=== PATIENT | male | born 1940 | race Caucasian/White ===

== ENCOUNTER 2017-11-14 09:29 | Inpatient (IN) | payer OTHER ==
[~2017-11-14] VITALS: Ht 182.9 cm; Wt 158.7 kg
[~2017-11-14 09:29] MED LIST: ALBU1AER9 INH; ALPR-411 PO; ATOR-24 PO; GABA-112 PO; LPD600 PO; LPR25 PO; MELO7.5T5 PO; OXYC-57 PO
[2017-11-14] MEDS ORDERED: FENTANYL CITRATE INJ 50 MCG/1 ML 2 ML VIAL IV STA (09:40)
[2017-11-14] MEDS ORDERED: ASCO1CAP3 PO (09:47)
[2017-11-14] MEDS ORDERED: ASPI81TA28 PO (09:47)
[2017-11-14] MEDS ORDERED: OMEG10007 PO (09:47)
[2017-11-14] MEDS ORDERED: MULT-506 PO (09:47)
--- NOTE | 2017-11-14 09:52 | EMERGENCY ROOM VISIT NOTE ---
History Report prepared by Ralph: Rinku Figueroa Under the Supervision of: Dr. Chino Brown M.D. First contact with patient: 09:10 Chief Complaint: FALL Stated Complaint: FALL - R HIP PAIN History of Present Illness The patient is a 77 year old male who presents to the Emergency Room with complaints of right hip pain s/p mechanical fall. Notes severe right hip pain initially which is improved. Also with pain in right wrist. no head/neck injury. No blood thinner use. Notes unable to walk due to pain. Given 100mcg fentanyl by EMS with improvement in pain. No history of hip/wrist injuries. Previous bilateral knee surgeries many years ago. Ate 4 hours prior to arrival. Source of History: patient Onset: [employer] Position: other (R hip) Timing: constant Modifying Factors (Worsening): movement Associated Symptoms: No LOC, No headache, No neck pain, No chest pain Note: Patient reports right wrist pain. He denies head strike, syncope, and shoulder pain. Review of Systems See HPI for pertinent positives & negatives. A total of 10 systems reviewed and were otherwise negative. Past Medical & Surgical Medical Problems: (1) Hyperlipidemia Surgical Problems: (1) History of knee surgery (2) S/P cholecystectomy Family History Diabetes mellitus Social History Smoking Status: Former Smoker Alcohol Use: none Drug Use: none Marital Status: Housing Status: lives with family Occupation Status: retired Current/Historical Medications Scheduled Ascorbic Acid (Vitamin C), 500 MG PO DAILY Aspirin (Aspirin Ec), 81 MG PO DAILY Atorvastatin (Lipitor), 20 MG PO HS Fish Oil ([place]-3), 1 CAP PO DAILY Gabapentin (Neurontin), 400 MG PO TID Gemfibrozil (Gemfibrozil), 600 MG PO BID Metoprolol Tartrate (Lopressor), 12.5 MG PO BID Multivitamin (Multivitamin), 1 TAB PO DAILY Scheduled PRN Albuterol (Proair Hfa), 2 PUFFS INH Q4H PRN for SOB/Wheezing Allergies Coded Allergies: No Known Allergies (Unverified , 10/26/14) Physical Exam Vital Signs Date Time Temp Pulse Resp B/P (MAP) Pulse Ox O2 Delivery O2 Flow Rate FiO2 11/14/17 12:00 77 17 146/79 94 Nasal Cannula 3.0 11/14/17 10:37 73 17 140/68 93 Nasal Cannula 3.0 11/14/17 09:56 67 18 122/58 93 Nasal Cannula 3.0 11/14/17 09:44 91 Nasal Cannula 3.0 11/14/17 09:39 36.9 68 18 124/70 86 Room Air Physical Exam GENERAL: Patient is uncomfortable appearing and in moderate distress. HEENT: No acute trauma, normocephalic atraumatic, mucous membranes moist, no nasal congestion, no scleral icterus. NECK: No stridor, no adenopathy, no meningismus, trachea is midline. LUNGS: No dyspnea. Clear to auscultation and equal bilaterally. No wheeze, no rhonchi. HEART: Regular rate and rhythm. No murmurs, rubs, gallops appreciated. ABDOMEN: Soft, nontender, bowel sounds positive, no masses appreciated, no peritonitis. BACK: No midline tenderness, no CVA tenderness EXTREMITIES: No cyanosis, no edema. Shortened externally rotated right leg. Tenderness to palpation of proximal femur. Severe pain of range of motion of right leg. Distal pulses in tact. Deformity of right wrist. Tenderness to palpation over right distal radius pain on range of motion. NEUROLOGIC: Alert and oriented, no acute motor or sensory deficits, no focal weakness, cranial nerves grossly intact. SKIN: No rash, no jaundice, no diaphoresis. Mild peripheral vascular disease under skin Medical Decision & Procedures ER Provider Diagnostic Interpretation: Radiology results and stated below per my review and radiologist interpretation: SINGLE VIEW CHEST CLINICAL HISTORY: Fall. Preoperative examination FINDINGS: An AP, portable, semierect chest radiograph is compared to study dated 11/04/2014 and correlated with chest CT dated 10/27/2014. The examination is degraded by portable technique and apical lordotic positioning. The heart is top normal for projection and there is atherosclerotic calcification of the thoracic aorta. Chronic interstitial thickening is similar to previous. There is chronic elevation of the left hemidiaphragm. Linear atelectasis/scarring is again seen in the left lower lung. There is no airspace consolidation typical for pneumonia or large pleural effusion. No pneumothorax is seen. The skeletal structures are osteopenic. The bony thorax is grossly intact. Arthritic change is noted in the shoulders. IMPRESSION: Chronic parenchymal changes as above with no acute cardiopulmonary abnormality. Electronically signed by: Eddie Crum M.D. 11/14/2017 10:52 AM Dictated Date/Time: 11/14/2017 10:50 AM SINGLE VIEW PELVIS; 2 VIEWS RIGHT FEMUR CLINICAL HISTORY: Fall with right hip pain. FINDINGS: AP view of the pelvis with AP and crosstable lateral views of the right femur are obtained. No prior studies are available for comparison at the time of dictation. Skeletal structures are osteopenic. The bony pelvis and the left proximal femur are intact. There is a mildly distracted intertrochanteric fracture of the right proximal femur with mild angulation and medial avulsion of the lesser trochanter. Overlying soft tissue edema is observed. The distal right femur is intact. Arthritic changes present in the hips and right knee. Large enthesophytes arise from the anterior superior iliac spine. Postoperative changes partially imaged in the right tibial plateau. Chronic appearing deformity is questioned in the left pubic ring. Lumbosacral spondylosis is partially imaged. Calcified phleboliths are observed in the pelvis. No bowel obstruction is seen. IMPRESSION: 1. Intertrochanteric fracture of the right femur as above with overlying soft tissue edema. 2. The remainder of the right femur appears intact. 3. No acute fracture is clearly seen involving the bony pelvis or the left hip. 4. Question chronic posttraumatic deformity in the left pubic ring. Correlation with the patient's medical history will be required. Consider dedicated left hip views if there is clinical concern for left pubic ring fracture. 5. Osteopenia and degenerative change as above. Electronically signed by: Eddie Crum M.D. 11/14/2017 10:59 AM Dictated Date/Time: 11/14/2017 10:55 AM RIGHT FOREARM 2 VIEWS; RIGHT WRIST 5 VIEWS CLINICAL HISTORY: Fall with right wrist injury. FINDINGS: AP and lateral views of the right forearm with 5 additional views of the right wrist are obtained. No prior studies are available for comparison at the time of dictation. The wrist films are degraded by suboptimal positioning. The skeletal structures are osteopenic. There is a tiny avulsion fracture of the ulnar styloid. There is an impacted and comminuted fracture of the distal radial metaphysis with intra-articular extension. There are posteriorly distracted fragments and mild apex dorsal angulation. Significant overlying soft tissue edema is observed. There is a nondistracted fracture involving the distal aspect of the scaphoid. Advanced arthritic change is present at the first carpometacarpal joint with bony sclerosis, overgrowth, and subluxation. Milder arthritic change is seen throughout the remainder of the wrist. Arthritic change is also seen at the distal radioulnar joint. No erosive disease is identified. The proximal radius and ulna are intact. The elbow joint is grossly preserved. IMPRESSION: 1. There is an impacted and comminuted fracture of the distal radial metaphysis with intra-articular extension as detailed above with overlying soft tissue edema. 2. There is a small avulsion fracture of the ulnar styloid. 3. There is a nondistracted fracture of the distal scaphoid. 4. Osteopenia and arthritic change as above. Electronically signed by: Eddie Crum M.D. 11/14/2017 11:05 AM Dictated Date/Time: 11/14/2017 11:00 AM SINGLE VIEW PELVIS; 2 VIEWS RIGHT FEMUR CLINICAL HISTORY: Fall with right hip pain. FINDINGS: AP view of the pelvis with AP and crosstable lateral views of the right femur are obtained. No prior studies are available for comparison at the time of dictation. Skeletal structures are osteopenic. The bony pelvis and the left proximal femur are intact. There is a mildly distracted intertrochanteric fracture of the right proximal femur with mild angulation and medial avulsion of the lesser trochanter. Overlying soft tissue edema is observed. The distal right femur is intact. Arthritic changes present in the hips and right knee. Large enthesophytes arise from the anterior superior iliac spine. Postoperative changes partially imaged in the right tibial plateau. Chronic appearing deformity is questioned in the left pubic ring. Lumbosacral spondylosis is partially imaged. Calcified phleboliths are observed in the pelvis. No bowel obstruction is seen. IMPRESSION: 1. Intertrochanteric fracture of the right femur as above with overlying soft tissue edema. 2. The remainder of the right femur appears intact. 3. No acute fracture is clearly seen involving the bony pelvis or the left hip. 4. Question chronic posttraumatic deformity in the left pubic ring. Correlation with the patient's medical history will be required. Consider dedicated left hip views if there is clinical concern for left pubic ring fracture. 5. Osteopenia and degenerative change as above. Electronically signed by: Eddie Crum M.D. 11/14/2017 10:59 AM Dictated Date/Time: 11/14/2017 10:55 AM RIGHT FOREARM 2 VIEWS; RIGHT WRIST 5 VIEWS CLINICAL HISTORY: Fall with right wrist injury. FINDINGS: AP and lateral views of the right forearm with 5 additional views of the right wrist are obtained. No prior studies are available for comparison at the time of dictation. The wrist films are degraded by suboptimal positioning. The skeletal structures are osteopenic. There is a tiny avulsion fracture of the ulnar styloid. There is an impacted and comminuted fracture of the distal radial metaphysis with intra-articular extension. There are posteriorly distracted fragments and mild apex dorsal angulation. Significant overlying soft tissue edema is observed. There is a nondistracted fracture involving the distal aspect of the scaphoid. Advanced arthritic change is present at the first carpometacarpal joint with bony sclerosis, overgrowth, and subluxation. Milder arthritic change is seen throughout the remainder of the wrist. Arthritic change is also seen at the distal radioulnar joint. No erosive disease is identified. The proximal radius and ulna are intact. The elbow joint is grossly preserved. IMPRESSION: 1. There is an impacted and comminuted fracture of the distal radial metaphysis with intra-articular extension as detailed above with overlying soft tissue edema. 2. There is a small avulsion fracture of the ulnar styloid. 3. There is a nondistracted fracture of the distal scaphoid. 4. Osteopenia and arthritic change as above. Electronically signed by: Eddie Crum M.D. 11/14/2017 11:05 AM Dictated Date/Time: 11/14/2017 11:00 AM Laboratory Results 11/14/17 09:52 Red Blood Count 4.65, Mean Corpuscular Volume 100.0, Mean Corpuscular Hemoglobin 33.8, Mean Corpuscular Hemoglobin Concent 33.8, Mean Platelet Volume 12.6, Neutrophils (%) (Auto) 78.6, Lymphocytes (%) (Auto) 13.2, Monocytes (%) ( Auto) 6.1, Eosinophils (%) (Auto) 1.3, Basophils (%) (Auto) 0.5, Neutrophils # ( Auto) 5.87, Lymphocytes # (Auto) 0.99, Monocytes # (Auto) 0.46, Eosinophils # ( Auto) 0.10, Basophils # (Auto) 0.04 11/14/17 09:52 Test 11/14/17 09:52 White Blood Count 7.48 K/uL (4.8-10.8) Red Blood Count 4.65 M/uL (4.7-6.1) Hemoglobin 15.7 g/dL (14.0-18.0) Hematocrit 46.5 % (42-52) Mean Corpuscular Volume 100.0 fL (80-100) Mean Corpuscular Hemoglobin 33.8 pg (25-34) Mean Corpuscular Hemoglobin Concent 33.8 g/dl (32-36) Platelet Count 91 K/uL (130-400) Mean Platelet Volume 12.6 fL (7.4-10.4) Neutrophils (%) (Auto) 78.6 % Lymphocytes (%) (Auto) 13.2 % Monocytes (%) (Auto) 6.1 % Eosinophils (%) (Auto) 1.3 % Basophils (%) (Auto) 0.5 % Neutrophils # (Auto) 5.87 K/uL (1.4-6.5) Lymphocytes # (Auto) 0.99 K/uL (1.2-3.4) Monocytes # (Auto) 0.46 K/uL (0.11-0.59) Eosinophils # (Auto) 0.10 K/uL (0-0.5) Basophils # (Auto) 0.04 K/uL (0-0.2) RDW Standard Deviation 46.7 fL (36.4-46.3) RDW Coefficient of Variation 12.9 % (11.5-14.5) Immature Granulocyte % (Auto) 0.3 % Immature Granulocyte # (Auto) 0.02 K/uL (0.00-0.02) Platelet Estimate DECREASED Prothrombin Time 11.4 SECONDS (9.0-12.0) Prothromb Time International Ratio 1.1 (0.9-1.1) Activated Partial Thromboplast Time 23.8 SECONDS (21.0-31.0) Partial Thromboplastin Ratio 0.9 Anion Gap 3.0 mmol/L (3-11) Est Creatinine Clear Calc Drug Dose 103.0 ml/min Estimated GFR () 92.0 Estimated GFR (Non- 79.4 BUN/Creatinine Ratio 23.6 (10-20) Calcium Level 9.3 mg/dl (8.5-10.1) Troponin I < 0.015 ng/ml (0-0.045) Laboratory results as reviewed by me. Medications Administered Medications (Trade) Dose Ordered Sig/Lacey Route Start Time Stop Time Status Last Admin Dose Admin Fentanyl Citrate (Fentanyl Inj) 100 mcg NOW STAT IV 11/14/17 09:40 11/14/17 09:41 DC 11/14/17 09:59 100 MCG Ondansetron HCl (Zofran Inj) 4 mg STK-MED ONCE .ROUTE 11/14/17 10:00 11/14/17 10:01 DC 11/14/17 10:02 4 MG ECG Indication: other (Fall) Rate (beats per minute): 64 Rhythm: normal sinus Findings: PAC, other (bifascicular block; QTC of 474) Change: EKG interpreted by me. ED Course 909: The patient was evaluated in room B4. A complete history and physical exam was performed. 1000: The patient was nauseous after pain meds and is being given Zofran. 1103: I checked on the patient and his pain is under control. Orthopedics is paged. 1115: I spoke with Dr. Lino of orthopedics. 1129: I spoke with Dr. Magana and discussed the patient's case. The patient will be evaluated for further treatment and disposition. Medical Decision Pleasant 77 yr old male with mechanical fall at home resulting in right hip pain and right wrist pain. Pain controlled with IV narcotics. Imaging reveals right hip and wrist fractures. Ortho on board, splint wrist until OR later today. Pre-op labs/cxr/ekg done. No CT Head/Neck as no injury nor pain in these areas. Head Trauma GCS Score: 15 Medication Reconcilliation Current Medication List: was personally reviewed by me Blood Pressure Screening Patient's blood pressure: Normal blood pressure Blood pressure disposition: Did not require urgent referral Consults Time Called: 1113 Consulting Physician: Dr. Maico Lino Returned Call: [address] Lino of orthopedics and discussed the patient plan. Additional Consults: Time Called: 1120 Consulted Physician: Dr. Magana Returned Call: 1125 Additional Comments: Discussed the patient's case. The patient will be evaluated for further treatment and disposition. Impression Primary Impression: Intertrochanteric fracture of right hip Additional Impression: Right wrist fracture Scribe Attestation The scribe's documentation has been prepared under my direction and personally reviewed by me in its entirety. I confirm that the note above accurately reflects all work, treatment, procedures, and medical decision making performed by me. Departure Information Dispostion Being Evaluated By Hospitalist Referrals Maico Mcdonald D.O. (PCP) Patient Instructions My [facility] Problem Qualifiers
[2017-11-14] MEDS ORDERED: ONDANSETRON INJ 2 MG/ML 2 ML VIAL ONE (10:00)
[2017-11-14 10:17] LABS: INR 1.1 (0.9-1.1); PTT PATIENT 23.8 SECONDS (21.0-31.0)
[2017-11-14 10:22] LABS: BLOOD UREA NITROGEN 22 mg/dl (7-18); CALCIUM 9.3 mg/dl (8.5-10.1); CARBON DIOXIDE 30 mmol/L (21-32); CREATININE 0.92 mg/dl (0.60-1.40); GLUCOSE 173 mg/dl (70-99); POTASSIUM 4.3 mmol/L (3.5-5.1); SODIUM 139 mmol/L (136-145)
[2017-11-14 10:33] LABS: BASO % 0.5 %; BASO ABS # 0.04 K/uL (0-0.2); EOS % 1.3 %; HEMATOCRIT 46.5 % (42-52); HEMOGLOBIN 15.7 g/dL (14.0-18.0); IG# 0.02 K/uL (0.00-0.02); LYMPH % 13.2 %; LYMPH ABS # 0.99 K/uL (1.2-3.4); MEAN CORPUSCULAR HEMOGLOBIN 33.8 pg (25-34); MEAN CORPUSCULAR HGB CONC 33.8 g/dl (32-36); MEAN PLATELET VOLUME 12.6 fL (7.4-10.4); MONO % 6.1 %; MONO ABS # 0.46 K/uL (0.11-0.59); NEUT % 78.6 %; NEUT ABS # 5.87 K/uL (1.4-6.5); PLATELET COUNT 91 K/uL (130-400); RED CELL DISTRIBUTION WIDTH CV 12.9 % (11.5-14.5); RED CELL DISTRIBUTION WIDTH SD 46.7 fL (36.4-46.3); WHITE BLOOD COUNT 7.48 K/uL (4.8-10.8)
--- NOTE | 2017-11-14 10:54 | DIAGNOSTIC IMAGING REPORT ---
SINGLE VIEW CHEST CLINICAL HISTORY: Fall. Preoperative examination FINDINGS: An AP, portable, semierect chest radiograph is compared to study dated 11/04/2014 and correlated with chest CT dated 10/27/2014. The examination is degraded by portable technique and apical lordotic positioning. The heart is top normal for projection and there is atherosclerotic calcification of the thoracic aorta. Chronic interstitial thickening is similar to previous. There is chronic elevation of the left hemidiaphragm. Linear atelectasis/scarring is again seen in the left lower lung. There is no airspace consolidation typical for pneumonia or large pleural effusion. No pneumothorax is seen. The skeletal structures are osteopenic. The bony thorax is grossly intact. Arthritic change is noted in the shoulders. IMPRESSION: Chronic parenchymal changes as above with no acute cardiopulmonary abnormality. Electronically signed by: Eddie Crum M.D. 11/14/2017 10:52 AM Dictated Date/Time: 11/14/2017 10:50 AM
--- NOTE | 2017-11-14 11:00 | DIAGNOSTIC IMAGING REPORT ---
SINGLE VIEW PELVIS; 2 VIEWS RIGHT FEMUR CLINICAL HISTORY: Fall with right hip pain. FINDINGS: AP view of the pelvis with AP and crosstable lateral views of the right femur are obtained. No prior studies are available for comparison at the time of dictation. Skeletal structures are osteopenic. The bony pelvis and the left proximal femur are intact. There is a mildly distracted intertrochanteric fracture of the right proximal femur with mild angulation and medial avulsion of the lesser trochanter. Overlying soft tissue edema is observed. The distal right femur is intact. Arthritic changes present in the hips and right knee. Large enthesophytes arise from the anterior superior iliac spine. Postoperative changes partially imaged in the right tibial plateau. Chronic appearing deformity is questioned in the left pubic ring. Lumbosacral spondylosis is partially imaged. Calcified phleboliths are observed in the pelvis. No bowel obstruction is seen. IMPRESSION: 1. Intertrochanteric fracture of the right femur as above with overlying soft tissue edema. 2. The remainder of the right femur appears intact. 3. No acute fracture is clearly seen involving the bony pelvis or the left hip. 4. Question chronic posttraumatic deformity in the left pubic ring. Correlation with the patient's medical history will be required. Consider dedicated left hip views if there is clinical concern for left pubic ring fracture. 5. Osteopenia and degenerative change as above. Electronically signed by: Eddie Crum M.D. 11/14/2017 10:59 AM Dictated Date/Time: 11/14/2017 10:55 AM
--- NOTE | 2017-11-14 11:06 | DIAGNOSTIC IMAGING REPORT ---
RIGHT FOREARM 2 VIEWS; RIGHT WRIST 5 VIEWS CLINICAL HISTORY: Fall with right wrist injury. FINDINGS: AP and lateral views of the right forearm with 5 additional views of the right wrist are obtained. No prior studies are available for comparison at the time of dictation. The wrist films are degraded by suboptimal positioning. The skeletal structures are osteopenic. There is a tiny avulsion fracture of the ulnar styloid. There is an impacted and comminuted fracture of the distal radial metaphysis with intra-articular extension. There are posteriorly distracted fragments and mild apex dorsal angulation. Significant overlying soft tissue edema is observed. There is a nondistracted fracture involving the distal aspect of the scaphoid. Advanced arthritic change is present at the first carpometacarpal joint with bony sclerosis, overgrowth, and subluxation. Milder arthritic change is seen throughout the remainder of the wrist. Arthritic change is also seen at the distal radioulnar joint. No erosive disease is identified. The proximal radius and ulna are intact. The elbow joint is grossly preserved. IMPRESSION: 1. There is an impacted and comminuted fracture of the distal radial metaphysis with intra-articular extension as detailed above with overlying soft tissue edema. 2. There is a small avulsion fracture of the ulnar styloid. 3. There is a nondistracted fracture of the distal scaphoid. 4. Osteopenia and arthritic change as above. Electronically signed by: Eddie Crum M.D. 11/14/2017 11:05 AM Dictated Date/Time: 11/14/2017 11:00 AM
[2017-11-14] MEDS ORDERED: ALBUTEROL HFA 8 GM INHALER INH PRN (12:30)
[2017-11-14] MEDS ORDERED: ACETAMINOPHEN 325 MG TAB PO PRN (12:30)
[2017-11-14] MEDS ORDERED: ALUMINUM/MAGNESIUM/SIMETH (MAALOX MAX) 30 ML UDC PO PRN (12:30)
[2017-11-14] MEDS ORDERED: ONDANSETRON INJ 2 MG/ML 2 ML VIAL IV PRN ×2 (12:30→15:00)
[2017-11-14] MEDS ORDERED: POLYETHYLENE (MIRALAX) 17 GM PACK PO PRN (12:30)
[2017-11-14 13:30] VITALS: BP 108/76; PULSE 79; TEMP 36.9; O2SAT 94
--- NOTE | 2017-11-14 13:36 | HISTORY & PHYSICAL EXAMINATION ---
DATE OF ADMISSION: 11/14/2017 CHIEF COMPLAINT: Status post mechanical fall and right wrist fracture. HISTORY OF PRESENT ILLNESS: This 77-year-old male with past medical history significant for hyperlipidemia, hypertension, presents with mechanical fall and right hip and right wrist fracture. The patient lives alone. He has 2 dogs and today morning when he was checking on his dogs he tripped over and fell down on his right side. His son lives close by and helps him. He was brought into the ER and was found to have impacted and comminuted fracture distal radius with intraarticular extension, avulsion fracture ulnar styloid, nondisplaced fracture of the distal scaphoid and intertrochanteric fracture of the right femur. The patient says pain is under control. The patient said he did not pass out. Denies any chest pain or shortness of breath. No cough, no fever, no chills, no runny nose, no sore throat, no difficulty swallowing. No headaches. No blurred visions, no dizziness, no nausea, no vomiting, no abdominal pain. Appetite is good. Normal bowel and bladder movements. No swelling in the legs. The patient says he is active walks daily, son takes him out. He has no trouble climbing steps. Denies any cardiac problems. Denies any pulmonary issues. Currently resting comfortably, hemodynamically stable. ALLERGIES: No known drug allergies. PAST MEDICAL HISTORY: As mentioned above. PAST SURGICAL HISTORY: Cholecystectomy, umbilical hernia repair, right knee surgery. MEDICATIONS AT HOME: The patient is on Lopressor 12.5 mg p.o. b.i.d. Lipitor 20 mg p.o. at bedtime, gabapentin 400 mg p.o. t.i.d., aspirin 81 mg p.o. daily, albuterol 2 puffs inhalation q. 4 hours p.r.n., but as per patient, he only takes Lopressor and statin. FAMILY HISTORY: Significant for son has hemochromatosis. Mother has cancer. SOCIAL HISTORY: , lives alone. Son checks on him. No tobacco abuse. Quit alcohol a long time back. Used to drink heavily in the past. No drug use. Retired. REVIEW OF SYMPTOMS: As per HPI. Rest of review of symptoms negative. PHYSICAL EXAMINATION: GENERAL: The patient is obese, not in distress. VITAL SIGNS: Temperature 36.9, pulse 77, respirations 17, blood pressure 146/79, oxygen 94% on 3 liters. HEAD, EYES, EARS, NOSE, AND THROAT: No pallor, no icterus. Pupils equal, round and reactive to light. NECK: No JVD, no neck masses, no carotid bruits. CARDIOVASCULAR: S1, S2 heard, regular rate and rhythm, no murmur, no gallop. RESPIRATORY SYSTEM: Clear to auscultation bilaterally. No wheezing, no crackles. ABDOMEN: Soft, bowel sounds present. Nontender. No distention. CENTRAL NERVOUS SYSTEM: Cranial nerves 2-12 grossly intact. Nonfocal. EXTREMITIES: Right wrist slightly swollen. Right lower extremity is shortened and externally rotated. LABORATORY DATA: WBC 7.4, hemoglobin 15.7, hematocrit 46.5, platelets 91. Sodium 139, potassium 4.3, chloride 106, bicarbonate 30, BUN 22, creatinine 0.9, serum glucose 170. Calcium 9.3. Troponin 1 less than 0.015. PT 11.4, INR 1.1. PTT 23.8. Right forearm x-ray shows impacted and comminuted fracture distal radial metaphysis with intraarticular extension, small avulsion fracture of the ulnar styloid, nondisplaced fracture of the distal scaphoid, osteopenia. Pelvis x ray intertrochanteric fracture of the right femur. Chest x-ray, no acute cardiopulmonary abnormalities seen. EKG: Shows normal sinus rhythm with PACs at a rate of 64, right bundle branch block, left anterior fascicular block, right bundle branch block and Left anterior fascicular clocks are are old. ASSESSMENT AND PLAN: This 77-year-old male presents with mechanical fall and right hip and right wrist fracture. 1. Status post mechanical fall right hip and right wrist fracture. Pain control, gentle fluids, ortho consult. Prior to falling, the patient is active and walks daily. No cardiac issues. Chest x-ray unremarkable. EKG unremarkable except for PACs. We will repeat EKG. The patient should be at acceptable risk to proceed with surgery. 2. Hypertension. Continue his Lopressor. Monitor the blood pressure in the hospital. 3. Hyperlipidemia. Continue statin. 4. Obstructive sleep apnea. Continue BiPAP with oxygen 2 liters while sleeping Will also check his lipid profile and hemoglobin HBA1c levels. 5. Deep venous thrombosis prophylaxis, SCDs for now and a postop DVT prophylaxis as per orthopedics. DISPOSITION: Admit to medical floor. PT, OT prior to discharge. Social Service to help with discharge planning. LEVEL 1 FULL CODE. MTDD
[2017-11-14 14:04] VITALS: BP 108/76; PULSE 79; TEMP 36.9; O2SAT 91; O2SAT 94; Ht 182.9 cm; Wt 158.7 kg
[2017-11-14] MEDS: HYDROmorphone INJ 0.5 MG/0.5 ML SYR IV PRN ×3 (14:24→21:22)
[2017-11-14] MEDS: SODIUM CHLORIDE 0.9% 1000ML 1,000 ML IV SCH (14:24)
[2017-11-14] MEDS: GABAPENTIN 400 MG CAP PO SCH ×2 (14:35→21:24)
[2017-11-14] MEDS ORDERED: LABETALOL HCL IV 5 MG/ML 20ML IV PRN (15:00)
[2017-11-14] MEDS ORDERED: ATROPINE SULFATE 0.1 MG/ML 5ML SYR IV PRN (15:00)
[2017-11-14] MEDS ORDERED: FENTANYL CITRATE INJ 50 MCG/1 ML 2 ML VIAL IV PRN (15:00)
[2017-11-14] MEDS ORDERED: HYDROmorphone INJ 1 MG/ML SYR IV PRN (15:00)
[2017-11-14] MEDS ORDERED: MEPERIDINE HCL 25 MG/ML CARP IV PRN (15:00)
[2017-11-14] MEDS ORDERED: EpHEDrine SULFATE INJ 50 MG/ML AMP IV PRN (15:00)
--- NOTE | 2017-11-14 15:27 | Orthopedic Consultation ---
Orthopedic Consultation Date of Consultation: Nov 14, 2017. Attending Physician: Joo Fraser M.D. Reason for Consultation: Right hip, right wrist injury History of Present Illness 77 y.o. male sustained a mechanical ground level fall this morning when he tripped over a dog bed. He denies any syncopal episode or LOC. Fell onto right hip and outstretched right arm. Had immediate pain and inability to bear weight right hip. Right wrist much less painful than right hip. Past Medical/Surgical History Medical Problems: (1) Intertrochanteric fracture of right hip Status: Acute (2) Right wrist fracture Status: Acute Family History Diabetes mellitus Social History Smoking Status: Unknown if Ever Smoked Alcohol Use: none Drug Use: none Marital Status: single Housing Status: lives alone Occupation Status: retired Allergies Coded Allergies: No Known Allergies (Unverified , 10/26/14) Home Medications Scheduled Ascorbic Acid (Vitamin C), 500 MG PO DAILY Aspirin (Aspirin Ec), 81 MG PO DAILY Atorvastatin (Lipitor), 20 MG PO HS Fish Oil ([place]-3), 1 CAP PO DAILY Gabapentin (Neurontin), 400 MG PO TID Gemfibrozil (Gemfibrozil), 600 MG PO BID Metoprolol Tartrate (Lopressor), 12.5 MG PO BID Multivitamin (Multivitamin), 1 TAB PO DAILY Scheduled PRN Albuterol (Proair Hfa), 2 PUFFS INH Q4H PRN for SOB/Wheezing Current Inpatient Medications Current Inpatient Medications Medications (Trade) Dose Ordered Sig/Lacey Route Start Time Stop Time Status Last Admin Dose Admin Acetaminophen (Tylenol Tab) 650 mg Q4H PRN PO 11/14/17 12:30 12/14/17 12:29 Al Hydrox/Mg Hydrox/Simethicone (Maalox Max Susp) 15 ml Q4H PRN PO 11/14/17 12:30 12/14/17 12:29 Polyethylene (Miralax Powder Packet) 17 gm DAILY PRN PO 11/14/17 12:30 12/14/17 12:29 Ondansetron HCl (Zofran Inj) 4 mg Q6H PRN IV 11/14/17 12:30 12/14/17 12:29 Albuterol (Ventolin Hfa Inhaler) 2 puffs Q4H PRN INH 11/14/17 12:30 12/14/17 12:29 Atorvastatin Calcium (Lipitor Tab) 20 mg HS PO 11/14/17 21:00 12/14/17 20:59 Gabapentin (Neurontin Cap) 400 mg TID PO 11/14/17 14:00 12/14/17 13:59 Gemfibrozil (Lopid Tab) 600 mg BID PO 11/14/17 21:00 12/14/17 20:59 Metoprolol Tartrate (Lopressor Tab) 12.5 mg BID PO 11/14/17 21:00 12/14/17 20:59 Multivitamins (Multivitamin Tab) 1 tab DAILY PO 11/15/17 09:00 12/15/17 08:59 Ascorbic Acid (Vitamin C Tab) 500 mg DAILY PO 11/15/17 09:00 12/15/17 08:59 Sodium Chloride 1,000 ml @ 100 mls/hr Q10H IV 11/14/17 14:30 12/14/17 14:29 11/14/17 14:24 100 MLS/HR Hydromorphone HCl (Dilaudid Inj) 0.5 mg Q3HWA PRN IV 11/14/17 12:30 11/28/17 12:29 11/14/17 14:24 0.5 MG Fentanyl Citrate (Fentanyl Inj) 50 mcg Q5M PRN IV 11/14/17 15:00 11/15/17 14:59 UNV Hydromorphone HCl (Dilaudid Inj) 0.5 mg Q5M PRN IV 11/14/17 15:00 11/15/17 14:59 UNV Meperidine HCl (Demerol Inj) 25 mg Q5M PRN IV 11/14/17 15:00 11/15/17 14:59 UNV Ondansetron HCl (Zofran Inj) 4 mg ONE PRN IV 11/14/17 15:00 11/15/17 14:59 UNV Labetalol HCl (Normodyne IV) 5 mg Q5M PRN IV 11/14/17 15:00 11/15/17 14:59 UNV Ephedrine Sulfate (EpHEDrine SULFATE INJ) 5 mg Q5M PRN IV 11/14/17 15:00 11/15/17 14:59 UNV Atropine Sulfate (Atropine Sulfate 0.1mg/ml Inj) 0.5 mg Q1M PRN IV 11/14/17 15:00 11/15/17 14:59 UNV Physical Exam Date Time Temp Pulse Resp B/P (MAP) Pulse Ox O2 Delivery O2 Flow Rate FiO2 11/14/17 14:04 36.9 79 20 108/76 94 Nasal Cannula 3.0 11/14/17 13:30 36.9 79 20 108/76 (87) 94 Nasal Cannula 3.0 11/14/17 13:06 77 17 146/79 94 11/14/17 12:00 77 17 146/79 94 Nasal Cannula 3.0 11/14/17 10:37 73 17 140/68 93 Nasal Cannula 3.0 11/14/17 09:56 67 18 122/58 93 Nasal Cannula 3.0 11/14/17 09:44 91 Nasal Cannula 3.0 11/14/17 09:39 36.9 68 18 124/70 86 Room Air Right leg: Appears shortened and externally rotated. Pain with attempts at motion. Skin over hip intact. No lacerations. No significant swelling. Motor and sensory intact distally in tibial/peroneal distributions. Foot warm and well perfused. Right wrist: Mild swelling. Minimal pain, except with ROM. Skin intact. No lacerations. Motor and sensory intact median, radial, ulnar distributions. Compartments soft and compressible, no pain with passive stretch. Hand is warm and well perfused, 2+ radial pulse. General Appearance: no apparent distress Head: normocephalic Eyes: normal inspection Laboratory Results Last 24 Hours Test 11/14/17 09:52 White Blood Count 7.48 K/uL Red Blood Count 4.65 M/uL Hemoglobin 15.7 g/dL Hematocrit 46.5 % Mean Corpuscular Volume 100.0 fL Mean Corpuscular Hemoglobin 33.8 pg Mean Corpuscular Hemoglobin Concent 33.8 g/dl Platelet Count 91 K/uL Mean Platelet Volume 12.6 fL Neutrophils (%) (Auto) 78.6 % Lymphocytes (%) (Auto) 13.2 % Monocytes (%) (Auto) 6.1 % Eosinophils (%) (Auto) 1.3 % Basophils (%) (Auto) 0.5 % Neutrophils # (Auto) 5.87 K/uL Lymphocytes # (Auto) 0.99 K/uL Monocytes # (Auto) 0.46 K/uL Eosinophils # (Auto) 0.10 K/uL Basophils # (Auto) 0.04 K/uL RDW Standard Deviation 46.7 fL RDW Coefficient of Variation 12.9 % Immature Granulocyte % (Auto) 0.3 % Immature Granulocyte # (Auto) 0.02 K/uL Platelet Estimate DECREASED Prothrombin Time 11.4 SECONDS Prothromb Time International Ratio 1.1 Activated Partial Thromboplast Time 23.8 SECONDS Partial Thromboplastin Ratio 0.9 Sodium Level 139 mmol/L Potassium Level 4.3 mmol/L Chloride Level 106 mmol/L Carbon Dioxide Level 30 mmol/L Anion Gap 3.0 mmol/L Blood Urea Nitrogen 22 mg/dl Creatinine 0.92 mg/dl Est Creatinine Clear Calc Drug Dose 103.0 ml/min Estimated GFR () 92.0 Estimated GFR (Non- 79.4 BUN/Creatinine Ratio 23.6 Random Glucose 173 mg/dl Calcium Level 9.3 mg/dl Troponin I < 0.015 ng/ml Radiology: Right hip intertroch fracture, lesser troch off, no significant subtroch extension. Right wrist distal radius fracture, mostly radial styloid pattern with dorsal subluxation of carpus. Assessment & Plan (1) Right wrist fracture Assessment & Plan: Comminuted right distal radius intraarticular fracture, mostly radial styloid, with dorsal displacement of carpus. -Will require ORIF. Plan for concurrent fixation with hip fracture. (2) Intertrochanteric fracture of right hip Assessment & Plan: Right intertrochanteric hip fracture. Will require ORIF on urgent basis. NPO for surgery. Problem Qualifiers (1) Right wrist fracture: Encounter type: initial encounter Fracture type: closed Qualified Codes: S62.101A - Fracture of unspecified carpal bone, right wrist, initial encounter for closed fracture (2) Intertrochanteric fracture of right hip: Encounter type: initial encounter Fracture type: closed Fracture alignment: displaced Qualified Codes: S72.141A - Displaced intertrochanteric fracture of right femur, initial encounter for closed fracture
[2017-11-14 16:24] VITALS: BP 121/82; PULSE 76; TEMP 36.9; O2SAT 94
[2017-11-14] MEDS: ATORVASTATIN 20 MG TAB PO SCH (21:24)
[2017-11-14] MEDS: METOPROLOL TARTRATE 25 MG TAB PO SCH (21:24)
[2017-11-14] MEDS: GEMFIBROZIL 600 MG TAB PO SCH (21:24)
[2017-11-14 22:29] VITALS: PULSE 94; O2SAT 93
[2017-11-14 23:35] VITALS: BP 119/80; PULSE 91; TEMP 36.7; O2SAT 81
[2017-11-14 23:38] VITALS: O2SAT 92
[2017-11-15] VITALS (8 sets, daily range): BP systolic 99–144; BP diastolic 57–86; PULSE 85–104; TEMP 36.3–36.9; O2SAT 91–98
[2017-11-15] MEDS ORDERED: HYDROmorphone INJ 1 MG/ML SYR IV ONE (00:01)
[2017-11-15] MEDS ORDERED: HYDROmorphone INJ 1 MG/ML SYR IV PRN ×2 (00:15→09:30)
[2017-11-15] MEDS: SODIUM CHLORIDE 0.9% 1000ML 1,000 ML IV SCH ×2 (02:08→16:11)
[2017-11-15 06:46] LABS: HEMOGLOBIN 14.5 g/dL (14.0-18.0); MEAN CELL VOLUME 102.1 fL (80-100); MEAN CORPUSCULAR HEMOGLOBIN 33.6 pg (25-34); MEAN PLATELET VOLUME 12.4 fL (7.4-10.4); PLATELET COUNT 113 K/uL (130-400); RED CELL DISTRIBUTION WIDTH CV 13.1 % (11.5-14.5); RED CELL DISTRIBUTION WIDTH SD 49.2 fL (36.4-46.3); WHITE BLOOD COUNT 10.44 K/uL (4.8-10.8)
[2017-11-15 07:11] LABS: CALCIUM 8.7 mg/dl (8.5-10.1); CREATININE 1.09 mg/dl (0.60-1.40); POTASSIUM 4.9 mmol/L (3.5-5.1)
[2017-11-15 07:26] LABS: BASO % 0.4 %; BASO ABS # 0.04 K/uL (0-0.2); EOS % 0.3 %; EOS ABS # 0.03 K/uL (0-0.5); IG# 0.02 K/uL (0.00-0.02); LYMPH % 11.9 %; LYMPH ABS # 1.24 K/uL (1.2-3.4); MONO % 12.3 %; MONO ABS # 1.28 K/uL (0.11-0.59); NEUT % 74.9 %; NEUT ABS # 7.83 K/uL (1.4-6.5)
[2017-11-15] MEDS ORDERED: MIDAZOLAM HCL 1 MG/ML 2ML VIAL ONE (07:44)
[2017-11-15] MEDS ORDERED: BUPIVACAINE 0.5 % 5 MG/1 ML MPF 30ML VIAL ONE ×2 (07:45→09:46)
[2017-11-15] MEDS ORDERED: LIDOCAINE HCL 1% 20 ML VIAL ONE ×2 (07:45→09:46)
[2017-11-15] MEDS ORDERED: FENTANYL CITRATE INJ 50 MCG/1 ML 2 ML VIAL ONE (07:45)
--- NOTE | 2017-11-15 07:51 | History & Physical Bridge Note ---
H&P Re-Evaluation Bridge Note: I have examined the patient, reviewed the History & Physical and in the interval since the performance of the History & Physical I have noted the following changes of clinical significance: No changes noted
[2017-11-15] MEDS: GABAPENTIN 400 MG CAP PO SCH ×3 (09:00→21:10)
[2017-11-15] MEDS: METOPROLOL TARTRATE 25 MG TAB PO SCH ×2 (09:00→21:10)
[2017-11-15] MEDS ORDERED: NEOSTIGMINE METHYLSULFATE 5 MG/5 ML SYR ONE (09:14)
[2017-11-15] MEDS ORDERED: LIDOCAINE HCL 2% 2 ML VIAL (20MG/ML) ONE (09:14)
[2017-11-15] MEDS ORDERED: PHENYLEPHRINE 100MCG/ML 5ML SYR ONE (09:14)
[2017-11-15] MEDS ORDERED: GLYCOPYRROLATE INJ 0.2 MG/ML VIAL ONE (09:14)
[2017-11-15] MEDS ORDERED: EpHEDrine SULFATE 50MG/5ML SYR ONE (09:14)
[2017-11-15] MEDS ORDERED: ONDANSETRON INJ 2 MG/ML 2 ML VIAL ONE (09:14)
[2017-11-15] MEDS ORDERED: ROCURONIUM BROMIDE 10 MG/ML 5 ML VIAL IV ONE (09:14)
[2017-11-15] MEDS ORDERED: PROPOFOL IV EMULSION 10 MG/ML 20 ML VIAL IV ONE (09:14)
[2017-11-15] MEDS ORDERED: DEXAMETHASONE SOD INJ 4 MG/ML VIAL ONE (09:14)
[2017-11-15] MEDS ORDERED: ATROPINE SULFATE 0.1 MG/ML 5ML SYR IV PRN (09:30)
[2017-11-15] MEDS ORDERED: LABETALOL HCL IV 5 MG/ML 20ML IV PRN (09:30)
[2017-11-15] MEDS ORDERED: EpHEDrine SULFATE INJ 50 MG/ML AMP IV PRN (09:30)
[2017-11-15] MEDS ORDERED: FENTANYL CITRATE INJ 50 MCG/1 ML 2 ML VIAL IV PRN (09:30)
[2017-11-15] MEDS ORDERED: ONDANSETRON INJ 2 MG/ML 2 ML VIAL IV PRN (09:30)
[2017-11-15] MEDS ORDERED: MEPERIDINE HCL 25 MG/ML CARP IV PRN (09:30)
[2017-11-15] MEDS ORDERED: PHENYLEPHRINE HCL INJ 10 MG/ML VIAL ONE (09:49)
--- NOTE | 2017-11-15 11:47 | DIAGNOSTIC IMAGING REPORT ---
R WRIST 2 VIEWS HISTORY: 77 years-old Male RIGHT DISTAL RADIUS AND RIGHT TROCH NAIL status post ORIF of the right wrist COMPARISON: Right wrist radiographs 11/14/2017 TECHNIQUE: 4 spot fluoroscopic images of the right wrist were obtained utilizing 100.4 seconds fluoroscopy time. FINDINGS: Status post ORIF of the comminuted, intra-articular and impacted distal radial fracture with placement of a dorsal plate with multiple fixation screws. There is improved alignment. Previously noted subtle fracture of the scaphoid not clearly seen. Multifocal degenerative changes again noted. Expected postsurgical soft tissue swelling and deep tissue air about the distal radius. Ulnar styloid fracture noted. IMPRESSION: Status post ORIF of the comminuted intra-articular distal radial fracture with improved alignment. The above report was generated using voice recognition software. It may contain grammatical, syntax or spelling errors. Electronically signed by: Sundeep Haji M.D. 11/15/2017 11:45 AM Dictated Date/Time: 11/15/2017 11:43 AM
--- NOTE | 2017-11-15 11:49 | DIAGNOSTIC IMAGING REPORT ---
R HIP OR FILMS HISTORY: 77 years-old Male RIGHT DISTAL RADIUS AND RIGHT TROCH NAIL status post placement of a trochanteric nail within the right femur. COMPARISON: Right femur radiographs 11/14/2017 TECHNIQUE: 5 spot fluoroscopic images of the right femur were obtained utilizing 108.5 seconds fluoroscopy time. FINDINGS: Status post placement of an intratrochanteric nail within the femoral neck with medullary katey fixating the previously noted displaced acute intertrochanteric fracture. There is improved alignment. The bones appear mildly demineralized. Surgical janet are noted overlying the left thigh. Single cannulated screw traverses the medullary katey within the proximal diaphyseal right femur. IMPRESSION: Status post placement of an trochanteric nail fixating the previously described acute intertrochanteric fracture of the right femur demonstrating improved alignment. The above report was generated using voice recognition software. It may contain grammatical, syntax or spelling errors. Electronically signed by: Sundeep Haji M.D. 11/15/2017 11:48 AM Dictated Date/Time: 11/15/2017 11:45 AM
--- NOTE | 2017-11-15 11:55 | [facility] Post Operative Brief Note ---
Immediate Operative Summary Operative Date Nov 15, 2017. Pre-Operative Diagnosis Right comminuted intertrochanteric hip fracture, Right wrist comminuted 3-part intraarticular distal radius fracture Post-Operative Diagnosis Right comminuted intertrochanteric hip fracture, Right wrist comminuted 3-part intraarticular distal radius fracture Procedure(s) Performed Right Hip Trochanteric Nail; Open Reduction Internal Fixation Right Wrist Fracture Surgeon Dr. Lino Adjunct Professor Of Voice Surgeon(s) Maico Garcia PA-C Estimated Blood Loss 100 mL Findings Consistent with Post-Op Diagnosis Fluids (cc crystalloids) 1500 Specimens None per surgeon Drains None Anesthesia Type General Complication(s) none Disposition Accompanied Pt To Recover: no Disposition: Recovery Room / PACU
[2017-11-15] MEDS ORDERED: CEFAZOLIN IV 2,000 MG in DEXTROSE 5% 50ML 50 ML IV SCH (12:30)
--- NOTE | 2017-11-15 12:37 | [facility] Operative Report ---
Operative Report Operative Date Nov 15, 2017. Pre-Operative Diagnosis 1. Right comminuted intertrochanteric hip fracture 2. Right wrist comminuted 4-part intraarticular distal radius fracture Post-Operative Diagnosis Same Procedure(s) Performed 1. Intramedullary nailing of right comminuted intertrochanteric hip fracture ( 51870) 2. ORIF of right wrist comminuted 4-part intraarticular distal radius fracture (06072) Surgeon Dr. Lino Orange Picker Machine Operator Surgeon(s) Maico Garcia PA-C Estimated Blood Loss 100 mL Findings Comminuted fractures of hip and distal radius Fluids 1500 Specimens None per surgeon Drains None Anesthesia General Complication(s) None Disposition Recovery Room / PACU Indications 77-year-old male who injured his right wrist and right hip after ground-level fall. X-rays showed comminuted and displaced fractures of his right intertrochanteric hip, and right distal radius. Surgical intervention was recommended for optimal future outcome. Description of Procedure Implants used: Hip: Synthes [id number] intermediate length Trochanteric Fixation Nail with an [id number] helical blade and a 5x46mm distal locking screw Wrist: Synthes 7-hole distal, 4-hole shaft 2.4/2.7mm dual column variable angle distal radius volar locking plate Mr. Medrano was identified in the preoperative holding area. Operative extremities were marked. He was then brought back to the operating room and placed supine on the operating room table. General anesthesia was induced without complication. 2 g of Ancef were infused intravenously for antibiotic prophylaxis. He was then positioned on the fracture table with the right leg in longitudinal traction and the left leg up in the well leg diehl. All bony prominences were well-padded. Traction was then applied to the right hip, and reduction maneuvers were performed under fluoroscopic imaging. Once acceptable reduction was achieved, we then prepped and draped the right hip and sterile sterile fashion using chlorhexidine prep. I localized the tip of the greater trochanter under fluoroscopic imaging. Incision was made proximal to this. I carried the incision through the thick subcutaneous adipose tissue layer down to the deep fascia, which was incised in line with its fibers. Greater trochanter was palpated. Entry guidewire was placed at the tip of the greater trochanter in proper position as visualized under fluoroscopic imaging. The guidewire was then advanced into the greater trochanter, and the entry reamer was passed over this wire. There was significant lateral displacement of the femoral shaft from the comminuted intratrochanteric segment, and therefore a ball-tipped guidewire was passed through the entry hole in the greater trochanter down into the femoral shaft while holding the femoral shaft medially reduced. I then selected a Synthes [id number] intermediate length Trochanteric Fixation Nail for fixation. This was passed over the ball-tipped guidewire and impacted down into proper position. At this point I then focused on the comminuted proximal portion of the fracture. Jay elevator was passed through the proximal incision over the anterior femoral neck. This was forced posteriorly to correct the apex-anterior angulation across the fracture site. I then held this reduction while advancing a guidewire up into the femoral neck and head into proper center-center position under fluoroscopic imaging. We then measured for the helical blade, and selected a 115 mm length helical blade. The helical blade drill was then set to appropriate depth and drilled over the guidewire. Helical blade was then impacted into place. Finally I attached the targeting guide for the distal locking screw. This was drilled and measured at 46 mm. Final fluoroscopic imaging was taken to ensure proper hardware position, screw length, and fracture reduction. I was satisfied with all these things. Wounds were copiously irrigated with sterile saline. Deep fascia was closed with #1 Vicryl suture, and deep subcutaneous tissue was also closed with #1 Vicryl suture. Subcutaneous tissues closed with 2-0 Vicryl, and skin was closed with janet. Wound bed was then anesthetized with a 50-50 mixture of 1% lidocaine and 0.5% Marcaine without epinephrine. Sterile dressings were then applied with Xeroform, sterile gauze, and foam tape. Drapes were then removed. We then turned attention to the right wrist injury. Tourniquet was placed on the right upper arm. Right arm was then prepped and draped in standard sterile fashion using chlorhexidine prep. The right arm was exsanguinated with an Esmarch, and then tourniquet was inflated. I then made a longitudinal incision to the radial side of the flexor carpi radialis tendon. I cheated the incision more radial than normal, due to the comminuted portion of the fracture mostly involving the radial styloid. Dissection was carried bluntly through the subcutaneous tissue. Radial artery and superficial sensory branch of the radial nerve were identified and protected throughout the procedure. I dissected down to the fracture site. Pronator quadratus muscle was elevated off the volar aspect radius from radial to ulnar. This exposed the significantly comminuted radial styloid fracture site. There was some articular impaction visible within the fracture line. This was elevated with a freer elevator. I then performed a reduction maneuver to reduce the radial styloid fragments. 2 separate K-wires were inserted through the separate fragments to hold them in a reduced position while applying the fixation plate. Once I had achieved acceptable reduction, I then selected an appropriate plate from the Synthes variable angle 2 column volar distal radius locking plate set. I selected a plate with 7 hole width distally. Unfortunately, the plate with 3 shaft holes was not available, so the plate with 4 shaft holes was selected. This was pinned into appropriate position. I verified proper plate position under fluoroscopic imaging. Fracture reduction required some additional manipulation and provisional pinning at this point. The fragment positions were adjusted as necessary to achieve proper acceptable reduction. I first inserted to screws into the radial shaft first all the plate proper position. I used a 2.7 mm cortical screws for this. I then placed the 2.4 mm variable-angle distal locking screws. I first focused on the radial styloid. Again fracture fragments were manipulated to achieve proper reduction, and then screws were advanced into the radial styloid. This was repeated throughout the 5 screw holes in the distal row. I finally placed 1 more screw from the proximal row into the radial styloid for additional fixation. I was able achieve satisfactory reduction and fixation of the fracture fragments. Finally I inserted the last 2 radial shaft cortical screws to complete the fixation. Final fluoroscopic imaging was used to ensure proper screw length, fracture reduction, and hardware position. I was satisfied with all these things. I then copiously irrigated the wound with sterile saline. I then repaired the pronator quadratus over the plate to protect the flexor tendons with 3-0 Vicryl suture. Subcutaneous tissues also closed with 3-0 Vicryl suture. Skin was closed with 3-0 Prolene. Wound bed was then anesthetized with a 50-50 mixture of 1% lidocaine and 0.5% Marcaine without epinephrine. Sterile dressings were then applied with Xeroform, sterile gauze, and sterile web roll, followed by a volar plaster splint, which was overwrapped with an Marty wrap. Drapes were then removed, the patient was awakened from general anesthesia, transferred to a stretcher, and taken to the postanesthesia care unit in stable condition. There are no major complications from procedure. I was present and scrubbed for the entire procedure. I attest to the content of the Intraoperative Record and any orders documented therein. Any exceptions are noted below.
--- NOTE | 2017-11-15 13:02 | Anesthesiology Progress Note ---
Anesthesia Post Op Note Date & Time Nov 15, 2017 at 13:02 Vital Signs Pain Intensity: 0 Vital Signs Past 12 Hours Date Time Temp Pulse Resp B/P (MAP) Pulse Ox O2 Delivery O2 Flow Rate FiO2 11/15/17 12:45 36.8 88 16 118/58 95 Nasal Cannula 4 11/15/17 12:35 91 16 142/71 96 Nasal Cannula 4 11/15/17 12:25 89 16 133/65 97 Nasal Cannula 4 11/15/17 12:15 94 16 129/80 99 Oxymask 15 11/15/17 12:05 96 16 128/81 96 Oxymask 15 11/15/17 11:58 36.2 100 20 134/100 93 Oxymask 11/15/17 07:10 Nasal Cannula 3.0 11/15/17 06:41 36.7 96 17 144/86 (105) 91 Nasal Cannula 3.0 Notes Mental Status: alert / awake / arousable, participated in evaluation Pt Amnestic to Procedure: Yes Nausea / Vomiting: adequately controlled Pain: adequately controlled Airway Patency, RR, SpO2: stable & adequate BP & HR: stable & adequate Hydration State: stable & adequate Anesthetic Complications: no major complications apparent
--- NOTE | 2017-11-15 13:12 | DIAGNOSTIC IMAGING REPORT ---
R WRIST 2 VIEW HISTORY: 77 years-old Male Postop postoperative exam. COMPARISON: Fluoroscopic images of the right wrist of same day TECHNIQUE: 2 views of the right breast FINDINGS: Status post placement of a volar plate and screw fusion hardware fixating the previously noted comminuted intra-articular distal radial fracture demonstrating improved alignment. On the lateral view, the distal most cannulated screws appear to project into the region of the radiocarpal joint. There may also be some mild dorsal subluxation of the lunate in relation to the distal radius. Nondisplaced ulnar styloid fracture noted. Persistent cortical buckling of the distal radius is noted of a few millimeters. Fine bony detail obscured by overlying casting material. Previously noted scaphoid fracture is not well seen. Degenerative changes are noted about the radiocarpal joint and carpal metacarpal joints. The bones appear osteopenic. Expected soft tissue swelling and deep tissue air is noted about the distal forearm and wrist. IMPRESSION: 1. Status post ORIF of the comminuted intra-articular distal radial fracture with improved alignment. 2. Suggestion of subtle dorsal subluxation of the lunate in relation to the distal radius which may be accentuated by positioning. Correlate with clinical exam. 3. Unchanged nondisplaced acute ulnar styloid fracture. The above report was generated using voice recognition software. It may contain grammatical, syntax or spelling errors. Electronically signed by: Sundeep Haji M.D. 11/15/2017 1:11 PM Dictated Date/Time: 11/15/2017 1:07 PM
--- NOTE | 2017-11-15 13:16 | DIAGNOSTIC IMAGING REPORT ---
R HIP UNILATERAL 2 VIEWS HISTORY: 77 years-old Male postop trochanteric nail status post placement of a right trochanteric nail COMPARISON: Intraoperative spot. Images of the right hip of same day at 11:00 AM TECHNIQUE: 3 radiographic views of the right hip FINDINGS: Postoperative changes compatible with placement of an intratrochanteric nail fixating the previously described acute right femoral intertrochanteric fracture. Intramedullary katey is also noted with a fixating cannulated screw within the proximal diaphyseal right femur. There is improved alignment. There is a 4.6 x 2.3 cm density suggesting a bone fragment medial to the femoral neck. Expected postsurgical soft tissue swelling and deep tissue air with skin janet in place. 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 IMPRESSION: 1. Status post placement of an intratrochanteric nail fixating the previously noted acute intertrochanteric fracture now with improved alignment. 2. 4.6 x 2.3 cm density medial to the femoral neck suggests bone fragment. The above report was generated using voice recognition software. It may contain grammatical, syntax or spelling errors. Electronically signed by: Sundeep Haji M.D. 11/15/2017 1:15 PM Dictated Date/Time: 11/15/2017 1:12 PM
[2017-11-15] MEDS: MULTIVITAMIN TAB PO SCH (13:48)
[2017-11-15] MEDS: GEMFIBROZIL 600 MG TAB PO SCH ×2 (13:50→21:10)
[2017-11-15] MEDS: ASCORBIC ACID 500 MG TAB PO SCH (13:50)
[2017-11-15] MEDS: CEFAZOLIN IV 2,000 MG in SYRINGE 0 ML IV SCH (16:17)
[2017-11-15] MEDS: OXYCODONE/ACETAMINOPHEN 5-325 TAB PO PRN (18:49)
--- NOTE | 2017-11-15 21:01 | Progress Note ---
Medicine Progress Note Date & Time of Visit: Nov 15, 2017 at 14:50 . Subjective CC: Follow-up visit for fractures of right hip and right distal radius. HPI: Intramedullary nailing of right comminuted intertrochanteric hip fracture and ORIF of right wrist comminuted 4-part intraarticular distal radius fracture performed by Dr. Lino. Doing well postoperatively. No chest pain. No cough or dyspnea. No nausea or vomiting. No Foster cath. Postop pain well-controlled. . ROS: as noted above in HPI . Objective Last 8 Hrs Date Time Temp Pulse Resp B/P (MAP) Pulse Ox O2 Delivery O2 Flow Rate FiO2 11/15/17 19:50 36.9 104 20 113/70 (84) 93 Nasal Cannula 3.0 11/15/17 16:00 Nasal Cannula 4.0 11/15/17 15:02 36.3 87 16 102/68 (79) 91 Nasal Cannula 3.0 11/15/17 14:10 36.7 85 18 111/67 (82) 11/15/17 13:27 85 16 99/65 (76) 98 Physical Exam: General- no distress Lungs- clear to auscultation; no respiratory distress Cardiovascular- RRR; no murmur or gallop appreciated; no JVD; no pretibial edema Abdomen- + bowel sounds, soft, nontender Extremities- no cyanosis; no calf tenderness; right wrist splinted; SCD's applied Neuro- alert, oriented Skin- warm & dry . Laboratory Results: Last 24 Hours Test 11/15/17 06:20 White Blood Count 10.44 K/uL Red Blood Count 4.31 M/uL Hemoglobin 14.5 g/dL Hematocrit 44.0 % Mean Corpuscular Volume 102.1 fL Mean Corpuscular Hemoglobin 33.6 pg Mean Corpuscular Hemoglobin Concent 33.0 g/dl Platelet Count 113 K/uL Mean Platelet Volume 12.4 fL Neutrophils (%) (Auto) 74.9 % Lymphocytes (%) (Auto) 11.9 % Monocytes (%) (Auto) 12.3 % Eosinophils (%) (Auto) 0.3 % Basophils (%) (Auto) 0.4 % Neutrophils # (Auto) 7.83 K/uL Lymphocytes # (Auto) 1.24 K/uL Monocytes # (Auto) 1.28 K/uL Eosinophils # (Auto) 0.03 K/uL Basophils # (Auto) 0.04 K/uL RDW Standard Deviation 49.2 fL RDW Coefficient of Variation 13.1 % Immature Granulocyte % (Auto) 0.2 % Immature Granulocyte # (Auto) 0.02 K/uL Sodium Level 137 mmol/L Potassium Level 4.9 mmol/L Chloride Level 103 mmol/L Carbon Dioxide Level 27 mmol/L Anion Gap 7.0 mmol/L Blood Urea Nitrogen 28 mg/dl Creatinine 1.09 mg/dl Est Creatinine Clear Calc Drug Dose 86.9 ml/min Estimated GFR () 75.0 Estimated GFR (Non- 64.7 BUN/Creatinine Ratio 25.9 Random Glucose 152 mg/dl Calcium Level 8.7 mg/dl Magnesium Level 2.0 mg/dl Triglycerides Level 139 mg/dl Cholesterol Level 149 mg/dl HDL Cholesterol 43 mg/dl LDL Cholesterol, Calculated 78 mg/dl VLDL Cholesterol, Calculated 28 mg/dl Cholesterol/HDL Ratio 3.5 Assessment & Plan FRACTURE RIGHT HIP Mechanical fall at home with intertrochanteric fracture of right hip. Intramedullary nailing performed by Dr. Lino. Check vitamin D level. PT / OT. FRACTURE DISTAL RIGHT RADIUS ORIF performed by Dr. Lino. Check vitamin D level. PT / OT. HYPERTENSION Continue metoprolol. DYSLIPIDEMIA Continue atorvastatin and gemfibrozil. VTE PROPHYLAXIS Per Ortho protocol. DISPOSITION Anticipate need for skilled care or inpatient rehab. Internal Medicine follow-up with Dr. Mcdonald. . Current Inpatient Medications: Current Inpatient Medications Medications (Trade) Dose Ordered Sig/Lacey Route Start Time Stop Time Status Last Admin Dose Admin Acetaminophen (Tylenol Tab) 650 mg Q4H PRN PO 11/14/17 12:30 12/14/17 12:29 11/14/17 21:32 650 MG Al Hydrox/Mg Hydrox/Simethicone (Maalox Max Susp) 15 ml Q4H PRN PO 11/14/17 12:30 12/14/17 12:29 Polyethylene (Miralax Powder Packet) 17 gm DAILY PRN PO 11/14/17 12:30 12/14/17 12:29 Ondansetron HCl (Zofran Inj) 4 mg Q6H PRN IV 11/14/17 12:30 12/14/17 12:29 Albuterol (Ventolin Hfa Inhaler) 2 puffs Q4H PRN INH 11/14/17 12:30 12/14/17 12:29 Atorvastatin Calcium (Lipitor Tab) 20 mg HS PO 11/14/17 21:00 12/14/17 20:59 11/14/17 21:24 20 MG Gabapentin (Neurontin Cap) 400 mg TID PO 11/14/17 14:00 12/14/17 13:59 11/15/17 13:51 400 MG Gemfibrozil (Lopid Tab) 600 mg BID PO 11/14/17 21:00 12/14/17 20:59 11/15/17 13:50 600 MG Metoprolol Tartrate (Lopressor Tab) 12.5 mg BID PO 11/14/17 21:00 12/14/17 20:59 11/14/17 21:24 12.5 MG Multivitamins (Multivitamin Tab) 1 tab DAILY PO 11/15/17 09:00 12/15/17 08:59 11/15/17 13:48 1 TAB Ascorbic Acid (Vitamin C Tab) 500 mg DAILY PO 11/15/17 09:00 12/15/17 08:59 11/15/17 13:50 500 MG Sodium Chloride 1,000 ml @ 100 mls/hr Q10H IV 11/14/17 14:30 12/14/17 14:29 11/15/17 16:11 100 MLS/HR Hydromorphone HCl (Dilaudid Inj) 1 mg Q3HWA PRN IV 11/15/17 00:15 11/28/17 12:29 11/15/17 04:42 1 MG Tramadol HCl (Ultram Tab) not relieved by tylenol @ Q6H PRN PO 11/15/17 00:15 12/15/17 00:14 Oxycodone/ Acetaminophen (Percocet 5-325mg Tab) 1 tab Q6H PRN PO 11/15/17 00:15 11/29/17 00:14 11/15/17 18:49 1 TAB Rivaroxaban (Xarelto Tab) 10 mg DAILY PO 11/16/17 09:00 12/16/17 08:59 Cefazolin Sodium 2000 mg/Syringe 10 ml @ 2.5 mls/min Q8H IV 11/15/17 16:00 11/16/17 00:03 1/21/18 16:17 2.5 MLS/MIN
[2017-11-15] MEDS: ATORVASTATIN 20 MG TAB PO SCH (21:10)
[2017-11-15] MEDS: TRAMADOL HCL 50 MG TAB PO PRN (22:22)
[2017-11-16] MEDS: OXYCODONE/ACETAMINOPHEN 5-325 TAB PO PRN ×3 (00:37→13:19)
[2017-11-16] MEDS: SODIUM CHLORIDE 0.9% 1000ML 1,000 ML IV SCH ×3 (01:19→20:54)
[2017-11-16] MEDS: CEFAZOLIN IV 2,000 MG in SYRINGE 0 ML IV SCH (01:20)
[2017-11-16 03:14] VITALS: BP 111/64; PULSE 94; TEMP 36.6; O2SAT 93
[2017-11-16 07:43] LABS: HEMOGLOBIN A1C 6.6 % (4.5-5.6)
--- NOTE | 2017-11-16 07:45 | Orthopedic Progress Note ---
Orthopedic Progress Note Date of Service Nov 16, 2017. Subjective Post OP Day: 1 Reports: feeling well, Denies: chest pain, SOB, nausea / vomiting, light headedness, calf pain Additional Notes: Having some pain off and on but tolerating well. Objective calves soft nontender, N/V intact, splint C/D/I (right forearm), dressing C/D/I , A&O x3, toes mobile Fingers on right hand swollen and ecchymotic but moving well. Good sensation. Cap refill < 2 seconds. Date Time Temp Pulse Resp B/P (MAP) Pulse Ox O2 Delivery O2 Flow Rate FiO2 11/16/17 03:14 36.6 94 18 111/64 (80) 93 Nasal Cannula 3.0 11/16/17 00:10 Nasal Cannula 3.0 11/15/17 23:00 36.7 95 18 113/57 (75) 91 Nasal Cannula 3.0 11/15/17 21:05 104 103/63 (76) 11/15/17 19:50 36.9 104 20 113/70 (84) 93 Nasal Cannula 3.0 11/15/17 16:00 Nasal Cannula 4.0 11/15/17 15:02 36.3 87 16 102/68 (79) 91 Nasal Cannula 3.0 11/15/17 14:10 36.7 85 18 111/67 (82) 11/15/17 13:27 85 16 99/65 (76) 98 11/15/17 13:00 93 Nasal Cannula 4.0 11/15/17 13:00 36.7 91 16 118/75 (89) 93 Nasal Cannula 4.0 11/15/17 13:00 Nasal Cannula 4.0 11/15/17 12:45 36.8 88 16 118/58 95 Nasal Cannula 4 11/15/17 12:35 91 16 142/71 96 Nasal Cannula 4 11/15/17 12:25 89 16 133/65 97 Nasal Cannula 4 11/15/17 12:15 94 16 129/80 99 Oxymask 15 11/15/17 12:05 96 16 128/81 96 Oxymask 15 11/15/17 11:58 36.2 100 20 134/100 93 Oxymask Laboratory Results 24 Hours: Test 11/16/17 04:44 Assessment & Plan Assessment: POD 1 s/p ORIF Right Radius Fx; Right TFN Plan: PT/OT Planning for [facility] (1) Right wrist fracture (2) Intertrochanteric fracture of right hip Inhouse Planning Pain Management: Percocet, Ultram, Dilaudid DVT Prophylaxis: TEDs, SCDs, Xarelto Discharge Planning Discharge Planning: rehab hospital
[2017-11-16 07:59] VITALS: BP 108/67; PULSE 94; TEMP 37; O2SAT 94
[2017-11-16 09:18] LABS: CALCIUM 8.2 mg/dl (8.5-10.1); CREATININE 1.11 mg/dl (0.60-1.40)
[2017-11-16 09:20] LABS: HEMATOCRIT 36.7 % (42-52); HEMOGLOBIN 12.3 g/dL (14.0-18.0); MEAN CELL VOLUME 100.5 fL (80-100); MEAN CORPUSCULAR HEMOGLOBIN 33.7 pg (25-34); MEAN CORPUSCULAR HGB CONC 33.5 g/dl (32-36); RED CELL DISTRIBUTION WIDTH CV 13.1 % (11.5-14.5); RED CELL DISTRIBUTION WIDTH SD 47.7 fL (36.4-46.3)
[2017-11-16] MEDS: METOPROLOL TARTRATE 25 MG TAB PO SCH ×2 (09:20→21:00)
[2017-11-16] MEDS: GEMFIBROZIL 600 MG TAB PO SCH ×2 (09:20→21:00)
[2017-11-16] MEDS: MULTIVITAMIN TAB PO SCH (09:20)
[2017-11-16] MEDS: RIVAROXABAN 10 MG TAB PO SCH (09:21)
[2017-11-16] MEDS: GABAPENTIN 400 MG CAP PO SCH ×3 (09:21→21:00)
[2017-11-16] MEDS: ASCORBIC ACID 500 MG TAB PO SCH (09:21)
[2017-11-16 09:34] LABS: PLATELET COUNT 117 K/uL (130-400)
[2017-11-16 09:36] LABS: BASO % 0.1 %; BASO ABS # 0.02 K/uL (0-0.2); EOS % 0.1 %; EOS ABS # 0.01 K/uL (0-0.5); IG# 0.07 K/uL (0.00-0.02); LYMPH % 9.3 %; LYMPH ABS # 1.29 K/uL (1.2-3.4); MEAN PLATELET VOLUME 12.5 fL (7.4-10.4); MONO % 14.4 %; MONO ABS # 1.99 K/uL (0.11-0.59); NEUT % 75.6 %; NEUT ABS # 10.42 K/uL (1.4-6.5)
[2017-11-16 12:59] VITALS: BP 104/57; O2SAT 90
[2017-11-16 15:28] VITALS: BP 101/63; PULSE 111; TEMP 36.8; O2SAT 96
--- NOTE | 2017-11-16 19:40 | Progress Note ---
Medicine Progress Note Date & Time of Visit: Nov 16, 2017 at 17:20 . Subjective CC: Follow-up visit for hip and wrist fractures. HPI: Doing well. Participated in therapies today. Postop pain fairly well-controlled. ROS: General- no fever, no chills Resp- no cough; no shortness of breath Cardiac- no chest pain, no edema GI- no nausea, no vomiting; passing flatus, no stool yet - no dysuria . Objective Last 8 Hrs Date Time Temp Pulse Resp B/P (MAP) Pulse Ox O2 Delivery O2 Flow Rate FiO2 11/16/17 15:30 Nasal Cannula 2.0 11/16/17 15:28 36.8 111 18 101/63 (76) 96 Nasal Cannula 2.0 11/16/17 12:59 90 Physical Exam: General- lying in bed; no distress Lungs- clear to auscultation; no respiratory distress Cardiovascular- RRR; no murmur or gallop appreciated; no JVD; no pretibial edema Abdomen- + bowel sounds, soft, nontender Extremities- no cyanosis; no calf tenderness; right wrist splinted Neuro- alert, oriented Skin- warm & dry . Laboratory Results: Last 24 Hours Test 11/16/17 08:15 White Blood Count 13.80 K/uL Red Blood Count 3.65 M/uL Hemoglobin 12.3 g/dL Hematocrit 36.7 % Mean Corpuscular Volume 100.5 fL Mean Corpuscular Hemoglobin 33.7 pg Mean Corpuscular Hemoglobin Concent 33.5 g/dl Platelet Count 117 K/uL Mean Platelet Volume 12.5 fL Neutrophils (%) (Auto) 75.6 % Lymphocytes (%) (Auto) 9.3 % Monocytes (%) (Auto) 14.4 % Eosinophils (%) (Auto) 0.1 % Basophils (%) (Auto) 0.1 % Neutrophils # (Auto) 10.42 K/uL Lymphocytes # (Auto) 1.29 K/uL Monocytes # (Auto) 1.99 K/uL Eosinophils # (Auto) 0.01 K/uL Basophils # (Auto) 0.02 K/uL RDW Standard Deviation 47.7 fL RDW Coefficient of Variation 13.1 % Immature Granulocyte % (Auto) 0.5 % Immature Granulocyte # (Auto) 0.07 K/uL Sodium Level 136 mmol/L Potassium Level 5.0 mmol/L Chloride Level 102 mmol/L Carbon Dioxide Level 27 mmol/L Anion Gap 7.0 mmol/L Blood Urea Nitrogen 40 mg/dl Creatinine 1.11 mg/dl Est Creatinine Clear Calc Drug Dose 85.4 ml/min Estimated GFR () 73.3 Estimated GFR (Non- 63.3 BUN/Creatinine Ratio 35.6 Random Glucose 153 mg/dl Calcium Level 8.2 mg/dl Magnesium Level 2.1 mg/dl 25-Hydroxy Vitamin D Total 32.4 ng/ml Assessment & Plan FRACTURE RIGHT HIP Mechanical fall at home with intertrochanteric fracture of right hip. Intramedullary nailing performed by Dr. Lino. Vitamin D level = 34. PT / OT. FRACTURE DISTAL RIGHT RADIUS ORIF performed by Dr. Lino. PT / OT. HYPERTENSION Continue metoprolol. DYSLIPIDEMIA Continue atorvastatin and gemfibrozil. VTE PROPHYLAXIS Receiving rivaroxaban. SCD's. Ambulate. DISPOSITION Anticipate need for skilled care or inpatient rehab. Internal Medicine follow-up with Dr. Mcdonald. . Current Inpatient Medications: Current Inpatient Medications Medications (Trade) Dose Ordered Sig/Lacey Route Start Time Stop Time Status Last Admin Dose Admin Acetaminophen (Tylenol Tab) 650 mg Q4H PRN PO 11/14/17 12:30 12/14/17 12:29 11/14/17 21:32 650 MG Al Hydrox/Mg Hydrox/Simethicone (Maalox Max Susp) 15 ml Q4H PRN PO 11/14/17 12:30 12/14/17 12:29 Polyethylene (Miralax Powder Packet) 17 gm DAILY PRN PO 11/14/17 12:30 12/14/17 12:29 Ondansetron HCl (Zofran Inj) 4 mg Q6H PRN IV 11/14/17 12:30 12/14/17 12:29 Albuterol (Ventolin Hfa Inhaler) 2 puffs Q4H PRN INH 11/14/17 12:30 12/14/17 12:29 Atorvastatin Calcium (Lipitor Tab) 20 mg HS PO 11/14/17 21:00 12/14/17 20:59 11/15/17 21:10 20 MG Gabapentin (Neurontin Cap) 400 mg TID PO 11/14/17 14:00 12/14/17 13:59 11/16/17 13:19 400 MG Gemfibrozil (Lopid Tab) 600 mg BID PO 11/14/17 21:00 12/14/17 20:59 11/16/17 09:20 600 MG Metoprolol Tartrate (Lopressor Tab) 12.5 mg BID PO 11/14/17 21:00 12/14/17 20:59 11/16/17 09:20 12.5 MG Multivitamins (Multivitamin Tab) 1 tab DAILY PO 11/15/17 09:00 12/15/17 08:59 11/16/17 09:20 1 TAB Ascorbic Acid (Vitamin C Tab) 500 mg DAILY PO 11/15/17 09:00 12/15/17 08:59 11/16/17 09:21 500 MG Sodium Chloride 1,000 ml @ 100 mls/hr Q10H IV 11/14/17 14:30 12/14/17 14:29 11/16/17 11:12 100 MLS/HR Hydromorphone HCl (Dilaudid Inj) 1 mg Q3HWA PRN IV 11/15/17 00:15 11/28/17 12:29 11/15/17 04:42 1 MG Tramadol HCl (Ultram Tab) not relieved by tylenol @ Q6H PRN PO 11/15/17 00:15 12/15/17 00:14 11/15/17 22:22 50 MG Oxycodone/ Acetaminophen (Percocet 5-325mg Tab) 1 tab Q6H PRN PO 11/15/17 00:15 11/29/17 00:14 11/16/17 13:19 1 TAB Rivaroxaban (Xarelto Tab) 10 mg DAILY PO 11/16/17 09:00 12/16/17 08:59 11/16/17 09:21 10 MG
[2017-11-16 20:59] VITALS: BP 97/64
[2017-11-16] MEDS: ATORVASTATIN 20 MG TAB PO SCH (21:00)
[2017-11-16 23:00] VITALS: BP 83/51; PULSE 105; TEMP 36.6; O2SAT 95
[2017-11-17 03:45] VITALS: BP 127/79; PULSE 97; TEMP 36.5; O2SAT 92
[2017-11-17] MEDS: OXYCODONE/ACETAMINOPHEN 5-325 TAB PO PRN ×2 (03:51→19:52)
[2017-11-17] MEDS: SODIUM CHLORIDE 0.9% 1000ML 1,000 ML IV SCH (06:39)
[2017-11-17 08:35] VITALS: BP 100/64; PULSE 107; TEMP 36.3; O2SAT 92
[2017-11-17] MEDS: GABAPENTIN 400 MG CAP PO SCH ×3 (08:58→21:05)
[2017-11-17] MEDS: GEMFIBROZIL 600 MG TAB PO SCH ×2 (08:59→21:04)
[2017-11-17] MEDS: METOPROLOL TARTRATE 25 MG TAB PO SCH ×2 (08:59→21:09)
[2017-11-17] MEDS: RIVAROXABAN 10 MG TAB PO SCH (08:59)
[2017-11-17] MEDS: MULTIVITAMIN TAB PO SCH (08:59)
[2017-11-17] MEDS: ASCORBIC ACID 500 MG TAB PO SCH (08:59)
--- NOTE | 2017-11-17 11:33 | Orthopedic Progress Note ---
Orthopedic Progress Note Date of Service Nov 17, 2017. Subjective Post OP Day: 2 Reports: feeling well, Denies: chest pain, SOB, nausea / vomiting, light headedness, calf pain Objective calves soft nontender, N/V intact, capillary refill less than 2 sec., dressing C /D/I, A&O x3, toes mobile Right splint CDI, fingers mobile, no complaints of discomfort Date Time Temp Pulse Resp B/P (MAP) Pulse Ox O2 Delivery O2 Flow Rate FiO2 11/17/17 08:35 36.3 107 18 100/64 (76) 92 Room Air 11/17/17 08:00 Room Air 11/17/17 03:45 36.5 97 18 127/79 (95) 92 Room Air 11/16/17 23:50 Nasal Cannula 3.0 11/16/17 23:00 36.6 105 20 83/51 (62) 95 Nasal Cannula 3.0 11/16/17 20:59 97/64 (75) 11/16/17 15:30 Nasal Cannula 2.0 11/16/17 15:28 36.8 111 18 101/63 (76) 96 Nasal Cannula 2.0 11/16/17 12:59 90 Assessment & Plan Assessment: POD 2 s/p ORIF Right Radius Fx; Right TFN Plan: PT/OT Planning for [facility]- orthopedically stable for transfer when cleared medically DVT proph- XARELTO Pain management- Ultram/Perc (1) Right wrist fracture (2) Intertrochanteric fracture of right hip Inhouse Planning Pain Management: Percocet, Ultram, Dilaudid DVT Prophylaxis: TEDs, SCDs, Xarelto Discharge Planning Discharge Planning: rehab hospital
[2017-11-17 16:11] VITALS: BP 92/59; PULSE 100; TEMP 36.4; O2SAT 90
--- NOTE | 2017-11-17 16:35 | Consultant Recommendations ---
Full Time Recommendations Date of Service Nov 17, 2017. Full Time Recommendations MAINTAIN TOE TOUCH WEIGHT BEARING ON THE RIGHT LOWER EXTREMITY REMAIN NON WEIGHT BEARING RIGHT UPPER EXTREMITY WILL REQUIRE PLATFORM WALKER WHEN AMBULATORY DELANEY HOSE 20 HRS PER DAY X 4 WEEKS XARELTO 10MG DAILY X 4 WEEKS RETURN IN 2 WEEKS FOR POST OP EVAL AND SUTURE REMOVAL- [phone]
--- NOTE | 2017-11-17 19:12 | Progress Note ---
Medicine Progress Note Date & Time of Visit: Nov 17, 2017 at 19:08. Subjective seen resting in bed, comfortable states his hip still feels sore but tolerable denies chest pain, dyspnea, dizziness no other symptoms Objective Last 8 Hrs Date Time Temp Pulse Resp B/P (MAP) Pulse Ox O2 Delivery O2 Flow Rate FiO2 11/17/17 16:11 36.4 100 18 92/59 (70) 90 Nasal Cannula 2.0 11/17/17 16:00 Room Air Physical Exam: General- oriented x 2, not in distress, speaks in sentences Head- atraumatic Eyes- anicteric Neck- no JVD Lungs- clear breath sounds bilaterally Heart- regular rhythm; no murmur, normal rate Abdomen- normal bowel sounds, soft, nontender Extremities- no pretibial edema, no calf tenderness; peripheral pulses intact Neuro- alert, oriented x 3; no gross focal deficits Skin- warm & dry Assessment & Plan FRACTURE RIGHT HIP Mechanical fall at home with intertrochanteric fracture of right hip. Intramedullary nailing performed by Dr. Lino. Vitamin D level = 34. PT / OT. -- continue pain management anticipate d/c to [facility] tomorrow FRACTURE DISTAL RIGHT RADIUS ORIF performed by Dr. Lino. PT / OT. HYPERTENSION stable Continue metoprolol. DYSLIPIDEMIA Continue atorvastatin and gemfibrozil. VTE PROPHYLAXIS Receiving rivaroxaban. SCD's. Ambulate. DISPOSITION Anticipate d/c to HS tomorrow Internal Medicine follow-up with Dr. Mcdonald. Current Inpatient Medications: Current Inpatient Medications Medications (Trade) Dose Ordered Sig/Lacey Route Start Time Stop Time Status Last Admin Dose Admin Acetaminophen (Tylenol Tab) 650 mg Q4H PRN PO 11/14/17 12:30 12/14/17 12:29 11/14/17 21:32 650 MG Al Hydrox/Mg Hydrox/Simethicone (Maalox Max Susp) 15 ml Q4H PRN PO 11/14/17 12:30 12/14/17 12:29 Polyethylene (Miralax Powder Packet) 17 gm DAILY PRN PO 11/14/17 12:30 12/14/17 12:29 Ondansetron HCl (Zofran Inj) 4 mg Q6H PRN IV 11/14/17 12:30 12/14/17 12:29 Albuterol (Ventolin Hfa Inhaler) 2 puffs Q4H PRN INH 11/14/17 12:30 12/14/17 12:29 Atorvastatin Calcium (Lipitor Tab) 20 mg HS PO 11/14/17 21:00 12/14/17 20:59 11/16/17 21:00 20 MG Gabapentin (Neurontin Cap) 400 mg TID PO 11/14/17 14:00 12/14/17 13:59 11/17/17 14:13 400 MG Gemfibrozil (Lopid Tab) 600 mg BID PO 11/14/17 21:00 12/14/17 20:59 11/17/17 08:59 600 MG Metoprolol Tartrate (Lopressor Tab) 12.5 mg BID PO 11/14/17 21:00 12/14/17 20:59 11/17/17 08:59 12.5 MG Multivitamins (Multivitamin Tab) 1 tab DAILY PO 11/15/17 09:00 12/15/17 08:59 11/17/17 08:59 1 TAB Ascorbic Acid (Vitamin C Tab) 500 mg DAILY PO 11/15/17 09:00 12/15/17 08:59 11/17/17 08:59 500 MG Sodium Chloride 1,000 ml @ 100 mls/hr Q10H IV 11/14/17 14:30 12/14/17 14:29 11/17/17 06:39 100 MLS/HR Hydromorphone HCl (Dilaudid Inj) 1 mg Q3HWA PRN IV 11/15/17 00:15 11/28/17 12:29 11/15/17 04:42 1 MG Tramadol HCl (Ultram Tab) not relieved by tylenol @ Q6H PRN PO 11/15/17 00:15 12/15/17 00:14 11/15/17 22:22 50 MG Oxycodone/ Acetaminophen (Percocet 5-325mg Tab) 1 tab Q6H PRN PO 11/15/17 00:15 11/29/17 00:14 11/17/17 03:51 1 TAB Rivaroxaban (Xarelto Tab) 10 mg DAILY PO 11/16/17 09:00 12/16/17 08:59 11/17/17 08:59 10 MG
[2017-11-17] MEDS: ATORVASTATIN 20 MG TAB PO SCH (21:04)
[2017-11-17 21:08] VITALS: BP 101/63; PULSE 108
[2017-11-17 23:33] VITALS: BP 109/70; PULSE 89; TEMP 36.6; O2SAT 93
[2017-11-18] VITALS (7 sets, daily range): BP systolic 107–138; BP diastolic 55–78; PULSE 84–98; TEMP 36.5–37.1; O2SAT 88–94
--- NOTE | 2017-11-18 08:45 | Orthopedic Progress Note ---
Orthopedic Progress Note Date of Service Nov 18, 2017. Subjective Post OP Day: 3 Reports: feeling well, Denies: complaints Objective calves soft nontender, N/V intact, splint C/D/I (RIGHT WRIST), dressing C/D/I ( RIGHT HIP), A&O x3, toes mobile Date Time Temp Pulse Resp B/P (MAP) Pulse Ox O2 Delivery O2 Flow Rate FiO2 11/18/17 07:25 36.5 84 18 127/68 (87) 94 Room Air 11/17/17 23:33 36.6 89 18 109/70 (83) 93 Nasal Cannula 2.0 11/17/17 21:08 108 101/63 (76) 11/17/17 19:41 Nasal Cannula 3.0 11/17/17 16:11 36.4 100 18 92/59 (70) 90 Nasal Cannula 2.0 11/17/17 16:00 Room Air Assessment & Plan Assessment: POD 3 s/p ORIF Right Radius Fx; Right TFN Plan: PT/OT Planning for [facility]- orthopedically stable for transfer when cleared medically DVT proph- XARELTO Pain management- Ultram/Percocet ORTHO WILL SIGN OFF FOR NOW. PLEASE CALL WITH ANY QUESTIONS. DC RECOMMENDATIONS PLACED IN EMR (1) Right wrist fracture (2) Intertrochanteric fracture of right hip Inhouse Planning Pain Management: Percocet, Ultram, Dilaudid DVT Prophylaxis: TEDs, SCDs, Xarelto Discharge Planning Discharge Planning: rehab hospital
[2017-11-18] MEDS: GEMFIBROZIL 600 MG TAB PO SCH ×2 (09:02→20:59)
[2017-11-18] MEDS: GABAPENTIN 400 MG CAP PO SCH ×3 (09:03→20:59)
[2017-11-18] MEDS: MULTIVITAMIN TAB PO SCH (09:03)
[2017-11-18] MEDS: METOPROLOL TARTRATE 25 MG TAB PO SCH ×2 (09:03→20:59)
[2017-11-18] MEDS: ASCORBIC ACID 500 MG TAB PO SCH (09:03)
[2017-11-18] MEDS: RIVAROXABAN 10 MG TAB PO SCH (09:04)
--- NOTE | 2017-11-18 14:14 | Progress Note ---
Medicine Progress Note Date & Time of Visit: Nov 18, 2017 at 14:07. Subjective patient seen resting in bed, comfortable states he feels fine overall pain well controlled denies dyspnea, cough, chest pain denies other symptoms states he is ready for discharge when approved to go to Objective Last 8 Hrs Date Time Temp Pulse Resp B/P (MAP) Pulse Ox O2 Delivery O2 Flow Rate FiO2 11/18/17 07:48 92 Nasal Cannula 2.0 11/18/17 07:45 Nasal Cannula 2.0 11/18/17 07:45 88 Room Air 11/18/17 07:25 36.5 84 18 127/68 (87) 94 Room Air Physical Exam: General- oriented x 2, not in distress, speaks in sentences Neck- no JVD Lungs- clear breath sounds bilaterally, no rales/wheezes Heart- regular rhythm; no murmur, normal rate Abdomen- normal bowel sounds, soft, nontender Extremities- no pretibial edema, no calf tenderness; peripheral pulses intact right hand: can move all fingers, cast on the wrist in place right hip: dressing in place, mild edema on the site, no tenderness Neuro- alert, oriented x 3; no gross focal deficits Skin- warm & dry Laboratory Results: Last 24 Hours Test 11/18/17 13:52 Assessment & Plan FRACTURE RIGHT HIP Mechanical fall at home with intertrochanteric fracture of right hip. Intramedullary nailing performed by Dr. Lino. Vitamin D level = 34. -- cleared for discharge by Ortho Xarelto x 4 weeks for DVT prophylaxis continue PT/OT, Pain Mgt in [facility] -- discharge instructions by Ortho: MAINTAIN TOE TOUCH WEIGHT BEARING ON THE RIGHT LOWER EXTREMITY REMAIN NON WEIGHT BEARING RIGHT UPPER EXTREMITY WILL REQUIRE PLATFORM WALKER WHEN AMBULATORY DELANEY HOSE 20 HRS PER DAY X 4 WEEKS XARELTO 10MG DAILY X 4 WEEKS RETURN IN 2 WEEKS FOR POST OP EVAL AND SUTURE REMOVAL- tel. no. [phone] FRACTURE DISTAL RIGHT RADIUS ORIF performed by Dr. Lino. -- management as noted above HYPERTENSION stable Continue metoprolol. hold Aspirin 81mg po daily while on Xarelto DYSLIPIDEMIA Continue atorvastatin and gemfibrozil. NOCTURNAL HYPOXEMIA patient requires 2 liters of 02 via NC while sleeping and while lying supine VTE PROPHYLAXIS Receiving rivaroxaban SCD's. Ambulate. DISPOSITION d/c to [facility] ff up with [facility] in 2 weeks RETURN IN 2 WEEKS FOR POST OP EVAL AND SUTURE REMOVAL- tel. no. [phone] Primary Care Physician follow-up with Dr. Mcdonald. Current Inpatient Medications: Current Inpatient Medications Medications (Trade) Dose Ordered Sig/Lacey Route Start Time Stop Time Status Last Admin Dose Admin Acetaminophen (Tylenol Tab) 650 mg Q4H PRN PO 11/14/17 12:30 12/14/17 12:29 11/14/17 21:32 650 MG Al Hydrox/Mg Hydrox/Simethicone (Maalox Max Susp) 15 ml Q4H PRN PO 11/14/17 12:30 12/14/17 12:29 Polyethylene (Miralax Powder Packet) 17 gm DAILY PRN PO 11/14/17 12:30 12/14/17 12:29 Ondansetron HCl (Zofran Inj) 4 mg Q6H PRN IV 11/14/17 12:30 12/14/17 12:29 Albuterol (Ventolin Hfa Inhaler) 2 puffs Q4H PRN INH 11/14/17 12:30 12/14/17 12:29 Atorvastatin Calcium (Lipitor Tab) 20 mg HS PO 11/14/17 21:00 12/14/17 20:59 11/17/17 21:04 20 MG Gabapentin (Neurontin Cap) 400 mg TID PO 11/14/17 14:00 12/14/17 13:59 11/18/17 13:48 400 MG Gemfibrozil (Lopid Tab) 600 mg BID PO 11/14/17 21:00 12/14/17 20:59 11/18/17 09:02 600 MG Metoprolol Tartrate (Lopressor Tab) 12.5 mg BID PO 11/14/17 21:00 12/14/17 20:59 11/18/17 09:03 12.5 MG Multivitamins (Multivitamin Tab) 1 tab DAILY PO 11/15/17 09:00 12/15/17 08:59 11/18/17 09:03 1 TAB Ascorbic Acid (Vitamin C Tab) 500 mg DAILY PO 11/15/17 09:00 12/15/17 08:59 11/18/17 09:03 500 MG Hydromorphone HCl (Dilaudid Inj) 1 mg Q3HWA PRN IV 11/15/17 00:15 11/28/17 12:29 11/15/17 04:42 1 MG Tramadol HCl (Ultram Tab) not relieved by tylenol @ Q6H PRN PO 11/15/17 00:15 12/15/17 00:14 11/15/17 22:22 50 MG Oxycodone/ Acetaminophen (Percocet 5-325mg Tab) 1 tab Q6H PRN PO 11/15/17 00:15 11/29/17 00:14 11/17/17 19:52 1 TAB Rivaroxaban (Xarelto Tab) 10 mg DAILY PO 11/16/17 09:00 12/16/17 08:59 11/18/17 09:04 10 MG
[2017-11-18 15:26] LABS: HEMATOCRIT 27.7 % (42-52); HEMOGLOBIN 9.3 g/dL (14.0-18.0); MEAN CORPUSCULAR HEMOGLOBIN 33.6 pg (25-34); MEAN CORPUSCULAR HGB CONC 33.6 g/dl (32-36); MEAN PLATELET VOLUME 11.2 fL (7.4-10.4); NUCLEATED RED BLOOD CELL ABS 0.03 K/uL (0-0); PLATELET COUNT 182 K/uL (130-400); RED CELL DISTRIBUTION WIDTH CV 13.4 % (11.5-14.5); RED CELL DISTRIBUTION WIDTH SD 48.1 fL (36.4-46.3); WHITE BLOOD COUNT 10.89 K/uL (4.8-10.8)
[2017-11-18 16:31] LABS: BASO % 0.3 %; BASO ABS # 0.03 K/uL (0-0.2); EOS % 0.3 %; EOS ABS # 0.03 K/uL (0-0.5); IG# 0.08 K/uL (0.00-0.02); LYMPH % 11.5 %; LYMPH ABS # 1.25 K/uL (1.2-3.4); NEUT % 76.2 %
[2017-11-18] MEDS: ATORVASTATIN 20 MG TAB PO SCH (20:59)
[2017-11-19 07:02] VITALS: BP 136/64; PULSE 102; TEMP 37.2; O2SAT 93
[2017-11-19 07:52] LABS: BASO % 0.4 %; BASO ABS # 0.04 K/uL (0-0.2); EOS ABS # 0.09 K/uL (0-0.5); HEMATOCRIT 28.1 % (42-52); HEMOGLOBIN 9.3 g/dL (14.0-18.0); IG# 0.09 K/uL (0.00-0.02); LYMPH % 12.6 %; LYMPH ABS # 1.19 K/uL (1.2-3.4); MEAN CELL VOLUME 100.7 fL (80-100); MEAN CORPUSCULAR HEMOGLOBIN 33.3 pg (25-34); MEAN CORPUSCULAR HGB CONC 33.1 g/dl (32-36); MONO % 11.9 %; MONO ABS # 1.12 K/uL (0.11-0.59); NEUT % 73.1 %; NEUT ABS # 6.92 K/uL (1.4-6.5); NUCLEATED RED BLOOD CELL ABS 0.06 K/uL (0-0); PLATELET COUNT 180 K/uL (130-400); RED CELL DISTRIBUTION WIDTH CV 13.8 % (11.5-14.5); RED CELL DISTRIBUTION WIDTH SD 49.6 fL (36.4-46.3); WHITE BLOOD COUNT 9.45 K/uL (4.8-10.8)
[2017-11-19 08:10] VITALS: O2SAT 93
[2017-11-19 08:21] LABS: CALCIUM 8.6 mg/dl (8.5-10.1); CREATININE 0.91 mg/dl (0.60-1.40); POTASSIUM 4.8 mmol/L (3.5-5.1)
[2017-11-19] MEDS: MULTIVITAMIN TAB PO SCH (09:17)
[2017-11-19] MEDS: ASCORBIC ACID 500 MG TAB PO SCH (09:17)
[2017-11-19] MEDS: RIVAROXABAN 10 MG TAB PO SCH (09:18)
[2017-11-19] MEDS: GABAPENTIN 400 MG CAP PO SCH ×3 (09:18→21:13)
[2017-11-19] MEDS: GEMFIBROZIL 600 MG TAB PO SCH ×2 (09:18→21:13)
[2017-11-19] MEDS: METOPROLOL TARTRATE 25 MG TAB PO SCH ×2 (09:18→21:14)
[2017-11-19 15:45] VITALS: BP 138/76; PULSE 96; TEMP 36.7; O2SAT 96
[2017-11-19] MEDS: ATORVASTATIN 20 MG TAB PO SCH (21:13)
[2017-11-19 22:56] VITALS: BP 152/74; PULSE 93; TEMP 36.7; O2SAT 95
[2017-11-20 06:55] VITALS: BP 134/82; PULSE 100; TEMP 36.4; O2SAT 94
[2017-11-20 07:45] VITALS: O2SAT 94
[2017-11-20] MEDS: OXYCODONE/ACETAMINOPHEN 5-325 TAB PO PRN ×3 (08:10→20:50)
[2017-11-20] MEDS: MULTIVITAMIN TAB PO SCH (09:08)
[2017-11-20] MEDS: GABAPENTIN 400 MG CAP PO SCH ×3 (09:08→20:45)
[2017-11-20] MEDS: GEMFIBROZIL 600 MG TAB PO SCH ×2 (09:08→20:46)
[2017-11-20] MEDS: METOPROLOL TARTRATE 25 MG TAB PO SCH ×2 (09:08→20:46)
[2017-11-20] MEDS: RIVAROXABAN 10 MG TAB PO SCH (09:09)
[2017-11-20] MEDS: ASCORBIC ACID 500 MG TAB PO SCH (09:09)
[2017-11-20] MEDS: TRAMADOL HCL 50 MG TAB PO PRN (09:12)
[2017-11-20 15:17] VITALS: BP 116/75; PULSE 83; TEMP 36.4; O2SAT 94
--- NOTE | 2017-11-20 20:38 | Progress Note ---
Medicine Progress Note Date & Time of Visit: Nov 20, 2017 at 20:35. Subjective delayed entry date of service 11/19/17 seen resting in bed, comfortable pain well controlled denies chest pain, dyspnea, dizziness, nausea no other symptoms Objective Last 8 Hrs Date Time Temp Pulse Resp B/P (MAP) Pulse Ox O2 Delivery O2 Flow Rate FiO2 11/20/17 15:17 36.4 83 17 116/75 (89) 94 Nasal Cannula 2.5 11/20/17 15:15 Nasal Cannula 2.0 Physical Exam: General- oriented x 2, not in distress, speaks in sentences Neck- no JVD Lungs- clear BS BL Heart- regular rhythm; no murmur, normal rate Abdomen- normal bowel sounds, soft, nontender Extremities- no pretibial edema, no calf tenderness; peripheral pulses intact right hand: can move all fingers, cast on the wrist in place right hip: dressing in place, mild edema on the site, no tenderness Neuro- alert, oriented x 3; no gross focal deficits Skin- warm & dry Assessment & Plan FRACTURE RIGHT HIP Mechanical fall at home with intertrochanteric fracture of right hip. Intramedullary nailing performed by Dr. Lino. Vitamin D level = 34. -- cleared for discharge by Ortho Xarelto x 4 weeks for DVT prophylaxis continue PT/OT, Pain Mgt -- awaiting placement peer to peer performed with [facility] , upheld denial family appealing -- discharge instructions by Ortho: MAINTAIN TOE TOUCH WEIGHT BEARING ON THE RIGHT LOWER EXTREMITY REMAIN NON WEIGHT BEARING RIGHT UPPER EXTREMITY WILL REQUIRE PLATFORM WALKER WHEN AMBULATORY DELANEY HOSE 20 HRS PER DAY X 4 WEEKS XARELTO 10MG DAILY X 4 WEEKS RETURN IN 2 WEEKS FOR POST OP EVAL AND SUTURE REMOVAL- tel. no. [phone] FRACTURE DISTAL RIGHT RADIUS ORIF performed by Dr. Lino. -- management as noted above HYPERTENSION stable Continue metoprolol. hold Aspirin 81mg po daily while on Xarelto DYSLIPIDEMIA Continue atorvastatin and gemfibrozil. NOCTURNAL HYPOXEMIA patient requires 2 liters of 02 via NC while sleeping and while lying supine VTE PROPHYLAXIS Receiving rivaroxaban SCD's. Ambulate. DISPOSITION pending ff up with [facility] in 2 weeks RETURN IN 2 WEEKS FOR POST OP EVAL AND SUTURE REMOVAL- tel. no. [phone] Primary Care Physician follow-up with Dr. Mcdonald. Current Inpatient Medications: Current Inpatient Medications Medications (Trade) Dose Ordered Sig/Lacey Route Start Time Stop Time Status Last Admin Dose Admin Acetaminophen (Tylenol Tab) 650 mg Q4H PRN PO 11/14/17 12:30 12/14/17 12:29 11/14/17 21:32 650 MG Al Hydrox/Mg Hydrox/Simethicone (Maalox Max Susp) 15 ml Q4H PRN PO 11/14/17 12:30 12/14/17 12:29 Polyethylene (Miralax Powder Packet) 17 gm DAILY PRN PO 11/14/17 12:30 12/14/17 12:29 Ondansetron HCl (Zofran Inj) 4 mg Q6H PRN IV 11/14/17 12:30 12/14/17 12:29 Albuterol (Ventolin Hfa Inhaler) 2 puffs Q4H PRN INH 11/14/17 12:30 12/14/17 12:29 Atorvastatin Calcium (Lipitor Tab) 20 mg HS PO 11/14/17 21:00 12/14/17 20:59 11/19/17 21:13 20 MG Gabapentin (Neurontin Cap) 400 mg TID PO 11/14/17 14:00 12/14/17 13:59 11/20/17 14:24 400 MG Gemfibrozil (Lopid Tab) 600 mg BID PO 11/14/17 21:00 12/14/17 20:59 11/20/17 09:08 600 MG Metoprolol Tartrate (Lopressor Tab) 12.5 mg BID PO 11/14/17 21:00 12/14/17 20:59 11/20/17 09:08 12.5 MG Multivitamins (Multivitamin Tab) 1 tab DAILY PO 11/15/17 09:00 12/15/17 08:59 11/20/17 09:08 1 TAB Ascorbic Acid (Vitamin C Tab) 500 mg DAILY PO 11/15/17 09:00 12/15/17 08:59 11/20/17 09:09 500 MG Hydromorphone HCl (Dilaudid Inj) 1 mg Q3HWA PRN IV 11/15/17 00:15 11/28/17 12:29 11/15/17 04:42 1 MG Tramadol HCl (Ultram Tab) not relieved by tylenol @ Q6H PRN PO 11/15/17 00:15 12/15/17 00:14 11/20/17 09:12 50 MG Oxycodone/ Acetaminophen (Percocet 5-325mg Tab) 1 tab Q6H PRN PO 11/15/17 00:15 11/29/17 00:14 11/20/17 14:24 1 TAB Rivaroxaban (Xarelto Tab) 10 mg DAILY PO 11/16/17 09:00 12/16/17 08:59 11/20/17 09:09 10 MG
--- NOTE | 2017-11-20 20:39 | Progress Note ---
Medicine Progress Note Date & Time of Visit: Nov 20, 2017 at 20:38. Subjective resting in bed, not in distress frustrated as HS stay was denies denies chest pain, dyspnea, nausea pain under good control per patient denies other symptoms Objective Last 8 Hrs Date Time Temp Pulse Resp B/P (MAP) Pulse Ox O2 Delivery O2 Flow Rate FiO2 11/20/17 15:17 36.4 83 17 116/75 (89) 94 Nasal Cannula 2.5 11/20/17 15:15 Nasal Cannula 2.0 Physical Exam: General- oriented x 2, not in distress, speaks in sentences Neck- no JVD Lungs- clear Breath sounds bl Heart- regular rhythm; no murmur, normal rate Abdomen- normal bowel sounds, soft, nontender Extremities- no pretibial edema, no calf tenderness; peripheral pulses intact right hand: can move all fingers, cast on the wrist in place right hip: dressing in place, mild edema on the site, no tenderness/erythema/ warmth Neuro- alert, oriented x 3; no gross focal deficits Skin- warm & dry Assessment & Plan FRACTURE RIGHT HIP Mechanical fall at home with intertrochanteric fracture of right hip. Intramedullary nailing performed by Dr. Lino. Vitamin D level = 34. -- cleared for discharge by Ortho Xarelto x 4 weeks for DVT prophylaxis continue PT/OT, Pain Mgt -- awaiting placement peer to peer performed with [facility] , upheld denial family appealing, awaiting result -- pain controlled adequately cont PT/OT -- discharge instructions by Ortho: MAINTAIN TOE TOUCH WEIGHT BEARING ON THE RIGHT LOWER EXTREMITY REMAIN NON WEIGHT BEARING RIGHT UPPER EXTREMITY WILL REQUIRE PLATFORM WALKER WHEN AMBULATORY DELANEY HOSE 20 HRS PER DAY X 4 WEEKS XARELTO 10MG DAILY X 4 WEEKS RETURN IN 2 WEEKS FOR POST OP EVAL AND SUTURE REMOVAL- tel. no. [phone] FRACTURE DISTAL RIGHT RADIUS ORIF performed by Dr. Lino. -- management as noted above HYPERTENSION stable Continue metoprolol. hold Aspirin 81mg po daily while on Xarelto DYSLIPIDEMIA Continue atorvastatin and gemfibrozil. NOCTURNAL HYPOXEMIA patient requires 2 liters of 02 via NC while sleeping and while lying supine VTE PROPHYLAXIS Receiving rivaroxaban SCD's. Ambulate. DISPOSITION pending ff up with [facility] in 2 weeks RETURN IN 2 WEEKS FOR POST OP EVAL AND SUTURE REMOVAL- tel. no. [phone] Primary Care Physician follow-up with Dr. Mcdonald. Current Inpatient Medications: Current Inpatient Medications Medications (Trade) Dose Ordered Sig/Lacey Route Start Time Stop Time Status Last Admin Dose Admin Acetaminophen (Tylenol Tab) 650 mg Q4H PRN PO 11/14/17 12:30 12/14/17 12:29 11/14/17 21:32 650 MG Al Hydrox/Mg Hydrox/Simethicone (Maalox Max Susp) 15 ml Q4H PRN PO 11/14/17 12:30 12/14/17 12:29 Polyethylene (Miralax Powder Packet) 17 gm DAILY PRN PO 11/14/17 12:30 12/14/17 12:29 Ondansetron HCl (Zofran Inj) 4 mg Q6H PRN IV 11/14/17 12:30 12/14/17 12:29 Albuterol (Ventolin Hfa Inhaler) 2 puffs Q4H PRN INH 11/14/17 12:30 12/14/17 12:29 Atorvastatin Calcium (Lipitor Tab) 20 mg HS PO 11/14/17 21:00 12/14/17 20:59 11/19/17 21:13 20 MG Gabapentin (Neurontin Cap) 400 mg TID PO 11/14/17 14:00 12/14/17 13:59 11/20/17 14:24 400 MG Gemfibrozil (Lopid Tab) 600 mg BID PO 11/14/17 21:00 12/14/17 20:59 11/20/17 09:08 600 MG Metoprolol Tartrate (Lopressor Tab) 12.5 mg BID PO 11/14/17 21:00 12/14/17 20:59 11/20/17 09:08 12.5 MG Multivitamins (Multivitamin Tab) 1 tab DAILY PO 11/15/17 09:00 12/15/17 08:59 11/20/17 09:08 1 TAB Ascorbic Acid (Vitamin C Tab) 500 mg DAILY PO 11/15/17 09:00 12/15/17 08:59 11/20/17 09:09 500 MG Hydromorphone HCl (Dilaudid Inj) 1 mg Q3HWA PRN IV 11/15/17 00:15 11/28/17 12:29 11/15/17 04:42 1 MG Tramadol HCl (Ultram Tab) not relieved by tylenol @ Q6H PRN PO 11/15/17 00:15 12/15/17 00:14 11/20/17 09:12 50 MG Oxycodone/ Acetaminophen (Percocet 5-325mg Tab) 1 tab Q6H PRN PO 11/15/17 00:15 11/29/17 00:14 11/20/17 14:24 1 TAB Rivaroxaban (Xarelto Tab) 10 mg DAILY PO 11/16/17 09:00 12/16/17 08:59 11/20/17 09:09 10 MG
[2017-11-20] MEDS: ATORVASTATIN 20 MG TAB PO SCH (20:45)
[2017-11-20 23:59] VITALS: BP 126/74; PULSE 92; TEMP 36.5; O2SAT 93
[2017-11-21 06:55] VITALS: BP 123/64; PULSE 89; TEMP 37; O2SAT 95
[2017-11-21 08:00] VITALS: O2SAT 95
[2017-11-21] MEDS: OXYCODONE/ACETAMINOPHEN 5-325 TAB PO PRN (08:41)
[2017-11-21] MEDS: METOPROLOL TARTRATE 25 MG TAB PO SCH ×2 (08:42→21:12)
[2017-11-21] MEDS: MULTIVITAMIN TAB PO SCH (08:42)
[2017-11-21] MEDS: GABAPENTIN 400 MG CAP PO SCH ×3 (08:43→21:12)
[2017-11-21] MEDS: RIVAROXABAN 10 MG TAB PO SCH (08:43)
[2017-11-21] MEDS: GEMFIBROZIL 600 MG TAB PO SCH ×2 (08:43→21:12)
[2017-11-21] MEDS: ASCORBIC ACID 500 MG TAB PO SCH (08:44)
[2017-11-21] MEDS: TRAMADOL HCL 50 MG TAB PO PRN (14:12)
[2017-11-21 15:33] VITALS: BP 134/74; PULSE 95; TEMP 36.7; O2SAT 92
--- NOTE | 2017-11-21 19:04 | Progress Note ---
Medicine Progress Note Date & Time of Visit: Nov 21, 2017 at 19:00. Subjective seen resting in bed comfortable states he feels more tired today, muscles feel weak denies chest pain, dyspnea, palpitations, dizziness, nausea/vomiting no other symptoms Objective Last 8 Hrs Date Time Temp Pulse Resp B/P (MAP) Pulse Ox O2 Delivery O2 Flow Rate FiO2 11/21/17 16:00 Nasal Cannula 2.0 11/21/17 15:33 36.7 95 24 134/74 (94) 92 Nasal Cannula 2.0 Physical Exam: General- oriented x 2, not in distress, speaks in sentences Neck- no JVD Lungs- clear Breath sounds bilaterally, no rales/wheezes Heart- normal rate, regular rhythm; no murmurs Abdomen- normal bowel sounds, soft, nontender Extremities- no pretibial edema, no calf tenderness; peripheral pulses intact right hand: can move all fingers, cast on the wrist in place, no tenderness right hip: dressing in place- no bleeding/dc, mild edema on the site, no tenderness/erythema/warmth Neuro- alert, oriented x 3; no gross focal deficits Skin- warm & dry Assessment & Plan FRACTURE RIGHT HIP Mechanical fall at home with intertrochanteric fracture of right hip. Intramedullary nailing performed by Dr. Lino. Vitamin D level = 34. -- cleared for discharge by Ortho Xarelto x 4 weeks for DVT prophylaxis continue PT/OT, Pain Mgt -- awaiting placement peer to peer performed with [facility] , upheld denial family appealing, awaiting result -- pain controlled adequately cont PT/OT will add Boost TID as patient has poor appetite -- discharge instructions by Ortho: MAINTAIN TOE TOUCH WEIGHT BEARING ON THE RIGHT LOWER EXTREMITY REMAIN NON WEIGHT BEARING RIGHT UPPER EXTREMITY WILL REQUIRE PLATFORM WALKER WHEN AMBULATORY DELANEY HOSE 20 HRS PER DAY X 4 WEEKS XARELTO 10MG DAILY X 4 WEEKS RETURN IN 2 WEEKS FOR POST OP EVAL AND SUTURE REMOVAL- tel. no. [phone] FRACTURE DISTAL RIGHT RADIUS ORIF performed by Dr. Lino. -- management as noted above HYPERTENSION stable Continue metoprolol. hold Aspirin 81mg po daily while on Xarelto DYSLIPIDEMIA Continue atorvastatin and gemfibrozil. NOCTURNAL HYPOXEMIA patient requires 2 liters of 02 via NC while sleeping and while lying supine VTE PROPHYLAXIS Receiving rivaroxaban SCD's. Ambulate. DISPOSITION pending ff up with [facility] in 2 weeks RETURN IN 2 WEEKS FOR POST OP EVAL AND SUTURE REMOVAL- tel. no. [phone] Primary Care Physician follow-up with Dr. Mcdonald. Current Inpatient Medications: Current Inpatient Medications Medications (Trade) Dose Ordered Sig/Lacey Route Start Time Stop Time Status Last Admin Dose Admin Acetaminophen (Tylenol Tab) 650 mg Q4H PRN PO 11/14/17 12:30 12/14/17 12:29 11/14/17 21:32 650 MG Al Hydrox/Mg Hydrox/Simethicone (Maalox Max Susp) 15 ml Q4H PRN PO 11/14/17 12:30 12/14/17 12:29 Polyethylene (Miralax Powder Packet) 17 gm DAILY PRN PO 11/14/17 12:30 12/14/17 12:29 Ondansetron HCl (Zofran Inj) 4 mg Q6H PRN IV 11/14/17 12:30 12/14/17 12:29 Albuterol (Ventolin Hfa Inhaler) 2 puffs Q4H PRN INH 11/14/17 12:30 12/14/17 12:29 Atorvastatin Calcium (Lipitor Tab) 20 mg HS PO 11/14/17 21:00 12/14/17 20:59 11/20/17 20:45 20 MG Gabapentin (Neurontin Cap) 400 mg TID PO 11/14/17 14:00 12/14/17 13:59 11/21/17 14:12 400 MG Gemfibrozil (Lopid Tab) 600 mg BID PO 11/14/17 21:00 12/14/17 20:59 11/21/17 08:43 600 MG Metoprolol Tartrate (Lopressor Tab) 12.5 mg BID PO 11/14/17 21:00 12/14/17 20:59 11/21/17 08:42 12.5 MG Multivitamins (Multivitamin Tab) 1 tab DAILY PO 11/15/17 09:00 12/15/17 08:59 11/21/17 08:42 1 TAB Ascorbic Acid (Vitamin C Tab) 500 mg DAILY PO 11/15/17 09:00 12/15/17 08:59 11/21/17 08:44 500 MG Hydromorphone HCl (Dilaudid Inj) 1 mg Q3HWA PRN IV 11/15/17 00:15 11/28/17 12:29 11/15/17 04:42 1 MG Tramadol HCl (Ultram Tab) not relieved by tylenol @ Q6H PRN PO 11/15/17 00:15 12/15/17 00:14 11/21/17 14:12 50 MG Oxycodone/ Acetaminophen (Percocet 5-325mg Tab) 1 tab Q6H PRN PO 11/15/17 00:15 11/29/17 00:14 11/21/17 08:41 1 TAB Rivaroxaban (Xarelto Tab) 10 mg DAILY PO 11/16/17 09:00 12/16/17 08:59 11/21/17 08:43 10 MG Enteral Nutritional Formula (Boost) 1 can TID PO 11/21/17 21:00 12/21/17 20:59
[2017-11-21] MEDS: ATORVASTATIN 20 MG TAB PO SCH (21:12)
[2017-11-21 21:13] VITALS: BP 133/72; PULSE 92; O2SAT 92
[2017-11-21] MEDS: BOOST VANILLA PO SCH (21:13)
[2017-11-21 23:55] VITALS: BP 122/72; PULSE 87; TEMP 37.1; O2SAT 93
[2017-11-22] MEDS: OXYCODONE/ACETAMINOPHEN 5-325 TAB PO PRN ×3 (00:15→20:55)
[2017-11-22 07:15] VITALS: BP 124/74; PULSE 90; TEMP 36.9; O2SAT 93
[2017-11-22 07:30] VITALS: O2SAT 93
[2017-11-22] MEDS: ASCORBIC ACID 500 MG TAB PO SCH (08:53)
[2017-11-22] MEDS: RIVAROXABAN 10 MG TAB PO SCH (08:53)
[2017-11-22] MEDS: GABAPENTIN 400 MG CAP PO SCH ×3 (08:53→20:51)
[2017-11-22] MEDS: METOPROLOL TARTRATE 25 MG TAB PO SCH ×2 (08:53→20:56)
[2017-11-22] MEDS: GEMFIBROZIL 600 MG TAB PO SCH ×2 (08:53→20:51)
[2017-11-22] MEDS: MULTIVITAMIN TAB PO SCH (08:53)
[2017-11-22] MEDS: BOOST VANILLA PO SCH ×3 (08:57→20:51)
[2017-11-22 12:00] VITALS: BP 132/73; PULSE 62; TEMP 36.2; O2SAT 98
[2017-11-22 15:20] VITALS: BP 108/69; PULSE 90; TEMP 37.2; O2SAT 96
--- NOTE | 2017-11-22 18:30 | Progress Note ---
Medicine Progress Note Date & Time of Visit: Nov 22, 2017 at 18:28. Subjective seen resting in bed, comfortable pain controlled adequately denies chest pain, dyspnea, palpitations, dizziness feels somewhat weak with his muscles no new symptoms Objective Last 8 Hrs Date Time Temp Pulse Resp B/P (MAP) Pulse Ox O2 Delivery O2 Flow Rate FiO2 11/22/17 15:55 Nasal Cannula 2.0 11/22/17 15:20 37.2 90 24 108/69 (82) 96 Nasal Cannula 2.0 Physical Exam: General- oriented x 2, not in distress, speaks in sentences Neck- no JVD Lungs- clear BS bilaterally Heart- normal rate, regular rhythm; no murmurs Abdomen- normal bowel sounds, soft, nontender Extremities- no pretibial edema, no calf tenderness; peripheral pulses intact right hand: can move all fingers, cast on the wrist in place, no tenderness right hip: dressing in place- no bleeding/dc, mild edema on the site, no tenderness/erythema/warmth Neuro- alert, oriented x 3; no gross focal deficits Skin- warm & dry Assessment & Plan FRACTURE RIGHT HIP Mechanical fall at home with intertrochanteric fracture of right hip. Intramedullary nailing performed by Dr. Lino. Vitamin D level = 34. -- cleared for discharge by Ortho Xarelto x 4 weeks for DVT prophylaxis continue PT/OT, Pain Mgt -- awaiting placement peer to peer performed with [facility] , upheld denial family appealing, awaiting result -- pain controlled adequately, stable overall cont PT/OT Boost TID as patient has poor appetite -- discharge instructions by Ortho: MAINTAIN TOE TOUCH WEIGHT BEARING ON THE RIGHT LOWER EXTREMITY REMAIN NON WEIGHT BEARING RIGHT UPPER EXTREMITY WILL REQUIRE PLATFORM WALKER WHEN AMBULATORY DELANEY HOSE 20 HRS PER DAY X 4 WEEKS XARELTO 10MG DAILY X 4 WEEKS RETURN IN 2 WEEKS FOR POST OP EVAL AND SUTURE REMOVAL- tel. no. [phone] FRACTURE DISTAL RIGHT RADIUS ORIF performed by Dr. Lino. -- management as noted above HYPERTENSION stable Continue metoprolol. hold Aspirin 81mg po daily while on Xarelto DYSLIPIDEMIA Continue atorvastatin and gemfibrozil. NOCTURNAL HYPOXEMIA patient requires 2 liters of 02 via NC while sleeping and while lying supine VTE PROPHYLAXIS Receiving rivaroxaban SCD's. Ambulate. DISPOSITION pending ff up with [facility] in 2 weeks RETURN IN 2 WEEKS FOR POST OP EVAL AND SUTURE REMOVAL- tel. no. [phone] Primary Care Physician follow-up with Dr. Mcdonald. Current Inpatient Medications: Current Inpatient Medications Medications (Trade) Dose Ordered Sig/Lacey Route Start Time Stop Time Status Last Admin Dose Admin Acetaminophen (Tylenol Tab) 650 mg Q4H PRN PO 11/14/17 12:30 12/14/17 12:29 11/14/17 21:32 650 MG Al Hydrox/Mg Hydrox/Simethicone (Maalox Max Susp) 15 ml Q4H PRN PO 11/14/17 12:30 12/14/17 12:29 Polyethylene (Miralax Powder Packet) 17 gm DAILY PRN PO 11/14/17 12:30 12/14/17 12:29 Ondansetron HCl (Zofran Inj) 4 mg Q6H PRN IV 11/14/17 12:30 12/14/17 12:29 Albuterol (Ventolin Hfa Inhaler) 2 puffs Q4H PRN INH 11/14/17 12:30 12/14/17 12:29 Atorvastatin Calcium (Lipitor Tab) 20 mg HS PO 11/14/17 21:00 12/14/17 20:59 11/21/17 21:12 20 MG Gabapentin (Neurontin Cap) 400 mg TID PO 11/14/17 14:00 12/14/17 13:59 11/22/17 13:38 400 MG Gemfibrozil (Lopid Tab) 600 mg BID PO 11/14/17 21:00 12/14/17 20:59 11/22/17 08:53 600 MG Metoprolol Tartrate (Lopressor Tab) 12.5 mg BID PO 11/14/17 21:00 12/14/17 20:59 11/22/17 08:53 12.5 MG Multivitamins (Multivitamin Tab) 1 tab DAILY PO 11/15/17 09:00 12/15/17 08:59 11/22/17 08:53 1 TAB Ascorbic Acid (Vitamin C Tab) 500 mg DAILY PO 11/15/17 09:00 12/15/17 08:59 11/22/17 08:53 500 MG Hydromorphone HCl (Dilaudid Inj) 1 mg Q3HWA PRN IV 11/15/17 00:15 11/28/17 12:29 11/15/17 04:42 1 MG Tramadol HCl (Ultram Tab) not relieved by tylenol @ Q6H PRN PO 11/15/17 00:15 12/15/17 00:14 11/21/17 14:12 50 MG Oxycodone/ Acetaminophen (Percocet 5-325mg Tab) 1 tab Q6H PRN PO 11/15/17 00:15 11/29/17 00:14 11/22/17 13:42 1 TAB Rivaroxaban (Xarelto Tab) 10 mg DAILY PO 11/16/17 09:00 12/16/17 08:59 11/22/17 08:53 10 MG Enteral Nutritional Formula (Boost) 1 can TID PO 11/21/17 21:00 12/21/17 20:59 11/22/17 08:57 1 CAN
[2017-11-22 20:50] VITALS: BP 140/84; PULSE 94
[2017-11-22] MEDS: ATORVASTATIN 20 MG TAB PO SCH (20:51)
[2017-11-22 23:15] VITALS: BP 124/77; PULSE 82; TEMP 36.7; O2SAT 96
[2017-11-23 07:18] VITALS: BP 129/68; PULSE 89; TEMP 36.4; O2SAT 97
[2017-11-23] MEDS: RIVAROXABAN 10 MG TAB PO SCH (08:43)
[2017-11-23] MEDS: GEMFIBROZIL 600 MG TAB PO SCH ×2 (08:43→20:31)
[2017-11-23] MEDS: GABAPENTIN 400 MG CAP PO SCH ×3 (08:43→20:31)
[2017-11-23] MEDS: ASCORBIC ACID 500 MG TAB PO SCH (08:43)
[2017-11-23] MEDS: METOPROLOL TARTRATE 25 MG TAB PO SCH ×2 (08:44→20:30)
[2017-11-23] MEDS: MULTIVITAMIN TAB PO SCH (08:44)
[2017-11-23] MEDS: BOOST VANILLA PO SCH ×3 (08:53→20:33)
[2017-11-23] MEDS: OXYCODONE/ACETAMINOPHEN 5-325 TAB PO PRN (08:53)
[2017-11-23] MEDS: LORAZEPAM 0.5 MG TAB PO PRN (08:56)
[2017-11-23] MEDS: TRAMADOL HCL 50 MG TAB PO PRN (11:33)
[2017-11-23 15:35] VITALS: BP 138/76; PULSE 97; TEMP 36.7; O2SAT 93
[2017-11-23 20:30] VITALS: BP 118/78; PULSE 98
[2017-11-23] MEDS: ATORVASTATIN 20 MG TAB PO SCH (20:32)
--- NOTE | 2017-11-23 20:49 | Progress Note ---
Medicine Progress Note Date & Time of Visit: Nov 23, 2017 at 20:47. Subjective resting in bed, comfortable states he feels fine overall pain controlled adequately denies any new symptoms awaiting placement Objective Last 8 Hrs Date Time Temp Pulse Resp B/P (MAP) Pulse Ox O2 Delivery O2 Flow Rate FiO2 11/23/17 20:30 98 118/78 (91) 11/23/17 15:50 Nasal Cannula 2.0 11/23/17 15:35 36.7 97 24 138/76 (96) 93 Nasal Cannula 2.0 Physical Exam: General- oriented x 2, not in distress, speaks in sentences Neck- no JVD Lungs- clear BS bilaterally, no rales Heart- normal rate, regular rhythm; no murmurs Abdomen- normal bowel sounds, soft, nontender Extremities- no pretibial edema, no calf tenderness; peripheral pulses intact right hand: can move all fingers, cast on the wrist in place, no tenderness right hip: dressing in place- no bleeding/dc, mild edema on the site, no tenderness/erythema/warmth Neuro- alert, oriented x 3; no gross focal deficits Skin- warm & dry Assessment & Plan FRACTURE RIGHT HIP Mechanical fall at home with intertrochanteric fracture of right hip. Intramedullary nailing performed by Dr. Lino. Vitamin D level = 34. -- cleared for discharge by Ortho Xarelto x 4 weeks for DVT prophylaxis continue PT/OT, Pain Mgt -- awaiting placement peer to peer performed with [facility] , upheld denial family appealing, denial upheld referral to [facility] -- pain controlled adequately, stable overall cont PT/OT Boost TID as patient has poor appetite -- discharge instructions by Ortho: MAINTAIN TOE TOUCH WEIGHT BEARING ON THE RIGHT LOWER EXTREMITY REMAIN NON WEIGHT BEARING RIGHT UPPER EXTREMITY WILL REQUIRE PLATFORM WALKER WHEN AMBULATORY DELANEY HOSE 20 HRS PER DAY X 4 WEEKS XARELTO 10MG DAILY X 4 WEEKS RETURN IN 2 WEEKS FOR POST OP EVAL AND SUTURE REMOVAL- tel. no. [phone] FRACTURE DISTAL RIGHT RADIUS ORIF performed by Dr. Lino. -- management as noted above HYPERTENSION stable Continue metoprolol. hold Aspirin 81mg po daily while on Xarelto DYSLIPIDEMIA Continue atorvastatin and gemfibrozil. NOCTURNAL HYPOXEMIA patient requires 2 liters of 02 via NC while sleeping and while lying supine VTE PROPHYLAXIS Receiving rivaroxaban SCD's. Ambulate. DISPOSITION pending- awaiting placement ff up with [facility] in 2 weeks RETURN IN 2 WEEKS FOR POST OP EVAL AND SUTURE REMOVAL- tel. no. [phone] Primary Care Physician follow-up with Dr. Mcdonald. Current Inpatient Medications: Current Inpatient Medications Medications (Trade) Dose Ordered Sig/Lacey Route Start Time Stop Time Status Last Admin Dose Admin Acetaminophen (Tylenol Tab) 650 mg Q4H PRN PO 11/14/17 12:30 12/14/17 12:29 11/14/17 21:32 650 MG Al Hydrox/Mg Hydrox/Simethicone (Maalox Max Susp) 15 ml Q4H PRN PO 11/14/17 12:30 12/14/17 12:29 Polyethylene (Miralax Powder Packet) 17 gm DAILY PRN PO 11/14/17 12:30 12/14/17 12:29 Ondansetron HCl (Zofran Inj) 4 mg Q6H PRN IV 11/14/17 12:30 12/14/17 12:29 Albuterol (Ventolin Hfa Inhaler) 2 puffs Q4H PRN INH 11/14/17 12:30 12/14/17 12:29 Atorvastatin Calcium (Lipitor Tab) 20 mg HS PO 11/14/17 21:00 12/14/17 20:59 11/23/17 20:32 20 MG Gabapentin (Neurontin Cap) 400 mg TID PO 11/14/17 14:00 12/14/17 13:59 11/23/17 20:31 400 MG Gemfibrozil (Lopid Tab) 600 mg BID PO 11/14/17 21:00 12/14/17 20:59 11/23/17 20:31 600 MG Metoprolol Tartrate (Lopressor Tab) 12.5 mg BID PO 11/14/17 21:00 12/14/17 20:59 11/23/17 20:30 12.5 MG Multivitamins (Multivitamin Tab) 1 tab DAILY PO 11/15/17 09:00 12/15/17 08:59 11/23/17 08:44 1 TAB Ascorbic Acid (Vitamin C Tab) 500 mg DAILY PO 11/15/17 09:00 12/15/17 08:59 11/23/17 08:43 500 MG Hydromorphone HCl (Dilaudid Inj) 1 mg Q3HWA PRN IV 11/15/17 00:15 11/28/17 12:29 11/15/17 04:42 1 MG Tramadol HCl (Ultram Tab) not relieved by tylenol @ Q6H PRN PO 11/15/17 00:15 12/15/17 00:14 11/23/17 11:33 50 MG Oxycodone/ Acetaminophen (Percocet 5-325mg Tab) 1 tab Q6H PRN PO 11/15/17 00:15 11/29/17 00:14 11/23/17 08:53 1 TAB Rivaroxaban (Xarelto Tab) 10 mg DAILY PO 11/16/17 09:00 12/16/17 08:59 11/23/17 08:43 10 MG Enteral Nutritional Formula (Boost) 1 can TID PO 11/21/17 21:00 12/21/17 20:59 11/23/17 20:33 1 CAN Lorazepam (Ativan Tab) 0.5 mg DAILY PRN PO 11/23/17 09:00 12/23/17 08:59 11/23/17 08:56 0.5 MG
[2017-11-23 23:09] VITALS: BP 133/78; PULSE 96; TEMP 36.8; O2SAT 92
[2017-11-24] MEDS: OXYCODONE/ACETAMINOPHEN 5-325 TAB PO PRN ×2 (03:56→14:18)
[2017-11-24 07:40] VITALS: BP 143/85; PULSE 89; TEMP 36.8; O2SAT 96
[2017-11-24] MEDS: BOOST VANILLA PO SCH ×3 (09:00→21:25)
[2017-11-24] MEDS: ASCORBIC ACID 500 MG TAB PO SCH (09:01)
[2017-11-24] MEDS: MULTIVITAMIN TAB PO SCH (09:01)
[2017-11-24] MEDS: GABAPENTIN 400 MG CAP PO SCH ×3 (09:01→21:20)
[2017-11-24] MEDS: GEMFIBROZIL 600 MG TAB PO SCH ×2 (09:01→21:20)
[2017-11-24] MEDS: RIVAROXABAN 10 MG TAB PO SCH (09:01)
[2017-11-24] MEDS: METOPROLOL TARTRATE 25 MG TAB PO SCH ×2 (09:01→21:21)
[2017-11-24] MEDS: TRAMADOL HCL 50 MG TAB PO PRN (09:06)
[2017-11-24] MEDS: LORAZEPAM 0.5 MG TAB PO PRN (09:06)
[2017-11-24 15:49] VITALS: BP 131/78; PULSE 91; TEMP 36.4; O2SAT 93
[2017-11-24 16:15] VITALS: O2SAT 93
--- NOTE | 2017-11-24 17:31 | Progress Note ---
Medicine Progress Note Date & Time of Visit: Nov 24, 2017 at 14:20. Subjective Pt was seen and examined Lying in bed with no distress with son and daughter at bedside Pt said that he starting to feel better Denies any chest pain, palpitation, dizziness and SOB Objective Last 8 Hrs Date Time Temp Pulse Resp B/P (MAP) Pulse Ox O2 Delivery O2 Flow Rate FiO2 11/24/17 15:49 36.4 91 18 131/78 (95) 93 Nasal Cannula 2.0 Physical Exam: General- No acute distress Head- atraumatic Eyes- PERRL, EOMI ENT- oropharynx clear Neck- supple, no JVD Lungs- No wheezing Heart- regular rhythm Abdomen- normal bowel sounds, soft Extremities- no calf tenderness, splint in Right wrist Neuro- alert, oriented, PERRL, EOMI Skin- warm & dry Assessment & Plan FRACTURE RIGHT HIP S/P mechanical fall with intertrochanteric fracture of right hip. Intramedullary nailing performed on 11/15/[address] Lino. On Xarelto x 4 weeks for DVT prophylaxis Ok from ortho standpoint to discharge to rehab Waiting for placement to rehab Fall precaution -- discharge instructions by Ortho: MAINTAIN TOE TOUCH WEIGHT BEARING ON THE RIGHT LOWER EXTREMITY REMAIN NON WEIGHT BEARING RIGHT UPPER EXTREMITY WILL REQUIRE PLATFORM WALKER WHEN AMBULATORY DELANEY HOSE 20 HRS PER DAY X 4 WEEKS XARELTO 10MG DAILY X 4 WEEKS RETURN IN 2 WEEKS FOR POST OP EVAL AND SUTURE REMOVAL- tel. no. [phone] FRACTURE DISTAL RIGHT RADIUS ORIF performed on 11/15/[address] Lino. Management as noted above HYPERTENSION stable Continue metoprolol. hold Aspirin 81mg po daily while on Xarelto to decrease the risk of bleeding DYSLIPIDEMIA Continue atorvastatin and gemfibrozil. NOCTURNAL HYPOXEMIA On 2 liters of 02 via NC while sleeping and while lying supine VTE PROPHYLAXIS Receiving rivaroxaban SCD's. CODE STATUS FULL CODE DISPOSITION Waiting for placement to rehab FOLLOW UP WITH [facility] IN 2 WEEKS FOR POST OP EVAL AND SUTURE REMOVAL, APRIL CALL TO MAKE THE APPT [phone] FOLLOW UP WITH YOUR PCP DR. REYES ONCE DISCHARGE FROM REHAB Consultants: ORTHO Current Inpatient Medications: Current Inpatient Medications Medications (Trade) Dose Ordered Sig/Lacey Route Start Time Stop Time Status Last Admin Dose Admin Acetaminophen (Tylenol Tab) 650 mg Q4H PRN PO 11/14/17 12:30 2/19/18 12:29 11/14/17 21:32 650 MG Al Hydrox/Mg Hydrox/Simethicone (Maalox Max Susp) 15 ml Q4H PRN PO 11/14/17 12:30 12/14/17 12:29 Polyethylene (Miralax Powder Packet) 17 gm DAILY PRN PO 11/14/17 12:30 12/14/17 12:29 Ondansetron HCl (Zofran Inj) 4 mg Q6H PRN IV 11/14/17 12:30 12/14/17 12:29 Albuterol (Ventolin Hfa Inhaler) 2 puffs Q4H PRN INH 11/14/17 12:30 12/14/17 12:29 Atorvastatin Calcium (Lipitor Tab) 20 mg HS PO 11/14/17 21:00 12/14/17 20:59 11/23/17 20:32 20 MG Gabapentin (Neurontin Cap) 400 mg TID PO 11/14/17 14:00 12/14/17 13:59 11/24/17 14:16 400 MG Gemfibrozil (Lopid Tab) 600 mg BID PO 11/14/17 21:00 12/14/17 20:59 11/24/17 09:01 600 MG Metoprolol Tartrate (Lopressor Tab) 12.5 mg BID PO 11/14/17 21:00 12/14/17 20:59 11/24/17 09:01 12.5 MG Multivitamins (Multivitamin Tab) 1 tab DAILY PO 11/15/17 09:00 12/15/17 08:59 11/24/17 09:01 1 TAB Ascorbic Acid (Vitamin C Tab) 500 mg DAILY PO 11/15/17 09:00 12/15/17 08:59 11/24/17 09:01 500 MG Hydromorphone HCl (Dilaudid Inj) 1 mg Q3HWA PRN IV 11/15/17 00:15 11/28/17 12:29 11/15/17 04:42 1 MG Tramadol HCl (Ultram Tab) not relieved by tylenol @ Q6H PRN PO 11/15/17 00:15 12/15/17 00:14 11/24/17 09:06 50 MG Oxycodone/ Acetaminophen (Percocet 5-325mg Tab) 1 tab Q6H PRN PO 11/15/17 00:15 11/29/17 00:14 11/24/17 14:18 1 TAB Rivaroxaban (Xarelto Tab) 10 mg DAILY PO 11/16/17 09:00 12/16/17 08:59 11/24/17 09:01 10 MG Enteral Nutritional Formula (Boost) 1 can TID PO 11/21/17 21:00 12/21/17 20:59 11/24/17 14:18 1 CAN Lorazepam (Ativan Tab) 0.5 mg DAILY PRN PO 11/23/17 09:00 12/23/17 08:59 11/24/17 09:06 0.5 MG
[2017-11-24 21:18] VITALS: BP 114/69; PULSE 91
[2017-11-24] MEDS: ATORVASTATIN 20 MG TAB PO SCH (21:20)
[2017-11-24 23:00] VITALS: BP 144/74; PULSE 90; TEMP 36.6; O2SAT 93
[2017-11-25] VITALS (7 sets, daily range): BP systolic 108–153; BP diastolic 59–96; PULSE 65–96; TEMP 36.6–37; O2SAT 81–94
[2017-11-25] MEDS: BOOST VANILLA PO SCH ×3 (09:00→20:08)
[2017-11-25] MEDS: RIVAROXABAN 10 MG TAB PO SCH (10:01)
[2017-11-25] MEDS: ASCORBIC ACID 500 MG TAB PO SCH (10:01)
[2017-11-25] MEDS: GABAPENTIN 400 MG CAP PO SCH ×3 (10:01→20:12)
[2017-11-25] MEDS: MULTIVITAMIN TAB PO SCH (10:01)
[2017-11-25] MEDS: METOPROLOL TARTRATE 25 MG TAB PO SCH ×2 (10:02→20:13)
[2017-11-25] MEDS: GEMFIBROZIL 600 MG TAB PO SCH ×2 (10:02→20:14)
[2017-11-25] MEDS: LORAZEPAM 0.5 MG TAB PO PRN (10:05)
[2017-11-25] MEDS: OXYCODONE/ACETAMINOPHEN 5-325 TAB PO PRN (10:05)
[2017-11-25] MEDS: TRAMADOL HCL 50 MG TAB PO PRN (14:03)
--- NOTE | 2017-11-25 19:47 | Progress Note ---
Medicine Progress Note Date & Time of Visit: Nov 25, 2017 at 13:43. Subjective Pt was seen and examined Lying in bed with no distress Denies any new symptoms waiting for placement to rehab Denies any chest pain, palpitation and SOB Objective Last 8 Hrs Date Time Temp Pulse Resp B/P (MAP) Pulse Ox O2 Delivery O2 Flow Rate FiO2 11/25/17 16:00 Nasal Cannula 2.0 11/25/17 15:23 36.6 94 20 116/74 (88) 92 Nasal Cannula 2.0 11/25/17 14:37 91 Nasal Cannula 2.0 11/25/17 14:37 81 Room Air Physical Exam: General- No acute distress Head- atraumatic Eyes- PERRL, EOMI ENT- oropharynx clear Neck- supple, no JVD Lungs- No wheezing Heart- regular rhythm Abdomen- normal bowel sounds, soft Extremities- no calf tenderness, splint in Right wrist Neuro- alert, oriented, PERRL, EOMI Skin- warm & dry Assessment & Plan FRACTURE RIGHT HIP S/P mechanical fall with intertrochanteric fracture of right hip. Intramedullary nailing performed on 11/15/[address] Lino. On Xarelto x 4 weeks for DVT prophylaxis Ok from ortho standpoint to discharge to rehab Waiting for placement to rehab Fall precaution -- discharge instructions by Ortho: MAINTAIN TOE TOUCH WEIGHT BEARING ON THE RIGHT LOWER EXTREMITY REMAIN NON WEIGHT BEARING RIGHT UPPER EXTREMITY WILL REQUIRE PLATFORM WALKER WHEN AMBULATORY DELANEY HOSE 20 HRS PER DAY X 4 WEEKS XARELTO 10MG DAILY X 4 WEEKS RETURN IN 2 WEEKS FOR POST OP EVAL AND SUTURE REMOVAL- tel. no. [phone] FRACTURE DISTAL RIGHT RADIUS ORIF performed on 11/15/[address] Lino. Management as noted above HYPOXIA Denies any SOB Has been on 2L oxygen Will get a CXR if worsening will get a CT chest to r/o PE HYPERTENSION stable Continue metoprolol. hold Aspirin 81mg po daily while on Xarelto to decrease the risk of bleeding DYSLIPIDEMIA Continue atorvastatin and gemfibrozil. NOCTURNAL HYPOXEMIA On 2 liters of 02 via NC while sleeping and while lying supine VTE PROPHYLAXIS Receiving rivaroxaban SCD's. CODE STATUS FULL CODE DISPOSITION Waiting for placement to rehab FOLLOW UP WITH [facility] IN 2 WEEKS FOR POST OP EVAL AND SUTURE REMOVAL, APRIL CALL TO MAKE THE APPT [phone] FOLLOW UP WITH YOUR PCP DR. REYES ONCE DISCHARGE FROM REHAB Consultants: ORTHO Current Inpatient Medications: Current Inpatient Medications Medications (Trade) Dose Ordered Sig/Lacey Route Start Time Stop Time Status Last Admin Dose Admin Acetaminophen (Tylenol Tab) 650 mg Q4H PRN PO 11/14/17 12:30 12/14/17 12:29 11/14/17 21:32 650 MG Al Hydrox/Mg Hydrox/Simethicone (Maalox Max Susp) 15 ml Q4H PRN PO 11/14/17 12:30 12/14/17 12:29 Polyethylene (Miralax Powder Packet) 17 gm DAILY PRN PO 11/14/17 12:30 12/14/17 12:29 Ondansetron HCl (Zofran Inj) 4 mg Q6H PRN IV 11/14/17 12:30 12/14/17 12:29 Albuterol (Ventolin Hfa Inhaler) 2 puffs Q4H PRN INH 11/14/17 12:30 12/14/17 12:29 Atorvastatin Calcium (Lipitor Tab) 20 mg HS PO 11/14/17 21:00 12/14/17 20:59 11/24/17 21:20 20 MG Gabapentin (Neurontin Cap) 400 mg TID PO 11/14/17 14:00 12/14/17 13:59 11/25/17 13:55 400 MG Gemfibrozil (Lopid Tab) 600 mg BID PO 11/14/17 21:00 12/14/17 20:59 11/25/17 10:02 600 MG Metoprolol Tartrate (Lopressor Tab) 12.5 mg BID PO 11/14/17 21:00 12/14/17 20:59 11/25/17 10:02 12.5 MG Multivitamins (Multivitamin Tab) 1 tab DAILY PO 11/15/17 09:00 12/15/17 08:59 11/25/17 10:01 1 TAB Ascorbic Acid (Vitamin C Tab) 500 mg DAILY PO 11/15/17 09:00 12/15/17 08:59 11/25/17 10:01 500 MG Hydromorphone HCl (Dilaudid Inj) 1 mg Q3HWA PRN IV 11/15/17 00:15 11/28/17 12:29 11/15/17 04:42 1 MG Tramadol HCl (Ultram Tab) not relieved by tylenol @ Q6H PRN PO 11/15/17 00:15 12/15/17 00:14 11/25/17 14:03 50 MG Oxycodone/ Acetaminophen (Percocet 5-325mg Tab) 1 tab Q6H PRN PO 11/15/17 00:15 11/29/17 00:14 11/25/17 10:05 1 TAB Rivaroxaban (Xarelto Tab) 10 mg DAILY PO 11/16/17 09:00 12/16/17 08:59 11/25/17 10:01 10 MG Enteral Nutritional Formula (Boost) 1 can TID PO 11/21/17 21:00 12/21/17 20:59 11/25/17 14:02 1 CAN Lorazepam (Ativan Tab) 0.5 mg DAILY PRN PO 11/23/17 09:00 12/23/17 08:59 11/25/17 10:05 0.5 MG
[2017-11-25] MEDS: ATORVASTATIN 20 MG TAB PO SCH (20:14)
[2017-11-25] MEDS ORDERED: ALBUT/IPRATROP 3MG/0.5MG NEB 3 ML VIAL INH PRN (20:15)
--- NOTE | 2017-11-25 21:13 | DIAGNOSTIC IMAGING REPORT ---
CHEST ONE VIEW PORTABLE HISTORY: Hypoxia. COMPARISON: Chest 11/14/2017. FINDINGS: There are low lung volumes. No pneumothorax. Trace bilateral pleural effusions persist. Bibasilar linear densities are again noted and have slightly improved on the left. The heart is stable in size. No evidence for pulmonary edema. Mild chronic interstitial thickening persists. IMPRESSION: 1. Low lung volumes with bibasilar linear densities. This favors atelectasis. However, a pneumonia could also have a similar appearance. 2. Trace bilateral pleural effusions persist. Electronically signed by: Daniel Valdez M.D. 11/25/2017 9:12 PM Dictated Date/Time: 11/25/2017 9:10 PM
[2017-11-25 21:22] LABS: PTT PATIENT 20.3 SECONDS (21.0-31.0)
[2017-11-25 21:33] LABS: CALCIUM 8.3 mg/dl (8.5-10.1); CREATININE 0.72 mg/dl (0.60-1.40); POTASSIUM 4.4 mmol/L (3.5-5.1)
[2017-11-25] MEDS ORDERED: MAGNESIUM SULFATE 1GM / D5W 1 GM in PREMIXED IN D5W 100 ML IV ONE (22:00)
[2017-11-25 22:58] LABS: BASO % 0.4 %; BASO ABS # 0.04 K/uL (0-0.2); EOS % 3.4 %; EOS ABS # 0.31 K/uL (0-0.5); HEMATOCRIT 33.6 % (42-52); HEMOGLOBIN 10.6 g/dL (14.0-18.0); IG# 0.07 K/uL (0.00-0.02); LYMPH % 12.9 %; LYMPH ABS # 1.19 K/uL (1.2-3.4); MEAN CELL VOLUME 107.3 fL (80-100); MEAN CORPUSCULAR HEMOGLOBIN 33.9 pg (25-34); MEAN CORPUSCULAR HGB CONC 31.5 g/dl (32-36); MEAN PLATELET VOLUME 10.8 fL (7.4-10.4); MONO % 8.6 %; MONO ABS # 0.79 K/uL (0.11-0.59); NEUT % 73.9 %; NEUT ABS # 6.83 K/uL (1.4-6.5); PLATELET COUNT 213 K/uL (130-400); RED CELL DISTRIBUTION WIDTH CV 15.9 % (11.5-14.5); RED CELL DISTRIBUTION WIDTH SD 60.8 fL (36.4-46.3); WHITE BLOOD COUNT 9.23 K/uL (4.8-10.8)
[2017-11-26 07:28] VITALS: BP 120/74; PULSE 87; TEMP 36.9; O2SAT 93
[2017-11-26] MEDS ORDERED: OPTIRAY 320 IV PRN (08:45)
[2017-11-26] MEDS: BOOST VANILLA PO SCH ×2 (09:00→14:00)
[2017-11-26] MEDS: OXYCODONE/ACETAMINOPHEN 5-325 TAB PO PRN (09:22)
[2017-11-26] MEDS: ASCORBIC ACID 500 MG TAB PO SCH (09:23)
[2017-11-26] MEDS: MULTIVITAMIN TAB PO SCH (09:23)
[2017-11-26] MEDS: RIVAROXABAN 10 MG TAB PO SCH (09:23)
[2017-11-26] MEDS: METOPROLOL TARTRATE 25 MG TAB PO SCH (09:23)
[2017-11-26] MEDS: GEMFIBROZIL 600 MG TAB PO SCH (09:23)
[2017-11-26] MEDS: GABAPENTIN 400 MG CAP PO SCH ×2 (09:23→14:13)
[2017-11-26] MEDS: LORAZEPAM 0.5 MG TAB PO PRN (09:25)
--- NOTE | 2017-11-26 10:54 | DIAGNOSTIC IMAGING REPORT ---
CT ANGIOGRAM OF THE CHEST CLINICAL HISTORY: Shortness of breath and hypoxia status post surgery COMPARISON STUDY: Chest x-ray dated 11/25/2017, CT scan dated 10/27/2014 TECHNIQUE: Following the IV administration of 112 mL of Optiray-320, CT angiogram of the thorax was performed from the thoracic inlet to the lung bases utilizing the pulmonary embolus protocol. Images are reviewed in the axial, sagittal, and coronal planes. IV contrast was administered without complication. MIP imaging was performed. A dose lowering technique was utilized adhering to the principles of ALARA. CT DOSE: 710.95 mGy.cm FINDINGS: No pathologically enlarged axillary mediastinal or hilar lymph nodes were visualized. There was no evidence of thoracic aortic dilatation. There are coronary artery calcifications present. The study is moderately limited due to respiratory motion artifact. No central pulmonary emboli are visualized. If there is a high clinical suspicion over the presence of pulmonary embolism, then correlation with serial leg ultrasonography is recommended in follow-up No pleural effusions are visualized. There is scattered small pleural calcifications. There are bibasal atelectatic changes present. IMPRESSION: 1. Technically limited study secondary to respiratory motion artifact. No central pulmonary emboli are visualized. Correlation with serial leg ultrasonography should be considered if there is a strong clinical suspicion over the presence of pulmonary embolism 2. Bibasilar atelectasis Electronically signed by: Yury Mendes M.D. 11/26/2017 10:53 AM Dictated Date/Time: 11/26/2017 10:46 AM
--- NOTE | 2017-11-26 13:24 | Progress Note ---
Medicine Progress Note Date & Time of Visit: Nov 26, 2017 at 13:16. Subjective Pt was seen and examined Lying in bed with no distress with son at bedside Pt said that he feels fine Pt said that whenever he lies down flat, his oxygen sat drops he said that he has been like that in the last few years after he had an injury in his abdomen that caused some problem with his diaphragm Pt denies any chest pain, palpitation,dizziness and SOB Objective Last 8 Hrs Date Time Temp Pulse Resp B/P (MAP) Pulse Ox O2 Delivery O2 Flow Rate FiO2 11/26/17 09:20 Nasal Cannula 1.0 11/26/17 07:28 36.9 87 18 120/74 (89) 93 Nasal Cannula 1.0 Physical Exam: General- No acute distress Head- atraumatic Eyes- PERRL, EOMI ENT- oropharynx clear Neck- supple, no JVD Lungs- No wheezing Heart- regular rhythm Abdomen- normal bowel sounds, soft Extremities- no calf tenderness, Right wrist wrap, able to wiggle all toes and fingers Neuro- alert, oriented, PERRL, EOMI Skin- warm & dry Laboratory Results: Last 24 Hours Test 11/25/17 21:03 11/25/17 22:46 Activated Partial Thromboplast Time 20.3 SECONDS Partial Thromboplastin Ratio 0.8 Arterial Blood pH 7.36 Arterial Blood Partial Pressure CO2 66 mmHg Arterial Blood Partial Pressure O2 59 mm/Hg Arterial Blood HCO3 36 mmol/L Arterial Blood Oxygen Saturation 87.5 % Arterial Blood Base Excess 9.2 mEq/L Arterial Blood Gas Delivery 1 L Darrell Test POS Sodium Level 138 mmol/L Potassium Level 4.4 mmol/L Chloride Level 99 mmol/L Carbon Dioxide Level 36 mmol/L Anion Gap 3.0 mmol/L Blood Urea Nitrogen 25 mg/dl Creatinine 0.72 mg/dl Est Creatinine Clear Calc Drug Dose 131.6 ml/min Estimated GFR () 103.6 Estimated GFR (Non- 89.3 BUN/Creatinine Ratio 34.3 Random Glucose 134 mg/dl Calcium Level 8.3 mg/dl Magnesium Level 1.7 mg/dl Pro-B-Type Natriuretic Peptide 268 pg/ml White Blood Count 9.23 K/uL Red Blood Count 3.13 M/uL Hemoglobin 10.6 g/dL Hematocrit 33.6 % Mean Corpuscular Volume 107.3 fL Mean Corpuscular Hemoglobin 33.9 pg Mean Corpuscular Hemoglobin Concent 31.5 g/dl Platelet Count 213 K/uL Mean Platelet Volume 10.8 fL Neutrophils (%) (Auto) 73.9 % Lymphocytes (%) (Auto) 12.9 % Monocytes (%) (Auto) 8.6 % Eosinophils (%) (Auto) 3.4 % Basophils (%) (Auto) 0.4 % Neutrophils # (Auto) 6.83 K/uL Lymphocytes # (Auto) 1.19 K/uL Monocytes # (Auto) 0.79 K/uL Eosinophils # (Auto) 0.31 K/uL Basophils # (Auto) 0.04 K/uL RDW Standard Deviation 60.8 fL RDW Coefficient of Variation 15.9 % Immature Granulocyte % (Auto) 0.8 % Immature Granulocyte # (Auto) 0.07 K/uL Assessment & Plan FRACTURE RIGHT HIP S/P mechanical fall with intertrochanteric fracture of right hip. Intramedullary nailing performed on 11/15/[address] Lino. On Xarelto x 4 weeks for DVT prophylaxis Ok from ortho standpoint to discharge to rehab Will go to [facility] today for rehab Fall precaution -- discharge instructions by Ortho: MAINTAIN TOE TOUCH WEIGHT BEARING ON THE RIGHT LOWER EXTREMITY REMAIN NON WEIGHT BEARING RIGHT UPPER EXTREMITY WILL REQUIRE PLATFORM WALKER WHEN AMBULATORY DELANEY HOSE 20 HRS PER DAY X 4 WEEKS XARELTO 10MG DAILY X 4 WEEKS RETURN IN 2 WEEKS FOR POST OP EVAL AND SUTURE REMOVAL- tel. no. [phone] FRACTURE DISTAL RIGHT RADIUS ORIF performed on 11/15/[address] Lino. Management as noted above HYPOXIA Denies any SOB Has been on 2L oxygen CTA chest showed no evidence for PE On RA now Stable HYPERTENSION stable Continue metoprolol. hold Aspirin 81mg po daily while on Xarelto to decrease the risk of bleeding DYSLIPIDEMIA Continue atorvastatin and gemfibrozil. NOCTURNAL HYPOXEMIA On 2 liters of 02 via NC while sleeping and while lying supine VTE PROPHYLAXIS Receiving rivaroxaban SCD's. CODE STATUS FULL CODE DISPOSITION Waiting for placement to rehab FOLLOW UP WITH [facility] IN 2 WEEKS FOR POST OP EVAL AND SUTURE REMOVAL, APRIL CALL TO MAKE THE APPT [phone] FOLLOW UP WITH YOUR PCP DR. REYES ONCE DISCHARGE FROM REHAB Consultants: ORTHO Current Inpatient Medications: Current Inpatient Medications Medications (Trade) Dose Ordered Sig/Lacey Route Start Time Stop Time Status Last Admin Dose Admin Acetaminophen (Tylenol Tab) 650 mg Q4H PRN PO 11/14/17 12:30 12/14/17 12:29 11/14/17 21:32 650 MG Al Hydrox/Mg Hydrox/Simethicone (Maalox Max Susp) 15 ml Q4H PRN PO 11/14/17 12:30 12/14/17 12:29 Polyethylene (Miralax Powder Packet) 17 gm DAILY PRN PO 11/14/17 12:30 12/14/17 12:29 Ondansetron HCl (Zofran Inj) 4 mg Q6H PRN IV 11/14/17 12:30 12/14/17 12:29 Albuterol (Ventolin Hfa Inhaler) 2 puffs Q4H PRN INH 11/14/17 12:30 12/14/17 12:29 Atorvastatin Calcium (Lipitor Tab) 20 mg HS PO 11/14/17 21:00 12/14/17 20:59 11/25/17 20:14 20 MG Gabapentin (Neurontin Cap) 400 mg TID PO 11/14/17 14:00 12/14/17 13:59 11/26/17 09:23 400 MG Gemfibrozil (Lopid Tab) 600 mg BID PO 11/14/17 21:00 12/14/17 20:59 11/26/17 09:23 600 MG Metoprolol Tartrate (Lopressor Tab) 12.5 mg BID PO 11/14/17 21:00 12/14/17 20:59 11/26/17 09:23 12.5 MG Multivitamins (Multivitamin Tab) 1 tab DAILY PO 11/15/17 09:00 12/15/17 08:59 11/26/17 09:23 1 TAB Ascorbic Acid (Vitamin C Tab) 500 mg DAILY PO 11/15/17 09:00 12/15/17 08:59 11/26/17 09:23 500 MG Hydromorphone HCl (Dilaudid Inj) 1 mg Q3HWA PRN IV 11/15/17 00:15 11/28/17 12:29 11/15/17 04:42 1 MG Tramadol HCl (Ultram Tab) not relieved by tylenol @ Q6H PRN PO 11/15/17 00:15 12/15/17 00:14 11/25/17 14:03 50 MG Oxycodone/ Acetaminophen (Percocet 5-325mg Tab) 1 tab Q6H PRN PO 11/15/17 00:15 11/29/17 00:14 11/26/17 09:22 1 TAB Rivaroxaban (Xarelto Tab) 10 mg DAILY PO 11/16/17 09:00 12/16/17 08:59 11/26/17 09:23 10 MG Enteral Nutritional Formula (Boost) 1 can TID PO 11/21/17 21:00 12/21/17 20:59 11/25/17 20:08 1 CAN Lorazepam (Ativan Tab) 0.5 mg DAILY PRN PO 11/23/17 09:00 12/23/17 08:59 11/26/17 09:25 0.5 MG Albuterol/ Ipratropium (Duoneb) 3 ml Q2H PRN INH 11/25/17 20:15 12/25/17 20:14 Ioversol (Optiray 320) 125 ml UD PRN IV 11/26/17 08:45 11/30/17 08:44
[2017-11-26] MEDS ORDERED: OXYC-57 PO (13:30)
[2017-11-26] MEDS ORDERED: ACET-1047 PO (13:30)
[2017-11-26] MEDS ORDERED: XRL10 PO (13:30)
[2017-11-26] MEDS ORDERED: Boost PO (13:30)
[2017-11-26] MEDS ORDERED: MRLP17 PO (13:30)
--- NOTE | 2017-11-26 13:42 | Discharge Instructions ---
Discharge Instructions Date of Service Nov 26, 2017. Admission Reason for Admission: Rt Wrist Fracture,Intertrochanteric Fracture R Hip Discharge Discharge Diagnosis / Problem: FRACTURE RIGHT HIP, FRACTURE DISTAL RIGHT RADIUS Discharge Goals Goal(s): Decrease discomfort, Improve function, Increase independence, Improve disease control Activity Recommendations Activity Limitations: resume your previous activity (Follow orthopedic recommnedation) . Instructions / Follow-Up Instructions / Follow-Up Discharge to [facility] Call to schedule follow up appointment with primary care provider Dr. Mcdonald once discharge from rehab Follow up with [facility] in 2 weeks from the day of the surgery for suture removal ( Please call to schedule the appointment ) Starting on Xarelto 10mg daily for 4 weeks for prophylaxis for blood clot Hold aspirin while on Xarelto to decrease the risk of bleeding Follow orthopedic recommendations Fall precaution Continue PT/OT Continue 2 L oxygen at night and on exertion Current Hospital Diet Patient's current hospital diet: Regular Diet Discharge Diet Recommended Diet: Regular Diet Procedures Procedures Performed: Right Hip Trochanteric Nail; Open Reduction Internal Fixation Right Wrist Fracture Pending Studies Studies pending at discharge: no Laboratory Results Hemoglobin A1c Test 11/15/17 06:20 Range/Units Estimated Average Glucose 143 mg/dl Hemoglobin A1c 6.6 H 4.5-5.6 % Lipid Panel Test 11/15/17 06:20 Range/Units Triglycerides Level 139 0-150 mg/dl Cholesterol Level 149 0-200 mg/dl HDL Cholesterol 43 mg/dl Cholesterol/HDL Ratio 3.5 LDL Cholesterol, Calculated 78 mg/dl Medical Emergencies . Who to Call and When: Medical Emergencies: If at any time you feel your situation is an emergency, please call 911 immediately. . Non-Emergent Contact Non-Emergency issues call your: Primary Care Provider, Specialist (orthopedic) Call Non-Emergent contact if: you have a fever, your pain is not controlled, you have any medication questions . . "Provider Documentation" section prepared by Obdulia Lerner. . Insulator Helper Recommendations Insulator Helper Recommendations: MAINTAIN TOE TOUCH WEIGHT BEARING ON THE RIGHT LOWER EXTREMITY REMAIN NON WEIGHT BEARING RIGHT UPPER EXTREMITY WILL REQUIRE PLATFORM WALKER WHEN AMBULATORY DELANEY HOSE 20 HRS PER DAY X 4 WEEKS XARELTO 10MG DAILY X 4 WEEKS RETURN IN 2 WEEKS FOR POST OP EVAL AND SUTURE REMOVAL- [phone] VTE Core Measure Inpt VTE Proph given/why not?: Other Anticoagulation (xarelto), SCD's [place] Drug Monitoring Program Search Results: no issues identified
--- NOTE | 2017-11-26 14:01 | Discharge Summary ---
Discharge Summary Date of Service Nov 26, 2017. Discharge Summary Admission Date: Nov 14, 2017 at 12:25 Discharge Date: Nov 26, 2017 Discharge Disposition: Rehab Principal Diagnosis: FRACTURE RIGHT HIP FRACTURE DISTAL RIGHT RADIUS Secondary Diagnoses/Problems: HYPOXIA HTN DYSLIPIDEMIA Procedures: Right Hip Trochanteric Nail; Open Reduction Internal Fixation Right Wrist Fracture Consultations: ORTHO Medication Reconciliation New Medications: Acetaminophen (Mapap) 325 Mg Tab 650 MG PO Q6 PRN for Pain or Fever for 7 Days, #56 TAB Oxycodone/Acetaminophen 5MG/325MG (Percocet 5MG/325MG) Tab 1 TAB PO Q8H PRN for Pain, #10 TAB Hold for drowsiness and lethargy Polyethylene (Miralax) 17 Gm Pow 17 GM PO DAILY PRN for Constipation for 30 Days Rivaroxaban (Xarelto) 10 Mg Tab 10 MG PO DAILY for 30 Days, #30 TAB [Boost] () 1 CAN LIQD 1 CAN PO TID for 7 Days Continued Medications: Albuterol (Proair Hfa) Aers 2 PUFFS INH Q4H PRN for SOB/Wheezing, #1 2 Refills Ascorbic Acid (Vitamin C) 500 Mg Cap 500 MG PO DAILY Atorvastatin (Lipitor) 40 Mg Tab 20 MG PO HS, TAB Fish Oil ([place]-3) 1 Ea Cap 1 CAP PO DAILY, CAP Gabapentin (Neurontin) 100 Mg Cap 400 MG PO TID, CAP Gemfibrozil (Gemfibrozil) 600 Mg Tab 600 MG PO BID, #180 Metoprolol Tartrate (Lopressor) 25 Mg Tab 12.5 MG PO BID for 30 Days, TAB 2 Refills Multivitamin (Multivitamin) Tab 1 TAB PO DAILY, TAB Discontinued Medications: Aspirin (Aspirin Ec) 81 Mg Tab 81 MG PO DAILY Admission Information HPI (per Admitting provider): CHIEF COMPLAINT: Status post mechanical fall and right wrist fracture. HISTORY OF PRESENT ILLNESS: This 77-year-old male with past medical history significant for hyperlipidemia, hypertension, presents with mechanical fall and right hip and right wrist fracture. The patient lives alone. He has 2 dogs and today morning when he was checking on his dogs he tripped over and fell down on his right side. His son lives close by and helps him. He was brought into the ER and was found to have impacted and comminuted fracture distal radius with intraarticular extension, avulsion fracture ulnar styloid, nondisplaced fracture of the distal scaphoid and intertrochanteric fracture of the right femur. The patient says pain is under control. The patient said he did not pass out. Denies any chest pain or shortness of breath. No cough, no fever, no chills, no runny nose, no sore throat, no difficulty swallowing. No headaches. No blurred visions, no dizziness, no nausea, no vomiting, no abdominal pain. Appetite is good. Normal bowel and bladder movements. No swelling in the legs. The patient says he is active walks daily, son takes him out. He has no trouble climbing steps. Denies any cardiac problems. Denies any pulmonary issues. Currently resting comfortably, hemodynamically stable. Physical Exam (per Admitting): GENERAL: The patient is obese, not in distress. VITAL SIGNS: Temperature 36.9, pulse 77, respirations 17, blood pressure 146/79 , oxygen 94% on 3 liters. HEAD, EYES, EARS, NOSE, AND THROAT: No pallor, no icterus. Pupils equal, round and reactive to light. NECK: No JVD, no neck masses, no carotid bruits. CARDIOVASCULAR: S1, S2 heard, regular rate and rhythm, no murmur, no gallop. RESPIRATORY SYSTEM: Clear to auscultation bilaterally. No wheezing, no crackles. ABDOMEN: Soft, bowel sounds present. Nontender. No distention. CENTRAL NERVOUS SYSTEM: Cranial nerves 2-12 grossly intact. Nonfocal. EXTREMITIES: Right wrist slightly swollen. Right lower extremity is shortened and externally rotated. Hospital Course FRACTURE RIGHT HIP S/P mechanical fall with intertrochanteric fracture of right hip. Intramedullary nailing performed on 11/15/[address] Lino. On Xarelto x 4 weeks for DVT prophylaxis Ok from ortho standpoint to discharge to rehab Will go to [facility] today for rehab Fall precaution -- discharge instructions by Ortho: MAINTAIN TOE TOUCH WEIGHT BEARING ON THE RIGHT LOWER EXTREMITY REMAIN NON WEIGHT BEARING RIGHT UPPER EXTREMITY WILL REQUIRE PLATFORM WALKER WHEN AMBULATORY DELANEY HOSE 20 HRS PER DAY X 4 WEEKS XARELTO 10MG DAILY X 4 WEEKS RETURN IN 2 WEEKS FOR POST OP EVAL AND SUTURE REMOVAL- tel. no. [phone] FRACTURE DISTAL RIGHT RADIUS ORIF performed on 11/15/[address] Lino. Management as noted above HYPOXIA Denies any SOB Has been on 2L oxygen CTA chest showed no evidence for PE On RA now Stable HYPERTENSION stable Continue metoprolol. hold Aspirin 81mg po daily while on Xarelto to decrease the risk of bleeding DYSLIPIDEMIA Continue atorvastatin and gemfibrozil. NOCTURNAL HYPOXEMIA On 2 liters of 02 via NC while sleeping and while lying supine VTE PROPHYLAXIS Receiving rivaroxaban SCD's. CODE STATUS FULL CODE DISPOSITION Waiting for placement to rehab FOLLOW UP WITH [facility] 2 WEEKS FOR POST OP EVAL AND SUTURE REMOVAL, APRIL CALL TO MAKE THE APPT [phone] FOLLOW UP WITH YOUR PCP DR. REYES ONCE DISCHARGE FROM REHAB Total time spent on discharge = 35 minutes This includes examination of the patient, discharge planning, medication reconciliation, and communication with other providers. Discharge Instructions Discharge Instructions Date of Service Nov 26, 2017. Admission Reason for Admission: Rt Wrist Fracture,Intertrochanteric Fracture R Hip Discharge Discharge Diagnosis / Problem: FRACTURE RIGHT HIP, FRACTURE DISTAL RIGHT RADIUS Discharge Goals Goal(s): Decrease discomfort, Improve function, Increase independence, Improve disease control Activity Recommendations Activity Limitations: resume your previous activity (Follow orthopedic recommnedation) . Instructions / Follow-Up Instructions / Follow-Up Call to schedule follow up appointment with primary care provider Dr. Reyes once discharge from rehab Follow up with [facility] in 2 weeks from the day of the surgery for suture removal ( Please call to schedule the appointment ) Starting on Xarelto 10mg daily for 4 weeks for prophylaxis for blood clot Hold aspirin while on Xarelto to decrease the risk of bleeding Follow orthopedic recommendations Fall precaution Continue PT/OT Continue 2 L oxygen at night and on exertion Current Hospital Diet Patient's current hospital diet: Regular Diet Procedures Procedures Performed: Right Hip Trochanteric Nail; Open Reduction Internal Fixation Right Wrist Fracture Pending Studies Studies pending at discharge: no Laboratory Results Hemoglobin A1c Test 11/15/17 06:20 Range/Units Estimated Average Glucose 143 mg/dl Hemoglobin A1c 6.6 H 4.5-5.6 % Lipid Panel Test 11/15/17 06:20 Range/Units Triglycerides Level 139 0-150 mg/dl Cholesterol Level 149 0-200 mg/dl HDL Cholesterol 43 mg/dl Cholesterol/HDL Ratio 3.5 LDL Cholesterol, Calculated 78 mg/dl Medical Emergencies . Who to Call and When: Medical Emergencies: If at any time you feel your situation is an emergency, please call 911 immediately. . Non-Emergent Contact Non-Emergency issues call your: Primary Care Provider, Specialist (orthopedic) Call Non-Emergent contact if: you have a fever, your pain is not controlled, you have any medication questions . . "Provider Documentation" section prepared by Obdulia Lerner. . Cpc Recommendations Cpc Recommendations: MAINTAIN TOE TOUCH WEIGHT BEARING ON THE RIGHT LOWER EXTREMITY REMAIN NON WEIGHT BEARING RIGHT UPPER EXTREMITY WILL REQUIRE PLATFORM WALKER WHEN AMBULATORY DELANEY HOSE 20 HRS PER DAY X 4 WEEKS XARELTO 10MG DAILY X 4 WEEKS RETURN IN 2 WEEKS FOR POST OP EVAL AND SUTURE REMOVAL- [phone] VTE Core Measure Inpt VTE Proph given/why not?: Other Anticoagulation (xarelto), SCD's [place] Drug Monitoring Program Search Results: no issues identified Additional Copies To Maico Reyes D.O. [place], [place]
[2017-11-26] MEDS: TRAMADOL HCL 50 MG TAB PO PRN (14:13)
[2017-11-26 14:30] VITALS: BP 120/74; PULSE 87; TEMP 36.9; O2SAT 93
== END 2017-11-26 14:45 | DRG 480 ==
LOC: EDBD 09:29 → C.EDB 09:33 → C.MSN 12:25 → ENRESERV 12:59
PROVIDERS: ADMIT Hospitalist; ATTEND Internal Medicine
PROC: 2W3CX1Z Immobilization of Right Lower Arm using Splint (ICD-10-PCS; 2017-11-14)
PROC: 0PSH04Z Reposition Right Radius with Internal Fixation Device, Open Approach (ICD-10-PCS; principal; 2017-11-15 07:30)
PROC: 0QS606Z Reposition Right Upper Femur with Intramedullary Internal Fixation Device, Open Approach (ICD-10-PCS; principal; 2017-11-15 07:30)
DX: S59.201A Unspecified physeal fracture of lower end of radius, right arm, initial encounter for closed fracture (principal); S72.141A Displaced intertrochanteric fracture of right femur, initial encounter for closed fracture; S52.611A Displaced fracture of right ulna styloid process, initial encounter for closed fracture; S62.014A Nondisplaced fracture of distal pole of navicular [scaphoid] bone of right wrist, initial encounter for closed fracture; R09.02 Hypoxemia; I10 Essential (primary) hypertension; E78.5 Hyperlipidemia, unspecified; G47.33 Obstructive sleep apnea (adult) (pediatric); W01.0XXA Fall on same level from slipping, tripping and stumbling without subsequent striking against object, initial encounter; Y93.01 Activity, walking, marching and hiking; Y92.019 Unspecified place in single-family (private) house as the place of occurrence of the external cause; Y99.8 Other external cause status; Z87.891 Personal history of nicotine dependence; Z79.899 Other long term (current) drug therapy; Z83.49 Family history of other endocrine, nutritional and metabolic diseases; Z83.3 Family history of diabetes mellitus

== ENCOUNTER 2017-12-20 12:53 | Inpatient (IN) | payer OTHER ==
[~2017-12-20] VITALS: Ht 185.4 cm; Wt 144.0 kg
[~2017-12-20 12:53] MED LIST changes: +ACET-1047 PO; -ALPR-411 PO; +ASCO1CAP3 PO; +Boost PO; -MELO7.5T5 PO; +MRLP17 PO; +MULT-506 PO; +OMEG10007 PO; +XRL10 PO
--- NOTE | 2017-12-20 13:24 | DIAGNOSTIC IMAGING REPORT ---
CHEST ONE VIEW PORTABLE CLINICAL HISTORY: Pneumonia COMPARISON STUDY: November 25, 2017 FINDINGS: The heart is enlarged. There are left middle and lower lung zone airspace opacities consistent with the clinical history of pneumonia. There is a small left pleural effusion. There is mild elevation of the interstitium. An element of mild pulmonary vascular congestion cannot be excluded.[ IMPRESSION: 1. Left mid and lower lung zone airspace opacities, consistent with a clinical history of a pneumonia. Small left pleural effusion. Films subsequent to treatment are recommended in follow-up. Electronically signed by: Yury Mendes M.D. 12/20/2017 1:23 PM Dictated Date/Time: 12/20/2017 1:22 PM
[2017-12-20 13:42] LABS: INFLUENZA B ANTIGEN Neg for Influ B (NEG)
[2017-12-20] MEDS ORDERED: PIPERACILLIN/TAZOBACTAM 4.5 GM/100ML D5W IV STA (13:44)
[2017-12-20 13:47] LABS: BASO % 0.2 %; BASO ABS # 0.02 K/uL (0-0.2); HEMATOCRIT 49.7 % (42-52); HEMOGLOBIN 15.6 g/dL (14.0-18.0); IG# 0.02 K/uL (0.00-0.02); LYMPH % 9.1 %; LYMPH ABS # 0.81 K/uL (1.2-3.4); MEAN CELL VOLUME 111.9 fL (80-100); MEAN CORPUSCULAR HEMOGLOBIN 35.1 pg (25-34); MEAN CORPUSCULAR HGB CONC 31.4 g/dl (32-36); MEAN PLATELET VOLUME 12.3 fL (7.4-10.4); MONO % 10.7 %; MONO ABS # 0.95 K/uL (0.11-0.59); NEUT % 79.8 %; NEUT ABS # 7.06 K/uL (1.4-6.5); PLATELET COUNT 88 K/uL (130-400); WHITE BLOOD COUNT 8.86 K/uL (4.8-10.8)
[2017-12-20 13:52] LABS: ALBUMIN 2.7 gm/dl (3.4-5.0); CALCIUM 8.7 mg/dl (8.5-10.1); CREATININE 0.93 mg/dl (0.60-1.40); POTASSIUM 4.8 mmol/L (3.5-5.1); TOTAL PROTEIN 6.3 gm/dl (6.4-8.2)
--- NOTE | 2017-12-20 14:20 | History and Physical ---
History & Physical Date & Time of Service: Dec 20, 2017 at 14:20 Chief Complaint: Change In Mental Status Primary Care Physician: Maico Mcdonald D.OAna History of Present Illness Source: patient, family (son ), hospital records (ER physician ) This is a 77 yo M with morbid obesity ( BMI > 40 ) , HTN , Hyperlipidemia , gout , peripheral neuropathy , Osteoarthritis of knee Sent form [facility] rehab -as pt was found to be lethargic , difficult to arouse this AM , had fever 100 F , hypoxic /SOB pt been at [facility] following Right hip and wrist fracture S/p fall , had ORIF approx [address] Blanca pt's remains bedbound as he is non wt bearing on rt lower extremity for 6 week post op At the SNF ,pt was experiencing cough , low grade fever , CANALES Cxray on 12/14/17 showed: subsegmental atelectasis vs infiltrate in the left mid lung fiel pt was being treated with PO Levaquin for pneumonia with no improvement of symptom this morning sent to [facility] For worsening of his respiratory symptom associated with altered menta status Family History Diabetes mellitus Social History Smoking Status: Unknown if Ever Smoked Drug Use: none Marital Status: single Housing status: lives with family Occupational Status: retired Immunizations History of Influenza Vaccine: Unknown History of Tetanus Vaccine?: No History of Pneumococcal: Yes History of Hepatitis B Vaccine: No Allergies Coded Allergies: No Known Allergies (Unverified , 12/20/17) Home Medications Scheduled Ascorbic Acid (Vitamin C), 500 MG PO DAILY Atorvastatin (Lipitor), 20 MG PO HS Fish Oil ([place]-3), 1 CAP PO DAILY Gabapentin (Neurontin), 400 MG PO TID Gemfibrozil (Gemfibrozil), 600 MG PO BID Metoprolol Tartrate (Lopressor), 12.5 MG PO BID Multivitamin (Multivitamin), 1 TAB PO DAILY Nutritional Supplements (Boost), 1 CAN PO DAILY Rivaroxaban (Xarelto), 20 MG PO DAILY Scheduled PRN Acetaminophen (Mapap), 650 MG PO Q6 PRN for Pain or Fever Albuterol Sulfate (Proair [place]), 2 PUFFS INH Q4 PRN for SOB/Wheezing Oxycodone/Acetaminophen 5MG/325MG (Percocet 5MG/325MG), 1 TAB PO Q8H PRN for Pain Polyethylene (Miralax), 17 GM PO DAILY PRN for Constipation Review of Systems Constitutional: + fever, + chills, + weakness, + fatigue Respiratory: + cough, + sputum, + wheezing, + shortness of breath, + dyspnea on exertion, + dyspnea at rest Abdomen: + problem reported (poor appetite ) Musculoskeletal: + muscle pain Genitourinary - Male: No hematuria, No dysuria, No urinary frequency, No urinary urgency, No urinary hesitancy, No urinary retention, No urinary incontinence, No penile discharge, No lesions, No impotence, No problem reported Neurologic: + weakness Physical Exam Vital Signs Date Time Temp Pulse Resp B/P (MAP) Pulse Ox O2 Delivery O2 Flow Rate FiO2 12/20/17 14:17 81 25 97/61 87 Nasal Cannula 3.0 12/20/17 13:55 79 18 96/60 95 Nasal Cannula 3.0 12/20/17 13:10 94 Nasal Cannula 5.0 12/20/17 13:05 84 12/20/17 13:00 37.0 84 20 100/52 91 Nasal Cannula 5.0 General Appearance: no apparent distress Head: normocephalic, atraumatic Eyes: PERRL, sclerae normal ENT: normal ENT inspection Respiratory/Chest: + decreased breath sounds, + wheezing Cardiovascular: regular rate, rhythm Abdomen/GI: normal bowel sounds, non tender, soft Extremities/Musculoskelatal: + pedal edema (+1-2 ) Neurologic/Psych: no motor/sensory deficits, alert Diagnostics Laboratory Results Results Past 24 Hours Test 12/20/17 13:00 12/20/17 13:08 12/20/17 14:00 12/20/17 14:16 Range/Units White Blood Count 8.86 4.8-10.8 K/uL Red Blood Count 4.44 4.7-6.1 M/uL Hemoglobin 15.6 14.0-18.0 g/dL Hematocrit 49.7 42-52 % Mean Corpuscular Volume 111.9 80-100 fL Mean Corpuscular Hemoglobin 35.1 25-34 pg Mean Corpuscular Hemoglobin Concent 31.4 32-36 g/dl Platelet Count 88 130-400 K/uL Mean Platelet Volume 12.3 7.4-10.4 fL Neutrophils (%) (Auto) 79.8 % Lymphocytes (%) (Auto) 9.1 % Monocytes (%) (Auto) 10.7 % Eosinophils (%) (Auto) 0.0 % Basophils (%) (Auto) 0.2 % Neutrophils # (Auto) 7.06 1.4-6.5 K/uL Lymphocytes # (Auto) 0.81 1.2-3.4 K/uL Monocytes # (Auto) 0.95 0.11-0.59 K/uL Eosinophils # (Auto) 0.00 0-0.5 K/uL Basophils # (Auto) 0.02 0-0.2 K/uL RDW Standard Deviation 58.0 36.4-46.3 fL RDW Coefficient of Variation 14.0 11.5-14.5 % Immature Granulocyte % (Auto) 0.2 % Immature Granulocyte # (Auto) 0.02 0.00-0.02 K/uL Platelet Estimate DECREASED Macrocytosis PRESENT Sodium Level 137 136-145 mmol/L Potassium Level 4.8 3.5-5.1 mmol/L Chloride Level 94 98-107 mmol/L Carbon Dioxide Level 41 21-32 mmol/L Anion Gap 2.0 3-11 mmol/L Blood Urea Nitrogen 26 7-18 mg/dl Creatinine 0.93 0.60-1.40 mg/dl Est Creatinine Clear Calc Drug Dose 99.6 ml/min Estimated GFR () 90.8 Estimated GFR (Non- 78.4 BUN/Creatinine Ratio 27.8 10-20 Random Glucose 149 70-99 mg/dl Calcium Level 8.7 8.5-10.1 mg/dl Total Bilirubin 0.6 0.2-1 mg/dl Aspartate Amino Transf (AST/SGOT) 53 15-37 U/L Alanine Aminotransferase (ALT/SGPT) 46 12-78 U/L Alkaline Phosphatase 262 45-117 U/L Troponin I 0.052 0-0.045 ng/ml Pro-B-Type Natriuretic Peptide 2422 0-1800 pg/ml Total Protein 6.3 6.4-8.2 gm/dl Albumin 2.7 3.4-5.0 gm/dl Globulin 3.6 2.5-4.0 gm/dl Albumin/Globulin Ratio 0.8 0.9-2 Influenza Type A Antigen Neg for Influ A NEG Influenza Type B Antigen Neg for Influ B NEG Microbiology Results 2/25/18 Blood Culture, Received Pending 12/20/17 Blood Culture, Received Pending Diagnostic Radiology CHEST ONE VIEW PORTABLE CLINICAL HISTORY: Pneumonia COMPARISON STUDY: November 25, 2017 FINDINGS: The heart is enlarged. There are left middle and lower lung zone airspace opacities consistent with the clinical history of pneumonia. There is a small left pleural effusion. There is mild elevation of the interstitium. An element of mild pulmonary vascular congestion cannot be excluded.[ IMPRESSION: 1. Left mid and lower lung zone airspace opacities, consistent with a clinical history of a pneumonia. Small left pleural effusion. Films subsequent to treatment are recommended in follow-up. CT CHEST WITH CONTRAST : IMPRESSION: 1. No pulmonary emboli identified although segmental and subsegmental pulmonary arteries suboptimally assessed due to respiratory motion. 2. Moderate bilateral lower lobe and lingular opacities which favor atelectasis. Pneumonia could appear similar. 3. Mild right middle lobe airspace opacity which favors bronchopneumonia. 4. Moderate cardiomegaly. Moderate coronary artery calcification. BILATERAL LOWER EXT DOPPLER : negative for DVT Impression Assessment and Plan ACUTE ON CHRONIC RESPIRATORY FAILURE due to pneumonia /hx of underlying ABDULLAHI -poorly compliant with Bipap Cxray shows left sided infiltrate no evidence of PE in CT Chest ABG initially Hypercapnia Co2 was 76 improved to 66 after Bipap transitioned to Nasal canula -as pt want not able to tolerate long ordered for empiric Abx with Zosyn and Vancomycin -for HCAP ( recent hospital admission , resident at SNF for eunice ) blood and sputum culture ordered cont Neb tx , respiratory support LEFT SIDED PNEUMONIA Vanco/Zosyn for HCAP Vanco can be D/caroline if MRSA screen negative follow blood and sputum culture Influenza A IgG titer negative CONFUSION /POOR RESPONSIVENESS metabolic encephalopathy due to above mental status improve to approx baseline cont to moniot Neuro checks RECENT FALL WITH FX OF RT WRIST AND RIGHT HIP : lead to Closed fracture of right wrist / Closed displaced intertrochanteric fracture of right femur S/P ORIF by Dr Blanca DYSLIPIDEMIA : on STATIN HX OF ABDULLAHI : Ordered for CPAP at night HTN : on metoprolol PERIPHERAL NEUROPATHY cont gabapentin MORBID OBESITY: BMI > 40 counselling provided for life style modification , limit calorie intake DNR/DNI DVT PROPHYLAXIS moderate to high risk on Xarelto -per Ortho post femur fx DISPOSITION : expected to return back to [place] when medically stable Level of Care Telemetry Resuscitation Status DO NOT RESUSCITATE VTE Prophylaxis VTE Risk Assessment Done? Y/N: Yes Risk Level: Moderate Given or contraindicated: Unfractionated heparin SQ
[2017-12-20] MEDS ORDERED: VANCOMYCIN INJ 1,000 MG in SODIUM CHLORIDE 0.9% 250ML 250 ML IV STA (14:24)
[2017-12-20] MEDS ORDERED: PIPERACILL/TAZOBAC CONSULT ACTIVE PRN (14:30)
[2017-12-20] MEDS ORDERED: VANCOMYCIN CONSULT ACTIVE PRN ×2 (14:30)
[2017-12-20] MEDS ORDERED: NUTR-7 PO (14:33)
[2017-12-20] MEDS ORDERED: ALBU18002 INH (14:33)
[2017-12-20] MEDS ORDERED: POLYETHYLENE (MIRALAX) 17 GM PACK PO PRN ×2 (14:45→15:00)
[2017-12-20] MEDS ORDERED: MAGNESIUM HYDROXIDE SUSP 30 ML UDC PO PRN (14:45)
[2017-12-20] MEDS ORDERED: OPTIRAY 320 IV PRN (14:45)
[2017-12-20] MEDS ORDERED: ALUMINUM/MAGNESIUM/SIMETH (MAALOX MAX) 30 ML UDC PO PRN (14:45)
[2017-12-20] MEDS ORDERED: NITROGLYCERIN 0.4 MG SL PER TAB CHARGE SL PRN (14:45)
[2017-12-20] MEDS ORDERED: ACETAMINOPHEN 325 MG TAB PO PRN ×2 (14:45→15:00)
[2017-12-20 14:50] LABS: INR 1.2 (0.9-1.1)
[2017-12-20] MEDS ORDERED: ALBUTEROL HFA 8 GM INHALER INH PRN (15:00)
[2017-12-20] MEDS ORDERED: VANCOMYCIN INJ 2,750 MG in SODIUM CHLORIDE 0.9% 500ML 500 ML IV ONE (15:00)
[2017-12-20] MEDS ORDERED: LEVALBUTEROL/IPRATROPIUM NEB INH SCH (15:00)
[2017-12-20] MEDS ORDERED: OXYCODONE/ACETAMINOPHEN 5-325 TAB PO PRN (15:00)
--- NOTE | 2017-12-20 15:03 | Pharmacy Progress Note ---
Pharmacy Antibiotic Consult Date of Service: Dec 20, 2017. Pharmacy Dosing Scope Pharmacy is consulted to initiate Vancomycin and Zosyn IV dosing therapy, order appropriate labs and adjust drug dose/frequency. Subjective The patient is a 77 year old male admitted on 12/20/2017. Objective Height (Feet): 6 Height (Inches): 1.00 Weight (Kilograms): 149.000 Lab Results (24hrs): Test 12/20/17 13:00 12/20/17 13:08 12/20/17 14:11 12/20/17 14:15 White Blood Count 8.86 K/uL (4.8-10.8) Red Blood Count 4.44 M/uL (4.7-6.1) Hemoglobin 15.6 g/dL (14.0-18.0) Hematocrit 49.7 % (42-52) Mean Corpuscular Volume 111.9 fL (80-100) Mean Corpuscular Hemoglobin 35.1 pg (25-34) Mean Corpuscular Hemoglobin Concent 31.4 g/dl (32-36) Platelet Count 88 K/uL (130-400) Mean Platelet Volume 12.3 fL (7.4-10.4) Neutrophils (%) (Auto) 79.8 % Lymphocytes (%) (Auto) 9.1 % Monocytes (%) (Auto) 10.7 % Eosinophils (%) (Auto) 0.0 % Basophils (%) (Auto) 0.2 % Neutrophils # (Auto) 7.06 K/uL (1.4-6.5) Lymphocytes # (Auto) 0.81 K/uL (1.2-3.4) Monocytes # (Auto) 0.95 K/uL (0.11-0.59) Eosinophils # (Auto) 0.00 K/uL (0-0.5) Basophils # (Auto) 0.02 K/uL (0-0.2) RDW Standard Deviation 58.0 fL (36.4-46.3) RDW Coefficient of Variation 14.0 % (11.5-14.5) Immature Granulocyte % (Auto) 0.2 % Immature Granulocyte # (Auto) 0.02 K/uL (0.00-0.02) Platelet Estimate DECREASED Macrocytosis PRESENT Prothrombin Time 12.2 SECONDS (9.0-12.0) Prothromb Time International Ratio 1.2 (0.9-1.1) D-Dimer 1750 ug/L FEU (0-500) Sodium Level 137 mmol/L (136-145) Potassium Level 4.8 mmol/L (3.5-5.1) Chloride Level 94 mmol/L (98-107) Carbon Dioxide Level 41 mmol/L (21-32) Anion Gap 2.0 mmol/L (3-11) Blood Urea Nitrogen 26 mg/dl (7-18) Creatinine 0.93 mg/dl (0.60-1.40) Est Creatinine Clear Calc Drug Dose 99.6 ml/min Estimated GFR () 90.8 Estimated GFR (Non- 78.4 BUN/Creatinine Ratio 27.8 (10-20) Random Glucose 149 mg/dl (70-99) Calcium Level 8.7 mg/dl (8.5-10.1) Total Bilirubin 0.6 mg/dl (0.2-1) Aspartate Amino Transf (AST/SGOT) 53 U/L (15-37) Alanine Aminotransferase (ALT/SGPT) 46 U/L (12-78) Alkaline Phosphatase 262 U/L (45-117) Troponin I 0.052 ng/ml (0-0.045) Pro-B-Type Natriuretic Peptide 2422 pg/ml (0-1800) Total Protein 6.3 gm/dl (6.4-8.2) Albumin 2.7 gm/dl (3.4-5.0) Globulin 3.6 gm/dl (2.5-4.0) Albumin/Globulin Ratio 0.8 (0.9-2) Influenza Type A Antigen Neg for Influ A (NEG) Influenza Type B Antigen Neg for Influ B (NEG) Bedside Lactic Acid Venous 1.15 mmol/L (0.90-1.70) Test 12/20/17 14:30 12/20/17 14:51 Bedside Prothrombin Time INR 1.4 (0.9-1.1) Assessment & Plan Assessment 77 year male admitted for a change in mental status. Admitted in October for right hip and wrist fracture, discharged on 11/26. * Pt has a clinical history on pneumonia. * Renal function at baseline * Blood cultures pending * MRSA nasal swab ordered. * Pt has a BMI of 43 which makes him at risk to accumulate vancomycin. Plan Vancomycin * Loading dose: 2750 mg (18mg/kg) IV X 1 dose then * Maintenance dose: 2000mg (13mg/kg) IV 10 hours. * Trough level ordered for 12/22 @0530 * Goal trough for pneumonia: 15-20 mcg/mL Zosyn * 4.5 gm load followed by EI 4.5 gm IV q 8 hours. * Higher dosing selected for BMI>35 Pharmacy will continue to follow and will adjust dose/frequency as necessary. Thank you
[2017-12-20 15:32] LABS: INFLUENZA A PCR Neg for Influ A (NEG); INFLUENZA B PCR Neg for Influ B (NEG)
--- NOTE | 2017-12-20 15:39 | DIAGNOSTIC IMAGING REPORT ---
BILATERAL LOWER EXTREMITY VENOUS DOPPLER CLINICAL HISTORY: HYPOXIA /RECENT HIP SURGERY R/O DVT COMPARISON STUDY: No previous studies for comparison. TECHNIQUE: Sonography of the deep venous system of the bilateral lower extremities was performed. Compression and augmentation were evaluated. FINDINGS: The right superficial femoral and popliteal veins were incompletely compressible. There is age indeterminate nonocclusive deep venous thrombus within the right superficial femoral, popliteal and posterior tibial veins. There is no deep venous thrombus within the left lower extremity. IMPRESSION: 1. Age indeterminate nonocclusive deep venous thrombus within the right superficial femoral, popliteal and posterior tibial veins. 2. No deep venous thrombus within the left lower extremity. Electronically signed by: Charlie Yeager M.D. 12/20/2017 3:38 PM Dictated Date/Time: 12/20/2017 3:36 PM
--- NOTE | 2017-12-20 15:55 | DIAGNOSTIC IMAGING REPORT ---
CT ANGIOGRAPHY OF THE CHEST, PULMONARY EMBOLUS PROTOCOL CLINICAL HISTORY: Hypoxia. COMPARISON STUDY: Chest CT November 26, 2017 and chest radiograph performed earlier today. TECHNIQUE: Following IV administration of 116 mL of Optiray-320, helical axial images of the chest were obtained utilizing the pulmonary embolus protocol. Maximal intensity projections and sagittal and coronal reformats were viewed on an independent 3D workstation. IV contrast was administered without complication. A dose lowering technique was utilized adhering to the principles of ALARA. CT DOSE: 724.87 mGy.cm FINDINGS: No pulmonary emboli are identified. There is no evidence of thoracic aortic dissection. The heart is moderately enlarged. There is moderate coronary artery calcification. No enlarged thoracic lymph nodes are present. There are are small amount of secretions within the trachea. Segmental lingular, right lower lobe and left lower lobe opacities have increased since prior exam. There is volume loss. There is mild right middle lobe airspace opacity. There is no cavitation. There is no pneumothorax. A small left pleural effusion is present. No suspicious bony lesions are shown within the chest. There are old left rib fractures. Upper abdomen is unremarkable. Gallbladder is surgically absent. IMPRESSION: 1. No pulmonary emboli identified although segmental and subsegmental pulmonary arteries suboptimally assessed due to respiratory motion. 2. Moderate bilateral lower lobe and lingular opacities which favor atelectasis. Pneumonia could appear similar. 3. Mild right middle lobe airspace opacity which favors bronchopneumonia. 4. Moderate cardiomegaly. Moderate coronary artery calcification. Electronically signed by: Charlie Yeager M.D. 12/20/2017 3:54 PM Dictated Date/Time: 12/20/2017 3:46 PM
[2017-12-20 16:08] VITALS: BP 105/68; PULSE 79; TEMP 36.9; O2SAT 94; BMI 41.9
--- NOTE | 2017-12-20 16:55 | EMERGENCY ROOM VISIT NOTE ---
History Report prepared by Ralph: Rinku Figueroa Under the Supervision of: Dr. Robert Jacobs M.D. First contact with patient: 13:32 Chief Complaint: ILLNESS Stated Complaint: CHANGE IN MENTAL STATUS History of Present Illness The patient is a 77 year old male who presents to the Emergency Room with altered mental status that occurred prior to arrival. The patient fell 5 weeks ago and broke his wrist and his hip. The patient denies urinary symptoms, chest pain, lower extremity swelling, and fevers. Of note, the patient is staying at [facility], wears a BiPAP, and currently takes Xarelto. Per the son, he denies any history of diabetes or new medications. He has been on Levaquin for pneumonia. Denies recent fall. Son says he has no smoking history Source of History: patient, family Onset: SECTION [employer] Position: other (global) Timing: constant Associated Symptoms: No fevers, No chest pain, No SOB, No urinary symptoms Review of Systems See HPI for pertinent positives & negatives. A total of 10 systems reviewed and were otherwise negative. Past Medical & Surgical Medical Problems: (1) Hyperlipidemia Surgical Problems: (1) History of knee surgery (2) S/P cholecystectomy Old medical records were reviewed. Nurse's notes were reviewed and I agree with. Family History Diabetes mellitus Social History Smoking Status: Never Smoker Alcohol Use: none Drug Use: none Marital Status: single Housing Status: lives alone Occupation Status: retired Current/Historical Medications Scheduled Ascorbic Acid (Vitamin C), 500 MG PO DAILY Atorvastatin (Lipitor), 20 MG PO HS Fish Oil ([place]-3), 1 CAP PO DAILY Gabapentin (Neurontin), 400 MG PO TID Gemfibrozil (Gemfibrozil), 600 MG PO BID Metoprolol Tartrate (Lopressor), 12.5 MG PO BID Multivitamin (Multivitamin), 1 TAB PO DAILY Nutritional Supplements (Boost), 1 CAN PO DAILY Scheduled PRN Acetaminophen (Mapap), 650 MG PO Q6 PRN for Pain or Fever Albuterol Sulfate (Proair Respiclick), 2 PUFFS INH Q4 PRN for SOB/Wheezing Oxycodone/Acetaminophen 5MG/325MG (Percocet 5MG/325MG), 1 TAB PO Q8H PRN for Pain Polyethylene (Miralax), 17 GM PO DAILY PRN for Constipation Allergies Coded Allergies: No Known Allergies (Unverified , 12/20/17) Physical Exam Vital Signs Date Time Temp Pulse Resp B/P (MAP) Pulse Ox O2 Delivery O2 Flow Rate FiO2 12/20/17 13:55 79 18 96/60 95 Nasal Cannula 3.0 12/20/17 13:10 94 Nasal Cannula 5.0 12/20/17 13:05 84 12/20/17 13:00 37.0 84 20 100/52 91 Nasal Cannula 5.0 Physical Exam General: chronically ill appearing elderly male in no acute distress. Sleepy but arousable. Answering questions appropriately. HEENT: Normal cephalic atraumatic. Pupils are equal round and reactive to light. Extraocular movements are intact. Oropharynx is pink with moist mucous membranes. No swelling of the mouth lips or tongue. Neck: Supple with a midline trachea. No meningeal signs or stiffness, no JVD or bruits. No Stridor. Chest: Clear to auscultation bilaterally. Crackles in lung bases. No wheezes or rhonchi. No increased work of breathing. Heart: regular rate and rhythm. Abdomen: Soft nontender, nondistended without rebound guarding or rigidity. Extremities: No cyanosis clubbing. No calf tenderness or assymetry. Trace pitting edema in lower extremities. Spine/Back. Non tender to palpation. No CVA tenderness Skin: Good turgor without rashes. Neurologic exam: Cranial nerves two through 12 are intact. Motor and sensation are intact and symmetrical throughout. Medical Decision & Procedures ER Provider Diagnostic Interpretation: Radiology results as stated below per my review and radiologist interpretation: CHEST ONE VIEW PORTABLE CLINICAL HISTORY: Pneumonia COMPARISON STUDY: November 25, 2017 FINDINGS: The heart is enlarged. There are left middle and lower lung zone airspace opacities consistent with the clinical history of pneumonia. There is a small left pleural effusion. There is mild elevation of the interstitium. An element of mild pulmonary vascular congestion cannot be excluded.[ IMPRESSION: 1. Left mid and lower lung zone airspace opacities, consistent with a clinical history of a pneumonia. Small left pleural effusion. Films subsequent to treatment are recommended in follow-up. Electronically signed by: Yury Mendes M.D. 12/20/2017 1:23 PM Dictated Date/Time: 12/20/2017 1:22 PM Laboratory Results 12/20/17 13:00 Red Blood Count 4.44, Mean Corpuscular Volume 111.9, Mean Corpuscular Hemoglobin 35.1, Mean Corpuscular Hemoglobin Concent 31.4, Mean Platelet Volume 12.3, Neutrophils (%) (Auto) 79.8, Lymphocytes (%) (Auto) 9.1, Monocytes (%) ( Auto) 10.7, Eosinophils (%) (Auto) 0.0, Basophils (%) (Auto) 0.2, Neutrophils # (Auto) 7.06, Lymphocytes # (Auto) 0.81, Monocytes # (Auto) 0.95, Eosinophils # ( Auto) 0.00, Basophils # (Auto) 0.02 12/20/17 13:00 Test 12/20/17 13:00 12/20/17 13:08 12/20/17 14:11 White Blood Count 8.86 K/uL (4.8-10.8) Red Blood Count 4.44 M/uL (4.7-6.1) Hemoglobin 15.6 g/dL (14.0-18.0) Hematocrit 49.7 % (42-52) Mean Corpuscular Volume 111.9 fL (80-100) Mean Corpuscular Hemoglobin 35.1 pg (25-34) Mean Corpuscular Hemoglobin Concent 31.4 g/dl (32-36) Platelet Count 88 K/uL (130-400) Mean Platelet Volume 12.3 fL (7.4-10.4) Neutrophils (%) (Auto) 79.8 % Lymphocytes (%) (Auto) 9.1 % Monocytes (%) (Auto) 10.7 % Eosinophils (%) (Auto) 0.0 % Basophils (%) (Auto) 0.2 % Neutrophils # (Auto) 7.06 K/uL (1.4-6.5) Lymphocytes # (Auto) 0.81 K/uL (1.2-3.4) Monocytes # (Auto) 0.95 K/uL (0.11-0.59) Eosinophils # (Auto) 0.00 K/uL (0-0.5) Basophils # (Auto) 0.02 K/uL (0-0.2) RDW Standard Deviation 58.0 fL (36.4-46.3) RDW Coefficient of Variation 14.0 % (11.5-14.5) Immature Granulocyte % (Auto) 0.2 % Immature Granulocyte # (Auto) 0.02 K/uL (0.00-0.02) Platelet Estimate DECREASED Macrocytosis PRESENT Prothrombin Time 12.2 SECONDS (9.0-12.0) Prothromb Time International Ratio 1.2 (0.9-1.1) D-Dimer 1750 ug/L FEU (0-500) Anion Gap 2.0 mmol/L (3-11) Est Creatinine Clear Calc Drug Dose 99.6 ml/min Estimated GFR () 90.8 Estimated GFR (Non- 78.4 BUN/Creatinine Ratio 27.8 (10-20) Calcium Level 8.7 mg/dl (8.5-10.1) Total Bilirubin 0.6 mg/dl (0.2-1) Aspartate Amino Transf (AST/SGOT) 53 U/L (15-37) Alanine Aminotransferase (ALT/SGPT) 46 U/L (12-78) Alkaline Phosphatase 262 U/L (45-117) Troponin I 0.052 ng/ml (0-0.045) Pro-B-Type Natriuretic Peptide 2422 pg/ml (0-1800) Total Protein 6.3 gm/dl (6.4-8.2) Albumin 2.7 gm/dl (3.4-5.0) Globulin 3.6 gm/dl (2.5-4.0) Albumin/Globulin Ratio 0.8 (0.9-2) Influenza Type A (RT-PCR) Neg for Influ A (NEG) Influenza Type A Antigen Neg for Influ A (NEG) Influenza Type B Antigen Neg for Influ B (NEG) Influenza Type B (RT-PCR) Neg for Influ B (NEG) Bedside Lactic Acid Venous 1.15 mmol/L (0.90-1.70) Laboratory studies as stated above per my review. Medications Administered Medications (Trade) Dose Ordered Sig/Lacey Route Start Time Stop Time Status Last Admin Dose Admin Piperacillin Sod/ Tazobactam Sod (Zosyn Iv) 4.5 gm NOW STAT IV 12/20/17 13:44 12/20/17 13:45 DC 12/20/17 14:15 4.5 GM ED Course 1332: Past medical records reviewed. The patient was evaluated in room C11B, and a complete history and physical examination were performed. 1344: Zosyn, IV, 4.5 gm IV. 1358: I spoke with Dr. Richardson. Discussed the patient's case. The patient will be evaluated for further management. 1400: Upon reevaluation, the patient is doing well. I discussed the results and treatment plan with the patient. He verbalized agreement of the treatment plan. The patient will be evaluated for further management. 1654: I spoke with Dr. Richardson about an ABG. Discussed the patient's case. The patient will be evaluated for further management. Medical Decision Differential diagnoses include CHF, COPD, pneumonia, sepsis, cardiac disease, electrolyte and metabolic abnormality. This patient comes in as described above. He was placed in room C 11 he is found to be hypoxemic and confused this morning he is sleepy but easily arousable. He apparently is been treated for pneumonia his lungs sound rhonchorous more so on the left with crackles. He appears in no respiratory distress. he was initially was on 5 L of oxygen and I cut this back down to 3 as there is concern for possible CO2 retention although he has no history of smoking or lung disease prior according to the son. He is afebrile here. IV access was established and blood work was obtained including blood cultures. His lactic acid is not significantly elevated nor is his white count. He does have some renal insufficiency. Chest x-ray shows findings likely consistent with pneumonia and concerned. there could be congestive heart failure component as well his BNP is elevated as well as his troponin. I did discuss the case with Dylan and she had recommended we get a blood gas I did order this. They had also ordered a CT of his chest there is no evidence of PE there are findings consistent with pneumonia. The patient was admitted. He was given IV Zosyn here. The blood gas did come back after the patient was upstairs with a pH of 7.32 and a PCO2 of 76, I relayed this to Dr. Richardson as I think the patient may need to be on BiPAP. The patient will be admitted. Medication Reconcilliation Current Medication List: was personally reviewed by me Blood Pressure Screening Patient's blood pressure: Normal blood pressure Blood pressure disposition: Did not require urgent referral Consults Time Called: [phone] Consulting Physician: Dr. Dylan Montemayor Returned Call: [phone] Discussed the patient's case. The patient will be evaluated for further management. Additional Consults: Time Called: 1651 Consulted Physician: Dr. Dylan Montemayor Returned Call: [phone] Additional Comments: I spoke about an ABG. Discussed the patient's case. The patient will be evaluated for further management. Impression Primary Impression: Pneumonia Additional Impressions: Hypoxemia Altered mental status Sepsis CO2 retention Critical Care I have personally spent greater than 30 minutes of critical care time in the direct management of this patient. This includes bedside care, interpretation of diagnostic studies, and testing, discussion with consultants, patient, and family members, and other required patient management activities. This 30 minutes is in excess of all separately billable procedures. Scribe Attestation The scribe's documentation has been prepared under my direction and personally reviewed by me in its entirety. I confirm that the note above accurately reflects all work, treatment, procedures, and medical decision making performed by me. Departure Information Dispostion Being Evaluated By Hospitalist Referrals Maico Mcdonald DAnaOAna (PCP) Patient Instructions My [facility] Problem Qualifiers
[2017-12-20 17:25] VITALS: PULSE 68; O2SAT 95
[2017-12-20] MEDS ORDERED: XRL10 PO (17:25)
[2017-12-20] MEDS: RIVAROXABAN 20 MG TAB PO SCH (18:22)
[2017-12-20 19:53] VITALS: BP 120/71; PULSE 80; TEMP 36.6; O2SAT 93
[2017-12-20] MEDS: GEMFIBROZIL 600 MG TAB PO SCH (20:43)
[2017-12-20] MEDS: ATORVASTATIN 20 MG TAB PO SCH (20:43)
[2017-12-20] MEDS: METOPROLOL TARTRATE 25 MG TAB PO SCH (20:43)
[2017-12-20] MEDS: GABAPENTIN 400 MG CAP PO SCH (20:43)
[2017-12-20] MEDS: PIPERACILL/TAZOBAC IV 4.5 GM in DEXTROSE 5% 100ML 100 ML IV SCH (20:48)
[2017-12-20 20:52] VITALS: PULSE 81; O2SAT 94
[2017-12-20] MEDS: IPRATROPIUM BROMIDE NEB SOLN 0.02% 2.5 ML VIAL INH SCH (20:52)
[2017-12-20] MEDS: LEVALBUTEROL 1.25MG/0.5ML NEB INH SCH (20:52)
[2017-12-20 23:15] VITALS: BP 109/70; PULSE 71; TEMP 36.4; O2SAT 94
[2017-12-20] MEDS: VANCOMYCIN INJ 2,000 MG in SODIUM CHLORIDE 0.9% 500ML 500 ML IV SCH (23:43)
[2017-12-21] VITALS (9 sets, daily range): BP systolic 93–110; BP diastolic 57–67; PULSE 71–108; TEMP 36.5–36.9; O2SAT 90–99; Ht 185.4 cm; Wt 144.0 kg
[2017-12-21 02:26] LABS: HEMOGLOBIN 13.7 g/dL (14.0-18.0); MEAN CELL VOLUME 111.1 fL (80-100); MEAN CORPUSCULAR HEMOGLOBIN 33.8 pg (25-34); MEAN CORPUSCULAR HGB CONC 30.4 g/dl (32-36); MEAN PLATELET VOLUME 12.6 fL (7.4-10.4); PLATELET COUNT 75 K/uL (130-400); RED CELL DISTRIBUTION WIDTH CV 13.9 % (11.5-14.5); RED CELL DISTRIBUTION WIDTH SD 56.3 fL (36.4-46.3); WHITE BLOOD COUNT 5.38 K/uL (4.8-10.8)
[2017-12-21] MEDS: IPRATROPIUM BROMIDE NEB SOLN 0.02% 2.5 ML VIAL INH SCH ×4 (02:29→19:17)
[2017-12-21] MEDS: LEVALBUTEROL 1.25MG/0.5ML NEB INH SCH ×4 (02:29→19:17)
[2017-12-21 03:13] LABS: ALBUMIN 2.2 gm/dl (3.4-5.0); CALCIUM 8.5 mg/dl (8.5-10.1); CREATININE 0.62 mg/dl (0.60-1.40); PHOSPHORUS 2.7 mg/dl (2.5-4.9); POTASSIUM 4.3 mmol/L (3.5-5.1); TOTAL PROTEIN 5.2 gm/dl (6.4-8.2)
[2017-12-21] MEDS: PIPERACILL/TAZOBAC IV 4.5 GM in DEXTROSE 5% 100ML 100 ML IV SCH ×3 (04:39→20:57)
[2017-12-21] MEDS ORDERED: PERFLUTREN LIPID MICROSPHERE (DEFINITY) IV ONE (07:17)
[2017-12-21] MEDS ORDERED: BOOST VANILLA PO SCH (09:00)
[2017-12-21] MEDS: ASCORBIC ACID 500 MG TAB PO SCH (09:10)
[2017-12-21] MEDS: GABAPENTIN 400 MG CAP PO SCH ×3 (09:11→20:57)
[2017-12-21] MEDS: MULTIVITAMIN TAB PO SCH (09:11)
[2017-12-21] MEDS: METOPROLOL TARTRATE 25 MG TAB PO SCH ×2 (09:11→20:57)
[2017-12-21] MEDS: GEMFIBROZIL 600 MG TAB PO SCH ×2 (09:11→20:57)
[2017-12-21] MEDS: OMEGA-3 (PURIFIED FISH OIL) 1 GM CAP PO SCH (09:11)
[2017-12-21] MEDS: VANCOMYCIN INJ 2,000 MG in SODIUM CHLORIDE 0.9% 500ML 500 ML IV SCH (09:18)
--- NOTE | 2017-12-21 12:56 | Progress Note ---
Medicine Progress Note Date & Time of Visit: Dec 21, 2017 at 12:22. Subjective 77 yo M came from [facility] where he was recovering from a recent orthopedic injury for worsening shortness of breath and lethargy. He was being treated for pneumonia with Levaquin PO as outpatient. Overnight he was on the BIPAP with improvement in his breathing and he feels improved from that standpoint. He denies any chest or abdominal pain or chills. He is tolerating PO and afebrile at this time. Denies excessive coughing. Objective Last 8 Hrs Date Time Temp Pulse Resp B/P (MAP) Pulse Ox O2 Delivery O2 Flow Rate FiO2 12/21/17 12:03 36.8 75 16 105/61 (76) 94 Nasal Cannula 4.0 12/21/17 08:00 Nasal Cannula 4.0 12/21/17 07:49 36.5 72 16 110/67 (81) 99 Nasal Cannula 4.0 12/21/17 07:07 84 18 96 Nasal Cannula 4.0 Physical Exam: GEN: obese, in no acute distress, alert and appropriate HEENT: NC/AT, pupils were equal and round bilaterally, normal sclerae, MMM, nasal canula in place. CARDIO: reg rate, S1/2 heard without m/g/r LUNGS: wheezing at bases bilaterally ABD: soft, non-tender, non-distended, no rebound or guarding, +BS EXTREMITY: RP and DP palpable 2+ bilat, no LE swelling or edema, extremities are warm and well-perfused NEURO: CN 2-12 grossly intact MUSC: 5/5 strength throughout, no gross focal deficits SKIN: warm and dry Laboratory Results: 12/21/17 02:05 12/21/17 02:05 Test 12/20/17 13:00 12/20/17 13:08 12/20/17 14:11 12/20/17 14:30 Immature Granulocyte % (Auto) 0.2 % White Blood Count 8.86 K/uL (4.8-10.8) Red Blood Count 4.44 M/uL (4.7-6.1) Hemoglobin 15.6 g/dL (14.0-18.0) Hematocrit 49.7 % (42-52) Mean Corpuscular Volume 111.9 fL (80-100) Mean Corpuscular Hemoglobin 35.1 pg (25-34) Mean Corpuscular Hemoglobin Concent 31.4 g/dl (32-36) Platelet Count 88 K/uL (130-400) Mean Platelet Volume 12.3 fL (7.4-10.4) Neutrophils (%) (Auto) 79.8 % Lymphocytes (%) (Auto) 9.1 % Monocytes (%) (Auto) 10.7 % Eosinophils (%) (Auto) 0.0 % Basophils (%) (Auto) 0.2 % Neutrophils # (Auto) 7.06 K/uL (1.4-6.5) Lymphocytes # (Auto) 0.81 K/uL (1.2-3.4) Monocytes # (Auto) 0.95 K/uL (0.11-0.59) Eosinophils # (Auto) 0.00 K/uL (0-0.5) Basophils # (Auto) 0.02 K/uL (0-0.2) Immature Granulocyte # (Auto) 0.02 K/uL (0.00-0.02) Platelet Estimate DECREASED Macrocytosis PRESENT Peripheral Blood Smear Path Consult Prothrombin Time 12.2 SECONDS (9.0-12.0) Prothromb Time International Ratio 1.2 (0.9-1.1) D-Dimer 1750 ug/L FEU (0-500) Pro-B-Type Natriuretic Peptide 2422 pg/ml (0-1800) Influenza Type A (RT-PCR) Neg for Influ A (NEG) Influenza Type A Antigen Neg for Influ A (NEG) Influenza Type B Antigen Neg for Influ B (NEG) Influenza Type B (RT-PCR) Neg for Influ B (NEG) Bedside Lactic Acid Venous 1.15 mmol/L (0.90-1.70) Bedside Prothrombin Time INR 1.4 (0.9-1.1) Test 12/20/17 17:00 12/20/17 18:45 12/21/17 02:05 12/21/17 08:45 Urine Color YELLOW Urine Appearance CLEAR (CLEAR) Urine pH 6.0 (4.5-7.5) Urine Specific [place] > 1.045 (1.000-1.030) Urine Protein NEG (NEG) Urine Glucose (UA) NEG (NEG) Urine Ketones NEG (NEG) Urine Occult Blood 2+ (NEG) Urine Nitrite NEG (NEG) Urine Bilirubin NEG (NEG) Urine Urobilinogen NEG (NEG) Urine Leukocyte Esterase NEG (NEG) Urine WBC (Auto) 1-5 /hpf (0-5) Urine RBC (Auto) >30 /hpf (0-4) Urine Hyaline Casts (Auto) 1-5 /lpf (0-5) Urine Epithelial Cells (Auto) 5-10 /lpf (0-5) Urine Bacteria (Auto) NEG (NEG) Urine Yeast (Auto) (NONE PRSENT) Arterial Blood pH 7.37 (7.35-7.45) Arterial Blood Partial Pressure CO2 66 mmHg (35-46) Arterial Blood Partial Pressure O2 91 mm/Hg (80-95) Arterial Blood HCO3 37 mmol/L (19-24) Arterial Blood Oxygen Saturation 96.6 % (90-95) Arterial Blood Base Excess 9.0 mEq/L (-9-1.8) Arterial Blood Gas Delivery ROOM AIR Darrell Test POS (POS) Red Blood Count 4.05 M/uL (4.7-6.1) Mean Corpuscular Volume 111.1 fL (80-100) Mean Corpuscular Hemoglobin 33.8 pg (25-34) Mean Corpuscular Hemoglobin Concent 30.4 g/dl (32-36) RDW Standard Deviation 56.3 fL (36.4-46.3) RDW Coefficient of Variation 13.9 % (11.5-14.5) Mean Platelet Volume 12.6 fL (7.4-10.4) Anion Gap 1.0 mmol/L (3-11) Est Creatinine Clear Calc Drug Dose 146.5 ml/min Estimated GFR () 110.1 Estimated GFR (Non- 95.0 BUN/Creatinine Ratio 32.9 (10-20) Calcium Level 8.5 mg/dl (8.5-10.1) Phosphorus Level 2.7 mg/dl (2.5-4.9) Magnesium Level 1.8 mg/dl (1.8-2.4) Total Bilirubin 0.6 mg/dl (0.2-1) Direct Bilirubin 0.2 mg/dl (0-0.2) Aspartate Amino Transf (AST/SGOT) 35 U/L (15-37) Alanine Aminotransferase (ALT/SGPT) 36 U/L (12-78) Alkaline Phosphatase 203 U/L (45-117) Total Protein 5.2 gm/dl (6.4-8.2) Albumin 2.2 gm/dl (3.4-5.0) Globulin 3.0 gm/dl (2.5-4.0) Albumin/Globulin Ratio 0.7 (0.9-2) Triglycerides Level 56 mg/dl (0-150) Cholesterol Level 83 mg/dl (0-200) HDL Cholesterol 39 mg/dl LDL Cholesterol, Calculated 33 mg/dl VLDL Cholesterol, Calculated 11 mg/dl Cholesterol/HDL Ratio 2.1 Troponin I 0.033 ng/ml (0-0.045) Date/Time Source Procedure Growth Status 12/20/17 14:05 Blood Blood Culture Pending Received 12/20/17 16:30 Nasal MRSA DNA Surveillance Screen - Final Specimen Negative for MRSA by DNA Probe Complete 12/20/17 17:00 Urine , Clean Catch Urine Culture Pending Received Last 24 Hours Test 12/20/17 13:00 12/20/17 13:08 12/20/17 14:11 12/20/17 14:30 White Blood Count 8.86 K/uL Red Blood Count 4.44 M/uL Hemoglobin 15.6 g/dL Hematocrit 49.7 % Mean Corpuscular Volume 111.9 fL Mean Corpuscular Hemoglobin 35.1 pg Mean Corpuscular Hemoglobin Concent 31.4 g/dl Platelet Count 88 K/uL Mean Platelet Volume 12.3 fL Neutrophils (%) (Auto) 79.8 % Lymphocytes (%) (Auto) 9.1 % Monocytes (%) (Auto) 10.7 % Eosinophils (%) (Auto) 0.0 % Basophils (%) (Auto) 0.2 % Neutrophils # (Auto) 7.06 K/uL Lymphocytes # (Auto) 0.81 K/uL Monocytes # (Auto) 0.95 K/uL Eosinophils # (Auto) 0.00 K/uL Basophils # (Auto) 0.02 K/uL RDW Standard Deviation 58.0 fL RDW Coefficient of Variation 14.0 % Immature Granulocyte % (Auto) 0.2 % Immature Granulocyte # (Auto) 0.02 K/uL Platelet Estimate DECREASED Macrocytosis PRESENT Peripheral Blood Smear Path Consult Prothrombin Time 12.2 SECONDS Prothromb Time International Ratio 1.2 D-Dimer 1750 ug/L FEU Sodium Level 137 mmol/L Potassium Level 4.8 mmol/L Chloride Level 94 mmol/L Carbon Dioxide Level 41 mmol/L Anion Gap 2.0 mmol/L Blood Urea Nitrogen 26 mg/dl Creatinine 0.93 mg/dl Est Creatinine Clear Calc Drug Dose 99.6 ml/min Estimated GFR () 90.8 Estimated GFR (Non- 78.4 BUN/Creatinine Ratio 27.8 Random Glucose 149 mg/dl Calcium Level 8.7 mg/dl Total Bilirubin 0.6 mg/dl Aspartate Amino Transf (AST/SGOT) 53 U/L Alanine Aminotransferase (ALT/SGPT) 46 U/L Alkaline Phosphatase 262 U/L Troponin I 0.052 ng/ml Pro-B-Type Natriuretic Peptide 2422 pg/ml Total Protein 6.3 gm/dl Albumin 2.7 gm/dl Globulin 3.6 gm/dl Albumin/Globulin Ratio 0.8 Influenza Type A (RT-PCR) Neg for Influ A Influenza Type A Antigen Neg for Influ A Influenza Type B Antigen Neg for Influ B Influenza Type B (RT-PCR) Neg for Influ B Bedside Lactic Acid Venous 1.15 mmol/L Bedside Prothrombin Time INR 1.4 Test 12/20/17 14:51 12/20/17 17:00 12/20/17 18:45 12/20/17 20:14 Arterial Blood pH 7.32 7.37 Arterial Blood Partial Pressure CO2 76 mmHg 66 mmHg Arterial Blood Partial Pressure O2 94 mm/Hg 91 mm/Hg Arterial Blood HCO3 39 mmol/L 37 mmol/L Arterial Blood Oxygen Saturation 96.5 % 96.6 % Arterial Blood Base Excess 9.1 mEq/L 9.0 mEq/L Arterial Blood Gas Delivery 3 L ROOM AIR Darrell Test POS POS Urine Color YELLOW Urine Appearance CLEAR Urine pH 6.0 Urine Specific [place] > 1.045 Urine Protein NEG Urine Glucose (UA) NEG Urine Ketones NEG Urine Occult Blood 2+ Urine Nitrite NEG Urine Bilirubin NEG Urine Urobilinogen NEG Urine Leukocyte Esterase NEG Urine WBC (Auto) 1-5 /hpf Urine RBC (Auto) >30 /hpf Urine Hyaline Casts (Auto) 1-5 /lpf Urine Epithelial Cells (Auto) 5-10 /lpf Urine Bacteria (Auto) NEG Urine Yeast (Auto) Troponin I 0.048 ng/ml Test 12/21/17 02:05 12/21/17 08:45 White Blood Count 5.38 K/uL Red Blood Count 4.05 M/uL Hemoglobin 13.7 g/dL Hematocrit 45.0 % Mean Corpuscular Volume 111.1 fL Mean Corpuscular Hemoglobin 33.8 pg Mean Corpuscular Hemoglobin Concent 30.4 g/dl RDW Standard Deviation 56.3 fL RDW Coefficient of Variation 13.9 % Platelet Count 75 K/uL Mean Platelet Volume 12.6 fL Sodium Level 136 mmol/L Potassium Level 4.3 mmol/L Chloride Level 96 mmol/L Carbon Dioxide Level 39 mmol/L Anion Gap 1.0 mmol/L Blood Urea Nitrogen 20 mg/dl Creatinine 0.62 mg/dl Est Creatinine Clear Calc Drug Dose 146.5 ml/min Estimated GFR () 110.1 Estimated GFR (Non- 95.0 BUN/Creatinine Ratio 32.9 Random Glucose 108 mg/dl Calcium Level 8.5 mg/dl Phosphorus Level 2.7 mg/dl Magnesium Level 1.8 mg/dl Total Bilirubin 0.6 mg/dl Direct Bilirubin 0.2 mg/dl Aspartate Amino Transf (AST/SGOT) 35 U/L Alanine Aminotransferase (ALT/SGPT) 36 U/L Alkaline Phosphatase 203 U/L Troponin I 0.038 ng/ml 0.033 ng/ml Total Protein 5.2 gm/dl Albumin 2.2 gm/dl Globulin 3.0 gm/dl Albumin/Globulin Ratio 0.7 Triglycerides Level 56 mg/dl Cholesterol Level 83 mg/dl HDL Cholesterol 39 mg/dl LDL Cholesterol, Calculated 33 mg/dl VLDL Cholesterol, Calculated 11 mg/dl Cholesterol/HDL Ratio 2.1 Date/Time Source Procedure Growth Status 12/20/17 14:05 Blood Blood Culture Pending Received 12/20/17 13:00 Blood Blood Culture Pending Received 12/20/17 16:30 Nasal MRSA DNA Surveillance Screen - Final Specimen Negative for MRSA by DNA Probe Complete 12/20/17 17:00 Urine , Clean Catch Urine Culture Pending Received Assessment & Plan 77 yo M came from [facility] where he was recovering from a recent orthopedic injury for worsening shortness of breath and lethargy. He was being treated for pneumonia with Levaquin PO as outpatient. Overnight he was on the BIPAP with improvement in his breathing and he feels improved from that standpoint. He denies any chest or abdominal pain or chills. He is tolerating PO and afebrile at this time. Denies excessive coughing. 1. Acute on chronic respiratory failure 2/2 HCAP pneumonia in setting of known diastolic dysfunction, obesity and chronic nocturnal hypoxia requiring supplemental oxygen. Poss COPD with exacerbation. CO2 retention improved after BIPAP. No evidence of PE on CTA chest. Cont Zosyn pending cultures. Cont supplemental oxygen with breathing treatments for wheezing heard on exam today. Flu negative. 2. Confusion 2/2 CO2 retention-resolved after BIPAP 3. Recent wrist and hip fracture s/p surgery 5 weeks ago-continues rehab in . Pt informs me that he is still non-weightbearing. Will consult Ortho to ensure appropriate post-operative care measures are clearly defined. 4. Nocturnal hypoxia-pt reports oxygen at night only. He denies a h/o ABDULLAHI and doesn't use CPAP at night regularly. 5. HTN-controlled, cont metoprolol 6. Peripheral neuropathy-cont gabapentin. 7. Morbid obesity DNR/DNI DVT PROPHYLAXIS moderate to high risk; on Xarelto -per Ortho post femur fx DISPOSITION : expected to return back to [facility] when medically stable Rachele Smith DO [facility] Hospitalist Current Inpatient Medications: Current Inpatient Medications Medications (Trade) Dose Ordered Sig/Lacey Route Start Time Stop Time Status Last Admin Dose Admin Piperacillin Sod/ Tazobactam Sod 4.5 gm/Dextrose 120 ml @ 30 mls/hr Q8H IV 12/20/17 20:00 12/27/17 19:59 12/21/17 04:39 30 MLS/HR Miscellaneous Information (Consult) 1 ea UD PRN N/A 12/20/17 14:30 01/19/18 14:29 Acetaminophen (Tylenol Tab) 650 mg Q4H PRN PO 12/20/17 14:45 01/19/18 14:44 Al Hydrox/Mg Hydrox/Simethicone (Maalox Max Susp) 15 ml Q4H PRN PO 12/20/17 14:45 01/19/18 14:44 Magnesium Hydroxide (Milk Of Magnesia Susp) 30 ml Q12H PRN PO 12/20/17 14:45 01/19/18 14:44 Nitroglycerin (Nitrostat Tab) 0.4 mg UD PRN SL 12/20/17 14:45 01/19/18 14:44 Polyethylene (Miralax Powder Packet) 17 gm DAILY PRN PO 12/20/17 14:45 01/19/18 14:44 Ioversol (Optiray 320) 100 ml UD PRN IV 12/20/17 14:45 12/24/17 14:44 Atorvastatin Calcium (Lipitor Tab) 20 mg HS PO 12/20/17 21:00 01/19/18 20:59 12/20/17 20:43 20 MG Fish Oil ([place]-3 (Purified Fish Oil) Cap) 1 gm DAILY PO 12/21/17 09:00 01/20/18 08:59 12/21/17 09:11 1 GM Gabapentin (Neurontin Cap) 400 mg TID PO 12/20/17 21:00 01/19/18 20:59 12/21/17 09:11 400 MG Gemfibrozil (Lopid Tab) 600 mg BID PO 12/20/17 21:00 01/19/18 20:59 12/21/17 09:11 600 MG Metoprolol Tartrate (Lopressor Tab) 12.5 mg BID PO 12/20/17 21:00 01/19/18 20:59 12/21/17 09:11 12.5 MG Multivitamins (Multivitamin Tab) 1 tab DAILY PO 12/21/17 09:00 01/20/18 08:59 12/21/17 09:11 1 TAB Enteral Nutritional Formula (Boost) 1 can DAILY PO 12/21/17 09:00 01/20/18 08:59 12/21/17 09:18 1 CAN Oxycodone/ Acetaminophen (Percocet 5-325mg Tab) 1 tab Q8H PRN PO 12/20/17 15:00 01/03/18 14:59 Albuterol (Ventolin Hfa Inhaler) 2 puffs Q4 PRN INH 12/20/17 15:00 01/19/18 14:59 Ascorbic Acid (Vitamin C Tab) 500 mg DAILY PO 12/21/17 09:00 01/20/18 08:59 12/21/17 09:10 500 MG Ipratropium [place] (Atrovent 0.02% 0.5MG/2.5ML Neb) 0.5 mg Q6R INH 12/20/17 21:00 01/19/18 20:59 12/21/17 07:07 0.5 MG Levalbuterol (Xopenex 1.25MG/ 0.5ML Neb) 1.25 mg Q6R INH 12/20/17 21:00 01/19/18 20:59 12/21/17 07:07 1.25 MG Rivaroxaban (Xarelto Tab) 20 mg QDD PO 12/20/17 17:30 01/19/18 17:29 12/20/17 18:22 20 MG
--- NOTE | 2017-12-21 14:13 | ECHOCARDIOGRAM REPORT ---
*NOTICE TO RECEIVING DEMOCRAT AGENCY This information is strictly Confidential and protected under [place] law. [place] law prohibits you from making any further disclosure of this information unless further disclosure is expressly permitted by the written consent of the person to whom it pertains or is authorized by law. A general authorization for the release of medical or other information is not sufficient for this purpose. Hospital accepts no responsibility if the information is made available to any other person, INCLUDING THE PATIENT. Interpretation Summary * Conclusions -- * Normal LV chamber size with mild concentric LVH. * Normal LV systolic function, EF 55-60%. * No segmental left ventricular wall motion abnormalities are noted. * Grade I diastolic dysfunction. * No significant valvular pathology. Procedure Details * A complete two-dimensional transthoracic echocardiogram was performed (2D, M-mode, Doppler and color flow Doppler). * There were technical limitations due to patient's supine positioning positioning for imagining and body habitus * A contrast injection of Definity was performed to improve assessment of LV function. * Contrast was injected into an intravenous site in the left arm. * One vial of Definity ultrasound contrast was diluted in normal saline to a total volume of 10 ml. A total of '1' ml of solution was administered during imaging. * Lot # [id number] of Definity utilized for procedure. * Expiration date . * The attending nurse who injected the contrast agent was Inocencia Tompkins RN. Left Ventricle * The left ventricle is normal in size. * There is mild concentric left ventricular hypertrophy. * Ejection Fraction = 55-60%. * Left ventricular systolic function is normal. * No segmental left ventricular wall motion abnormalities are noted. * The left ventricular wall motion is normal. Right Ventricle * The right ventricular cavity size is normal (basal dimension <4.2 cm in right ventricular apical 4-chamber view). * The right ventricular systolic function is normal as assessed by tricuspid annular plane systolic excursion (TAPSE) (normal >1.5 cm). Atria * The left atrium is mildly dilated. * Right atrial size is normal. * No ASD detected; PFO is not assessed. Mitral Valve * The mitral valve is normal in structure and function. Tricuspid Valve * The tricuspid valve is normal in structure and function. Aortic Valve * The aortic valve is normal in structure and function. Pulmonic Valve * The pulmonary valve is not well seen, but the Doppler examination is normal without significant regurgitation or stenosis. Great Vessels * Mild aortic root dilatation. * Ascending aorta of normal dimension Pericardium/Pleural * There is no pericardial effusion. Left Ventricular Diastolic Function * Grade I diastolic dysfunction, (abnormal relaxation pattern). MMode 2D Measurements and Calculations IVSd 1.2 cm IVSs 1.5 cm LVIDd 4.4 cm LVIDs 3.0 cm LVPWd 1.2 cm LVPWs 1.5 cm IVS/LVPW 1.0 FS 32.1 % EDV(Teich) 88.0 ml ESV(Teich) 34.8 ml EF(Teich) 60.5 % EDV(cubed) 85.6 ml ESV(cubed) 26.8 ml EF(cubed) 68.7 % % IVS thick 27.7 % % LVPW thick 28.3 % LV mass(C)d 188.7 grams LV mass(C)dI 71.1 grams/m\S\2 LV mass(C)s 160.7 grams LV mass(C)sI 60.5 grams/m\S\2 SV(Teich) 53.2 ml SI(Teich) 20.0 ml/m\S\2 SV(cubed) 58.8 ml SI(cubed) 22.1 ml/m\S\2 Ao root diam 4.2 cm Ao root area 13.8 cm\S\2 ACS 2.6 cm LA dimension 4.5 cm asc Aorta Diam 3.6 cm LA/Ao 1.1 EDV(MOD-sp4) 159.1 ml ESV(MOD-sp4) 67.0 ml EF(MOD-sp4) 57.9 % EDV(MOD-sp2) 197.5 ml ESV(MOD-sp2) 104.2 ml EF(MOD-sp2) 47.2 % SV(MOD-sp4) 92.1 ml SI(MOD-sp4) 34.7 ml/m\S\2 SV(MOD-sp2) 93.3 ml SI(MOD-sp2) 35.1 ml/m\S\2 Doppler Measurements and Calculations MV E max dylan 75.8 cm/sec MV A max dylan 99.0 cm/sec MV E/A 0.77 MV P1/2t max dylan 74.6 cm/sec MV P1/2t 111.0 msec MVA(P1/2t) 2.0 cm\S\2 MV dec slope 197.0 cm/sec\S\2 MV dec time 0.30 sec Ao V2 max 117.1 cm/sec Ao max PG 5.5 mmHg Ao max PG (full) 2.2 mmHg LV V1 max PG 3.3 mmHg LV V1 max 91.0 cm/sec PA V2 max 112.7 cm/sec PA max PG 5.1 mmHg TR max dylan 193.5 cm/sec
--- NOTE | 2017-12-21 16:00 | Orthopedic Consultation ---
Orthopedic Consultation Date of Consultation: Dec 21, 2017. Attending Physician: Rachele Smith DO Reason for Consultation: Reason for consult is status post right wrist surgery and right hip surgery otherwise no new problems or complaints with his individual at all. History of Present Illness Patient admitted for pneumonia. Patient had an ORIF of his right wrist and ORIF of a right hip fracture. This happened about 5 weeks ago. Patient having no complaints. He is currently toe-touch weightbearing of both right upper and lower extremity. Patient reporting no pain Past Medical/Surgical History Medical Problems: (1) Altered mental status Status: Acute (2) CO2 retention Status: Acute (3) Hypoxemia Status: Acute (4) Intertrochanteric fracture of right hip Status: Acute (5) Pneumonia Status: Acute (6) Right wrist fracture Status: Acute (7) Sepsis Status: Acute Family History Diabetes mellitus Social History Smoking Status: Never Smoker Drug Use: none Marital Status: single Housing Status: lives alone Occupation Status: retired Allergies Coded Allergies: No Known Allergies (Unverified , 12/20/17) Home Medications Scheduled Ascorbic Acid (Vitamin C), 500 MG PO DAILY Atorvastatin (Lipitor), 20 MG PO HS Fish Oil ([place]-3), 1 CAP PO DAILY Gabapentin (Neurontin), 400 MG PO TID Gemfibrozil (Gemfibrozil), 600 MG PO BID Metoprolol Tartrate (Lopressor), 12.5 MG PO BID Multivitamin (Multivitamin), 1 TAB PO DAILY Nutritional Supplements (Boost), 1 CAN PO DAILY Rivaroxaban (Xarelto), 20 MG PO DAILY Scheduled PRN Acetaminophen (Mapap), 650 MG PO Q6 PRN for Pain or Fever Albuterol Sulfate (Proair Respiclick), 2 PUFFS INH Q4 PRN for SOB/Wheezing Oxycodone/Acetaminophen 5MG/325MG (Percocet 5MG/325MG), 1 TAB PO Q8H PRN for Pain Polyethylene (Miralax), 17 GM PO DAILY PRN for Constipation Current Inpatient Medications Current Inpatient Medications Medications (Trade) Dose Ordered Sig/Lacey Route Start Time Stop Time Status Last Admin Dose Admin Piperacillin Sod/ Tazobactam Sod 4.5 gm/Dextrose 120 ml @ 30 mls/hr Q8H IV 12/20/17 20:00 12/27/17 19:59 12/21/17 14:06 30 MLS/HR Miscellaneous Information (Consult) 1 ea UD PRN N/A 12/20/17 14:30 01/19/18 14:29 Acetaminophen (Tylenol Tab) 650 mg Q4H PRN PO 12/20/17 14:45 01/19/18 14:44 Al Hydrox/Mg Hydrox/Simethicone (Maalox Max Susp) 15 ml Q4H PRN PO 12/20/17 14:45 01/19/18 14:44 Magnesium Hydroxide (Milk Of Magnesia Susp) 30 ml Q12H PRN PO 12/20/17 14:45 01/19/18 14:44 Nitroglycerin (Nitrostat Tab) 0.4 mg UD PRN SL 12/20/17 14:45 01/19/18 14:44 Polyethylene (Miralax Powder Packet) 17 gm DAILY PRN PO 12/20/17 14:45 01/19/18 14:44 Ioversol (Optiray 320) 100 ml UD PRN IV 12/20/17 14:45 12/24/17 14:44 Atorvastatin Calcium (Lipitor Tab) 20 mg HS PO 12/20/17 21:00 01/19/18 20:59 12/20/17 20:43 20 MG Fish Oil ([place] Eagle-3 (Purified Fish Oil) Cap) 1 gm DAILY PO 12/21/17 09:00 01/20/18 08:59 12/21/17 09:11 1 GM Gabapentin (Neurontin Cap) 400 mg TID PO 12/20/17 21:00 01/19/18 20:59 12/21/17 14:06 400 MG Gemfibrozil (Lopid Tab) 600 mg BID PO 12/20/17 21:00 01/19/18 20:59 12/21/17 09:11 600 MG Metoprolol Tartrate (Lopressor Tab) 12.5 mg BID PO 12/20/17 21:00 01/19/18 20:59 12/21/17 09:11 12.5 MG Multivitamins (Multivitamin Tab) 1 tab DAILY PO 12/21/17 09:00 01/20/18 08:59 12/21/17 09:11 1 TAB Oxycodone/ Acetaminophen (Percocet 5-325mg Tab) 1 tab Q8H PRN PO 12/20/17 15:00 01/03/18 14:59 Albuterol (Ventolin Hfa Inhaler) 2 puffs Q4 PRN INH 12/20/17 15:00 01/19/18 14:59 Ascorbic Acid (Vitamin C Tab) 500 mg DAILY PO 12/21/17 09:00 01/20/18 08:59 12/21/17 09:10 500 MG Ipratropium Temple (Atrovent 0.02% 0.5MG/2.5ML Neb) 0.5 mg Q6R INH 12/20/17 21:00 01/19/18 20:59 12/21/17 13:48 0.5 MG Levalbuterol (Xopenex 1.25MG/ 0.5ML Neb) 1.25 mg Q6R INH 12/20/17 21:00 01/19/18 20:59 12/21/17 13:48 1.25 MG Rivaroxaban (Xarelto Tab) 20 mg QDD PO 12/20/17 17:30 01/19/18 17:29 12/20/17 18:22 20 MG Enteral Nutritional Formula (Boost) 1 can BIDM PO 12/21/17 16:45 01/20/18 16:44 Physical Exam Date Time Temp Pulse Resp B/P (MAP) Pulse Ox O2 Delivery O2 Flow Rate FiO2 12/21/17 15:45 36.9 75 18 109/67 (81) 92 Nasal Cannula 3.0 12/21/17 13:49 108 18 94 Nasal Cannula 4.0 12/21/17 12:46 Nasal Cannula 4.0 12/21/17 12:03 36.8 75 16 105/61 (76) 94 Nasal Cannula 4.0 12/21/17 08:00 Nasal Cannula 4.0 12/21/17 07:49 36.5 72 16 110/67 (81) 99 Nasal Cannula 4.0 12/21/17 07:07 84 18 96 Nasal Cannula 4.0 12/21/17 04:00 Nasal Cannula 4.0 12/21/17 03:39 36.5 71 24 93/57 (69) 93 Nasal Cannula 4.0 12/21/17 02:29 77 18 96 Nasal Cannula 4.0 12/21/17 00:00 Nasal Cannula 4.0 12/20/17 23:15 36.4 71 19 109/70 (83) 94 Nasal Cannula 4.0 12/20/17 20:52 81 18 94 Nasal Cannula 4.0 12/20/17 20:00 Nasal Cannula 4.0 12/20/17 19:53 36.6 80 20 120/71 (87) 93 Nasal Cannula 4.0 12/20/17 17:25 68 95 50 12/20/17 16:08 36.9 79 18 105/68 94 Nasal Cannula 4.0 Extremities/Musculoskelatal: + pertinent finding (brace fitting nicely on the right wrist incision is well-healed incisions on right hip well-healed in good range of motion right hip.) Laboratory Results Last 24 Hours Test 12/20/17 17:00 12/20/17 18:45 12/20/17 20:14 12/21/17 02:05 Urine Color YELLOW Urine Appearance CLEAR Urine pH 6.0 Urine Specific Renick > 1.045 Urine Protein NEG Urine Glucose (UA) NEG Urine Ketones NEG Urine Occult Blood 2+ Urine Nitrite NEG Urine Bilirubin NEG Urine Urobilinogen NEG Urine Leukocyte Esterase NEG Urine WBC (Auto) 1-5 /hpf Urine RBC (Auto) >30 /hpf Urine Hyaline Casts (Auto) 1-5 /lpf Urine Epithelial Cells (Auto) 5-10 /lpf Urine Bacteria (Auto) NEG Urine Yeast (Auto) Arterial Blood pH 7.37 Arterial Blood Partial Pressure CO2 66 mmHg Arterial Blood Partial Pressure O2 91 mm/Hg Arterial Blood HCO3 37 mmol/L Arterial Blood Oxygen Saturation 96.6 % Arterial Blood Base Excess 9.0 mEq/L Arterial Blood Gas Delivery ROOM AIR Darrell Test POS Troponin I 0.048 ng/ml 0.038 ng/ml White Blood Count 5.38 K/uL Red Blood Count 4.05 M/uL Hemoglobin 13.7 g/dL Hematocrit 45.0 % Mean Corpuscular Volume 111.1 fL Mean Corpuscular Hemoglobin 33.8 pg Mean Corpuscular Hemoglobin Concent 30.4 g/dl RDW Standard Deviation 56.3 fL RDW Coefficient of Variation 13.9 % Platelet Count 75 K/uL Mean Platelet Volume 12.6 fL Sodium Level 136 mmol/L Potassium Level 4.3 mmol/L Chloride Level 96 mmol/L Carbon Dioxide Level 39 mmol/L Anion Gap 1.0 mmol/L Blood Urea Nitrogen 20 mg/dl Creatinine 0.62 mg/dl Est Creatinine Clear Calc Drug Dose 146.5 ml/min Estimated GFR () 110.1 Estimated GFR (Non- 95.0 BUN/Creatinine Ratio 32.9 Random Glucose 108 mg/dl Calcium Level 8.5 mg/dl Phosphorus Level 2.7 mg/dl Magnesium Level 1.8 mg/dl Total Bilirubin 0.6 mg/dl Direct Bilirubin 0.2 mg/dl Aspartate Amino Transf (AST/SGOT) 35 U/L Alanine Aminotransferase (ALT/SGPT) 36 U/L Alkaline Phosphatase 203 U/L Total Protein 5.2 gm/dl Albumin 2.2 gm/dl Globulin 3.0 gm/dl Albumin/Globulin Ratio 0.7 Triglycerides Level 56 mg/dl Cholesterol Level 83 mg/dl HDL Cholesterol 39 mg/dl LDL Cholesterol, Calculated 33 mg/dl VLDL Cholesterol, Calculated 11 mg/dl Cholesterol/HDL Ratio 2.1 Test 12/21/17 08:45 12/21/17 14:16 Troponin I 0.033 ng/ml 0.030 ng/ml Assessment & Plan 1. Status post ORIF right wrist and IM nailing right hip fracture. Patient will maintain his toe-touch weightbearing of the right lower extremity and nonweightbearing of the right upper injury. He will follow-up in the office as scheduled in approximately 2 weeks. Orthopedics will sign off for now.
[2017-12-21] MEDS: BOOST VANILLA PO SCH (16:57)
[2017-12-21] MEDS: RIVAROXABAN 20 MG TAB PO SCH (16:58)
[2017-12-21] MEDS: ATORVASTATIN 20 MG TAB PO SCH (20:57)
[2017-12-22] VITALS (11 sets, daily range): BP systolic 103–136; BP diastolic 65–75; PULSE 73–98; TEMP 36.5–37; O2SAT 90–95
[2017-12-22] MEDS: LEVALBUTEROL 1.25MG/0.5ML NEB INH SCH ×4 (02:07→19:02)
[2017-12-22] MEDS: IPRATROPIUM BROMIDE NEB SOLN 0.02% 2.5 ML VIAL INH SCH ×4 (02:07→19:02)
[2017-12-22] MEDS: PIPERACILL/TAZOBAC IV 4.5 GM in DEXTROSE 5% 100ML 100 ML IV SCH ×3 (04:18→20:25)
[2017-12-22] MEDS ORDERED: VANCOMYCIN TROUGH ONE (05:30)
[2017-12-22 06:42] LABS: HEMATOCRIT 42.1 % (42-52); HEMOGLOBIN 13.2 g/dL (14.0-18.0); MEAN CELL VOLUME 109.6 fL (80-100); MEAN CORPUSCULAR HEMOGLOBIN 34.4 pg (25-34); MEAN CORPUSCULAR HGB CONC 31.4 g/dl (32-36); RED CELL DISTRIBUTION WIDTH CV 14.2 % (11.5-14.5)
[2017-12-22 06:45] LABS: MEAN PLATELET VOLUME 11.7 fL (7.4-10.4); PLATELET COUNT 74 K/uL (130-400)
[2017-12-22 07:26] LABS: ALBUMIN 2.1 gm/dl (3.4-5.0); CALCIUM 8.1 mg/dl (8.5-10.1); CREATININE 0.61 mg/dl (0.60-1.40); PHOSPHORUS 2.3 mg/dl (2.5-4.9); TOTAL PROTEIN 5.1 gm/dl (6.4-8.2)
[2017-12-22] MEDS: BOOST VANILLA PO SCH ×2 (07:40→16:51)
[2017-12-22] MEDS: ASCORBIC ACID 500 MG TAB PO SCH (07:41)
[2017-12-22] MEDS: OMEGA-3 (PURIFIED FISH OIL) 1 GM CAP PO SCH (07:41)
[2017-12-22] MEDS: METOPROLOL TARTRATE 25 MG TAB PO SCH ×2 (07:42→20:32)
[2017-12-22] MEDS: MULTIVITAMIN TAB PO SCH (07:42)
[2017-12-22] MEDS: GEMFIBROZIL 600 MG TAB PO SCH ×2 (07:42→20:31)
[2017-12-22] MEDS: GABAPENTIN 400 MG CAP PO SCH ×3 (07:42→20:33)
[2017-12-22 09:00] LABS: POTASSIUM 4.1 mmol/L (3.5-5.1)
--- NOTE | 2017-12-22 11:41 | Progress Note ---
Internal Med Progress Note Date of Service: Dec 22, 2017. Provider Documentation: SUBJECTIVE: Seen and examined at bedside Less cough with expectoration Denies chest pain, SOB, dizziness Eager to get discharged On chronic Oxygen 2L at bedtime No other complaints Patient did not tolerate BiPAP overnight OBJECTIVE: Vital Signs-as noted below Physical Exam: General Appearance:Obese, no apparent distress Head: normocephalic, Atraumatic Eyes: normal inspection, EOMI, PERRL Neck: supple, Trachea midline Respiratory/Chest: Decreased breath sounds, CTA Cardiovascular: S1, S2, No murmur Abdomen/GI:Soft, Non tender, Bowel sounds present Extremities/Musculoskelatal:normal inspection, RLE edema, RUE wrist in splint Neurologic/Psych:AAOX3, grossly no focal neurological deficits Skin: normal color, warm, RLE Hip surgical scar healing Lab data as noted below. ASSESSMENT & PLAN: Patient is a 77 yr male presented from [facility] (recovering from a recent orthopedic injury) for worsening SOB and lethargy. Patient was being treated for pneumonia with Levaquin PO as outpatient. Acute on Chronic Hypercarbic Respiratory failure HCAP Chronic Nocturnal Hypoxia: Oxygen dependency 2L at bedtime ?? H/O hemidiaphragm paralysis CTA: No PE Flu Negative Continue Oxygen support to maintain Sats 88-92% Continue Zosyn for now Blood culture: Negative Incentive Spirometry Continue BiPAP Appreciate Pulmonology Input Metabolic Encephalopathy: Likely secondary to CO2 retention Resolved Continue BIPAP Age Indeterminant RLE DVT: Continue Xarelto H/O Recent R wrist and R hip fracture s/p surgery 5 weeks ago Appreciate Ortho Input Needs rehab placement HTN controlled continue metoprolol Peripheral neuropathy continue gabapentin. Morbid obesity BMI:42.2 DVT Px: On Xarelto Code Status: DNR/DNI Disposition: Expected to return back to [facility] when medically stable Vital Signs: Date Time Temp Pulse Resp B/P (MAP) Pulse Ox O2 Delivery O2 Flow Rate FiO2 12/22/17 08:00 Nasal Cannula 4.0 12/22/17 07:39 36.8 86 26 119/72 (88) 95 12/22/17 07:19 78 18 95 Nasal Cannula 4.0 12/22/17 04:00 Nasal Cannula 4.0 12/22/17 03:18 37.0 86 21 136/73 (94) 95 Nasal Cannula 4.0 12/22/17 02:09 85 18 92 Nasal Cannula 4.0 12/22/17 00:00 Nasal Cannula 4.0 12/21/17 23:43 36.7 86 20 94/57 (69) 90 Nasal Cannula 4.0 12/21/17 20:00 Nasal Cannula 4.0 12/21/17 19:20 95 18 94 Nasal Cannula 3.0 12/21/17 16:00 Nasal Cannula 3.0 12/21/17 15:45 36.9 75 18 109/67 (81) 92 Nasal Cannula 3.0 12/21/17 13:49 108 18 94 Nasal Cannula 4.0 12/21/17 12:46 Nasal Cannula 4.0 12/21/17 12:03 36.8 75 16 105/61 (76) 94 Nasal Cannula 4.0 Lab Results: Results Past 24 Hours Test 12/21/17 14:16 12/22/17 06:16 12/22/17 08:34 Range/Units Troponin I 0.030 0-0.045 ng/ml White Blood Count 4.10 4.8-10.8 K/uL Red Blood Count 3.84 4.7-6.1 M/uL Hemoglobin 13.2 14.0-18.0 g/dL Hematocrit 42.1 42-52 % Mean Corpuscular Volume 109.6 80-100 fL Mean Corpuscular Hemoglobin 34.4 25-34 pg Mean Corpuscular Hemoglobin Concent 31.4 32-36 g/dl RDW Standard Deviation 57.0 36.4-46.3 fL RDW Coefficient of Variation 14.2 11.5-14.5 % Platelet Count 74 130-400 K/uL Mean Platelet Volume 11.7 7.4-10.4 fL Sodium Level 137 136-145 mmol/L Potassium Level 4.1 3.5-5.1 mmol/L Chloride Level 94 98-107 mmol/L Carbon Dioxide Level 44 21-32 mmol/L Anion Gap -1.0 3-11 mmol/L Blood Urea Nitrogen 16 7-18 mg/dl Creatinine 0.61 0.60-1.40 mg/dl Est Creatinine Clear Calc Drug Dose 149.5 ml/min Estimated GFR () 110.9 Estimated GFR (Non- 95.7 BUN/Creatinine Ratio 26.0 10-20 Random Glucose 106 70-99 mg/dl Calcium Level 8.1 8.5-10.1 mg/dl Phosphorus Level 2.3 2.5-4.9 mg/dl Magnesium Level 1.7 1.8-2.4 mg/dl Total Bilirubin 0.6 0.2-1 mg/dl Direct Bilirubin 0.2 0-0.2 mg/dl Aspartate Amino Transf (AST/SGOT) 38 15-37 U/L Alanine Aminotransferase (ALT/SGPT) 36 12-78 U/L Alkaline Phosphatase 180 45-117 U/L Total Protein 5.1 6.4-8.2 gm/dl Albumin 2.1 3.4-5.0 gm/dl Globulin 3.0 2.5-4.0 gm/dl Albumin/Globulin Ratio 0.7 0.9-2
--- NOTE | 2017-12-22 11:42 | PULMONARY CONSULTATION ---
DATE OF CONSULTATION: 12/22/2017 TIME: 10:30 a.m. REPORT OF CONSULTATION: The patient was seen in room 235. He is a 77-year-old male, who was admitted during this hospital stay on due to altered mental status. The patient was residing at [facility], getting rehab. He was lethargic and difficult to arouse. He had a temperature of 100 degrees. He was hypoxic and reportedly short of breath. His history is that he suffered a fall at home on or about November 14. He was hospitalized from November 14 until November 26. He had a fractured right hip and right wrist, both of which required surgery. He has been at [facility], getting rehab. The patient is not a good historian. At the time of this admission, he was found to have an elevated pCO2 level. Blood gas done on admission showed a pH of 7.32 with a pCO2 of 76 and a pO2 of 94 on 3 liters of oxygen. A few hours later on room air, the pH was 7.37 with a pCO2 of 66 and a pO2 of 91. Reportedly, the patient was treated with some BiPAP. Review of his record shows that in 2014, he was having marked orthopnea. He was evaluated. He had a sniff test done, suggesting partial paralysis at least of the left hemidiaphragm for unknown reasons. He did have a sleep study done on 12/12/2014. He had a normal apnea-hypopnea index of 0.4 and there was no sleep apnea seen. He had pulmonary functions done on 12/22/2014, which showed a mild obstructive pattern likely combined with coexistent restriction. The patient was seen by Dr. Adam at that time as an outpatient, but he was no show for followup in the following February. The patient at some point in time [facility] He claims that he was wearing his BiPAP regularly. I am told here he has been refusing BiPAP except for a brief period when he came in. The patient tells me he has a full facemask. He denies having any difficulty in terms of comfort with BiPAP. I asked him why he was not wearing it and he just indicated he did not think he needed it. He denies having significant shortness of breath. He has just a slight cough. There has been scant sputum. He denies chills, fevers or sweats. I have not seen any fever elevation since he was admitted. The patient has had imaging studies. He did have a venous Doppler of his legs done. There is an age indeterminate nonocclusive deep vein thrombosis within the right superficial femoral, popliteal and posterior tibial veins. He had been on rivaroxaban at [facility]. He had been discharged from here with rivaroxaban at 10 mg. The left lower extremity did not show a DVT. He then had a CT angio of the chest. This showed no evidence of pulmonary embolic disease. There were some secretions within the trachea. He had some lingular, right lower lobe, and left lower lobe opacities, which had increased compared with the CAT scan done in November 26. This was felt to be related to atelectasis. There is volume loss. There was some mild right middle lobe opacity, possibly suggesting pneumonia. It could also be atelectasis, however. PAST SURGICAL HISTORY: 1. Right hip and wrist surgery in October 2017. 2. Cholecystectomy. 3. Right and left knee surgeries. 4. Right ankle surgery. 5. Hernia repair in the . PAST MEDICAL HISTORY: 1. Hypertension. 2. Hyperlipidemia. 3. Obesity. 4. Gout. 5. Peripheral neuropathy. 6. Degenerative joint disease of the knees. 7. Left rib fracture in 2014. 8. Left hemidiaphragm partial paralysis. SOCIAL HISTORY: Tobacco never. ETOH -- None. ALLERGIES: No known allergies. FAMILY HISTORY: Mother age 67, lung cancer. Father with abdominal aortic aneurysm at age 68. REVIEW OF SYSTEMS: The patient is not the best historian. He states that everything was good until his fall and fracture. He is immobilized. He states he does not care for the food here. Prior to this, he states his appetite was good. Denies any bowel complaints. Denies other complaints except as noted above. Ten systems reviewed. PHYSICAL EXAMINATION: GENERAL: The patient is a 77-year-old male who was cooperative, alert and oriented. He did not appear in distress. VITAL SIGNS: The patient's BMI is listed as 42.2 with a weight of 145 kilograms. This reflects morbid obesity. Temperature is 36.8. The patient has a heart rate of 86 per minute. The rhythm is slightly irregular. It does appear to be sinus on the monitor. Blood pressure 119/72. Oxygen saturation is 95% on 4 liters. HEENT: Pupils were reactive to light. Cataract formation was noted. Nares were clear. Mouth exam showed an absence of teeth. NECK: Palpation of the neck reveals no lymph nodes. He does have a very large neck. He appears to have not shaved for a while. LUNGS: Auscultation of the lung ulloa reveals tubular breath sounds in the left lower chest posteriorly. The right chest just has some diminished breath sounds. He did not cough during the exam, not even with deep breaths. ABDOMEN: Obese. Bowel sounds were normal. There was no tenderness to palpation, masses, or organomegaly. EXTREMITIES: Reveal swelling of the right leg greater than the left leg. The right foot and ankle especially are swollen. The leg would have +2 edema and the left leg +1. LABORATORY DATA: White count on admission was 8.86. Today, it is down to 4.1. Hemoglobin on admission was 15.6 and it is down to 13.2. Platelets were 88,000 on admission and are down to 74,000. D-dimer was 1750. INR was 1.2. Urinalysis shows + blood. Bacteria was negative. There was greater than 30 RBCs per high power field. Blood gases are as noted above. Electrolytes today show sodium 137, potassium 4.1, chloride 94, and bicarbonate 44. The BUN was 16 with a creatinine of 0.61. Magnesium was 1.7. Alkaline phosphatase was elevated at 180. AST was slightly elevated at 38. ALT was 36. Albumin was 2.1 with total protein 5.1. Review of his prior records from November 14 shows the CO2 on the lights at that time was 30, so it has risen significantly to the current 44. Flu test was negative. IMPRESSIONS: 1. Respiratory failure, acute with hypoxia and hypercarbia. 2. Right middle lobe, right lower lobe, and left lower lobe atelectasis -- cannot exclude pneumonia in the right middle lobe. 3. Left hemidiaphragm paralysis. 4. Obesity hypoventilation syndrome. 5. Deep venous thrombosis of the right superficial femoral vein, popliteal, and posterior tibial -- undetermined how acute this is. 6. Thrombocytopenia and leukopenia. COMMENTS: The patient does not appear in distress. However, he has marked abnormalities on labs as noted. Review of prior records showed that he was hypoxic at least as far back as 2014 and he was having difficulty with orthopnea. He insisted that has actually improved. As noted, he has been getting his BiPAP and supplies through the [place] and the home care company was [facility]. I spoke with the patient about the need to wear the BiPAP. I explained to him that we do not believe the diaphragm is working correctly. His immobility has worsened this problem. His obesity worsens this problem. Unfortunately, he still cannot bear any weight. The patient himself does not even transfer out of a bed. RECOMMENDATIONS: 1. BiPAP at bedtime -- I will reorder this and the patient tells me he will wear it. 2. We need to decrease his oxygen to try and stimulate ventilation. We will write to keep the saturations between 88% and 92%. 3. We will order incentive spirometry. 4. I agree with Jermaine for the antibiotic as well as the nebulizer treatments. 5. He needs to be on rivaroxaban for a total of at least 6 months.
[2017-12-22] MEDS ORDERED: MAGNESIUM SULFATE 1GM / D5W 1 GM in PREMIXED IN D5W 100 ML IV SCH (11:45)
[2017-12-22] MEDS: RIVAROXABAN 20 MG TAB PO SCH (15:55)
[2017-12-22] MEDS: ATORVASTATIN 20 MG TAB PO SCH (20:31)
[2017-12-23] VITALS (15 sets, daily range): BP systolic 108–135; BP diastolic 59–84; PULSE 69–87; TEMP 36.2–37; O2SAT 89–97
[2017-12-23] MEDS: LEVALBUTEROL 1.25MG/0.5ML NEB INH SCH ×2 (01:25→06:59)
[2017-12-23] MEDS: IPRATROPIUM BROMIDE NEB SOLN 0.02% 2.5 ML VIAL INH SCH ×2 (01:25→06:59)
[2017-12-23] MEDS: PIPERACILL/TAZOBAC IV 4.5 GM in DEXTROSE 5% 100ML 100 ML IV SCH ×3 (04:28→20:21)
[2017-12-23 07:11] LABS: HEMATOCRIT 43.9 % (42-52); HEMOGLOBIN 13.9 g/dL (14.0-18.0); MEAN CELL VOLUME 107.1 fL (80-100); MEAN CORPUSCULAR HEMOGLOBIN 33.9 pg (25-34); MEAN CORPUSCULAR HGB CONC 31.7 g/dl (32-36); PLATELET COUNT 78 K/uL (130-400); RED CELL DISTRIBUTION WIDTH CV 14.4 % (11.5-14.5); RED CELL DISTRIBUTION WIDTH SD 56.7 fL (36.4-46.3); WHITE BLOOD COUNT 3.13 K/uL (4.8-10.8)
[2017-12-23 07:48] LABS: ALBUMIN 2.2 gm/dl (3.4-5.0); CALCIUM 8.4 mg/dl (8.5-10.1); CREATININE 0.51 mg/dl (0.60-1.40); POTASSIUM 4.2 mmol/L (3.5-5.1)
[2017-12-23] MEDS: BOOST VANILLA PO SCH ×2 (07:48→16:45)
[2017-12-23 07:50] LABS: PHOSPHORUS 2.3 mg/dl (2.5-4.9); TOTAL PROTEIN 5.3 gm/dl (6.4-8.2)
[2017-12-23] MEDS: OMEGA-3 (PURIFIED FISH OIL) 1 GM CAP PO SCH (07:59)
[2017-12-23] MEDS: ASCORBIC ACID 500 MG TAB PO SCH (08:00)
[2017-12-23] MEDS: MULTIVITAMIN TAB PO SCH (08:00)
[2017-12-23] MEDS: GABAPENTIN 400 MG CAP PO SCH ×3 (08:00→20:21)
[2017-12-23] MEDS: METOPROLOL TARTRATE 25 MG TAB PO SCH ×2 (08:00→20:22)
[2017-12-23] MEDS: GEMFIBROZIL 600 MG TAB PO SCH ×2 (08:00→20:22)
[2017-12-23] MEDS: LEValbuterol HFA 15GM INHALER INH SCH ×2 (11:13→17:58)
[2017-12-23] MEDS: IPRATROPIUM BROMIDE HFA INHALER INH SCH ×2 (11:13→17:57)
--- NOTE | 2017-12-23 12:48 | Progress Note ---
Internal Med Progress Note Date of Service: Dec 23, 2017. Provider Documentation: SUBJECTIVE: Seen and examined at bedside Feels well Overall Minimal cough Denies chest pain, SOB, dizziness Eager to get discharged Family at bedside No other complaints Used BiPAP overnight as recommended OBJECTIVE: Vital Signs-as noted below Physical Exam: General Appearance:Obese, no apparent distress Head: normocephalic, Atraumatic Eyes: normal inspection, EOMI, PERRL Neck: supple, Trachea midline Respiratory/Chest: Decreased breath sounds, CTA Cardiovascular: S1, S2, No murmur Abdomen/GI:Soft, Non tender, Bowel sounds present Extremities/Musculoskelatal:normal inspection, RLE edema, RUE wrist in splint Neurologic/Psych:AAOX3, grossly no focal neurological deficits Skin: normal color, warm, RLE Hip surgical scar healing Lab data as noted below. ASSESSMENT & PLAN: Patient is a 77 yr male presented from [facility] (recovering from a recent orthopedic injury) for worsening SOB and lethargy. Patient was being treated for pneumonia with Levaquin PO as outpatient. Acute on Chronic Hypercarbic/Hypoxic Respiratory failure HCAP Chronic Nocturnal Hypoxia: Oxygen dependency 2L at bedtime H/O Left hemidiaphragm paralysis Obesity Hypoventilation Syndrome CTA: No PE Flu Negative Wean Oxygen to maintain Sats 88-92% Continue Zosyn Blood culture: Negative Incentive Spirometry Continue BiPAP as per Pulmonary recommendations Appreciate Pulmonology Input Bicarb levels improving Metabolic Encephalopathy: Likely secondary to CO2 retention Resolved Continue BIPAP Age Indeterminant RLE DVT: Continue Xarelto for atleast 6 months H/O Recent R wrist and R hip fracture s/p surgery 5 weeks ago Appreciate Ortho Input Needs rehab placement HTN controlled continue metoprolol Chronic Thrombocytopenia: Patient aware Monitor No bleeding issues Peripheral neuropathy continue gabapentin. Morbid obesity BMI:42.2 DVT Px: On Xarelto Code Status: DNR/DNI Disposition: Expected to return back to [facility] when medically stable Vital Signs: Date Time Temp Pulse Resp B/P (MAP) Pulse Ox O2 Delivery O2 Flow Rate FiO2 12/23/17 12:00 Nasal Cannula 2.0 12/23/17 11:42 37.0 69 18 110/59 (76) 96 12/23/17 08:00 Nasal Cannula 2.0 12/23/17 07:40 36.8 79 20 108/68 (81) 92 12/23/17 06:59 79 18 93 Nasal Cannula 2.0 12/23/17 04:00 90 BiPAP 2.0 50 12/23/17 03:44 37.0 22 124/80 (95) 90 BiPAP 12/23/17 01:25 82 18 93 BiPAP/CPAP 2.0 12/23/17 01:25 82 93 2.0 12/23/17 00:01 92 BiPAP 2.0 50 12/22/17 23:44 73 92 2.0 12/22/17 23:23 36.9 81 20 123/66 (85) 91 Nasal Cannula 4.0 12/22/17 20:14 36.8 87 19 125/75 (92) 90 Nasal Cannula 2.0 12/22/17 20:00 Nasal Cannula 2.0 12/22/17 19:02 98 18 93 Nasal Cannula 2.0 12/22/17 16:00 Nasal Cannula 2.0 12/22/17 15:17 36.8 84 19 103/65 (78) 91 Nasal Cannula 1.0 12/22/17 14:11 78 18 95 Nasal Cannula 1.0 Lab Results: Results Past 24 Hours Test 12/23/17 06:11 Range/Units White Blood Count 3.13 4.8-10.8 K/uL Red Blood Count 4.10 4.7-6.1 M/uL Hemoglobin 13.9 14.0-18.0 g/dL Hematocrit 43.9 42-52 % Mean Corpuscular Volume 107.1 80-100 fL Mean Corpuscular Hemoglobin 33.9 25-34 pg Mean Corpuscular Hemoglobin Concent 31.7 32-36 g/dl RDW Standard Deviation 56.7 36.4-46.3 fL RDW Coefficient of Variation 14.4 11.5-14.5 % Platelet Count 78 130-400 K/uL Mean Platelet Volume 12.0 7.4-10.4 fL Sodium Level 136 136-145 mmol/L Potassium Level 4.2 3.5-5.1 mmol/L Chloride Level 94 98-107 mmol/L Carbon Dioxide Level 38 21-32 mmol/L Anion Gap 4.0 3-11 mmol/L Blood Urea Nitrogen 14 7-18 mg/dl Creatinine 0.51 0.60-1.40 mg/dl Est Creatinine Clear Calc Drug Dose 179.9 ml/min Estimated GFR () 119.3 Estimated GFR (Non- 103.0 BUN/Creatinine Ratio 27.9 10-20 Random Glucose 89 70-99 mg/dl Calcium Level 8.4 8.5-10.1 mg/dl Phosphorus Level 2.3 2.5-4.9 mg/dl Magnesium Level 1.8 1.8-2.4 mg/dl Total Bilirubin 0.6 0.2-1 mg/dl Direct Bilirubin 0.2 0-0.2 mg/dl Aspartate Amino Transf (AST/SGOT) 41 15-37 U/L Alanine Aminotransferase (ALT/SGPT) 37 12-78 U/L Alkaline Phosphatase 185 45-117 U/L Total Protein 5.3 6.4-8.2 gm/dl Albumin 2.2 3.4-5.0 gm/dl Globulin 3.1 2.5-4.0 gm/dl Albumin/Globulin Ratio 0.7 0.9-2
--- NOTE | 2017-12-23 15:47 | PULMONARY PROGRESS NOTE ---
DATE: 12/23/2017 TIME: 3:25 p.m. SUBJECTIVE: The patient denies shortness of breath. He did wear his BiPAP last night. He complained that the BiPAP was on too tightly. Otherwise, he did well. He is now on room air. We have been trying to keep his saturations a little lower than it had been before in order to stimulate ventilation. He denies any cough. The patient remains anxious for discharge. OBJECTIVE: GENERAL: The patient was in no distress. Temperature is 37 degrees. EARS, NOSE, THROAT: Exam is unchanged from yesterday. VITAL SIGNS: Heart rate is 69 per minute. Blood pressure is 110/59. The rhythm is regular. LUNGS: Lung ulloa revealed decreased breath sounds bilaterally. No active wheezing, rales or rhonchi were heard. The respiratory rate is 18 breaths per minute. Saturation on room air was 88%. ABDOMEN: Remains obese. It was soft and nontender. EXTREMITIES: Reveals edema of both lower extremities. ASSESSMENT: 1. Acute respiratory failure with hypoxia and hypercarbia -- improved. 2. Right middle lobe and right lower lobe, left lower lobe atelectasis with questionable right middle lobe pneumonia. 3. Left diaphragm partially paralyzed. 4. Obesity hypoventilation syndrome. Deep venous thrombosis in the right leg involving superficial femoral, popliteal, and posterior tibial. COMMENTS AND RECOMMENDATIONS: I advised the patient to wear his BiPAP again tonight. I explained to him how important it is. Review of his labs from today shows that his CO2 on the electrolytes was 38 and it previously was 44. He has incentive spirometry that he claims to be able to get up to 1200. I could not have him do incentive at the time of this exam because he was having a large life saver in his mouth. Nursing was alerted to make sure that he was doing his incentive properly. It appears he was changed to levalbuterol and Atrovent by inhalers. Hopefully, he is doing them correctly. He remains on the Zosyn. I would not have a problem switching that over to Augmentin if desired.
[2017-12-23] MEDS: RIVAROXABAN 20 MG TAB PO SCH (17:57)
[2017-12-23] MEDS: ATORVASTATIN 20 MG TAB PO SCH (20:22)
[2017-12-24] VITALS (11 sets, daily range): BP systolic 113–151; BP diastolic 69–84; PULSE 67–93; TEMP 36.3–36.6; O2SAT 89–97
[2017-12-24] MEDS: PIPERACILL/TAZOBAC IV 4.5 GM in DEXTROSE 5% 100ML 100 ML IV SCH (04:15)
[2017-12-24] MEDS: IPRATROPIUM BROMIDE HFA INHALER INH SCH ×5 (06:38→23:50)
[2017-12-24] MEDS: LEValbuterol HFA 15GM INHALER INH SCH ×5 (06:39→23:50)
[2017-12-24 06:54] LABS: HEMATOCRIT 44.9 % (42-52); HEMOGLOBIN 14.3 g/dL (14.0-18.0); MEAN CELL VOLUME 106.7 fL (80-100); MEAN CORPUSCULAR HGB CONC 31.8 g/dl (32-36); PLATELET COUNT 82 K/uL (130-400); RED CELL DISTRIBUTION WIDTH CV 14.5 % (11.5-14.5); RED CELL DISTRIBUTION WIDTH SD 56.5 fL (36.4-46.3); WHITE BLOOD COUNT 3.43 K/uL (4.8-10.8)
[2017-12-24 07:22] LABS: CALCIUM 8.5 mg/dl (8.5-10.1); CREATININE 0.51 mg/dl (0.60-1.40); POTASSIUM 4.1 mmol/L (3.5-5.1)
[2017-12-24] MEDS: BOOST VANILLA PO SCH ×2 (07:30→16:45)
[2017-12-24] MEDS: ASCORBIC ACID 500 MG TAB PO SCH (08:30)
[2017-12-24] MEDS: GEMFIBROZIL 600 MG TAB PO SCH ×2 (08:30→20:45)
[2017-12-24] MEDS: OMEGA-3 (PURIFIED FISH OIL) 1 GM CAP PO SCH (08:30)
[2017-12-24] MEDS: METOPROLOL TARTRATE 25 MG TAB PO SCH ×2 (08:30→20:45)
[2017-12-24] MEDS: GABAPENTIN 400 MG CAP PO SCH ×3 (08:30→20:46)
[2017-12-24] MEDS: MULTIVITAMIN TAB PO SCH (08:30)
--- NOTE | 2017-12-24 11:19 | PULMONARY PROGRESS NOTE ---
DATE: 12/24/2017 TIME: 11:00 a.m. SUBJECTIVE: The patient states he feels the same. Nursing staff; however, reports that he has been requiring more oxygen. He did wear BiPAP overnight. The patient apparently had asked to have the BiPAP on somewhat this morning. The staff did offer to get him out of bed, but he refused. He is not allowed to weightbear. Yesterday, his oxygen had gotten down to 1 liter, but this morning it has been up to 4 liters. OBJECTIVE: GENERAL: The patient looks about the same. He did not appear in acute distress. He was sleeping when I came in. He tells me that he sleeps more during the day than he does at night. VITAL SIGNS: Temperature is 36.3. HEART: The heart rate is 76 per minute. The rhythm is regular. Blood pressure is 151/83. LUNGS: Lung ulloa revealed diminished breath sounds bilaterally. No wheezing was heard. He was on 4 liters of oxygen and his saturation taken by myself was 94%. EXTREMITIES: Show edema in both lower extremities. I believe the right-sided edema may be improved compared with prior. LABORATORY DATA: White count today is 3.43. It remains low. Hemoglobin is 14.3. Platelets 82,000, which remains low. Electrolytes show sodium 138, potassium 4.1, chloride 95, and bicarbonate 39. BUN is 15 with a creatinine of 0.51. ASSESSMENT: 1. Acute respiratory failure with hypoxia and hypercarbia. 2. Right middle lobe, right lower lobe and left lower lobe atelectasis with possible right middle lobe pneumonia. 3. Left diaphragm partial paralysis. 4. Obesity hypoventilation syndrome. 5. Deep venous thrombosis on the right. COMMENTS AND RECOMMENDATIONS: The patient has been more cooperative, wearing the BiPAP. He seems to understand better that he must do this. Nonetheless, his saturations were a little bit lower. We will continue to keep the sats between 88 and 92 in hopes of stimulating ventilation. I am going to recheck a chest x-ray and a blood gas in light of the need for the increased oxygen. He was switched from nebulizer treatments to inhalers yesterday. It is possible he is not doing as well due to that change. We will continue to monitor this.
--- NOTE | 2017-12-24 11:21 | Progress Note ---
Internal Med Progress Note Date of Service: Dec 24, 2017. Provider Documentation: SUBJECTIVE: Seen and examined at bedside No new complaints Minimal cough Denies chest pain, SOB, dizziness Eager to get discharged Family at bedside No other complaints Used BiPAP overnight as recommended Has been requiring more oxygen to maintain sats, Will get CXR, ABG OBJECTIVE: Vital Signs-as noted below Physical Exam: General Appearance:Obese, no apparent distress Head: normocephalic, Atraumatic Eyes: normal inspection, EOMI, PERRL Neck: supple, Trachea midline Respiratory/Chest: Decreased breath sounds, CTA Cardiovascular: S1, S2, No murmur Abdomen/GI:Soft, Non tender, Bowel sounds present Extremities/Musculoskelatal:normal inspection, RLE edema, RUE wrist in splint Neurologic/Psych:AAOX3, grossly no focal neurological deficits Skin: normal color, warm, RLE Hip surgical scar healing Lab data as noted below. ASSESSMENT & PLAN: Patient is a 77 yr male presented from [facility] (recovering from a recent orthopedic injury) for worsening SOB and lethargy. Patient was being treated for pneumonia with Levaquin PO as outpatient. Acute on Chronic Hypercarbic/Hypoxic Respiratory failure HCAP Chronic Nocturnal Hypoxia: Oxygen dependency 2L at bedtime H/O Left hemidiaphragm paralysis Obesity Hypoventilation Syndrome CTA: No PE Flu Negative Wean Oxygen to maintain Sats 88-92% Continue Zosyn >>>>Augmentin Blood culture: Negative Incentive Spirometry Continue BiPAP as per Pulmonary recommendations Appreciate Pulmonology Input Bicarb levels better Will get CXR and ABG today Appreciate Pulmonology Input Metabolic Encephalopathy: Likely secondary to CO2 retention Resolved Continue BIPAP Age Indeterminant RLE DVT: Continue Xarelto for atleast 6 months H/O Recent R wrist and R hip fracture s/p surgery 5 weeks ago Appreciate Ortho Input Needs rehab placement HTN controlled continue metoprolol Chronic Thrombocytopenia: Patient aware Monitor No bleeding issues Peripheral neuropathy continue gabapentin. Morbid obesity BMI:42.2 DVT Px: On Xarelto Code Status: DNR/DNI Disposition: Expected to return back to [facility] when medically stable Vital Signs: Date Time Temp Pulse Resp B/P (MAP) Pulse Ox O2 Delivery O2 Flow Rate FiO2 12/24/17 08:00 92 Nasal Cannula 4.0 12/24/17 07:18 36.3 80 16 151/83 (105) 89 Nasal Cannula 4.0 12/24/17 04:15 36.5 84 20 122/75 (91) 94 BiPAP 12/24/17 04:00 94 Room Air 12/24/17 04:00 94 Room Air 12/23/17 23:59 90 Room Air 12/23/17 23:40 37.0 79 20 131/76 (94) 90 BiPAP 12/23/17 22:19 79 97 2.0 12/23/17 20:23 36.7 87 123/77 (92) 89 Room Air 12/23/17 20:00 91 Nasal Cannula 3.0 12/23/17 19:24 36.2 86 20 135/84 (101) 92 Nasal Cannula 3.0 12/23/17 16:00 90 Room Air 12/23/17 15:49 37.0 85 20 113/72 (86) 90 Nasal Cannula 12/23/17 12:00 Nasal Cannula 2.0 12/23/17 11:42 37.0 69 18 110/59 (76) 96 Lab Results: Results Past 24 Hours Test 12/24/17 06:09 Range/Units White Blood Count 3.43 4.8-10.8 K/uL Red Blood Count 4.21 4.7-6.1 M/uL Hemoglobin 14.3 14.0-18.0 g/dL Hematocrit 44.9 42-52 % Mean Corpuscular Volume 106.7 80-100 fL Mean Corpuscular Hemoglobin 34.0 25-34 pg Mean Corpuscular Hemoglobin Concent 31.8 32-36 g/dl RDW Standard Deviation 56.5 36.4-46.3 fL RDW Coefficient of Variation 14.5 11.5-14.5 % Platelet Count 82 130-400 K/uL Mean Platelet Volume 12.0 7.4-10.4 fL Sodium Level 138 136-145 mmol/L Potassium Level 4.1 3.5-5.1 mmol/L Chloride Level 95 98-107 mmol/L Carbon Dioxide Level 39 21-32 mmol/L Anion Gap 4.0 3-11 mmol/L Blood Urea Nitrogen 15 7-18 mg/dl Creatinine 0.51 0.60-1.40 mg/dl Est Creatinine Clear Calc Drug Dose 178.5 ml/min Estimated GFR () 119.3 Estimated GFR (Non- 103.0 BUN/Creatinine Ratio 29.6 10-20 Random Glucose 104 70-99 mg/dl Calcium Level 8.5 8.5-10.1 mg/dl Magnesium Level 1.9 1.8-2.4 mg/dl
--- NOTE | 2017-12-24 11:42 | DIAGNOSTIC IMAGING REPORT ---
CHEST ONE VIEW PORTABLE CLINICAL HISTORY: f/u on lung infiltrates pneumonia COMPARISON STUDY: 12/20/2017 FINDINGS: Moderate stable cardiomegaly. Improved aeration left lung base with diminished infiltrative change. Residual small bilateral pleural effusions and/or basilar atelectatic change. Prominent pulmonary vasculature improved from the prior study. IMPRESSION: Improved exam with a decrease in left lung parenchymal infiltrative change. Bibasilar residual pleural thickening versus pleural fluid. The above report was generated using voice recognition software. It may contain grammatical, syntax or spelling errors. Electronically signed by: Jasbir Walter M.D. 12/24/2017 11:40 AM Dictated Date/Time: 12/24/2017 11:39 AM
[2017-12-24] MEDS: AMOXICILLIN/CLAVULANATE TAB 875 MG TAB PO SCH ×2 (12:48→17:32)
[2017-12-24] MEDS: RIVAROXABAN 20 MG TAB PO SCH (17:32)
[2017-12-24] MEDS: ATORVASTATIN 20 MG TAB PO SCH (20:45)
[2017-12-25 04:00] VITALS: O2SAT 90
[2017-12-25 04:15] VITALS: BP 127/82; PULSE 87; TEMP 36.8; O2SAT 90
[2017-12-25] MEDS: LEValbuterol HFA 15GM INHALER INH SCH ×2 (06:20→11:53)
[2017-12-25] MEDS: IPRATROPIUM BROMIDE HFA INHALER INH SCH ×2 (06:21→11:53)
[2017-12-25 06:36] LABS: HEMATOCRIT 45.4 % (42-52); HEMOGLOBIN 14.5 g/dL (14.0-18.0); MEAN CELL VOLUME 107.3 fL (80-100); MEAN CORPUSCULAR HEMOGLOBIN 34.3 pg (25-34); MEAN CORPUSCULAR HGB CONC 31.9 g/dl (32-36); RED CELL DISTRIBUTION WIDTH CV 14.4 % (11.5-14.5); RED CELL DISTRIBUTION WIDTH SD 56.4 fL (36.4-46.3); WHITE BLOOD COUNT 4.32 K/uL (4.8-10.8)
[2017-12-25 07:04] LABS: MEAN PLATELET VOLUME 11.1 fL (7.4-10.4); PLATELET COUNT 78 K/uL (130-400)
[2017-12-25 07:13] LABS: CALCIUM 8.7 mg/dl (8.5-10.1); CREATININE 0.6 mg/dl (0.60-1.40); POTASSIUM 4.3 mmol/L (3.5-5.1)
[2017-12-25 08:00] VITALS: BP 116/71; PULSE 83; TEMP 36.5; O2SAT 91
[2017-12-25] MEDS: AMOXICILLIN/CLAVULANATE TAB 875 MG TAB PO SCH (08:19)
[2017-12-25] MEDS: OMEGA-3 (PURIFIED FISH OIL) 1 GM CAP PO SCH (08:20)
[2017-12-25] MEDS: BOOST VANILLA PO SCH (08:20)
[2017-12-25] MEDS: METOPROLOL TARTRATE 25 MG TAB PO SCH (08:21)
[2017-12-25] MEDS: GEMFIBROZIL 600 MG TAB PO SCH (08:22)
[2017-12-25] MEDS: MULTIVITAMIN TAB PO SCH (08:22)
[2017-12-25] MEDS: ASCORBIC ACID 500 MG TAB PO SCH (08:22)
[2017-12-25] MEDS: GABAPENTIN 400 MG CAP PO SCH ×2 (08:22→13:31)
[2017-12-25 11:33] VITALS: BP 118/77; PULSE 79; TEMP 37.2; O2SAT 93
[2017-12-25 12:05] VITALS: O2SAT 91
--- NOTE | 2017-12-25 12:12 | Progress Note ---
Internal Med Progress Note Date of Service: Dec 25, 2017. Provider Documentation: SUBJECTIVE: Seen and examined at bedside Doing well today No new complaints Denies chest pain, SOB, dizziness Eager to get discharged Family at bedside OBJECTIVE: Vital Signs-as noted below Physical Exam: General Appearance:Obese, no apparent distress Head: normocephalic, Atraumatic Eyes: normal inspection, EOMI, PERRL Neck: supple, Trachea midline Respiratory/Chest: Decreased breath sounds, CTA Cardiovascular: S1, S2, No murmur Abdomen/GI:Soft, Non tender, Bowel sounds present Extremities/Musculoskelatal:normal inspection, RLE edema, RUE wrist in splint Neurologic/Psych:AAOX3, grossly no focal neurological deficits Skin: normal color, warm, RLE Hip surgical scar healing Lab data as noted below. ASSESSMENT & PLAN: Patient is a 77 yr male presented from [facility] (recovering from a recent orthopedic injury) for worsening SOB and lethargy. Patient was being treated for pneumonia with Levaquin PO as outpatient. Acute on Chronic Hypercarbic/Hypoxic Respiratory failure HCAP Chronic Nocturnal Hypoxia: Oxygen dependency 2L at bedtime H/O Left hemidiaphragm paralysis Obesity Hypoventilation Syndrome CTA: No PE Flu Negative Wean Oxygen to maintain Sats 88-92% Continue Zosyn >>>>Augmentin Day 2 Blood culture: Negative Incentive Spirometry Continue BiPAP as per Pulmonary recommendations Appreciate Pulmonology Input Bicarb levels better Repeat CXR: Improved left lung parenchymal infiltrative change Appreciate Pulmonology Input Metabolic Encephalopathy: Likely secondary to CO2 retention Resolved Continue BIPAP Age Indeterminant RLE DVT: Continue Xarelto for atleast 6 months H/O Recent R wrist and R hip fracture s/p surgery 5 weeks ago Appreciate Ortho Input Needs rehab placement HTN controlled continue metoprolol Chronic Thrombocytopenia: Patient aware Monitor No bleeding issues Peripheral neuropathy continue gabapentin. Morbid obesity BMI:42.2 DVT Px: On Xarelto Code Status: DNR/DNI Disposition: Plan to discharge to [facility] today Follow up with your PCP in 1 week after discharge from Rehab facility Follow up with your Orthopedic surgeon in 1 week as advised Follow up with your [facility] in 2 weeks Continue Xarelto for at least 6 months and discuss with your doctor for further recommendations Complete the antibiotic course as prescribed Seek immediate medical attention if your symptoms reoccur or worsen Use BiPAP regularly as advised Vital Signs: Date Time Temp Pulse Resp B/P (MAP) Pulse Ox O2 Delivery O2 Flow Rate FiO2 12/25/17 11:33 37.2 79 20 118/77 (91) 93 Nasal Cannula 2.0 12/25/17 08:00 36.5 83 20 116/71 (86) 91 12/25/17 08:00 91 Nasal Cannula 3.0 50 12/25/17 04:15 36.8 87 20 127/82 (97) 90 BiPAP 12/25/17 04:00 90 BiPAP 12/25/17 00:00 BiPAP 12/24/17 23:28 36.6 76 20 128/79 (95) 91 BiPAP 12/24/17 22:08 77 97 3.0 12/24/17 20:42 93 118/72 (87) 12/24/17 20:00 92 Nasal Cannula 3.0 12/24/17 20:00 92 Nasal Cannula 3.0 12/24/17 16:00 92 Nasal Cannula 3.0 12/24/17 15:33 36.6 67 20 113/69 (84) 92 Nasal Cannula 3.0 Lab Results: Results Past 24 Hours Test 12/24/17 13:10 12/25/17 06:25 Range/Units Arterial Blood pH 7.36 7.35-7.45 Arterial Blood Partial Pressure CO2 70 35-46 mmHg Arterial Blood Partial Pressure O2 77 80-95 mm/Hg Arterial Blood HCO3 39 19-24 mmol/L Arterial Blood Oxygen Saturation 94.4 90-95 % Arterial Blood Base Excess 10.5 -9-1.8 mEq/L Arterial Blood Gas Delivery 3L Darrell Test POS POS White Blood Count 4.32 4.8-10.8 K/uL Red Blood Count 4.23 4.7-6.1 M/uL Hemoglobin 14.5 14.0-18.0 g/dL Hematocrit 45.4 42-52 % Mean Corpuscular Volume 107.3 80-100 fL Mean Corpuscular Hemoglobin 34.3 25-34 pg Mean Corpuscular Hemoglobin Concent 31.9 32-36 g/dl RDW Standard Deviation 56.4 36.4-46.3 fL RDW Coefficient of Variation 14.4 11.5-14.5 % Platelet Count 78 130-400 K/uL Mean Platelet Volume 11.1 7.4-10.4 fL Sodium Level 138 136-145 mmol/L Potassium Level 4.3 3.5-5.1 mmol/L Chloride Level 97 98-107 mmol/L Carbon Dioxide Level 38 21-32 mmol/L Anion Gap 4.0 3-11 mmol/L Blood Urea Nitrogen 15 7-18 mg/dl Creatinine 0.60 0.60-1.40 mg/dl Est Creatinine Clear Calc Drug Dose 151.5 ml/min Estimated GFR () 111.6 Estimated GFR (Non- 96.3 BUN/Creatinine Ratio 25.6 10-20 Random Glucose 109 70-99 mg/dl Calcium Level 8.7 8.5-10.1 mg/dl Magnesium Level 1.9 1.8-2.4 mg/dl
--- NOTE | 2017-12-25 12:14 | PULMONARY PROGRESS NOTE ---
DATE: 12/25/2017 TIME: 11:40 a.m. SUBJECTIVE: The patient denies any shortness of breath or cough. He says he feels good. He is very [facility]. His daughter was present during this evaluation. He reportedly did wear his BiPAP last night. The patient and his daughter tell me that the BiPAP, which was his and was used at the [facility], they feel that someone at the home may have changed the pressures because they did not understand what they were doing. I explained to them that they would have to bring that up with either the home care company that provided the machine or with the [facility] itself. OBJECTIVE: GENERAL: The patient appears comfortable. VITAL SIGNS: Temperature today is 37.2. This is slightly elevated and it is the first fever in at least 5 days. He looked comfortable. He did not show any signs of respiratory distress. HEART: Rate is 80 per minute. Blood pressure is 118/77. LUNGS: Auscultation reveals decreased breath sounds at both bases. No wheezing or rales were heard. Saturation was 93% on 2 liters. EXTREMITIES: Show +2 edema of both the lower extremities. His daughter states that the patient usually has no swelling at all. LABORATORY DATA: We did a blood gas yesterday. This showed a pH of 7.36 with a pCO2 of 70 and a pO2 of 77 on 3 liters. This would imply that his baseline pCO2 is approximately 65-70. CBC today shows a white count of 4.32. Hemoglobin 14.5. Platelets 78,000. Dr. Lockhart confirmed that the low platelets are chronic. Electrolytes show sodium 138, potassium 4.3, chloride 97, bicarbonate 38. BUN was 15 with a creatinine of 0.6. Chest x-ray done yesterday showed a decrease in the left lung parenchymal infiltrate. Bibasilar changes were present consistent with his known partial diaphragm paralysis on the left along with some atelectasis or effusion. IMPRESSIONS: 1. Acute respiratory failure with hypoxia and hypercarbia. 2. Right middle lobe pneumonia. 3. Right middle lobe, right lower lobe and left lower lobe atelectasis. 4. Left diaphragm partial paralysis. 5. Obesity hypoventilation syndrome. 6. Deep venous thrombosis of the right leg, undetermined age. COMMENTS AND RECOMMENDATIONS: The patient appears to be stable. At this time, I have no objection to him being discharged to the [facility]. He should have his BiPAP machine checked and make sure the pressures are set appropriately. We do not know for sure what his pressures were set at. We have been giving him 08/06 here. I would send him home on some Augmentin for about 5 more days. The patient was strongly encouraged to wear the BiPAP every night because of his issues with CO2 retention. At the [facility], they should continue to keep his oxygen levels between 88% and 92% and they should avoid giving excessively high oxygen levels.
[2017-12-25] MEDS ORDERED: OXYC-57 PO (12:17)
[2017-12-25] MEDS ORDERED: AMOX1TAB43 PO (12:17)
[2017-12-25 12:22] VITALS: BP 118/77; PULSE 79; TEMP 37.2; O2SAT 91
--- NOTE | 2017-12-25 12:22 | Discharge Summary ---
Discharge Summary Date of Service Dec 25, 2017. Discharge Summary Admission Date: Dec 20, 2017 at 14:16 Discharge Date: Dec 25, 2017 Discharge Disposition: Rehab Principal Diagnosis: Acute respiratory failure, Pneumonia, Metabolic Encephalopathy Procedures: CTA: 1. No pulmonary emboli identified although segmental and subsegmental pulmonary arteries suboptimally assessed due to respiratory motion. 2. Moderate bilateral lower lobe and lingular opacities which favor atelectasis. Pneumonia could appear similar. 3. Mild right middle lobe airspace opacity which favors bronchopneumonia. 4. Moderate cardiomegaly. Moderate coronary artery calcification. Venous Doppler: 1. Age indeterminate nonocclusive deep venous thrombus within the right superficial femoral, popliteal and posterior tibial veins. 2. No deep venous thrombus within the left lower extremity. ECHO: n Conclusions -- n Normal LV chamber size with mild concentric LVH. n Normal LV systolic function, EF 55-60%. n No segmental left ventricular wall motion abnormalities are noted. n Grade I diastolic dysfunction. n No significant valvular pathology. Consultations: Pulmonology, Orthopedics Pending Studies/Follow-Up: Follow up with your PCP in 1 week after discharge from Rehab facility Follow up with your Orthopedic surgeon in 1 week as advised Follow up with your Survey Analyst in 2 weeks Continue Xarelto for at least 6 months and discuss with your doctor for further recommendations Complete the antibiotic course as prescribed Seek immediate medical attention if your symptoms reoccur or worsen Use BiPAP regularly as advised Medication Reconciliation New Medications: Amoxicillin & Pot Clavulanate (Amoxicillin/Clavulanate P) 1 Tab Tab 875 MG PO BIDM for 4 Days, #8 TAB Continued Medications: Acetaminophen (Mapap) 325 Mg Tab 650 MG PO Q6 PRN for Pain or Fever for 7 Days, #56 TAB Albuterol Sulfate (Proair Respiclick) 108 Mcg/Act Aer 2 PUFFS INH Q4 PRN for SOB/Wheezing Ascorbic Acid (Vitamin C) 500 Mg Cap 500 MG PO DAILY Atorvastatin (Lipitor) 40 Mg Tab 20 MG PO HS, TAB Fish Oil (Ravena-3) 1 Ea Cap 1 CAP PO DAILY, CAP Gabapentin (Neurontin) 100 Mg Cap 400 MG PO TID, CAP Gemfibrozil (Gemfibrozil) 600 Mg Tab 600 MG PO BID, #180 Metoprolol Tartrate (Lopressor) 25 Mg Tab 12.5 MG PO BID for 30 Days, TAB 2 Refills Multivitamin (Multivitamin) Tab 1 TAB PO DAILY, TAB Nutritional Supplements (Boost) 1 Liq Liq 1 CAN PO DAILY Oxycodone/Acetaminophen 5MG/325MG (Percocet 5MG/325MG) Tab 1 TAB PO Q8H PRN for Pain for 3 Days, #10 TAB (This prescription has been renewed) Hold for drowsiness and lethargy Polyethylene (Miralax) 17 Gm Pow 17 GM PO DAILY PRN for Constipation for 30 Days Rivaroxaban (Xarelto) 10 Mg Tab 20 MG PO DAILY, #30 TAB for 4 weeks for dvt prophylaxis last dose 12/24/2017 please follow up with Orthopedics if need to continue Xarelto longer Admission Information HPI (per Admitting provider): This is a 77 yo M with morbid obesity ( BMI > 40 ) , HTN , Hyperlipidemia , gout , peripheral neuropathy , Osteoarthritis of knee Sent form [facility] rehab -as pt was found to be lethargic , difficult to arouse this AM , had fever 100 F , hypoxic /SOB pt been at [facility]hab following Right hip and wrist fracture S/p fall , had ORIF approx [address] Blanca pt's remains bedbound as he is non wt bearing on rt lower extremity for 6 week post op At the SNF ,pt was experiencing cough , low grade fever , CANALES Cxray on 12/14/17 showed: subsegmental atelectasis vs infiltrate in the left mid lung fiel pt was being treated with PO Levaquin for pneumonia with no improvement of symptom this morning sent to [facility] ER For worsening of his respiratory symptom associated with altered menta status Physical Exam (per Admitting): General Appearance: no apparent distress Head: normocephalic, atraumatic Eyes: PERRL, sclerae normal ENT: normal ENT inspection Respiratory/Chest: + decreased breath sounds, + wheezing Cardiovascular: regular rate, rhythm Abdomen/GI: normal bowel sounds, non tender, soft Extremities/Musculoskelatal: + pedal edema (+1-2 ) Neurologic/Psych: no motor/sensory deficits, alert Hospital Course Patient is a 77 yr male presented from [facility] (recovering from a recent orthopedic injury) for worsening SOB and lethargy. Patient was being treated for pneumonia with Levaquin PO as outpatient. Acute on Chronic Hypercarbic/Hypoxic Respiratory failure HCAP Chronic Nocturnal Hypoxia: Oxygen dependency 2L at bedtime H/O Left hemidiaphragm paralysis Obesity Hypoventilation Syndrome CTA: No PE Flu Negative Wean Oxygen to maintain Sats 88-92% Continue Zosyn >>>>Augmentin Day 2 Blood culture: Negative Incentive Spirometry Continue BiPAP as per Pulmonary recommendations Appreciate Pulmonology Input Bicarb levels better Repeat CXR: Improved left lung parenchymal infiltrative change Appreciate Pulmonology Input Metabolic Encephalopathy: Likely secondary to CO2 retention Resolved Continue BIPAP Age Indeterminant RLE DVT: Continue Xarelto for atleast 6 months H/O Recent R wrist and R hip fracture s/p surgery 5 weeks ago Appreciate Ortho Input Needs rehab placement HTN controlled continue metoprolol Chronic Thrombocytopenia: Patient aware Monitor No bleeding issues Peripheral neuropathy continue gabapentin. Morbid obesity BMI:42.2 DVT Px: On Xarelto Code Status: DNR/DNI Disposition: Plan to discharge to [facility] Follow up with your PCP in 1 week after discharge from Rehab facility Follow up with your Orthopedic surgeon in 1 week as advised Follow up with your Survey Analyst in 2 weeks Continue Xarelto for at least 6 months and discuss with your doctor for further recommendations Complete the antibiotic course as prescribed Seek immediate medical attention if your symptoms reoccur or worsen Use BiPAP regularly as advised Total time spent on discharge = 35 minutes This includes examination of the patient, discharge planning, medication reconciliation, and communication with other providers. Discharge Instructions Discharge Instructions Date of Service Dec 25, 2017. Admission Reason for Admission: Hypoxia, Pneumonia, Respiratory Failure Acute, Sob Discharge Discharge Diagnosis / Problem: Acute respiratory failure, Pneumonia, Metabolic Encephalopathy Discharge Goals Goal(s): Decrease discomfort, Improve function Activity Recommendations Activity Limitations: resume your previous activity Exercise/Sports Limitations: as tolerated . Instructions / Follow-Up Instructions / Follow-Up Follow up with your PCP in 1 week after discharge from Rehab facility Follow up with your Orthopedic surgeon in 1 week as advised Follow up with your Survey Analyst in 2 weeks Continue Xarelto for at least 6 months and discuss with your doctor for further recommendations Complete the antibiotic course as prescribed Seek immediate medical attention if your symptoms reoccur or worsen Use BiPAP regularly as advised Current Hospital Diet Patient's current hospital diet: AHA Diet (Heart Healthy) Discharge Diet Recommended Diet: AHA Diet (Heart Healthy) Pending Studies Studies pending at discharge: no Laboratory Results Hemoglobin A1c Test 11/15/17 06:20 Range/Units Estimated Average Glucose 143 mg/dl Hemoglobin A1c 6.6 H 4.5-5.6 % Lipid Panel Test 12/21/17 02:05 Range/Units Triglycerides Level 56 0-150 mg/dl Cholesterol Level 83 0-200 mg/dl HDL Cholesterol 39 mg/dl Cholesterol/HDL Ratio 2.1 LDL Cholesterol, Calculated 33 mg/dl Medical Emergencies . Who to Call and When: Medical Emergencies: If at any time you feel your situation is an emergency, please call 911 immediately. . Non-Emergent Contact Non-Emergency issues call your: Primary Care Provider, Survey Analyst, Surgeon Call Non-Emergent contact if: you have a fever, your pain is not controlled, your pain is worsening, your pain is unusual for you, your pain is concerning you, wound has increased drainage, wound has increased redness, wound has increased pain, you have any medication questions Seek immediate medical attention if your symptoms reoccur or worsen . . "Provider Documentation" section prepared by Orlando Lockhart. . <Electronically signed by Orlando Lockhart MD> Signed: 12/25/17 1221 Signed: The status of this report is Signed * If report status is Draft, the document has not been finalized by the responsible provider.
== END 2017-12-25 14:19 | DRG 193 ==
LOC: EDBD 12:53 → C.EDC 12:56 → C.2T 14:16 → ENRESERV 14:23
PROVIDERS: ADMIT Hospitalist; ATTEND Internal Medicine
DX: J18.9 Pneumonia, unspecified organism (principal); J96.21 Acute and chronic respiratory failure with hypoxia; G93.41 Metabolic encephalopathy; S72.141A Displaced intertrochanteric fracture of right femur, initial encounter for closed fracture; Z68.41 Body mass index [BMI] 40.0-44.9, adult; E66.2 Morbid (severe) obesity with alveolar hypoventilation; I82.4Z1 Acute embolism and thrombosis of unspecified deep veins of right distal lower extremity; E66.01 Morbid (severe) obesity due to excess calories; I10 Essential (primary) hypertension; E78.5 Hyperlipidemia, unspecified; M10.9 Gout, unspecified; G62.9 Polyneuropathy, unspecified; M17.10 Unilateral primary osteoarthritis, unspecified knee; Z83.3 Family history of diabetes mellitus; G47.33 Obstructive sleep apnea (adult) (pediatric); S62.101A Fracture of unspecified carpal bone, right wrist, initial encounter for closed fracture; G47.34 Idiopathic sleep related nonobstructive alveolar hypoventilation; Z66 Do not resuscitate

== ENCOUNTER 2018-01-30 17:28 | Emergency (ER) | payer OTHER ==
[~2018-01-30] VITALS: Ht 182.9 cm; Wt 160.3 kg
[~2018-01-30 17:28] MED LIST changes: +ALBU18002 INH; -ALBU1AER9 INH; +AMOX1TAB43 PO; -Boost PO; +NUTR-7 PO
[2018-01-30 17:45] VITALS: TEMP 36.5; Ht 182.9 cm; Wt 160.3 kg
--- NOTE | 2018-01-30 17:47 | EMERGENCY ROOM VISIT NOTE ---
History Report prepared by Ralph: Miguel Quinones Under the Supervision of: Dr. Mike Sylvester M.D. First contact with patient: 17:31 Chief Complaint: UNABLE TO VOID Stated Complaint: URINARY RETENTION History of Present Illness The patient is a 77 year old male who presents to the Emergency Room with complaints of a constant inability to void starting yesterday. The patient states that he had a femur and wrist fracture on November 14, which he was later put into rehabilitation for. He reports that while he was at [facility] rehabilitation, he was being given oxygen since his levels were low. He states that at the time his urine almost turned black. The patient states he was given medication and his urine returned to normal. He reports he has not had a problem with urination since. The patient states that he was released from rehab yesterday. He reports he has not had to use oxygen and has not experienced any shortness of breath. The patient states he was able to urinate yesterday morning but has not been able to since. Per nursing, Home Health tried to insert a catheter but were unsuccessful. They report the patient was sent here and the patient has been leaking since. The patient states he has an appointment with urology in a couple of days. He denies taking pain medication, similar symptoms in the past, fevers, chills, cough, congestion, nausea, vomiting, new medications, and back injury. He reports a history of intermittent lower extremity edema. Source of History: patient, nursing staff Onset: yesterday morning Position: other (global) Quality: other (unable to urinate) Timing: constant Associated Symptoms: No fevers, No chills, No cough, No SOB, No nausea, No vomiting Review of Systems See HPI for pertinent positives and negatives. A total of ten systems were reviewed and were otherwise negative. Past Medical & Surgical Medical Problems: (1) Hyperlipidemia Surgical Problems: (1) History of knee surgery (2) S/P cholecystectomy Family History Diabetes mellitus Social History Smoking Status: Never Smoker Alcohol Use: none Drug Use: none Marital Status: single Housing Status: lives alone Occupation Status: retired Current/Historical Medications Scheduled Aspirin (Aspirin Ec), 81 MG PO DAILY Atorvastatin (Lipitor), 20 MG PO HS Ciprofloxacin Hcl (Cipro), 500 MG PO BID Citalopram (Citalopram Hydrobromide), 20 MG PO DAILY Fish Oil ([place]-3), 1 CAP PO DAILY Gabapentin (Neurontin), 400 MG PO TID Gemfibrozil (Gemfibrozil), 600 MG PO BID Home O2 Therapy (Oxygen), 2 LITERS NA HS Metoprolol Tartrate (Lopressor) (Lopressor), 12.5 MG PO BID Multivitamin (Multivitamin), 1 TAB PO DAILY Rivaroxaban (Xarelto), 20 MG PO DAILY Saccharomyces Boulardii (Florastor), 1 CAP PO BID Tamsulosin Hcl (Flomax), 0.4 MG PO DAILY Vitamin E (Vitamin E 400 Iu), 400 INTER.UNIT PO DAILY Scheduled PRN Melatonin (Melatonin), 5 MG PO HS PRN for Sleep Allergies Coded Allergies: No Known Allergies (Unverified , 12/20/17) Physical Exam Vital Signs Date Time Temp Pulse Resp B/P (MAP) Pulse Ox O2 Delivery O2 Flow Rate FiO2 01/30/18 20:57 84 16 133/74 94 01/30/18 20:24 84 16 133/74 94 Nasal Cannula 2.0 01/30/18 17:49 95 Nasal Cannula 2.0 01/30/18 17:45 36.5 94 16 141/87 85 Room Air Physical Exam GENERAL: Alert and oriented, in no distress HENT: Normocephalic, atraumatic. Oropharynx unremarkable. EYES: Normal conjunctiva. Sclera non-icteric. NECK: Supple. No nuchal rigidity. FROM. No JVD. RESPIRATORY: Diminished breath sounds at the bases. CARDIAC: Regular rate, normal rhythm. Extremities warm and well perfused. Pulses equal. ABDOMEN: Obese, soft, suprapubic fullness. No tenderness to palpation. No rebound or guarding. No masses. RECTAL: Deferred. MUSCULOSKELETAL: Chest examination reveals no tenderness. The back is symmetrical on inspection without obvious abnormality. There is no CVA tenderness to palpation. No joint edema. LOWER EXTREMITIES: Calves are equal size bilaterally and non-tender. 2+ edema. No discoloration. NEURO: Normal sensorium. No sensory or motor deficits noted. SKIN: No rash or jaundice noted. Medical Decision & Procedures ER Provider Diagnostic Interpretation: Radiology results as stated below per my review and radiologist interpretation: ABD/PELVIS IV CONTRAST ONLY CLINICAL HISTORY: 77 years-old Male presenting with urinary retention. TECHNIQUE: Multidetector CT of the abdomen and pelvis was performed after the administration of intravenous contrast. IV contrast: 116 mL of Optiray 320. A dose lowering technique was used consistent with the principles of ALARA (as low as reasonably achievable). COMPARISON: None. CT DOSE (mGy.cm): The estimated cumulative dose is 2084.80 mGy.cm. FINDINGS: Lead Data Entry Operator topogram: Cholecystectomy clips. Lung bases: Extensive dependent consolidation greater in the left lung. Bronchial wall thickening in the lower lobes suggested. Multichamber enlargement of the heart. Coronary artery calcification. Trace left pleural effusion. No pericardial effusion. Liver: Normal morphology. No liver lesion. Patent hepatic vasculature. Biliary: No intrahepatic or extrahepatic biliary ductal dilatation. Gallbladder surgically absent. Pancreas: Moderate parenchymal atrophy. Spleen: Normal. Adrenal glands: Normal. Kidneys and ureters: Nonobstructing punctate renal calculus in the interpolar region of the right kidney. Punctate renal calculus also suggested at the upper pole the left kidney. No hydronephrosis. Minimal nonspecific perinephric fat stranding. Though the left ureter is nondistended, there is a punctate left ureteral calculus at the level of L2-3. Bladder: Dependent hyperdensity in the bladder may represent tiny calculi or debris. Pelvic organs: Prostate and seminal vesicles normal. Bowel: Few diverticula noted in the proximal sigmoid colon and descending colon. The appendix is normal. No bowel obstruction. Peritoneal cavity: No free fluid or intraperitoneal gas. Lymph nodes: No enlarged lymph nodes in the abdomen or pelvis. Vasculature: Atherosclerosis of the normal caliber abdominal aorta. IVC patent. Abdominal wall: Mild nonspecific body wall edema. Musculoskeletal: Degenerative changes of the spine. Intramedullary nail fixation of the right femoral neck and proximal metadiaphysis. Displaced lesser trochanter fracture fragment. Minimal surrounding heterotopic ossification surrounding the presumed prior intertrochanteric fracture plane. IMPRESSION: 1. Nonobstructing punctate calculus in the left ureter at the level of L2-3. 2. Additional nonobstructing small renal calculi. 3. The bladder may contain few tiny calculi or debris. 4. Extensive bibasilar atelectasis. An element of chronic aspiration is difficult to exclude. Electronically signed by: Zelalem Briceño M.D. 01/30/2018 8:19 PM Dictated Date/Time: 01/30/2018 8:13 PM Laboratory Results 01/30/18 18:27 Red Blood Count 4.46, Mean Corpuscular Volume 102.7, Mean Corpuscular Hemoglobin 33.2, Mean Corpuscular Hemoglobin Concent 32.3, Mean Platelet Volume 11.8, Neutrophils (%) (Auto) 76.8, Lymphocytes (%) (Auto) 13.0, Monocytes (%) ( Auto) 8.7, Eosinophils (%) (Auto) 0.9, Basophils (%) (Auto) 0.3, Neutrophils # ( Auto) 5.10, Lymphocytes # (Auto) 0.86, Monocytes # (Auto) 0.58, Eosinophils # ( Auto) 0.06, Basophils # (Auto) 0.02 01/30/18 18:27 Test 01/30/18 18:27 01/30/18 19:00 White Blood Count 6.64 K/uL (4.8-10.8) Red Blood Count 4.46 M/uL (4.7-6.1) Hemoglobin 14.8 g/dL (14.0-18.0) Hematocrit 45.8 % (42-52) Mean Corpuscular Volume 102.7 fL (80-100) Mean Corpuscular Hemoglobin 33.2 pg (25-34) Mean Corpuscular Hemoglobin Concent 32.3 g/dl (32-36) Platelet Count 155 K/uL (130-400) Mean Platelet Volume 11.8 fL (7.4-10.4) Neutrophils (%) (Auto) 76.8 % Lymphocytes (%) (Auto) 13.0 % Monocytes (%) (Auto) 8.7 % Eosinophils (%) (Auto) 0.9 % Basophils (%) (Auto) 0.3 % Neutrophils # (Auto) 5.10 K/uL (1.4-6.5) Lymphocytes # (Auto) 0.86 K/uL (1.2-3.4) Monocytes # (Auto) 0.58 K/uL (0.11-0.59) Eosinophils # (Auto) 0.06 K/uL (0-0.5) Basophils # (Auto) 0.02 K/uL (0-0.2) RDW Standard Deviation 49.9 fL (36.4-46.3) RDW Coefficient of Variation 13.3 % (11.5-14.5) Immature Granulocyte % (Auto) 0.3 % Immature Granulocyte # (Auto) 0.02 K/uL (0.00-0.02) Anion Gap 4.0 mmol/L (3-11) Est Creatinine Clear Calc Drug Dose 138.1 ml/min Estimated GFR () 105.4 Estimated GFR (Non- 90.9 BUN/Creatinine Ratio 24.3 (10-20) Calcium Level 9.1 mg/dl (8.5-10.1) Total Bilirubin 0.9 mg/dl (0.2-1) Direct Bilirubin 0.4 mg/dl (0-0.2) Aspartate Amino Transf (AST/SGOT) 32 U/L (15-37) Alanine Aminotransferase (ALT/SGPT) 27 U/L (12-78) Alkaline Phosphatase 160 U/L (45-117) Total Protein 6.4 gm/dl (6.4-8.2) Albumin 2.6 gm/dl (3.4-5.0) Lipase 78 U/L (73-393) Urine Color YELLOW Urine Appearance CLEAR (CLEAR) Urine pH 8.0 (4.5-7.5) Urine Specific Circle 1.014 (1.000-1.030) Urine Protein NEG (NEG) Urine Glucose (UA) NEG (NEG) Urine Ketones TRACE (NEG) Urine Occult Blood 2+ (NEG) Urine Nitrite NEG (NEG) Urine Bilirubin NEG (NEG) Urine Urobilinogen NEG (NEG) Urine Leukocyte Esterase LARGE (NEG) Urine WBC (Auto) >30 /hpf (0-5) Urine RBC (Auto) 10-30 /hpf (0-4) Urine Hyaline Casts (Auto) 1-5 /lpf (0-5) Urine Epithelial Cells (Auto) 5-10 /lpf (0-5) Urine Bacteria (Auto) NEG (NEG) Urine Yeast (Auto) (NONE PRSENT) Laboratory results reviewed by me Medications Administered Medications (Trade) Dose Ordered Sig/Lacey Route Start Time Stop Time Status Last Admin Dose Admin Lidocaine HCl (Xylocaine Jelly 2%) 10 ml NOW STAT EXT 01/30/18 18:10 01/30/18 18:13 DC 01/30/18 18:23 10 ML Ciprofloxacin (Cipro Tab) 500 mg NOW STAT PO 01/30/18 20:34 01/30/18 20:35 DC 01/30/18 20:55 500 MG Tamsulosin HCl (Flomax Cap) 0.4 mg NOW ONCE PO 01/30/18 20:45 01/30/18 20:46 DC 01/30/18 20:55 0.4 MG ED Course 1733: The patient was evaluated in room C11B. A complete history and physical exam was performed. 2033: I reevaluated the patient. Discussed results and discharge instructions: He verbalized understanding and agreement. The patient is ready for discharge. Medical Decision I reviewed the patient's past medical history, medications, and the nursing notes as described above. The patient's presentation and history were concerning for etiologies such as renal colic, appendicitis, diverticulitis, mesenteric ischemia, aortic pathology , infections, inflammatory bowel disease, PUD, biliary pathology, UTI, as well as others were entertained. The patient is a 77 y/o gentleman who presents to the emergency department with acute onset urinary retention in the setting of having recent femur fx in October per HPI. On arrival the patient is in NAD, AFVSS. On exam the patient has mild suprapubic fullness without ttp. Multiple attempts at small placement unsuccessful despite attempt with 14f coude catheter. Bedside US initially demonstrating ~1L in bladder with no hydronephrosis. However, in the interim the patient did subsequently urinate with gross sediment visible. CT scan demonstrates left ureteral stone with tiny debris calculi within the bladder. Etiology for transient retention likely stone fragments. UA c/w possible infection. Given WBC wnl, patient otherwise well-appearing at his baseline, reasonable to treat with oral cipro and have patient f/u as scheduled with urology, Dr. Abreu, next week. Plan for cipro and flomax. Findings and plan for follow-up reviewed with patient. Patient agreeable and d/c'd per discharge instructions. Medication Reconcilliation Current Medication List: was personally reviewed by me Blood Pressure Screening Patient's blood pressure: Elevated blood pressure Blood pressure disposition: Elevated BP felt to be situational Impression Primary Impression: Ureteral stone Additional Impression: Urinary retention Scribe Attestation The scribe's documentation has been prepared under my direction and personally reviewed by me in its entirety. I confirm that the note above accurately reflects all work, treatment, procedures, and medical decision making performed by me. Departure Information Dispostion Home / Self-Care Prescriptions Tamsulosin Hcl (FLOMAX) 0.4 Mg Cap 0.4 MG PO DAILY for 7 Days, #7 CAP Prov: Mike Sylvester M.D. 01/30/18 Saccharomyces Boulardii (Florastor) 250 Mg Cap 1 CAP PO BID for 10 Days, #20 CAP Prov: Mike Sylvester M.D. 01/30/18 Ciprofloxacin Hcl (CIPRO) 500 Mg Tab 500 MG PO BID for 7 Days, #14 TAB Prov: Mike Sylvester M.D. 01/30/18 Referrals Maico Mcdonald D.O. (PCP) Patient Instructions ED Retention Urinary Male, Kidney Stones, My [facility] Additional Instructions Please follow up with urology on Thursday as scheduled for re-evaluation. Your symptoms are likely due to a passing kidney stone. Otherwise, your exam, lab results, and CT scan did not show signs of an emergent condition at this time. Acetaminophen or ibuprofen for pain and fevers as needed. Flomax as directed. Ciprofloxacin as directed. Florastor, probiotic, to help prevent antibiotic associated diarrhea. Drink plenty of fluids to ensure hydration. Return to the emergency department for worsening symptoms as described in the accompanying instructions. Problem Qualifiers
[2018-01-30 17:49] VITALS: O2SAT 95
[2018-01-30] MEDS ORDERED: LIDOCAINE HCL 2% JELLY 30 ML TUBE EXT STA (18:10)
[2018-01-30] MEDS ORDERED: OXGN (18:13)
[2018-01-30] MEDS ORDERED: ASPI81TA28 PO (18:13)
[2018-01-30] MEDS ORDERED: METO25TA56 PO (18:13)
[2018-01-30] MEDS ORDERED: GABA400C PO (18:13)
[2018-01-30] MEDS ORDERED: MELA1TAB54 PO (18:13)
[2018-01-30] MEDS ORDERED: VITA400C3 PO (18:14)
[2018-01-30] MEDS ORDERED: CLX/20 PO (18:14)
[2018-01-30 18:41] LABS: BASO % 0.3 %; BASO ABS # 0.02 K/uL (0-0.2); EOS % 0.9 %; EOS ABS # 0.06 K/uL (0-0.5); HEMATOCRIT 45.8 % (42-52); HEMOGLOBIN 14.8 g/dL (14.0-18.0); IG# 0.02 K/uL (0.00-0.02); LYMPH ABS # 0.86 K/uL (1.2-3.4); MEAN CELL VOLUME 102.7 fL (80-100); MEAN CORPUSCULAR HEMOGLOBIN 33.2 pg (25-34); MEAN CORPUSCULAR HGB CONC 32.3 g/dl (32-36); MEAN PLATELET VOLUME 11.8 fL (7.4-10.4); MONO % 8.7 %; MONO ABS # 0.58 K/uL (0.11-0.59); NEUT % 76.8 %; PLATELET COUNT 155 K/uL (130-400); RED CELL DISTRIBUTION WIDTH CV 13.3 % (11.5-14.5); RED CELL DISTRIBUTION WIDTH SD 49.9 fL (36.4-46.3); WHITE BLOOD COUNT 6.64 K/uL (4.8-10.8)
[2018-01-30 18:59] LABS: ALBUMIN 2.6 gm/dl (3.4-5.0); CALCIUM 9.1 mg/dl (8.5-10.1); CREATININE 0.69 mg/dl (0.60-1.40); POTASSIUM 4.4 mmol/L (3.5-5.1)
[2018-01-30 19:02] LABS: TOTAL PROTEIN 6.4 gm/dl (6.4-8.2)
[2018-01-30] MEDS ORDERED: OPTIRAY 320 IV PRN (20:15)
--- NOTE | 2018-01-30 20:20 | DIAGNOSTIC IMAGING REPORT ---
ABD/PELVIS IV CONTRAST ONLY CLINICAL HISTORY: 77 years-old Male presenting with urinary retention. TECHNIQUE: Multidetector CT of the abdomen and pelvis was performed after the administration of intravenous contrast. IV contrast: 116 mL of Optiray 320. A dose lowering technique was used consistent with the principles of ALARA (as low as reasonably achievable). COMPARISON: None. CT DOSE (mGy.cm): The estimated cumulative dose is 2084.80 mGy.cm. FINDINGS: Document Reviewer topogram: Cholecystectomy clips. Lung bases: Extensive dependent consolidation greater in the left lung. Bronchial wall thickening in the lower lobes suggested. Multichamber enlargement of the heart. Coronary artery calcification. Trace left pleural effusion. No pericardial effusion. Liver: Normal morphology. No liver lesion. Patent hepatic vasculature. Biliary: No intrahepatic or extrahepatic biliary ductal dilatation. Gallbladder surgically absent. Pancreas: Moderate parenchymal atrophy. Spleen: Normal. Adrenal glands: Normal. Kidneys and ureters: Nonobstructing punctate renal calculus in the interpolar region of the right kidney. Punctate renal calculus also suggested at the upper pole the left kidney. No hydronephrosis. Minimal nonspecific perinephric fat stranding. Though the left ureter is nondistended, there is a punctate left ureteral calculus at the level of L2-3. Bladder: Dependent hyperdensity in the bladder may represent tiny calculi or debris. Pelvic organs: Prostate and seminal vesicles normal. Bowel: Few diverticula noted in the proximal sigmoid colon and descending colon. The appendix is normal. No bowel obstruction. Peritoneal cavity: No free fluid or intraperitoneal gas. Lymph nodes: No enlarged lymph nodes in the abdomen or pelvis. Vasculature: Atherosclerosis of the normal caliber abdominal aorta. IVC patent. Abdominal wall: Mild nonspecific body wall edema. Musculoskeletal: Degenerative changes of the spine. Intramedullary nail fixation of the right femoral neck and proximal metadiaphysis. Displaced lesser trochanter fracture fragment. Minimal surrounding heterotopic ossification surrounding the presumed prior intertrochanteric fracture plane. IMPRESSION: 1. Nonobstructing punctate calculus in the left ureter at the level of L2-3. 2. Additional nonobstructing small renal calculi. 3. The bladder may contain few tiny calculi or debris. 4. Extensive bibasilar atelectasis. An element of chronic aspiration is difficult to exclude. Electronically signed by: Zelalem Briceño M.D. 01/30/2018 8:19 PM Dictated Date/Time: 01/30/2018 8:13 PM
[2018-01-30] MEDS ORDERED: CIPROFLOXACIN 500 MG TAB PO STA (20:34)
[2018-01-30] MEDS ORDERED: CIPR-255 PO (20:37)
[2018-01-30] MEDS ORDERED: SACC250C3 PO (20:38)
[2018-01-30] MEDS ORDERED: TAMS0.4C38 PO (20:40)
[2018-01-30] MEDS ORDERED: TAMSULOSIN HCL 0.4 MG CAP PO ONE (20:45)
[2018-01-30 20:57] VITALS: BP 133/74; PULSE 84; O2SAT 94
== END 2018-01-30 20:57 | disposition home or self-care (01) ==
LOC: EDBD 17:28 → C.EDC 17:30
DX: N20.1 Calculus of ureter (principal); R33.9 Retention of urine, unspecified; E78.5 Hyperlipidemia, unspecified; Z83.3 Family history of diabetes mellitus; Z79.82 Long term (current) use of aspirin

== ENCOUNTER 2018-02-03 16:17 | Inpatient (IN) | payer OTHER ==
[~2018-02-03] VITALS: Ht 180.3 cm; Wt 153.8 kg
[~2018-02-03 16:17] MED LIST changes: -ACET-1047 PO; -ALBU18002 INH; -AMOX1TAB43 PO; -ASCO1CAP3 PO; +ASPI81TA28 PO; +CIPR-255 PO; +CLX/20 PO; -GABA-112 PO; +GABA400C PO; -LPR25 PO; +MELA1TAB54 PO; +METO25TA56 PO; -MRLP17 PO; -NUTR-7 PO; +OXGN; -OXYC-57 PO; +SACC250C3 PO; +TAMS0.4C38 PO; +VITA400C3 PO
--- NOTE | 2018-02-03 16:42 | EMERGENCY ROOM VISIT NOTE ---
History Report prepared by Ralph: Dorie Davila Under the Supervision of: Dr. Mike Sylvester M.D. First contact with patient: 16:25 Chief Complaint: URINARY SYMPTOMS Stated Complaint: URINARY RETENSION Nursing Triage Summary: Patient is from home states he has been having trouble with urinary retention. Patient had a circumcision 29 years ago that had some complications. Patient was seen in ER for similar symptoms on Thursday and has not been able to follow up with urology since. Patient wears 2 L NC chroically at home patient was only 81 % on 2 L NC on arrival to ER. History of Present Illness The patient is a 77 year old male who presents to the Emergency Room with complaints of constant urinary retention beginning today. The patient denies feeling more confused recently and also denies feeling short of breath. He states that he missed his urology appointment yesterday. He reports that he has been taking his Flomax. The patient was seen in the ED 4 days ago for similar symptoms. Of note, son at bedside reports increased confusion and shortness of breath from his baseline. Source of History: patient Onset: today Position: other (bladder ) Quality: other (urinary retention) Timing: constant Associated Symptoms: No SOB Review of Systems See HPI for pertinent positives and negatives. A total of ten systems were reviewed and were otherwise negative. 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 (11) Right wrist fracture Surgical Problems: (1) H/O umbilical hernia repair (2) History of knee surgery (3) Hx of cholecystectomy Family History Diabetes mellitus Social History Smoking Status: Never Smoker Alcohol Use: none Drug Use: none Marital Status: single Housing Status: lives alone Occupation Status: retired Current/Historical Medications Scheduled Aspirin (Aspirin Ec), 81 MG PO DAILY Atorvastatin (Lipitor), 20 MG PO HS Calcium Ascorbate (Vitamin C), 1 TAB PO DAILY Ciprofloxacin Hcl (Cipro), 500 MG PO BID Citalopram (Citalopram Hydrobromide), 20 MG PO DAILY Fish Oil ([place]-3), 1 CAP PO DAILY Gabapentin (Neurontin), 400 MG PO BID Gabapentin (Neurontin), 1 TAB PO HS Gemfibrozil (Gemfibrozil), 600 MG PO BID Metoprolol Tartrate (Lopressor) (Lopressor), 12.5 MG PO BID Multivitamin (Multivitamin), 1 TAB PO DAILY Rivaroxaban (Xarelto), 20 MG PO DAILY Tamsulosin Hcl (Flomax), 0.4 MG PO DAILY Scheduled PRN Melatonin (Melatonin), 5 MG PO HS PRN for Sleep Miscellaneous Medications Home O2 Therapy (Oxygen), 2 LITERS NA Allergies Coded Allergies: No Known Allergies (Unverified , 12/20/17) Physical Exam Vital Signs Date Time Temp Pulse Resp B/P (MAP) Pulse Ox O2 Delivery O2 Flow Rate FiO2 02/03/18 19:57 83 20 134/83 95 Nasal Cannula 3.0 02/03/18 18:53 78 20 95 Nasal Cannula 2.0 02/03/18 17:52 87 22 96 Nasal Cannula 2.0 02/03/18 16:21 37.0 85 20 130/73 81 Nasal Cannula 2.0 Physical Exam GENERAL: Awake, alert, fatigued-appearing, in no distress. Mildly confused. HENT: Normocephalic, atraumatic. Dry mucous membranes, otherwise oropharynx unremarkable. EYES: Normal conjunctiva. Sclera non-icteric. NECK: Supple. No nuchal rigidity. FROM. No JVD. RESPIRATORY: Diminished throughout with scant intermittent wheeze. CARDIAC: Regular rate, normal rhythm. Extremities warm and well perfused. Pulses equal. ABDOMEN: No tenderness to palpation. Moderate suprapubic fullness. No rebound or guarding. No masses. RECTAL: Deferred. MUSCULOSKELETAL: Chest examination reveals no tenderness. The back is symmetrical on inspection without obvious abnormality. There is no CVA tenderness to palpation. No joint edema. LOWER EXTREMITIES: Calves are equal size bilaterally and non-tender. 2+ lower extremity edema. No discoloration. NEURO: Normal sensorium. No sensory or motor deficits noted. SKIN: No rash or jaundice noted. Medical Decision & Procedures ER Provider Diagnostic Interpretation: Radiology results as stated below per my review and radiologist interpretation: CHEST ONE VIEW PORTABLE HISTORY: 77 years-old Male sob acute shortness of breath COMPARISON: Chest radiograph 12/24/2017, CTA of the chest 12/20/2017 TECHNIQUE: Portable AP view of the chest FINDINGS: Cardiac silhouette is mildly enlarged, stable. Atherosclerosis of the aorta. Mild pulmonary vascular congestion without overt pulmonary edema. No pneumothorax. Hypoinflation. Subsegmental bibasilar opacities are noted in addition to patchy opacities of the right midlung. Unchanged blunting of the costophrenic angles bilaterally without large pleural effusion. Bones of the chest appear grossly intact. IMPRESSION: 1. Cardiomegaly and mild pulmonary vascular congestion without overt pulmonary edema. 2. Hypoinflation with subsegmental bibasilar and right midlung opacities suggest atelectasis or pneumonia. The above report was generated using voice recognition software. It may contain grammatical, syntax or spelling errors. Electronically signed by: Sundeep Haji M.D. 02/03/2018 5:19 PM Dictated Date/Time: 02/03/2018 5:17 PM Laboratory Results 02/03/18 17:01 Red Blood Count 4.28, Mean Corpuscular Volume 107.2, Mean Corpuscular Hemoglobin 33.2, Mean Corpuscular Hemoglobin Concent 30.9, Mean Platelet Volume 11.5, Neutrophils (%) (Auto) 75.0, Lymphocytes (%) (Auto) 11.1, Monocytes (%) ( Auto) 8.9, Eosinophils (%) (Auto) 4.2, Basophils (%) (Auto) 0.6, Neutrophils # ( Auto) 3.79, Lymphocytes # (Auto) 0.56, Monocytes # (Auto) 0.45, Eosinophils # ( Auto) 0.21, Basophils # (Auto) 0.03 02/03/18 17:01 Test 02/03/18 17:01 02/03/18 19:38 02/03/18 20:20 White Blood Count 5.05 K/uL (4.8-10.8) Red Blood Count 4.28 M/uL (4.7-6.1) Hemoglobin 14.2 g/dL (14.0-18.0) Hematocrit 45.9 % (42-52) Mean Corpuscular Volume 107.2 fL (80-100) Mean Corpuscular Hemoglobin 33.2 pg (25-34) Mean Corpuscular Hemoglobin Concent 30.9 g/dl (32-36) Platelet Count 131 K/uL (130-400) Mean Platelet Volume 11.5 fL (7.4-10.4) Neutrophils (%) (Auto) 75.0 % Lymphocytes (%) (Auto) 11.1 % Monocytes (%) (Auto) 8.9 % Eosinophils (%) (Auto) 4.2 % Basophils (%) (Auto) 0.6 % Neutrophils # (Auto) 3.79 K/uL (1.4-6.5) Lymphocytes # (Auto) 0.56 K/uL (1.2-3.4) Monocytes # (Auto) 0.45 K/uL (0.11-0.59) Eosinophils # (Auto) 0.21 K/uL (0-0.5) Basophils # (Auto) 0.03 K/uL (0-0.2) RDW Standard Deviation 53.0 fL (36.4-46.3) RDW Coefficient of Variation 13.6 % (11.5-14.5) Immature Granulocyte % (Auto) 0.2 % Immature Granulocyte # (Auto) 0.01 K/uL (0.00-0.02) Venous Blood pH 7.22 (7.36-7.41) Venous Blood Partial Pressure CO2 96 mmHg (38.0-50.0) Venous Blood Partial Pressure O2 38 mmHg Venous Blood HCO3 39 mmol/L Venous Blood Oxygen Saturation 65.9 % Venous Blood Base Excess 6.9 mEq/L Anion Gap -1.0 mmol/L (3-11) Est Creatinine Clear Calc Drug Dose 116.8 ml/min Estimated GFR () 100.2 Estimated GFR (Non- 86.5 BUN/Creatinine Ratio 18.7 (10-20) Calcium Level 8.9 mg/dl (8.5-10.1) Total Bilirubin 0.6 mg/dl (0.2-1) Direct Bilirubin 0.2 mg/dl (0-0.2) Aspartate Amino Transf (AST/SGOT) 28 U/L (15-37) Alanine Aminotransferase (ALT/SGPT) 24 U/L (12-78) Alkaline Phosphatase 146 U/L (45-117) Pro-B-Type Natriuretic Peptide 370 pg/ml (0-1800) Total Protein 6.6 gm/dl (6.4-8.2) Albumin 2.7 gm/dl (3.4-5.0) Lipase 91 U/L (73-393) Lactic Acid Level 1.0 mmol/L (0.4-2.0) Urine Color ORANGE Urine Appearance TURBID (CLEAR) Urine pH 5.0 (4.5-7.5) Urine Specific [place] 1.027 (1.000-1.030) Urine Protein 1+ (NEG) Urine Glucose (UA) NEG (NEG) Urine Ketones NEG (NEG) Urine Occult Blood 3+ (NEG) Urine Nitrite NEG (NEG) Urine Bilirubin NEG (NEG) Urine Urobilinogen NEG (NEG) Urine Leukocyte Esterase MODERATE (NEG) Urine WBC (Auto) 10-30 /hpf (0-5) Urine RBC (Auto) >30 /hpf (0-4) Urine Hyaline Casts (Auto) 1-5 /lpf (0-5) Urine Epithelial Cells (Auto) 10-20 /lpf (0-5) Urine Bacteria (Auto) NEG (NEG) Urine Yeast (Auto) BUDDING (NONE PRSENT) Laboratory results reviewed by me Medications Administered Medications (Trade) Dose Ordered Sig/Lacey Route Start Time Stop Time Status Last Admin Dose Admin Lidocaine HCl (Xylocaine Jelly 2%) 10 ml NOW STAT EXT 02/03/18 17:25 02/03/18 17:26 DC 02/03/18 17:46 10 ML Albuterol/ Ipratropium (Duoneb) 12 ml ONE ONCE INH 02/03/18 18:15 02/03/18 18:16 DC 02/03/18 20:00 12 ML Methylprednisolone Sodium Succinate (Solu-Medrol IV) 125 mg NOW STAT IV 02/03/18 18:12 02/03/18 18:13 DC 02/03/18 19:53 125 MG Vancomycin HCl 2000 mg/Sodium Chloride 540 ml @ 200 mls/hr NOW STAT IV 02/03/18 18:22 02/03/18 21:03 DC 02/03/18 19:50 200 MLS/HR Cefepime HCl 1000 mg/Dextrose 111 ml @ 200 mls/hr NOW STAT IV 02/03/18 18:22 02/03/18 18:55 DC 02/03/18 19:49 200 MLS/HR Azithromycin 500 mg/Dextrose 255 ml @ 125 mls/hr ONE STAT IV 02/03/18 18:22 02/03/18 20:24 DC 4/11/18 19:50 125 MLS/HR ECG Per My Interpretation Indication: SOB/dyspnea Rate (beats per minute): 101 Rhythm: sinus tachycardia (with frequent PVC's) Findings: no acute ischemic change, other (normal axis) ED Course 1719: The patient was evaluated in room C3. A complete history and physical exam was performed. 1838: Upon reexamination, the patient was resting. I discussed the test results and treatment plan with him. I discussed the patient's case with Dr. Norman- Urology. The patient will be evaluated for further management. Medical Decision I reviewed the patient's past medical history, medications, and the nursing notes as described above. Differential diagnosis: Etiologies such as appendicitis, diverticulitis, PUD, biliary pathology, UTI, pancreatitis, obstruction, mesenteric ischemia, aortic pathology, infections, inflammatory bowel disease, renal colic, reactive airway disease, pneumonia, pneumothorax, COPD, CHF, cardiac ischemia, pulmonary embolism, musculoskeletal, gastrointestinal, as well as others were entertained. The patient is a 69-year-old gentleman who presents emergency department with acute urinary retention for the second time after being seen in the emergency department 4 days prior with subsequent resolution of his retention in the ED and found to have bladder sediment and ureteral stone discharged on Flomax and Cipro per HPI. Of note, the patient had his urology appointment yesterday however was unable to go given that his home ramp was not installed in the setting of being immobile due to a recent femur fracture in October. On arrival the patient is fatigued appearing and mildly confused from his baseline , afebrile with vital signs stable. WBC within normal limits. However, patient with acidosis and hypercapnia on VBG with CO2 in the 90s and pH of 7.22. Chest x-ray with evidence of fluid overload but also possible pneumonia. Given the patient's worsening respiratory status with hypercapnia will treat with broad-spectrum antibiotics at this time. On arrival the patient also was found to have >1 L of urine in his bladder, multiple attempts by nursing staff for catheterization were unsuccessful including with 14f coud catheter. Case was discussed with Dr. Norman, urology who came to emergency department and was able to place 20f coude catheter. See consultation for details. Given the patient's respiratory status with significant CO2 retention, the patient was placed on BiPAP and the family was agreeable for admission. Case was discussed with Yessica Armaser PAC who will evaluate the patient for admission. Medication Reconcilliation Current Medication List: was personally reviewed by me Blood Pressure Screening Patient's blood pressure: Normal blood pressure Consults Time Called: 1823 Consulting Physician: Dr. Norman - Urology Returned Call: [phone] I discussed the patient with Dr. Norman who will evaluate the patient for further treatment. Impression Primary Impression: Pneumonia Additional Impressions: Acute on chronic respiratory failure with hypoxia and hypercapnia Acute urinary retention Urinary tract infection Critical Care I have personally spent greater than 35 minutes of critical care time in the direct management of this patient. This includes bedside care, interpretation of diagnostic studies, and testing, discussion with consultants, patient, and family members, and other required patient management activities. This 35 minutes is in excess of all separately billable procedures. Scribe Attestation The scribe's documentation has been prepared under my direction and personally reviewed by me in its entirety. I confirm that the note above accurately reflects all work, treatment, procedures, and medical decision making performed by me. Departure Information Dispostion Being Evaluated By Hospitalist Referrals No Doctor, Assigned (PCP) Patient Instructions My [facility] Problem Qualifiers
[2018-02-03 17:10] LABS: BASO % 0.6 %; BASO ABS # 0.03 K/uL (0-0.2); EOS % 4.2 %; EOS ABS # 0.21 K/uL (0-0.5); HEMATOCRIT 45.9 % (42-52); HEMOGLOBIN 14.2 g/dL (14.0-18.0); IG# 0.01 K/uL (0.00-0.02); LYMPH % 11.1 %; LYMPH ABS # 0.56 K/uL (1.2-3.4); MEAN CELL VOLUME 107.2 fL (80-100); MEAN CORPUSCULAR HEMOGLOBIN 33.2 pg (25-34); MEAN CORPUSCULAR HGB CONC 30.9 g/dl (32-36); MEAN PLATELET VOLUME 11.5 fL (7.4-10.4); MONO % 8.9 %; MONO ABS # 0.45 K/uL (0.11-0.59); NEUT ABS # 3.79 K/uL (1.4-6.5); PLATELET COUNT 131 K/uL (130-400); RED CELL DISTRIBUTION WIDTH CV 13.6 % (11.5-14.5); WHITE BLOOD COUNT 5.05 K/uL (4.8-10.8)
[2018-02-03] MEDS ORDERED: CIPR1TAB10 PO (17:11)
[2018-02-03] MEDS ORDERED: SACC250C PO (17:20)
--- NOTE | 2018-02-03 17:21 | DIAGNOSTIC IMAGING REPORT ---
CHEST ONE VIEW PORTABLE HISTORY: 77 years-old Male sob acute shortness of breath COMPARISON: Chest radiograph 12/24/2017, CTA of the chest 12/20/2017 TECHNIQUE: Portable AP view of the chest FINDINGS: Cardiac silhouette is mildly enlarged, stable. Atherosclerosis of the aorta. Mild pulmonary vascular congestion without overt pulmonary edema. No pneumothorax. Hypoinflation. Subsegmental bibasilar opacities are noted in addition to patchy opacities of the right midlung. Unchanged blunting of the costophrenic angles bilaterally without large pleural effusion. Bones of the chest appear grossly intact. IMPRESSION: 1. Cardiomegaly and mild pulmonary vascular congestion without overt pulmonary edema. 2. Hypoinflation with subsegmental bibasilar and right midlung opacities suggest atelectasis or pneumonia. The above report was generated using voice recognition software. It may contain grammatical, syntax or spelling errors. Electronically signed by: Sundeep Haji M.D. 02/03/2018 5:19 PM Dictated Date/Time: 02/03/2018 5:17 PM
[2018-02-03] MEDS ORDERED: TAMS0.4C38 PO (17:22)
[2018-02-03] MEDS ORDERED: LIDOCAINE HCL 2% JELLY 30 ML TUBE EXT STA (17:25)
[2018-02-03 17:29] LABS: ALBUMIN 2.7 gm/dl (3.4-5.0); CALCIUM 8.9 mg/dl (8.5-10.1); CREATININE 0.78 mg/dl (0.60-1.40); POTASSIUM 4.6 mmol/L (3.5-5.1)
[2018-02-03 17:34] LABS: TOTAL PROTEIN 6.6 gm/dl (6.4-8.2)
[2018-02-03] MEDS ORDERED: METHYLPREDNISOLONE 125 MG VIAL IV STA (18:12)
[2018-02-03] MEDS ORDERED: ALBUT/IPRATROP 3MG/0.5MG NEB 3 ML VIAL INH ONE (18:15)
[2018-02-03] MEDS ORDERED: CEFEPIME IV 1,000 MG in DEXTROSE 5% 100ML 100 ML IV STA (18:22)
[2018-02-03] MEDS ORDERED: VANCOMYCIN IV 2,000 MG in SODIUM CHLORIDE 0.9% 500ML 500 ML IV STA (18:22)
[2018-02-03] MEDS ORDERED: AZITHROMYCIN IV 500 MG in DEXTROSE 5% 250ML 250 ML IV STA (18:22)
[2018-02-03] MEDS ORDERED: VANCOMYCIN CONSULT ACTIVE PRN (18:30)
--- NOTE | 2018-02-03 18:51 | Urology Consultation ---
History General Date of Service: Feb 03, 2018. Chief Complaint: Urinary retention Primary Care Physician: Maico Mcdonald D.O. Pt seen a urologist before?: No History of Present Illness 77 yo male for urinary retention and difficulties with breathing. He notes he has been voiding with a dribbling stream for days. He has not been seen by a urologist in the past, was pending consult with our service yesterday but could not arrange transport. He notes longstanding obstructive symptoms. He is on no medications for his voiding. ER records and previous ER visit with unsuccessful attempts at catheterization are noted. CT images reviewed - calcified prostate c /w CHAPIN. Imaging Imaging: CT Laboratory Last 24 Hours Test 02/03/18 17:01 02/03/18 18:12 White Blood Count 5.05 K/uL Red Blood Count 4.28 M/uL Hemoglobin 14.2 g/dL Hematocrit 45.9 % Mean Corpuscular Volume 107.2 fL Mean Corpuscular Hemoglobin 33.2 pg Mean Corpuscular Hemoglobin Concent 30.9 g/dl Platelet Count 131 K/uL Mean Platelet Volume 11.5 fL Neutrophils (%) (Auto) 75.0 % Lymphocytes (%) (Auto) 11.1 % Monocytes (%) (Auto) 8.9 % Eosinophils (%) (Auto) 4.2 % Basophils (%) (Auto) 0.6 % Neutrophils # (Auto) 3.79 K/uL Lymphocytes # (Auto) 0.56 K/uL Monocytes # (Auto) 0.45 K/uL Eosinophils # (Auto) 0.21 K/uL Basophils # (Auto) 0.03 K/uL RDW Standard Deviation 53.0 fL RDW Coefficient of Variation 13.6 % Immature Granulocyte % (Auto) 0.2 % Immature Granulocyte # (Auto) 0.01 K/uL Venous Blood pH 7.22 Venous Blood Partial Pressure CO2 96 mmHg Venous Blood Partial Pressure O2 38 mmHg Venous Blood HCO3 39 mmol/L Venous Blood Oxygen Saturation 65.9 % Venous Blood Base Excess 6.9 mEq/L Sodium Level 140 mmol/L Potassium Level 4.6 mmol/L Chloride Level 101 mmol/L Carbon Dioxide Level 39 mmol/L Anion Gap -1.0 mmol/L Blood Urea Nitrogen 15 mg/dl Creatinine 0.78 mg/dl Est Creatinine Clear Calc Drug Dose 116.8 ml/min Estimated GFR () 100.2 Estimated GFR (Non- 86.5 BUN/Creatinine Ratio 18.7 Random Glucose 190 mg/dl Calcium Level 8.9 mg/dl Total Bilirubin 0.6 mg/dl Direct Bilirubin 0.2 mg/dl Aspartate Amino Transf (AST/SGOT) 28 U/L Alanine Aminotransferase (ALT/SGPT) 24 U/L Alkaline Phosphatase 146 U/L Pro-B-Type Natriuretic Peptide 370 pg/ml Total Protein 6.6 gm/dl Albumin 2.7 gm/dl Lipase 91 U/L Problem List Medical Problems: (1) Altered mental status Status: Acute (2) CO2 retention Status: Acute (3) Hypoxemia Status: Acute (4) Intertrochanteric fracture of right hip Status: Acute (5) Right wrist fracture Status: Acute (6) Sepsis Status: Acute (7) Ureteral stone Status: Acute (8) Urinary retention Status: Acute Past History BPH, high cholesterol, hypertension, osteoarthritis, other (lung disease) Past Surgical History: cholecystectomy, other (circumcision, knee, ankle and hip surgery after fracture) Family History Diabetes mellitus Social History Hx Tobacco Use In Past Year?: No Smoking: non-smoker Alcohol: socially Drug use: none Marital status: single Housing status: lives with family Occupation status: retired Immunizations History of Influenza Vaccine: Unknown History of Tetanus Vaccine?: No History of Pneumococcal: Yes History of Hepatitis B Vaccine: No Allergies Coded Allergies: No Known Allergies (Unverified , 12/20/17) Medications Home Medications: Home Meds and Scripts Medications Dose Route/Sig Max Daily Dose Days Date Category Dose Instructions Flomax (Tamsulosin Hcl) 0.4 Mg Cap 0.4 Mg PO DAILY 02/03/18 Reported Florastor (Saccharomyces Boulardii) 250 Mg Cap 250 Mg PO BID 02/03/18 Reported Cipro (Ciprofloxacin Hcl) 500 Mg Tab 500 Mg PO BID 02/03/18 Reported BEGIN 01/30/18 X 7 DAYS Citalopram Hydrobromide (Citalopram) 20 Mg Tab 20 Mg PO DAILY 01/30/18 Reported Vitamin E 400 Iu (Vitamin E) 400 Unit Cap 400 Inter.unit PO DAILY 01/30/18 Reported Aspirin Ec (Aspirin) 81 Mg Tab 81 Mg PO DAILY 01/30/18 Reported Melatonin 5 Mg Tab 5 Mg PO HS PRN 01/30/18 Reported Oxygen Gas 2 Liters NA HS 01/30/18 Reported Lopressor (Metoprolol Tartrate) 25 Mg Tab 12.5 Mg PO BID 01/30/18 Reported Neurontin (Gabapentin) 400 Mg Cap 400 Mg PO TID 01/30/18 Reported Xarelto (Rivaroxaban) 10 Mg Tab 20 Mg PO DAILY 12/20/17 Reported [place]-3 (Fish Oil) 1 Ea Cap 1 Cap PO DAILY 11/14/17 Reported Multivitamin (Multivitamins) Tab 1 Tab PO DAILY 11/14/17 Reported Lipitor (Atorvastatin Calcium) 40 Mg Tab 20 Mg PO HS 10/27/14 Reported Gemfibrozil 600 Mg Tab 600 Mg PO BID 10/27/14 Reported Inpatient Medications: Current Inpatient Medications Medications (Trade) Dose Ordered Sig/Lacey Route Start Time Stop Time Status Last Admin Dose Admin Vancomycin HCl 2000 mg/Sodium Chloride 540 ml @ 200 mls/hr NOW STAT IV 02/03/18 18:22 02/03/18 21:03 Cefepime HCl 1000 mg/Dextrose 111 ml @ 200 mls/hr NOW STAT IV 02/03/18 18:22 02/03/18 18:55 Azithromycin 500 mg/Dextrose 255 ml @ 125 mls/hr ONE STAT IV 02/03/18 18:22 02/03/18 20:24 Miscellaneous Information (Consult) 1 ea UD PRN N/A 02/03/18 18:30 03/05/18 18:29 Review of Systems Review of Systems Constitutional: No fever, No chills Eyes: No blurred vision, No double vision Neurological: No passing out, No numbness/tingling Endocrine: No excessive thirst Gastrointestinal: + abdominal pain Cardiovascular: No chest pain Respiratory: + shortness of breath Skin: No boils Musculoskeletal: + joint pain Blood / Lymphatic: No swollen glands Ears / Nose / Throat: No sinus Psychologic / Mental: No trouble remembering Male : + see HPI, + weak stream Physical Exam Vital Signs: Vital Signs Past 12 Hours Date Time Temp Pulse Resp B/P (MAP) Pulse Ox O2 Delivery O2 Flow Rate FiO2 02/03/18 17:52 87 22 96 Nasal Cannula 2.0 02/03/18 16:21 37.0 85 20 130/73 81 Nasal Cannula 2.0 Physical Exam: General Appearance: no apparent distress, + obese ENT: normal ENT inspection, hearing grossly normal Respiratory/Chest: no respiratory distress, no accessory muscle use Cardiovascular: no JVD Gastrointestinal: Bladder: palpable Renal: normal renal Liver: normal liver Spleen: normal spleen Extremities: non-tender Neurologic/Psychiatric: alert Assessment & Plan Assessment & Plan A/P 77 yo male with urinary retention, inability to place small. 20 fr coude placed with 10 cc H2O - drainage of concentrated urine, 1600 cc with relief of pressure. Patient being admitted per ER service. Start finasteride for BPH and retention. Seen history of falls and fracture will avoid alpha-blockers. Leave small in place until he is seen by our service as outpatient - pending visit, will plan on cysto at that time. Thank you for allowing us to participate in this patient's care. Will sign off, see as outpatient, recall service PRN new questions or concerns.
[2018-02-03] MEDS ORDERED: ACETAMINOPHEN 325 MG TAB PO PRN (19:30)
[2018-02-03] MEDS ORDERED: ONDANSETRON INJ 2 MG/ML 2 ML VIAL IV PRN (19:30)
[2018-02-03] MEDS ORDERED: CALC500T72 PO (19:46)
[2018-02-03] MEDS ORDERED: NRN/600 PO (19:46)
[2018-02-03] MEDS ORDERED: PROMETHAZINE HCL INJ 12.5 MG in SODIUM CHLORIDE 0.9% 50ML 50 ML IV PRN (20:15)
[2018-02-03 20:30] VITALS: PULSE 83; O2SAT 94
--- NOTE | 2018-02-03 20:36 | History and Physical ---
History & Physical Date & Time of Service: Feb 03, 2018 ~ 19:00 Chief Complaint: Unable to urinate Primary Care Physician: Maico Mcdonald D.O. History of Present Illness 77-year-old male who presents to the ER with inability to urinate. Patient was recently discharged from [facility] after receiving therapy after having hip and wrist fractures. Patient was seen in the ER last week for urinary retention. Catheter was unable to be placed however patient was able to urinate on his own before leaving the ED. Patient has had persistent difficulty urinating. He therefore presented back to the ED today. Patient denies any other associated symptoms. He denies chest pain and shortness of breath. He reports an occasional cough productive for clear sputum which is chronic. He has chronic lower extremity edema which is unchanged from baseline. No lightheadedness, dizziness, diaphoresis, or syncopal events. No fevers or chills. No abdominal pain, nausea, vomiting, or diarrhea. Son is the bedside he reports some mild intermittent confusion. He also has not been getting around as easily as he was at rehab. In the ED, Dr. Norman evaluated the patient at the bedside and was able to place a Foster catheter. Labs are showing CO2 retention. Chest x-ray shows a possible pneumonia. Patient saturating well on his chronic 2 L of oxygen. He was given IV Solu-Medrol, DuoNeb, IV vancomycin, IV cefepime, and IV azithromycin. 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 (10) Right wrist fracture Permanent Comment: S/P repair Status: Chronic Surgical Problems: (1) H/O umbilical hernia repair Status: Chronic (2) History of knee surgery Status: Resolved (3) Hx of cholecystectomy Status: Chronic Family History Diabetes mellitus Social History Smoking Status: Never Smoker Alcohol Use: occasionally Allergies Coded Allergies: No Known Allergies (Unverified , 12/20/17) Home Medications Scheduled Aspirin (Aspirin Ec), 81 MG PO DAILY Atorvastatin (Lipitor), 20 MG PO HS Calcium Ascorbate (Vitamin C), 1 TAB PO DAILY Ciprofloxacin Hcl (Cipro), 500 MG PO BID Citalopram (Citalopram Hydrobromide), 20 MG PO DAILY Fish Oil ([place]-3), 1 CAP PO DAILY Gabapentin (Neurontin), 400 MG PO BID Gabapentin (Neurontin), 1 TAB PO HS Gemfibrozil (Gemfibrozil), 600 MG PO BID Metoprolol Tartrate (Lopressor) (Lopressor), 12.5 MG PO BID Multivitamin (Multivitamin), 1 TAB PO DAILY Rivaroxaban (Xarelto), 20 MG PO DAILY Tamsulosin Hcl (Flomax), 0.4 MG PO DAILY Scheduled PRN Melatonin (Melatonin), 5 MG PO HS PRN for Sleep Miscellaneous Medications Home O2 Therapy (Oxygen), 2 LITERS NA Review of Systems ROS per HPI, all other systems reviewed and negative Physical Exam Vital Signs Date Time Temp Pulse Resp B/P (MAP) Pulse Ox O2 Delivery O2 Flow Rate FiO2 02/03/18 19:57 83 20 134/83 95 Nasal Cannula 3.0 02/03/18 18:53 78 20 95 Nasal Cannula 2.0 02/03/18 17:52 87 22 96 Nasal Cannula 2.0 02/03/18 16:21 37.0 85 20 130/73 81 Nasal Cannula 2.0 General Appearance: WD/WN, no apparent distress, + obese Head: normocephalic, atraumatic Eyes: normal inspection, EOMI, sclerae normal ENT: hearing grossly normal, + pertinent finding (Mucous membranes moist) Neck: supple, no JVD, trachea midline Respiratory/Chest: no respiratory distress, + decreased breath sounds Cardiovascular: regular rate, rhythm, normal peripheral pulses, + pertinent finding (+2 edema BLE) Abdomen/GI: normal bowel sounds, non tender, soft, no organomegaly Extremities/Musculoskelatal: normal inspection, no calf tenderness, normal capillary refill Neurologic/Psych: no motor/sensory deficits, alert, normal mood/affect, oriented x 3 Skin: normal color, warm/dry Diagnostics Laboratory Results Results Past 24 Hours Test 02/03/18 16:44 02/03/18 17:01 02/03/18 19:38 02/03/18 19:39 Range/Units White Blood Count 5.05 4.8-10.8 K/uL Red Blood Count 4.28 4.7-6.1 M/uL Hemoglobin 14.2 14.0-18.0 g/dL Hematocrit 45.9 42-52 % Mean Corpuscular Volume 107.2 80-100 fL Mean Corpuscular Hemoglobin 33.2 25-34 pg Mean Corpuscular Hemoglobin Concent 30.9 32-36 g/dl Platelet Count 131 130-400 K/uL Mean Platelet Volume 11.5 7.4-10.4 fL Neutrophils (%) (Auto) 75.0 % Lymphocytes (%) (Auto) 11.1 % Monocytes (%) (Auto) 8.9 % Eosinophils (%) (Auto) 4.2 % Basophils (%) (Auto) 0.6 % Neutrophils # (Auto) 3.79 1.4-6.5 K/uL Lymphocytes # (Auto) 0.56 1.2-3.4 K/uL Monocytes # (Auto) 0.45 0.11-0.59 K/uL Eosinophils # (Auto) 0.21 0-0.5 K/uL Basophils # (Auto) 0.03 0-0.2 K/uL RDW Standard Deviation 53.0 36.4-46.3 fL RDW Coefficient of Variation 13.6 11.5-14.5 % Immature Granulocyte % (Auto) 0.2 % Immature Granulocyte # (Auto) 0.01 0.00-0.02 K/uL Venous Blood pH 7.22 7.36-7.41 Venous Blood Partial Pressure CO2 96 38.0-50.0 mmHg Venous Blood Partial Pressure O2 38 mmHg Venous Blood HCO3 39 mmol/L Venous Blood Oxygen Saturation 65.9 % Venous Blood Base Excess 6.9 mEq/L Sodium Level 140 136-145 mmol/L Potassium Level 4.6 3.5-5.1 mmol/L Chloride Level 101 98-107 mmol/L Carbon Dioxide Level 39 21-32 mmol/L Anion Gap -1.0 3-11 mmol/L Blood Urea Nitrogen 15 7-18 mg/dl Creatinine 0.78 0.60-1.40 mg/dl Est Creatinine Clear Calc Drug Dose 116.8 ml/min Estimated GFR () 100.2 Estimated GFR (Non- 86.5 BUN/Creatinine Ratio 18.7 10-20 Random Glucose 190 70-99 mg/dl Calcium Level 8.9 8.5-10.1 mg/dl Total Bilirubin 0.6 0.2-1 mg/dl Direct Bilirubin 0.2 0-0.2 mg/dl Aspartate Amino Transf (AST/SGOT) 28 15-37 U/L Alanine Aminotransferase (ALT/SGPT) 24 12-78 U/L Alkaline Phosphatase 146 45-117 U/L Pro-B-Type Natriuretic Peptide 370 0-1800 pg/ml Total Protein 6.6 6.4-8.2 gm/dl Albumin 2.7 3.4-5.0 gm/dl Lipase 91 73-393 U/L Test 02/03/18 19:53 Range/Units Microbiology Results 02/03/18 Blood Culture, Received Pending 02/03/18 Blood Culture, Received Pending 02/03/18 Urine Culture, Lisa Batch Pending Diagnostic Radiology CXR IMPRESSION: 1. Cardiomegaly and mild pulmonary vascular congestion without overt pulmonary edema. 2. Hypoinflation with subsegmental bibasilar and right midlung opacities suggest atelectasis or pneumonia. Impression Assessment and Plan Acute on chronic hypercapnic respiratory failure Possible pneumonia -Admit to telemetry -Patient presenting with a chief complaint of urinary retention however in the ED found to have hypercapnia and possible pneumonia -PH 7.26, PCO2 85 -Place patient on BiPAP, follow serial ABGs -S/P IV vancomycin, cefepime, and azithromycin in the ED; will continue with doxycycline and Rocephin for now -Do not suspect sepsis -Speech therapy eval to evaluate for aspiration due to possible pneumonia in the right midlung -As needed nebs Urinary retention -Doctor Emerson Degroot, Foster catheter in the ED -Started on finasteride, continue home Flomax -Urology to follow Prolonged QTC -Mild, QTC 485 -follow daily EKG, avoid QTC prolonging agents when able Hypertension -Continue metoprolol History of DVT -Provoked, postoperative DVT after right hip surgery -Continue Xarelto Dyslipidemia -Continue statin Depression -Continue citalopram DVT prophylaxis -On Xarelto CODE STATUS -Patient is a DNR/DNI as per my discussion with him Disposition -In my clinical judgment this beneficiary meets acute admission criteria, established by [facility], that includes being hospitalized through two midnights. Attending addendum: The patient was seen and examined the ER in presence of the son. He came in with urinary retention with confusion and noted to have UTI with hypercapnic respiratory failure. He did not have any complaints during my examination. Specifically no chest pain, no shortness of breath, no palpitation, no abdominal pain or distention, no nausea and/or vomiting. He was feeling a lot better since the ER. On examination in the emergency room, he was not having any acute distress. Chest-decreased breath sounds both sites likely due to body habitus, Heart-S1, S2 regular, no murmur appreciated. Abdomen-soft, nontender, no hypogastric tenderness, bowel sounds present. Extremities-trace to 1+ edema bilaterally. 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 Has hyper [place] respiratory failure with history of sleep apnea and now has a UTI with Foster. Started on appropriate antibiotic on admission and was seen by urologist Review with assessment and plan as outlined above. Dr. Brittany Ortega Resuscitation Status VTE Prophylaxis Will order VTE Prophylaxis: Yes
[2018-02-03 22:32] VITALS: BP 133/77; PULSE 88; TEMP 36.3; O2SAT 90; Ht 180.3 cm; Wt 153.8 kg
[2018-02-03] MEDS ORDERED: PNEUMOCOCCAL POLYSACCHARIDES 25 MCG/0.5 ML VIAL/SYR IM. ONE (23:45)
[2018-02-03] MEDS ORDERED: PNEUMOCOCCAL ADMINISTRATION CHARGE ONE (23:45)
[2018-02-03] MEDS: GABAPENTIN 600 MG TAB PO SCH (23:51)
[2018-02-03] MEDS: DOXYCYCLINE HYCLATE 100 MG CAP PO SCH (23:51)
[2018-02-03] MEDS: METOPROLOL TARTRATE 25 MG TAB PO SCH (23:52)
[2018-02-03] MEDS: ATORVASTATIN 20 MG TAB PO SCH (23:52)
[2018-02-03] MEDS: GEMFIBROZIL 600 MG TAB PO SCH (23:52)
[2018-02-04] VITALS (8 sets, daily range): BP systolic 109–158; BP diastolic 65–81; PULSE 74–85; TEMP 36.4–36.7; O2SAT 92–96
[2018-02-04 05:28] LABS: HEMATOCRIT 42.8 % (42-52); HEMOGLOBIN 13.5 g/dL (14.0-18.0); MEAN CELL VOLUME 105.2 fL (80-100); MEAN CORPUSCULAR HEMOGLOBIN 33.2 pg (25-34); MEAN CORPUSCULAR HGB CONC 31.5 g/dl (32-36); MEAN PLATELET VOLUME 11.5 fL (7.4-10.4); PLATELET COUNT 121 K/uL (130-400); RED CELL DISTRIBUTION WIDTH CV 13.4 % (11.5-14.5); RED CELL DISTRIBUTION WIDTH SD 51.5 fL (36.4-46.3); WHITE BLOOD COUNT 4.89 K/uL (4.8-10.8)
[2018-02-04 05:46] LABS: CALCIUM 8.9 mg/dl (8.5-10.1); CREATININE 0.72 mg/dl (0.60-1.40); POTASSIUM 4.9 mmol/L (3.5-5.1)
[2018-02-04] MEDS: GABAPENTIN 400 MG CAP PO SCH ×3 (07:38→20:54)
[2018-02-04] MEDS: TAMSULOSIN HCL 0.4 MG CAP PO SCH (07:38)
[2018-02-04] MEDS: DOXYCYCLINE HYCLATE 100 MG CAP PO SCH (07:38)
[2018-02-04] MEDS: RIVAROXABAN 20 MG TAB PO SCH (07:38)
[2018-02-04] MEDS: MULTIVITAMIN TAB PO SCH (07:38)
[2018-02-04] MEDS: CITALOPRAM 20 MG TAB PO SCH (07:38)
[2018-02-04] MEDS: GEMFIBROZIL 600 MG TAB PO SCH ×2 (07:38→20:54)
[2018-02-04] MEDS: FINASTERIDE 5 MG TAB PO SCH (07:38)
[2018-02-04] MEDS: ASPIRIN 81 MG ECTAB PO SCH (07:38)
[2018-02-04] MEDS: METOPROLOL TARTRATE 25 MG TAB PO SCH ×2 (07:38→20:54)
[2018-02-04] MEDS: OMEGA-3 (PURIFIED FISH OIL) 1 GM CAP PO SCH (07:39)
[2018-02-04] MEDS ORDERED: AZITHROMYCIN 250 MG TAB PO SCH (09:00)
[2018-02-04] MEDS ORDERED: CEFTRIAXONE SOD INJ 1 GM in DEXTROSE 5% ADD-VANTAGE 50ML 50 ML IV SCH (09:00)
--- NOTE | 2018-02-04 09:01 | Progress Note ---
Subjective Date of Service: Feb 04, 2018. Subjective Pt evaluation today including: conversation w/ patient, physical exam, lab review, review of studies, review of inpatient medication list Saw/examined the patient in room 201 He is resting comfortably in no distress No respiratory issues to note today Denies any pain; Foster catheter is in and draining well Problem List Medical Problems: (1) Acute on chronic respiratory failure with hypoxia and hypercapnia Status: Acute (2) Acute urinary retention Status: Acute (3) Altered mental status Status: Acute (4) CO2 retention Status: Acute (5) Hypoxemia Status: Acute (6) Intertrochanteric fracture of right hip Status: Acute (7) Pneumonia Status: Acute (8) Right wrist fracture Status: Acute (9) Sepsis Status: Acute (10) Ureteral stone Status: Acute (11) Urinary retention Status: Acute (12) Urinary tract infection Status: Acute Review of Systems Respiratory: + shortness of breath (at baseline), No cough, No sputum, No wheezing, No dyspnea on exertion, No dyspnea at rest, No hemoptysis Cardiac: + edema, No chest pain, No palpitations Male : + problem reported (urinary retention) Heme: No abnormal bleeding/bruising Medications Current Inpatient Medications Medications (Trade) Dose Ordered Sig/Lacey Route Start Time Stop Time Status Last Admin Dose Admin Finasteride (Proscar Tab) 5 mg QAM PO 02/04/18 09:00 03/06/18 08:59 02/04/18 07:38 5 MG Acetaminophen (Tylenol Tab) 650 mg Q4H PRN PO 02/03/18 19:30 03/05/18 19:29 Ceftriaxone Sodium 1 gm/ Dextrose 50 ml @ 100 mls/hr Q24H IV 02/04/18 09:00 02/11/18 08:59 Aspirin (Ecotrin Tab) 81 mg DAILY PO 02/04/18 09:00 03/06/18 08:59 02/04/18 07:38 81 MG Atorvastatin Calcium (Lipitor Tab) 20 mg HS PO 02/03/18 21:00 03/05/18 20:59 02/03/18 23:52 20 MG Citalopram Hydrobromide (celeXA TAB) 20 mg DAILY PO 02/04/18 09:00 03/06/18 08:59 02/04/18 07:38 20 MG Fish Oil ([place]-3 (Purified Fish Oil) Cap) 1 gm DAILY PO 02/04/18 09:00 03/06/18 08:59 02/04/18 07:39 1 GM Gabapentin (Neurontin Cap) 400 mg [id number] PO 02/04/18 07:00 03/06/18 06:59 02/04/18 07:38 400 MG Gabapentin (Neurontin Tab) 600 mg HS PO 02/03/18 21:00 03/05/18 20:59 02/03/18 23:51 600 MG Gemfibrozil (Lopid Tab) 600 mg BID PO 02/03/18 21:00 03/05/18 20:59 02/04/18 07:38 600 MG Metoprolol Tartrate (Lopressor Tab) 12.5 mg BID PO 02/03/18 21:00 03/05/18 20:59 02/04/18 07:38 12.5 MG Multivitamins (Multivitamin Tab) 1 tab DAILY PO 02/04/18 09:00 03/06/18 08:59 02/04/18 07:38 1 TAB Rivaroxaban (Xarelto Tab) 20 mg DAILY PO 02/04/18 09:00 03/06/18 08:59 02/04/18 07:38 20 MG Tamsulosin HCl (Flomax Cap) 0.4 mg DAILY PO 02/04/18 09:00 03/06/18 08:59 02/04/18 07:38 0.4 MG Promethazine HCl 12.5 mg/Sodium Chloride 50.5 ml @ 204 mls/hr Q6H PRN IV 02/03/18 20:15 03/05/18 20:14 Doxycycline Hyclate (Vibramycin Cap) 100 mg BID PO 02/03/18 21:00 02/10/18 20:59 02/04/18 07:38 100 MG Objective Vital Signs Date Time Temp Pulse Resp B/P (MAP) Pulse Ox O2 Delivery O2 Flow Rate FiO2 02/04/18 04:07 36.5 77 20 109/70 (83) 95 BiPAP 02/04/18 04:00 BiPAP 02/04/18 00:22 85 92 30 02/03/18 23:59 Nasal Cannula 2.0 02/03/18 22:32 36.3 88 22 133/77 90 Nasal Cannula 2.0 02/03/18 22:12 87 20 144/77 96 BiPAP 30 02/03/18 21:00 89 20 110/47 96 BiPAP 30 02/03/18 20:30 83 94 30 02/03/18 19:57 83 20 134/83 95 Nasal Cannula 3.0 02/03/18 18:53 78 20 95 Nasal Cannula 2.0 02/03/18 17:52 87 22 96 Nasal Cannula 2.0 02/03/18 16:21 37.0 85 20 130/73 81 Nasal Cannula 2.0 Physical Exam General Appearance: no apparent distress, + obese Respiratory/Chest: no respiratory distress, no accessory muscle use, + decreased breath sounds Cardiovascular: regular rate, rhythm, no murmur Extremities: + swelling (+2 pitting edema b/l LE), + pertinent finding Neurologic/Psychiatric: no motor/sensory deficits, alert, normal mood/affect Laboratory Results Last 24 Hours Test 02/03/18 17:01 02/03/18 19:38 02/03/18 19:53 02/03/18 20:20 White Blood Count 5.05 K/uL Red Blood Count 4.28 M/uL Hemoglobin 14.2 g/dL Hematocrit 45.9 % Mean Corpuscular Volume 107.2 fL Mean Corpuscular Hemoglobin 33.2 pg Mean Corpuscular Hemoglobin Concent 30.9 g/dl Platelet Count 131 K/uL Mean Platelet Volume 11.5 fL Neutrophils (%) (Auto) 75.0 % Lymphocytes (%) (Auto) 11.1 % Monocytes (%) (Auto) 8.9 % Eosinophils (%) (Auto) 4.2 % Basophils (%) (Auto) 0.6 % Neutrophils # (Auto) 3.79 K/uL Lymphocytes # (Auto) 0.56 K/uL Monocytes # (Auto) 0.45 K/uL Eosinophils # (Auto) 0.21 K/uL Basophils # (Auto) 0.03 K/uL RDW Standard Deviation 53.0 fL RDW Coefficient of Variation 13.6 % Immature Granulocyte % (Auto) 0.2 % Immature Granulocyte # (Auto) 0.01 K/uL Venous Blood pH 7.22 Venous Blood Partial Pressure CO2 96 mmHg Venous Blood Partial Pressure O2 38 mmHg Venous Blood HCO3 39 mmol/L Venous Blood Oxygen Saturation 65.9 % Venous Blood Base Excess 6.9 mEq/L Sodium Level 140 mmol/L Potassium Level 4.6 mmol/L Chloride Level 101 mmol/L Carbon Dioxide Level 39 mmol/L Anion Gap -1.0 mmol/L Blood Urea Nitrogen 15 mg/dl Creatinine 0.78 mg/dl Est Creatinine Clear Calc Drug Dose 116.8 ml/min Estimated GFR () 100.2 Estimated GFR (Non- 86.5 BUN/Creatinine Ratio 18.7 Random Glucose 190 mg/dl Calcium Level 8.9 mg/dl Total Bilirubin 0.6 mg/dl Direct Bilirubin 0.2 mg/dl Aspartate Amino Transf (AST/SGOT) 28 U/L Alanine Aminotransferase (ALT/SGPT) 24 U/L Alkaline Phosphatase 146 U/L Pro-B-Type Natriuretic Peptide 370 pg/ml Total Protein 6.6 gm/dl Albumin 2.7 gm/dl Lipase 91 U/L Lactic Acid Level 1.0 mmol/L Arterial Blood pH 7.26 Arterial Blood Partial Pressure CO2 85 mmHg Arterial Blood Partial Pressure O2 83 mm/Hg Arterial Blood HCO3 37 mmol/L Arterial Blood Oxygen Saturation 94.6 % Arterial Blood Base Excess 7.1 mEq/L Arterial Blood Gas Delivery 4 L Darrell Test POS Urine Color ORANGE Urine Appearance TURBID Urine pH 5.0 Urine Specific [place] 1.027 Urine Protein 1+ Urine Glucose (UA) NEG Urine Ketones NEG Urine Occult Blood 3+ Urine Nitrite NEG Urine Bilirubin NEG Urine Urobilinogen NEG Urine Leukocyte Esterase MODERATE Urine WBC (Auto) 10-30 /hpf Urine RBC (Auto) >30 /hpf Urine Hyaline Casts (Auto) 1-5 /lpf Urine Epithelial Cells (Auto) 10-20 /lpf Urine Bacteria (Auto) NEG Urine Yeast (Auto) BUDDING Test 02/03/18 22:54 02/04/18 05:17 Arterial Blood pH 7.32 Arterial Blood Partial Pressure CO2 70 mmHg Arterial Blood Partial Pressure O2 62 mm/Hg Arterial Blood HCO3 35 mmol/L Arterial Blood Oxygen Saturation 90.9 % Arterial Blood Base Excess 6.8 mEq/L Arterial Blood Gas Delivery 3L Darrell Test POS White Blood Count 4.89 K/uL Red Blood Count 4.07 M/uL Hemoglobin 13.5 g/dL Hematocrit 42.8 % Mean Corpuscular Volume 105.2 fL Mean Corpuscular Hemoglobin 33.2 pg Mean Corpuscular Hemoglobin Concent 31.5 g/dl RDW Standard Deviation 51.5 fL RDW Coefficient of Variation 13.4 % Platelet Count 121 K/uL Mean Platelet Volume 11.5 fL Sodium Level 137 mmol/L Potassium Level 4.9 mmol/L Chloride Level 101 mmol/L Carbon Dioxide Level 35 mmol/L Anion Gap 1.0 mmol/L Blood Urea Nitrogen 16 mg/dl Creatinine 0.72 mg/dl Est Creatinine Clear Calc Drug Dose 126.6 ml/min Estimated GFR () 103.6 Estimated GFR (Non- 89.3 BUN/Creatinine Ratio 21.7 Random Glucose 250 mg/dl Calcium Level 8.9 mg/dl Thyroid Stimulating Hormone (TSH) 0.657 uIu/ml Assessment and Plan This is a 77 year old male with a past medical history of morbid obesity, obesity hypoventilation syndrome, ABDULLAHI on 2-3L of O2 nocturnally, HTN, HLD, s/p fracture and repair of R hip in October 2017 with subsequent DVT now on long- term anticoagulation - presents with urinary retention issues and subsequently found to have significant hypercapnia. Acute on Chronic Hypercapnic Respiratory Failure in the setting of Obstructive Sleep Apnea Obesity-Hypoventilation Syndrome - patient with obesity hypoventilation syndrome, also has ABDULLAHI and should be using bipap nocturnally as recommended by pulmonology - chronic CO2 retention with baseline arterial CO2 around the 60s-70s - on admission, patient was hypoxic and ABG performed suggesting significant acidosis and pCO2 around 85 - was placed on bipap and repeat ABGs suggest improvement of CO2 - patient does not use Bipap at home and uses around 2L of O2 nocturnally instead - repeat ABG on 02/05, if closer to baseline, can likely d/c home - speech therapy pending - d/c'd all antibiotics as this does not appear to be infectious in nature Hx. of R LE DVT - currently on Xarelto - provoked DVT; with hx. of R hip repair in October 2017 - will likely need 6 months of tx. Hx. of R Hip Fracture/Repair - patient is now WBAT on that R LE - receives PT/OT at home - will consult PT/OT while inpatient to determine ambulatory status - uses walker for support after surgery; prior to that, was not using assistive devices - lives alone at home; has son for support, who provides him meals Urinary Retention - likely secondary to BPH - currently on Flomax, started on Finasteride - catheter to remain in place until outpatient urology appointment and cystoscopy HTN - blood pressure is stable - continue Lopressor DVT ppx - Xarelto DNR/DNI
[2018-02-04] MEDS ORDERED: VANCOMYCIN CONSULT ACTIVE PRN (15:30)
[2018-02-04] MEDS ORDERED: ALUMINUM/MAGNESIUM/SIMETH (MAALOX MAX) 30 ML UDC PO PRN (15:30)
--- NOTE | 2018-02-04 16:23 | Pharmacy Progress Note ---
Pharmacy Antibiotic Consult Date of Service: Feb 04, 2018. Pharmacy Dosing Scope Pharmacy is consulted to initiate VANCOMYCIN IV dosing therapy, order appropriate labs and adjust drug dose/frequency. Subjective The patient is a 77 year old male admitted on Feb 03, 2018 at 20:21. Objective Height (Feet): 5 Height (Inches): 11.00 Weight (Kilograms): 151.500 Lab Results (24hrs): Test 02/03/18 17:01 02/03/18 19:38 02/03/18 19:53 02/03/18 20:20 White Blood Count 5.05 K/uL (4.8-10.8) Red Blood Count 4.28 M/uL (4.7-6.1) Hemoglobin 14.2 g/dL (14.0-18.0) Hematocrit 45.9 % (42-52) Mean Corpuscular Volume 107.2 fL (80-100) Mean Corpuscular Hemoglobin 33.2 pg (25-34) Mean Corpuscular Hemoglobin Concent 30.9 g/dl (32-36) Platelet Count 131 K/uL (130-400) Mean Platelet Volume 11.5 fL (7.4-10.4) Neutrophils (%) (Auto) 75.0 % Lymphocytes (%) (Auto) 11.1 % Monocytes (%) (Auto) 8.9 % Eosinophils (%) (Auto) 4.2 % Basophils (%) (Auto) 0.6 % Neutrophils # (Auto) 3.79 K/uL (1.4-6.5) Lymphocytes # (Auto) 0.56 K/uL (1.2-3.4) Monocytes # (Auto) 0.45 K/uL (0.11-0.59) Eosinophils # (Auto) 0.21 K/uL (0-0.5) Basophils # (Auto) 0.03 K/uL (0-0.2) RDW Standard Deviation 53.0 fL (36.4-46.3) RDW Coefficient of Variation 13.6 % (11.5-14.5) Immature Granulocyte % (Auto) 0.2 % Immature Granulocyte # (Auto) 0.01 K/uL (0.00-0.02) Venous Blood pH 7.22 (7.36-7.41) Venous Blood Partial Pressure CO2 96 mmHg (38.0-50.0) Venous Blood Partial Pressure O2 38 mmHg Venous Blood HCO3 39 mmol/L Venous Blood Oxygen Saturation 65.9 % Venous Blood Base Excess 6.9 mEq/L Sodium Level 140 mmol/L (136-145) Potassium Level 4.6 mmol/L (3.5-5.1) Chloride Level 101 mmol/L (98-107) Carbon Dioxide Level 39 mmol/L (21-32) Anion Gap -1.0 mmol/L (3-11) Blood Urea Nitrogen 15 mg/dl (7-18) Creatinine 0.78 mg/dl (0.60-1.40) Est Creatinine Clear Calc Drug Dose 116.8 ml/min Estimated GFR () 100.2 Estimated GFR (Non- 86.5 BUN/Creatinine Ratio 18.7 (10-20) Random Glucose 190 mg/dl (70-99) Calcium Level 8.9 mg/dl (8.5-10.1) Total Bilirubin 0.6 mg/dl (0.2-1) Direct Bilirubin 0.2 mg/dl (0-0.2) Aspartate Amino Transf (AST/SGOT) 28 U/L (15-37) Alanine Aminotransferase (ALT/SGPT) 24 U/L (12-78) Alkaline Phosphatase 146 U/L (45-117) Pro-B-Type Natriuretic Peptide 370 pg/ml (0-1800) Total Protein 6.6 gm/dl (6.4-8.2) Albumin 2.7 gm/dl (3.4-5.0) Lipase 91 U/L (73-393) Lactic Acid Level 1.0 mmol/L (0.4-2.0) Arterial Blood pH 7.26 (7.35-7.45) Arterial Blood Partial Pressure CO2 85 mmHg (35-46) Arterial Blood Partial Pressure O2 83 mm/Hg (80-95) Arterial Blood HCO3 37 mmol/L (19-24) Arterial Blood Oxygen Saturation 94.6 % (90-95) Arterial Blood Base Excess 7.1 mEq/L (-9-1.8) Arterial Blood Gas Delivery 4 L Darrell Test POS (POS) Urine Color ORANGE Urine Appearance TURBID (CLEAR) Urine pH 5.0 (4.5-7.5) Urine Specific [place] 1.027 (1.000-1.030) Urine Protein 1+ (NEG) Urine Glucose (UA) NEG (NEG) Urine Ketones NEG (NEG) Urine Occult Blood 3+ (NEG) Urine Nitrite NEG (NEG) Urine Bilirubin NEG (NEG) Urine Urobilinogen NEG (NEG) Urine Leukocyte Esterase MODERATE (NEG) Urine WBC (Auto) 10-30 /hpf (0-5) Urine RBC (Auto) >30 /hpf (0-4) Urine Hyaline Casts (Auto) 1-5 /lpf (0-5) Urine Epithelial Cells (Auto) 10-20 /lpf (0-5) Urine Bacteria (Auto) NEG (NEG) Urine Yeast (Auto) BUDDING (NONE PRSENT) Test 02/03/18 22:54 02/04/18 05:17 02/04/18 09:15 Arterial Blood pH 7.32 (7.35-7.45) Arterial Blood Partial Pressure CO2 70 mmHg (35-46) Arterial Blood Partial Pressure O2 62 mm/Hg (80-95) Arterial Blood HCO3 35 mmol/L (19-24) Arterial Blood Oxygen Saturation 90.9 % (90-95) Arterial Blood Base Excess 6.8 mEq/L (-9-1.8) Arterial Blood Gas Delivery 3L Darrell Test POS (POS) White Blood Count 4.89 K/uL (4.8-10.8) Red Blood Count 4.07 M/uL (4.7-6.1) Hemoglobin 13.5 g/dL (14.0-18.0) Hematocrit 42.8 % (42-52) Mean Corpuscular Volume 105.2 fL (80-100) Mean Corpuscular Hemoglobin 33.2 pg (25-34) Mean Corpuscular Hemoglobin Concent 31.5 g/dl (32-36) RDW Standard Deviation 51.5 fL (36.4-46.3) RDW Coefficient of Variation 13.4 % (11.5-14.5) Platelet Count 121 K/uL (130-400) Mean Platelet Volume 11.5 fL (7.4-10.4) Sodium Level 137 mmol/L (136-145) Potassium Level 4.9 mmol/L (3.5-5.1) Chloride Level 101 mmol/L (98-107) Carbon Dioxide Level 35 mmol/L (21-32) Anion Gap 1.0 mmol/L (3-11) Blood Urea Nitrogen 16 mg/dl (7-18) Creatinine 0.72 mg/dl (0.60-1.40) Est Creatinine Clear Calc Drug Dose 126.6 ml/min Estimated GFR () 103.6 Estimated GFR (Non- 89.3 BUN/Creatinine Ratio 21.7 (10-20) Random Glucose 250 mg/dl (70-99) Calcium Level 8.9 mg/dl (8.5-10.1) Thyroid Stimulating Hormone (TSH) 0.657 uIu/ml (0.300-4.500) Vitamin B12 Level 1361 pg/mL (211-911) Folate 15.54 ng/mL (>5.38) Micro Results: * 02/03/18 -- Urine, Cath -- NG * 02/03/18 -- Blood x 2 -- GPC in 1 * 02/04/18 -- Nasal -- (-) MRSA Recent Pertinent Medications Item Value Date Time Vancomycin HCl 540 ml @ 200 mls/hr 02/03/18 1822 2000 mg/Sodium NOW STAT/IV 02/03/18 1950 Chloride Assessment & Plan 77yo morbidly obese male ordered VANCOMYCIN after 10/27 blood cx grew GPC. Renal function is good. VANCOMYCIN: * Patient rec'd VANCOMYCIN 2000mg (~13mg/kg) IV x 1 dose in the ER yesterday evening @ 1999. Would expect this dose to be eliminated by now, so will re- load with VANCOMYCIN 2500mg (~17 mg/kg) IV X 1 dose then VANCOMYCIN 1750mg (~12mg/kg) IV every 10 hours. * Estimated Pk parameters: VD ~0.55 L/kg Ke ~0.087 t1/2 ~8 hours * Goal trough level estimate: between 15 - 20 mcg/mL until source of bacteremia is identified. * Trough level has been ordered for: @ 1200, which is prior to Css, but will assess accumulation as well as efficacy. Pharmacy will continue to follow and will adjust dose/frequency as necessary. Thank you
[2018-02-04] MEDS ORDERED: VANCOMYCIN IV 2,500 MG in SODIUM CHLORIDE 0.9% 500ML 500 ML IV SCH (16:30)
[2018-02-04] MEDS: ATORVASTATIN 20 MG TAB PO SCH (20:54)
[2018-02-04] MEDS: GABAPENTIN 600 MG TAB PO SCH (20:56)
[2018-02-04] MEDS ORDERED: VANCOMYCIN IV 1,000 MG in SODIUM CHLORIDE 0.9% 250ML 250 ML IV SCH (21:00)
[2018-02-04] MEDS ORDERED: VANCOMYCIN TROUGH ONE (21:30)
[2018-02-05] MEDS ORDERED: VANCOMYCIN IV 1,750 MG in SODIUM CHLORIDE 0.9% 500ML 500 ML IV SCH (02:00)
[2018-02-05 02:22] VITALS: PULSE 70; O2SAT 95
[2018-02-05 04:35] VITALS: BP 124/83; PULSE 65; TEMP 36.6; O2SAT 93
[2018-02-05 05:56] VITALS: PULSE 68; O2SAT 97
[2018-02-05 06:39] LABS: HEMATOCRIT 40.5 % (42-52); HEMOGLOBIN 12.7 g/dL (14.0-18.0); MEAN CELL VOLUME 103.1 fL (80-100); MEAN CORPUSCULAR HEMOGLOBIN 32.3 pg (25-34); MEAN CORPUSCULAR HGB CONC 31.4 g/dl (32-36); MEAN PLATELET VOLUME 11.4 fL (7.4-10.4); PLATELET COUNT 118 K/uL (130-400); RED CELL DISTRIBUTION WIDTH CV 13.6 % (11.5-14.5); RED CELL DISTRIBUTION WIDTH SD 51.5 fL (36.4-46.3); WHITE BLOOD COUNT 5.68 K/uL (4.8-10.8)
[2018-02-05 07:11] LABS: CALCIUM 8.3 mg/dl (8.5-10.1); CREATININE 0.61 mg/dl (0.60-1.40); POTASSIUM 4.2 mmol/L (3.5-5.1)
[2018-02-05 07:54] VITALS: BP 129/83; PULSE 70; TEMP 35.7; O2SAT 93
[2018-02-05] MEDS: TAMSULOSIN HCL 0.4 MG CAP PO SCH (08:35)
[2018-02-05] MEDS: FINASTERIDE 5 MG TAB PO SCH (08:35)
[2018-02-05] MEDS: CITALOPRAM 20 MG TAB PO SCH (08:35)
[2018-02-05] MEDS: RIVAROXABAN 20 MG TAB PO SCH (08:35)
[2018-02-05] MEDS: GEMFIBROZIL 600 MG TAB PO SCH (08:35)
[2018-02-05] MEDS: MULTIVITAMIN TAB PO SCH (08:35)
[2018-02-05] MEDS: OMEGA-3 (PURIFIED FISH OIL) 1 GM CAP PO SCH (08:35)
[2018-02-05] MEDS: ASPIRIN 81 MG ECTAB PO SCH (08:36)
[2018-02-05] MEDS: METOPROLOL TARTRATE 25 MG TAB PO SCH (08:36)
--- NOTE | 2018-02-05 08:44 | Progress Note ---
Subjective Date of Service: Feb 05, 2018. Subjective Pt evaluation today including: conversation w/ patient, physical exam, lab review, review of studies, review of inpatient medication list Saw/examined the patient in room 201 He's doing well, no problems/issues to note at this time Breathing status is doing better Foster draining dark red urine Problem List Medical Problems: (1) Acute on chronic respiratory failure with hypoxia and hypercapnia Status: Acute (2) Acute urinary retention Status: Acute (3) Altered mental status Status: Acute (4) CO2 retention Status: Acute (5) Hypoxemia Status: Acute (6) Intertrochanteric fracture of right hip Status: Acute (7) Pneumonia Status: Acute (8) Right wrist fracture Status: Acute (9) Sepsis Status: Acute (10) Ureteral stone Status: Acute (11) Urinary retention Status: Acute (12) Urinary tract infection Status: Acute Review of Systems Constitutional: No fever, No chills Respiratory: No cough, No sputum, No shortness of breath Cardiac: No chest pain Abdomen: No pain, No nausea, No vomiting, No diarrhea, No constipation, No GI bleeding Musculoskeletal: No joint pain Male : + hematuria Medications Current Inpatient Medications Medications (Trade) Dose Ordered Sig/Lacey Route Start Time Stop Time Status Last Admin Dose Admin Finasteride (Proscar Tab) 5 mg QAM PO 02/04/18 09:00 03/06/18 08:59 02/04/18 07:38 5 MG Acetaminophen (Tylenol Tab) 650 mg Q4H PRN PO 02/03/18 19:30 03/05/18 19:29 Aspirin (Ecotrin Tab) 81 mg DAILY PO 02/04/18 09:00 03/06/18 08:59 02/04/18 07:38 81 MG Atorvastatin Calcium (Lipitor Tab) 20 mg HS PO 02/03/18 21:00 03/05/18 20:59 02/04/18 20:54 20 MG Citalopram Hydrobromide (celeXA TAB) 20 mg DAILY PO 02/04/18 09:00 03/06/18 08:59 02/04/18 07:38 20 MG Fish Oil ([place]-3 (Purified Fish Oil) Cap) 1 gm DAILY PO 02/04/18 09:00 03/06/18 08:59 02/04/18 07:39 1 GM Gabapentin (Neurontin Cap) 400 mg [id number] PO 02/04/18 07:00 03/06/18 06:59 02/04/18 20:54 400 MG Gabapentin (Neurontin Tab) 600 mg HS PO 02/03/18 21:00 03/05/18 20:59 02/04/18 20:56 600 MG Gemfibrozil (Lopid Tab) 600 mg BID PO 02/03/18 21:00 03/05/18 20:59 02/04/18 20:54 600 MG Metoprolol Tartrate (Lopressor Tab) 12.5 mg BID PO 02/03/18 21:00 03/05/18 20:59 02/04/18 20:54 12.5 MG Multivitamins (Multivitamin Tab) 1 tab DAILY PO 02/04/18 09:00 03/06/18 08:59 02/04/18 07:38 1 TAB Rivaroxaban (Xarelto Tab) 20 mg DAILY PO 02/04/18 09:00 03/06/18 08:59 02/04/18 07:38 20 MG Tamsulosin HCl (Flomax Cap) 0.4 mg DAILY PO 02/04/18 09:00 03/06/18 08:59 02/04/18 07:38 0.4 MG Promethazine HCl 12.5 mg/Sodium Chloride 50.5 ml @ 204 mls/hr Q6H PRN IV 02/03/18 20:15 03/05/18 20:14 Miscellaneous Information (Consult) 1 ea UD PRN N/A 02/04/18 15:30 03/06/18 15:29 Al Hydrox/Mg Hydrox/Simethicone (Maalox Max Susp) 15 ml Q6H PRN PO 02/04/18 15:30 03/06/18 15:29 Vancomycin HCl 1750 mg/Sodium Chloride 535 ml @ 200 mls/hr Q10H IV 02/05/18 02:00 02/19/18 01:59 02/05/18 02:27 200 MLS/HR Objective Vital Signs Date Time Temp Pulse Resp B/P (MAP) Pulse Ox O2 Delivery O2 Flow Rate FiO2 02/05/18 07:54 35.7 70 19 129/83 (98) 93 BiPAP 02/05/18 05:56 68 97 30 02/05/18 04:35 36.6 65 18 124/83 (97) 93 BiPAP 02/05/18 04:00 BiPAP 02/05/18 02:22 70 95 30 02/05/18 00:01 Nasal Cannula 2.0 02/04/18 23:47 36.4 74 18 116/65 (82) 94 BiPAP 02/04/18 22:16 77 96 30 02/04/18 20:00 Nasal Cannula 3.0 02/04/18 19:46 36.7 84 20 137/74 (95) 94 Nasal Cannula 3.0 02/04/18 16:00 Nasal Cannula 3.0 02/04/18 15:26 36.6 78 20 115/65 (82) 93 Nasal Cannula 3.0 02/04/18 12:00 Nasal Cannula 2.0 02/04/18 11:47 36.5 83 20 158/81 (106) 93 Physical Exam General Appearance: no apparent distress, + obese Respiratory/Chest: chest non-tender, lungs clear, normal breath sounds, no respiratory distress, no accessory muscle use Cardiovascular: regular rate, rhythm, no edema, no murmur Abdomen: + pertinent finding (Foster catheter in place; draining dark red urine) Extremities: normal inspection, no pedal edema Neurologic/Psychiatric: no motor/sensory deficits, alert, normal mood/affect Laboratory Results Last 24 Hours Test 02/04/18 09:15 02/05/18 06:31 Vitamin B12 Level 1361 pg/mL Folate 15.54 ng/mL White Blood Count 5.68 K/uL Red Blood Count 3.93 M/uL Hemoglobin 12.7 g/dL Hematocrit 40.5 % Mean Corpuscular Volume 103.1 fL Mean Corpuscular Hemoglobin 32.3 pg Mean Corpuscular Hemoglobin Concent 31.4 g/dl RDW Standard Deviation 51.5 fL RDW Coefficient of Variation 13.6 % Platelet Count 118 K/uL Mean Platelet Volume 11.4 fL Arterial Blood pH 7.45 Arterial Blood Partial Pressure CO2 53 mmHg Arterial Blood Partial Pressure O2 70 mm/Hg Arterial Blood HCO3 36 mmol/L Arterial Blood Oxygen Saturation 93.6 % Arterial Blood Base Excess 10.5 mEq/L Arterial Blood Gas Delivery 12/5 30% Darrell Test POS Sodium Level 140 mmol/L Potassium Level 4.2 mmol/L Chloride Level 103 mmol/L Carbon Dioxide Level 36 mmol/L Anion Gap 1.0 mmol/L Blood Urea Nitrogen 21 mg/dl Creatinine 0.61 mg/dl Est Creatinine Clear Calc Drug Dose 150.6 ml/min Estimated GFR () 110.9 Estimated GFR (Non- 95.7 BUN/Creatinine Ratio 34.2 Random Glucose 95 mg/dl Calcium Level 8.3 mg/dl Assessment and Plan This is a 77 year old male with a past medical history of morbid obesity, obesity hypoventilation syndrome, ABDULLAHI on 2-3L of O2 nocturnally, HTN, HLD, s/p fracture and repair of R hip in October 2017 with subsequent DVT now on long- term anticoagulation - presents with urinary retention issues and subsequently found to have significant hypercapnia. Acute on Chronic Hypercapnic Respiratory Failure in the setting of Obstructive Sleep Apnea Obesity-Hypoventilation Syndrome 02/05 - one set of blood cultures was positive for strep viridans, most likely a contaminant - was started on Vanco initially but we will stop this - ABGs improving, counseled on nocturnal Bipap use - plan for d/c today, SNF vs. home health 02/04 - patient with obesity hypoventilation syndrome, also has ABDULLAHI and should be using bipap nocturnally as recommended by pulmonology - chronic CO2 retention with baseline arterial CO2 around the 60s-70s - on admission, patient was hypoxic and ABG performed suggesting significant acidosis and pCO2 around 85 - was placed on bipap and repeat ABGs suggest improvement of CO2 - patient does not use Bipap at home and uses around 2L of O2 nocturnally instead - repeat ABG on 02/05, if closer to baseline, can likely d/c home - speech therapy pending - d/c'd all antibiotics as this does not appear to be infectious in nature Hx. of R LE DVT - currently on Xarelto - provoked DVT; with hx. of R hip repair in October 2017 - will likely need 6 months of tx. Hx. of R Hip Fracture/Repair - patient is now WBAT on that R LE - receives PT/OT at home - will consult PT/OT while inpatient to determine ambulatory status - uses walker for support after surgery; prior to that, was not using assistive devices - lives alone at home; has son for support, who provides him meals Urinary Retention 02/05 - hematuria noted, likely traumatic insertion of Foster - can likely d/c home with outpatient urology follow-up 02/04 - likely secondary to BPH - currently on Flomax, started on Finasteride - catheter to remain in place until outpatient urology appointment and cystoscopy HTN - blood pressure is stable - continue Lopressor DVT ppx - Xarelto DNR/DNI
[2018-02-05] MEDS ORDERED: PRS5 PO (10:12)
--- NOTE | 2018-02-05 10:20 | Discharge Instructions ---
Discharge Instructions Date of Service Feb 05, 2018. Admission Reason for Admission: Hypercapnia Discharge Discharge Diagnosis / Problem: Urinary Retention; Elevated CO2 Discharge Goals Goal(s): Decrease discomfort, Improve function, Diagnostic testing, Therapeutic intervention Activity Recommendations Activity Limitations: resume your previous activity . Instructions / Follow-Up Instructions / Follow-Up Please follow-up with Dr Perez on January 10 at 2:25PM Please follow-up with Dr. Norman, urology, in one week * Please use bipap every night * You will be discharged with a Foster catheter - if the bleeding in the catheter does not stop, please call urology for more information * Use a walker at all times to ambulate - you will receive physical and occupational therapy at home Current Hospital Diet Patient's current hospital diet: AHA Diet (Heart Healthy) Discharge Diet Recommended Diet: AHA Diet (Heart Healthy) Pending Studies Studies pending at discharge: no Laboratory Results Hemoglobin A1c Test 11/15/17 06:20 Range/Units Estimated Average Glucose 143 mg/dl Hemoglobin A1c 6.6 H 4.5-5.6 % Lipid Panel Test 12/21/17 02:05 Range/Units Triglycerides Level 56 0-150 mg/dl Cholesterol Level 83 0-200 mg/dl HDL Cholesterol 39 mg/dl Cholesterol/HDL Ratio 2.1 LDL Cholesterol, Calculated 33 mg/dl Medical Emergencies . Who to Call and When: Medical Emergencies: If at any time you feel your situation is an emergency, please call 911 immediately. . Non-Emergent Contact Non-Emergency issues call your: Primary Care Provider . . "Provider Documentation" section prepared by Eulogio Frances. .
--- NOTE | 2018-02-05 10:23 | Discharge Summary ---
Discharge Summary Date of Service Feb 05, 2018. Discharge Summary Admission Date: Feb 03, 2018 at 20:21 Discharge Date: Feb 05, 2018 Discharge Disposition: Home with services Principal Diagnosis: Urinary Retention BPH Acute on Chronic Hypercapnic Respiratory Failure Obstructive Sleep Apnea Obesity Hypoventilation Syndrome R LE DVT - on long-term anticoagulation Medication Reconciliation New Medications: Finasteride (Finasteride) 5 Mg Tab 5 MG PO QAM for 30 Days, #30 TAB Continued Medications: Aspirin (Aspirin Ec) 81 Mg Tab 81 MG PO DAILY Atorvastatin (Lipitor) 40 Mg Tab 20 MG PO HS, TAB Calcium Ascorbate (Vitamin C) 500 Mg Tab 1 TAB PO DAILY Citalopram (Citalopram Hydrobromide) 20 Mg Tab 20 MG PO DAILY Fish Oil (Painter-3) 1 Ea Cap 1 CAP PO DAILY, CAP Gabapentin (Neurontin) 400 Mg Cap 400 MG PO BID, CAP morning and afternoon Gabapentin (Neurontin) 600 Mg Tab 1 TAB PO HS for 30 Days, TAB 3 Refills Gemfibrozil (Gemfibrozil) 600 Mg Tab 600 MG PO BID Home O2 Therapy (Oxygen) Gas 2 LITERS NA, % Melatonin (Melatonin) 5 Mg Tab 5 MG PO HS PRN for Sleep Metoprolol Tartrate (Lopressor) (Lopressor) 25 Mg Tab 12.5 MG PO BID, TAB Multivitamin (Multivitamin) Tab 1 TAB PO DAILY, TAB Rivaroxaban (Xarelto) 10 Mg Tab 20 MG PO DAILY, TAB Tamsulosin Hcl (Flomax) 0.4 Mg Cap 0.4 MG PO DAILY, CAP Discontinued Medications: Ciprofloxacin Hcl (Cipro) 500 Mg Tab 500 MG PO BID, TAB BEGIN 01/30/18 X 7 DAYS Admission Information HPI (per Admitting provider): 77-year-old male who presents to the ER with inability to urinate. Patient was recently discharged from [facility] after receiving therapy after having hip and wrist fractures. Patient was seen in the ER last week for urinary retention. Catheter was unable to be placed however patient was able to urinate on his own before leaving the ED. Patient has had persistent difficulty urinating. He therefore presented back to the ED today. Patient denies any other associated symptoms. He denies chest pain and shortness of breath. He reports an occasional cough productive for clear sputum which is chronic. He has chronic lower extremity edema which is unchanged from baseline. No lightheadedness, dizziness, diaphoresis, or syncopal events. No fevers or chills. No abdominal pain, nausea, vomiting, or diarrhea. Son is the bedside he reports some mild intermittent confusion. He also has not been getting around as easily as he was at rehab. In the ED, Dr. Norman evaluated the patient at the bedside and was able to place a Foster catheter. Labs are showing CO2 retention. Chest x-ray shows a possible pneumonia. Patient saturating well on his chronic 2 L of oxygen. He was given IV Solu-Medrol, DuoNeb, IV vancomycin, IV cefepime, and IV azithromycin. Physical Exam (per Admitting): General Appearance: WD/WN, no apparent distress, + obese Head: normocephalic, atraumatic Eyes: normal inspection, EOMI, sclerae normal ENT: hearing grossly normal, + pertinent finding (Mucous membranes moist) Neck: supple, no JVD, trachea midline Respiratory/Chest: no respiratory distress, + decreased breath sounds Cardiovascular: regular rate, rhythm, normal peripheral pulses, + pertinent finding (+2 edema BLE) Abdomen/GI: normal bowel sounds, non tender, soft, no organomegaly Extremities/Musculoskelatal: normal inspection, no calf tenderness, normal capillary refill Neurologic/Psych: no motor/sensory deficits, alert, normal mood/affect, oriented x 3 Skin: normal color, warm/dry Hospital Course This is a 77 year old male with a past medical history of morbid obesity, obesity hypoventilation syndrome, ABDULLAHI on 2-3L of O2 nocturnally, HTN, HLD, s/p fracture and repair of R hip in October 2017 with subsequent DVT now on long- term anticoagulation - presents with urinary retention issues and subsequently found to have significant hypercapnia. Acute on Chronic Hypercapnic Respiratory Failure in the setting of Obstructive Sleep Apnea Obesity-Hypoventilation Syndrome 02/05 - one set of blood cultures was positive for strep viridans, most likely a contaminant - was started on Vanco initially but we will stop this - ABGs improving, counseled on nocturnal Bipap use - plan for d/c today, SNF vs. home health 02/04 - patient with obesity hypoventilation syndrome, also has ABDULLAHI and should be using bipap nocturnally as recommended by pulmonology - chronic CO2 retention with baseline arterial CO2 around the 60s-70s - on admission, patient was hypoxic and ABG performed suggesting significant acidosis and pCO2 around 85 - was placed on bipap and repeat ABGs suggest improvement of CO2 - patient does not use Bipap at home and uses around 2L of O2 nocturnally instead - repeat ABG on 02/05, if closer to baseline, can likely d/c home - speech therapy pending - d/c'd all antibiotics as this does not appear to be infectious in nature Hx. of R LE DVT - currently on Xarelto - provoked DVT; with hx. of R hip repair in October 2017 - will likely need 6 months of tx. Hx. of R Hip Fracture/Repair - patient is now WBAT on that R LE - receives PT/OT at home - will consult PT/OT while inpatient to determine ambulatory status - uses walker for support after surgery; prior to that, was not using assistive devices - lives alone at home; has son for support, who provides him meals Urinary Retention 02/05 - hematuria noted, likely traumatic insertion of Foster - can likely d/c home with outpatient urology follow-up 02/04 - likely secondary to BPH - currently on Flomax, started on Finasteride - catheter to remain in place until outpatient urology appointment and cystoscopy HTN - blood pressure is stable - continue Lopressor DVT ppx - Xarelto DNR/DNI Total time spent on discharge = 50 minutes This includes examination of the patient, discharge planning, medication reconciliation, and communication with other providers. Discharge Instructions Please follow-up with Dr Perez on January 10 at 2:25PM Please follow-up with Dr. Norman, urology, in one week * Please use bipap every night * You will be discharged with a Foster catheter - if the bleeding in the catheter does not stop, please call urology for more information * Use a walker at all times to ambulate - you will receive physical and occupational therapy at home
[2018-02-05] MEDS ORDERED: VANCOMYCIN TROUGH ONE ×2 (11:30→21:30)
[2018-02-05] MEDS ORDERED: TAMS0.4C38 PO (12:04)
[2018-02-05 12:09] VITALS: BP 126/70; PULSE 77; TEMP 36.8; O2SAT 94
== END 2018-02-05 13:17 | disposition home health service (06) | DRG 695 ==
LOC: EDBD 16:17 → C.EDC 16:18 → ENRESERV 19:49 → CANRESERV 19:49 → C.2E 20:21 → CANBEDREQ 20:22 → ENRESERV 20:51
PROVIDERS: ADMIT Internal Medicine; ATTEND Family Medicine
DX: R33.9 Retention of urine, unspecified (principal); J96.22 Acute and chronic respiratory failure with hypercapnia; E66.2 Morbid (severe) obesity with alveolar hypoventilation; J96.21 Acute and chronic respiratory failure with hypoxia; N40.1 Benign prostatic hyperplasia with lower urinary tract symptoms; Z99.81 Dependence on supplemental oxygen; Z86.718 Personal history of other venous thrombosis and embolism; E78.4 Other hyperlipidemia; M10.9 Gout, unspecified; I10 Essential (primary) hypertension; J98.6 Disorders of diaphragm; Z79.01 Long term (current) use of anticoagulants; G47.33 Obstructive sleep apnea (adult) (pediatric); Z66 Do not resuscitate; R31.9 Hematuria, unspecified; Y84.6 Urinary catheterization as the cause of abnormal reaction of the patient, or of later complication, without mention of misadventure at the time of the procedure; Y92.239 Unspecified place in hospital as the place of occurrence of the external cause; S72.91XD Unspecified fracture of right femur, subsequent encounter for closed fracture with routine healing; Y92.009 Unspecified place in unspecified non-institutional (private) residence as the place of occurrence of the external cause; Z68.42 Body mass index [BMI] 45.0-49.9, adult

== ENCOUNTER 2023-03-26 03:12 | Inpatient (IN) ==
[2023-03-26] MEDS ORDERED: ONDANSETRON INJ 2 MG/ML 2 ML VIAL IV STA (03:58)
[2023-03-26] MEDS ORDERED: MoRPHine SULFATE 4 MG/ML 1 ML CARP\\VIAL IV STA (03:58)
--- NOTE | 2023-03-26 04:32 | Emergency Department Note ---
Impression & Plan Lumbar disc herniation with radiculopathy, Lumbago with sciatica, right side, Morbid obesity with BMI of 45.0-49.9, adult ED Provider Note CHIEF COMPLAINT: Low lumbar back pain, right leg pain HISTORY OF PRESENT ILLNESS: This 82-year-old male patient with past medical history of obesity, DVT, obstructive sleep apnea and osteoarthritis presents to the emergency department 1 day status post fall. The patient was evaluated in the emergency department yesterday after a fall. He states he sustained a right shoulder contusion and laceration to his head. He received janet in the laceration. Tonight the patient states the right leg became so painful he is not able to bear weight on it. This does seem to exacerbate the pain significantly. He called the ambulance for transportation to the hospital due to his level of pain. In the ambulance ride to the hospital, he states the pain resolved. Of note he did not receive any imaging other than an x-ray for the lumbar spine last evening. Patient is denying any bowel and bladder incontinence. REVIEW OF SYSTEMS: A review of systems was performed with positives and pertinent negatives listed in the history of present illness. 10 systems were reviewed and are otherwise negative. ALLERGIES: see below MEDICATIONS: see below PMH: see below SOCIAL HISTORY: see below DDx: Compression fracture, disc herniation, sciatica, stenosis, other PHYSICAL EXAM: Vital signs reviewed. General: Well-appearing 82-year-old male, in no significant distress. HEENT: No scleral icterus, PERRLA, neck supple. Atraumatic. Cardiovascular: Regular rate and rhythm, no extra sounds. Pulmonary: Increased work of breathing, clear breath sounds bilaterally resting comfortably on nasal cannula oxygen. Abdomen: Soft, nontender, nondistended, positive bowel sounds. Musculoskeletal: Atraumatic, no peripheral edema. Positive right lower extre mity straight leg raise, negative left lower extremity. No significant edema. Neurologic: Patient awake alert and oriented x 3, speech is clear Skin: Warm, dry, no rash EMERGENCY DEPARTMENT COURSE/MDM: This patient was evaluated and appeared to be in no significant distress. IV access was obtained and laboratory work was drawn. Patient had some discomfort with straight leg raise of the right lower extremity. He is morbidly obese and movement is limited at baseline however it seems his back pain has diminished his mobility. Patient states whenever he attempts to bear weight on the leg it is excruciating in the back. CT imaging of the lumbar spine was performed and reveals evidence of degenerative change, disc herniation at L3-L4 with neuroforaminal narrowing. Ambulatory trial was performed by nursing staff and unsuccessful. The patient is not able to ambulate. He lives at home with his disabled son who walks in with a cane as well. The patient require hospitalization for further management. Case was discussed with the hospitalist, patient and son expressed understanding and agree. MONITORING: An order for cardiac monitoring was placed and the patient is noted to be in a normal sinus rhythm at 96 per minute. 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 Subdural hematoma S/P fall 03/23/2023 CT Head with chronic hematoma vs hygroma Surgical History Fracture of right hip "S/P repair" H/O umbilical hernia repair Hx of cholecystectomy Hx of knee surgery 1989 Right wrist fracture "S/P repair" Family History Mother Lung cancer Lung disease Brother Lung cancer Lung disease Denies family history of Ovarian cancer Prostate cancer Myocardial infarction Breast cancer Colorectal cancer Social History Smoking Status: Never smoker Second Hand Exposure: No; Do You Dip or Chew Tobacco: No; Hx Alcohol Use: Yes Alcohol type: beer Alcohol Intake Frequency Comment: 3 drinks per week Hx Substance Use: No Preferred Language: Kazakh Communication Ability: Effective Visual Impairment: No Limitations Hearing Ability: Normal Non Licensed Operator Required: No Beliefs That Will Affect Care: None marital status: / Current Living Situation: Other Current Living Situation Comment: Live with son current occupational status: retired 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 How many Children do You have: 2 Other Information That Helps Us Care for You: No Feels Safe at Home: Yes Safety Concerns: Feels Safe At This Time Childhood Exposure to Second-Hand Smoke: No Diet: regular caffeine: Yes during the past year weight has: remained stable Dental Care, Regularly: No Physical Activity Frequency: Daily Seatbelt Use: always Sunscreen Use: No Assistive Devices: CPAP, Denture - Upper and Denture - Lower Allergies Allergies Allergy/AdvReac Type Severity Reaction Status Date / Time No Known Allergies Allergy Unverified 03/26/23 10:15 Home Meds Home Medications Medication Instructions Recorded Confirmed ibuprofen 200 mg tablet 200 mg PO QID PRN Pain 07/07/19 03/26/23 aspirin 81 mg tablet,delayed 81 mg PO DAILY 10/27/19 03/26/23 release atorvastatin 40 mg tablet 20 mg PO HS 10/27/19 03/26/23 multivitamin 1 tab PO DAILY 10/27/19 03/26/23 tamsulosin 0.4 mg capsule 0.4 mg PO DAILY 10/27/19 03/26/23 hydrochlorothiazide 25 mg tablet 25 mg PO DAILY 03/26/23 03/26/23 hydroxyzine HCl 10 mg tablet 10 mg PO QID PRN Anxiety 03/26/23 03/26/23 metformin 500 mg tablet 500 mg PO BID 03/26/23 03/26/23 omega 0-xre-aqe-fish oil 1,000 mg 1 cap PO DAILY 03/26/23 03/26/23 (120 mg-180 mg) capsule (Fish Oil) pregabalin 75 mg capsule 75 mg PO BID 03/26/23 03/26/23 venlafaxine 150 mg 150 mg PO DAILY 03/26/23 03/26/23 capsule,extended release 24 hr Previous Rx's Medication Instructions Recorded oxycodone 5 mg tablet 5 mg PO Q6H PRN pain #7 tabs 03/18/23 Results & Data (ED) Vital Signs Vital Signs - 24 hr 03/26/23 03:04 03/26/23 03:04 Temperature 36.9 C Temperature Source Oral Pulse Rate 96 H Respiratory Rate 21 Respiratory Effort / Characteristics Non-Labored Non-Labored Respiratory Depth Normal Normal Blood Pressure 145/115 H Blood Pressure Mean 125 Pulse Oximetry 90 Oxygen Delivery Method Room Air Room Air Sepsis Recent Fever Within 48 Hours No Sepsis New/Unexplained Change in Mental Status No Sepsis Action Taken by Nursing No Action Required Home Medications Current Medication List: was personally reviewed by me Laboratory Data Attestation: I reviewed the patient's lab results. 03/26/23 04:10 03/26/23 04:10 Lab Results 03/26/23 03/26/23 03/26/23 Range/Units 04:10 04:10 06:30 WBC 7.15 (4.8-10.8) K/ul RBC 4.46 L (4.70-6.10) M/uL Hgb 16.0 (14.0-18.0) g/dl Hct 45.9 (42.0-52.0) % MCV 102.9 H (80.0-100.0) fL MCH 35.9 H (25.0-34.0) pg MCHC 34.9 (32.0-36.0) g/dL RDW Std Deviation 48.9 H (36.4-46.3) fL RDW Coeff of Jessica 12.9 (11.5-14.5) % Plt Count 102 L (130-400) K/uL MPV 12.2 (9.4-12.4) fL Immature Gran % (Auto) 0.6 % Neut % (Auto) 87.0 % Lymph % (Auto) 7.4 % [place] % (Auto) 4.6 % Eos % (Auto) 0.0 % Baso % (Auto) 0.4 % Neut # (Auto) 6.22 (1.40-6.50) K/uL Lymph # (Auto) 0.53 L (1.2-3.4) K/uL [place] # (Auto) 0.33 (0.11-0.59) K/uL Eos # (Auto) 0.00 (0-0.50) K/uL Baso # (Auto) 0.03 (0-0.2) K/uL Immature Gran # (Auto) 0.04 (0.01-0.20) K/uL Sodium 137 (136-145) mmol/L Potassium 4.9 (3.5-5.1) mmol/L Chloride 101 (98-107) mmol/L Carbon Dioxide 30 (21-32) mmol/L Anion Gap 6 (3-11) BUN 27 H (6-23) mg/dl Creatinine 0.82 (0.6-1.4) mg/dl Est Cr Clr Drug Dosing 102.8 ml/min Est GFR ( Amer) 94.8 ml/min Est GFR (Non-Af Amer) 81.8 ml/min BUN/Creatinine Ratio 32.9 H (10-20) Glucose 228 H (70-99(Fasting)) mg/dl Calcium 8.9 (8.6-10.3) mg/dl Total Bilirubin 0.9 (0.2-1.0) mg/dl AST 41 H (13-39) U/L ALT 64 H (7-52) U/L Alkaline Phosphatase 82 (34-104) U/L Total Protein 6.3 (6.0-8.3) gm/dl Albumin 3.4 (3.4-5.0) gm/dl Globulin 2.9 (2.5-4.0) gm/dl Albumin/Globulin Ratio 1.2 (0.9-2) SARS-CoV-2, RNA, NAAT NEGATIVE (NEGATIVE) Administered Medications Aspirin (Aspirin 81 Mg Ectab) 81 mg PO DAILY ELIZABETH Stop: 04/25/23 10:50 Last Admin: 03/26/23 11:39 Dose: 81 mg Documented By: ASAD Atorvastatin Calcium (Atorvastatin 20 Mg Tab) 20 mg PO HS ELIZABETH Stop: 04/25/23 20:59 Last Admin: 03/26/23 20:13 Dose: 20 mg Documented By: NICKIE Finasteride (Finasteride 5 Mg Tab) 5 mg PO DAILY ELIZABETH Stop: 04/25/23 10:50 Last Admin: 03/26/23 11:39 Dose: 5 mg Documented By: ASAD Gemfibrozil (Gemfibrozil 600 Mg Tab) 600 mg PO BID ELIZABETH Stop: 04/25/23 10:50 Last Admin: 03/26/23 20:13 Dose: 600 mg Documented By: Admin: 03/26/23 11:39 Dose: 600 mg Documented By: ASAD Hydrochlorothiazide (Hydrochlorothiazide 25 Mg Tab) 25 mg PO DAILY ELIZABETH Stop: 04/25/23 12:29 Last Admin: 03/26/23 13:00 Dose: 25 mg Documented By: ASAD Dexamethasone 6 mg/ Syringe 1.5 mls @ 1 mls/min IV BID ELIZABETH Stop: 04/25/23 12:29 Last Admin: 03/26/23 20:16 Dose: 1 mls/min Documented By: Admin: 03/26/23 14:00 Dose: 1 mls/min Documented By: ASAD Insulin Aspart (Insulin Aspart Per Unit Charge) 0 units SC ACHS ELIZABETH Stop: 04/25/23 11:29 Last Admin: 03/26/23 21:15 Dose: 2 units Documented By: NICKIE Co-signed By: ERIKA Admin: 03/26/23 17:26 Dose: 6 units Documented By: ASAD Co-signed By: YAA Admin: 03/26/23 12:31 Dose: 3 units Documented By: ASAD Co-signed By: YAA Melatonin (Melatonin 3 Mg Tab) 9 mg PO HS ELIZABETH Stop: 04/25/23 20:59 Last Admin: 03/26/23 20:14 Dose: 9 mg Documented By: NICKIE Metoprolol Tartrate (Metoprolol Tartrate 25 Mg Tab) 12.5 mg PO BID ELIZABETH Stop: 04/25/23 10:50 Last Admin: 03/26/23 20:12 Dose: 12.5 mg Documented By: Admin: 03/26/23 11:39 Dose: 12.5 mg Documented By: ASAD Oxycodone HCl (Oxycodone Hcl Ir 5 Mg Tab (Immediate Release)) 5 mg PO Q6H PRN PRN Reason: pain Stop: 04/09/23 10:50 Last Admin: 03/26/23 12:32 Dose: 5 mg Documented By: AASD Pregabalin (Pregabalin 75 Mg Cap) 75 mg PO BID ELIZABETH Stop: 04/25/23 20:59 Last Admin: 03/26/23 20:13 Dose: 75 mg Documented By: NICKIE Tamsulosin HCl (Tamsulosin Hcl 0.4 Mg Cap) 0.4 mg PO DAILY ELIZABETH Stop: 04/25/23 10:50 Last Admin: 03/26/23 11:39 Dose: 0.4 mg Documented By: ASAD Venlafaxine HCl (Venlafaxine Hcl Xr 150 Mg Capxr) 150 mg PO DAILY ELIZABETH Stop: 04/25/23 12:29 Last Admin: 03/26/23 13:00 Dose: 150 mg Documented By: ASAD Discontinued Medications Baclofen (Baclofen 10 Mg Tab) 10 mg PO ONE ONE Stop: 03/26/23 08:32 Last Admin: 03/26/23 08:39 Dose: 10 mg Documented By: RAJIV Citalopram Hydrobromide (Citalopram 20 Mg Tab) 20 mg PO DAILY ELIZABETH Stop: 04/25/23 10:50 Last Admin: 03/26/23 11:39 Dose: 20 mg Documented By: ASAD Gabapentin (Gabapentin 100 Mg Cap) 100 mg PO ONE ONE Stop: 03/26/23 08:33 Last Admin: 03/26/23 09:24 Dose: 100 mg Documented By: RAJIV Lorazepam (Lorazepam 0.5 Mg Tab) 0.5 mg PO DAILY ELIZABETH Stop: 04/25/23 10:50 Last Admin: 03/26/23 11:39 Dose: 0.5 mg Documented By: ASAD Morphine Sulfate (Morphine Sulfate 4 Mg/Ml 1 Ml Carp\\Vial) 4 mg IV NOW STA Stop: 03/26/23 03:59 Last Admin: 03/26/23 04:29 Dose: 4 mg Documented By: GLORIA Ondansetron HCl (Ondansetron Inj 2 Mg/Ml 2 Ml Vial) 4 mg IV NOW STA Stop: 03/26/23 03:59 Last Admin: 03/26/23 04:29 Dose: 4 mg Documented By: GLORIA Pregabalin (Pregabalin 50 Mg Cap) 50 mg PO BID ELIZABETH Stop: 04/25/23 10:50 Last Admin: 03/26/23 11:41 Dose: 50 mg Documented By: ASAD Imaging Data Radiologist's Impression: Lumbar Spine CT 03/26/23 03:54 Exam(s): CT L SPINE EXAM: CT Lumbar Spine Without Intravenous Contrast CLINICAL HISTORY: Reason for exam: lumbar pain with radiculopathy. TECHNIQUE: Axial computed tomography images of the lumbar spine without intravenous contrast. CTDI is 51.73 mGy and DLP is 1540.69 mGy-cm. Automated exposure control was utilized for the study. A dose lowering technique was utilized adhering to the principles of ALARA. COMPARISON: No relevant prior studies available. FINDINGS: Vertebrae: Mild to moderate multilevel degenerative disc disease and facet arthrosis throughout the lumbar spine. No acute fracture or traumatic subluxation is seen. The lumbar spine vertebral body heights are within normal limits. No compression fracture or burst fracture is seen. Discs/spinal canal/neural foramina: L3-4 there is disc dehydration as well as posterior disc herniation measuring 5 mm narrowing the thecal sac to 7 mm. There is mild bilateral neural foraminal narrowing. L4-5 there is 4 mm posterior disc bulge narrowing the thecal sac to 8-9 mm. L5-S1 there is a 3 mm posterior disc bulge without spinal stenosis. There is moderate bilateral neural foraminal narrowing. Soft tissues: Unremarkable. IMPRESSION: 1. Mild to moderate multilevel degenerative disc disease and facet arthrosis throughout the lumbar spine. No acute fracture or traumatic subluxation is seen. 2. The lumbar spine vertebral body heights are within normal limits. No compression fracture or burst fracture is seen. 3. At L3-4 there is disc dehydration as well as posterior disc herniation measuring 5 mm narrowing the thecal sac to 7 mm. There is mild bilateral neural foraminal narrowing. Electronically signed by: Villa Blanca MD 03/26/23 05:[address] 03/26/23 07:45 CT SCAN OF THE BRAIN WITHOUT IV CONTRAST CLINICAL HISTORY: Head injury. COMPARISON STUDY: CT of the brain dated 03/23/2023. TECHNIQUE: Unenhanced axial CT scan of the brain is performed from the vertex to the skull base. A dose lowering technique was utilized adhering to the principles of ALARA. CT DOSE: 703.85 mGy.cm FINDINGS: Brain parenchyma: CSF attenuation extra-axial fluid along the right convexity is unchanged from previous. This measures up to 12 mm in thickness and minimally effaces the subjacent cortical sulci. There is age-related involutional change noting mild subcortical and periventricular microangiopathic disease. There is no acute hemorrhage or evidence of acute territorial ischemia by CT criteria. No significant midline shift is seen. Mccoy-white matter differentiation is preserved. Ventricles, sulci, cisterns: Prominent secondary to involutional change. Intracranial vasculature: There is atherosclerotic calcification of the cav ernous carotid and vertebral arteries. Calvarium: The skeletal structures are osteopenic. No depressed calvarial fractures seen. Soft tissues: There is a high right posterior scalp contusion with skin clips in place. Sinuses and mastoids: The visualized paranasal sinuses are clear. The mastoid air cells are well pneumatized. Orbits: The bony orbits are grossly intact. IMPRESSION: 1. There is no acute hemorrhage or evidence of acute territorial ischemia by CT criteria. 2. A CSF attenuation extra-axial fluid collection along the right convexity is unchanged from previous. This causes mild mass effect, and likely represents a chronic subdural hematoma versus hygroma. No acute/hyperdense blood products are identified. ACT 112: Negative or not required by law. Electronically signed by: Eddie Crum M.D. 03/26/2023 9:04 AM Discharge Plan Visit Data Chief Complaint: Leg Injury/Pain Stated Complaint: right leg pain ED Provider: Vickie Lei Discharge Problem: Lumbar disc herniation with radiculopathy, Lumbago with sciatica, right side, Morbid obesity with BMI of 45.0-49.9, adult Patient Disposition: Admitted As Inpatient Discharge Instructions Interventions: ED Discharge Assessment Last Done: 03/26/23 09:30
[2023-03-26 04:43] LABS: Albumin Globulin Ratio 1.2 (0.9-2); Albumin Level 3.4 gm/dl (3.4-5.0); BUN Creatinine Ratio 32.9 (10-20); Bilirubin,Total 0.9 mg/dl (0.2-1.0); Calcium 8.9 mg/dl (8.6-10.3); Creatinine Clr Calc Pharmacy 102.8 ml/min; Est GFR (African American) 94.8 ml/min; Est GFR (Non-African American) 81.8 ml/min; Globulin 2.9 gm/dl (2.5-4.0); Potassium 4.9 mmol/L (3.5-5.1); Total Protein 6.3 gm/dl (6.0-8.3)
[2023-03-26 05:02] LABS: Basophils # (auto) 0.03 K/uL (0-0.2); Basophils % (auto) 0.4 %; Hematocrit (blood only) 45.9 % (42.0-52.0); Immature Granulocytes # (auto) 0.04 K/uL (0.01-0.20); Immature Granulocytes % (auto) 0.6 %; Lymphocytes # (auto) 0.53 K/uL (1.2-3.4); Lymphocytes % (auto) 7.4 %; Mean Corpuscular Hemoglobin 35.9 pg (25.0-34.0); Mean Corpuscular Hgb Conc 34.9 g/dL (32.0-36.0); Mean Corpuscular Volume 102.9 fL (80.0-100.0); Mean Platelet Volume 12.2 fL (9.4-12.4); Monocytes # (auto) 0.33 K/uL (0.11-0.59); Monocytes % (auto) 4.6 %; Neutrophils # (auto) 6.22 K/uL (1.40-6.50); Platelet Count 102 K/uL (130-400); RDW Coefficient of Variation 12.9 % (11.5-14.5); RDW Standard Deviation 48.9 fL (36.4-46.3); Red Blood Count 4.46 M/uL (4.70-6.10); White Blood Count 7.15 K/ul (4.8-10.8)
--- NOTE | 2023-03-26 05:52 | CT Scan Report ---
Exam(s): CT L SPINE EXAM: CT Lumbar Spine Without Intravenous Contrast CLINICAL HISTORY: Reason for exam: lumbar pain with radiculopathy. TECHNIQUE: Axial computed tomography images of the lumbar spine without intravenous contrast. CTDI is 51.73 mGy and DLP is 1540.69 mGy-cm. Automated exposure control was utilized for the study. A dose lowering technique was utilized adhering to the principles of ALARA. COMPARISON: No relevant prior studies available. FINDINGS: Vertebrae: Mild to moderate multilevel degenerative disc disease and facet arthrosis throughout the lumbar spine. No acute fracture or traumatic subluxation is seen. The lumbar spine vertebral body heights are within normal limits. No compression fracture or burst fracture is seen. Discs/spinal canal/neural foramina: L3-4 there is disc dehydration as well as posterior disc herniation measuring 5 mm narrowing the thecal sac to 7 mm. There is mild bilateral neural foraminal narrowing. L4-5 there is 4 mm posterior disc bulge narrowing the thecal sac to 8-9 mm. L5-S1 there is a 3 mm posterior disc bulge without spinal stenosis. There is moderate bilateral neural foraminal narrowing. Soft tissues: Unremarkable. IMPRESSION: 1. Mild to moderate multilevel degenerative disc disease and facet arthrosis throughout the lumbar spine. No acute fracture or traumatic subluxation is seen. 2. The lumbar spine vertebral body heights are within normal limits. No compression fracture or burst fracture is seen. 3. At L3-4 there is disc dehydration as well as posterior disc herniation measuring 5 mm narrowing the thecal sac to 7 mm. There is mild bilateral neural foraminal narrowing. Electronically signed by: Villa Blanca MD 03/26/23 05:51 AM
[2023-03-26] MEDS ORDERED: BACLOFEN 10 MG TAB PO ONE (08:31)
[2023-03-26] MEDS ORDERED: GABAPENTIN 100 MG CAP PO ONE (08:32)
--- NOTE | 2023-03-26 09:06 | CT Scan Report ---
CT SCAN OF THE BRAIN WITHOUT IV CONTRAST CLINICAL HISTORY: Head injury. COMPARISON STUDY: CT of the brain dated 03/23/2023. TECHNIQUE: Unenhanced axial CT scan of the brain is performed from the vertex to the skull base. A do se lowering technique was utilized adhering to the principles of ALARA. CT DOSE: 703.85 mGy.cm FINDINGS: Brain parenchyma: CSF attenuation extra-axial fluid along the right convexity is unchanged from previ ous. This measures up to 12 mm in thickness and minimally effaces the subjacent cortical sulci. There is age-related involutional change noting mild subcortical and periventricular microangiopathic dise ase. There is no acute hemorrhage or evidence of acute territorial ischemia by CT criteria. No signif icant midline shift is seen. Mccoy-white matter differentiation is preserved. Ventricles, sulci, cisterns: Prominent secondary to involutional change. Intracranial vasculature: There is atherosclerotic calcification of the cavernous carotid and vertebr al arteries. Calvarium: The skeletal structures are osteopenic. No depressed calvarial fractures seen. Soft tissues: There is a high right posterior scalp contusion with skin clips in place. Sinuses and mastoids: The visualized paranasal sinuses are clear. The mastoid air cells are well pneu matized. Orbits: The bony orbits are grossly intact. IMPRESSION: 1. There is no acute hemorrhage or evidence of acute territorial ischemia by CT criteria. 2. A CSF attenuation extra-axial fluid collection along the right convexity is unchanged from previou s. This causes mild mass effect, and likely represents a chronic subdural hematoma versus hygroma. No acute/hyperdense blood products are identified. ACT 112: Negative or not required by law. Electronically signed by: Eddie Crum M.D. 03/26/2023 9:04 AM
--- NOTE | 2023-03-26 09:14 | History & Physical Report ---
Date of Service March 26, 2023 Assessment & Plan (1) Lumbago with sciatica, right side: Plan: Attending: Dr. 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 Patient presents with lumbar ago with radiculopathy along the L4 dermatome headed down into the right lower extremity. Patient also with chronic neuropathy on Lyrica 75 mg twice daily as an outpatient. Patient reports chronic back pain but no previous intervention or specific treatment. CT scan of the lumbar spine today reveals mild to moderate multilevel degenerative disc disease and facet arthrosis throughout the lumbar spine. There is also evidence of L3-4 disc dehydration as well as posterior disc herniation measuring 5 mm narrowing the thecal sac to 7 mm. There is mild bilateral neural foraminal narrowing. There is no evidence of compression fractures or burst fractures. We will continue the patient on Lyrica 75 mg p.o. twice daily. We will ask pain management to get involved to help manage chronic as well as acute pain issues. Patient may benefit from facet or foraminal injection We will also ask spine Ortho to review CT scan and offer recommendations regarding surgical options or other conservative management options Inasmuch as patient most likely is not a candidate for surgical intervention at this time as conservative measures have not yet been tried for effect, we will start the patient on Decadron IV while inpatient to see if that provides some level of relief PT/OT evaluation and treatment consults have been placed. Patient does live alone with his son at home. He does report ambulatory dysfunction in the past requiring a cane. (2) Fall: Plan: Status post fall yesterday with head laceration, shoulder contusion, and now back pain PT/OT evaluations Fall precautions while in the hospital Await PT/OT recommendations (3) Laceration of scalp: Plan: Gerry placed at previous ER visit. Scheduled removal in 10 days No pain or tenderness or erythema around the area of the laceration (4) Neuropathy: Plan: Patient is prediabetic We will start the patient on NovoLog sliding scale and check hemoglobin A1c with a.m. labs Continue Lyrica (pregabalin) 75 mg p.o. twice daily We will ask pain management to offer comment on ongoing treatment (5) BPH (benign prostatic hyperplasia): Plan: Patient denies any difficulty with urinary lu. Continue tamsulosin (6) Hemochromatosis: Plan: Labs appear to be appropriate at this time Continue outpatient management (7) Depression with anxiety: Plan: Continue venlafaxine (8) DVT (deep venous thrombosis): Plan: Status post hip surgery in the past Patient is reportedly on aspirin 81 mg p.o. daily for further prophylaxis SCDs and DELANEY hose while inpatient (9) Chronic respiratory failure with hypoxia, on home oxygen therapy: Plan: Patient reports that he uses BiPAP as he feels as needed. 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 twice daily (13) Dyslipidemia: Plan: Continue atorvastatin Outpatient management (14) Gout: Plan: Patient has no complaints right now of any joint pain. Does not appear to be on any prophylactic medications Continue to monitor (15) Hypercapnia: Plan: Continue BiPAP No ovation of serum carbon dioxide (16) Morbid obesity with BMI of 45.0-49.9, adult: Plan: Patient with BMI of 46.7 kg/m. Current weight is 156.1 kg We will order nutritional consult for evaluation and patient education This is most likely contributing to patient's chronic musculoskeletal pain and possibly to recent fall Encouraged reduction in calories and focused weight loss under supervision We will defer back to outpatient management for ongoing care plan (17) Subdural hematoma: Plan: CT head 03/23/2023 status post fall revealed a small chronic right subdural hematoma versus hygroma Repeat CT scan today on admission shows stable findings with no changes Patient denies any headache or neurological change. No tenderness around the site of the subdural hematoma Plan Please refer to Dr. Dobson's addendum for further recommendations and corrections History of Present Illness Chief Complaint: Back pain with right lower extremity radiculopathy Primary Care Provider: HERBERTH Cowart Attending: Dr. Dobson This is an 82-year-old male that presents for severe back pain with radiculopathy down the right lower extremity. Patient has a past medical history including neuropathy, BPH, hemochromatosis, depression with anxiety, history of DVT following hip fracture, chronic respiratory failure with hypoxia, obesity hypoventilation syndrome on BiPAP, paralysis of the right hemidiaphragm, osteoarthritis, hypertension, dyslipidemia, gout, hypercapnia, morbid obesity with a BMI of 45 kg/m. Patient presented to the hospital yesterday for a fall. He was found to have a significant laceration of the scalp. He received gerry for closure. Patient also had a right shoulder contusion. He denies any pain in his lower extremities at that time. Overnight, the patient started to develop low back pain and severe pain along the L4 dermatome extending across his lateral thigh crossing over the quadriceps and down into the medial quadricep region. Patient reports that he had difficulty standing or walking last evening secondary to the pain. Patient has no evidence of hip fracture. He has no hematoma or contusion along the right hip. Patient does report a long history of back problems and back pain. Laboratory evaluation does not indicate any significant reason for weakness. Neurological examination shows no pain with straight leg raise. Strength is fairly appropriately with both lower extremities but patient does experience significant pain to that area of the thigh with active range of motion. Patient denies any fever, chills, sweats, rigors. No recent infection. No difficulty with urination. No hematuria. No cough or significant sputum production. No indication of acute illness to explain weakness. Patient lives with his son. Allergies Allergy/AdvReac Type Severity Reaction Status Date / Time No Known Allergies Allergy Unverified 03/26/23 10:15 Home Medications Medication Instructions Recorded Confirmed Type ibuprofen 200 mg tablet 200 mg PO QID PRN Pain 07/07/19 03/26/23 History aspirin 81 mg tablet,delayed 81 mg PO DAILY 10/27/19 03/26/23 History release atorvastatin 40 mg tablet 20 mg PO HS 10/27/19 03/26/23 History multivitamin 1 tab PO DAILY 10/27/19 03/26/23 History tamsulosin 0.4 mg capsule 0.4 mg PO DAILY 10/27/19 03/26/23 History oxycodone 5 mg tablet 5 mg PO Q6H PRN pain #7 tabs 03/18/23 03/26/23 Rx hydrochlorothiazide 25 mg tablet 25 mg PO DAILY 03/26/23 03/26/23 History hydroxyzine HCl 10 mg tablet 10 mg PO QID PRN Anxiety 03/26/23 03/26/23 History metformin 500 mg tablet 500 mg PO BID 03/26/23 03/26/23 History omega 2-ugc-hob-fish oil 1,000 mg 1 cap PO DAILY 03/26/23 03/26/23 History (120 mg-180 mg) capsule (Fish Oil) pregabalin 75 mg capsule 75 mg PO BID 03/26/23 03/26/23 History venlafaxine 150 mg 150 mg PO DAILY 03/26/23 03/26/23 History capsule,extended release 24 hr Past Med/Surg History Medical History (Updated 03/27/23 @ 06:43 by Vickie Lei MD) Anxiety Arthritis BPH (benign prostatic hyperplasia) Chronic respiratory failure with hypoxia, on home oxygen therapy Depression with anxiety DVT (deep venous thrombosis) Provoked October 2017 Dyslipidemia Gout Hemochromatosis Hypertension Lumbago with sciatica, right side Morbid obesity with BMI of 45.0-49.9, adult Neuropathy Obesity hypoventilation syndrome Olecranon bursitis of left elbow Osteoarthritis 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 Subdural hematoma S/P fall 03/23/2023 CT Head with chronic hematoma vs hygroma Surgical History Fracture of right hip "S/P repair" H/O umbilical hernia repair Hx of cholecystectomy Hx of knee surgery 1989 Right wrist fracture "S/P repair" Family History Mother Lung cancer Lung disease Brother Lung cancer Lung disease Denies family history of Ovarian cancer Prostate cancer Myocardial infarction Breast cancer Colorectal cancer Social History Smoking Status: Never smoker Second Hand Exposure: No; Do You Dip or Chew Tobacco: No; Hx Alcohol Use: Yes Alcohol type: beer Alcohol Intake Frequency Comment: 3 drinks per week Hx Substance Use: No Preferred Language: Vietnamese Communication Ability: Effective Visual Impairment: No Limitations Hearing Ability: Normal Fitter Type Bar And Segment Required: No Beliefs That Will Affect Care: None marital status: / Current Living Situation: Other Current Living Situation Comment: Live with son current occupational status: retired 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 How many Children do You have: 2 Other Information That Helps Us Care for You: No Feels Safe at Home: Yes Safety Concerns: Feels Safe At This Time Childhood Exposure to Second-Hand Smoke: No Diet: regular caffeine: Yes during the past year weight has: remained stable Dental Care, Regularly: No Physical Activity Frequency: Daily Seatbelt Use: always Sunscreen Use: No Assistive Devices: CPAP, Denture - Upper and Denture - Lower Review of Systems Review of Systems: A total of 10 systems was reviewed and is negative other than as listed in the HPI Physical Exam Physical Exam: GENERAL : No acute distress EYES: No icterus, gaze conjugate NOSE: No evidence of epistaxis MOUTH: No lesions or candidiasis NECK: Supple MUSCULOSKELETAL: Patient has contusion of right shoulder. No pain with palpation. No evidence of hematoma on palpation. Patient has full range of motion with the right arm. LUNGS: CTA B/L, no wheezes, rales or rhonchi HEART: Regular, rate controlled ABDOMEN: Soft, NT, ND, BS Present EXTREMITIES: No LE edema, pedal pulses intact NEURO: A&OX3. Strength equal and appropriate to all 4 extremities. Deep tendon reflexes brachial radialis, bicep, patellar all 2/4. No pain with straight leg raise. Patient is able to bend the legs at the knees bilaterally. Reports some pain with right knee which patient states is chronic. Pupils equal round and reactive to light. Tongue is midline. No pronator drift. No apprec iation of any focal deficits. Results & Data Results & Data Vital Signs (Past 12 Hours) Vital Signs Temp Pulse Resp BP Pulse Ox O2 Del Method O2 Flow Rate 03/26/23 06:30 81 23 97 03/26/23 06:20 82 27 H 95 03/26/23 06:10 84 23 97 03/26/23 06:00 75 18 94 03/26/23 05:50 82 22 95 03/26/23 05:40 79 14 94 03/26/23 05:30 82 18 94 03/26/23 05:20 86 16 95 03/26/23 05:10 81 15 95 03/26/23 05:00 80 15 95 03/26/23 04:50 85 15 93 03/26/23 04:40 87 20 03/26/23 04:30 81 24 97 03/26/23 04:20 80 18 95 03/26/23 04:10 81 19 95 03/26/23 04:00 82 21 96 03/26/23 03:50 77 18 93 03/26/23 03:40 94 H 18 93 03/26/23 03:30 81 22 94 03/26/23 03:20 89 20 90 Nasal Cannula 2 03/26/23 03:04 Room Air 03/26/23 03:04 36.9 C 96 H 21 145/115 H 90 Room Air Critical Care Results & Data Vital Signs (Past 12 Hours) Vital Signs Temp Pulse Pulse Pulse Resp BP BP 03/26/23 10:52 36.4 C L 78 20 151/87 H 03/26/23 10:34 79 16 125/84 03/26/23 09:28 73 16 139/81 03/26/23 06:30 81 23 03/26/23 06:20 82 27 H 03/26/23 06:10 84 23 03/26/23 06:00 75 18 03/26/23 05:50 82 22 03/26/23 05:40 79 14 03/26/23 05:30 82 18 03/26/23 05:20 86 16 03/26/23 05:10 81 15 03/26/23 05:00 80 15 03/26/23 04:50 85 15 03/26/23 04:40 87 20 03/26/23 04:30 81 24 03/26/23 04:20 80 18 03/26/23 04:10 81 19 03/26/23 04:00 82 21 03/26/23 03:50 77 18 03/26/23 03:40 94 H 18 03/26/23 03:30 81 22 03/26/23 03:20 89 20 03/26/23 03:04 03/26/23 03:04 36.9 C 96 H 21 145/115 H Pulse Ox O2 Del Method O2 Flow Rate 03/26/23 10:52 97 Nasal Cannula 2 03/26/23 10:34 98 Room Air 03/26/23 09:28 98 Nasal Cannula 2 03/26/23 06:30 97 03/26/23 06:20 95 03/26/23 06:10 97 03/26/23 06:00 94 03/26/23 05:50 95 03/26/23 05:40 94 03/26/23 05:30 94 03/26/23 05:20 95 03/26/23 05:10 95 03/26/23 05:00 95 03/26/23 04:50 93 03/26/23 04:40 03/26/23 04:30 97 03/26/23 04:20 95 03/26/23 04:10 95 03/26/23 04:00 96 03/26/23 03:50 93 03/26/23 03:40 93 03/26/23 03:30 94 03/26/23 03:20 90 Nasal Cannula 2 03/26/23 03:04 Room Air 03/26/23 03:04 90 Room Air Lab & Micro Results (Past 24 Hours) No Data to Display Na 134 mmol/L (136-145) L 03/27/23 K 5.0 mmol/L (3.5-5.1) 03/27/23 Cl 95 mmol/L (98-107) L 03/27/23 CO2 36 mmol/L (21-32) H 03/27/23 Anion Gap 3 (3-11) 03/27/23 BUN 28 mg/dl (6-23) H 03/27/23 Creatinine 0.79 mg/dl (0.6-1.4) 03/27/23 Estimated GFR ( Amer) 96.2 ml/min 03/27/23 Estimated GFR (Non-Af Amer) 83.0 ml/min 03/27/23 BUN/Creatinine Ratio 35.4 (10-20) H 03/27/23 Glu 183 mg/dl (70-99(Fasting)) H 03/27/23 Ca 9.2 mg/dl (8.6-10.3) 03/27/23 Total Bilirubin 0.9 mg/dl (0.2-1.0) 03/27/23 AST 38 U/L (13-39) 03/27/23 ALT 58 U/L (7-52) H 03/27/23 Alkaline Phosphatase 88 U/L (34-104) 03/27/23 TP 6.6 gm/dl (6.0-8.3) 03/27/23 Albumin 3.5 gm/dl (3.4-5.0) 03/27/23 Globulin 3.1 gm/dl (2.5-4.0) 03/27/23 Albumin/Globulin Ratio 1.1 (0.9-2) 03/27/23 Calcium Level 9.2 mg/dl (8.6-10.3) 03/27/23 05:42 Diagnostic Findings (Past 24 Hours) Lumbar Spine CT 03/26/23 03:54 Exam(s): CT L SPINE EXAM: CT Lumbar Spine Without Intravenous Contrast CLINICAL HISTORY: Reason for exam: lumbar pain with radiculopathy. TECHNIQUE: Axial computed tomography images of the lumbar spine without intravenous contrast. CTDI is 51.73 mGy and DLP is 1540.69 mGy-cm. Automated exposure control was utilized for the study. A dose lowering technique was utilized adhering to the principles of ALARA. COMPARISON: No relevant prior studies available. FINDINGS: Vertebrae: Mild to moderate multilevel degenerative disc disease and facet arthrosis throughout the lumbar spine. No acute fracture or traumatic subluxation is seen. The lumbar spine vertebral body heights are within normal limits. No compression fracture or burst fracture is seen. Discs/spinal canal/neural foramina: L3-4 there is disc dehydration as well as posterior disc herniation measuring 5 mm narrowing the thecal sac to 7 mm. There is mild bilateral neural foraminal narrowing. L4-5 there is 4 mm posterior disc bulge narrowing the thecal sac to 8-9 mm. L5-S1 there is a 3 mm posterior disc bulge without spinal stenosis. There is moderate bilateral neural foraminal narrowing. Soft tissues: Unremarkable. IMPRESSION: 1. Mild to moderate multilevel degenerative disc disease and facet arthrosis throughout the lumbar spine. No acute fracture or traumatic subluxation is seen. 2. The lumbar spine vertebral body heights are within normal limits. No compression fracture or burst fracture is seen. 3. At L3-4 there is disc dehydration as well as posterior disc herniation measuring 5 mm narrowing the thecal sac to 7 mm. There is mild bilateral neural foraminal narrowing. Electronically signed by: Villa Blanca MD 03/26/23 05:[address] 03/26/23 07:45 CT SCAN OF THE BRAIN WITHOUT IV CONTRAST CLINICAL HISTORY: Head injury. COMPARISON STUDY: CT of the brain dated 03/23/2023. TECHNIQUE: Unenhanced axial CT scan of the brain is performed from the vertex to the skull base. A dose lowering technique was utilized adhering to the principles of ALARA. CT DOSE: 703.85 mGy.cm FINDINGS: Brain parenchyma: CSF attenuation extra-axial fluid along the right convexity is unchanged from previous. This measures up to 12 mm in thickness and minimally effaces the subjacent cortical sulci. There is age-related involutional change noting mild subcortical and periventricular microangiopathic disease. There is no acute hemorrhage or evidence of acute territorial ischemia by CT criteria. No significant midline shift is seen. Mccoy-white matter differentiation is preserved. Ventricles, sulci, cisterns: Prominent secondary to involutional change. Intracranial vasculature: There is atherosclerotic calcification of the cavernous carotid and vertebral arteries. Calvarium: The skeletal structures are osteopenic. No depressed calvarial fractures seen. Soft tissues: There is a high right posterior scalp contusion with skin clips in place. Sinuses and mastoids: The visualized paranasal sinuses are clear. The mastoid air cells are well pneumatized. Orbits: The bony orbits are grossly intact. IMPRESSION: 1. There is no acute hemorrhage or evidence of acute territorial ischemia by CT criteria. 2. A CSF attenuation extra-axial fluid collection along the right convexity is unchanged from previous. This causes mild mass effect, and likely represents a chronic subdural hematoma versus hygroma. No acute/hyperdense blood products are identified. ACT 112: Negative or not required by law. Electronically signed by: Eddie Crum M.D. 03/26/2023 9:04 AM RT Ventilator Mngmt (Last Documented) Ventilator Ordered Settings Respiratory Rate 20 03/26/23 10:52 Ventilator - PT Measurements Respiratory Rate 20 Code Status & VTE Plan VTE Prophylaxis Plan VTE Prophylaxis will be ordered: Yes Supervising Physician Co-Signing Physician Notes PA Supervision Note: I personally saw and examined the patient. I verified all caraballo points and agree with CAROL Grider with the following exceptions and/or additions: S-patient here with worsening right lumbar radiculopathy to the point where he is having great difficulty ambulating and had a fall with a head laceration with likely old subdural hematoma, right shoulder contusion. Continues to have chronic lower back pain but the pain down the right lower extremity to the ankle is new. Pain is mostly in the right anterior medial thigh. No fevers or chills, no other recent symptoms. History and ROS reviewed as above O- Vitals reviewed Gen: AAOx3, NAD HEENT: Anicteric sclerae, EOMI CV: RRR no mgr nl S1S2 Pulm: CTAB no wcr Abd: +BS soft NT ND no masses or hernias Ext: No edema, 2+ DP pulses Skin: No rashes, warm/dry Neuro: 4/5 strength throughout proximal right lower extremity but 5/5 strength distally, sensation intact to light touch throughout lower extremities, negative straight leg raise Labs and rads reviewed A/S-50-enef-old male here with right lumbar radiculopathy. No evidence of systemic infection. -He is to claustrophobic to undergo MRI -Consult orthopedic spine and pain management for further evaluation -Start IV Decadron, continue oxycodone as needed for more severe pain -Check Lyme titer PG Care Time/CCT Total # of Minutes Spent Total Time Spent with Patient: Total time spent is greater than 50% in coordination of care (as documented) at patient's floor/unit and/or counseling patient: Coding Level of Care Code 04505 INT INP/OBS CARE 375MIN Diagnoses Lumbago with sciatica, right side M54.41 Fall W19.XXXA Encounter type: initial encounter Laceration of scalp S01.01XA Encounter type: initial encounter Neuropathy G62.9 BPH (benign prostatic hyperplasia) N40.0 Hemochromatosis E83.119 Depression with anxiety F41.8 DVT (deep venous thrombosis) I82.409 Chronic respiratory failure with hypoxia, on home oxygen therapy J96.11; Z99.81 Obesity hypoventilation syndrome E66.2 Paralysis of diaphragm nerve G58.8 Hypertension I10 Dyslipidemia E78.5 Gout M10.9 Hypercapnia R06.89 Morbid obesity with BMI of 45.0-49.9, adult E66.01; Z68.42 Subdural hematoma S06.5XAA Time Spent (min) 60 (2) Fall Encounter type: initial encounter Qualified Code(s): W19.XXXA - Unspecified fall, initial encounter (3) Laceration of scalp Encounter type: initial encounter Qualified Code(s): S01.01XA - Laceration without foreign body of scalp, initial encounter
[2023-03-26] MEDS ORDERED: CARBOHYDRATES FOR HYPOGLYCEMIA PO PRN (10:51)
[2023-03-26] MEDS ORDERED: GLUCAGON FOR INJ 1 MG VIAL SQ PRN (10:51)
[2023-03-26] MEDS ORDERED: DEXTROSE 50% 50 ML SYRINGE IV PRN (10:51)
[2023-03-26] MEDS ORDERED: CITALOPRAM 20 MG TAB PO SCH (10:51)
[2023-03-26] MEDS ORDERED: PREGABALIN 50 MG CAP PO SCH (10:51)
[2023-03-26] MEDS ORDERED: LORazepam 0.5 MG TAB PO SCH (10:51)
[2023-03-26] MEDS ORDERED: GLUCOSE 10 TAB/TUBE PO PRN (10:51)
[2023-03-26] MEDS ORDERED: GLUCOSE 40% GEL 15 GM TUBE PO PRN (10:51)
[2023-03-26] MEDS: ASPIRIN 81 MG ECTAB PO SCH (11:39)
[2023-03-26] MEDS: TAMSULOSIN HCL 0.4 MG CAP PO SCH (11:39)
[2023-03-26] MEDS: METOPROLOL TARTRATE 25 MG TAB PO SCH ×2 (11:39→20:12)
[2023-03-26] MEDS: gemfibroziL 600 MG TAB PO SCH ×2 (11:39→20:13)
[2023-03-26] MEDS: FINASTERIDE 5 MG TAB PO SCH (11:39)
[2023-03-26] MEDS ORDERED: LORazepam 0.5 MG TAB PO PRN (12:24)
[2023-03-26] MEDS ORDERED: hydrOXYzine HCl 10 MG TAB PO PRN (12:25)
[2023-03-26] MEDS ORDERED: DEXAMETHASONE SOD INJ 4 MG/ML VIAL IV SCH (12:30)
[2023-03-26] MEDS: INSULIN ASPART PER UNIT CHARGE SC SCH ×3 (12:31→21:15)
[2023-03-26] MEDS: oxyCODONE HCL IR 5 MG TAB (IMMEDIATE RELEASE) PO PRN (12:32)
[2023-03-26] MEDS ORDERED: dexAMETHasone 4 MG TAB PO SCH (13:00)
[2023-03-26] MEDS: hydroCHLOROthiazide 25 MG TAB PO SCH (13:00)
[2023-03-26] MEDS: VENLAFAXINE HCL XR 150 MG CAPXR PO SCH (13:00)
[2023-03-26] MEDS: dexAMETHasone 6 MG in SYRINGE 0 ML IV SCH ×2 (14:00→20:16)
[2023-03-26] MEDS: ATORVASTATIN 20 MG TAB PO SCH (20:13)
[2023-03-26] MEDS: PREGABALIN 75 MG CAP PO SCH (20:13)
[2023-03-26] MEDS: MELATONIN 3 MG TAB PO SCH (20:14)
[2023-03-27 07:05] LABS: Albumin Globulin Ratio 1.1 (0.9-2); Albumin Level 3.5 gm/dl (3.4-5.0); BUN Creatinine Ratio 35.4 (10-20); Bilirubin,Total 0.9 mg/dl (0.2-1.0); Calcium 9.2 mg/dl (8.6-10.3); Creatinine Clr Calc Pharmacy 109.2 ml/min; Est GFR (African American) 96.2 ml/min; Globulin 3.1 gm/dl (2.5-4.0); Total Protein 6.6 gm/dl (6.0-8.3)
[2023-03-27 07:52] LABS: Estimated Average Glucose 143 mg/dl; Hemoglobin A1C 6.6 % (4.5-5.6)
[2023-03-27] MEDS: dexAMETHasone 6 MG in SYRINGE 0 ML IV SCH ×2 (08:26→20:56)
[2023-03-27] MEDS: gemfibroziL 600 MG TAB PO SCH ×2 (08:26→20:57)
[2023-03-27] MEDS: hydroCHLOROthiazide 25 MG TAB PO SCH (08:26)
[2023-03-27] MEDS: METOPROLOL TARTRATE 25 MG TAB PO SCH ×2 (08:27→20:58)
[2023-03-27] MEDS: CHOLECALCIFEROL 400 UNITS 10 MCG TAB PO SCH (08:27)
[2023-03-27] MEDS: VENLAFAXINE HCL XR 150 MG CAPXR PO SCH (08:27)
[2023-03-27] MEDS: TAMSULOSIN HCL 0.4 MG CAP PO SCH (08:28)
[2023-03-27] MEDS: MULTIVITAMIN TAB PO SCH (08:28)
[2023-03-27] MEDS: FINASTERIDE 5 MG TAB PO SCH (08:28)
[2023-03-27] MEDS: ASPIRIN 81 MG ECTAB PO SCH (08:28)
[2023-03-27] MEDS: INSULIN ASPART PER UNIT CHARGE SC SCH ×4 (08:37→21:02)
[2023-03-27] MEDS: PREGABALIN 75 MG CAP PO SCH ×2 (08:37→20:56)
[2023-03-27 10:12] LABS: Lyme Ab IgG w/WB Rflx Negative (Negative); Lyme Ab IgM w/WB Rflx Negative (Negative)
[2023-03-27] MEDS: oxyCODONE HCL IR 5 MG TAB (IMMEDIATE RELEASE) PO PRN ×2 (10:19→19:11)
--- NOTE | 2023-03-27 11:37 | Pain Management Consultation ---
Date of Consultation March 27, 2023 Assessment & Plan (1) Lumbar disc herniation with radiculopathy: Plan 1. Plan for an L5-S1 interlaminar epidural steroid injection on an outpatient basis. This will be scheduled for 04/02/[address] Bush. He will need to come into the office at 1400 for his initial intake with Erik Power PA-C. He will need to hold Ibuprofen, Aspirin, and Fish oil for 24 hours prior to the injection. 2. Continue IV Dexamethasone 3. Continue Oxycodone PRN pain 4. Continue Lyrica at 75mg twice daily for neuropathic pain. Hold on further increasing in concern of side effects or dizziness, swelling, unsteady gait. 5. Continue to work with physical therapy 6. Patient is understanding of the plan and will be seen in the office next week. He feels like he would be safe to be discharged home in a day or so and limit weight bearing activities at home until the procedure is performed. Please contact with any questions or concerns. History of Present Illness Reason for Consultation: lumbar radiculopathy Attending Physician: Dari Dobson MD History of Present Illness Mr. Medrano is an 82 year old male that has been experiencing pain in the low back radiating down the right posterior leg to the foot that has been ongoing for 2 weeks without any cause. He has been feeling an intermittent jolting in the right leg to the toes. He is unable to weight bear as it causes significant pain. Sitting and laying supine does provide complete pain relief. He does have a prior history of back issues which typically resolve with rest. Over the last 2 weeks he has been on a prednisone taper which was slightly efficacious towards diminishing his pain. He is chronically on Lyrica 50 mg twice daily for peripheral neuropathy. The Lyrica has been increased to 75 mg twice daily to possibly alleviate some of this pain he is experiencing from lumbar radiculopat hy. There is significant limitation to performing his daily activities due to the pain. Patient denies any back pain. He has been evaluated by Dr. Werner prior to my arrival and from what the patient for trace is physical therapy and conservative measures prior to resorting to possible surgery. Patient denies any bowel/bladder incontinence, saddle anesthesia, foot drop, leg weakness. He did have a fall a few days ago due to this significant right leg pain. Case discussed with Dr. Taylor Bush Allergies Allergy/AdvReac Type Severity Reaction Status Date / Time No Known Allergies Allergy Unverified 03/26/23 10:15 Home Medications Medication Instructions Recorded Confirmed Type ibuprofen 200 mg tablet 200 mg PO QID PRN Pain 07/07/19 03/26/23 History aspirin 81 mg tablet,delayed 81 mg PO DAILY 10/27/19 03/26/23 History release atorvastatin 40 mg tablet 20 mg PO HS 10/27/19 03/26/23 History multivitamin 1 tab PO DAILY 10/27/19 03/26/23 History tamsulosin 0.4 mg capsule 0.4 mg PO DAILY 10/27/19 03/26/23 History oxycodone 5 mg tablet 5 mg PO Q6H PRN pain #7 tabs 03/18/23 03/26/23 Rx hydrochlorothiazide 25 mg tablet 25 mg PO DAILY 03/26/23 03/26/23 History hydroxyzine HCl 10 mg tablet 10 mg PO QID PRN Anxiety 03/26/23 03/26/23 History metformin 500 mg tablet 500 mg PO BID 03/26/23 03/26/23 History omega 4-far-vlb-fish oil 1,000 mg 1 cap PO DAILY 03/26/23 03/26/23 History (120 mg-180 mg) capsule (Fish Oil) pregabalin 75 mg capsule 75 mg PO BID 03/26/23 03/26/23 History venlafaxine 150 mg 150 mg PO DAILY 03/26/23 03/26/23 History capsule,extended release 24 hr Patient History Medical History Anxiety Arthritis BPH (benign prostatic hyperplasia) Chronic respiratory failure with hypoxia, on home oxygen therapy Depression with anxiety DVT (deep venous thrombosis) Provoked October 2017 Dyslipidemia Gout Hemochromatosis Hypertension Lumbago with sciatica, right side Morbid obesity with BMI of 45.0-49.9, adult Neuropathy Obesity hypoventilation syndrome Olecranon bursitis of left elbow Osteoarthritis 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 Subdural hematoma S/P fall 03/23/2023 CT Head with chronic hematoma vs hygroma Surgical History Fracture of right hip "S/P repair" H/O umbilical hernia repair Hx of cholecystectomy Hx of knee surgery 1989 Right wrist fracture "S/P repair" Family History Mother Lung cancer Lung disease Brother Lung cancer Lung disease Denies family history of Ovarian cancer Prostate cancer Myocardial infarction Breast cancer Colorectal cancer Social History Smoking Status: Never smoker Second Hand Exposure: No; Do You Dip or Chew Tobacco: No; Hx Alcohol Use: Yes Alcohol type: beer Alcohol Intake Frequency Comment: 3 drinks per week Hx Substance Use: No Preferred Language: Occitan Communication Ability: Effective Visual Impairment: No Limitations Hearing Ability: Normal Mechanical Systems Engineer Required: No Beliefs That Will Affect Care: None marital status: / Current Living Situation: Other Current Living Situation Comment: Live with son current occupational status: retired 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 How many Children do You have: 2 Feels Safe at Home: Yes Childhood Exposure to Second-Hand Smoke: No Diet: regular caffeine: Yes during the past year weight has: remained stable Dental Care, Regularly: No Physical Activity Frequency: Daily Seatbelt Use: always Sunscreen Use: No Assistive Devices: Cane, CPAP and Walker Physical Exam Physical Exam: GENERAL: This is a pleasant morbidly obese 82 year old male that does not appear in any acute distress. HEAD/FACE: Normocephalic and atraumatic. EYES: No drainage or conjunctival injection. ENT: Nose without bleeding or discharge. Oral mucosa moist. NECK: Full ROM without apparent pain. No swelling or masses noted. RESPIRATORY: Patient with unlabored breathing. No signs of respiratory distress. CHEST/AXILLA: Chest movement symmetrical. No deformities noted. ABDOMEN/GI: No distension BACK: Moves without difficulty. No midline, facet joint, or SI joint tenderness. No paravertebral, quadratus lumborum, gluteal, piriformis muscle spasm or trigger points noted. SKIN: [place], warm and dry. No rash noted. MS/EXTREMITY: Full range of motion and strength of the right hip. 5/5 strength of the lower extremities. Negative straight leg raise. NEURO: Alert and appears oriented. Speech is fluent. Cranial Nerves are grossly intact. PSYCH: Alert, pleasant, affect is calm Results (Pain Clinic) Diagnostic Review CT Findings: Exam(s): CT L SPINE EXAM: CT Lumbar Spine Without Intravenous Contrast CLINICAL HISTORY: Reason for exam: lumbar pain with radiculopathy. TECHNIQUE: Axial computed tomography images of the lumbar spine without intravenous contrast. CTDI is 51.73 mGy and DLP is 1540.69 mGy-cm. Automated exposure control was utilized for the study. A dose lowering technique was utilized adhering to the principles of ALARA. COMPARISON: No relevant prior studies available. FINDINGS: Vertebrae: Mild to moderate multilevel degenerative disc disease and facet arthrosis throughout the lumbar spine. No acute fracture or traumatic subluxation is seen. The lumbar spine vertebral body heights are within normal limits. No compression fracture or burst fracture is seen. Discs/spinal canal/neural foramina: L3-4 there is disc dehydration as well as posterior disc herniation measuring 5 mm narrowing the thecal sac to 7 mm. There is mild bilateral neural foraminal narrowing. L4-5 there is 4 mm posterior disc bulge narrowing the thecal sac to 8-9 mm. L5-S1 there is a 3 mm posterior disc bulge without spinal stenosis. There is moderate bilateral neural foraminal narrowing. Soft tissues: Unremarkable. IMPRESSION: 1. Mild to moderate multilevel degenerative disc disease and facet arthrosis throughout the lumbar spine. No acute fracture or traumatic subluxation is seen. 2. The lumbar spine vertebral body heights are within normal limits. No compression fracture or burst fracture is seen. 3. At L3-4 there is disc dehydration as well as posterior disc herniation measuring 5 mm narrowing the thecal sac to 7 mm. There is mild bilateral neural foraminal narrowing. Electronically signed by: [place] MD 03/26/23 05:51 AM
--- NOTE | 2023-03-27 12:05 | Orthopedic Consultation ---
Date of Consultation March 27, 2023 Assessment & Plan (1) Lumbar disc herniation with radiculopathy: At this time would like to obtain an MRI lumbar spine for further anatomic detail. Make further recommendations upon review. History of Present Illness Reason for Consultation: Back and right leg pain Attending Physician: Dari Dobson MD History of Present Illness This a very pleasant 82-year-old male who presents with several days of worsening right leg pain. He describes pain in the buttock posterior thigh extending below the knee to the ankle. Markedly exacerbated with standing and walking. He is comfortable lying supine. Left lower extremity is asymptomatic. Denies any loss of bowel or bladder control. He denies any precipitating trauma fall or event. Allergies Allergy/AdvReac Type Severity Reaction Status Date / Time No Known Allergies Allergy Unverified 03/26/23 10:15 Home Medications Medication Instructions Recorded Confirmed Type ibuprofen 200 mg tablet 200 mg PO QID PRN Pain 07/07/19 03/26/23 History aspirin 81 mg tablet,delayed 81 mg PO DAILY 10/27/19 03/26/23 History release atorvastatin 40 mg tablet 20 mg PO HS 10/27/19 03/26/23 History multivitamin 1 tab PO DAILY 10/27/19 03/26/23 History tamsulosin 0.4 mg capsule 0.4 mg PO DAILY 10/27/19 03/26/23 History oxycodone 5 mg tablet 5 mg PO Q6H PRN pain #7 tabs 03/18/23 03/26/23 Rx hydrochlorothiazide 25 mg tablet 25 mg PO DAILY 03/26/23 03/26/23 History hydroxyzine HCl 10 mg tablet 10 mg PO QID PRN Anxiety 03/26/23 03/26/23 History metformin 500 mg tablet 500 mg PO BID 03/26/23 03/26/23 History omega 6-dre-epo-fish oil 1,000 mg 1 cap PO DAILY 03/26/23 03/26/23 History (120 mg-180 mg) capsule (Fish Oil) pregabalin 75 mg capsule 75 mg PO BID 03/26/23 03/26/23 History venlafaxine 150 mg 150 mg PO DAILY 03/26/23 03/26/23 History capsule,extended release 24 hr Patient History Medical History Anxiety Arthritis BPH (benign prostatic hyperplasia) Chronic respiratory failure with hypoxia, on home oxygen therapy Depression with anxiety DVT (deep venous thrombosis) Provoked October 2017 Dyslipidemia Gout Hemochromatosis Hypertension Lumbago with sciatica, right side Morbid obesity with BMI of 45.0-49.9, adult Neuropathy Obesity hypoventilation syndrome Olecranon bursitis of left elbow Osteoarthritis 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 Subdural hematoma S/P fall 03/23/2023 CT Head with chronic hematoma vs hygroma Surgical History Fracture of right hip "S/P repair" H/O umbilical hernia repair Hx of cholecystectomy Hx of knee surgery 1989 Right wrist fracture "S/P repair" Family History Mother Lung cancer Lung disease Brother Lung cancer Lung disease Denies family history of Ovarian cancer Prostate cancer Myocardial infarction Breast cancer Colorectal cancer Social History Smoking Status: Never smoker Second Hand Exposure: No; Do You Dip or Chew Tobacco: No; Hx Alcohol Use: Yes Alcohol type: beer Alcohol Intake Frequency Comment: 3 drinks per week Hx Substance Use: No Preferred Language: [place] Timorese Communication Ability: Effective Visual Impairment: No Limitations Hearing Ability: Normal Flatwork Finisher Required: No Beliefs That Will Affect Care: None marital status: / Current Living Situation: Other Current Living Situation Comment: Live with son current occupational status: retired 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 How many Children do You have: 2 Feels Safe at Home: Yes Childhood Exposure to Second-Hand Smoke: No Diet: regular caffeine: Yes during the past year weight has: remained stable Dental Care, Regularly: No Physical Activity Frequency: Daily Seatbelt Use: always Sunscreen Use: No Assistive Devices: Cane, CPAP and Walker Physical Exam Physical Exam: Patient is lying in bed. Comfortable at this time. He has reasonable strength detailed testing bilateral extremities. Sensory symmetric and intact. Results & Data Vital Signs (Past 12 Hours) Vital Signs Temp Pulse Pulse Resp BP Pulse Ox O2 Del Method 03/27/23 07:44 36.4 C L 73 14 146/101 H 95 Nasal Cannula 03/27/23 07:20 Nasal Cannula 03/27/23 07:18 76 92 Nasal Cannula 03/27/23 07:17 78 76 L Room Air O2 Flow Rate 03/27/23 07:44 2 03/27/23 07:20 2 03/27/23 07:18 2 03/27/23 07:17
[2023-03-27] MEDS ORDERED: LORazepam 2 MG/1 ML VIAL IV STA (12:14)
--- NOTE | 2023-03-27 13:43 | XRay Report ---
BONY ORBITS 3 VIEWS CLINICAL HISTORY: MRI clearance. FINDINGS: 3 views of the bony orbits are obtained. Correlation is made with CT of the brain dated 03/26. Skin clips are again seen in the right posterior scalp. There is no radiodense/metallic foreig n body seen in the region of the bony orbits. The bony orbits are intact as imaged. The visualized pa ranasal sinuses and the mastoid air cells appear clear. The imaged calvarium appears intact. IMPRESSION: 1. There is no radiodense/metallic foreign body seen in the region of the bony orbits. 2. Skin clips are again seen in the right posterior scalp. ACT 112: Negative or not required by law. Electronically signed by: Eddie Crum M.D. 03/27/2023 1:42 PM
[2023-03-27] MEDS: BACITRACIN OINT 0.9 GM PKT EXT SCH (14:38)
--- NOTE | 2023-03-27 14:57 | Magnetic Resonance Report ---
MR lumbar spine wo con CLINICAL HISTORY: right leg pain TECHNIQUE: Multiplanar sequences through the lumbar spine were obtained, without intravenous contrast . Comparison: Comparison is made to CT lumbar spine 03/26/2023 FINDINGS: Partial lumbarization of the S1 vertebral body is seen. L1-L2: No significant abnormality is seen. L2-L3: Broad-based posterior disc bulge is seen with mild bilateral neural foraminal stenosis. L3-L4: Broad-based posterior disc bulge results in severe canal stenosis, AP diameter 6 mm. There is inferior disc extrusion as well. There is severe right and mild left neuroforaminal stenosis. L4-L5: Disc extrusion from L3-L4 results in mild right neural foraminal stenosis. No significant elma l stenosis. L5-S1: Broad-based posterior disc bulge is seen with mild bilateral neural foraminal stenosis The spinal ligaments are intact, without evidence of disruption or abnormal signal intensity. The spi nal cord is normal in signal intensity and there is no evidence of cord contusion. There is no eviden ce of an extradural, intradural, extramedullary or intramedullary lesion. Visualized soft tissues are normal. IMPRESSION: Disc bulge and extrusion at L3-L4 results in severe canal stenosis, AP diameter 6 mm, with severe rig ht and mild left neuroforaminal stenosis. ACT 112: Negative or not required by law. Electronically signed by: Kenneth Lanza M.D. 03/27/2023 2:56 PM
[2023-03-27] MEDS ORDERED: ACETAMINOPHEN 500 MG TAB PO PRN (18:33)
--- NOTE | 2023-03-27 18:33 | Hospitalist Progress Note ---
Date of Service March 27, 2023 Assessment & Plan (1) Lumbago with sciatica, right side: Plan: P/w lower back pain with radiculopathy down RLE, worsening in the last 1-2 weeks, associated with a fall resulting in scalp laceration Patient also with chronic neuropathy on Lyrica 75 mg twice daily as an outpatient. Patient reports chronic back pain but no previous intervention or specific treatment. CT scan of the lumbar spine on admission reveals mild to moderate multilevel degenerative disc disease and facet arthrosis throughout the lumbar spine. There is also evidence of L3-4 disc dehydration as well as posterior disc herniation measuring 5 mm narrowing the thecal sac to 7 mm. There is mild bilateral neural foraminal narrowing. There is no evidence of compression fractures or burst fractures. MRI lumbar spine with severe L3-4 disc bulge with severe spinal stenosis and R>L severe neuroforaminal stenosis Appreciate Ortho SPine consult-awaiting MRI Appreciate Pain Man consult-have arranged KOFFI fo rnext week if desired - continue the patient on Lyrica 75 mg p.o. twice daily. -continue oxycodone prn -add tylenol 1000mg po q8h prn -add bowel regimen while on opioids-add senna/docusate, Miralax -continue decadron 6mg IV bid (2) Fall: Plan: Status post fall yesterday with head laceration, shoulder contusion, and now back pain PT/OT evaluations Fall precautions while in the hospital Await PT/OT recommendations (3) Laceration of scalp: Plan: [place] placed at previous ER visit. Scheduled removal in 10 days around 04/02 No pain or tenderness or erythema around the area of the laceration -add bacitracin ointment (4) Neuropathy: Plan: Diabetes HgbA1C 6.6% -continue NovoLog sliding scale Continue Lyrica (pregabalin) 75 mg p.o. twice daily (5) BPH (benign prostatic hyperplasia): Plan: no acute issues Continue tamsulosin (6) Hemochromatosis: Plan: Labs appear to be appropriate at this time Continue outpatient management (7) Depression with anxiety: Plan: Continue venlafaxine (8) DVT (deep venous thrombosis): Plan: Status post hip surgery in the past Patient is reportedly on aspirin 81 mg p.o. daily for further prophylaxis SCDs and DELANEY hose while inpatient (9) Chronic respiratory failure with hypoxia, on home oxygen therapy: Plan: Patient reports that he uses BiPAP as he feels as needed. Encourage patient to use BiPAP as prescribed-his son will bring from home serum bicarb elevated today since he did not wear it last night (10) Obesity hypoventilation syndrome: Plan: -continue BiPAP-bring in from home (11) Paralysis of diaphragm nerve: Plan: BiPAP at nighttime (12) Hypertension: Plan: BS normal Continue hydrochlorothiazide and metoprolol tartrate 12.5 mg p.o. twice daily (13) Dyslipidemia: Plan: Continue atorvastatin Outpatient management (14) Gout: Plan: Patient has no complaints right now of any joint pain. Does not appear to be on any prophylactic medications Continue to monitor (15) Morbid obesity with BMI of 45.0-49.9, adult: Plan: Patient with BMI of 46.7 kg/m. Current weight is 156.1 kg We will order nutritional consult for evaluation and patient education This is most likely contributing to patient's chronic musculoskeletal pain and possibly to recent fall Encouraged reduction in calories and focused weight loss under supervision (16) Subdural hematoma: Plan: CT head 03/23/2023 status post fall revealed a small chronic right subdural hematoma versus hygroma Repeat CT scan on admission shows stable findings with no changes Patient denies any headache or neurological change. No tenderness around the site of the subdural hematoma ok to cotinue home ASA Plan Dispo-continued stay for pain management, further Ortho SPine eval after MRI PT/OT consults placed, may need rehab Admission and Anticipated Discharge Date Admission Date: March 26, 2023 Subjective Having severe pain down RLE today after just trying to sit up with OT. Did not have his BiPAP overnight and POx was in the 70s as per nursing while sleeping. Physical Exam Constitutional: WD/WN, vitals as above Respiratory: normal respiratory effort, lungs clear to auscultation Cardiovascular: RRR, no murmur, no edema Gastrointestinal (Abdomen): normal bowel sounds, soft, nontender, no hepatosplenomegaly Results & Data Results & Data Vital Signs (Past 12 Hours) Vital Signs Temp Pulse Pulse Pulse Resp BP BP 03/27/23 15:24 36.5 C 83 18 125/73 03/27/23 07:44 36.4 C L 73 14 146/101 H 03/27/23 07:20 03/27/23 07:18 76 03/27/23 07:17 78 Pulse Ox O2 Del Method O2 Flow Rate 03/27/23 15:24 94 Nasal Cannula 2 03/27/23 07:44 95 Nasal Cannula 2 03/27/23 07:20 Nasal Cannula 2 03/27/23 07:18 92 Nasal Cannula 2 03/27/23 07:17 76 L Room Air Laboratory Results CMP, Lyme titer, Magnesium level reviewed PG Care Time/CCT Total # of Minutes Spent Total Time Spent with Patient: Total time spent is greater than 50% in coordination of care (as documented) at patient's floor/unit and/or counseling patient: Coding Level of Care Code 38582 SUB INP/OBS CARE 350MIN Diagnoses Lumbago with sciatica, right side M54.41 Back pain laterality: right Chronicity: acute Fall W19.XXXA Encounter type: initial encounter Laceration of scalp S01.01XA Encounter type: initial encounter Neuropathy G62.9 BPH (benign prostatic hyperplasia) N40.0 Hemochromatosis E83.119 Depression with anxiety F41.8 DVT (deep venous thrombosis) I82.409 Chronic respiratory failure with hypoxia, on home oxygen therapy J96.11; Z99.81 Obesity hypoventilation syndrome E66.2 Paralysis of diaphragm nerve G58.8 Hypertension I10 Dyslipidemia E78.5 Gout M10.9 Morbid obesity with BMI of 45.0-49.9, adult E66.01; Z68.42 Subdural hematoma S06.5XAA (1) Lumbago with sciatica, right side Back pain laterality: right Chronicity: acute Qualified Code(s): M54.41 - Lumbago with sciatica, right side (2) Fall Encounter type: initial encounter Qualified Code(s): W19.XXXA - Unspecified fall, initial encounter (3) Laceration of scalp Encounter type: initial encounter Qualified Code(s): S01.01XA - Laceration without foreign body of scalp, initial encounter
[2023-03-27] MEDS ORDERED: POLYETHYLENE (MIRALAX) 17 GM PACK PO PRN (18:36)
[2023-03-27] MEDS: MELATONIN 3 MG TAB PO SCH (20:56)
[2023-03-27] MEDS: DOCUSATE SODIUM/SENNA 50/8.6MG TAB PO SCH (20:56)
[2023-03-27] MEDS: ATORVASTATIN 20 MG TAB PO SCH (20:57)
[2023-03-28 06:32] LABS: Alanine Aminotransferase 56 U/L (7-52); Albumin Globulin Ratio 1.1 (0.9-2); Albumin Level 3.5 gm/dl (3.4-5.0); Alkaline Phosphatase 85 U/L (34-104); Anion Gap 5 (3-11); BUN Creatinine Ratio 35.6 (10-20); Blood Urea Nitrogen 31 mg/dl (6-23); Calcium 9.3 mg/dl (8.6-10.3); Carbon Dioxide 36 mmol/L (21-32); Chloride 93 mmol/L (98-107); Creatinine Clr Calc Pharmacy 99.2 ml/min; Est GFR (African American) 92.5 ml/min; Est GFR (Non-African American) 79.8 ml/min; Globulin 3.1 gm/dl (2.5-4.0); Glucose 203 mg/dl (70-99(Fasting)); Magnesium 1.9 mg/dl (1.7-2.4); Sodium 134 mmol/L (136-145); Total Protein 6.6 gm/dl (6.0-8.3)
[2023-03-28 07:44] LABS: Potassium 4.6 mmol/L (3.5-5.1)
[2023-03-28] MEDS: INSULIN ASPART PER UNIT CHARGE SC SCH ×4 (08:37→21:21)
[2023-03-28] MEDS: CHOLECALCIFEROL 400 UNITS 10 MCG TAB PO SCH (08:38)
[2023-03-28] MEDS: VENLAFAXINE HCL XR 150 MG CAPXR PO SCH (08:38)
[2023-03-28] MEDS: hydroCHLOROthiazide 25 MG TAB PO SCH (08:38)
[2023-03-28] MEDS: ASPIRIN 81 MG ECTAB PO SCH (08:38)
[2023-03-28] MEDS: METOPROLOL TARTRATE 25 MG TAB PO SCH ×2 (08:39→20:07)
[2023-03-28] MEDS: TAMSULOSIN HCL 0.4 MG CAP PO SCH (08:39)
[2023-03-28] MEDS: FINASTERIDE 5 MG TAB PO SCH (08:39)
[2023-03-28] MEDS: gemfibroziL 600 MG TAB PO SCH ×2 (08:39→20:08)
[2023-03-28] MEDS: MULTIVITAMIN TAB PO SCH (08:39)
[2023-03-28] MEDS: dexAMETHasone 6 MG in SYRINGE 0 ML IV SCH ×2 (08:40→20:09)
[2023-03-28] MEDS: PREGABALIN 75 MG CAP PO SCH ×2 (08:44→20:07)
[2023-03-28] MEDS: oxyCODONE HCL IR 5 MG TAB (IMMEDIATE RELEASE) PO PRN ×2 (09:19→21:25)
--- NOTE | 2023-03-28 09:47 | Orthopedic Progress Note ---
Date of Service March 28, 2023 Assessment & Plan (1) Lumbar disc herniation with radiculopathy: Plan: MRI of the lumbar spine confirms very large disc herniation L3-L4 on the right with a fragment migrating caudally and significant encroachment traversing L4 nerve root. This is concordant with his symptom complex and presentation. We discussed today possible treatment options. He has considered lumbar epidural injections. We discussed possible surgical invention. Would require lumbar laminectomy discectomy with possible fusion. He does have a significant vacuum phenomenon on his CAT scan and would be at risk for recurrent disc herniation. He is strongly considering surgical intervention. If this will be the case we will try to do so on Thursday. Admission and Anticipated Discharge Date Admission Date: March 27, 2023 Subjective Patient continues to have severe right leg radiculopathy. It is fairly incapacitating nature. He is unable to ambulate. Physical Exam Physical Exam: Patient is currently in the chair at the bedside. He is hesitant to move for exam secondary to radiculopathy. He is in obvious distress. Deficits to the right quad. Results & Data Vital Signs (Past 12 Hours) Vital Signs Temp Pulse Resp BP Pulse Ox O2 Del Method O2 Flow Rate 03/28/23 07:38 Nasal Cannula 2 03/28/23 06:59 36.4 C L 65 18 143/89 H 94 Nasal Cannula 2
[2023-03-28] MEDS: DOCUSATE SODIUM/SENNA 50/8.6MG TAB PO SCH (12:39)
[2023-03-28] MEDS: BACITRACIN OINT 0.9 GM PKT EXT SCH (12:39)
--- NOTE | 2023-03-28 18:18 | Hospitalist Progress Note ---
Date of Service March 28, 2023 Assessment & Plan (1) Lumbago with sciatica, right side: Plan: P/w lower back pain with radiculopathy down RLE, worsening in the last 1-2 weeks, associated with a fall resulting in scalp laceration Patient also with chronic neuropathy on Lyrica 75 mg twice daily as an outpatient. Patient reports chronic back pain but no previous intervention or specific treatment. CT scan of the lumbar spine on admission reveals mild to moderate multilevel degenerative disc disease and facet arthrosis throughout the lumbar spine. There is also evidence of L3-4 disc dehydration as well as posterior disc herniation measuring 5 mm narrowing the thecal sac to 7 mm. There is mild bilateral neural foraminal narrowing. There is no evidence of compression fractures or burst fractures. MRI lumbar spine with severe L3-4 disc bulge with severe spinal stenosis and R>L severe neuroforaminal stenosis Appreciate Ortho SPine consult-plan for lumbar surgery on Thursday Appreciate Pain Man consult-have arranged KOFFI fo rnext week if desired but will cancel as he is now decided to have surgery - continue Lyrica 75 mg p.o. twice daily. -continue oxycodone prn -continue tylenol 1000mg po q8h prn -continue bowel regimen while on opioids- senna/docusate, Miralax -continue decadron 6mg IV bid for now Pt is medically optimized for surgery from clinical standpoint-able to exert himself at least 4 METS without CP,SOB. WIll check ECG. He pinon shave OHS and chronically wears BiPAP-this will need to be taken into account with anesthesia Also, has a h/o post-op DVT from right hip fracture with repair in 2018--> did d/w Dr. Werner -ok to use SQ heparin for DVT prophylaxis at 48 hrs post-op (2) Fall: Plan: Status post fall 03/23 with head laceration, shoulder contusion, and now back pa in PT/OT evaluations Fall precautions while in the hospital (3) Laceration of scalp: Plan: [place] placed at previous ER visit. Scheduled removal in 10 days around 04/02 No pain or tenderness or erythema around the area of the laceration -continue bacitracin ointment (4) Neuropathy: Plan: Diabetes HgbA1C 6.6% -continue NovoLog sliding scale Continue Lyrica (pregabalin) 75 mg p.o. twice daily (5) BPH (benign prostatic hyperplasia): Plan: no acute issues Continue tamsulosin (6) Hemochromatosis: Plan: Labs appear to be appropriate at this time Continue outpatient management (7) Depression with anxiety: Plan: Continue venlafaxine (8) DVT (deep venous thrombosis): Plan: Status post hip surgery in the past Patient is reportedly on aspirin 81 mg p.o. daily for further prophylaxis-will discontinue for back surgery and favor SQ heparin as above Also with subdural chronic on head CT. WIll need to monitor this for worsening SCDs and DELANEY hose while inpatient plan to start heparin SQ 48 hrs post-op from lumbar fusion (9) Chronic respiratory failure with hypoxia, on home oxygen therapy: Plan: Patient reports that he uses BiPAP as he feels as needed. 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 twice daily (13) Dyslipidemia: Plan: Continue atorvastatin Outpatient management (14) Gout: Plan: Patient has no complaints right now of any joint pain. Does not appear to be on any prophylactic medications Continue to monitor (15) Morbid obesity with BMI of 45.0-49.9, adult: Plan: Patient with BMI of 46.7 kg/m. 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 No tenderness around the site of the subdural hematoma hold home ASA now for upcoming back surgery and also will be using heparin SQ post-op Plan Dispo-continued stay for back surgery, then may need rehab placement Discussed care with Dr. Werner Admission and Anticipated Discharge Date Admission Date: March 27, 2023 Subjective Pt had severe pain down RLE with sitting in chair today but feels better lying flat in bed. Denies any chest pains now or ever. Typically can go up and down stairs and exert himself without CP. Has never had a NV or needed a stress test that he knows of. He is wanting to have back surgery on Thursday with Dr. Werner for more definitive correction of his severe radiculopathy. Physical Exam Constitutional: WD/WN, vitals as above Respiratory: normal respiratory effort, lungs clear to auscultation Cardiovascular: RRR, no murmur, no edema Gastrointestinal (Abdomen): normal bowel sounds, soft, nontender, no hepatosplenomegaly Results & Data Results & Data Vital Signs (Past 12 Hours) Vital Signs Temp Pulse Resp BP Pulse Ox O2 Del Method O2 Flow Rate 03/28/23 15:07 36.5 C 75 18 127/74 94 Nasal Cannula 2 03/28/23 07:38 Nasal Cannula 2 03/28/23 06:59 36.4 C L 65 18 143/89 H 94 Nasal Cannula 2 Laboratory Results CMP, magnesium reviewed PG Care Time/CCT Total # of Minutes Spent Total Time Spent with Patient: Total time spent is greater than 50% in coordination of care (as documented) at patient's floor/unit and/or counseling patient: Coding Level of Care Code 37529 SUB INP/OBS CARE 2/35MIN Diagnoses Lumbago with sciatica, right side M54.41 Back pain laterality: right Chronicity: acute Fall W19.XXXA Encounter type: initial encounter Laceration of scalp S01.01XA Encounter type: initial encounter Neuropathy G62.9 BPH (benign prostatic hyperplasia) N40.0 Hemochromatosis E83.119 Depression with anxiety F41.8 DVT (deep venous thrombosis) I82.409 Chronic respiratory failure with hypoxia, on home oxygen therapy J96.11; Z99.81 Obesity hypoventilation syndrome E66.2 Paralysis of diaphragm nerve G58.8 Hypertension I10 Dyslipidemia E78.5 Gout M10.9 Morbid obesity with BMI of 45.0-49.9, adult E66.01; Z68.42 Subdural hematoma S06.5XAA (1) Lumbago with sciatica, right side Back pain laterality: right Chronicity: acute Qualified Code(s): M54.41 - Lumbago with sciatica, right side (2) Fall Encounter type: initial encounter Qualified Code(s): W19.XXXA - Unspecified fall, initial encounter (3) Laceration of scalp Encounter type: initial encounter Qualified Code(s): S01.01XA - Laceration without foreign body of scalp, initial encounter
[2023-03-28] MEDS: ATORVASTATIN 20 MG TAB PO SCH (20:07)
[2023-03-28] MEDS: MELATONIN 3 MG TAB PO SCH (20:08)
[2023-03-29] MEDS: INSULIN ASPART PER UNIT CHARGE SC SCH ×4 (08:43→21:55)
[2023-03-29] MEDS: dexAMETHasone 6 MG in SYRINGE 0 ML IV SCH ×2 (08:44→20:16)
[2023-03-29] MEDS: PREGABALIN 75 MG CAP PO SCH ×2 (08:45→20:13)
[2023-03-29] MEDS: VENLAFAXINE HCL XR 150 MG CAPXR PO SCH (08:45)
[2023-03-29] MEDS: CHOLECALCIFEROL 400 UNITS 10 MCG TAB PO SCH (08:45)
[2023-03-29] MEDS: BACITRACIN OINT 0.9 GM PKT EXT SCH (08:45)
[2023-03-29] MEDS: hydroCHLOROthiazide 25 MG TAB PO SCH (08:45)
[2023-03-29] MEDS: TAMSULOSIN HCL 0.4 MG CAP PO SCH (08:45)
[2023-03-29] MEDS: FINASTERIDE 5 MG TAB PO SCH (08:46)
[2023-03-29] MEDS: METOPROLOL TARTRATE 25 MG TAB PO SCH ×2 (08:46→20:15)
[2023-03-29] MEDS: gemfibroziL 600 MG TAB PO SCH ×2 (08:46→20:14)
[2023-03-29] MEDS: MULTIVITAMIN TAB PO SCH (08:46)
[2023-03-29] MEDS: DOCUSATE SODIUM/SENNA 50/8.6MG TAB PO SCH (08:46)
[2023-03-29 10:18] LABS: Albumin Globulin Ratio 1.2 (0.9-2); Albumin Level 3.5 gm/dl (3.4-5.0); BUN Creatinine Ratio 41.8 (10-20); Bilirubin,Total 1.1 mg/dl (0.2-1.0); Calcium 9.2 mg/dl (8.6-10.3); Creatinine Clr Calc Pharmacy 109.2 ml/min; Est GFR (African American) 96.2 ml/min; Globulin 2.9 gm/dl (2.5-4.0); Potassium 4.1 mmol/L (3.5-5.1); Total Protein 6.4 gm/dl (6.0-8.3)
[2023-03-29] MEDS: POLYETHYLENE (MIRALAX) 17 GM PACK PO SCH (10:36)
--- NOTE | 2023-03-29 11:24 | Orthopedic Progress Note ---
Date of Service March 29, 2023 Assessment & Plan (1) Lumbar disc herniation with radiculopathy: Plan: Assessment lumbar disc condition with caudal migration of a herniated free fragment. Plan at length discussion today with the patient reviewing his pathology and treatment plan. He would like proceed with surgery. It would require lumbar decompression possible fusion L3-L4. He will require an extensive decompression to safely and adequately retrieve all the disc fragments and does have evidence of significant vacuum phenomenon at the L3-L4 level combined with neuroforaminal disease which predisposes him to continued neural compression particularly foraminal nature. Subsequently fusion might be necessary. Course benefits pros cons again outlined in detail. He is n.p.o. after midnight. Admission and Anticipated Discharge Date Admission Date: March 27, 2023 Subjective Patient continues to have severe incapacitating right leg pain. He is only comfortable lying in bed. Physical Exam Physical Exam: On exam is obvious distress. Continue weakness to testing the right lower extremity. Tension signs on the right. Results & Data Vital Signs (Past 12 Hours) Vital Signs Pulse Resp BP Pulse Ox O2 Del Method 03/29/23 06:58 70 18 143/85 H 94 CPAP
--- NOTE | 2023-03-29 12:57 | Hospitalist Progress Note ---
Date of Service March 29, 2023 Assessment & Plan (1) Lumbago with sciatica, right side: Plan: P/w lower back pain with radiculopathy down RLE, worsening in the last 1-2 weeks, associated with a fall resulting in scalp laceration Patient also with chronic neuropathy on Lyrica 75 mg twice daily as an outpatient. Patient reports chronic back pain but no previous intervention or specific treatment. CT scan of the lumbar spine on admission reveals mild to moderate multilevel degenerative disc disease and facet arthrosis throughout the lumbar spine. There is also evidence of L3-4 disc dehydration as well as posterior disc herniation measuring 5 mm narrowing the thecal sac to 7 mm. There is mild bilateral neural foraminal narrowing. There is no evidence of compression fractures or burst fractures. MRI lumbar spine with severe L3-4 disc bulge with severe spinal stenosis and R>L severe neuroforaminal stenosis Appreciate Ortho Spine consult-plan for lumbar surgery on Thursday Appreciate Pain Man consult-have arranged KOFFI for next week if desired but will cancel as he is now decided to have surgery -continue Lyrica 75 mg p.o. twice daily. -continue oxycodone prn -continue tylenol 1000mg po q8h prn -continue bowel regimen while on opioids- senna/docusate, Miralax -continue decadron 6mg IV bid for now but defer to Ortho spine about continuation of such post op -continue bowel regimen with underlying chronic constipation-senna/docusate, Miralax Pt is medically optimized for surgery from clinical standpoint-able to exert himself at least 4 METS without CP,SOB. ECG with RBBB, LAFB, unchanged from previous, sinus thryhm, no heart murmur, no renal impairment. He does have OHS and chronically wears BiPAP-this will need to be taken into account with anesthesia Also, has a h/o post-op DVT from right hip fracture with repair in 2018--> did d/w Dr. Werner -ok to use SQ heparin for DVT prophylaxis at 48 hrs post-op Repeat head CT noncon today to reassess what appears to be a chronic SDH that he was unaware of--> feel if this is stable, ok to cautiously use low dose heparin SQ 5000 units bid 2 days postop and watch for any headaches, neuro dysfunction, etc. Overall, medically optimized for surgery with average CV perioperative risk for this intermediate risk surgery (2) Fall: Plan: Status post fall 03/23 with head laceration, shoulder contusion, and now back pain PT/OT evaluations Fall precautions while in the hospital (3) Laceration of scalp: Plan: [place] placed at previous ER visit. Scheduled removal in 10 days around 04/02 No pain or tenderness or erythema around the area of the laceration -continue bacitracin ointment (4) Neuropathy: Plan: Diabetes HgbA1C 6.6% -continue NovoLog sliding scale -Continue Lyrica (pregabalin) 75 mg p.o. twice daily (5) BPH (benign prostatic hyperplasia): Plan: no acute issues Continue tamsulosin (6) Hemochromatosis: Plan: hgb 16 here LFTs mild elevation here and over the years, no liver imaging in our records monitor CBC, LFTs (7) Depression with anxiety: Plan: stable Continue venlafaxine (8) DVT (deep venous thrombosis): Plan: h/o DVT Status post hip surgery in 2018 Patient is reportedly on aspirin 81 mg p.o. daily for further prophylaxis-will discontinue for back surgery and favor SQ heparin as above Also with subdural chronic on head CT. WIll need to monitor this for worsening while on SQ heparin SCDs and DELANEY hose while inpatient plan to start heparin 5000 units bid SQ 48 hrs post-op from lumbar fusion (9) Chronic respiratory failure with hypoxia, on home oxygen therapy: Plan: Patient reports that he uses BiPAP as he feels as needed. 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 twice daily mild hyponatremia likely from HCTZ--> hold HCTZ on AM of surgery and restart post-op if BPs stable (13) Dyslipidemia: Plan: Continue atorvastatin, gemfibrozil (14) Gout: Plan: Patient has no complaints right now of any joint pain. Does not appear to be on any prophylactic medications Continue to monitor (15) Morbid obesity with BMI of 45.0-49.9, adult: Plan: Patient with BMI of 46.7 kg/m. 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 No tenderness around the site of the subdural hematoma hold home ASA now for upcoming back surgery and also will be using heparin SQ post-op check repeat head CT one more time on 03/29 prior to surgery and check head CT prn any neuro symptoms post-op after on SQ heparin (17) Elevated LFTs: Plan: TBili only 1.1, ALT mildly elevated No abd pain or nausea check CK as could be mild rhabdo from recent falls and contusion could be related to HH as baove follow LFs no need for imaging at this point Plan Dispo-continued stay for back surgery, then may need rehab placement Admission and Anticipated Discharge Date Admission Date: March 27, 2023 Subjective Pt doing ok as long as he doesn't sit up. He is ready to have surgery tomorrow Denies headaches, dizziness, CP, SOB. No BM in 4-5 days. Physical Exam Constitutional: WD/WN, vitals as above Eyes: PERRL, conjunctivae normal, anicteric sclerae ENMT: external ear and nose normal, oropharynx normal Respiratory: normal respiratory effort, lungs clear to auscultation Cardiovascular: RRR, no murmur, no edema Gastrointestinal (Abdomen): normal bowel sounds, soft, nontender, no hepatosplenomegaly Skin: Trauma: + contusion (right shoulder ecchymosis) scalp lac with janet in place, scab formation, no erythema or drainage Neurologic: PERRL, EOMI, accommodation nl, no face palsy, no dysarthria Psychiatric: A+Ox3, euthymic affect Results & Data Results & Data Vital Signs (Past 12 Hours) Vital Signs Pulse Resp BP Pulse Ox O2 Del Method 03/29/23 06:58 70 18 143/85 H 94 CPAP Laboratory Results CMP reviewed PG Care Time/CCT Total # of Minutes Spent Total Time Spent with Patient: Total time spent is greater than 50% in coordination of care (as documented) at patient's floor/unit and/or counseling patient: Coding Level of Care Code 65167 SUB INP/OBS CARE 2/35MIN Diagnoses Lumbago with sciatica, right side M54.41 Back pain laterality: right Chronicity: acute Fall W19.XXXA Encounter type: initial encounter Laceration of scalp S01.01XA Encounter type: initial encounter Neuropathy G62.9 BPH (benign prostatic hyperplasia) N40.0 Hemochromatosis E83.119 Depression with anxiety F41.8 DVT (deep venous thrombosis) I82.409 Chronic respiratory failure with hypoxia, on home oxygen therapy J96.11; Z99.81 Obesity hypoventilation syndrome E66.2 Paralysis of diaphragm nerve G58.8 Hypertension I10 Dyslipidemia E78.5 Gout M10.9 Morbid obesity with BMI of 45.0-49.9, adult E66.01; Z68.42 Subdural hematoma S06.5XAA Elevated LFTs R79.89 (1) Lumbago with sciatica, right side Back pain laterality: right Chronicity: acute Qualified Code(s): M54.41 - Lumbago with sciatica, right side (2) Fall Encounter type: initial encounter Qualified Code(s): W19.XXXA - Unspecified fall, initial encounter (3) Laceration of scalp Encounter type: initial encounter Qualified Code(s): S01.01XA - Laceration w ithout foreign body of scalp, initial encounter
[2023-03-29] MEDS: oxyCODONE HCL IR 5 MG TAB (IMMEDIATE RELEASE) PO PRN (14:22)
--- NOTE | 2023-03-29 15:45 | CT Scan Report ---
CT head/brain wo con CLINICAL HISTORY: 82 years-old Male with f/u SDH. Follow-up study in a patient with right-sided extr a-axial collectionr TECHNIQUE: Multiple axial CT images of the head were obtained without contrast. A dose lowering tech nique was utilized adhering to the principles of ALARA. CT DOSE: 625.80 mGy.cm COMPARISON: None. FINDINGS: No acute intracranial hemorrhage, midline shift, intracranial mass, hydrocephalus, territorial ischem ia or acute extra-axial collection. CSF attenuating prominence of the extra-axial space adjacent to t he right frontal lobe measures up to 1.2 cm which is stable and again results in mild mass effect on the adjacent cerebral hemisphere. Involutional changes with mild white matter hypodensities suggestiv e of chronic microvascular ischemic disease. Cerebrovascular calcifications. Mildly motion degraded e xam. The calvarium is intact. The paranasal sinuses, mastoid air cells, and middle ear cavities are c lear. Contusion with laceration and skin janet of the right parietal scalp. IMPRESSION: 1. No acute intracranial abnormality or calvarial fracture. 2. Stable small chronic right subdural hematoma versus hygroma. ACT 112: Negative or not required by law. The above report was generated using voice recognition software. It may contain grammatical, syntax o r spelling errors. Electronically signed by: Julio Cesar Haji M.D. 03/29/2023 3:42 PM
[2023-03-29] MEDS: MELATONIN 3 MG TAB PO SCH (20:13)
[2023-03-29] MEDS: ATORVASTATIN 20 MG TAB PO SCH (20:15)
[2023-03-30] MEDS ORDERED: Nursing to Pharmacy Communication SCH (01:45)
[2023-03-30] MEDS: INSULIN ASPART PER UNIT CHARGE SC SCH ×4 (05:58→22:39)
[2023-03-30] MEDS: PREGABALIN 75 MG CAP PO SCH ×2 (08:30→20:48)
[2023-03-30] MEDS: METOPROLOL TARTRATE 25 MG TAB PO SCH ×2 (08:30→20:50)
[2023-03-30] MEDS: VENLAFAXINE HCL XR 150 MG CAPXR PO SCH (08:31)
[2023-03-30] MEDS: gemfibroziL 600 MG TAB PO SCH ×2 (08:31→20:49)
[2023-03-30] MEDS: DOCUSATE SODIUM/SENNA 50/8.6MG TAB PO SCH ×2 (08:32→20:51)
[2023-03-30] MEDS: MULTIVITAMIN TAB PO SCH (08:32)
[2023-03-30] MEDS: CHOLECALCIFEROL 400 UNITS 10 MCG TAB PO SCH (08:32)
[2023-03-30] MEDS: FINASTERIDE 5 MG TAB PO SCH (08:32)
[2023-03-30] MEDS: TAMSULOSIN HCL 0.4 MG CAP PO SCH (08:32)
[2023-03-30] MEDS: POLYETHYLENE (MIRALAX) 17 GM PACK PO SCH (08:33)
[2023-03-30] MEDS: dexAMETHasone 6 MG in SYRINGE 0 ML IV SCH (08:33)
[2023-03-30] MEDS: BACITRACIN OINT 0.9 GM PKT EXT SCH (08:35)
[2023-03-30 09:10] LABS: Basophils # (auto) 0.01 K/uL (0-0.2); Basophils % (auto) 0.1 %; Hematocrit (blood only) 49.1 % (42.0-52.0); Hemoglobin 17.5 g/dl (14.0-18.0); Immature Granulocytes # (auto) 0.05 K/uL (0.01-0.20); Immature Granulocytes % (auto) 0.5 %; Lymphocytes # (auto) 1.02 K/uL (1.2-3.4); Lymphocytes % (auto) 9.4 %; Mean Corpuscular Hemoglobin 34.9 pg (25.0-34.0); Mean Corpuscular Hgb Conc 35.6 g/dL (32.0-36.0); Monocytes # (auto) 0.71 K/uL (0.11-0.59); Monocytes % (auto) 6.6 %; Neutrophils # (auto) 9.04 K/uL (1.40-6.50); Neutrophils % (auto) 83.4 %; Platelet Count 144 K/uL (130-400); RDW Coefficient of Variation 12.6 % (11.5-14.5); RDW Standard Deviation 45.3 fL (36.4-46.3); Red Blood Count 5.01 M/uL (4.70-6.10); White Blood Count 10.83 K/ul (4.8-10.8)
[2023-03-30 09:27] LABS: Albumin Globulin Ratio 1.2 (0.9-2); Albumin Level 3.6 gm/dl (3.4-5.0); BUN Creatinine Ratio 43.4 (10-20); Bilirubin,Total 1.2 mg/dl (0.2-1.0); Calcium 9.2 mg/dl (8.6-10.3); Creatinine Clr Calc Pharmacy 113.5 ml/min; Est GFR (African American) 97.8 ml/min; Est GFR (Non-African American) 84.4 ml/min; Globulin 2.9 gm/dl (2.5-4.0); Magnesium 1.9 mg/dl (1.7-2.4); Potassium 4.3 mmol/L (3.5-5.1); Total Protein 6.5 gm/dl (6.0-8.3)
[2023-03-30] MEDS ORDERED: ONDANSETRON INJ 2 MG/ML 2 ML VIAL ONE (11:01)
[2023-03-30] MEDS ORDERED: fentaNYL citrate PF 100 MCG/2 ML VIAL ONE ×2 (11:01)
[2023-03-30] MEDS ORDERED: GLYCOPYRROLATE 0.2 MG/ML VIAL ONE (11:01)
[2023-03-30] MEDS ORDERED: NEOSTIGMINE METHYLSULFATE 1 MG/ML 10ML VIAL ONE (11:01)
[2023-03-30] MEDS ORDERED: MIDAZOLAM HCL 1 MG/ML 2ML VIAL ONE (11:01)
[2023-03-30] MEDS ORDERED: LIDOCAINE 2% 2 ML VIAL/AMP(20MG/ML) INFIL ONE (11:01)
[2023-03-30] MEDS ORDERED: PROPOFOL IV EMULSION 10 MG/ML 20 ML VIAL IV ONE (11:01)
[2023-03-30] MEDS ORDERED: DEXAMETHASONE SOD INJ 4 MG/ML VIAL ONE ×2 (11:01→12:49)
--- NOTE | 2023-03-30 11:32 | Anesthesiology Consultation ---
Date of Service March 30, 2023 Assessment & Plan (1) Encounter for pre-operative examination: Chart Review Chart Review: Acceptable Risk for Surgery and Patient NOT seen in Pre Admission Testing Pt is medically optimized for surgery from clinical standpoint-able to exert himself at least 4 METS without CP,SOB. ECG with RBBB, LAFB, unchanged from previous, sinus thryhm, no heart murmur, no renal impairment. He does have OHS and chronically wears BiPAP-this will need to be taken into account with anesthesia Also, has a h/o post-op DVT from right hip fracture with repair in 2018--> did d/w Dr. Werner -ok to use SQ heparin for DVT prophylaxis at 48 hrs post-op Repeat head CT noncon today to reassess what appears to be a chronic SDH that he was unaware of--> feel if this is stable, ok to cautiously use low dose heparin SQ 5000 units bid 2 days postop and watch for any headaches, neuro dysfunction, etc. Overall, medically optimized for surgery with average CV perioperative risk for this intermediate risk surger Consults Requested none History Surgery Operation Date: 03/30/23 07:00 Proposed Procedures p L3-L4 Decompression Possible Fusion - Sujit Werner DO Height/Weight Height: 6 ft Weight: 156.1 kg Allergies Allergy/AdvReac Type Severity Reaction Status Date / Time No Known Allergies Allergy Unverified 03/26/23 10:15 Medications Home Medications Medication Instructions Recorded Confirmed Last Taken ibuprofen 200 mg tablet 200 mg PO QID PRN Pain 07/07/19 03/26/23 Unknown aspirin 81 mg tablet,delayed 81 mg PO DAILY 10/27/19 03/26/23 03/25/23 release atorvastatin 40 mg tablet 20 mg PO HS 10/27/19 03/26/23 03/25/23 multivitamin 1 tab PO DAILY 10/27/19 03/26/23 03/25/23 tamsulosin 0.4 mg capsule 0.4 mg PO DAILY 10/27/19 03/26/23 03/25/23 oxycodone 5 mg tablet 5 mg PO Q6H PRN pain #7 tabs 03/18/23 03/26/23 03/26/23 hydrochlorothiazide 25 mg tablet 25 mg PO DAILY 03/26/23 03/26/23 03/25/23 hydroxyzine HCl 10 mg tablet 10 mg PO QID PRN Anxiety 03/26/23 03/26/23 03/25/23 metformin 500 mg tablet 500 mg PO BID 03/26/23 03/26/23 03/25/23 omega 2-tde-czk-fish oil 1,000 mg 1 cap PO DAILY 03/26/23 03/26/23 03/25/23 (120 mg-180 mg) capsule (Fish Oil) pregabalin 75 mg capsule 75 mg PO BID 03/26/23 03/26/23 03/25/23 venlafaxine 150 mg 150 mg PO DAILY 03/26/23 03/26/23 03/25/23 capsule,extended release 24 hr Active Medications Generic Name Dose Route Start Last Admin Trade Name Kameronq PRN Reason Stop Dose Admin Atorvastatin Calcium 20 mg 03/26/23 21:00 03/29/23 20:15 Atorvastatin 20 Mg Tab PO 04/25/23 20:59 20 mg HS ELIZABETH Administration Bacitracin 1 appln 03/27/23 11:00 03/30/23 08:35 Bacitracin Oint 0.9 Gm Pkt EXT 04/26/23 10:59 1 appln DAILY ELIZABETH Administration Finasteride 5 mg 03/26/23 10:51 03/30/23 08:32 Finasteride 5 Mg Tab PO 04/25/23 10:50 5 mg DAILY ELIZABETH Administration Gemfibrozil 600 mg 03/26/23 10:51 03/30/23 08:31 Gemfibrozil 600 Mg Tab PO 04/25/23 10:50 600 mg BID ELIZABETH Administration Dexamethasone 6 mg/ Syringe 1.5 mls @ 1 mls/min 03/26/23 12:30 03/30/23 08:33 IV 04/25/23 12:29 1 mls/min BID ELIZABETH Administration Insulin Aspart 0 units 03/30/23 06:00 03/30/23 05:58 Insulin Aspart Per Unit Charge SC 04/29/23 05:59 2 units Q6 ELIZABETH Administration Lorazepam 0.5 mg 03/26/23 12:24 03/28/23 09:20 Lorazepam 0.5 Mg Tab PO 04/25/23 10:50 0.5 mg DAILY PRN Administration anxiety Melatonin 9 mg 03/26/23 21:00 03/29/23 20:13 Melatonin 3 Mg Tab PO 04/25/23 20:59 9 mg HS ELIZABETH Administration Metoprolol Tartrate 12.5 mg 03/26/23 10:51 03/30/23 08:30 Metoprolol Tartrate 25 Mg Tab PO 04/25/23 10:50 12.5 mg BID ELIZABETH Administration Multivitamins 1 tab 03/27/23 09:00 03/30/23 08:32 Multivitamin Tab PO 04/26/23 08:59 1 tab DAILY ELIZABETH Administration Oxycodone HCl 5 mg 03/27/23 18:35 03/29/23 14:22 Oxycodone Hcl Ir 5 Mg Tab (Immediate Release) PO 04/09/23 10:50 5 mg Q6H PRN Administration moderate-severe pain Polyethylene Glycol 17 gm 03/29/23 09:30 03/30/23 08:33 Polyethylene (Miralax) 17 Gm Pack PO 04/28/23 09:29 Not Given DAILY ELIZABETH Pregabalin 75 mg 03/26/23 21:00 03/30/23 08:30 Pregabalin 75 Mg Cap PO 04/25/23 20:59 75 mg BID ELIZABETH Administration Senna/Docusate Sodium 1 tab 03/27/23 18:45 03/30/23 08:32 Docusate Sodium/Senna 50/8.6mg Tab PO 04/26/23 18:44 1 tab QAM ELIZABETH Administration Tamsulosin HCl 0.4 mg 03/26/23 10:51 03/30/23 08:32 Tamsulosin Hcl 0.4 Mg Cap PO 04/25/23 10:50 0.4 mg DAILY ELIZABETH Administration Venlafaxine HCl 150 mg 03/26/23 12:30 03/30/23 08:31 Venlafaxine Hcl Xr 150 Mg Capxr PO 04/25/23 12:29 150 mg DAILY ELIZABETH Administration Vitamin D 400 units 03/27/23 09:00 03/30/23 08:32 Cholecalciferol 400 Units 10 Mcg Tab PO 04/26/23 08:59 400 units DAILY ELIZABETH Administration Past Medical History Medical History (Updated 03/30/23 @ 11:32 by Sridhar Solorio MD) Anxiety Arthritis BPH (benign prostatic hyperplasia) Chronic respiratory failure with hypoxia, on home oxygen therapy Depression with anxiety DVT (deep venous thrombosis) Provoked October 2017 Dyslipidemia Encounter for pre-operative examination Gout Hemochromatosis Hypertension Lumbago with sciatica, right side Morbid obesity with BMI of 45.0-49.9, adult Neuropathy Obesity hypoventilation syndrome Olecranon bursitis of left elbow Osteoarthritis 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 Subdural hematoma S/P fall 03/23/2023 CT Head with chronic hematoma vs hygroma Thrombocytopenia Past Family History Family History Mother Lung cancer Lung disease Brother Lung cancer Lung disease Denies family history of Ovarian cancer Prostate cancer Myocardial infarction Breast cancer Colorectal cancer Past Surgical History Surgical History Fracture of right hip "S/P repair" H/O umbilical hernia repair Hx of cholecystectomy Hx of knee surgery 1989 Right wrist fracture "S/P repair" Social History Smoking Status: Never smoker Do You Dip or Chew Tobacco: No Hx Alcohol Use: Yes Alcohol type: beer alcohol intake frequency: holidays/special occasions only Hx Substance Use: No Physical Exam Vital Signs Last Vital Signs Temp 36.3 C L 03/30/23 07:18 Pulse 67 03/30/23 07:18 Resp 18 03/30/23 07:18 BP 155/85 H 03/30/23 07:18 Pulse Ox 95 03/30/23 07:18 O2 Del Method Room Air 03/30/23 07:18 O2 Flow Rate 2 03/28/23 15:07 Testing Laboratory Results 03/30/23 08:37 03/30/23 08:37 Hemoglobin A1c 6.6 % (4.5-5.6) H 03/27/23 05:42 03/30/23 05:46 POC Glucose 188 H Electrocardiogram Date: 03/29/23 Normal sinus rhythm Right bundle branch block Left anterior fascicular block Bifascicular block Abnormal ECG When compared with ECG of 04-FEB-2018 06:47, No significant change was found Chest X-Ray Date: 03/23/23 XR chest 1V portable HISTORY: 82 years-old Male fall acute chest and right shoulder pain status post trauma COMPARISON: Right shoulder radiographs the same day, chest radiograph 02/04/2008 TECHNIQUE: AP view of the chest FINDINGS: Cardiac silhouette is enlarged. Mild left hemidiaphragmatic elevation. Bibasilar densities favor atelectasis. No pneumothorax or large pleural effusion. Chronic blunting of the costophrenic angles. Degenerative changes of the shoulders and spine. IMPRESSION: No acute process of the chest. Other Testing CT head 03/29/23: FINDINGS: No acute intracranial hemorrhage, midline shift, intracranial mass, hydrocephalus, territorial ischemia or acute extra-axial collection. CSF attenuating prominence of the extra-axial space adjacent to the right frontal lobe measures up to 1.2 cm which is stable and again results in mild mass effect on the adjacent cerebral hemisphere. Involutional changes with mild white matter hypodensities suggestive of chronic microvascular ischemic disease. Cerebrovascular calcifications. Mildly motion degraded exam. The calvarium is intact. The paranasal sinuses, mastoid air cells, and middle ear cavities are clear. Contusion with laceration and skin janet of the right parietal scalp. IMPRESSION: 1. No acute intracranial abnormality or calvarial fracture. 2. Stable small chronic right subdural hematoma versus hygroma.
--- NOTE | 2023-03-30 11:40 | History & Physical Bridge Note ---
Date of Service March 30, 2023 History & Physical Bridge Note I have examined the patient, reviewed the History & Physical and in the interval since the performance of the History & Physical I have noted the following changes of clinical significance: no changes noted Lumbar decompression possible fusion L3-L4
[2023-03-30] MEDS ORDERED: ceFAZolin 3000MG/72.5 ML BAG IV ONE (11:48)
[2023-03-30] MEDS ORDERED: HYDROmorphone INJ 1 MG/ML SYRINGE IV PRN ×2 (11:54→15:50)
[2023-03-30] MEDS ORDERED: fentaNYL citrate PF 100 MCG/2 ML VIAL IV PRN (11:54)
[2023-03-30] MEDS ORDERED: ONDANSETRON INJ 2 MG/ML 2 ML VIAL IV PRN ×2 (11:54→15:50)
[2023-03-30] MEDS ORDERED: ePHEDrine sulfate 50 MG/ML AMP IV PRN (11:54)
[2023-03-30] MEDS ORDERED: ATROPINE SULFATE 0.1 MG/ML 10ML SYR IV PRN (11:54)
[2023-03-30] MEDS ORDERED: ceFAZolin 330 MG/ML 1 GM VIAL ONE (11:59)
[2023-03-30] MEDS ORDERED: BUPIVACAINE/EPINEPHRINE 0.25% 1:200,000 30 ML VIAL ONE (11:59)
[2023-03-30] MEDS ORDERED: PHENYLEPHRINE HCL 10 MG/ML VIAL ONE (12:34)
--- NOTE | 2023-03-30 13:43 | Hospitalist Progress Note ---
Date of Service March 30, 2023 Assessment & Plan (1) Lumbago with sciatica, right side: Plan: - P/w lower back pain with radiculopathy down RLE, worsening in the last 1-2 weeks, associated with a fall resulting in scalp laceration - Patient also with chronic neuropathy on Lyrica 75 mg twice daily as an outpatient. Patient reports chronic back pain but no previous intervention or specific treatment. - CTL-spine: mild to moderate multilevel degenerative disc disease and facet arthrosis throughout the lumbar spine. There is also evidence of L3-4 disc dehydration as well as posterior disc herniation measuring 5 mm narrowing the thecal sac to 7 mm. There is mild bilateral neural foraminal narrowing. There is no evidence of compression fractures or burst fractures. -MRIlumbar: severe L3-4 disc bulge with severe spinal stenosis and R>L severe neuroforaminal stenosis Anticipate lumbar decompression and possible fusion today -continue Lyrica 75 mg p.o. twice daily. -continue oxycodone prn -continue tylenol 1000mg po q8h prn -continue bowel regimen while on opioids- senna/docusate, Miralax -continue decadron 6mg IV bid for now but defer to Ortho spine about continuation of such post op -continue bowel regimen with underlying chronic constipation-senna/docusate, Miralax Pt is medically optimized for surgery from clinical standpoint-able to exert himself at least 4 METS without CP,SOB. ECG with RBBB, LAFB, unchanged from previous, sinus thryhm, no heart murmur, no renal impairment. He does have OHS and chronically wears BiPAP-this will need to be taken into account with anesthesia Also, has a h/o post-op DVT from right hip fracture with repair in 2018--> did d/w Dr. Werner -margareth to use SQ heparin for DVT prophylaxis at 48 hrs post-op Repeat CT Noncon 03/29 to reassess for chronic SDH was without change, postop subcu heparin for DVT prophylaxis as noted. Monitor closely for headache/neurologic change (2) Fall: Plan: Status post fall 03/23 with head laceration, shoulder contusion, and now back pain PT/OT evaluations Fall precautions while in the hospital (3) Laceration of scalp: Plan: [place] placed at previous ER visit. Scheduled removal in 10 days around 04/02 No pain or tenderness or erythema around the area of the laceration -continue bacitracin ointment (4) Neuropathy: Plan: Diabetes HgbA1C 6.6% -continue NovoLog sliding scale -Continue Lyrica (pregabalin) 75 mg p.o. twice daily (5) BPH (benign prostatic hyperplasia): Plan: no acute issues Continue tamsulosin (6) Hemochromatosis: Plan: hgb 16 here LFTs mild elevation here and over the years, no liver imaging in our records A.m. labs ordered (7) Depression with anxiety: Plan: stable Continue venlafaxine (8) DVT (deep venous thrombosis): Plan: h/o DVT Status post hip surgery in 2018 Patient is reportedly on aspirin 81 mg p.o. daily for further prophylaxis-these were held for back surgery and favor SQ heparin as above Also with subdural chronic on head CT. WIll need to monitor this for worsening while on SQ heparin, repeat CT prior to surgery was stable SCDs and DELANEY hose while inpatient plan to start heparin 5000 units bid SQ 48 hrs post-op from lumbar fusion (9) Chronic respiratory failure with hypoxia, on home oxygen therapy: Plan: Patient reports that he uses BiPAP as he feels as needed. 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 twice daily mild hyponatremia likely from HCTZ--> HCTZ held on AM of surgery and restart post-op if BPs stable (13) Dyslipidemia: Plan: Continue atorvastatin, gemfibrozil (14) Gout: Plan: Patient has no complaints right now of any joint pain. Does not appear to be on any prophylactic medications Continue to monitor (15) Morbid obesity with BMI of 45.0-49.9, adult: Plan: Patient with BMI of 46.7 kg/m. Current weight is 156.1 kg (16) Subdural hematoma: Plan: CT head 03/23/2023 status post fall revealed a small chronic right subdural hematoma versus hygroma Repeat CT scan on admission shows stable findings with no changes. Subsequent CT 03/29 remained stable Patient denies any headache or neurological change. No tenderness around the site of the subdural hematoma hold home ASA now for upcoming back surgery and also will be using heparin SQ post-op (17) Elevated LFTs: Plan: TBili only 1.1, ALT mildly elevated No abd pain or nausea History of HH Trended Plan Dispo-continued stay for back surgery, then may need rehab placement Admission and Anticipated Discharge Date Admission Date: March 27, 2023 Subjective Patient seen at the bedside preoperatively. He reports he feels well at the bedside, does not have any pain or symptoms while laying in bed but notes his symptoms are usually when he sit ups and moves. Is anxious to have surgery done, but no questions or concerns at time of assessment. He denies any numbness/tingling in the lower extremities. Denies headache. No chest pain, chest pressure, shortness of breath, fever, chills overnight. Review of Systems Review of Systems: All systems reviewed & are unremarkable except as noted in HPI & below Physical Exam Physical Exam: General: A&Ox3. NAD. Cooperative. HEENT: Normocephalic. Scalp lack in place, no dehiscence/discharge/bleeding Pulm: CTAB A&P. -wheezes, -rales, -rhonchi. Symmetrical chest rise. No increased work of breathing. No respiratory distress. Cardiac: RRR, -mrg. Radial pulses intact and symmetrical. Abdominal: Nontender, nondistended, soft. BS present. Extremities: Warm, dry. Ankle dorsiflexion/plantarflexion intact with full strength. Sensation soft touch is intact in ankles bilaterally. Results & Data Results & Data Vital Signs (Past 12 Hours) Vital Signs Temp Pulse Resp BP BP Pulse Ox O2 Del Method 03/30/23 11:29 36.4 C L 79 22 154/91 H 92 Room Air 03/30/23 07:18 36.3 C L 67 18 155/85 H 95 Room Air PG Care Time/CCT Total # of Minutes Spent Total Time Spent with Patient: Total time spent is greater than 50% in coordination of care (as documented) at patient's floor/unit and/or counseling patient: Coding Level of Care Code 94437 SUB INP/OBS CARE 2/35MIN Diagnoses Lumbago with sciatica, right side M54.41 Back pain laterality: right Chronicity: acute Fall W19.XXXA Encounter type: initial encounter Laceration of scalp S01.01XA Encounter type: initial encounter Neuropathy G62.9 BPH (benign prostatic hyperplasia) N40.0 Hemochromatosis E83.119 Depression with anxiety F41.8 DVT (deep venous thrombosis) I82.409 Chronic respiratory failure with hypoxia, on home oxygen therapy J96.11; Z99.81 Obesity hypoventilation syndrome E66.2 Paralysis of diaphragm nerve G58.8 Hypertension I10 Dyslipidemia E78.5 Gout M10.9 Morbid obesity with BMI of 45.0-49.9, adult E66.01; Z68.42 Subdural hematoma S06.5XAA Elevated LFTs R79.89 (1) Lumbago with sciatica, right side Back pain laterality: right Chronicity: acute Qualified Code(s): M54.41 - Lumbago with sciatica, right side (2) Fall Encounter type: initial encounter Qualified Code(s): W19.XXXA - Unspecified fall, initial encounter (3) Laceration of scalp Encounter type: initial encounter Qualified Code(s): S01.01XA - Laceration without foreign body of scalp, initial encounter
[2023-03-30] MEDS ORDERED: SURGICEL ABSORB HEMOSTAT 2IN X 14IN TOP ONE (13:51)
[2023-03-30] MEDS ORDERED: FLOSEAL HEMOSTATIC MATRIX 10ML TOP ONE (13:52)
[2023-03-30] MEDS ORDERED: SUGAMMADEX SODIUM 200 MG/2 ML VIAL IV ONE (14:07)
--- NOTE | 2023-03-30 14:19 | Operative Report ---
Post Operative Report Pre & Post Diagnosis Operation Date: 03/30/23 07:00 Pre-Op Diagnosis: L3-L4 and severe spinal stenosis. disc herniation with free fragment migrating caudally Morbid obesity Post-Op Diagnosis: same I identified the patient and participated in the time-out.: Yes Procedure Operation Date: 03/30/23 07:00 Actual Procedures #1 lumbar decompression bilateral medial facetectomies and foraminotomies L3- L4. #2 posterior spinal fusion L3-L4. #3 placement posterior instrumentation L3-L4. #4 interbody fusion L3-L4. #5 placement of Spira 15 x 26 mm at L3-L4. #6 placement locally harvested morselized autograft in the posterior gutters. #7 placement of I factor in the body space and infuse collagen sponge, master graft in the posterior lateral gutters. Surgeon Sujit Werner, DO Medical Coding Auditor Gene Hernandez Estimated Blood Loss 200 Findings See Below The patient is 6 feet tall weighing over 156 kg with a BMI in excess of 47. The patient's body habitus did contribute to significant technical difficulty requiring her deepest retractors and longer instruments in order to perform his procedure. This at least 50% increased operative time. Specimens none Description of Procedure Patient was met with identified informed consent obtained. Patient was then taken to the operative suite underwent patient placed in a prone position on the Gunnar table atop the Tony frame. All bony promises well-padded eyes inspected to ensure no external prostate spinal. This point lumbar spine was prepped and draped no sterile fashion. Sharp dissection with assistance of Bovie cautery was performed down to and exposing the lamina transverse processes of L3-L4 and 17 retractors were placed. Then performed a complete laminectomy L3 identifying a massive disc herniation on the right both into the L3-L4 foramen on the right as well as fragments migrating caudally into the L4-5 f oramen on the right. This required extensive decompression and facetectomy to completely and safely address the fragments. Pedicle screws then placed in L3- L4 bilaterally with assistance of fluoroscopy and properly sized katey placed. By way of a trans foraminal approach on the right complete discectomy was performed endplates curetted to subcortically bone and a 15 x 26 mm Spira cage with I fact or tapped in position. The rods were then locked in final position bilaterally. The transverse processes of L3 and L4 burred to subcortical bleeding bone. Infuse collagen sponge bone mass graft locally harvested morselized graft was placed in the posterior gutters. 15 round ALEXIS drain inserted. The incision was closed with 1 Vicryl fascia 2-0 Vicryl subcutaneously and 4 Monocryl for final skin closure. Steri-Strips sterile dressings placed. Patient waken taken PACU stable condition. Please note spinal cord monitoring visualized at the procedure no changes noted. Lastly Gene Hernandez was present at the entire procedure involved in patient positioning complex portions of the surgery and final skin closure. I attest to the content of the Intraoperative Record and any orders documented therein. Any exceptions are noted below.
--- NOTE | 2023-03-30 14:51 | Fluoroscopy Report ---
FL lumbar spine 2-3V CLINICAL HISTORY: L3-L4 DECOMPRESSION AND FUSION TECHNIQUE: 2 views were obtained with the C-arm in the OR with the above procedure. Total fluoroscopy time was 6.5 seconds. Radiation dose was 48.98 mGy. Comparison: None available at the time of this dictation. FINDINGS/IMPRESSION: Intraoperative images were obtained of L3-L4 decompression and fusion. Please correlate with intraoperative fluoroscopy and operative report. ACT 112: Negative or not required by law. Electronically signed by: Kenneth Lanza M.D. 03/30/2023 2:50 PM
--- NOTE | 2023-03-30 15:29 | Anesthesiology Progress Note ---
Date of Service March 30, 2023 Anesthesia Post Procedure Vital Signs Vital Signs: Temp Pulse Pulse Pulse Resp BP BP 03/30/23 15:10 81 12 143/83 H 03/30/23 15:00 84 12 116/81 03/30/23 14:50 82 12 120/76 03/30/23 14:40 36.1 C L 86 23 148/97 H 03/30/23 11:29 36.4 C L 79 22 154/91 H 03/30/23 07:18 36.3 C L 67 18 155/85 H 03/29/23 20:26 36.6 C 82 18 151/92 H Pulse Ox O2 Del Method O2 Flow Rate 03/30/23 15:10 94 Nasal Cannula 3 03/30/23 15:00 92 BiPAP 03/30/23 14:50 95 Oxymask 10 03/30/23 14:40 96 Oxymask 10 03/30/23 11:29 92 Room Air 03/30/23 07:18 95 Room Air 03/29/23 20:26 92 Room Air Pain Intensity Right Thigh: Pain Intensity: 4 Back: Pain Intensity: 6 Transfer of Care Handoff Completed per policy Notes Mental Status: alert / awake / arousable and participated in evaluation Patient Amnestic to Procedure: Yes Nausea / Vomiting: adequately controlled Pain: adequately controlled Airway Patency, RR, SpO2: stable & adequate BP & HR: stable & adequate Hydration State: stable & adequate Anesthetic Complications: no major complications apparent and Pt Satisfied with anesthetic care
[2023-03-30] MEDS ORDERED: SOD PHOSPHATE/SOD BIPHOSPHATE ENEMA 132 ML BTL PR PRN (15:50)
[2023-03-30] MEDS ORDERED: hydrOXYzine HCl 25 MG TAB PO PRN (15:50)
[2023-03-30] MEDS ORDERED: MAGNESIUM HYDROXIDE SUSP 30 ML UDC PO PRN (15:50)
[2023-03-30] MEDS ORDERED: LORazepam 2 MG/1 ML VIAL IV PRN (15:50)
[2023-03-30] MEDS ORDERED: ALUMINUM/MAGNESIUM SUSP 30 ML UDC PO PRN (15:50)
[2023-03-30] MEDS ORDERED: ACETAMINOPHEN 500 MG TAB PO PRN (15:50)
[2023-03-30] MEDS ORDERED: DO NOT ADMINISTER PNEUMOCOCCAL VACCINE PRN (15:50)
[2023-03-30] MEDS ORDERED: ONDANSETRON 4 MG OD TAB PO PRN (15:50)
[2023-03-30] MEDS ORDERED: PROMETHAZINE HCL 12.5 MG in SODIUM CHLORIDE 0.9% 50 ML IV PRN (15:50)
[2023-03-30] MEDS ORDERED: METOCLOPRAMIDE HCL INJ 5 MG/ML 2 ML VIAL IV PRN (15:50)
[2023-03-30] MEDS ORDERED: DO NOT ADMINISTER FLU VACCINE PRN (15:50)
[2023-03-30] MEDS ORDERED: bisacodyL 10 MG SUPP PR PRN (15:50)
[2023-03-30] MEDS ORDERED: traMADol HCL 50 MG TABLET PO PRN (15:50)
[2023-03-30] MEDS ORDERED: LORazepam 0.5 MG TAB PO PRN (15:50)
[2023-03-30] MEDS ORDERED: HYDROmorphone INJ 0.5 MG/0.5 ML SYR IV PRN (15:50)
[2023-03-30] MEDS ORDERED: FAMOTIDINE 20 MG TAB PO PRN (15:50)
[2023-03-30] MEDS ORDERED: PHARMACY GLYCEMIC MGMT CONSULT PRN (15:50)
[2023-03-30] MEDS ORDERED: ACETAMINOPHEN 1,000 MG/100 ML VIAL IV PRN (15:50)
[2023-03-30] MEDS ORDERED: diphenhydrAMINE Capsule 25 MG CAP PO PRN (15:50)
[2023-03-30] MEDS ORDERED: NALOXONE HCL 0.4 MG/1 ML VIAL/CARP IV PRN (15:50)
[2023-03-30] MEDS: oxyCODONE HCL IR 5 MG TAB (IMMEDIATE RELEASE) PO PRN (16:22)
[2023-03-30] MEDS: SODIUM CHLORIDE 0.9% 1000ML 1,000 ML IV SCH (17:14)
[2023-03-30] MEDS ORDERED: LANTUS PER UNIT CHARGE SC ONE (17:30)
[2023-03-30] MEDS ORDERED: COUGH DROP (SUGAR FREE) LOZ 24 LOZ/1 BOX BUCCAL ONE (20:41)
[2023-03-30] MEDS: ceFAZolin 2000MG 2,000 MG/15 ML SYR IV SCH (20:47)
[2023-03-30] MEDS: ATORVASTATIN 20 MG TAB PO SCH (20:49)
[2023-03-30] MEDS: MELATONIN 3 MG TAB PO SCH (20:51)
[2023-03-30] MEDS: HEPARIN SOD 5,000 UNIT/0.5 ML VIAL SQ SCH (20:52)
--- NOTE | 2023-03-30 22:33 | Electrocardiogram Report ---
Test Reason : Blood Pressure : / mmHG Vent. Rate : 083 BPM Atrial Rate : 083 BPM P-R Int : 178 ms QRS Dur : 148 ms QT Int : 418 ms P-R-T Axes : -03 -57 004 degrees QTc Int : 491 ms Normal sinus rhythm Right bundle branch block Left anterior fascicular block Bifascicular block Abnormal ECG When compared with ECG of 04-FEB-2018 06:47, No significant change was found Confirmed by Toy Rosenbaum ([id number]) on 03/30/2023 10:32:42 PM Referred By: REFERRED SELF Confirmed By:Toy Rosenbaum
[2023-03-31] MEDS: INSULIN ASPART PER UNIT CHARGE SC SCH ×6 (00:56→20:48)
[2023-03-31] MEDS: SODIUM CHLORIDE 0.9% 1000ML 1,000 ML IV SCH ×2 (00:56→14:00)
[2023-03-31] MEDS: ceFAZolin 2000MG 2,000 MG/15 ML SYR IV SCH (03:55)
[2023-03-31] MEDS: POLYETHYLENE (MIRALAX) 17 GM PACK PO SCH ×3 (06:12→17:58)
[2023-03-31 06:34] LABS: Basophils # (auto) 0.02 K/uL (0-0.2); Basophils % (auto) 0.1 %; Hematocrit (blood only) 45.7 % (42.0-52.0); Hemoglobin 16.1 g/dl (14.0-18.0); Immature Granulocytes # (auto) 0.12 K/uL (0.01-0.20); Immature Granulocytes % (auto) 0.6 %; Lymphocytes # (auto) 1.07 K/uL (1.2-3.4); Lymphocytes % (auto) 5.7 %; Mean Corpuscular Hemoglobin 35.1 pg (25.0-34.0); Mean Corpuscular Hgb Conc 35.2 g/dL (32.0-36.0); Mean Corpuscular Volume 99.6 fL (80.0-100.0); Mean Platelet Volume 11.9 fL (9.4-12.4); Monocytes % (auto) 9.7 %; Neutrophils # (auto) 15.63 K/uL (1.40-6.50); Neutrophils % (auto) 83.9 %; Platelet Count 170 K/uL (130-400); RDW Coefficient of Variation 12.7 % (11.5-14.5); RDW Standard Deviation 46.5 fL (36.4-46.3); Red Blood Count 4.59 M/uL (4.70-6.10); White Blood Count 18.64 K/ul (4.8-10.8)
[2023-03-31 06:43] LABS: BUN Creatinine Ratio 44.1 (10-20); Calcium 8.5 mg/dl (8.6-10.3); Creatinine Clr Calc Pharmacy 92.8 ml/min; Est GFR (African American) 87.7 ml/min; Est GFR (Non-African American) 75.7 ml/min; Potassium 4.6 mmol/L (3.5-5.1)
[2023-03-31] MEDS: oxyCODONE HCL IR 5 MG TAB (IMMEDIATE RELEASE) PO PRN ×2 (07:36→18:01)
[2023-03-31] MEDS: dexAMETHasone 6 MG in SYRINGE 0 ML IV SCH (08:36)
[2023-03-31] MEDS: HEPARIN SOD 5,000 UNIT/0.5 ML VIAL SQ SCH ×2 (08:39→20:50)
[2023-03-31] MEDS: PREGABALIN 75 MG CAP PO SCH ×2 (08:42→20:48)
[2023-03-31] MEDS: METOPROLOL TARTRATE 25 MG TAB PO SCH (08:44)
[2023-03-31] MEDS: gemfibroziL 600 MG TAB PO SCH ×2 (08:45→20:49)
[2023-03-31] MEDS: VENLAFAXINE HCL XR 150 MG CAPXR PO SCH (08:45)
[2023-03-31] MEDS: TAMSULOSIN HCL 0.4 MG CAP PO SCH (08:45)
[2023-03-31] MEDS: FINASTERIDE 5 MG TAB PO SCH (08:46)
[2023-03-31] MEDS: CHOLECALCIFEROL 400 UNITS 10 MCG TAB PO SCH (08:46)
[2023-03-31] MEDS: MULTIVITAMIN TAB PO SCH (08:47)
[2023-03-31] MEDS ORDERED: LANTUS PER UNIT CHARGE SC ONE (09:30)
[2023-03-31] MEDS: BACITRACIN OINT 0.9 GM PKT EXT SCH (10:52)
[2023-03-31] MEDS: BACITRACIN OINT 15 GM TUBE EXT SCH (11:33)
--- NOTE | 2023-03-31 11:45 | Orthopedic Progress Note ---
Date of Service March 31, 2023 Assessment & Plan (1) Lumbar disc herniation with radiculopathy: Plan: This time we will continue physical therapy and Occupational Therapy and assessing for rehab in the next few days. Admission and Anticipated Discharge Date Admission Date: March 27, 2023 Subjective Back pain controlled right leg symptoms markedly improved Physical Exam Physical Exam: Patient is in the chair at the bedside. He is comfortable. Is good strength testing. Results & Data Vital Signs (Past 12 Hours) Vital Signs Temp Pulse Pulse Resp BP Pulse Ox O2 Del Method 03/31/23 07:45 Room Air 03/31/23 07:10 36.5 C 75 18 134/83 93 Room Air 03/31/23 04:00 36.5 C 75 18 135/85 92 Room Air
[2023-03-31] MEDS ORDERED: LACTATED RINGER'S 500 ML IV ONE ×3 (12:24→15:20)
--- NOTE | 2023-03-31 13:11 | Pharmacy Report ---
Pharmacy Glycemic Short Note 2 - Date of Service March 31, 2023 - Glycemic Short BSG Results (Last 24 hours): 03/30/23 03/30/23 03/31/23 17:01 21:42 00:08 Glucose POC Glucose 247 H 221 H 169 H 03/31/23 03/31/23 03/31/23 03:52 05:40 07:58 Glucose 133 H POC Glucose 131 H 145 H 03/31/23 12:04 Glucose POC Glucose 207 H OUTPATIENT ANTIDIABETIC REGIMEN: * Metformin 500mg PO BID * HbA1c: 6.6% (03/27/23) ASSESSMENT: * Mr Medrano is an 82yo diabetic M, POD #1 s/p spinal procedure with Dr Werner yesterday. * Pt received pre-operative IV dexamethasone, and is ordered daily IV DXM for several days post-op. This is expected to lead to steroid-induced hyperglycemia. * Pt was initiated on SQ basal/bolus insulin regimen on admission. So far, BSGs have been below 250mg/dL. Will attempt to achieve tighter glycemic control in the post-op setting, to promote wound healing and discourage infection. * Will continue to follow and adjust regimen as indicated. PLAN FOR INPATIENT GLYCEMIC CONTROL: * Hold outpatient oral diabetes medications * Basal insulin * Lantus 20 units SQ daily * Bolus insulin * NovoLog per scale ACHS or Q6hrs while NPO * Goal Range: Low 110 mg/dL - High 140 mg/dL * Correction Factor: 15 mg/dL/unit * Nutritional / Prandial insulin per carb ratio of 1 unit per 5 grams CHO consumed
--- NOTE | 2023-03-31 13:47 | Hospitalist Progress Note ---
Date of Service March 31, 2023 Assessment & Plan (1) Hypotension: Plan: s/p 3 separate 500cc LR boluses today with fair response to such followed by LR maintenance fluids BUN today on labs high and urine is very concentrated - c/w volume depletion H/H today stable from yesterday and ALEXIS drain from back with minimal output thus hypotension unlikely from blood loss has been receiving dexamethasone since early in admission for back pain/radicular pain thus addisonian hypotension unlikely with that said I did elect to give him an additional dose of IV dexamethasone today lactate this evening wnl procal negative early sepsis causing the hypotension unlikely - defer on empiric antibiotics no evidence of cardiogenic issues doubt obstructive shock from massive or submassive PE - no clinical evidence of such HOLD metoprolol HOLD HCTZ cont to monitor UOP carefully along with BPs night resident physician made aware of today's events (2) Lumbar disc herniation with radiculopathy: Plan: POD #1 s/p L3-L4 decompression-fusion procedure by Dr Werner appreciate his assistance H/H stable today on labs ALEXIS drain - minimal output pain controlled bowel regimen (3) 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 (7) Morbid obesity with BMI of 45.0-49.9, adult: Plan: BMI 46 (8) Laceration of scalp: Plan: s/p staple repair in the ER remove janet 7-10 days out from repair (repair date was 03/23/23) (9) BPH (benign prostatic hyperplasia): Plan: watch for post-op urinary retention thus far none cont daily flomax only if BPs remain stable (10) Hemochromatosis: Plan: uncertain where he is followed for such H/H rather high despite his hemochromatosis diagnosis check Fe studies in am (11) Obesity hypoventilation syndrome: Plan: noted (12) Hypertension: Plan: now with #1 stop HCTZ hold flomax stop metoprolol treat #1 (13) Gout: Plan: no flare at this time if he has frequent flares as outpatient HCTZ should be stopped as this causes uric acid elevations (14) Diabetes mellitus type 2, controlled: Plan: appreciate pharmacy glycemic assistance a1c <7% BSGs here even in face of steroid use are reasonable Plan DVT proph - heparin SC 5000 BID as ordered by Dr Werner cont PT/OT Admission and Anticipated Discharge Date Admission Date: March 27, 2023 Subjective patient reports that he worked with therapy this am during his session he was NOT dizzy or lightheaded he then sat in the chair for most of the morning while sitting in chair his BPs were low I was informed by nursing of the low BPs he was placed back in bed BPs were modestly better once supine in bed with systolics in the 90s I gave 2 LR boluses - each 500cc - for the hypotension despite the low BPs he has voided several times this am patient reports his back pain is mild today leg pain is improved denies abd pain is passing flatus, and had a stool yesterday eating well admits he has not been drinking fluids that well Review of Systems Review of Systems: gen - no fevers cv - no chest pain, no orthopnea pulm - no dyspnea, no cough GI - no nausea or emesis Physical Exam Physical Exam: gen - morbidly obese, NAD, lying flat in bed comfortably mouth - MM slightly dry neck - no JVD heart - RRR, s1 s2 lungs - CTA b/l abd - soft NT ND BS+; ALEXIS drain from back with mild amount of serosanguinous fluid only ext - no edema, pulses 2+ b/l neuro - strength right hip flexion 4/5; left hip flexion 5/5; ankle dorsiflexion/plantarflexion 5/5 psych - a/o x 3 Results & Data Results & Data Vital Signs (Past 12 Hours) Vital Signs Temp Pulse Pulse Pulse Resp BP BP 03/31/23 13:00 85/53 L 85/60 L 03/31/23 12:09 87/61 L 03/31/23 11:50 36.4 C L 88 18 91/65 L 03/31/23 07:45 03/31/23 07:10 36.5 C 75 18 134/83 03/31/23 04:00 36.5 C 75 18 135/85 Pulse Ox O2 Del Method 03/31/23 13:00 03/31/23 12:09 03/31/23 11:50 94 Room Air 03/31/23 07:45 Room Air 03/31/23 07:10 93 Room Air 03/31/23 04:00 92 Room Air Laboratory Results Laboratory Results - last 24 hr 03/30/23 03/30/23 03/31/23 17:01 21:42 00:08 WBC RBC Hgb Hct MCV MCH MCHC RDW Std Deviation RDW Coeff of Jessica Plt Count MPV Immature Gran % (Auto) Neut % (Auto) Lymph % (Auto) Callahan % (Auto) Eos % (Auto) Baso % (Auto) Neut # (Auto) Lymph # (Auto) Callahan # (Auto) Eos # (Auto) Baso # (Auto) Immature Gran # (Auto) Sodium Potassium Chloride Carbon Dioxide Anion Gap BUN Creatinine Est Cr Clr Drug Dosing Est GFR ( Amer) Est GFR (Non-Af Amer) BUN/Creatinine Ratio Glucose POC Glucose 247 H 221 H 169 H Calcium 03/31/23 03/31/23 03/31/23 03:52 05:40 05:40 WBC 18.64 H RBC 4.59 L Hgb 16.1 Hct 45.7 MCV 99.6 MCH 35.1 H MCHC 35.2 RDW Std Deviation 46.5 H RDW Coeff of Jessica 12.7 Plt Count 170 MPV 11.9 Immature Gran % (Auto) 0.6 Neut % (Auto) 83.9 Lymph % (Auto) 5.7 Callahan % (Auto) 9.7 Eos % (Auto) 0.0 Baso % (Auto) 0.1 Neut # (Auto) 15.63 H Lymph # (Auto) 1.07 L Callahan # (Auto) 1.80 H Eos # (Auto) 0.00 Baso # (Auto) 0.02 Immature Gran # (Auto) 0.12 Sodium 135 L Potassium 4.6 Chloride 101 Carbon Dioxide 28 Anion Gap 6 BUN 41 H Creatinine 0.93 Est Cr Clr Drug Dosing 92.8 Est GFR ( Amer) 87.7 Est GFR (Non-Af Amer) 75.7 BUN/Creatinine Ratio 44.1 H Glucose 133 H POC Glucose 131 H Calcium 8.5 L 03/31/23 03/31/23 07:58 12:04 WBC RBC Hgb Hct MCV MCH MCHC RDW Std Deviation RDW Coeff of Jessica Plt Count MPV Immature Gran % (Auto) Neut % (Auto) Lymph % (Auto) Callahan % (Auto) Eos % (Auto) Baso % (Auto) Neut # (Auto) Lymph # (Auto) Callahan # (Auto) Eos # (Auto) Baso # (Auto) Immature Gran # (Auto) Sodium Potassium Chloride Carbon Dioxide Anion Gap BUN Creatinine Est Cr Clr Drug Dosing Est GFR ( Amer) Est GFR (Non-Af Amer) BUN/Creatinine Ratio Glucose POC Glucose 145 H 207 H Calcium PG Care Time/CCT Total # of Minutes Spent Total Time Spent with Patient: Total time spent is greater than 50% in coordination of care (as documented) at patient's floor/unit and/or counseling patient: Coding Level of Care Code 93139 SUB INP/OBS CARE 3/50MIN Diagnoses Hypotension I95.9 Lumbar disc herniation with radiculopathy M51.16 Subdural hematoma S06.5XAA Thrombocytopenia D69.6 DVT (deep venous thrombosis) I82.409 Chronic respiratory failure with hypoxia, on home oxygen therapy J96.11; Z99.81 Morbid obesity with BMI of 45.0-49.9, adult E66.01; Z68.42 Laceration of scalp S01.01XA Encounter type: initial encounter BPH (benign prostatic hyperplasia) N40.0 Hemochromatosis E83.119 Obesity hypoventilation syndrome E66.2 Hypertension I10 Gout M10.9 Diabetes mellitus type 2, controlled E11.9 (8) Laceration of scalp Encounter type: initial encounter Qualified Code(s): S01.01XA - Laceration without foreign body of scalp, initial encounter
[2023-03-31] MEDS ORDERED: DEXAMETHASONE SOD INJ 4 MG/ML VIAL IV STA (15:20)
[2023-03-31] MEDS ORDERED: dexAMETHasone 6 MG in SYRINGE 0 ML IV ONE (15:30)
[2023-03-31 19:19] LABS: Basophils # (auto) 0.02 K/uL (0-0.2); Basophils % (auto) 0.1 %; Hematocrit (blood only) 41.3 % (42.0-52.0); Hemoglobin 14.5 g/dl (14.0-18.0); Immature Granulocytes # (auto) 0.09 K/uL (0.01-0.20); Immature Granulocytes % (auto) 0.6 %; Lymphocytes # (auto) 0.46 K/uL (1.2-3.4); Lymphocytes % (auto) 3.2 %; Mean Corpuscular Hemoglobin 35.5 pg (25.0-34.0); Mean Corpuscular Hgb Conc 35.1 g/dL (32.0-36.0); Mean Platelet Volume 11.9 fL (9.4-12.4); Monocytes # (auto) 1.07 K/uL (0.11-0.59); Monocytes % (auto) 7.5 %; Neutrophils # (auto) 12.69 K/uL (1.40-6.50); Neutrophils % (auto) 88.6 %; Platelet Count 119 K/uL (130-400); RDW Coefficient of Variation 12.8 % (11.5-14.5); RDW Standard Deviation 47.9 fL (36.4-46.3); Red Blood Count 4.09 M/uL (4.70-6.10); White Blood Count 14.33 K/ul (4.8-10.8)
[2023-03-31 19:36] LABS: BUN Creatinine Ratio 36.6 (10-20); Calcium 7.8 mg/dl (8.6-10.3); Creatinine Clr Calc Pharmacy 65.9 ml/min; Est GFR (African American) 57.9 ml/min; Potassium 4.4 mmol/L (3.5-5.1)
[2023-03-31] MEDS: DOCUSATE SODIUM/SENNA 50/8.6MG TAB PO SCH (20:48)
[2023-03-31] MEDS: ATORVASTATIN 20 MG TAB PO SCH (20:49)
[2023-03-31] MEDS: MELATONIN 3 MG TAB PO SCH (20:50)
[2023-04-01] MEDS: SODIUM CHLORIDE 0.9% 1000ML 1,000 ML IV SCH ×3 (00:15→20:00)
[2023-04-01] MEDS: POLYETHYLENE (MIRALAX) 17 GM PACK PO SCH ×5 (00:15→22:49)
[2023-04-01 06:10] LABS: Basophils # (auto) 0.02 K/uL (0-0.2); Basophils % (auto) 0.1 %; Hematocrit (blood only) 42.8 % (42.0-52.0); Hemoglobin 14.7 g/dl (14.0-18.0); Immature Granulocytes % (auto) 0.7 %; Lymphocytes % (auto) 8.7 %; Mean Corpuscular Hemoglobin 35.1 pg (25.0-34.0); Mean Corpuscular Hgb Conc 34.3 g/dL (32.0-36.0); Mean Corpuscular Volume 102.1 fL (80.0-100.0); Mean Platelet Volume 11.9 fL (9.4-12.4); Monocytes # (auto) 1.32 K/uL (0.11-0.59); Monocytes % (auto) 9.6 %; Neutrophils # (auto) 11.11 K/uL (1.40-6.50); Neutrophils % (auto) 80.9 %; Platelet Count 131 K/uL (130-400); RDW Coefficient of Variation 12.8 % (11.5-14.5); RDW Standard Deviation 47.9 fL (36.4-46.3); Red Blood Count 4.19 M/uL (4.70-6.10); White Blood Count 13.75 K/ul (4.8-10.8)
[2023-04-01 06:27] LABS: Calcium 8.1 mg/dl (8.6-10.3); Creatinine Clr Calc Pharmacy 105.2 ml/min; Est GFR (African American) 94.8 ml/min; Est GFR (Non-African American) 81.8 ml/min; Potassium 4.4 mmol/L (3.5-5.1)
[2023-04-01 06:44] LABS: Ferritin 643.9 ng/ml (8-388)
[2023-04-01] MEDS: oxyCODONE HCL IR 5 MG TAB (IMMEDIATE RELEASE) PO PRN ×3 (08:12→20:09)
[2023-04-01] MEDS: INSULIN ASPART PER UNIT CHARGE SC SCH ×4 (08:41→22:46)
[2023-04-01] MEDS: PREGABALIN 75 MG CAP PO SCH ×2 (08:50→20:14)
[2023-04-01] MEDS: dexAMETHasone 6 MG in SYRINGE 0 ML IV SCH (08:51)
[2023-04-01] MEDS: HEPARIN SOD 5,000 UNIT/0.5 ML VIAL SQ SCH ×2 (08:52→20:09)
[2023-04-01] MEDS: VENLAFAXINE HCL XR 150 MG CAPXR PO SCH (08:55)
[2023-04-01] MEDS: FINASTERIDE 5 MG TAB PO SCH (08:55)
[2023-04-01] MEDS: BACITRACIN OINT 15 GM TUBE EXT SCH (08:55)
[2023-04-01] MEDS: CHOLECALCIFEROL 400 UNITS 10 MCG TAB PO SCH (08:55)
[2023-04-01] MEDS: gemfibroziL 600 MG TAB PO SCH ×2 (08:55→20:10)
[2023-04-01] MEDS: MULTIVITAMIN TAB PO SCH (08:56)
[2023-04-01] MEDS: LANTUS PER UNIT CHARGE SC SCH (09:07)
--- NOTE | 2023-04-01 10:55 | Orthopedic Progress Note ---
Date of Service April 01, 2023 Assessment & Plan (1) Lumbar disc herniation with radiculopathy: Plan: At this time we will continue physical therapy discontinue his drain today. He is planned to return home with home health. Admission and Anticipated Discharge Date Admission Date: March 27, 2023 Subjective Back pain controlled leg pain markedly improved Physical Exam Physical Exam: Patient is in the chair at the bedside. Is good strength testing. Appears comfortable. Results & Data Vital Signs (Past 12 Hours) Vital Signs Temp Pulse Resp BP Pulse Ox O2 Del Method 04/01/23 08:21 Room Air 04/01/23 07:47 36.5 C 79 16 128/78 93 Room Air
[2023-04-01] MEDS: ATORVASTATIN 20 MG TAB PO SCH (20:10)
[2023-04-01] MEDS: DOCUSATE SODIUM/SENNA 50/8.6MG TAB PO SCH (20:10)
[2023-04-01] MEDS: MELATONIN 3 MG TAB PO SCH (20:11)
--- NOTE | 2023-04-01 21:43 | Hospitalist Progress Note ---
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 (7) Morbid obesity with BMI of 45.0-49.9, adult: Plan: BMI 46 (8) Laceration of scalp: Plan: s/p staple repair in the ER repair date was 03/23/23 take janet out tomorrow lac well-healed on exam today (9) BPH (benign prostatic hyperplasia): Plan: watch for post-op urinary retention thus far none resume flomax (10) Hemochromatosis: Plan: uncertain where he is followed for such H/H rather high despite his hemochromatosis diagnosis Fe studies relatively acceptable (transferrin sat acceptable; ferritin is high but likely acute phase reactant in setting of surgery) (11) Obesity hypoventilation syndrome: Plan: noted (12) Hypertension: Plan: now with #1 stop HCTZ stop metoprolol try to resume flomax (13) Gout: Plan: no flare at this time if he has frequent flares as outpatient HCTZ should be stopped as this causes uric acid elevations (14) Diabetes mellitus type 2, controlled: Plan: appreciate pharmacy glycemic assistance a1c <7% BSGs here even in face of steroid use are reasonable Plan DVT proph - heparin SC 5000 BID as ordered by Dr Werner cont PT/OT home tomorrow? Admission and Anticipated Discharge Date Admission Date: March 27, 2023 Subjective patient feeling very well no complaints leg pains resolved back pain largely controlled no dyspnea or CANALES worked with PT and walked in hallway without any limitation no abd pain moving bowels no dizziness or lightheadedness eating well Review of Systems Review of Systems: cv - no chest pain or orthopnea pulm - no cough/dyspnea GI - no pain/nausea/emesis Physical Exam Physical Exam: gen - morbidly obese, NAD, looks good mouth - MMM today neck - no JVD heart - RRR, s1 s2, no murmur lungs - CTA b/l abd - soft NT ND BS+ musculo - back - dressings in place lumbar spine region ext - no edema, pulses 2+ b/l psych - a/o x 3 skin - scalp laceration right side clean, dry, well-healed; janet intact Results & Data Results & Data Vital Signs (Past 12 Hours) Vital Signs Temp Pulse Resp BP Pulse Ox O2 Del Method 04/01/23 20:27 36.4 C L 80 18 106/69 94 BiPAP 04/01/23 20:00 Room Air, CPAP 04/01/23 15:05 36.5 C 88 16 122/68 93 Room Air Laboratory Results Laboratory Results - last 24 hr 04/01/23 04/01/23 04/01/23 05:46 05:46 08:01 WBC 13.75 H RBC 4.19 L Hgb 14.7 Hct 42.8 MCV 102.1 H MCH 35.1 H MCHC 34.3 RDW Std Deviation 47.9 H RDW Coeff of Jessica 12.8 Plt Count 131 MPV 11.9 Immature Gran % (Auto) 0.7 Neut % (Auto) 80.9 Lymph % (Auto) 8.7 Gibson % (Auto) 9.6 Eos % (Auto) 0.0 Baso % (Auto) 0.1 Neut # (Auto) 11.11 H Lymph # (Auto) 1.20 Gibson # (Auto) 1.32 H Eos # (Auto) 0.00 Baso # (Auto) 0.02 Immature Gran # (Auto) 0.10 Sodium 135 L Potassium 4.4 Chloride 102 Carbon Dioxide 29 Anion Gap 4 BUN 41 H Creatinine 0.82 D Est Cr Clr Drug Dosing 105.2 Est GFR ( Amer) 94.8 Est GFR (Non-Af Amer) 81.8 BUN/Creatinine Ratio 50.0 H Glucose 141 H POC Glucose 126 H Calcium 8.1 L Iron 74 TIBC 266 Unsaturated IBC 192 Transferrin % Sat 28 Ferritin 643.9 H 04/01/23 04/01/23 04/01/23 11:48 17:09 20:26 WBC RBC Hgb Hct MCV MCH MCHC RDW Std Deviation RDW Coeff of Jessica Plt Count MPV Immature Gran % (Auto) Neut % (Auto) Lymph % (Auto) Gibson % (Auto) Eos % (Auto) Baso % (Auto) Neut # (Auto) Lymph # (Auto) Gibson # (Auto) Eos # (Auto) Baso # (Auto) Immature Gran # (Auto) Sodium Potassium Chloride Carbon Dioxide Anion Gap BUN Creatinine Est Cr Clr Drug Dosing Est GFR ( Amer) Est GFR (Non-Af Amer) BUN/Creatinine Ratio Glucose POC Glucose 158 H 175 H 72 Calcium Iron TIBC Unsaturated IBC Transferrin % Sat Ferritin PG Care Time/CCT Total # of Minutes Spent Total Time Spent with Patient: Total time spent is greater than 50% in coordination of care (as documented) at patient's floor/unit and/or counseling patient: Coding Level of Care Code 44222 SUB INP/OBS CARE 2/35MIN Diagnoses Hypotension I95.9 Lumbar disc herniation with radiculopathy M51.16 Subdural hematoma S06.5XAA Thrombocytopenia D69.6 DVT (deep venous thrombosis) I82.409 Chronic respiratory failure with hypoxia, on home oxygen therapy J96.11; Z99.81 Morbid obesity with BMI of 45.0-49.9, adult E66.01; Z68.42 Laceration of scalp S01.01XA Encounter type: initial encounter BPH (benign prostatic hyperplasia) N40.0 Hemochromatosis E83.119 Obesity hypoventilation syndrome E66.2 Hypertension I10 Gout M10.9 Diabetes mellitus type 2, controlled E11.9 (8) Laceration of scalp Encounter type: initial encounter Qualified Code(s): S01.01XA - Laceration without foreign body of scalp, initial encounter
[2023-04-02] MEDS: POLYETHYLENE (MIRALAX) 17 GM PACK PO SCH (05:21)
[2023-04-02 06:01] LABS: Basophils # (auto) 0.03 K/uL (0-0.2); Basophils % (auto) 0.2 %; Eosinophils # (auto) 0.03 K/uL (0-0.50); Eosinophils % (auto) 0.2 %; Hematocrit (blood only) 43.9 % (42.0-52.0); Hemoglobin 15.1 g/dl (14.0-18.0); Immature Granulocytes # (auto) 0.16 K/uL (0.01-0.20); Lymphocytes # (auto) 1.88 K/uL (1.2-3.4); Lymphocytes % (auto) 11.6 %; Mean Corpuscular Hemoglobin 35.3 pg (25.0-34.0); Mean Corpuscular Hgb Conc 34.4 g/dL (32.0-36.0); Mean Corpuscular Volume 102.6 fL (80.0-100.0); Mean Platelet Volume 11.7 fL (9.4-12.4); Monocytes # (auto) 1.38 K/uL (0.11-0.59); Monocytes % (auto) 8.5 %; Neutrophils # (auto) 12.69 K/uL (1.40-6.50); Neutrophils % (auto) 78.5 %; Platelet Count 149 K/uL (130-400); Red Blood Count 4.28 M/uL (4.70-6.10); White Blood Count 16.17 K/ul (4.8-10.8)
[2023-04-02 06:13] LABS: BUN Creatinine Ratio 48.7 (10-20); Calcium 8.5 mg/dl (8.6-10.3); Creatinine Clr Calc Pharmacy 110.6 ml/min; Est GFR (African American) 96.7 ml/min; Est GFR (Non-African American) 83.5 ml/min; Potassium 4.6 mmol/L (3.5-5.1)
[2023-04-02] MEDS: VENLAFAXINE HCL XR 150 MG CAPXR PO SCH (09:01)
[2023-04-02] MEDS: gemfibroziL 600 MG TAB PO SCH (09:01)
[2023-04-02] MEDS: CHOLECALCIFEROL 400 UNITS 10 MCG TAB PO SCH (09:02)
[2023-04-02] MEDS: MULTIVITAMIN TAB PO SCH (09:02)
[2023-04-02] MEDS: FINASTERIDE 5 MG TAB PO SCH (09:02)
[2023-04-02] MEDS: HEPARIN SOD 5,000 UNIT/0.5 ML VIAL SQ SCH (09:03)
[2023-04-02] MEDS: dexAMETHasone 6 MG in SYRINGE 0 ML IV SCH (09:03)
[2023-04-02] MEDS: INSULIN ASPART PER UNIT CHARGE SC SCH ×3 (09:04→17:47)
[2023-04-02] MEDS: PREGABALIN 75 MG CAP PO SCH (09:08)
[2023-04-02] MEDS: LANTUS PER UNIT CHARGE SC SCH (09:09)
[2023-04-02] MEDS: BACITRACIN OINT 15 GM TUBE EXT SCH (09:09)
[2023-04-02] MEDS ORDERED: TAMSULOSIN HCL 0.4 MG CAP PO ONE (09:49)
--- NOTE | 2023-04-02 14:50 | Pharmacy Report ---
Pharmacy Glycemic Short Note 2 - Date of Service April 02, 2023 - Glycemic Short BSG Results (Last 24 hours): 04/01/23 04/01/23 04/02/23 17:09 20:26 05:35 Glucose 86 POC Glucose 175 H 72 04/02/23 04/02/23 07:57 12:04 Glucose POC Glucose 87 175 H OUTPATIENT ANTIDIABETIC REGIMEN: * Metformin 500mg PO BID * HbA1c: 6.6% (03/27/23) ASSESSMENT: 04/02: * Patient received 64 units of insulin yesterday- 20 units of basal, 44 units of prandial/correctional * Last dose of dexamethasone today, lantus order discontinued after this morning's dose. Reassess basal need tomorrow * Novolog parameters may also need adjusted at that time. 03/31/23 * Mr Medrano is an 82yo diabetic M, POD #1 s/p spinal procedure with Dr Werner yesterday. * Pt received pre-operative IV dexamethasone, and is ordered daily IV DXM for several days post-op. This is expected to lead to steroid-induced hyperglycemia. * Pt was initiated on SQ basal/bolus insulin regimen on admission. So far, BSGs have been below 250mg/dL. Will attempt to achieve tighter glycemic control in the post-op setting, to promote wound healing and discourage infection. * Will continue to follow and adjust regimen as indicated. PLAN FOR INPATIENT GLYCEMIC CONTROL: * Hold outpatient oral diabetes medications * Basal insulin * Lantus 20 units SQ daily- last dose today * Bolus insulin * NovoLog per scale ACHS or Q6hrs while NPO * Goal Range: Low 110 mg/dL - High 140 mg/dL * Correction Factor: 20 mg/dL/unit * Nutritional / Prandial insulin per carb ratio of 1 unit per 4 grams CHO co nsumed
[2023-04-02] MEDS ORDERED: ENOXAPARIN 80 MG/0.8 ML SYR SQ ONE (16:00)
[2023-04-02] MEDS ORDERED: APIXABAN 2.5 MG TAB PO STA (16:02)
--- NOTE | 2023-04-02 18:18 | Discharge Summary ---
Date of Service April 02, 2023 Admission HPI Per Admitting Provider Attending: Dr. Dobson This is an 82-year-old male that presents for severe back pain with radiculopathy down the right lower extremity. Patient has a past medical history including neuropathy, BPH, hemochromatosis, depression with anxiety, history of DVT following hip fracture, chronic respiratory failure with hypoxia, obesity hypoventilation syndrome on BiPAP, paralysis of the right hemidiaphragm, osteoarthritis, hypertension, dyslipidemia, gout, hypercapnia, morbid obesity with a BMI of 45 kg/m. Patient presented to the hospital yesterday for a fall. He was found to have a significant laceration of the scalp. He received janet for closure. Patient also had a right shoulder contusion. He denies any pain in his lower extremities at that time. Overnight, the patient started to develop low back pain and severe pain along the L4 dermatome extending across his lateral thigh crossing over the quadriceps and down into the medial quadricep region. Patient reports that he had difficulty standing or walking last evening secondary to the pain. Patient has no evidence of hip fracture. He has no hematoma or contusion along the right hip. Patient does report a long history of back problems and back pain. Laboratory evaluation does not indicate any significant reason for weakness. Neurological examination shows no pain with straight leg raise. Strength is fairly appropriately with both lower extremities but patient does experience significant pain to that area of the thigh with active range of motion. Patient denies any fever, chills, sweats, rigors. No recent infection. No dif ficulty with urination. No hematuria. No cough or significant sputum production. No indication of acute illness to explain weakness. Patient lives with his son. Discharge Exam gen - morbidly obese, NAD, looks good mouth - MMM today neck - no JVD heart - RRR, s1 s2, no murmur lungs - CTA b/l abd - soft NT ND BS+ musculo - back - dressings in place lumbar spine region ext - no edema, pulses 2+ b/l psych - a/o x 3 skin - scalp laceration right side clean, dry, well-healed; janet intact Discharge Data Allergies Allergy/AdvReac Type Severity Reaction Status Date / Time No Known Allergies Allergy Unverified 03/26/23 10:15 Consultations 03/26/23 07:13 ED Decision to Admit Stat 03/26/23 10:04 Consult Orthopedic Surgery Stat Consult Pain Management Stat Procedures Performed Operation Date: 03/30/23 07:00 Actual Procedures p L3-L4 Decompression and Fusion(Not Applicable) - Sujit Werner, Ordered Studies 03/26/23 03:54 CT lumbar spine wo con Stat 03/26/23 07:[address] [CT head/brain wo con] Stat 03/27/23 11:49 MR lumbar spine wo con Urgent 03/29/23 12:47 CT head/brain wo con Routine 03/30/23 [place] lumbar spine 2-3V Routine Hospital Course (1) Hypotension: post-op hypotension -- 2nd to intra-vascular volume depletion resolved stop IV fluids wean steroids off there has been no evidence of septic shock, cardiogenic shock, or obstructive shock from massive or submassive PE cont to HOLD metoprolol cont to HOLD HCTZ (2) Lumbar disc herniation with radiculopathy: POD #2 s/p L3-L4 decompression-fusion procedure by Dr Werner appreciate his assistance H/H again stable today ALEXIS drain - minimal output - was d/c by Dr Werner today pain controlled bowel regimen (3) Subdural hematoma: as seen on admission CT head appears chronic no evidence of acute ICH (4) Thrombocytopenia: chronic etiology? will cont to trend daily to be complete will check TSH/B12/folate (5) DVT (deep venous thrombosis): h/o post-op related Dr Werner aware of prior VTE event with a past surgery to that end Dr Werner ordered heparin SC 5000 BID for DVT proph at discharge - xarelto or eliquis for DVT proph x 4-6 weeks? 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 (7) Morbid obesity with BMI of 45.0-49.9, adult: BMI 46 (8) Laceration of scalp: s/p staple repair in the ER repair date was 03/23/23 take janet out tomorrow lac well-healed on exam today (9) BPH (benign prostatic hyperplasia): watch for post-op urinary retention thus far none resume flomax (10) Hemochromatosis: uncertain where he is followed for such H/H rather high despite his hemochromatosis diagnosis Fe studies relatively acceptable (transferrin sat acceptable; ferritin is high but likely acute phase reactant in setting of surgery) (11) Obesity hypoventilation syndrome: noted (12) Hypertension: now with #1 stop HCTZ stop metoprolol try to resume flomax (13) Gout: no flare at this time if he has frequent flares as outpatient HCTZ should be stopped as this causes uric acid elevations (14) Diabetes mellitus type 2, controlled: appreciate pharmacy glycemic assistance a1c <7% BSGs here even in face of steroid use are reasonable Plan DVT proph - heparin SC 5000 BID as ordered by Dr Werner cont PT/OT home tomorrow? Home Health Attestation I certify that this patient is under my care and that I, or a physicians assist ant working with me, had a face to-face encounter that meets the home health qmwe-uv-kszv encounter requirements with this patient. The encounter with the patient was in whole, or in part, for the following medical condition, which is the primary reason for home health care (list medical condition): severe spinal stenosis s/p spine surgery on 03/30 I certify that, based on my findings, the following services are medically necessary home health services: My clinical findings support the need for the above services because: Home Safety Assessment OT Assess ADL Status and Restore Function w ADLs PT Assessment for Endurance / Balance / Strength PT Eval for Safety and Mobility PT Eval for Safety, Gait Training, Assistive Devices PT Gait and Balance Training, Strengthening and Safety Further, I certify that my clinical findings support that this patient is homebound (i.e. absences from home require considerable and taxing effort and are for medical reasons or baptist services or infrequently or of short duration when for other reasons) because: Supportive Aid - Walker Transportation Assistance/Unable to Leave Home Unassisted Certification for Home Health Services: Based on the above findings, I certify that this patient is confined to the home and needs intermittent longterm care, physical therapy and/or speech therapy or continues to need occupational therapy. The patient is under my care, and I have initiated the establishment of the plan of care. This patient will be followed by a physician who will periodically review the plan of care. Discharge Plan Discharge Items Patient Disposition: Home - Home Health Services Reason For Visit: RIGHT LEG PAIN Discharge Diagnosis: 1. Severe L3-L4 lumbar disk herniation with decompression/fusion surgery by Dr Rey Werner 2. Post-operative hypotension (low blood pressure) - resolved 3. Type 2 diabetes 4. history of right leg DVT in 2018 following hip surgery 5. small, old, chronic appearing subdural hematoma of brain (a previous fall led to small amount of bleeding underneath the skull) 6. scalp laceration with repair on 03/23/23; janet removed Activity: As commented below Non-emergency contact: Primary Care Provider and Surgeon Call non-emergency contact if: you have any medication questions, your pain is not controlled, your pain is worsening, your pain is unusual for you, you have a fever, your wound has increased redness, your wound has increased drainage and your wound pain has increased Follow-up/Referrals: Fortino Bravo CRNP [Primary Care Provider] - 04/14/23 10:20 am Sujti Werner DO [Surgeon] - (10-[address] Werner or his physician assistant football coach; his office will be contacting you early this coming week to arrange follow-up ) Diet: Carb Consistent or DM2 Addtl Attending Provider Instructions: ACTIVITY RECOMMENDATIONS following your back surgery: SELF CARE INSTRUCTIONS AFTER THORACIC/LUMBAR FUSIONS 1. You may walk to your tolerance. It is good exercise for your legs and back. Expect some back and intermittent leg aches and pains. 2. You may perform "counter-top" level activities (make a sandwich, moni with a project, etc.). 3. No bending or lifting of more than 10 pounds or back twisting of any nature (roll like a log when turning in bed). 4. You may ride in a car for 20-30 minutes at a time. No driving until after your first visit with your doctor. 5. Frequent changes of position and restricting sitting to 30 minutes at a time will help limit the amount of back spasms and stiffness you may experience. 6. You may discontinue the use of ambulatory aids (cane, crutches, etc.) once your strength and confidence allow. 7. You may interviewing clerk the shower and let water strike your incision when you arrive home at least once daily. Do not take a tub bath, sit in a hot tub or go into a swimming pool until after your first recheck in the office. SPECIAL CARE INSTRUCTIONS: VERY IMPORTANT TO READ AND REVIEW A. Your surgical incision has been closed with a cosmetic suture under the skin that will dissolve in about 6 weeks. In 14 days, you can use a pair of clean scissors and cut the suture that is left outside of the skin at the ends of your incision. 1. The small skin tapes can be removed 7 days after surgery if they have not fallen off by that point. 2. You may keep the wound open to air as much as possible to promote healing after post-op day number 5 unless told otherwise by your doctor. 3. If you think the wound looks like it is becoming infected (redness or worsening drainage) and/or you are experiencing fever, chill or worsening back pain and muscle spasms, contact the office so that we may evaluate you as soon as possible. B. Complications are uncommon, but please contact us if you have any signs or symptoms of: 1. wound infection (fever higher than 102.5 degrees F, redness, separation of wound, drainage, or increasing pain from the incision) 2. blood clots in legs (pain, swelling, redness and warmth in legs) 3. urinary tract infection (fever higher than 102.5 degrees F, burning upon urination or increased frequency of urination) 4. nerve problems (inability to walk on your toes or heels, numbness, loss of bowel or bladder control) 5. any other symptoms that concern you C. Please call the office at if you have any concerns or questions about your operation or recovery. D. No smoking! Smoking drastically decreases the chance of a solid fusion. E. Do not take any anti-inflammatory medications (Indocin, Advil, Motrin, Aspirin, Naprosyn, etc.) as these may inhibit the chance of a solid fusion. Tylenol is okay to take for pain. MANAGING PAIN AFTER SPINAL SURGERY 1. Narcotic medication is intended for short-term use and will be provided for surgical pain. Surgical pain usually lasts for a period of 4-6 weeks. 2. Remember that we all live with some "aches and pains". This is not unusual or uncommon after an injury or as we get older. a. Back pain is expected and may include muscle spasms for 4 to 6 weeks after surgery. The pain should gradually improve. If the pain worsens for no apparent reason, please contact the office. b. Intermittent leg pain may also be experienced and should not be concerned about unless it worsens for no apparent reason. If so, please contact the office. 3. We will provide appropriate medication within the normal guidelines of their prescribed use. We will also be very cautious and aware of potential abuse and extended duration of patients' medication needs. a. Pain medications are for your comfort and to assist with sleep and rest so that the tissue can heal. They are not provided in order to return to normal activity and should not be used through the day. To do so or worsening pain at night can result from ongoing tissue damage and development of tolerance to the prescribed medicine. 4. Please allow 2-3 days to process refills on pain medication. Prescriptions will not be mailed but must be picked up at the office. FOLLOW UP VISIT: 10-[address] Werner Any questions, please call the office at . Addtl Setter Helper Provider Instructions: Mr Medrano, You were hospitalized for severe back pain and right leg pain. The right leg pain was due to the large herniated disc at L3-L4 in your lumbar spine region. Prior to the hospital stay you had suffered a fall which caused a large scalp laceration. This required janet to repair it. The janet were removed 04/02/23. Dr Rey Werner from [facility] saw you in consult and recommended surgery for your back. You underwent successful decompression-fusion surgery of the L3-L4 area on 03/30/23. From an orthopedic standpoint you have done very well throughout your stay. In 2018 following your right hip surgery you had developed a DVT in the right leg. We are concerned that you are at higher risk of developing DVT blood clots of the legs during your recovery. We discussed using a prophylactic blood thinner for the next 6 weeks to prevent DVT blood clots. However, on your recent head CTs, we found that you have a small chronic- appearing subdural hematoma. This is a blood collection underneath the skull bone. Again this collection is small and chronic/old. This blood collection likely occurred as a result of a previous fall with head injury. At this time we will defer on an oral blood thinner due to the above. I would also like you to hold your aspirin for now. For pain you have been prescribed oxycodone. You can take 5mg every 6 hours as needed for pain. Do not drink alcohol when using this medication. If you prefer not to take the oxycodone pain killer medication you can take ejee-hop-mxjqljc tylenol (acetaminophen) 1000mg every 6 hours as needed, maximum of 3000mg in 24 hours. For any constipation issues at home you can take 1 or both of the following vtua-dkx-izkwtdm medications - * miralax one serving daily mixed in 8 ounces of water AND/OR * senokot 2 tablets daily For your diabetes please continue to check your sugars at least once daily and you may resume your metformin upon return home this evening. Return to [facility] if - * you have any fever over 100 degrees * you have worsening back pain or leg pains despite taking oxycodone and/or tylenol * you cannot have a bowel movement * you are short of breath * you have any concerns about your incision in your lower back * any other concerns It was our pleasure to care for you! -Dr Elliott Pending Studies at Discharge: No Stand-Alone Forms: [facility], Smoking Cessation Medications and DC Order Prescriptions: New oxycodone 5 mg tablet 5 mg PO Q6H PRN (Reason: pain) Qty: 30 0RF Continued atorvastatin 40 mg tablet 20 mg PO HS Rx Instructions: 40 mg PO TAKE ONE-HALF TABLET HS; tamsulosin 0.4 mg capsule 0.4 mg PO DAILY multivitamin tablet 1 tab PO DAILY metformin 500 mg Tablet 500 mg PO BID venlafaxine 150 mg Capsule,Extended Release 24hr 150 mg PO DAILY hydroxyzine HCl 10 mg Tablet 10 mg PO QID PRN (Reason: Anxiety) Rx Instructions: Usually takes at bedtime pregabalin 75 mg Capsule 75 mg PO BID omega 9-aen-vck-fish oil [Fish Oil] 1,000 mg (120 mg-180 mg) Capsule 1 cap PO DAILY Held aspirin 81 mg tablet,delayed release (DR/EC) 81 mg PO DAILY Hold Instructions: hold unless otherwise instructed to resume by your outpatient doctors Discontinued ibuprofen 200 mg tablet 200 mg PO QID PRN (Reason: Pain) hydrochlorothiazide 25 mg Tablet 25 mg PO DAILY Discharge Orders: Discharge Order (Routine); Ordered 04/02/23 Ordered By: Pineda Hernandez/Other Patient Handouts: Managing Type 2 Diabetes, 5 Steps for Eating Healthier Admission Data Admit Date/Time: 03/27/23 18:26 Attending Provider: Pineda Elliott Admit Provider: Dari Dobson Primary Care Provider: Fortino Bravo Other Providers: [facility] ; Dari Dboson ; Sujit Werner ; Taylor Bush ; Nishant Wolf [facility] Coding Diagnoses Hypotension I95.9 Lumbar disc herniation with radiculopathy M51.16 Subdural hematoma S06.5XAA Thrombocytopenia D69.6 DVT (deep venous thrombosis) I82.409 Chronic respiratory failure with hypoxia, on home oxygen therapy J96.11; Z99.81 Morbid obesity with BMI of 45.0-49.9, adult E66.01; Z68.42 Laceration of scalp S01.01XA Encounter type: initial encounter BPH (benign prostatic hyperplasia) N40.0 Hemochromatosis E83.119 Obesity hypoventilation syndrome E66.2 Hypertension I10 Gout M10.9 Diabetes mellitus type 2, controlled E11.9
== END 2023-04-02 18:46 | disposition home health service (06) | DRG 453 ==
LOC: ED 03:12 → 3E 03:12 → SUATTDRO 03-27 18:26

== ENCOUNTER 2023-12-21 18:08 | Inpatient (IN) ==
--- NOTE | 2023-12-21 18:28 | Emergency Department Note ---
Impression & Plan Acute and chronic respiratory failure, Elevated troponin, Acute UTI, Hypervolemia, Pneumonia ED Provider Note NAME: RUDY JOHNSON Sr AGE: 83 SEX: M ARRIVES VIA: Ambulance INFORMANT: Patient ED PROVIDER(S): Mike Sylvester MD CHIEF COMPLAINT: Shortness of breath PLAN: Disposition: Admit MEDICAL DECISION MAKING: The patient is a pleasant 83-year-old gentleman with a past medical history of chronic respiratory failure with hypoxia and hypercapnia on home oxygen, obesity hypoventilation syndrome on home BiPap, right hemidiaphragm paralysis, morbid obesity, hypertension, hyperlipidemia, gout, osteoarthritis, neuropathy, BPH, lumbar disc herniation with radiculopathy, h/o DVT not on anticoagulation, h/o SDH February 2023 who presents to the emergency department via EMS from his home where he lives with the son for evaluation of worsening shortness of breath over the past couple of days or today he was particularly worse. EMS is familiar with the patient for frequent calls for lift assist and feel he is more confused than he has been in the past. The patient and son who lives with were reported to be poor historians regarding health history and development of symptoms. On my evaluation the patient is in moderate respiratory distress with increased work of breathing on 100% O2 placed by EMS due to having O2 saturation in the low 80s on room air on their arrival. He is afebrile and vital signs are otherwise stable. He appears hypervolemic with 2+ bilateral lower extremity pitting edema. He has diminished breath sounds of bilateral lung ulloa scant underlying wheeze. Patient is alert and oriented to self, place and situation but does exhibit some confusion confounded by suspected underlying hearing impairment. He moves all extremities with generalized weakness without focal unilateral extremity weakness noted. EKG without overt acute ischemia. Chest x-ray demonstrates cardiomegaly with mild pulmonary edema and small bilateral pleural effusions. Additionally noted are suspected airspace opacities in bilateral lower lungs. WBC within normal limits without neutrophilia or left shift. H/H within normal limits. Platelets 98K, similar to prior range of values. VBG with normal pH with mild hypercapnia with pCO2 of 56. Chemistry without metabolic acidosis. Lactic acid 1.5, within normal limits. Magnesium 1.7 and phosphorus 1.7 and electrolytes otherwise without significant abnormality. LFTs unremarkable. Initial high-sensitivity troponin 184, nonspecific. BNP mildly elevated 159, nonspecific without prior for comparison though consistent with patient's hypervolemic appearance. Lipase not elevated. Procalcitonin is not elevated. TSH within normal limits. UA suspicious for infection with positive nitrites, leuk esterase, WBCs and 2+ bacteria. Blood cultures have been obtained and empiric treatment initiated with IV vancomycin per prior urine culture (coag negative staph in December 2019) and addition of cefepime until source further clarified. Upon reevaluation patient's respiratory status did significantly improve with DuoNeb and BiPAP. IV Lasix additionally ordered for component of hypervolemia. CT of the head for confusion from baseline and CTA of the chest given acute worsening dyspnea and elevated troponin were ordered and pending. Case was discussed with SUSAN Villafuerte PAC, with SUSAN Alberto hospitalist who will evaluate the patient for admission. CT of the head sets were negative for acute abnormalities. CTA of the chest heterogenous opacification of pulmonary arteries with no definite pulmonary embolism identified. Bilateral lower lobe opacities reflect atelectasis versus aspiration or pneumonia. Further management per admitting team. Triage Nursing notes reviewed and agree them. Prior/external medical records reviewed Vital Signs: reviewed Differential diagnosis: Reactive airway disease, pneumonia, pneumothorax, COPD, CHF, infections, cardiac ischemia, pulmonary embolism, musculoskeletal, gastrointestinal, as well as other pathologies. ER treatment provided: See below. Diagnostics interpreted by me: ECG: Sinus rhythm with occasional PVCs, 100 bpm, right bundle branch block, left anterior fascicular block, no overt ST elevation or depression, QTc 474, QRS 144 Cardiac Monitoring: An order for continuous cardiac monitoring was placed and demonstrated Sinus rhythm with occasional PVCs, 100 bpm, occasional PVCs Laboratory studies: See below Imaging studies: See below Consultation(s): SUSAN Villafuerte PAC, with SUSAN Alberto hospitalist HPI: The patient is a pleasant 83-year-old gentleman with a past medical history of chronic respiratory failure with hypoxia and hypercapnia on home oxygen, obesity hypoventilation syndrome on home BiPap, right hemidiaphragm paralysis, morbid obesity, hypertension, hyperlipidemia, gout, osteoarthritis, neuropathy, BPH, lumbar disc herniation with radiculopathy, h/o DVT not on anticoagulation, h/o SDH February 2023 who presents to the emergency department via EMS from his home where he lives with the son for evaluation of worsening shortness of breath over the past couple of days or today he was particularly worse. EMS is familiar with the patient for frequent calls for lift assist and feel he is more confused than he has been in the past. The patient and son who lives with were reported to be poor historians regarding health history and development of symptoms. ROS: See above HPI for pertinent positives & negatives. A total of 10 systems reviewed and were otherwise negative. VITALS:See Below PHYSICAL EXAMINATION: GENERAL: Awake, alert, chronically ill-appearing, moderate respiratory distress, morbidly obese HENT: Normocephalic, atraumatic. Oropharynx unremarkable. EYES: Normal conjunctiva. Sclera non-icteric. NECK: Supple. No nuchal rigidity. FROM. No JVD. RESPIRATORY: Diminished breath sounds bilaterally with underlying wheeze with increased work of breathing. CARDIAC: Regular rate, normal rhythm. Extremities warm and well perfused. Pulses equal. ABDOMEN: Soft, non-distended. No tenderness to palpation. No rebound or guarding. No masses. RECTAL: Deferred. MUSCULOSKELETAL: Chest examination reveals no tenderness. The back is symmetrical on inspection without obvious abnormality. There is no CVA tenderness to palpation. No joint edema. LOWER EXTREMITIES: Calves are equal size bilaterally and non-tender. 2+ bilateral lower extremity pitting edema. No discoloration. NEURO: No overt focal sensory or motor deficits noted. Moving all extremities with generalized weakness. SKIN: No rash or jaundice noted. ED COURSE: Critical Care: I have personally spent greater than 35 minutes of critical care time in the direct management of this patient. This includes bedside care, interpretation of diagnostic studies, and testing, discussion with consultants, patient, and family members, and other required patient management activities. This 35 minutes is in excess of all separately billable procedures. Mike Sylvester MD Past Med/Surg History Medical History History of DVT (deep vein thrombosis) Acquired lymphedema Encounter for pre-operative examination Thrombocytopenia Subdural hematoma S/P fall 03/23/2023 CT Head with chronic hematoma vs hygroma Morbid obesity with BMI of 45.0-49.9, adult Lumbago with sciatica, right side Neuropathy Olecranon bursitis of left elbow BPH (benign prostatic hyperplasia) Hemochromatosis Depression with anxiety Arthritis Anxiety DVT (deep venous thrombosis) Provoked October 2017 Chronic respiratory failure with hypoxia, on home oxygen therapy Obesity hypoventilation syndrome 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 Osteoarthritis Hypertension Dyslipidemia Gout Surgical History Hx of knee surgery 1989 H/O umbilical hernia repair Hx of cholecystectomy Right wrist fracture "S/P repair" Fracture of right hip "S/P repair" Family History Mother Lung cancer Lung disease Brother Lung cancer Lung disease Denies family history of Ovarian cancer Prostate cancer Myocardial infarction Breast cancer Colorectal cancer Social History Smoking Status: Never smoker Second Hand Exposure: No; Do You Dip or Chew Tobacco: No; Hx Alcohol Use: No Hx Substance Use: No Preferred Language: Burmese Communication Ability: Effective Visual Impairment: No Limitations Hearing Ability: Normal Elevator Dispatcher Required: No Beliefs That Will Affect Care: None marital status: / Current Living Situation: Family and Other Current Living Situation Comment: Live with son current occupational status: retired 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 How many Children do You have: 2 Other Information That Helps Us Care for You: No Feels Safe at Home: Yes Safety Concerns: Feels Safe At This Time Childhood Exposure to Second-Hand Smoke: No Diet: regular caffeine: Yes during the past year weight has: remained stable Dental Care, Regularly: No Physical Activity Frequency: Daily Seatbelt Use: always Sunscreen Use: No Assistive Devices: Cane, CPAP, Denture - Lower and Walker Allergies Allergies Allergy/AdvReac Type Severity Reaction Status Date / Time No Known Allergies Allergy Unverified 03/26/23 10:15 Home Meds Home Medications Medication Instructions Recorded Confirmed aspirin 81 mg tablet,delayed 81 mg PO DAILY 10/27/19 12/21/23 release atorvastatin 40 mg tablet 20 mg PO HS 10/27/19 12/21/23 multivitamin 1 tab PO DAILY 10/27/19 12/21/23 tamsulosin 0.4 mg capsule 0.4 mg PO DAILY 10/27/19 12/21/23 hydroxyzine HCl 10 mg tablet 10 mg PO QID PRN Anxiety 03/26/23 12/21/23 metformin 500 mg tablet 500 mg PO BID 03/26/23 12/21/23 omega 0-bcs-imy-fish oil 1,000 mg 1 cap PO DAILY 03/26/23 12/21/23 (120 mg-180 mg) capsule (Fish Oil) pregabalin 75 mg capsule 75 mg PO BID 03/26/23 12/21/23 venlafaxine 150 mg 150 mg PO DAILY 03/26/23 12/21/23 capsule,extended release 24 hr Previous Rx's Medication Instructions Recorded hydrochlorothiazide 25 mg tablet 25 mg PO DAILY #90 tabs 04/09/23 Results & Data (ED) Vital Signs Vital Signs - 24 hr 12/21/23 18:44 12/21/23 18:44 12/21/23 18:44 Temperature 37 C Temperature Source Oral Pulse Rate 103 H Pulse Rate [Finger] Pulse Rate from SpO2 Sensor Respiratory Rate 26 H 26 H Respiratory Effort / Characteristics Non-Labored Respiratory Depth Normal Blood Pressure 143/70 H Blood Pressure Mean 94 Blood Pressure Position Lying Pulse Oximetry 96 96 95 Oxygen Delivery Method Non-rebreather Non-rebreather Non-rebreather Oxygen Flow Rate 10 10 10 Fraction of Inspired Oxygen Sepsis Recent Fever Within 48 Hours No Sepsis New/Unexplained Change in Mental Status Yes Sepsis Action Taken by Nursing Physician Notified 12/21/23 18:59 12/21/23 19:00 12/21/23 19:06 Temperature Temperature Source Pulse Rate 103 H 101 H 102 H Pulse Rate [Finger] Pulse Rate from SpO2 Sensor Respiratory Rate 25 H 21 Respiratory Effort / Characteristics Spontaneous Short of Breath Respiratory Depth Blood Pressure 143/70 H Blood Pressure Mean 94 Blood Pressure Position Pulse Oximetry 95 94 Oxygen Delivery Method CPAP Oxygen Flow Rate Fraction of Inspired Oxygen 60 Sepsis Recent Fever Within 48 Hours Sepsis New/Unexplained Change in Mental Status Sepsis Action Taken by Nursing 12/21/23 19:13 12/21/23 20:00 12/21/23 20:30 Temperature Temperature Source Pulse Rate 92 H 90 Pulse Rate [Finger] 102 H Pulse Rate from SpO2 Sensor 90 Respiratory Rate 19 23 16 Respiratory Effort / Characteristics Spontaneous Short of Breath Respiratory Depth Blood Pressure 154/74 H 144/66 H Blood Pressure Mean 100 92 Blood Pressure Position Pulse Oximetry 95 92 94 Oxygen Delivery Method BiPAP CPAP Oxygen Flow Rate Fraction of Inspired Oxygen 60 Sepsis Recent Fever Within 48 Hours Sepsis New/Unexplained Change in Mental Status Sepsis Action Taken by Nursing 12/21/23 20:30 12/21/23 20:45 12/21/23 21:00 Temperature Temperature Source Pulse Rate 89 89 Pulse Rate [Finger] Pulse Rate from SpO2 Sensor 89 90 Respiratory Rate 21 21 Respiratory Effort / Characteristics Respiratory Depth Blood Pressure 144/66 H 151/72 H 125/79 Blood Pressure Mean 90 98 94 Blood Pressure Position Pulse Oximetry 95 96 Oxygen Delivery Method Oxygen Flow Rate Fraction of Inspired Oxygen Sepsis Recent Fever Within 48 Hours Sepsis New/Unexplained Change in Mental Status Sepsis Action Taken by Nursing 12/21/23 21:16 12/21/23 21:40 12/21/23 21:45 Temperature Temperature Source Pulse Rate 92 H 102 H 100 H Pulse Rate [Finger] Pulse Rate from SpO2 Sensor 92 H 101 H 93 H Respiratory Rate 19 21 29 H Respiratory Effort / Characteristics Respiratory Depth Blood Pressure 128/62 179/119 H 174/95 H Blood Pressure Mean 84 139 121 Blood Pressure Position Pulse Oximetry 98 90 94 Oxygen Delivery Method Oxygen Flow Rate Fraction of Inspired Oxygen Sepsis Recent Fever Within 48 Hours Sepsis New/Unexplained Change in Mental Status Sepsis Action Taken by Nursing 12/21/23 22:00 12/21/23 22:30 Temperature Temperature Source Pulse Rate 99 H 103 H Pulse Rate [Finger] Pulse Rate from SpO2 Sensor 99 H 98 H Respiratory Rate 26 H 17 Respiratory Effort / Characteristics Respiratory Depth Blood Pressure 149/101 H 173/91 H Blood Pressure Mean 117 118 Blood Pressure Position Pulse Oximetry 95 94 Oxygen Delivery Method Oxygen Flow Rate Fraction of Inspired Oxygen Sepsis Recent Fever Within 48 Hours Sepsis New/Unexplained Change in Mental Status Sepsis Action Taken by Nursing Laboratory Data Attestation: I reviewed the patient's lab results. 12/21/23 18:40 12/21/23 18:40 Lab Results 12/21/23 12/21/23 12/21/23 Range/Units 18:40 19:15 19:21 WBC 6.80 (4.8-10.8) K/ul RBC 4.47 L (4.70-6.10) M/uL Hgb 15.0 (14.0-18.0) g/dl Hct 44.6 (42.0-52.0) % MCV 99.8 (80.0-100.0) fL MCH 33.6 (25.0-34.0) pg MCHC 33.6 (32.0-36.0) g/dL RDW Std Deviation 51.5 H (36.4-46.3) fL RDW Coeff of Jessica 13.8 (11.5-14.5) % Plt Count 98 L (130-400) K/uL MPV 12.0 (9.4-12.4) fL Immature Gran % (Auto) 0.1 % Neut % (Auto) 84.5 % Lymph % (Auto) 5.4 % [place] % (Auto) 9.0 % Eos % (Auto) 0.1 % Baso % (Auto) 0.9 % Neut # (Auto) 5.74 (1.40-6.50) K/uL Lymph # (Auto) 0.37 L (1.20-3.40) K/uL [place] # (Auto) 0.61 H (0.11-0.59) K/uL Eos # (Auto) 0.01 (0.00-0.50) K/uL Baso # (Auto) 0.06 (0.00-0.20) K/uL Immature Gran # (Auto) 0.01 (0.01-0.20) K/uL PT Cancelled INR Cancelled VBG pH 7.37 (7.36-7.41) VBG pCO2 56 H (38-50) mmHg VBG pO2 59 mmHg VBG HCO3 32 mmol/L VBG O2 Saturation 91.4 % VBG Base Excess 5.5 mEq/L Sodium 137 (136-145) mmol/L Potassium 4.6 (3.5-5.1) mmol/L Chloride 100 (98-107) mmol/L Carbon Dioxide 32 (21-32) mmol/L Anion Gap 5 (3-11) BUN 21 (6-23) mg/dl Creatinine 1.06 (0.6-1.4) mg/dl Est Cr Clr Drug Dosing 74.1 ml/min Est GFR ( Amer) 74.3 ml/min Est GFR (Non-Af Amer) 64.1 ml/min BUN/Creatinine Ratio 19.8 (10-20) Glucose 191 H (70-99(Fasting)) mg/dl Lactate 1.4 (0.4-2.0) mmol/L Calcium 8.5 L (8.6-10.3) mg/dl Phosphorus 1.7 L (2.5-4.9) mg/dl Magnesium 1.7 (1.7-2.4) mg/dl Total Bilirubin 0.9 (0.2-1.0) mg/dl Direct Bilirubin 0.2 (0-0.2) mg/dl AST 39 (13-39) U/L ALT 23 (7-52) U/L Alkaline Phosphatase 118 H (34-104) U/L Troponin I High Sens 184.5 H* (0-20) pg/ml B-Natriuretic Peptide 159 H (0-100) pg/ml Total Protein 6.6 (6.0-8.3) gm/dl Albumin 3.1 L (3.4-5.0) gm/dl Lipase 35 (11-82) U/L Procalcitonin 0.25 (0-0.5) ng/ml TSH 3.647 (0.300-4.500) uIu/ml Urine Color Dark Yellow Urine Appearance Turbid A (Clear) Urine pH 8.0 H (4.5-7.5) Ur Specific [place] 1.018 (1.000-1.030) Urine Protein Trace H (Negative) Urine Glucose (UA) 1+ H (Negative) Urine Ketones Negative (Negative) Urine Blood 3+ H (Negative) Urine Nitrite Positive A (Negative) Urine Bilirubin Negative (Negative) Urine Urobilinogen Negative (Negative) Ur Leukocyte Esterase 3+ H (Negative) Urine WBC (Auto) >30 H (0-5) /hpf Urine RBC (Auto) 10-30 H (0-4) /hpf U Hyaline Cast (Auto) 1-5 (0-5) /lpf U Epithel Cells (Auto) 0-5 (0-5) /lpf Urine Bacteria (Auto) 2+ H (Negative) WBC Casts 1-5 H (0) /lpf Urine Yeast Not Reportable Adenovirus (PCR) Not Detected (NotDetected) B. pertussis DNA (PCR) Not Detected (NotDetected) B.parapertussis DNA PCR Not Detected (NotDetected) C. pneumoniae DNA (PCR) Not Detected (NotDetected) Coronavirus OC43 (PCR) Not Detected (NotDetected) Coronavirus HKU1 (PCR) Not Detected (NotDetected) Coronavirus 229E (PCR) Not Detected (NotDetected) SARS-CoV-2 (PCR) Not Detected (NotDetected) Coronavirus NL63 (PCR) Not Detected (NotDetected) Human Metapneumovir PCR Not Detected (NotDetected) Influenza Type A (PCR) Not Detected (NotDetected) Influenza Type B (PCR) Not Detected (NotDetected) M. pneumoniae (PCR) Not Detected (NotDetected) Parainfluenza 1 (PCR) Not Detected (NotDetected) Parainfluenza 2 (PCR) Not Detected (NotDetected) Parainfluenza 3 (PCR) Not Detected (NotDetected) Parainfluenza 4 (PCR) Not Detected (NotDetected) RSV (PCR) Not Detected (NotDetected) Entero/Rhino (PCR) Not Detected (NotDetected) 12/21/23 Range/Units 20:38 WBC (4.8-10.8) K/ul RBC (4.70-6.10) M/uL Hgb (14.0-18.0) g/dl Hct (42.0-52.0) % MCV (80.0-100.0) fL MCH (25.0-34.0) pg MCHC (32.0-36.0) g/dL RDW Std Deviation (36.4-46.3) fL RDW Coeff of Jessica (11.5-14.5) % Plt Count (130-400) K/uL MPV (9.4-12.4) fL Immature Gran % (Auto) % Neut % (Auto) % Lymph % (Auto) % [place] % (Auto) % Eos % (Auto) % Baso % (Auto) % Neut # (Auto) (1.40-6.50) K/uL Lymph # (Auto) (1.20-3.40) K/uL [place] # (Auto) (0.11-0.59) K/uL Eos # (Auto) (0.00-0.50) K/uL Baso # (Auto) (0.00-0.20) K/uL Immature Gran # (Auto) (0.01-0.20) K/uL PT 12.0 INR 1.1 VBG pH (7.36-7.41) VBG pCO2 (38-50) mmHg VBG pO2 mmHg VBG HCO3 mmol/L VBG O2 Saturation % VBG Base Excess mEq/L Sodium (136-145) mmol/L Potassium (3.5-5.1) mmol/L Chloride (98-107) mmol/L Carbon Dioxide (21-32) mmol/L Anion Gap (3-11) BUN (6-23) mg/dl Creatinine (0.6-1.4) mg/dl Est Cr Clr Drug Dosing ml/min Est GFR ( Amer) ml/min Est GFR (Non-Af Amer) ml/min BUN/Creatinine Ratio (10-20) Glucose (70-99(Fasting)) mg/dl Lactate (0.4-2.0) mmol/L Calcium (8.6-10.3) mg/dl Phosphorus (2.5-4.9) mg/dl Magnesium (1.7-2.4) mg/dl Total Bilirubin (0.2-1.0) mg/dl Direct Bilirubin (0-0.2) mg/dl AST (13-39) U/L ALT (7-52) U/L Alkaline Phosphatase (34-104) U/L Troponin I High Sens 181.7 H* (0-20) pg/ml B-Natriuretic Peptide (0-100) pg/ml Total Protein (6.0-8.3) gm/dl Albumin (3.4-5.0) gm/dl Lipase (11-82) U/L Procalcitonin (0-0.5) ng/ml TSH (0.300-4.500) uIu/ml Urine Color Urine Appearance (Clear) Urine pH (4.5-7.5) Ur Specific [place] (1.000-1.030) Urine Protein (Negative) Urine Glucose (UA) (Negative) Urine Ketones (Negative) Urine Blood (Negative) Urine Nitrite (Negative) Urine Bilirubin (Negative) Urine Urobilinogen (Negative) Ur Leukocyte Esterase (Negative) Urine WBC (Auto) (0-5) /hpf Urine RBC (Auto) (0-4) /hpf U Hyaline Cast (Auto) (0-5) /lpf U Epithel Cells (Auto) (0-5) /lpf Urine Bacteria (Auto) (Negative) WBC Casts (0) /lpf Urine Yeast Adenovirus (PCR) (NotDetected) B. pertussis DNA (PCR) (NotDetected) B.parapertussis DNA PCR (NotDetected) C. pneumoniae DNA (PCR) (NotDetected) Coronavirus OC43 (PCR) (NotDetected) Coronavirus HKU1 (PCR) (NotDetected) Coronavirus 229E (PCR) (NotDetected) SARS-CoV-2 (PCR) (NotDetected) Coronavirus NL63 (PCR) (NotDetected) Human Metapneumovir PCR (NotDetected) Influenza Type A (PCR) (NotDetected) Influenza Type B (PCR) (NotDetected) M. pneumoniae (PCR) (NotDetected) Parainfluenza 1 (PCR) (NotDetected) Parainfluenza 2 (PCR) (NotDetected) Parainfluenza 3 (PCR) (NotDetected) Parainfluenza 4 (PCR) (NotDetected) RSV (PCR) (NotDetected) Entero/Rhino (PCR) (NotDetected) Administered Medications Discontinued Medications Albuterol (Albut/Ipratrop 3mg/0.5mg Neb 3 Ml Vial) 3 ml NEB NOW STA; Protocol Stop: 12/21/23 18:21 Last Admin: 12/21/23 19:12 Dose: 3 ml Documented By: JOANNAT Furosemide (Furosemide Inj 20 Mg/2 Ml Vial) 20 mg IV ONE ONE Stop: 12/21/23 22:27 Last Admin: 12/21/23 22:55 Dose: 20 mg Documented By: NAW Magnesium Sulfate/Dextrose (Magnesium Sulfate / D5w) 1 gm in 100 mls @ 100 mls/hr IV NOW STA Stop: 12/21/23 21:15 Last Infusion: 12/22/23 01:44 Dose: Infused Documented By: JOSE MANUELP Admin: 12/21/23 20:52 Dose: 100 mls/hr Documented By: NAW Cefepime HCl (Maxipime) 2,000 mg in 20 mls @ 5 mls/min IV NOW STA; Protocol Stop: 12/21/23 20:21 Last Admin: 12/21/23 20:52 Dose: 5 mls/min Documented By: NAW Vancomycin HCl 2,750 mg/ (Sodium Chloride) 555 mls @ 200 mls/hr IV NOW ONE Stop: 12/21/23 23:07 Last Infusion: 12/22/23 01:44 Dose: Infused Documented By: Admin: 12/21/23 22:08 Dose: 200 mls/hr Documented By: GIOVANNA Ioversol (Optiray 320 125ml) 118 ml IV ONCE ONE Stop: 12/21/23 21:38 Last Admin: 12/21/23 21:38 Dose: 118 ml Documented By: GEP Imaging Data Radiologist's Impression: Chest X-Ray 12/21/23 18:19 XR chest 1V portable CLINICAL HISTORY: Sepsis TECHNIQUE: Single frontal radiograph of the chest was obtained. Comparison: Comparison is made to chest radiograph 03/23/2023 FINDINGS: No lines and tubes are seen. Cardiomegaly is noted. Prominence and cephalization of the vasculature is seen. Airspace opacities in the bilateral lower lungs cannot be excluded. Small bilateral pleural effusions are seen. IMPRESSION: 1. Cardiomegaly and mild pulmonary edema. 2. Small bilateral pleural effusions. 3. Cannot exclude airspace opacities in the bilateral lower lungs. ACT 112: Negative or not required by law. Electronically signed by: Kenneth Lanza M.D. 12/21/2023 7:18 PM Chest CTA 12/21/23 20:13 Exam(s): CTA CHEST IV Amt: 118 cc opti 320 EXAM: CT Angiography Chest With Intravenous Contrast CLINICAL HISTORY: Reason for exam: sob, elevated trop, r/o PE. TECHNIQUE: Axial computed tomographic angiography images of the chest with intravenous contrast. Automated exposure control was utilized for the study. A dose lowering technique was utilized adhering to the principles of ALARA. MIP reconstructed images were created and reviewed. COMPARISON: CT chest angiogram 12/20/2017. FINDINGS: Pulmonary arteries: Heterogeneous opacification of the pulmonary arteries. No definite pulmonary embolism identified. Aorta: No acute findings. No thoracic aortic aneurysm. Lungs: Bilateral lower lobe opacities. Pleural space: Unremarkable. No significant effusion. No pneumothorax. Heart: Severe coronary artery atherosclerotic calcifications. No cardiomegaly. No significant pericardial effusion. No evidence of RV dysfunction. Bones/joints: Degenerative change in the spine. No acute fracture. No dislocation. Soft tissues: Unremarkable. Lymph nodes: Unremarkable. No enlarged lymph nodes. Gallbladder and bile ducts: Cholecystectomy. Upper abdomen: Elevation the left hemidiaphragm. IMPRESSION: 1. Heterogeneous opacification of the pulmonary arteries. No definite pulmonary embolism identified. 2. Bilateral lower lobe opacities. This may represent atelectasis, aspiration, or pneumonia. 3. Severe coronary artery atherosclerotic calcifications. Electronically signed by: Amilcar Justin MD 12/21/23 22:[address] 12/21/23 20:13 Exam(s): CT HEAD Without Contrast EXAM: CT Head Without Intravenous Contrast CLINICAL HISTORY: Reason for exam: confusion. TECHNIQUE: Axial computed tomography images of the head/brain without intravenous contrast. CTDI is mGy and DLP is mGy-cm. Automated exposure control was utilized for the study. A dose lowering technique was utilized adhering to the principles of ALARA. COMPARISON: CT head 03/29/2023. FINDINGS: Brain: Global parenchymal volume loss chronic microvascular ischemic changes. No hemorrhage. Ventricles: No ventriculomegaly. Bones/joints: Unremarkable. No acute fracture. Soft tissues: Unremarkable. Sinuses: Unremarkable as visualized. Mastoid air cells: Unremarkable as visualized. No mastoid effusion. IMPRESSION: 1. No intracranial hemorrhage or other acute intracranial abnormality. 2. Global parenchymal volume loss with chronic microvascular ischemic changes. Electronically signed by: Amilcar Justin MD 12/21/23 22:18 PM Discharge Plan Visit Data Chief Complaint: Shortness of Breath/Dyspnea Stated Complaint: SHORT OF BREATH ED Provider: Mike Sylvester Discharge Problem: Acute and chronic respiratory failure, Elevated troponin, Acute UTI, Hypervolemia, Pneumonia Discharge Instructions Interventions: ED Discharge Assessment Last Done: 12/22/23 00:47 Discharge Problem: Acute and chronic respiratory failure Qualifiers: Respiratory failure complication: hypoxia and hypercapnia Qualified Code(s): J 96.21 - Acute and chronic respiratory failure with hypoxia; J96.22 - Acute and chronic respiratory failure with hypercapnia Hypervolemia Qualifiers: Hypervolemia type: unspecified Qualified Code(s): E87.70 - Fluid overload, unspecified Pneumonia Qualifiers: Pneumonia type: due to unspecified organism Laterality: bilateral Lung location: lower lobe of lung Qualified Code(s): J18.9 - Pneumonia, unspecified organism
[2023-12-21] MEDS: ALBUT/IPRATROP 3MG/0.5MG NEB 3 ML VIAL NEB STA (19:12)
--- NOTE | 2023-12-21 19:20 | XRay Report ---
XR chest 1V portable CLINICAL HISTORY: Sepsis TECHNIQUE: Single frontal radiograph of the chest was obtained. Comparison: Comparison is made to chest radiograph 03/23/2023 FINDINGS: No lines and tubes are seen. Cardiomegaly is noted. Prominence and cephalization of the vasculature i s seen. Airspace opacities in the bilateral lower lungs cannot be excluded. Small bilateral pleural e ffusions are seen. IMPRESSION: 1. Cardiomegaly and mild pulmonary edema. 2. Small bilateral pleural effusions. 3. Cannot exclude airspace opacities in the bilateral lower lungs. ACT 112: Negative or not required by law. Electronically signed by: Kenneth Lanza M.D. 12/21/2023 7:18 PM
[2023-12-21 19:27] LABS: Base Excess VBG 5.5 mEq/L; HCO3 VBG 32 mmol/L; Oxygen Saturation VBG 91.4 %; PCO2 VBG 56 mmHg (38-50); PO2 VBG 59 mmHg; pH VBG 7.37 (7.36-7.41)
[2023-12-21 19:35] LABS: Appearance Urine Turbid (Clear); Bilirubin Urine Negative (Negative); Blood Urine 3+ (Negative); Color Urine Dark Yellow; Glucose Urine UA 1+ (Negative); Ketones Urine Negative (Negative); Leukocyte Esterase Urine 3+ (Negative); Nitrite Urine Positive (Negative); Specific Gravity Urine 1.018 (1.000-1.030); Urobilinogen Urine Negative (Negative); WBC Urine Automated >30 /hpf (0-5)
[2023-12-21 19:35] LABS: Albumin Level 3.1 gm/dl (3.4-5.0); BUN Creatinine Ratio 19.8 (10-20); Bilirubin Direct 0.2 mg/dl (0-0.2); Bilirubin,Total 0.9 mg/dl (0.2-1.0); Calcium 8.5 mg/dl (8.6-10.3); Creatinine Clr Calc Pharmacy 74.1 ml/min; Est GFR (African American) 74.3 ml/min; Est GFR (Non-African American) 64.1 ml/min; Magnesium 1.7 mg/dl (1.7-2.4); Phosphorus 1.7 mg/dl (2.5-4.9); Potassium 4.6 mmol/L (3.5-5.1); Total Protein 6.6 gm/dl (6.0-8.3)
[2023-12-21 19:47] LABS: Basophils # (auto) 0.06 K/uL (0.00-0.20); Basophils % (auto) 0.9 %; Eosinophils # (auto) 0.01 K/uL (0.00-0.50); Eosinophils % (auto) 0.1 %; Hematocrit (blood only) 44.6 % (42.0-52.0); Immature Granulocytes # (auto) 0.01 K/uL (0.01-0.20); Immature Granulocytes % (auto) 0.1 %; Lymphocytes # (auto) 0.37 K/uL (1.20-3.40); Lymphocytes % (auto) 5.4 %; Mean Corpuscular Hemoglobin 33.6 pg (25.0-34.0); Mean Corpuscular Hgb Conc 33.6 g/dL (32.0-36.0); Mean Corpuscular Volume 99.8 fL (80.0-100.0); Monocytes # (auto) 0.61 K/uL (0.11-0.59); Neutrophils # (auto) 5.74 K/uL (1.40-6.50); Neutrophils % (auto) 84.5 %; Platelet Count 98 K/uL (130-400); RDW Coefficient of Variation 13.8 % (11.5-14.5); RDW Standard Deviation 51.5 fL (36.4-46.3); Red Blood Count 4.47 M/uL (4.70-6.10)
[2023-12-21 19:50] LABS: Thyroid Stimulating Hormone 3.647 uIu/ml (0.300-4.500)
[2023-12-21 19:55] LABS: Protein Urine Trace (Negative)
[2023-12-21 19:59] LABS: Troponin I High Sensitivity 184.5 pg/ml (0-20)
[2023-12-21 20:12] LABS: Epithelial Cell Urine Auto 0-5 /lpf (0-5)
[2023-12-21 20:13] LABS: Bacteria Urine Automated 2+ (Negative)
[2023-12-21] MEDS ORDERED: VANCOMYCIN CONSULT ACTIVE PRN (20:18)
[2023-12-21 20:22] LABS: Adenovirus PCR Not Detected (NotDetected); Bordetella parapertussis PCR Not Detected (NotDetected); Bordetella pertussis PCR Not Detected (NotDetected); Chlamydia pneumoniae PCR Not Detected (NotDetected); Coronavirus 229E PCR Not Detected (NotDetected); Coronavirus CoV-2 (COVID19)PCR Not Detected (NotDetected); Coronavirus HKU1 PCR Not Detected (NotDetected); Coronavirus NL63 PCR Not Detected (NotDetected); Coronavirus OC43PCR Not Detected (NotDetected); Human Metapneumovirus PCR Not Detected (NotDetected); Influenza A PCR Not Detected (NotDetected); Influenza B PCR Not Detected (NotDetected); Mycoplasma pneumoniae PCR Not Detected (NotDetected); Parainfluenza Virus 1 PCR Not Detected (NotDetected); Parainfluenza Virus 2 PCR Not Detected (NotDetected); Parainfluenza Virus 3 PCR Not Detected (NotDetected); Parainfluenza Virus 4 PCR Not Detected (NotDetected); Respiratory Syncytial VirusPCR Not Detected (NotDetected); Rhinovirus/Enterovirus PCR Not Detected (NotDetected)
--- NOTE | 2023-12-21 20:32 | History & Physical Report ---
Date of Service December 21, 2023 Assessment & Plan (1) Acute and chronic respiratory failure: Plan: Worsening SOB x several weeks; however, son noted fever this morning and hypoxia at 74% SpO2 EMS reported 82% on RA on arrival, and noted an acute cognitive change (EMS is familiar with this patient) Started on CPAP in the ED Chest CTA revealed no definite pulmonary emboli (heterogeneous opacification of the pulmonary arteries); bilateral lower lobe opacities; ?PNA No leukocytosis VB.37/56/59/32 Lactate WNL Procalcitonin WNL BioFire negative CXR with small bilateral pleural effusions, cannot exclude airspace opacities in the lower lung ulloa bilaterally; chronic left hemidiaphragm EKG revealed sinus rhythm with PVCs at 100 bpm; QTc 474; RBBB and left anterior fascicular blocks were present on prior EKGs BNP elevated at 159; no prior BNPs available for comparison Echocardiogram ordered, pending Will treat with Lasix 40 mg IV BID17 given elevated BNP and lower extremity edema Continue CPAP for now and wean if possible Acetaminophen as needed for pain/fever Zofran as needed for nausea/vomiting; QTc 474 A.m. CBC, BMP, mag, troponin, VBG (2) Diabetes mellitus type 2, controlled: Plan: Last A1c at 6.6% on 03/27/2023 Glucose 191 on admission Hold metformin Lantus 8 u BID while inpatient SSI; with target BSG range 110-140mg/dL, CF 35, carb ratio 10 T2DM diet BSG ACHS Adjust regimen as needed A.m. A1c (3) Urinary tract infection: Plan: UA positive on arrival; also, notable for 3+ blood Foster placed in ED Blood cultures ordered, pending Continue cefepime 2000 mg IV q12h Vancomycin ordered in the ED (as prior urine culture from 2019 revealed coag negative Staphylococcus sensitive to vancomycin); will defer further vancomycin for now; MRSA swab ordered, pending Urine culture ordered, pending (4) Elevated troponin: Plan: Elevated troponin 184.5-->181.7 on arrival A.m. troponin (5) Altered mental status: Plan: Per EMS and patient's son, he had an acute change in cognitive baseline this morning; ?Secondary to hypoxia Head CT revealed NAF No facial droop, slurred speech, or unilateral deficits noted on physical exam Patient was A&O x 2 on arrival; oriented to name//location, not oriented to month Consider Brain MRI if patient clinically deteriorates (6) History of DVT (deep vein thrombosis): Plan: Provoked in 2018 Not currently on anticoagulation (7) Obesity hypoventilation syndrome: Plan: Patient reports he is normally on BiPAP at night Plan Disposition: Admit to PCU telemetry DNR/DNI T2DM Diet VTE PPx: Lovenox 40 mg SQ q24h History of Present Illness Chief Complaint: SOB/Dyspnea Primary Care Provider: HERBERTH Cowart Erik is an 83-year-old male with PMH of T2DM, gout, dyslipidemia, HTN, OA, pickwickian syndrome, depression with anxiety, DVT, BPH, hemochromatosis, subdural hematoma, and acquired lymphedema. He presented via EMS for worsening SOB times several weeks. Per EMS, patient was 82% on RA. Patient is a poor historian at baseline. He reports that he was feeling "sick" this morning, and had a bit of a fever, but is unable to provide a reason why. He notes that he usually wears a BiPAP at night. Patient is hypertensive at 154/74 and SpO2 is 92% on CPAP at time of admission. ED course: Started on CPAP Vancomycin 2750 mg IV Cefepime 2000 mg IV DuoNeb 3 mL Magnesium sulfate 1 g IV Difficult to obtain ROS in patient's current state, however patient denies chest pain, fever at present, chills, SOB at rest. Spoke on the phone with patient's son/POA (Bassam) who the patient lives with. Patient's son reports that he has been having intermittent chills this past week, and that today he was "feeling sick" and not making sense. Son also reports that he had a fever this morning, and that when he went to put the pulse ox on it was around 74%. Patient's son manages the patient's medications and reports that he took all of his regular morning meds, and that there have been no recent change in medications. He reports that the patient was previously on anticoagulation for DVT PPx following a hip fracture, but is not currently on anticoagulation. Son reconfirms CODE STATUS as DNR/DNI. Allergies Allergy/AdvReac Type Severity Reaction Status Date / Time No Known Allergies Allergy Unverified 03/26/23 10:15 Home Medications Medication Instructions Recorded Confirmed Type aspirin 81 mg tablet,delayed 81 mg PO DAILY 10/27/19 12/21/23 History release atorvastatin 40 mg tablet 20 mg PO HS 10/27/19 12/21/23 History multivitamin 1 tab PO DAILY 10/27/19 12/21/23 History tamsulosin 0.4 mg capsule 0.4 mg PO DAILY 10/27/19 12/21/23 History hydroxyzine HCl 10 mg tablet 10 mg PO QID PRN Anxiety 03/26/23 12/21/23 History metformin 500 mg tablet 500 mg PO BID 03/26/23 12/21/23 History omega 1-zmv-tin-fish oil 1,000 mg 1 cap PO DAILY 03/26/23 12/21/23 History (120 mg-180 mg) capsule (Fish Oil) pregabalin 75 mg capsule 75 mg PO BID 03/26/23 12/21/23 History venlafaxine 150 mg 150 mg PO DAILY 03/26/23 12/21/23 History capsule,extended release 24 hr hydrochlorothiazide 25 mg tablet 25 mg PO DAILY #90 tabs 04/09/23 12/21/23 Rx Past Med/Surg History Medical History (Updated 12/21/23 @ 22:22 by Daniel Ramírez PA-C) History of DVT (deep vein thrombosis) Acquired lymphedema Encounter for pre-operative examination Thrombocytopenia Subdural hematoma S/P fall 03/23/2023 CT Head with chronic hematoma vs hygroma Morbid obesity with BMI of 45.0-49.9, adult Lumbago with sciatica, right side Neuropathy Olecranon bursitis of left elbow BPH (benign prostatic hyperplasia) Hemochromatosis Depression with anxiety Arthritis Anxiety DVT (deep venous thrombosis) Provoked October 2017 Chronic respiratory failure with hypoxia, on home oxygen therapy Obesity hypoventilation syndrome 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 Osteoarthritis Hypertension Dyslipidemia Gout Surgical History Hx of knee surgery 1989 H/O umbilical hernia repair Hx of cholecystectomy Right wrist fracture "S/P repair" Fracture of right hip "S/P repair" Family History Mother Lung cancer Lung disease Brother Lung cancer Lung disease Denies family history of Ovarian cancer Prostate cancer Myocardial infarction Breast cancer Colorectal cancer Social History Smoking Status: Never smoker Second Hand Exposure: No; Do You Dip or Chew Tobacco: No; Hx Alcohol Use: No Hx Substance Use: No Preferred Language: Greek Communication Ability: Effective Visual Impairment: No Limitations Hearing Ability: Normal Apple Checker Required: No Beliefs That Will Affect Care: None marital status: / Current Living Situation: Family and Other Current Living Situation Comment: Live with son current occupational status: retired 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 How many Children do You have: 2 Other Information That Helps Us Care for You: No Feels Safe at Home: Yes Safety Concerns: Feels Safe At This Time Childhood Exposure to Second-Hand Smoke: No Diet: regular caffeine: Yes during the past year weight has: remained stable Dental Care, Regularly: No Physical Activity Frequency: Daily Seatbelt Use: always Sunscreen Use: No Assistive Devices: Cane, CPAP, Denture - Lower and Walker Review of Systems Review of Systems: See HPI above Physical Exam Physical Exam: General: Moderate respiratory distress; SpO2 92% on CPAP; non-toxic appearing; well-nourished; cooperative HEENT: normocephalic, atraumatic; no scleral icterus; PERRLA w/ EOMs intact; moist mucus membrane; vision and hearing intact, however difficult to assess given CPAP Neck: supple; negative for JVD; no lymphadenopathy; trachea midline Skin: warm, dry without signs of tenting; no cyanosis; no rashes, bruising, lesions, or erythema noted CV: chest wall NTP; RRR; S1/S2 normal; no murmurs/rubs/gallops; pulses intact and symmetric at radial, DP, and PT Lungs: Moderate respiratory distress; symmetrical chest wall expansion; clear breath sounds across all lung ulloa w/o adventitious sounds; no wheezing ABD: Soft, NTP; BS present; no rebound/guarding; no ascites; no distention; negative CVA tenderness MSK: no tics or fasciculations; gross lymphadenopathy in the LEs B/L with +2 pitting edema, nonerythematous : Foster catheter in place draining dark orange urine Neuro: Oriented to name//location, not oriented to month; no facial droop; no slurred speech; sensation intact in the LEs b/l Results & Data Results & Data Vital Signs (Past 12 Hours) Vital Signs Temp Pulse Pulse Resp BP Pulse Ox O2 Del Method 12/21/23 20:00 92 H 23 154/74 H 92 CPAP 12/21/23 19:13 102 H 19 95 BiPAP 12/21/23 19:06 102 H 21 94 12/21/23 19:00 101 H 25 H 143/70 H 95 CPAP 12/21/23 18:59 103 H 12/21/23 18:44 26 H 95 Non-rebreather 12/21/23 18:44 96 Non-rebreather 12/21/23 18:44 37 C 103 H 26 H 143/70 H 96 Non-rebreather O2 Flow Rate FiO2 12/21/23 20:00 12/21/23 19:13 60 12/21/23 19:06 60 12/21/23 19:00 12/21/23 18:59 12/21/23 18:44 10 12/21/23 18:44 10 12/21/23 18:44 10 Laboratory Results Abnormal lab results 12/21/23 12/21/23 12/21/23 Range/Units 18:40 19:15 19:21 RBC 4.47 L (4.70-6.10) M/uL RDW Std Deviation 51.5 H (36.4-46.3) fL Plt Count 98 L (130-400) K/uL Lymph # (Auto) 0.37 L (1.20-3.40) K/uL [place] # (Auto) 0.61 H (0.11-0.59) K/uL VBG pCO2 56 H (38-50) mmHg Glucose 191 H (70-99(Fasting)) mg/dl Calcium 8.5 L (8.6-10.3) mg/dl Phosphorus 1.7 L (2.5-4.9) mg/dl Alkaline Phosphatase 118 H (34-104) U/L Troponin I High Sens 184.5 H* (0-20) pg/ml B-Natriuretic Peptide 159 H (0-100) pg/ml Albumin 3.1 L (3.4-5.0) gm/dl Urine Appearance Turbid A (Clear) Urine pH 8.0 H (4.5-7.5) Urine Protein Trace H (Negative) Urine Glucose (UA) 1+ H (Negative) Urine Blood 3+ H (Negative) Urine Nitrite Positive A (Negative) Ur Leukocyte Esterase 3+ H (Negative) Urine WBC (Auto) >30 H (0-5) /hpf Urine RBC (Auto) 10-30 H (0-4) /hpf Urine Bacteria (Auto) 2+ H (Negative) WBC Casts 1-5 H (0) /lpf Diagnostic Findings Chest X-Ray 12/21/23 18:19 XR chest 1V portable CLINICAL HISTORY: Sepsis TECHNIQUE: Single frontal radiograph of the chest was obtained. Comparison: Comparison is made to chest radiograph 03/23/2023 FINDINGS: No lines and tubes are seen. Cardiomegaly is noted. Prominence and cephalization of the vasculature is seen. Airspace opacities in the bilateral lower lungs cannot be excluded. Small bilateral pleural effusions are seen. IMPRESSION: 1. Cardiomegaly and mild pulmonary edema. 2. Small bilateral pleural effusions. 3. Cannot exclude airspace opacities in the bilateral lower lungs. ACT 112: Negative or not required by law. Electronically signed by: Kenneth Lanza M.D. 12/21/2023 7:18 PM Code Status & VTE Plan Code Status DNR/DNI VTE Prophylaxis Plan VTE Prophylaxis will be ordered: Yes Supervising Physician Co-Signing Physician Notes Attending addendum: I have physically seen this patient, have supervised the YOGI's activities, and agree with the H&P unless as otherwise noted. Assessment and Plan: Acute on chronic respiratory failure- Combination of pneumonia and CHF Symptoms for several weeks, but noted to be more hypoxic this morning at home with pulse ox of 74% EMS noted 82% upon arrival on room air CTA chest was negative for PE, but did show bilateral lower lobe lower lobe opacities with possible pneumonia BioFire negative Improved on BiPAP in the ED, will titrate downward to nasal cannula oxygen as symptoms improve Bilateral lower lobe lower lobe pneumonia- Received vancomycin IV and cefepime IV in the ED Check MRSA swab Continue cefepime 2 g IV every 12 hours Further vancomycin dosing will be based upon MRSA swab and urine culture CHF/pleural effusions/elevated troponin- The patient will be admitted to telemetry for serial cardiac enzymes, serial EKG's, cardiac rhythm monitoring Initial troponin 24.5, with follow-up 181.7 Repeat labs in a.m. Lasjen 40 mg IV twice daily Follow clinical examination Serial renal function panel and magnesium levels Urinary tract infection- Urine looks positive Placed on antibiotics as above Follow urine culture and sensitivity Diabetes mellitus- Glucose 191 on admission Lantus 8 units subcu twice daily Placed on Accu-Cheks with NovoLog SSI PG Care Time/CCT Total # of Minutes Spent Total Time Spent with Patient: Total time spent is greater than 50% in coordination of care (as documented) at patient's floor/unit and/or counseling patient: Coding [place] [address] INT INP/OBS CARE 3/75MIN Patient Type Established Medical Decision Making High Complexity Diagnoses Acute and chronic respiratory failure J96.20 Diabetes mellitus type 2, controlled E11.9 Urinary tract infection N39.0 Elevated troponin R79.89 Altered mental status R41.82 History of DVT (deep vein thrombosis) Z86.718 Obesity hypoventilation syndrome E66.2
[2023-12-21] MEDS: CEFEPIME 2,000 MG/20 ML VIAL IV STA (20:52)
[2023-12-21] MEDS: MAGNESIUM SULFATE / D5W 1 GM/100 ML BAG IV STA (20:52)
[2023-12-21 21:17] LABS: INR 1.1 (0.9-1.1)
[2023-12-21] MEDS: OPTIRAY 320 125ml IV ONE (21:38)
[2023-12-21] MEDS: VANCOMYCIN HCL 2,750 MG in SODIUM CHLORIDE 0.9% 500 ML IV ONE (22:08)
--- NOTE | 2023-12-21 22:18 | CT Scan Report ---
Exam(s): CT HEAD Without Contrast EXAM: CT Head Without Intravenous Contrast CLINICAL HISTORY: Reason for exam: confusion. TECHNIQUE: Axial computed tomography images of the head/brain without intravenous contrast. CTDI is mGy and DLP is mGy-cm. Automated exposure control was utilized for the study. A dose lowering technique was utilized adhering to the principles of ALARA. COMPARISON: CT head 03/29/2023. FINDINGS: Brain: Global parenchymal volume loss chronic microvascular ischemic changes. No hemorrhage. Ventricles: No ventriculomegaly. Bones/joints: Unremarkable. No acute fracture. Soft tissues: Unremarkable. Sinuses: Unremarkable as visualized. Mastoid air cells: Unremarkable as visualized. No mastoid effusion. IMPRESSION: 1. No intracranial hemorrhage or other acute intracranial abnormality. 2. Global parenchymal volume loss with chronic microvascular ischemic changes. Electronically signed by: Amilcar Justin MD 12/21/23 22:18 PM
--- NOTE | 2023-12-21 22:28 | CT Scan Report ---
Exam(s): CTA CHEST IV Amt: 118 cc opti 320 EXAM: CT Angiography Chest With Intravenous Contrast CLINICAL HISTORY: Reason for exam: sob, elevated trop, r/o PE. TECHNIQUE: Axial computed tomographic angiography images of the chest with intravenous contrast. Automated exposure control was utilized for the study. A dose lowering technique was utilized adhering to the principles of ALARA. MIP reconstructed images were created and reviewed. COMPARISON: CT chest angiogram 12/20/2017. FINDINGS: Pulmonary arteries: Heterogeneous opacification of the pulmonary arteries. No definite pulmonary embolism identified. Aorta: No acute findings. No thoracic aortic aneurysm. Lungs: Bilateral lower lobe opacities. Pleural space: Unremarkable. No significant effusion. No pneumothorax. Heart: Severe coronary artery atherosclerotic calcifications. No cardiomegaly. No significant pericardial effusion. No evidence of RV dysfunction. Bones/joints: Degenerative change in the spine. No acute fracture. No dislocation. Soft tissues: Unremarkable. Lymph nodes: Unremarkable. No enlarged lymph nodes. Gallbladder and bile ducts: Cholecystectomy. Upper abdomen: Elevation the left hemidiaphragm. IMPRESSION: 1. Heterogeneous opacification of the pulmonary arteries. No definite pulmonary embolism identified. 2. Bilateral lower lobe opacities. This may represent atelectasis, aspiration, or pneumonia. 3. Severe coronary artery atherosclerotic calcifications. Electronically signed by: Amilcar Justin MD 12/21/23 22:26 PM
[2023-12-21] MEDS: FUROSEMIDE INJ 20 MG/2 ML VIAL IV ONE (22:55)
[2023-12-22] MEDS ORDERED: DEXTROSE 50% 50 ML SYRINGE IV PRN (00:47)
[2023-12-22] MEDS ORDERED: GLUCOSE 10 TAB/TUBE PO PRN (00:47)
[2023-12-22] MEDS ORDERED: GLUCAGON FOR INJ 1 MG VIAL SQ PRN (00:47)
[2023-12-22] MEDS ORDERED: GLUCOSE 40% GEL 15 GM TUBE PO PRN (00:47)
[2023-12-22] MEDS ORDERED: CARBOHYDRATES FOR HYPOGLYCEMIA PO PRN (00:47)
[2023-12-22] MEDS ORDERED: ONDANSETRON INJ 2 MG/ML 2 ML VIAL IV PRN (00:47)
[2023-12-22 06:16] LABS: Base Excess VBG 8.6 mEq/L; HCO3 VBG 34 mmol/L; Oxygen Saturation VBG 98.7 %; PCO2 VBG 49 mmHg (38-50); PO2 VBG 101 mmHg; pH VBG 7.45 (7.36-7.41)
[2023-12-22 06:31] LABS: Basophils # (auto) 0.04 K/uL (0.00-0.20); Basophils % (auto) 0.4 %; Hematocrit (blood only) 46.3 % (42.0-52.0); Hemoglobin 15.1 g/dl (14.0-18.0); Immature Granulocytes # (auto) 0.04 K/uL (0.01-0.20); Immature Granulocytes % (auto) 0.4 %; Lymphocytes # (auto) 0.53 K/uL (1.20-3.40); Lymphocytes % (auto) 5.6 %; Mean Corpuscular Hemoglobin 32.6 pg (25.0-34.0); Mean Corpuscular Hgb Conc 32.6 g/dL (32.0-36.0); Mean Platelet Volume 11.9 fL (9.4-12.4); Monocytes # (auto) 1.01 K/uL (0.11-0.59); Monocytes % (auto) 10.6 %; Neutrophils # (auto) 7.88 K/uL (1.40-6.50); Platelet Count 104 K/uL (130-400); RDW Standard Deviation 51.8 fL (36.4-46.3); Red Blood Count 4.63 M/uL (4.70-6.10)
[2023-12-22 06:53] LABS: BUN Creatinine Ratio 21.3 (10-20); Calcium 8.9 mg/dl (8.6-10.3); Creatinine Clr Calc Pharmacy 83.6 ml/min; Est GFR (African American) 85.9 ml/min; Est GFR (Non-African American) 74.2 ml/min; Magnesium 1.6 mg/dl (1.7-2.4); Potassium 3.9 mmol/L (3.5-5.1)
[2023-12-22 07:13] LABS: Troponin I High Sensitivity 137.6 pg/ml (0-20)
[2023-12-22 07:56] LABS: Estimated Average Glucose 137 mg/dl; Hemoglobin A1C 6.4 % (4.5-5.6)
[2023-12-22] MEDS: FUROSEMIDE 40 MG/4 ML VIAL IV SCH (08:42)
[2023-12-22] MEDS: ASPIRIN 81 MG ECTAB PO SCH (08:44)
[2023-12-22] MEDS: TAMSULOSIN HCL 0.4 MG CAP PO SCH (08:45)
[2023-12-22] MEDS: PREGABALIN 75 MG CAP PO SCH (08:45)
[2023-12-22] MEDS: VENLAFAXINE HCL XR 150 MG CAPXR PO SCH (08:45)
[2023-12-22] MEDS: hydroCHLOROthiazide 25 MG TAB PO SCH (08:45)
[2023-12-22] MEDS: ENOXAPARIN INJ 40 MG/0.4 ML SYR SQ SCH (08:46)
[2023-12-22] MEDS: VANCOMYCIN HCL 1,000 MG in SODIUM CHLORIDE 0.9% 250 ML IV SCH (09:42)
[2023-12-22] MEDS: INSULIN ASPART PER UNIT CHARGE SC SCH (10:06)
[2023-12-22] MEDS: LANTUS PER UNIT CHARGE SQ SCH (10:07)
[2023-12-22] MEDS: CEFEPIME 2,000 MG in SYRINGE 0 ML IV SCH (10:18)
[2023-12-22 10:21] LABS: A calco-baum cmplx NotReported Not Detected (NotDetected); Bact fragilis Not Reported Not Detected (NotDetected); Blood Culture Id Panel See PCR Comment (NotDetected); C auris Not Reported Not Detected (NotDetected); CTX-M Resistant Gene Not Detected (NotDetected); Calbicans Not Reported Not Detected (NotDetected); Candida glabrata Not Reported Not Detected (NotDetected); Candida krusei Not Reported Not Detected (NotDetected); Cneoformans/gatti Not Reported Not Detected (NotDetected); Cparapsilosis Not Reported Not Detected (NotDetected); E cloacae compx Not Reported Not Detected (NotDetected); Efaecalis Not Reported Not Detected (NotDetected); Efaecium Not Reported Not Detected (NotDetected); Enterobacterales DETECTED (NotDetected); Enterobacterales Not Reported DETECTED (NotDetected); Escherichia coli Not Reported Not Detected (NotDetected); H influenzae Not Reported Not Detected (NotDetected); IMP Resistant Gene Not Detected (NotDetected); K aerogenes Not Reported Not Detected (NotDetected); KPC Resistant Gene Not Detected (NotDetected); Koxytoca Not Reported Not Detected (NotDetected); Kpneumoniae grp Not Reported Not Detected (NotDetected); Lmonocyt Not Reported Not Detected (NotDetected); N meningitidis Not Reported Not Detected (NotDetected); NDM Resistant Gene Not Detected (NotDetected); OXA 48 Like Resistant Gene Not Detected (NotDetected); P aeruginosa Not Reported Not Detected (NotDetected); Proteus spp Not Reported DETECTED (NotDetected); Salmonella spp Not Reported Not Detected (NotDetected); Smarcescens Not Reported Not Detected (NotDetected); Staph lugdunensis Not Reported Not Detected (NotDetected); Staph spp. Not Reported Not Detected (NotDetected); Staphaureus Not Reported Not Detected (NotDetected); Staphepi Not Reported Not Detected (NotDetected); Stenmaltophilia Not Reported Not Detected (NotDetected); Strep agal(GrpB) Not Reported Not Detected (NotDetected); Strep pneum Not Reported Not Detected (NotDetected); Strep pyog (GrpA) Not Reported Not Detected (NotDetected); Strep spp Not Reported Not Detected (NotDetected); VIM Resistant Gene Not Detected (NotDetected)
--- NOTE | 2023-12-22 10:24 | Electrocardiogram Report ---
Test Reason : Blood Pressure : / mmHG Vent. Rate : 100 BPM Atrial Rate : 100 BPM P-R Int : 192 ms QRS Dur : 144 ms QT Int : 368 ms P-R-T Axes : 034 -72 026 degrees QTc Int : 474 ms Sinus rhythm with occasional Premature ventricular complexes Right bundle branch block Left anterior fascicular block Bifascicular block Abnormal ECG When compared with ECG of 02-APR-2023 15:22, Premature ventricular complexes are now Present Premature supraventricular complexes are no longer Present Confirmed by Montez De Guzman ([id number]) on 12/22/2023 10:23:39 AM Referred By: REFERRED SELF Confirmed By:Montez De Guzman
[2023-12-22 10:32] LABS: Proteus species DETECTED (NotDetected)
[2023-12-22] MEDS: MAGNESIUM SULFATE / D5W 1 GM/100 ML BAG IV SCH (11:02)
--- NOTE | 2023-12-22 12:00 | CT Scan Report ---
CT abd pelvis wo con CLINICAL HISTORY: UTI/sepsis; eval obstructing stone, etc TECHNIQUE: Helical axial images of the abdomen and pelvis were obtained. Automated dose lowering tech niques and/or adjustment according to patient size were utilized for this exam. This exam was perfor med without intravenous contrast. CT DOSE: 1746.61 mGy.cm COMPARISON: Comparison is made to CT abdomen pelvis 01/30/2018 FINDINGS: Lower chest: Bibasilar atelectasis versus scarring is seen. Severe atherosclerotic disease is seen. Liver: Unremarkable. No focal lesions are seen. Gallbladder and biliary tree: Patient is status post cholecystectomy. No intra- or extrahepatic bilia ry ductal dilation. Pancreas: Unremarkable, no focal lesions. Spleen: Unremarkable. Adrenals: Unremarkable. Kidneys and ureters: Left-sided nephroureterolithiasis is seen with multiple ureteral stones includin g a 6 mm stone in the mid ureter which may cause mild obstruction. Bladder: Foster catheter is seen. Reproductive organs: Unremarkable. Bowel: Diverticulosis is seen without diverticulitis. The appendix is normal. Lymph nodes Retroperitoneal: Unremarkable. Pelvic: Unremarkable. Mesenteric: Unremarkable. Peritoneum: Normal. Vessels: Unremarkable. Abdominal wall: Unremarkable. Bones: Degenerative changes in the visualized spine. Posterior fixation hardware spans L3-L4. Right f emoral nail is seen. IMPRESSION: Likely obstructive left ureteral stone with very mild hydroureteronephrosis. Additional nonobstructiv e stones are seen. Additional findings as above. ACT 112: Negative or not required by law. Electronically signed by: Kenneth Lanza M.D. 12/22/2023 11:58 AM
--- NOTE | 2023-12-22 13:02 | Hospitalist Progress Note ---
Date of Service December 22, 2023 Assessment & Plan (1) Urinary tract obstruction by kidney stone: Plan: CT a/p today with left-sided mid-ureteral stone In light of this finding in the context of bacteremia/UTI [facility] [place] They performed cystoscopy with left-sided ureteral stent placement today Appreciate their assistance Cont abx for UTI (2) Bacteremia: Plan: 2nd to GNR likely source - urinary tract repeat blood cx's x 2 sets in am tomorrow cont current IV abx likely can narrow abx tomorrow (3) Acute metabolic encephalopathy: Plan: 2nd to pneumonia/UTI/obstructing kidney stone/bacteremia supportive care avoid sedatives (4) Pneumonia: Plan: b/l lower lobes continue cefepime/vanco for now keep o2 sats low 90s (5) Complicated UTI (urinary tract infection): Plan: GNR UTI in the setting of an obstructing kidney stone on left -- see above (6) Acute and chronic respiratory failure: Plan: Chest CTA - no PE, probable b/l lower lobe pneumonia Respiratory BioFire negative Given lasix IV overnight but in light of bacteremia/UTI and his exam (does not examine overtly volume overloaded) will hold additional lasix tonight/tomorrow am acute resp failure - 2nd to pneumonia chronic resp failure - [facility]/ABDULLAHI; son reports he does NOT use daytime O2; he is on CPAP at night (7) Diabetes mellitus type 2, controlled: Plan: Hba1c 6.4% this admission hold metformin lantus-novolog BSGs ac/hs (8) Elevated troponin: Plan: Peak troponin 184.5 Likely myocardial demand ischemia in the setting of bacteremia/UTI/obstructing kidney stone on left No evidence of ACS Echo had been ordered but apparently he declined having it done Will re-attempt tomorrow (9) History of DVT (deep vein thrombosis): Plan: Provoked event - 2018 Not currently on anticoagulation In light of chronic edema consider dopplers to r/o a new DVT (10) Obesity hypoventilation syndrome: Plan: Patient reports he is normally on BiPAP at night (11) Subdural hematoma: Plan: previous history of - 2022 Plan DVT proph - lovenox daily he will need PT and OT while here Admission and Anticipated Discharge Date Admission Date: December 21, 2023 Subjective saw patient in the ER after he completed CT a/p CT was obtained due to +blood cx's and UTI CT showed obstructing kidney stone(s) on the left during my assessment he was resting comfortably in bed with oxymask in place son was present at bedside his son feels that his mentation is a little better today patient was indeed awake and following commands denies ANY back pain or flank pain denies abd pain breathing is a little better today denies any prior h/o kidney stone to his knowledge he reports very poor appetite today - did not eat any breakfast or lunch Review of Systems Review of Systems: gen - weak, fatigue cv - no chest pain; + edema (chronic) pulm - mild cough, no dyspnea at rest GI - no nausea/emesis musculo - chronic low back pain Physical Exam Physical Exam: gen - obese, looks ill, NAD, a little sleepy mouth - MM dry neck - no JVD heart - RRR, s1 s2 lungs - decreased BS bases, minimal rales bases, CTA b/l apices, no wheeze abd - soft NT ND BS+; no flank tenderness to palpation b/l ext - 1-2+ edema b/l, pulses 2+ b/l, feet are cool to touch psych - sleepy but able to answer questions & follow commands Results & Data Results & Data Vital Signs (Past 12 Hours) Vital Signs Temp Pulse Pulse Resp BP Pulse Ox O2 Del Method 12/22/23 11:07 85 21 134/71 94 CPAP 12/22/23 07:25 86 12/22/23 07:14 91 H 21 136/86 96 CPAP 12/22/23 07:10 90 18 96 12/22/23 04:21 37.0 C 100 H 20 128/86 95 BiPAP 12/22/23 02:50 98 H 20 95 12/22/23 02:25 101 H 12/22/23 01:36 CPAP 12/22/23 01:34 95 CPAP 12/22/23 01:30 36.8 C 102 H 20 150/80 H 94 CPAP FiO2 12/22/23 11:07 12/22/23 07:25 12/22/23 07:14 12/22/23 07:10 40 12/22/23 04:21 12/22/23 02:50 50 12/22/23 02:25 12/22/23 01:36 12/22/23 01:34 02/27/24 01:30 Laboratory Results Laboratory Results - last 24 hr 12/21/23 12/21/23 12/21/23 18:40 19:15 19:21 WBC 6.80 RBC 4.47 L Hgb 15.0 Hct 44.6 MCV 99.8 MCH 33.6 MCHC 33.6 RDW Std Deviation 51.5 H RDW Coeff of Jessica 13.8 Plt Count 98 L MPV 12.0 Immature Gran % (Auto) 0.1 Neut % (Auto) 84.5 Lymph % (Auto) 5.4 [place] % (Auto) 9.0 Eos % (Auto) 0.1 Baso % (Auto) 0.9 Neut # (Auto) 5.74 Lymph # (Auto) 0.37 L [place] # (Auto) 0.61 H Eos # (Auto) 0.01 Baso # (Auto) 0.06 Immature Gran # (Auto) 0.01 PT Cancelled INR Cancelled VBG pH 7.37 VBG pCO2 56 H VBG pO2 59 VBG HCO3 32 VBG O2 Saturation 91.4 VBG Base Excess 5.5 Sodium 137 Potassium 4.6 Chloride 100 Carbon Dioxide 32 Anion Gap 5 BUN 21 Creatinine 1.06 Est Cr Clr Drug Dosing 74.1 Est GFR ( Amer) 74.3 Est GFR (Non-Af Amer) 64.1 BUN/Creatinine Ratio 19.8 Glucose 191 H POC Glucose Estimat Average Glucose Hemoglobin A1c Lactate 1.4 Calcium 8.5 L Phosphorus 1.7 L Magnesium 1.7 Total Bilirubin 0.9 Direct Bilirubin 0.2 AST 39 ALT 23 Alkaline Phosphatase 118 H Troponin I High Sens 184.5 H* B-Natriuretic Peptide 159 H Total Protein 6.6 Albumin 3.1 L Lipase 35 Procalcitonin 0.25 TSH 3.647 Urine Color Dark Yellow Urine Appearance Turbid A Urine pH 8.0 H Ur Specific [place] 1.018 Urine Protein Trace H Urine Glucose (UA) 1+ H Urine Ketones Negative Urine Blood 3+ H Urine Nitrite Positive A Urine Bilirubin Negative Urine Urobilinogen Negative Ur Leukocyte Esterase 3+ H Urine WBC (Auto) >30 H Urine RBC (Auto) 10-30 H U Hyaline Cast (Auto) 1-5 U Epithel Cells (Auto) 0-5 Urine Bacteria (Auto) 2+ H WBC Casts 1-5 H Urine Yeast Not Reportable Nasal Screen MRSA (PCR) Adenovirus (PCR) Not Detected B. pertussis DNA (PCR) Not Detected B.parapertussis DNA PCR Not Detected C. pneumoniae DNA (PCR) Not Detected Coronavirus OC43 (PCR) Not Detected Coronavirus HKU1 (PCR) Not Detected Coronavirus 229E (PCR) Not Detected SARS-CoV-2 (PCR) Not Detected Coronavirus NL63 (PCR) Not Detected Enterobacterales (PCR) DETECTED A Human Metapneumovir PCR Not Detected Influenza Type A (PCR) Not Detected Influenza Type B (PCR) Not Detected M. pneumoniae (PCR) Not Detected Parainfluenza 1 (PCR) Not Detected Parainfluenza 2 (PCR) Not Detected Parainfluenza 3 (PCR) Not Detected Parainfluenza 4 (PCR) Not Detected Proteus species (PCR) DETECTED A RSV (PCR) Not Detected Entero/Rhino (PCR) Not Detected blaIMP Car res Gene PCR Not Detected KPC-Carbap Res Gene PCR Not Detected blaNDM Car Res Gene PCR Not Detected OXA-48 Carbapenem Resis Gene (PCR) Not Detected blaVIM Car Res Gene PCR Not Detected CTX-M Gene Resistance (PCR) Not Detected Bld Cult ID Panel PCR See PCR Comment 12/21/23 12/22/23 12/22/23 20:38 05:59 07:16 WBC 9.50 RBC 4.63 L Hgb 15.1 Hct 46.3 MCV 100.0 MCH 32.6 MCHC 32.6 RDW Std Deviation 51.8 H RDW Coeff of Jessica 14.0 Plt Count 104 L MPV 11.9 Immature Gran % (Auto) 0.4 Neut % (Auto) 83.0 Lymph % (Auto) 5.6 [place] % (Auto) 10.6 Eos % (Auto) 0.0 Baso % (Auto) 0.4 Neut # (Auto) 7.88 H Lymph # (Auto) 0.53 L [place] # (Auto) 1.01 H Eos # (Auto) 0.00 Baso # (Auto) 0.04 Immature Gran # (Auto) 0.04 PT 12.0 INR 1.1 VBG pH 7.45 H VBG pCO2 49 VBG pO2 101 VBG HCO3 34 VBG O2 Saturation 98.7 VBG Base Excess 8.6 Sodium 137 Potassium 3.9 Chloride 99 Carbon Dioxide 31 Anion Gap 7 BUN 20 Creatinine 0.94 Est Cr Clr Drug Dosing 83.6 Est GFR ( Amer) 85.9 Est GFR (Non-Af Amer) 74.2 BUN/Creatinine Ratio 21.3 H Glucose 177 H POC Glucose 164 H Estimat Average Glucose 137 Hemoglobin A1c 6.4 H Lactate Calcium 8.9 Phosphorus Magnesium 1.6 L Total Bilirubin Direct Bilirubin AST ALT Alkaline Phosphatase Troponin I High Sens 181.7 H* 137.6 H* D B-Natriuretic Peptide Total Protein Albumin Lipase Procalcitonin TSH Urine Color Urine Appearance Urine pH Ur Specific [place] Urine Protein Urine Glucose (UA) Urine Ketones Urine Blood Urine Nitrite Urine Bilirubin Urine Urobilinogen Ur Leukocyte Esterase Urine WBC (Auto) Urine RBC (Auto) U Hyaline Cast (Auto) U Epithel Cells (Auto) Urine Bacteria (Auto) WBC Casts Urine Yeast Nasal Screen MRSA (PCR) Adenovirus (PCR) B. pertussis DNA (PCR) B.parapertussis DNA PCR C. pneumoniae DNA (PCR) Coronavirus OC43 (PCR) Coronavirus HKU1 (PCR) Coronavirus 229E (PCR) SARS-CoV-2 (PCR) Coronavirus NL63 (PCR) Enterobacterales (PCR) Human Metapneumovir PCR Influenza Type A (PCR) Influenza Type B (PCR) M. pneumoniae (PCR) Parainfluenza 1 (PCR) Parainfluenza 2 (PCR) Parainfluenza 3 (PCR) Parainfluenza 4 (PCR) Proteus species (PCR) RSV (PCR) Entero/Rhino (PCR) blaIMP Car res Gene PCR KPC-Carbap Res Gene PCR blaNDM Car Res Gene PCR OXA-48 Carbapenem Resis Gene (PCR) blaVIM Car Res Gene PCR CTX-M Gene Resistance (PCR) Bld Cult ID Panel PCR 12/22/23 12/22/23 11:33 Unknown WBC RBC Hgb Hct MCV MCH MCHC RDW Std Deviation RDW Coeff of Jessica Plt Count MPV Immature Gran % (Auto) Neut % (Auto) Lymph % (Auto) [place] % (Auto) Eos % (Auto) Baso % (Auto) Neut # (Auto) Lymph # (Auto) [place] # (Auto) Eos # (Auto) Baso # (Auto) Immature Gran # (Auto) PT INR VBG pH VBG pCO2 VBG pO2 VBG HCO3 VBG O2 Saturation VBG Base Excess Sodium Potassium Chloride Carbon Dioxide Anion Gap BUN Creatinine Est Cr Clr Drug Dosing Est GFR ( Amer) Est GFR (Non-Af Amer) BUN/Creatinine Ratio Glucose POC Glucose 164 H Estimat Average Glucose Hemoglobin A1c Lactate Calcium Phosphorus Magnesium Total Bilirubin Direct Bilirubin AST ALT Alkaline Phosphatase Troponin I High Sens B-Natriuretic Peptide Total Protein Albumin Lipase Procalcitonin TSH Urine Color Urine Appearance Urine pH Ur Specific [place] Urine Protein Urine Glucose (UA) Urine Ketones Urine Blood Urine Nitrite Urine Bilirubin Urine Urobilinogen Ur Leukocyte Esterase Urine WBC (Auto) Urine RBC (Auto) U Hyaline Cast (Auto) U Epithel Cells (Auto) Urine Bacteria (Auto) WBC Casts Urine Yeast Nasal Screen MRSA (PCR) Negative Adenovirus (PCR) B. pertussis DNA (PCR) B.parapertussis DNA PCR C. pneumoniae DNA (PCR) Coronavirus OC43 (PCR) Coronavirus HKU1 (PCR) Coronavirus 229E (PCR) SARS-CoV-2 (PCR) Coronavirus NL63 (PCR) Enterobacterales (PCR) Human Metapneumovir PCR Influenza Type A (PCR) Influenza Type B (PCR) M. pneumoniae (PCR) Parainfluenza 1 (PCR) Parainfluenza 2 (PCR) Parainfluenza 3 (PCR) Parainfluenza 4 (PCR) Proteus species (PCR) RSV (PCR) Entero/Rhino (PCR) blaIMP Car res Gene PCR KPC-Carbap Res Gene PCR blaNDM Car Res Gene PCR OXA-48 Carbapenem Resis Gene (PCR) blaVIM Car Res Gene PCR CTX-M Gene Resistance (PCR) Bld Cult ID Panel PCR Diagnostic Findings Chest X-Ray 12/21/23 18:19 XR chest 1V portable CLINICAL HISTORY: Sepsis TECHNIQUE: Single frontal radiograph of the chest was obtained. Comparison: Comparison is made to chest radiograph 03/23/2023 FINDINGS: No lines and tubes are seen. Cardiomegaly is noted. Prominence and cephalization of the vasculature is seen. Airspace opacities in the bilateral lower lungs cannot be excluded. Small bilateral pleural effusions are seen. IMPRESSION: 1. Cardiomegaly and mild pulmonary edema. 2. Small bilateral pleural effusions. 3. Cannot exclude airspace opacities in the bilateral lower lungs. ACT 112: Negative or not required by law. Electronically signed by: Kenneth Lanza M.D. 12/21/2023 7:18 PM Chest CTA 12/21/23 20:13 Exam(s): CTA CHEST IV Amt: 118 cc opti 320 EXAM: CT Angiography Chest With Intravenous Contrast CLINICAL HISTORY: Reason for exam: sob, elevated trop, r/o PE. TECHNIQUE: Axial computed tomographic angiography images of the chest with intravenous contrast. Automated exposure control was utilized for the study. A dose lowering technique was utilized adhering to the principles of ALARA. MIP reconstructed images were created and reviewed. COMPARISON: CT chest angiogram 12/20/2017. FINDINGS: Pulmonary arteries: Heterogeneous opacification of the pulmonary arteries. No definite pulmonary embolism identified. Aorta: No acute findings. No thoracic aortic aneurysm. Lungs: Bilateral lower lobe opacities. Pleural space: Unremarkable. No significant effusion. No pneumothorax. Heart: Severe coronary artery atherosclerotic calcifications. No cardiomegaly. No significant pericardial effusion. No evidence of RV dysfunction. Bones/joints: Degenerative change in the spine. No acute fracture. No dislocation. Soft tissues: Unremarkable. Lymph nodes: Unremarkable. No enlarged lymph nodes. Gallbladder and bile ducts: Cholecystectomy. Upper abdomen: Elevation the left hemidiaphragm. IMPRESSION: 1. Heterogeneous opacification of the pulmonary arteries. No definite pulmonary embolism identified. 2. Bilateral lower lobe opacities. This may represent atelectasis, aspiration, or pneumonia. 3. Severe coronary artery atherosclerotic calcifications. Electronically signed by: Amilcar Justin MD 12/21/23 22:[address] 12/21/23 20:13 Exam(s): CT HEAD Without Contrast EXAM: CT Head Without Intravenous Contrast CLINICAL HISTORY: Reason for exam: confusion. TECHNIQUE: Axial computed tomography images of the head/brain without intravenous contrast. CTDI is mGy and DLP is mGy-cm. Automated exposure control was utilized for the study. A dose lowering technique was utilized adhering to the principles of ALARA. COMPARISON: CT head 03/29/2023. FINDINGS: Brain: Global parenchymal volume loss chronic microvascular ischemic changes. No hemorrhage. Ventricles: No ventriculomegaly. Bones/joints: Unremarkable. No acute fracture. Soft tissues: Unremarkable. Sinuses: Unremarkable as visualized. Mastoid air cells: Unremarkable as visualized. No mastoid effusion. IMPRESSION: 1. No intracranial hemorrhage or other acute intracranial abnormality. 2. Global parenchymal volume loss with chronic microvascular ischemic changes. Electronically signed by: Amilcar Justin MD 12/21/23 22:18 PM Abdomen/Pelvis CT 12/22/23 10:34 CT abd pelvis wo con CLINICAL HISTORY: UTI/sepsis; eval obstructing stone, etc TECHNIQUE: Helical axial images of the abdomen and pelvis were obtained. Automated dose lowering techniques and/or adjustment according to patient size were utilized for this exam. This exam was performed without intravenous contrast. CT DOSE: 1746.61 mGy.cm COMPARISON: Comparison is made to CT abdomen pelvis 01/30/2018 FINDINGS: Lower chest: Bibasilar atelectasis versus scarring is seen. Severe atherosclerotic disease is seen. Liver: Unremarkable. No focal lesions are seen. Gallbladder and biliary tree: Patient is status post cholecystectomy. No intra- or extrahepatic biliary ductal dilation. Pancreas: Unremarkable, no focal lesions. Spleen: Unremarkable. Adrenals: Unremarkable. Kidneys and ureters: Left-sided nephroureterolithiasis is seen with multiple ureteral stones including a 6 mm stone in the mid ureter which may cause mild obstruction. Bladder: Foster catheter is seen. Reproductive organs: Unremarkable. Bowel: Diverticulosis is seen without diverticulitis. The appendix is normal. Lymph nodes Retroperitoneal: Unremarkable. Pelvic: Unremarkable. Mesenteric: Unremarkable. Peritoneum: Normal. Vessels: Unremarkable. Abdominal wall: Unremarkable. Bones: Degenerative changes in the visualized spine. Posterior fixation hardware spans L3-L4. Right femoral nail is seen. IMPRESSION: Likely obstructive left ureteral stone with very mild hydroureteronephrosis. Additional nonobstructive stones are seen. Additional findings as above. ACT 112: Negative or not required by law. Electronically signed by: Kenneth Lanza M.D. 12/22/2023 11:58 AM PG Care Time/CCT Total # of Minutes Spent Total Time Spent with Patient: Total time spent is greater than 50% in coordination of care (as documented) at patient's floor/unit and/or counseling patient: Coding Level of Care Code 09132 SUB INP/OBS CARE 3/50MIN Diagnoses Urinary tract obstruction by kidney stone N20.0; N13.8 Bacteremia R78.81 Acute metabolic encephalopathy G93.41 Pneumonia J18.9 Laterality: bilateral Lung location: lower lobe of lung Pneumonia type: due to unspecified organism Complicated UTI (urinary tract infection) N39.0 Acute and chronic respiratory failure J96.21; J96.22 Respiratory failure complication: hypoxia and hypercapnia Diabetes mellitus type 2, controlled E11.9 Elevated troponin R79.89 History of DVT (deep vein thrombosis) Z86.718 Obesity hypoventilation syndrome E66.2 Subdural hematoma S06.5XAA (4) Pneumonia Laterality: bilateral Lung location: lower lobe of lung Pneumonia type: due to unspecified organism Qualified Code(s): J18.9 - Pneumonia, unspecified organism (6) Acute and chronic respiratory failure Respiratory failure complication: hypoxia and hypercapnia Qualified Code(s): J96.21 - Acute and chronic respiratory failure with hypoxia; J96.22 - Acute and chronic respiratory failure with hypercapnia
--- NOTE | 2023-12-22 13:53 | Pharmacy Report ---
Pharmacy PK ABX Note - Date of Service December 22, 2023 - Assessment and Plan Assessment 83 year old M receiving Vancomycin and Cefepime for treatment of complicated UTI. Pertinent microbiologic data includes: urine culture and 1/4 bottles from blood cultures growing Gram Negative Bacilli. BCID2 PCR has identified this organism as Proteus mirabilis without resistance genes. Day #1 of antimicrobial therapy. Plan Vancomycin * Loading dose: 2750 mg IV x 1 * Maintenance dose: 1000 mg IV every 12 hours * Regimen is predicted to achieve target AUC/MELCHOR of 400-600 mg/L.hr * Level will be ordered should therapy extend beyond 48 hours. Pharmacy will continue to follow and will adjust dose/frequency as necessary. Thank you. Pharmacy has transitioned to AUC monitoring for vancomycin. AUC/MELCHOR is the preferred PK/PD target and is associated with decreased risk of nephrotoxicity compared to traditional trough targets.
--- NOTE | 2023-12-22 14:09 | Urology Consultation ---
Date of Consultation December 22, 2023 Assessment & Plan (1) Complicated UTI (urinary tract infection): (2) Bacteremia: (3) Urinary tract obstruction by kidney stone: 83 yo/M admitted for acute and chronic respiratory failure and UTI/bacteremia; found to have obstructing left ureteral calculi. Pt afebrile with stable vitals Labs todaycreatinine 0.94, WBC 9.5, hemoglobin 15.1 Urine and blood cultures are preliminary showing gram-negative bacilli Continue with broad-spectrum antibiotics and narrow per sensitivity data when available CT abdomen pelvis notable for multiple left ureteral stones with resulting mild hydroureteronephrosis Reviewed and discussed imaging with patient and son Discussed concern with obstructing stones and UTI/bacteremia Recommend emergent left ureteral stent placement Discussed definitive stone treatment would be at a later date after acute infection has been treated Ureteral stents were discussed in detail Patient and son are agreeable to the plan, all questions answered Proceed to the OR emergently for cystoscopy, left retrograde pyelogram and left ureteral stent placement Risks and benefits of procedure to be reviewed with patient by Dr. Willett Continue with cefepime preoperatively Keep NPO for procedure Urology will follow Supervising Physician Co-Signing Physician Notes Agree with above, plan for emergent cysto, left ureteral stent. Unfortunately, he is an extremely high risk patient in a difficult situation. History of Present Illness Reason for Consultation: Obstructing left ureteral stone, septicemia Requesting Physician: Dr. Elliott Attending Physician: Pineda Elliott MD History of Present Illness This is an 83-year-old male with past medical history of type 2 diabetes, thrombocytopenia, subdural hematoma, morbid obesity, hemochromatosis, DVT, chronic respiratory failure and BPH who presented to the emergency department on 12/21/2023 with several week history of worsening shortness of breath and recent fever/ill feelings and was admitted for acute and chronic respiratory failure, altered mental status and suspected urinary tract infection. On arrival, he was afebrile, tachycardic and hypertensive; O2 saturation in the low 80s. He was started on CPAP in the emergency department. Lab work showed creatinine 1.06, WBC 6.8, hemoglobin 15.0. Urinalysis showed turbid urine, trace protein, 1+ glucose, 3+ blood, positive nitrates, 3+ leukocyte esterase, >30 WBC 10-30 RBC, 2+ bacteria. Urine and blood cultures obtained. Preliminary urine and blood culture showing gram-negative bacilli. He underwent CT A/P for further workup. CT imaging reviewed and shows multiple left ureteral stones causing mild hydroureteronephrosis; additional nonobstructing stones are seen. Urology is consulted for obstructing left ureteral stone and septicemia. Patient seen and examined in the emergency department. Son present. Patient awake and resting in bed, no apparent distress. Denies flank or abdominal pain. Patient and son report intermittent fever/chills and nausea/vomiting over the last few days at home. Reports some dysuria, no hematuria. No prior history of kidney stones. Allergies Allergy/AdvReac Type Severity Reaction Status Date / Time No Known Allergies Allergy Unverified 03/26/23 10:15 Home Medications Medication Instructions Recorded Confirmed Type aspirin 81 mg tablet,delayed 81 mg PO DAILY 10/27/19 12/21/23 History release atorvastatin 40 mg tablet 20 mg PO HS 10/27/19 12/21/23 History multivitamin 1 tab PO DAILY 10/27/19 12/21/23 History tamsulosin 0.4 mg capsule 0.4 mg PO DAILY 10/27/19 12/21/23 History hydroxyzine HCl 10 mg tablet 10 mg PO QID PRN Anxiety 03/26/23 12/21/23 History metformin 500 mg tablet 500 mg PO BID 03/26/23 12/21/23 History omega 7-lam-dua-fish oil 1,000 mg 1 cap PO DAILY 03/26/23 12/21/23 History (120 mg-180 mg) capsule (Fish Oil) pregabalin 75 mg capsule 75 mg PO BID 03/26/23 12/21/23 History venlafaxine 150 mg 150 mg PO DAILY 03/26/23 12/21/23 History capsule,extended release 24 hr hydrochlorothiazide 25 mg tablet 25 mg PO DAILY #90 tabs 04/09/23 12/21/23 Rx Patient History Medical History History of DVT (deep vein thrombosis) Acquired lymphedema Encounter for pre-operative examination Thrombocytopenia Subdural hematoma S/P fall 03/23/2023 CT Head with chronic hematoma vs hygroma Morbid obesity with BMI of 45.0-49.9, adult Lumbago with sciatica, right side Neuropathy Olecranon bursitis of left elbow BPH (benign prostatic hyperplasia) Hemochromatosis Depression with anxiety Arthritis Anxiety DVT (deep venous thrombosis) Provoked October 2017 Chronic respiratory failure with hypoxia, on home oxygen therapy Obesity hypoventilation syndrome 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 Osteoarthritis Hypertension Dyslipidemia Gout Surgical History Hx of knee surgery 1989 H/O umbilical hernia repair Hx of cholecystectomy Right wrist fracture "S/P repair" Fracture of right hip "S/P repair" Family History Mother Lung cancer Lung disease Brother Lung cancer Lung disease Denies family history of Ovarian cancer Prostate cancer Myocardial infarction Breast cancer Colorectal cancer Social History Smoking Status: Never smoker Second Hand Exposure: No; Do You Dip or Chew Tobacco: No; Hx Alcohol Use: No Hx Substance Use: No Preferred Language: Tunisian Communication Ability: Effective Visual Impairment: No Limitations Hearing Ability: Normal Ticket Puller Required: No Beliefs That Will Affect Care: None marital status: / Current Living Situation: Family and Other Current Living Situation Comment: Live with son current occupational status: retired 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 How many Children do You have: 2 Other Information That Helps Us Care for You: No Feels Safe at Home: Yes Safety Concerns: Feels Safe At This Time Childhood Exposure to Second-Hand Smoke: No Diet: regular caffeine: Yes during the past year weight has: remained stable Dental Care, Regularly: No Physical Activity Frequency: Daily Seatbelt Use: always Sunscreen Use: No Assistive Devices: Cane, CPAP, Denture - Lower and Walker Review of Systems Review of Systems: All systems reviewed & are unremarkable except as noted in HPI & below Physical Exam Constitutional: + ill appearing and + morbidly obese; no acute distress Respiratory: no respiratory distress oxymask in place Cardiovascular: Rate/Rhythm: regular rate Extremities: + pedal edema Gastrointestinal (Abdomen): Inspection/Auscultation: abdomen not distended Musculoskeletal: Head/Neck/Chest: normocephalic Neurologic: awake Psychiatric: Orientation: alert and oriented x 3 Genitourinary: Foster patent and draining clear yellow urine Results & Data Vital Signs (Past 12 Hours) Vital Signs Temp Pulse Pulse Resp BP Pulse Ox O2 Del Method 12/22/23 11:07 85 21 134/71 94 CPAP 12/22/23 07:25 86 12/22/23 07:14 91 H 21 136/86 96 CPAP 12/22/23 07:10 90 18 96 12/22/23 04:21 37.0 C 100 H 20 128/86 95 BiPAP 12/22/23 02:50 98 H 20 95 12/22/23 02:25 101 H FiO2 12/22/23 11:07 12/22/23 07:25 12/22/23 07:14 12/22/23 07:10 40 12/22/23 04:21 12/22/23 02:50 50 12/22/23 02:25 PG Care Time/CCT Total # of Minutes Spent Total Time Spent with Patient: Total time spent is greater than 50% in coordination of care (as documented) at patient's floor/unit and/or counseling patient: Coding Level of Care Code 42727 INT INP/OBS CARE MIN Diagnoses Complicated UTI (urinary tract infection) N39.0 Bacteremia R78.81 Urinary tract obstruction by kidney stone N20.0; N13.8
[2023-12-22] MEDS ORDERED: fentaNYL citrate PF 100 MCG/2 ML VIAL ONE (15:00)
[2023-12-22] MEDS ORDERED: PROPOFOL IV EMULSION 10 MG/ML 20 ML VIAL IV ONE (15:00)
[2023-12-22] MEDS ORDERED: ONDANSETRON INJ 2 MG/ML 2 ML VIAL ONE (15:00)
[2023-12-22] MEDS ORDERED: DEXAMETHASONE SOD INJ 4 MG/ML VIAL ONE (15:00)
[2023-12-22] MEDS ORDERED: LIDOCAINE 2% 2 ML VIAL/AMP(20MG/ML) INFIL ONE (15:00)
--- NOTE | 2023-12-22 15:20 | Anesthesiology Consultation ---
Date of Service December 22, 2023 Assessment & Plan Chart Review Chart Review: Acceptable Risk for Surgery and Patient NOT seen in Pre Admission Testing Consults Requested none ASA ASA4 Proposed Anesthesia Anesthesia Type: MAC History Surgery Operation Date: 12/22/23 09:30 Proposed Procedures p Cystoscopy, Retrograde Pyelogram, Left Ureteral Stent Placement - Pb Willett MD Height/Weight Height: 6 ft 2 in Weight: 129.4 kg Allergies Allergy/AdvReac Type Severity Reaction Status Date / Time No Known Allergies Allergy Unverified 03/26/23 10:15 Medications Home Medications Medication Instructions Recorded Confirmed Last Taken aspirin 81 mg tablet,delayed 81 mg PO DAILY 10/27/19 12/21/23 03/25/23 release atorvastatin 40 mg tablet 20 mg PO HS 10/27/19 12/21/23 03/25/23 multivitamin 1 tab PO DAILY 10/27/19 12/21/23 03/25/23 tamsulosin 0.4 mg capsule 0.4 mg PO DAILY 10/27/19 12/21/23 03/25/23 hydroxyzine HCl 10 mg tablet 10 mg PO QID PRN Anxiety 03/26/23 12/21/23 03/25/23 metformin 500 mg tablet 500 mg PO BID 03/26/23 12/21/23 03/25/23 omega 6-ehr-nbv-fish oil 1,000 mg 1 cap PO DAILY 03/26/23 12/21/23 03/25/23 (120 mg-180 mg) capsule (Fish Oil) pregabalin 75 mg capsule 75 mg PO BID 03/26/23 12/21/23 03/25/23 venlafaxine 150 mg 150 mg PO DAILY 03/26/23 12/21/23 03/25/23 capsule,extended release 24 hr hydrochlorothiazide 25 mg tablet 25 mg PO DAILY #90 tabs 04/09/23 12/21/23 Unknown Active Medications Generic Name Dose Route Start Last Admin Trade Name Freq PRN Reason Stop Dose Admin Aspirin 81 mg 12/22/23 09:00 12/22/23 08:44 Aspirin 81 Mg Ectab PO 01/21/24 08:59 81 mg DAILY ELIZABETH Administration Enoxaparin Sodium 40 mg 12/22/23 09:00 12/22/23 08:46 Enoxaparin Inj 40 Mg/0.4 Ml Syr SQ 01/21/24 08:59 40 mg Q24H ELIZABETH Administration Hydrochlorothiazide 25 mg 12/22/23 09:00 12/22/23 08:45 Hydrochlorothiazide 25 Mg Tab PO 01/21/24 08:59 25 mg DAILY ELIZABETH Administration Cefepime HCl 2,000 mg/ Syringe 20 mls @ 5 mls/min 12/22/23 09:00 12/22/23 10:18 IV 01/01/24 08:59 5 mls/min Q12H ELIZABETH Administration Protocol Vancomycin HCl 1,000 mg/ 270 mls @ 200 mls/hr 12/22/23 10:00 12/22/23 11:03 Sodium Chloride IV 01/01/24 09:59 Infused Q12H ELIZABETH Infusion Insulin Aspart 0 units 12/22/23 07:30 12/22/23 13:10 Insulin Aspart Per Unit Charge SC 01/21/24 07:29 1 units ACHS ELIZABETH Administration Insulin Glargine 8 units 12/22/23 09:00 12/22/23 10:07 Lantus Per Unit Charge SQ 01/21/24 08:59 8 units BID ELIZABETH Administration Pregabalin 75 mg 12/22/23 09:00 12/22/23 08:45 Pregabalin 75 Mg Cap PO 01/21/24 08:59 75 mg BID ELIZABETH Administration Tamsulosin HCl 0.4 mg 12/22/23 09:00 12/22/23 08:45 Tamsulosin Hcl 0.4 Mg Cap PO 01/21/24 08:59 0.4 mg DAILY ELIZABETH Administration Venlafaxine HCl 150 mg 12/22/23 09:00 12/22/23 08:45 Venlafaxine Hcl Xr 150 Mg Capxr PO 01/21/24 08:59 150 mg DAILY ELIZABETH Administration Past Medical History Medical History History of DVT (deep vein thrombosis) Acquired lymphedema Encounter for pre-operative examination Thrombocytopenia Subdural hematoma S/P fall 03/23/2023 CT Head with chronic hematoma vs hygroma Morbid obesity with BMI of 45.0-49.9, adult Lumbago with sciatica, right side Neuropathy Olecranon bursitis of left elbow BPH (benign prostatic hyperplasia) Hemochromatosis Depression with anxiety Arthritis Anxiety DVT (deep venous thrombosis) Provoked October 2017 Chronic respiratory failure with hypoxia, on home oxygen therapy Obesity hypoventilation syndrome 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 Osteoarthritis Hypertension Dyslipidemia Gout Past Family History Family History Mother Lung cancer Lung disease Brother Lung cancer Lung disease Denies family history of Ovarian cancer Prostate cancer Myocardial infarction Breast cancer Colorectal cancer Past Surgical History Surgical History Hx of knee surgery 1989 H/O umbilical hernia repair Hx of cholecystectomy Right wrist fracture "S/P repair" Fracture of right hip "S/P repair" Social History Smoking Status: Never smoker Do You Dip or Chew Tobacco: No Hx Alcohol Use: No Alcohol type: beer alcohol intake frequency: holidays/special occasions only Hx Substance Use: No Physical Exam Vital Signs Last Vital Signs Temp 37.0 C 12/22/23 04:21 Pulse 97 H 12/22/23 14:39 Resp 23 12/22/23 14:39 BP 109/64 12/22/23 14:39 Pulse Ox 93 12/22/23 14:39 O2 Del Method Oxymask 12/22/23 14:50 O2 Flow Rate 6 12/22/23 14:50 FiO2 40 12/22/23 07:10 Constitutional + ill appearing and + morbidly obese; no acute distress Respiratory no respiratory distress Cardiovascular Rate/Rhythm: regular rate Extremities: + pedal edema Gastrointestinal (Abdomen) Inspection/Auscultation: abdomen not distended Musculoskeletal Head/Neck/Chest: normocephalic Neurologic awake Psychiatric Orientation: alert and oriented x 3 Testing Laboratory Results 12/22/23 05:59 12/22/23 05:59 PT 12.0 Seconds (9.0-12.0) 12/21/23 20:38 INR 1.1 (0.9-1.1) 12/21/23 20:38 Hemoglobin A1c 6.4 % (4.5-5.6) H 12/22/23 05:59 Urine Color Dark Yellow 12/21/23 19:15 Urine Appearance Turbid (Clear) A 12/21/23 19:15 Urine pH 8.0 (4.5-7.5) H 12/21/23 19:15 Ur Specific [place] 1.018 (1.000-1.030) 12/21/23 19:15 Urine Protein Trace (Negative) H 12/21/23 19:15 Urine Glucose (UA) 1+ (Negative) H 12/21/23 19:15 Urine Ketones Negative (Negative) 12/21/23 19:15 Urine Nitrite Positive (Negative) A 12/21/23 19:15 Ur Leukocyte Esterase 3+ (Negative) H 12/21/23 19:15 Urine WBC (Auto) >30 /hpf (0-5) H 12/21/23 19:15 Urine RBC (Auto) 10-30 /hpf (0-4) H 12/21/23 19:15 U Hyaline Cast (Auto) 1-5 /lpf (0-5) 12/21/23 19:15 U Epithel Cells (Auto) 0-5 /lpf (0-5) 12/21/23 19:15 Urine Bacteria (Auto) 2+ (Negative) H 12/21/23 19:15 12/21/23 19:21 Anaerobic Blood Culture - Preliminary Blood Gram negative bacilli 12/21/23 19:15 Urine Culture - Preliminary Urine,Straight Cath Gram negative bacilli 12/22/23 12/22/23 11:33 07:16 POC Glucose 164 H 164 H
[2023-12-22] MEDS: DIATRIZOATE MEGLUMINE 30% 100ML VIAL INSTIL ONE (16:08)
--- NOTE | 2023-12-22 16:16 | Operative Report ---
PG Post Operative Report Pre & Post Diagnosis Operation Date: 12/22/23 09:30 Pre-Op Diagnosis: Left ureteral stone, urinary tract infection Post-Op Diagnosis: Left ureteral stone, urinary tract infection I identified the patient and participated in the time-out.: Yes Procedure Operation Date: 12/22/23 09:30 Actual Procedures p Cystoscopy, Retrograde Pyelogram, Left Ureteral Stent Placement(Left) - Pb Willett MD Surgeon Pb Willett MD Access Analyst none Estimated Blood Loss 0 Findings Consistent with Post-Op Diagnosis Specimens none Description of Procedure The patient was identified in the preoperative holding area, appropriate informed consents were reviewed and completed and the patient was transferred to the operative suite. Upon arrival, appropriate antibiotics and anesthesia were administered and the patient was placed in dorsal lithotomy position and prepped and draped in sterile fashion. To begin the case I passed a 19.5 Cypriot cystoscope with 30 degree lens. Inspection revealed mathis urethral stricturing but I was able to navigate the scope through this urethra. His bulb did not have any discrete strictures but his prostate was enlarged with a very high bladder neck which was somewhat challenging to navigate the scope over. Upon entry into his bladder he has irritation across his bladder and some hematuria. He has had a catheter in prior to this procedure and I suspect this has prompted some of this. He has no tumors that I could identify. It was extremely challenging to identify his ureteral orifices secondary to his anatomy and the blood in the urine. I ultimately switched to a 21 Cypriot cystoscope which allowed some slightly better flow and better visualization. I had to use both a 30 and 70 degree lens to definitively identify the UO, however after identifying I was able to work through a 30 degree lens. From there, there still were further challenges as I was able to advance a wire approximately 5 cm into the ureter and then met obstruction. I performed retrograde pyelogram which showed tortuosity and then an obstruction at this level. Ultimately I was able to navigate a Glidewire past the obstruction and to the level of the kidney. I advanced a 5 Cypriot open-ended catheter over the wire and exchanged the Glidewire for a sensor wire and was subsequently able to place a 6 Cypriot by 26 cm double-J stent. It was appropriately positioned in the kidney as well as the bladder. I withdrew my cystoscope and placed a new 18 Cypriot catheter. He was reversed of anesthesia and taken to the recovery room in stable condition. He remains quite acutely ill and will be monitored in the PCU/telemetry. I attest to the content of the Intraoperative Record and any orders documented therein. Any exceptions are noted below.
--- NOTE | 2023-12-22 16:44 | Fluoroscopy Report ---
FL KUB CLINICAL HISTORY: LEFT STENT COMPARISON STUDY: CT of the abdomen and pelvis performed earlier today. FLUOROSCOPY TIME: 40.9 seconds. Ka, r: 26.12 mGy FLUOROSCOPIC IMAGES: 1. FINDINGS: Fluoroscopy was provided during left retrograde exam with left ureteral stent placement. Pr oximal aspect of the left ureteral stent projects over the left collecting system. IMPRESSION: Fluoroscopy provided during left retrograde exam with left ureteral stent placement. ACT 112: Negative or not required by law. Electronically signed by: Charlie Yeager M.D. 12/22/2023 4:43 PM
--- NOTE | 2023-12-22 16:52 | Anesthesiology Progress Note ---
Date of Service December 22, 2023 Anesthesia Post Procedure Vital Signs Vital Signs: Temp Pulse Pulse Pulse Resp BP BP 12/22/23 16:45 96 H 19 127/68 12/22/23 16:35 96 H 21 130/70 12/22/23 16:25 104 H 20 157/78 H 12/22/23 16:16 37.7 C H 96 H 17 147/81 H 12/22/23 15:17 38.3 C H 97 H 22 115/64 12/22/23 14:50 12/22/23 14:39 97 H 23 109/64 12/22/23 11:07 85 21 134/71 12/22/23 07:25 86 12/22/23 07:14 91 H 21 136/86 12/22/23 07:10 90 18 12/22/23 04:21 37.0 C 100 H 20 128/86 12/22/23 02:50 98 H 20 12/22/23 02:25 101 H 12/22/23 01:36 12/22/23 01:34 12/22/23 01:30 36.8 C 102 H 20 150/80 H 12/21/23 23:28 12/21/23 23:20 100 H 17 12/21/23 23:15 135/67 12/21/23 23:15 99 H 27 H 12/21/23 23:10 99 H 23 12/21/23 23:00 97 H 19 126/68 12/21/23 22:55 97 H 12/21/23 22:46 102 H 15 154/113 H 12/21/23 22:39 103 H 19 12/21/23 22:30 103 H 17 173/91 H 12/21/23 22:00 99 H 26 H 149/101 H 12/21/23 21:45 100 H 29 H 174/95 H 12/21/23 21:40 102 H 21 179/119 H 12/21/23 21:16 92 H 19 128/62 12/21/23 21:00 89 21 125/79 12/21/23 20:45 89 21 151/72 H 12/21/23 20:30 144/66 H 12/21/23 20:30 90 16 144/66 H 12/21/23 20:00 92 H 23 154/74 H 12/21/23 19:13 102 H 19 12/21/23 19:06 102 H 21 12/21/23 19:00 101 H 25 H 143/70 H 12/21/23 18:59 103 H 12/21/23 18:44 26 H 12/21/23 18:44 12/21/23 18:44 37 C 103 H 26 H 143/70 H Pulse Ox O2 Del Method O2 Flow Rate FiO2 12/22/23 16:45 97 Non-rebreather 9 12/22/23 16:35 97 Non-rebreather 15 12/22/23 16:25 97 Non-rebreather 15 12/22/23 16:16 96 Non-rebreather 15 12/22/23 15:17 95 Oxymask 6 12/22/23 14:50 Oxymask 6 12/22/23 14:39 93 Oxymask 6 12/22/23 11:07 94 CPAP 12/22/23 07:25 12/22/23 07:14 96 CPAP 12/22/23 07:10 96 40 12/22/23 04:21 95 BiPAP 12/22/23 02:50 95 50 12/22/23 02:25 12/22/23 01:36 CPAP 12/22/23 01:34 95 CPAP 12/22/23 01:30 94 CPAP 12/21/23 23:28 95 Non-rebreather 6 12/21/23 23:20 95 12/21/23 23:15 12/21/23 23:15 95 12/21/23 23:10 95 12/21/23 23:00 95 12/21/23 22:55 12/21/23 22:46 97 12/21/23 22:39 94 50 12/21/23 22:30 94 12/21/23 22:00 95 12/21/23 21:45 94 12/21/23 21:40 90 12/21/23 21:16 98 12/21/23 21:00 96 12/21/23 20:45 95 12/21/23 20:30 12/21/23 20:30 94 12/21/23 20:00 92 CPAP 12/21/23 19:13 95 BiPAP 60 12/21/23 19:06 94 60 12/21/23 19:00 95 CPAP 12/21/23 18:59 12/21/23 18:44 95 Non-rebreather 10 12/21/23 18:44 96 Non-rebreather 10 12/21/23 18:44 96 Non-rebreather 10 Transfer of Care Handoff Completed per policy Notes Mental Status: alert / awake / arousable Patient Amnestic to Procedure: Yes Nausea / Vomiting: adequately controlled Pain: adequately controlled Airway Patency, RR, SpO2: stable & adequate BP & HR: stable & adequate Hydration State: stable & adequate Anesthetic Complications: no major complications apparent and Pt Satisfied with anesthetic care
[2023-12-22] MEDS ORDERED: VANCOMYCIN HCL 2,000 MG in SODIUM CHLORIDE 0.9% 500 ML IV SCH (18:00)
[2023-12-22] MEDS: ACETAMINOPHEN 325 MG TAB PO PRN (18:32)
[2023-12-22] MEDS: ATORVASTATIN 20 MG TAB PO SCH (19:47)
--- NOTE | 2023-12-23 04:25 | Communication Note ---
Notified by nursing about concern for urinary retention. Foster catheter in place, nursing attempted to irrigate and still no urinary flow. Bladder scan with over 500cc. Spoke with Dr. Willett and plan to replace catheter. Nursing replaced catheter and 625mL urine drained. Date of Service: December 23, 2023
[2023-12-23 06:54] LABS: Basophils # (auto) 0.02 K/uL (0.00-0.20); Basophils % (auto) 0.2 %; Hematocrit (blood only) 46.1 % (42.0-52.0); Hemoglobin 14.8 g/dl (14.0-18.0); Immature Granulocytes # (auto) 0.05 K/uL (0.01-0.20); Immature Granulocytes % (auto) 0.5 %; Lymphocytes # (auto) 0.58 K/uL (1.20-3.40); Lymphocytes % (auto) 6.3 %; Mean Corpuscular Hemoglobin 32.5 pg (25.0-34.0); Mean Corpuscular Hgb Conc 32.1 g/dL (32.0-36.0); Mean Corpuscular Volume 101.3 fL (80.0-100.0); Mean Platelet Volume 11.5 fL (9.4-12.4); Monocytes # (auto) 0.89 K/uL (0.11-0.59); Monocytes % (auto) 9.7 %; Neutrophils # (auto) 7.64 K/uL (1.40-6.50); Neutrophils % (auto) 83.3 %; Platelet Count 99 K/uL (130-400); RDW Coefficient of Variation 13.7 % (11.5-14.5); RDW Standard Deviation 51.7 fL (36.4-46.3); Red Blood Count 4.55 M/uL (4.70-6.10); White Blood Count 9.18 K/ul (4.8-10.8)
[2023-12-23 07:07] LABS: BUN Creatinine Ratio 31.2 (10-20); Calcium 8.6 mg/dl (8.6-10.3); Creatinine Clr Calc Pharmacy 92.2 ml/min; Est GFR (African American) 87.1 ml/min; Est GFR (Non-African American) 75.1 ml/min; Magnesium 1.9 mg/dl (1.7-2.4); Potassium 4.1 mmol/L (3.5-5.1)
--- NOTE | 2023-12-23 08:57 | Urology Progress Note ---
Date of Service December 23, 2023 Assessment & Plan (1) Urinary tract obstruction by kidney stone: (2) Bacteremia: (3) Complicated UTI (urinary tract infection): Plan: - Follow-up of left ureteral stone, UTI/bacteremia - Pt POD#1 s/p emergent left ureteral stent placement - Afebrile at present (Tmax 38.3 yesterday afternoon), vitals stable on supplemental oxygen - Lab work reviewed - creatinine 0.93, WBC 9.18 - Urine culture w/ Proteus - Blood cultures 1/4 with Gram negative bacilli; repeat cultures collected and pending - He was transitioned to IV Ciprofloxacin - Tolerating left ureteral stent without bother - Discussed definitive stone treatment after infection has resolved - Catheter was replaced overnight and is draining appropriately - Recommend maintain catheter for now to maximize drainage, can do voiding trial prior to discharge - Recommend d/c with course of appropriate PO antibiotics for complicated UTI and Tamsulosin for stent management - Expected clinical course reviewed, all questions answered - Will arrange outpatient follow-up with our service to discuss stone treatment - will sign off Admission and Anticipated Discharge Date Admission Date: December 21, 2023 Subjective Patient seen and examined at bedside Foster catheter stopped draining overnight, so it was replaced by nursing Foster patent and draining maroon-tinged urine this morning He denies flank or abdominal pain Denies fever, chills, nausea or vomiting at present Review of Systems Constitutional: as per Subjective / HPI Gastrointestinal: as per Subjective / HPI Genitourinary: + as per Subjective / HPI Physical Exam Constitutional: + morbidly obese; no acute distress Respiratory: no respiratory distress supplemental oxygen in place Musculoskeletal: Head/Neck/Chest: normocephalic Neurologic: awake Psychiatric: Orientation: alert and oriented x 3 Genitourinary: Foster patent and draining maroon tinged urine Results & Data Vital Signs (Past 12 Hours) Vital Signs Temp Pulse Pulse Resp BP Pulse Ox O2 Del Method 12/23/23 07:37 36.6 C 80 16 114/65 95 Nasal Cannula 12/23/23 03:13 36.4 C L 81 17 111/78 98 Oxymask 12/22/23 23:23 99 H 12/22/23 23:19 83 19 94 12/22/23 22:53 36.8 C 90 18 94 Oxymask O2 Flow Rate FiO2 12/23/23 07:37 4 12/23/23 03:13 6 12/22/23 23:23 12/22/23 23:19 40 12/22/23 22:53 8.0 PG Care Time/CCT Total # of Minutes Spent Total Time Spent with Patient: Total time spent is greater than 50% in coordination of care (as documented) at patient's floor/unit and/or counseling patient: Coding Level of Care Code 69555 SUB INP/OBS CARE 11/19MIN Diagnoses Urinary tract obstruction by kidney stone N20.0; N13.8 Bacteremia R78.81 Complicated UTI (urinary tract infection) N39.0
[2023-12-23] MEDS: CIPROFLOXACIN / D5W 400 MG/200 ML BAG IV SCH (10:04)
--- NOTE | 2023-12-23 13:23 | Hospitalist Progress Note ---
Date of Service December 23, 2023 Assessment & Plan (1) Urinary tract obstruction by kidney stone: Plan: POD #1 s/p cystoscopy with deployment of L ureteral stent by Dr Willett for left-sided mid-ureteral stone Creatinine remains stable Small in place - replaced overnight due to clots, now functioning well and draining well Cont abx for UTI / bacteremia If urine clears nicely next few days potentially could perform voiding trial later in the stay (2) Bacteremia: Plan: 2nd to GNR - likely proteus source - urinary tract repeat blood cx's x 2 dispatched today cont IV abx - can d/c vanco, can d/c cefepime --> change to levaquin 750mg IV daily this will cover his lungs, urine, and blood f/u tomorrow on all culture results (3) Acute metabolic encephalopathy: Plan: 2nd to pneumonia/UTI/obstructing kidney stone/bacteremia improved with abx, supportive care, L ureteral stent placement, etc (4) Pneumonia: Plan: b/l lower lobes stop cefepime & vanco change to levaquin IV wean O2 as tolerated (5) Complicated UTI (urinary tract infection): Plan: Proteus UTI in the setting of an obstructing kidney stone on left -- see above (6) Acute and chronic respiratory failure: Plan: Chest CTA - no PE, probable b/l lower lobe pneumonia Respiratory BioFire negative acute resp failure - 2nd to pneumonia; ?decompensated diastolic CHF? chronic resp failure - OHS/ABDULLAHI; son reports he does NOT use daytime O2; he is on CPAP at night only will need to reassess his o2 needs as hospitalization goes on (7) Diabetes mellitus type 2, controlled: Plan: Hba1c 6.4% this admission hold metformin lantus-novolog BSGs ac/hs (8) Elevated troponin: Plan: Peak troponin 184.5 Likely myocardial demand ischemia in the setting of bacteremia/UTI/obstructing kidney stone on left No evidence of ACS Echo had been ordered but apparently he declined having it done Will re-attempt tomorrow (9) History of DVT (deep vein thrombosis): Plan: Provoked event - 2018 Not currently on anticoagulation In light of chronic edema consider dopplers to r/o a new DVT (10) Obesity hypoventilation syndrome: Plan: Patient reports he is normally on CPAP at night Son to bring home unit from home (11) Subdural hematoma: Plan: previous history of - 2022 (12) Thrombocytopenia: Plan: likely 2nd to bacteremia repeat level am (13) BPH (benign prostatic hyperplasia): Plan: cont flomax has small in place at this time (14) Hypertension: Plan: hold HCTZ he may need IV lasix again Plan DVT proph - lovenox daily as long as H/H remain stable and hematuria clears order PT/OT son updated at bedside appreciate urology assistance Admission and Anticipated Discharge Date Admission Date: December 21, 2023 Subjective had issues with small obstruction overnight from clots small removed; new small placed, draining seaman colored urine since patient "feels much better" more energy less confusion no dyspnea at rest denies any back, abdominal, or suprapubic pain son at bedside during the visit tele wnl overnight Review of Systems Review of Systems: gen - no fevers; appetite remains poor cv - no cp, no orthopnea pulm - ongoing cough but denies dyspnea at rest Physical Exam Physical Exam: gen - obese, NAD, looks better than yesterday mouth - MMM neck - no JVD heart - RRR, s1 s2, no murmur lungs - decreased BS bases, minimal rales bases, CTA b/l apices, no wheeze abd - soft NT ND BS+; no flank tenderness to palpation b/l ext - <1+ edema b/l, pulses 2+ b/l psych - much more awake/alert today Results & Data Results & Data Vital Signs (Past 12 Hours) Vital Signs Temp Pulse Resp BP Pulse Ox O2 Del Method O2 Flow Rate 12/23/23 11:37 36.6 C 102 H 19 111/68 91 Nasal Cannula 4 12/23/23 07:37 36.6 C 80 16 114/65 95 Nasal Cannula 4 12/23/23 07:26 Nasal Cannula 4 12/23/23 03:13 36.4 C L 81 17 111/78 98 Oxymask 6 Laboratory Results Laboratory Results - last 24 hr 12/23/23 12/23/23 12/23/23 06:28 07:34 11:35 WBC 9.18 RBC 4.55 L Hgb 14.8 Hct 46.1 MCV 101.3 H MCH 32.5 MCHC 32.1 RDW Std Deviation 51.7 H RDW Coeff of Jessica 13.7 Plt Count 99 L MPV 11.5 Immature Gran % (Auto) 0.5 Neut % (Auto) 83.3 Lymph % (Auto) 6.3 [place]cock % (Auto) 9.7 Eos % (Auto) 0.0 Baso % (Auto) 0.2 Neut # (Auto) 7.64 H Lymph # (Auto) 0.58 L [place]cock # (Auto) 0.89 H Eos # (Auto) 0.00 Baso # (Auto) 0.02 Immature Gran # (Auto) 0.05 Sodium 135 L Potassium 4.1 Chloride 96 L Carbon Dioxide 34 H Anion Gap 5 BUN 29 H Creatinine 0.93 Est Cr Clr Drug Dosing 92.2 Est GFR ( Amer) 87.1 Est GFR (Non-Af Amer) 75.1 BUN/Creatinine Ratio 31.2 H Glucose 148 H POC Glucose 136 H 132 H Calcium 8.6 Magnesium 1.9 12/23/23 12/23/23 16:24 20:38 WBC RBC Hgb Hct MCV MCH MCHC RDW Std Deviation RDW Coeff of Jessica Plt Count MPV Immature Gran % (Auto) Neut % (Auto) Lymph % (Auto) Glasscock % (Auto) Eos % (Auto) Baso % (Auto) Neut # (Auto) Lymph # (Auto) [place]cock # (Auto) Eos # (Auto) Baso # (Auto) Immature Gran # (Auto) Sodium Potassium Chloride Carbon Dioxide Anion Gap BUN Creatinine Est Cr Clr Drug Dosing Est GFR ( Amer) Est GFR (Non-Af Amer) BUN/Creatinine Ratio Glucose POC Glucose 106 H 105 H Calcium Magnesium Diagnostic Findings Microbiology 12/21/23 19:21 Blood Aerobic Blood Culture - Preliminary No growth in Aerobic bottle after 48 hours. 12/21/23 19:21 Blood Anaerobic Blood Culture - Preliminary Gram negative bacilli 12/21/23 18:40 Blood Aerobic Blood Culture - Preliminary No growth in Aerobic bottle after 48 hours. 12/21/23 18:40 Blood Anaerobic Blood Culture - Preliminary No growth in Anaerobic bottle after 48 hours. 12/21/23 19:15 Urine,Straight Cath Urine Culture - Final Proteus mirabilis PG Care Time/CCT Total # of Minutes Spent Total Time Spent with Patient: Total time spent is greater than 50% in coordination of care (as documented) at patient's floor/unit and/or counseling patient: Coding Level of Care Code 40568 SUB INP/OBS CARE 2/35MIN Diagnoses Urinary tract obstruction by kidney stone N20.0; N13.8 Bacteremia R78.81 Acute metabolic encephalopathy G93.41 Pneumonia J18.9 Laterality: bilateral Lung location: lower lobe of lung Pneumonia type: due to unspecified organism Complicated UTI (urinary tract infection) N39.0 Acute and chronic respiratory failure J96.21; J96.22 Respiratory failure complication: hypoxia and hypercapnia Diabetes mellitus type 2, controlled E11.9 Elevated troponin R79.89 History of DVT (deep vein thrombosis) Z86.718 Obesity hypoventilation syndrome E66.2 Subdural hematoma S06.5XAA Thrombocytopenia D69.6 BPH (benign prostatic hyperplasia) N40.0 Hypertension I10 (4) Pneumonia Laterality: bilateral Lung location: lower lobe of lung Pneumonia type: due to unspecified organism Qualified Code(s): J18.9 - Pneumonia, unspecified organism (6) Acute and chronic respiratory failure Respiratory failure complication: hypoxia and hypercapnia Qualified Code(s): J96.21 - Acute and chronic respiratory failure with hypoxia; J96.22 - Acute and chronic respiratory failure with hypercapnia
[2023-12-23] MEDS: levoFLOXacin/D5W 750 MG/150 ML BAG IV SCH (20:42)
[2023-12-24 07:15] LABS: Basophils # (auto) 0.03 K/uL (0.00-0.20); Basophils % (auto) 0.4 %; Eosinophils % (auto) 1.5 %; Hematocrit (blood only) 41.8 % (42.0-52.0); Hemoglobin 13.7 g/dl (14.0-18.0); Immature Granulocytes # (auto) 0.01 K/uL (0.01-0.20); Immature Granulocytes % (auto) 0.1 %; Lymphocytes # (auto) 0.78 K/uL (1.20-3.40); Lymphocytes % (auto) 11.7 %; Mean Corpuscular Hemoglobin 32.7 pg (25.0-34.0); Mean Corpuscular Hgb Conc 32.8 g/dL (32.0-36.0); Mean Corpuscular Volume 99.8 fL (80.0-100.0); Monocytes # (auto) 1.12 K/uL (0.11-0.59); Monocytes % (auto) 16.7 %; Neutrophils # (auto) 4.65 K/uL (1.40-6.50); Neutrophils % (auto) 69.6 %; Platelet Count 101 K/uL (130-400); RDW Coefficient of Variation 13.5 % (11.5-14.5); RDW Standard Deviation 50.3 fL (36.4-46.3); Red Blood Count 4.19 M/uL (4.70-6.10); White Blood Count 6.69 K/ul (4.8-10.8)
[2023-12-24 07:46] LABS: Anion Gap 3 (3-11); BUN Creatinine Ratio 37.8 (10-20); Blood Urea Nitrogen 31 mg/dl (6-23); Calcium 8.5 mg/dl (8.6-10.3); Carbon Dioxide 37 mmol/L (21-32); Chloride 95 mmol/L (98-107); Creatinine Clr Calc Pharmacy 104.7 ml/min; Est GFR (African American) 94.1 ml/min; Est GFR (Non-African American) 81.2 ml/min; Glucose 83 mg/dl (70-99(Fasting)); Sodium 135 mmol/L (136-145)
[2023-12-24] MEDS: FUROSEMIDE INJ 20 MG/2 ML VIAL IV ONE (09:12)
--- NOTE | 2023-12-24 13:19 | XCELERA ---
[id number] \\[id number]
--- NOTE | 2023-12-24 20:02 | Hospitalist Progress Note ---
Date of Service December 24, 2023 Assessment & Plan (1) Urinary tract obstruction by kidney stone: Plan: POD #2 s/p cystoscopy with deployment of L ureteral stent by Dr Willett for left-sided mid-ureteral stone Creatinine remains stable Small in place - no issues overnight; draining light seaman colored urine Cont abx for UTI / bacteremia If urine clears nicely next few days potentially could perform voiding trial later in the stay (2) Bacteremia: Plan: 2nd to proteus source - urinary tract repeat blood cx's x 2 remain negative cont IV abx - levaquin 750mg IV daily - day #2 of such, but had effective abx 24 hours prior to the levaquin levaquin will cover his lungs, urine, and blood (3) Acute metabolic encephalopathy: Plan: 2nd to pneumonia/UTI/obstructing kidney stone/bacteremia MUCH improved with abx, supportive care, L ureteral stent placement, etc (4) Pneumonia: Plan: b/l lower lobes cont levaquin IV -- plan 7 days in total of Rx wean O2 as tolerated - down to 2 L today (5) Complicated UTI (urinary tract infection): Plan: Proteus UTI in the setting of an obstructing kidney stone on left -- see above (6) Acute and chronic respiratory failure: Plan: acute resp failure - 2nd to pneumonia; possible decompensated diastolic CHF as well s/p lasix on hospital day #1 acute component improving nicely o2 is being weaned without difficulty resp biofire negative at admission chronic resp failure - OHS/ABDULLAHI; son reports he does NOT use daytime O2; he is on BiPAP at night only will need to reassess his o2 needs as hospitalization goes on (7) Diabetes mellitus type 2, controlled: Plan: Hba1c 6.4% this admission hold metformin cont lantus-novolog BSGs ac/hs (8) Elevated troponin: Plan: Peak troponin 184.5 Likely myocardial demand ischemia in the setting of bacteremia/UTI/obstructing kidney stone on left No evidence of ACS Echo today with preserved LV function and no regional wall motion abnormalities (9) History of DVT (deep vein thrombosis): Plan: Provoked event - 2018 Not currently on anticoagulation In light of chronic edema consider dopplers to r/o a new DVT (10) Obesity hypoventilation syndrome: Plan: son brought his home BIPAP unit in order placed to allow home BIPAP at HS (11) Subdural hematoma: Plan: previous history of - 2022 CT head this admission without any ICH/SDH (12) Thrombocytopenia: Plan: likely 2nd to bacteremia repeat level mildly low but stable (13) BPH (benign prostatic hyperplasia): Plan: cont flomax has small in place at this time (14) Hypertension: Plan: hold HCTZ will provide 1 additional dose of lasix today (15) Sepsis due to Proteus species: Plan: see above improving Plan DVT proph - lovenox daily as long as H/H remain stable and hematuria clears appreciate PT/OT evals will he need rehab?? son updated at bedside again today appreciate urology assistance Admission and Anticipated Discharge Date Admission Date: December 21, 2023 Subjective tele overnight wnl patient was sitting in the chair comfortably when I came to visit with him son was at bedside he continues to feel better more energy appetite a bit better denies dyspnea just before my visit he had worked with PT and he was quite weak needing max assist to stand O2 weaned to 2 L NC Review of Systems Review of Systems: gen - no fevers cv - no chest pain pulm - minimal cough GI - no abd pain; no flank pain Physical Exam Physical Exam: gen - obese, NAD, sitting in chair, looks good today mouth - MMM neck - no JVD heart - RRR, s1 s2, no murmur lungs - minimal rales bases, CTA b/l apices, no wheezes, no increased work of breathing abd - soft NT ND BS+; no flank tenderness to palpation b/l ext - trace edema b/l, pulses 2+ b/l psych - awake/alert/oriented Results & Data Results & Data Vital Signs (Past 12 Hours) Vital Signs Temp Pulse Resp BP Pulse Ox O2 Del Method O2 Flow Rate 12/24/23 15:19 36.4 C L 87 24 102/60 92 Nasal Cannula 2 12/24/23 14:20 93 12/24/23 11:20 37.0 C 89 17 120/66 94 Nasal Cannula 2.0 12/24/23 08:10 36.9 C 85 18 125/69 92 Nasal Cannula 2.0 Laboratory Results Laboratory Results - last 24 hr 12/23/23 12/24/23 12/24/23 20:38 06:41 07:20 WBC 6.69 RBC 4.19 L Hgb 13.7 L Hct 41.8 L MCV 99.8 MCH 32.7 MCHC 32.8 RDW Std Deviation 50.3 H RDW Coeff of Jessica 13.5 Plt Count 101 L MPV 12.0 Immature Gran % (Auto) 0.1 Neut % (Auto) 69.6 Lymph % (Auto) 11.7 [place] % (Auto) 16.7 Eos % (Auto) 1.5 Baso % (Auto) 0.4 Neut # (Auto) 4.65 Lymph # (Auto) 0.78 L [place] # (Auto) 1.12 H Eos # (Auto) 0.10 Baso # (Auto) 0.03 Immature Gran # (Auto) 0.01 Sodium 135 L Potassium TNP Chloride 95 L Carbon Dioxide 37 H Anion Gap 3 BUN 31 H Creatinine 0.82 Est Cr Clr Drug Dosing 104.7 Est GFR ( Amer) 94.1 Est GFR (Non-Af Amer) 81.2 BUN/Creatinine Ratio 37.8 H Glucose 83 POC Glucose 105 H 81 Calcium 8.5 L 12/24/23 12/24/23 12/24/23 11:10 11:19 16:22 WBC RBC Hgb Hct MCV MCH MCHC RDW Std Deviation RDW Coeff of Jessica Plt Count MPV Immature Gran % (Auto) Neut % (Auto) Lymph % (Auto) [place] % (Auto) Eos % (Auto) Baso % (Auto) Neut # (Auto) Lymph # (Auto) [place] # (Auto) Eos # (Auto) Baso # (Auto) Immature Gran # (Auto) Sodium Potassium 4.1 Chloride Carbon Dioxide Anion Gap BUN Creatinine Est Cr Clr Drug Dosing Est GFR ( Amer) Est GFR (Non-Af Amer) BUN/Creatinine Ratio Glucose POC Glucose 123 H 129 H Calcium Diagnostic Findings Microbiology 12/23/23 06:28 Blood Aerobic Blood Culture - Preliminary No growth in Aerobic bottle after 24 hours. 12/23/23 06:28 Blood Anaerobic Blood Culture - Final 12/23/23 06:33 Blood Aerobic Blood Culture - Preliminary No growth in Aerobic bottle after 24 hours. 12/23/23 06:33 Blood Anaerobic Blood Culture - Preliminary No growth in Anaerobic bottle after 24 hours. 12/21/23 19:21 Blood Aerobic Blood Culture - Preliminary No growth in Aerobic bottle after 48 hours. 12/21/23 19:21 Blood Anaerobic Blood Culture - Preliminary Proteus mirabilis 12/21/23 18:40 Blood Aerobic Blood Culture - Preliminary No growth in Aerobic bottle after 48 hours. 12/21/23 18:40 Blood Anaerobic Blood Culture - Preliminary No growth in Anaerobic bottle after 48 hours. 12/21/23 19:15 Urine,Straight Cath Urine Culture - Final Proteus mirabilis PG Care Time/CCT Total # of Minutes Spent Total Time Spent with Patient: Total time spent is greater than 50% in coordination of care (as documented) at patient's floor/unit and/or counseling patient: Coding Level of Care Code 13416 SUB INP/OBS CARE 2/35MIN Diagnoses Urinary tract obstruction by kidney stone N20.0; N13.8 Bacteremia R78.81 Acute metabolic encephalopathy G93.41 Pneumonia J18.9 Laterality: bilateral Lung location: lower lobe of lung Pneumonia type: due to unspecified organism Complicated UTI (urinary tract infection) N39.0 Acute and chronic respiratory failure J96.21; J96.22 Respiratory failure complication: hypoxia and hypercapnia Diabetes mellitus type 2, controlled E11.9 Elevated troponin R79.89 History of DVT (deep vein thrombosis) Z86.718 Obesity hypoventilation syndrome E66.2 Subdural hematoma S06.5XAA Thrombocytopenia D69.6 BPH (benign prostatic hyperplasia) N40.0 Hypertension I10 Sepsis due to Proteus species A41.59 (4) Pneumonia Laterality: bilateral Lung location: lower lobe of lung Pneumonia type: due to unspecified organism Qualified Code(s): J18.9 - Pneumonia, unspecified organ ism (6) Acute and chronic respiratory failure Respiratory failure complication: hypoxia and hypercapnia Qualified Code(s): J96.21 - Acute and chronic respiratory failure with hypoxia; J96.22 - Acute and chronic respiratory failure with hypercapnia
[2023-12-25 07:02] LABS: BUN Creatinine Ratio 37.8 (10-20); Calcium 8.5 mg/dl (8.6-10.3); Creatinine Clr Calc Pharmacy 104.3 ml/min; Est GFR (African American) 94.1 ml/min; Est GFR (Non-African American) 81.2 ml/min; Potassium 3.7 mmol/L (3.5-5.1)
--- NOTE | 2023-12-25 20:15 | Hospitalist Progress Note ---
Date of Service December 25, 2023 Assessment & Plan (1) Urinary tract obstruction by kidney stone: Plan: POD #3 s/p cystoscopy with deployment of L ureteral stent by Dr Willett for left-sided mid-ureteral stone Creatinine remains stable <[address] - no issues overnight; draining light seaman colored urine - continues to improve Cont abx for UTI / bacteremia -- day #4 of effective abx therapy If urine continues to clear could perform voiding trial later in the stay (2) Bacteremia: Plan: 2nd to proteus source - urinary tract repeat blood cx's x 2 remain negative cont IV abx - levaquin 750mg IV daily - day #3 of such, but had effective abx 24 hours prior to the levaquin (thus really day #4 of effective abx) levaquin will cover his lungs, urine, and blood (3) Acute metabolic encephalopathy: Plan: 2nd to pneumonia/UTI/obstructing kidney stone/bacteremia resolved mental status at baseline (4) Pneumonia: Plan: b/l lower lobes cont levaquin IV -- plan 7 days in total of Rx wean O2 as tolerated (5) Complicated UTI (urinary tract infection): Plan: Proteus UTI in the setting of an obstructing kidney stone on left -- see above (6) Acute and chronic respiratory failure: Plan: acute resp failure - 2nd to pneumonia; possible decompensated diastolic CHF as well s/p lasix on hospital day #1 acute component improving nicely - NC O2 down to 2 L today resp biofire negative at admission chronic resp failure - OHS/ABDULLAHI; son reports he does NOT use daytime O2; he is on BiPAP at night only will need to reassess his o2 needs as hospitalization goes on (7) Diabetes mellitus type 2, controlled: Plan: Hba1c 6.4% this admission hold metformin controlled cont lantus-novolog BSGs ac/hs (8) Elevated troponin: Plan: Peak troponin 184.5 Likely myocardial demand ischemia in the setting of bacteremia/UTI/obstructing kidney stone on left No evidence of ACS Echo with preserved LV function and no regional wall motion abnormalities (9) History of DVT (deep vein thrombosis): Plan: Provoked event - 2018 Not currently on anticoagulation In light of chronic edema could consider dopplers to r/o a new DVT but he reports the edema is unchanged from baseline (10) Obesity hypoventilation syndrome: Plan: son brought his home BIPAP unit in order placed to allow home BIPAP at HS blend O2 into unit as needed (11) Subdural hematoma: Plan: previous history of - 2022 CT head this admission without any ICH/SDH (12) Thrombocytopenia: Plan: likely 2nd to bacteremia repeat CBC am for stability (13) BPH (benign prostatic hyperplasia): Plan: cont flomax has small in place at this time hopefully can perform voiding trial this weekend (14) Hypertension: Plan: hold HCTZ for now (15) Sepsis due to Proteus species: Plan: see above improving Plan DVT proph - lovenox daily hematuria clearing - can cont lovenox appreciate PT/OT evals rehab advised but pt & his son are refusing such we had lengthy discussion today about rehab - I voiced my concerns that it will be difficult transition home given his severe weakness still adamant about d/c home left message for son on his voicemail this evening - 12/25/23 Admission and Anticipated Discharge Date Admission Date: December 21, 2023 Subjective pt watching TV upon my arrival feeling well except he admits to weakness when out of bed today very weak and challenging to get around no dyspnea scant cough no abd pain eating well although his home BIPAP unit was here last pm he didn't use it? urine in small -- hematuria clearing Review of Systems Review of Systems: gen - no fevers cv - no cp pulm - no dyspnea, still requiring NC O2 GI - no abd pain Physical Exam Physical Exam: gen - obese, NAD, laying comfortably in bed mouth - MMM neck - no JVD heart - RRR, s1 s2, no murmur lungs - CTA b/l, minimal rales bases, no wheezes, no increased work of breathing abd - soft NT ND BS+; no flank tenderness to palpation b/l ext - trace-1+ edema b/l, pulses 2+ b/l psych - awake/alert/oriented x 3 Results & Data Results & Data Vital Signs (Past 12 Hours) Vital Signs Temp Pulse Resp BP Pulse Ox O2 Del Method O2 Flow Rate 12/25/23 19:08 36.4 C L 86 18 144/74 H 90 Nasal Cannula 2.0 12/25/23 15:49 Nasal Cannula 2 12/25/23 15:35 37.1 C 80 17 143/69 H 96 Nasal Cannula 2.0 12/25/23 11:00 36.6 C 77 20 127/80 96 Nasal Cannula 4 Laboratory Results Laboratory Results - last 24 hr 12/24/23 12/25/23 12/25/23 20:28 05:22 07:38 Sodium 137 Potassium 3.7 Chloride 95 L Carbon Dioxide 40 H Anion Gap 2 L BUN 31 H Creatinine 0.82 Est Cr Clr Drug Dosing 104.3 Est GFR ( Amer) 94.1 Est GFR (Non-Af Amer) 81.2 BUN/Creatinine Ratio 37.8 H Glucose 101 H POC Glucose 189 H 99 Calcium 8.5 L 12/25/23 12/25/23 12/25/23 11:43 16:14 20:12 Sodium Potassium Chloride Carbon Dioxide Anion Gap BUN Creatinine Est Cr Clr Drug Dosing Est GFR ( Amer) Est GFR (Non-Af Amer) BUN/Creatinine Ratio Glucose POC Glucose 133 H 130 H 148 H Calcium Diagnostic Findings Microbiology 12/23/23 06:28 Blood Aerobic Blood Culture - Preliminary No growth in Aerobic bottle after 48 hours. 12/23/23 06:28 Blood Anaerobic Blood Culture - Final 12/23/23 06:33 Blood Aerobic Blood Culture - Preliminary No growth in Aerobic bottle after 48 hours. 12/23/23 06:33 Blood Anaerobic Blood Culture - Preliminary No growth in Anaerobic bottle after 48 hours. 12/21/23 19:21 Blood Aerobic Blood Culture - Preliminary No growth in Aerobic bottle after 48 hours. 12/21/23 19:21 Blood Anaerobic Blood Culture - Preliminary Proteus mirabilis 12/21/23 18:40 Blood Aerobic Blood Culture - Preliminary No growth in Aerobic bottle after 48 hours. 12/21/23 18:40 Blood Anaerobic Blood Culture - Preliminary No growth in Anaerobic bottle after 48 hours. 12/21/23 19:15 Urine,Straight Cath Urine Culture - Final Proteus mirabilis PG Care Time/CCT Total # of Minutes Spent Total Time Spent with Patient: Total time spent is greater than 50% in coordination of care (as documented) at patient's floor/unit and/or counseling patient: Coding Level of Care Code 04693 SUB INP/OBS CARE 2/35MIN Diagnoses Urinary tract obstruction by kidney stone N20.0; N13.8 Bacteremia R78.81 Acute metabolic encephalopathy G93.41 Pneumonia J18.9 Laterality: bilateral Lung location: lower lobe of lung Pneumonia type: due to unspecified organism Complicated UTI (urinary tract infection) N39.0 Acute and chronic respiratory failure J96.21; J96.22 Respiratory failure complication: hypoxia and hypercapnia Diabetes mellitus type 2, controlled E11.9 Elevated troponin R79.89 History of DVT (deep vein thrombosis) Z86.718 Obesity hypoventilation syndrome E66.2 Subdural hematoma S06.5XAA Thrombocytopenia D69.6 BPH (benign prostatic hyperplasia) N40.0 Hypertension I10 Sepsis due to Proteus species A41.59 (4) Pneumonia Laterality: bilateral Lung location: lower lobe of lung Pneumonia type: due to unspecified organism Qualified Code(s): J18.9 - Pneumonia, unspecified organism (6) Acute and chronic respiratory failure Respiratory failure complication: hypoxia and hypercapnia Qualified Code(s): J96.21 - Acute and chronic respiratory failure with hypoxia; J96.22 - Acute and chronic respiratory failure with hypercapnia
[2023-12-26 08:07] LABS: Basophils # (auto) 0.03 K/uL (0.00-0.20); Basophils % (auto) 0.5 %; Eosinophils # (auto) 0.18 K/uL (0.00-0.50); Eosinophils % (auto) 3.2 %; Hematocrit (blood only) 45.9 % (42.0-52.0); Hemoglobin 14.5 g/dl (14.0-18.0); Immature Granulocytes # (auto) 0.02 K/uL (0.01-0.20); Immature Granulocytes % (auto) 0.4 %; Lymphocytes # (auto) 0.88 K/uL (1.20-3.40); Lymphocytes % (auto) 15.5 %; Mean Corpuscular Hemoglobin 32.4 pg (25.0-34.0); Mean Corpuscular Hgb Conc 31.6 g/dL (32.0-36.0); Mean Corpuscular Volume 102.7 fL (80.0-100.0); Mean Platelet Volume 11.4 fL (9.4-12.4); Monocytes # (auto) 0.69 K/uL (0.11-0.59); Monocytes % (auto) 12.1 %; Neutrophils # (auto) 3.89 K/uL (1.40-6.50); Neutrophils % (auto) 68.3 %; Platelet Count 115 K/uL (130-400); RDW Coefficient of Variation 13.4 % (11.5-14.5); RDW Standard Deviation 51.6 fL (36.4-46.3); Red Blood Count 4.47 M/uL (4.70-6.10); White Blood Count 5.69 K/ul (4.8-10.8)
[2023-12-26 08:33] LABS: BUN Creatinine Ratio 34.8 (10-20); Calcium 8.8 mg/dl (8.6-10.3); Creatinine Clr Calc Pharmacy 129.8 ml/min; Est GFR (African American) 102.9 ml/min; Est GFR (Non-African American) 88.8 ml/min; Potassium 3.4 mmol/L (3.5-5.1)
[2023-12-26] MEDS: POLYETHYLENE (MIRALAX) 17 GM PACK PO SCH (08:33)
[2023-12-26] MEDS: SENNA 8.6 MG TAB PO SCH (08:34)
--- NOTE | 2023-12-26 14:43 | Hospitalist Progress Note ---
Date of Service December 26, 2023 Assessment & Plan (1) Urinary tract obstruction by kidney stone: Plan: POD #4 s/p cystoscopy with deployment of L ureteral stent by Dr Willett for left-sided mid-ureteral stone Creatinine remains stable <[address] - no issues overnight; making excellent urine Cont abx for UTI / bacteremia -- day #5 of effective abx therapy If urine continues to clear will attempt voiding trial tomorrow am (2) Bacteremia: Plan: 2nd to proteus source - urinary tract repeat blood cx's x 2 negative cont IV abx - levaquin 750mg IV daily - day #4 of such, but had effective abx 24 hours prior to the levaquin (thus really day #5 of effective abx) levaquin will cover his lungs, urine, and blood (3) Acute metabolic encephalopathy: Plan: 2nd to pneumonia/UTI/obstructing kidney stone/bacteremia resolved mental status at baseline (4) Pneumonia: Plan: b/l lower lobes cont levaquin IV -- plan 7 days in total of Rx wean O2 as tolerated (5) Complicated UTI (urinary tract infection): Plan: Proteus UTI in the setting of an obstructing kidney stone on left -- see above (6) Acute and chronic respiratory failure: Plan: acute resp failure - 2nd to pneumonia; possible decompensated diastolic CHF as well s/p lasix on hospital day #1 acute component improved resp biofire negative at admission chronic resp failure - OHS/ABDULLAHI; son reports he does NOT use daytime O2; he is on BiPAP at night only will get 2step prior to d/c home (7) Diabetes mellitus type 2, controlled: Plan: Hba1c 6.4% this admission hold metformin controlled cont lantus-novolog BSGs ac/hs (8) Elevated troponin: Plan: Peak troponin 184.5 Likely myocardial demand ischemia in the setting of bacteremia/UTI/obstructing kidney stone on left No evidence of ACS Echo with preserved LV function and no regional wall motion abnormalities (9) History of DVT (deep vein thrombosis): Plan: Provoked event - 2018 Not currently on anticoagulation In light of chronic edema could consider dopplers to r/o a new DVT but he reports the edema is unchanged from baseline thus defer for now (10) Obesity hypoventilation syndrome: Plan: son brought his home BIPAP unit in order placed to allow home BIPAP at HS blend O2 into unit as needed (11) Subdural hematoma: Plan: previous history of - 2022 CT head this admission without any ICH/SDH (12) Thrombocytopenia: Plan: likely 2nd to bacteremia improving repeat CBC am for stability (13) BPH (benign prostatic hyperplasia): Plan: cont flomax has small in place at this time pull small tomorrow am and perform trial of void (14) Hypertension: Plan: hold HCTZ (15) Sepsis due to Proteus species: Plan: see above improving/resolving Plan DVT proph - lovenox daily hematuria clearing - can cont lovenox appreciate PT/OT evals rehab advised but pt continues to refuse such - I have spoken to him multiple times about my concerns of him returning home in his current weakened state updated pt's son this evening - he supports his father going to rehab but he confirmed his father has told him as well that he simply will not go anywhere but home Admission and Anticipated Discharge Date Admission Date: December 21, 2023 Subjective tele overnight wnl no acute issues small draining se[place] red urine but no clots eating fair no dyspnea no cough c/o chronic low back pain and feeling weak but still adamant about going home rather than rehab Review of Systems Review of Systems: gen - no fevers or chills cv - no chest pain pulm - no dyspnea or wheezes Physical Exam Physical Exam: gen - obese, NAD, sitting in chair watching TV mouth - MMM neck - no JVD heart - RRR, s1 s2, no murmur lungs - CTA b/l abd - soft NT ND BS+; no flank tenderness to palpation b/l ext - trace-1+ edema b/l (unchanged), pulses 2+ b/l psych - awake/alert/oriented x 3 Results & Data Results & Data Vital Signs (Past 12 Hours) Vital Signs Temp Pulse Pulse Resp BP BP Pulse Ox 12/26/23 12:38 36.4 C L 83 19 111/68 96 12/26/23 08:37 36.4 C L 89 19 103/66 94 12/26/23 08:00 12/26/23 07:00 78 12/26/23 04:12 37.1 C 75 19 112/65 90 O2 Del Method O2 Flow Rate 12/26/23 12:38 Nasal Cannula 12/26/23 08:37 Nasal Cannula 12/26/23 08:00 Nasal Cannula 4 12/26/23 07:00 12/26/23 04:12 CPAP 2 Laboratory Results Laboratory Results - last 24 hr 12/25/23 12/25/23 12/26/23 16:14 20:12 07:20 WBC RBC Hgb Hct MCV MCH MCHC RDW Std Deviation RDW Coeff of Jessica Plt Count MPV Immature Gran % (Auto) Neut % (Auto) Lymph % (Auto) [place] % (Auto) Eos % (Auto) Baso % (Auto) Neut # (Auto) Lymph # (Auto) [place] # (Auto) Eos # (Auto) Baso # (Auto) Immature Gran # (Auto) Sodium Potassium Chloride Carbon Dioxide Anion Gap BUN Creatinine Est Cr Clr Drug Dosing Est GFR ( Amer) Est GFR (Non-Af Amer) BUN/Creatinine Ratio Glucose POC Glucose 130 H 148 H 88 Calcium 12/26/23 12/26/23 07:44 11:11 WBC 5.69 RBC 4.47 L Hgb 14.5 Hct 45.9 MCV 102.7 H MCH 32.4 MCHC 31.6 L RDW Std Deviation 51.6 H RDW Coeff of Jessica 13.4 Plt Count 115 L MPV 11.4 Immature Gran % (Auto) 0.4 Neut % (Auto) 68.3 Lymph % (Auto) 15.5 [place] % (Auto) 12.1 Eos % (Auto) 3.2 Baso % (Auto) 0.5 Neut # (Auto) 3.89 Lymph # (Auto) 0.88 L [place] # (Auto) 0.69 H Eos # (Auto) 0.18 Baso # (Auto) 0.03 Immature Gran # (Auto) 0.02 Sodium 141 Potassium 3.4 L Chloride 97 L Carbon Dioxide 41 H* Anion Gap 3 BUN 23 Creatinine 0.66 Est Cr Clr Drug Dosing 129.8 Est GFR ( Amer) 102.9 Est GFR (Non-Af Amer) 88.8 BUN/Creatinine Ratio 34.8 H Glucose 92 POC Glucose 157 H Calcium 8.8 Diagnostic Findings Microbiology 12/21/23 19:21 Blood Aerobic Blood Culture - Final No growth in Aerobic bottle after 5 days. 12/21/23 19:21 Blood Anaerobic Blood Culture - Preliminary Proteus mirabilis 12/21/23 18:40 Blood Aerobic Blood Culture - Final No growth in Aerobic bottle after 5 days. 12/21/23 18:40 Blood Anaerobic Blood Culture - Final No growth in Anaerobic bottle after 5 days. 12/23/23 06:28 Blood Aerobic Blood Culture - Preliminary No growth in Aerobic bottle after 48 hours. 12/23/23 06:28 Blood Anaerobic Blood Culture - Final 12/23/23 06:33 Blood Aerobic Blood Culture - Preliminary No growth in Aerobic bottle after 48 hours. 12/23/23 06:33 Blood Anaerobic Blood Culture - Preliminary No growth in Anaerobic bottle after 48 hours. 12/21/23 19:15 Urine,Straight Cath Urine Culture - Final Proteus mirabilis PG Care Time/CCT Total # of Minutes Spent Total Time Spent with Patient: Total time spent is greater than 50% in coordination of care (as documented) at patient's floor/unit and/or counseling patient: Coding Level of Care Code 77473 SUB INP/OBS CARE 2/35MIN Diagnoses Urinary tract obstruction by kidney stone N20.0; N13.8 Bacteremia R78.81 Acute metabolic encephalopathy G93.41 Pneumonia J18.9 Laterality: bilateral Lung location: lower lobe of lung Pneumonia type: due to unspecified organism Complicated UTI (urinary tract infection) N39.0 Acute and chronic respiratory failure J96.21; J96.22 Respiratory failure complication: hypoxia and hypercapnia Diabetes mellitus type 2, controlled E11.9 Elevated troponin R79.89 History of DVT (deep vein thrombosis) Z86.718 Obesity hypoventilation syndrome E66.2 Subdural hematoma S06.5XAA Thrombocytopenia D69.6 BPH (benign prostatic hyperplasia) N40.0 Hypertension I10 Sepsis due to Proteus species A41.59 (4) Pneumonia Laterality: bilateral Lung location: lower lobe of lung Pneumonia type: due to unspecified organism Qualified Code(s): J18.9 - Pneumonia, unspecified organism (6) Acute and chronic respiratory failure Respiratory failure complication: hypoxia and hypercapnia Qualified Code(s): J96.21 - Acute and chronic respiratory failure with hypoxia; J96.22 - Acute and chronic respiratory failure with hypercapnia
[2023-12-26] MEDS: POTASSIUM CHLORIDE CRTAB 20 MEQ TABCR PO STA (14:47)
[2023-12-27 08:39] LABS: BUN Creatinine Ratio 30.6 (10-20); Calcium 8.7 mg/dl (8.6-10.3); Creatinine Clr Calc Pharmacy 138.1 ml/min; Est GFR (African American) 105.6 ml/min; Est GFR (Non-African American) 91.1 ml/min; Magnesium 1.6 mg/dl (1.7-2.4); Potassium 4.1 mmol/L (3.5-5.1)
[2023-12-27] MEDS: MAGNESIUM SULFATE / D5W 1 GM/100 ML BAG IV SCH (11:33)
--- NOTE | 2023-12-28 05:52 | Hospitalist Progress Note ---
Date of Service December 27, 2023 Assessment & Plan (1) Urinary tract obstruction by kidney stone: Plan: POD #5 s/p cystoscopy with deployment of L ureteral stent by Dr Willett for left-sided mid-ureteral stone Creatinine remains stable <1 Small discontinuation trial this am - did not go well today; hematuria, retention, etc - see below Cont abx for UTI / bacteremia -- day #7 of effective abx therapy Definitive stone treatment as outpatient in 2 weeks post-d/c (2) Bacteremia: Plan: 2nd to proteus source - urinary tract repeat blood cx's x 2 negative cont IV abx - levaquin 750mg IV daily - day #6 of such, but had effective abx 24 hours prior to the levaquin (thus really day #6-7 of effective abx) levaquin will cover his lungs, urine, and blood can likely transition to cipro for more narrow coverage starting tomorrow as the pneumonia has been aggressively treated since 12/21/23 (cefepime then levaquin) upon transition will use cipro 400mg IV q12h first, then at d/c can revert to PO cipro to finish his course for the bacteremia (3) Hematuria: Plan: 2nd to #1 urine had been clearing nicely over the last 2 days no issues with clotting for 2-3+ days small was removed this am for voiding trial; prior to discontinuation the small was hand irrigated without any clots obtained upon discontinuation he was voiding small amounts of bloody urine with clots he ultimately was retaining and a 3-way small was placed back CBI was initiated due to the number of clots I checked on him after the above events and the clots were clearing and the small was draining appropriately I informed on-call urology of the above and they will check on him tomorrow am with worsening bleeding today after removal of small -- area of bleeding from the urethral tract?? (4) Acute metabolic encephalopathy: Plan: 2nd to pneumonia/UTI/obstructing kidney stone/bacteremia resolved mental status at baseline (5) Pneumonia: Plan: b/l lower lobes clinically improved/resolved initially was on cefepime for about 48 hours, then changed to IV levaquin he has received about 7 days of IV Rx for his pneumonia can stop IV levaquin and narrow his abx to cover the urinary tract/bacteremia moving forward (6) Complicated UTI (urinary tract infection): Plan: Proteus UTI in the setting of an obstructing kidney stone on left -- see above (7) Sepsis due to Proteus species: Plan: see above sepsis resolved (8) Acute and chronic respiratory failure: Plan: acute resp failure - 2nd to pneumonia; possible decompensated diastolic CHF as well s/p lasix on hospital day #1 acute component improved resp biofire negative at admission chronic resp failure - OHS/ABDULLAHI; son reports he does NOT use daytime O2; he is on BiPAP at night only will get 2-step prior to d/c home he has had numerous documented episodes of o2 sats <88% in room air at rest just need to determine amount of O2 needed with activity (9) Diabetes mellitus type 2, controlled: Plan: Hba1c 6.4% this admission hold metformin controlled cont lantus-novolog BSGs ac/hs (10) Elevated troponin: Plan: Peak troponin 184.5 Likely myocardial demand ischemia in the setting of bacteremia/UTI/obstructing kidney stone on left No evidence of ACS Echo with preserved LV function and no regional wall motion abnormalities (11) History of DVT (deep vein thrombosis): Plan: Provoked event - 2018 Not currently on anticoagulation In light of chronic edema could consider dopplers to r/o a new DVT but he reports the edema is unchanged from his chronic baseline thus defer for now (12) Obesity hypoventilation syndrome: Plan: son brought his home BIPAP unit in order placed to allow home BIPAP at HS blend O2 into unit as needed (13) Subdural hematoma: Plan: previous history of - 2022 CT head this admission without any ICH/SDH (14) Thrombocytopenia: Plan: likely 2nd to bacteremia improving repeat CBC am for stability and in light of gross hematuria (15) BPH (benign prostatic hyperplasia): Plan: cont flomax has small in place at this time see "hematuria" above (16) Hypertension: Plan: hold HCTZ BPs controlled w/o such Plan DVT proph - lovenox daily in light of DVT history I believe the high risk of DVT formation and need for prophylaxis outweighs any risk of potentially causing more hematuria thus, cautiously cont the lovenox appreciate PT/OT evals rehab advised but pt continues to refuse such - I have spoken to him numerous times about my concerns of him returning home in his current weakened state he will not budge from his desire to go home; he does retain capacity to make his own medical decisions; he is not confused updated pt's son yesterday evening by phone Admission and Anticipated Discharge Date Admission Date: December 21, 2023 Subjective overnight - tele wnl also overnight - no clots in small; urine had continued to clear with light luz marina turia only small removed this am for trial of void during my assessment (late AM) he did indeed void the the urine was very bloody (worse than prior) and only about 100cc his next void was minimal in volume and again very bloody in the afternoon we placed a new small - 3-way version CBI was begun due to considerable clotting following initiation of CBI the urine began to clear slowly patient overall reports doing better despite the hematuria he is eating fair still requiring NC O2 - 2 liters continuously without such he has numerous documented episodes of O2 sats in the low 80s in r oom air at rest we discussed rehab again - still adamantly opposed I told him I had spoken with his son Bassam last pm and Bassam supports him going to rehab he replied "Bassam doesn't make the decision if I go to rehab or not" Review of Systems Review of Systems: gen - feeling much better but does admit to significant weakness; pt had a large BM today and needed to be wiped by nursing; he had a very hard time standing simply to be wiped cv - no chest pain pulm - no dyspnea, no dyspnea with transfers, scant cough GI - large BM today, no pain or N/V - gross hematuria Physical Exam Physical Exam: gen - obese, NAD, sitting in chair watching TV - looks well but weak mouth - MMM neck - no JVD heart - RRR, s1 s2, no murmur lungs - CTA b/l, decreased BS bases abd - soft NT ND BS+; no flank tenderness to palpation b/l ext - trace-1+ edema b/l (unchanged), pulses 2+ b/l psych - awake/alert/oriented x 3 Results & Data Results & Data Vital Signs (Past 12 Hours) Vital Signs Temp Pulse Pulse Resp BP Pulse Ox O2 Del Method 12/27/23 15:51 36.6 C 76 22 142/81 H 98 Nasal Cannula 12/27/23 14:00 86 12/27/23 11:52 37.1 C 88 23 141/77 H 96 Nasal Cannula 12/27/23 08:36 36.9 C 84 25 H 141/77 H 97 Nasal Cannula 12/27/23 07:00 77 Laboratory Results Laboratory Results - last 24 hr 12/27/23 12/27/23 12/27/23 07:08 07:50 11:02 Sodium 140 Potassium 4.1 D Chloride 99 Carbon Dioxide 40 H Anion Gap 1 L BUN 19 Creatinine 0.62 Est Cr Clr Drug Dosing 138.1 Est GFR ( Amer) 105.6 Est GFR (Non-Af Amer) 91.1 BUN/Creatinine Ratio 30.6 H Glucose 103 H POC Glucose 99 112 H Calcium 8.7 Magnesium 1.6 L 12/27/23 16:23 Sodium Potassium Chloride Carbon Dioxide Anion Gap BUN Creatinine Est Cr Clr Drug Dosing Est GFR ( Amer) Est GFR (Non-Af Amer) BUN/Creatinine Ratio Glucose POC Glucose 114 H Calcium Magnesium PG Care Time/CCT Total # of Minutes Spent Total Time Spent with Patient: Total time spent is greater than 50% in coordination of care (as documented) at patient's floor/unit and/or counseling patient: Coding Level of Care Code 31901 SUB INP/OBS CARE 3/50MIN Diagnoses Urinary tract obstruction by kidney stone N20.0; N13.8 Bacteremia R78.81 Hematuria R31.9 Acute metabolic encephalopathy G93.41 Pneumonia J18.9 Laterality: bilateral Lung location: lower lobe of lung Pneumonia type: due to unspecified organism Complicated UTI (urinary tract infection) N39.0 Sepsis due to Proteus species A41.59 Acute and chronic respiratory failure J96.21; J96.22 Respiratory failure complication: hypoxia and hypercapnia Diabetes mellitus type 2, controlled E11.9 Elevated troponin R79.89 History of DVT (deep vein thrombosis) Z86.718 Obesity hypoventilation syndrome E66.2 Subdural hematoma S06.5XAA Thrombocytopenia D69.6 BPH (benign prostatic hyperplasia) N40.0 Hypertension I10 (5) Pneumonia Laterality: bilateral Lung location: lower lobe of lung Pneumonia type: due to unspecified organism Qualified Code(s): J18.9 - Pneumonia, unspecified organism (8) Acute and chronic respiratory failure Respiratory failure complication: hypoxia and hypercapnia Qualified Code(s): J96.21 - Acute and chronic respiratory failure with hypoxia; J96.22 - Acute and chronic respiratory failure with hypercapnia
[2023-12-28 06:31] LABS: Hematocrit (blood only) 43.1 % (42.0-52.0); Hemoglobin 14.3 g/dl (14.0-18.0); Mean Corpuscular Hgb Conc 33.2 g/dL (32.0-36.0); Mean Corpuscular Volume 99.5 fL (80.0-100.0); Mean Platelet Volume 11.3 fL (9.4-12.4); Platelet Count 143 K/uL (130-400); RDW Coefficient of Variation 13.2 % (11.5-14.5); RDW Standard Deviation 49.5 fL (36.4-46.3); Red Blood Count 4.33 M/uL (4.70-6.10); White Blood Count 7.03 K/ul (4.8-10.8)
[2023-12-28 06:53] LABS: BUN Creatinine Ratio 28.6 (10-20); Calcium 8.8 mg/dl (8.6-10.3); Creatinine Clr Calc Pharmacy 121.1 ml/min; Est GFR (African American) 100.4 ml/min; Est GFR (Non-African American) 86.7 ml/min; Magnesium 1.8 mg/dl (1.7-2.4); Potassium 4.3 mmol/L (3.5-5.1)
[2023-12-28] MEDS: CIPROFLOXACIN / D5W 400 MG/200 ML BAG IV SCH (09:02)
[2023-12-28] MEDS: hydrOXYzine HCl 10 MG TAB PO PRN (09:03)
--- NOTE | 2023-12-28 14:04 | Hospitalist Progress Note ---
Date of Service December 28, 2023 Assessment & Plan (1) Urinary tract obstruction by kidney stone: Plan: POD #6 s/p cystoscopy with deployment of L ureteral stent by Dr Willett for left-sided mid-ureteral stone Creatinine cont to remain stable (<1) Small removed for trial of void on 3/3 - did not go well - significant hematuria and retention after small removal see below Cont abx for UTI / bacteremia -- day #8 of effective abx therapy Definitive stone treatment as outpatient in 2 weeks post-d/c (2) Bacteremia: Plan: 2nd to proteus source - urinary tract repeat blood cx's x 2 negative cont IV abx - can transition from levaquin 750mg IV daily to IV cipro he is day #7-8 of effective abx for his pneumonia/bacteremia/UTI plan 14 days of Rx with day #1 of antibiotics being his admission date at hospital d/c can revert to PO cipro to finish his course for the bacteremia at home (3) Hematuria: Plan: 2nd to #1 urine had been clearing nicely over the previous few days small was removed 3/3 voiding trial; prior to discontinuation the small was hand irrigated without any clots obtained upon discontinuation he was voiding small amounts of bloody urine with clots he ultimately was retaining and a 3-way small was placed back CBI was initiated due to the number of clots with worsening bleeding after removal of small -- area of bleeding from the urethral tract?? urology saw patient again today - cont CBI overnight with hopes of stopping CBI on 3/5 urine has improved nicely in the last 24 hours (4) Acute metabolic encephalopathy: Plan: 2nd to pneumonia/UTI/obstructing kidney stone/bacteremia resolved (5) Pneumonia: Plan: b/l lower lobes clinically improved/resolved initially was on cefepime for about 48 hours, then changed to IV levaquin he has received about 8 days of IV Rx for his pneumonia can stop IV levaquin and narrow his abx to cipro for the urinary tract/bacteremia (see above) (6) Complicated UTI (urinary tract infection): Plan: Proteus UTI in the setting of an obstructing kidney stone on left -- see above (7) Sepsis due to Proteus species: Plan: see above sepsis resolved (8) Acute and chronic respiratory failure: Plan: acute resp failure - 2nd to pneumonia; possible decompensated diastolic CHF as well - s/p lasix on hospital day #1 acute component improved/resolved resp biofire negative at admission chronic resp failure - OHS/ABDULLAHI; son reports he does NOT typically use daytime O2; he is on BiPAP at night only will get formal 2-step prior to d/c home he has had numerous documented episodes of o2 sats <88% in room air at rest just need to determine amount of O2 needed with activity (9) Diabetes mellitus type 2, controlled: Plan: Hba1c 6.4% this admission hold metformin controlled cont lantus-novolog BSGs ac/hs (10) Elevated troponin: Plan: Peak troponin 184.5 Likely myocardial demand ischemia in the setting of bacteremia/UTI/obstructing kidney stone on left No evidence of ACS Echo with preserved LV function and no regional wall motion abnormalities (11) History of DVT (deep vein thrombosis): Plan: Provoked event - 2018 Not currently on anticoagulation In light of chronic edema could consider dopplers to r/o a new DVT but he reports the edema is unchanged from his chronic baseline thus defer for now (12) Obesity hypoventilation syndrome: Plan: son brought his home BIPAP unit in order placed to allow home BIPAP at HS blend O2 into unit as needed (13) Subdural hematoma: Plan: previous history of - 2022 CT head this admission without any ICH/SDH (14) Thrombocytopenia: Plan: likely 2nd to bacteremia improving, platelets today near-normal (15) BPH (benign prostatic hyperplasia): Plan: cont flomax has small in place at this time see "hematuria" above (16) Hypertension: Plan: hold HCTZ BPs controlled w/o such Plan DVT proph - lovenox daily in light of DVT history I believe the high risk of DVT formation and need for prophylaxis outweighs any risk of potentially causing more hematuria further, H/H remain stable over the last 3 days thus, cautiously cont the lovenox appreciate PT/OT evals rehab advised but pt continues to refuse such - I have spoken to him numerous times about my concerns of him returning home in his current weakened state he will not budge from his desire to go home; he does retain capacity to make his own medical decisions son wants him to go to rehab, too, but again patient refusing pt's son updated by phone this evening dispo - home with home PT/OT timing uncertain - next 48 hours Admission and Anticipated Discharge Date Admission Date: December 21, 2023 Subjective patient sitting in chair by the window he only reports mild suprapubic discomfort - not really a pain denies dyspnea denies cough denies abd pain/nausea/emesis eating fair tele - NSR urine in small - maroon-colored, no clots; CBI running at low-rate Review of Systems Review of Systems: gen - no fevers; weakness/fatigue cv - no chest pain; chronic edema - unchanged pulm - no wheezing GI - moving bowels Physical Exam Physical Exam: gen - obese, NAD, sitting in chair mouth - MMM neck - no JVD heart - RRR, s1 s2, no murmur lungs - CTA b/l, decreased BS bases; no rales or wheezes abd - soft NT ND BS+ ext - trace-1+ edema b/l, pulses 2+ b/l psych - awake/alert/oriented x 3 - small in place, maroon-colored urine in small bag Results & Data Results & Data Vital Signs (Past 12 Hours) Vital Signs Temp Pulse Resp BP Pulse Ox O2 Del Method O2 Flow Rate 12/28/23 11:44 36.8 C 88 18 122/71 95 Nasal Cannula 2.0 12/28/23 08:07 37.0 C 86 18 121/70 96 Nasal Cannula 2.0 12/28/23 08:00 Nasal Cannula 2 12/28/23 03:39 37.1 C 81 18 138/70 95 CPAP Laboratory Results Laboratory Results - last 24 hr 12/27/23 12/27/23 12/28/23 16:23 20:16 06:06 WBC 7.03 RBC 4.33 L Hgb 14.3 Hct 43.1 MCV 99.5 MCH 33.0 MCHC 33.2 RDW Std Deviation 49.5 H RDW Coeff of Jessica 13.2 Plt Count 143 MPV 11.3 Sodium 140 Potassium 4.3 Chloride 99 Carbon Dioxide 40 H Anion Gap 1 L BUN 20 Creatinine 0.70 Est Cr Clr Drug Dosing 121.1 Est GFR ( Amer) 100.4 Est GFR (Non-Af Amer) 86.7 BUN/Creatinine Ratio 28.6 H Glucose 107 H POC Glucose 114 H 205 H Calcium 8.8 Magnesium 1.8 12/28/23 12/28/23 07:02 11:03 WBC RBC Hgb Hct MCV MCH MCHC RDW Std Deviation RDW Coeff of Jessica Plt Count MPV Sodium Potassium Chloride Carbon Dioxide Anion Gap BUN Creatinine Est Cr Clr Drug Dosing Est GFR ( Amer) Est GFR (Non-Af Amer) BUN/Creatinine Ratio Glucose POC Glucose 96 164 H Calcium Magnesium PG Care Time/CCT Total # of Minutes Spent Total Time Spent with Patient: Total time spent is greater than 50% in coordination of care (as documented) at patient's floor/unit and/or counseling patient: Coding Level of Care Code 06765 SUB INP/OBS CARE 2/35MIN Diagnoses Urinary tract obstruction by kidney stone N20.0; N13.8 Bacteremia R78.81 Hematuria R31.9 Acute metabolic encephalopathy G93.41 Pneumonia J18.9 Laterality: bilateral Lung location: lower lobe of lung Pneumonia type: due to unspecified organism Complicated UTI (urinary tract infection) N39.0 Sepsis due to Proteus species A41.59 Acute and chronic respiratory failure J96.21; J96.22 Respiratory failure complication: hypoxia and hypercapnia Diabetes mellitus type 2, controlled E11.9 Elevated troponin R79.89 History of DVT (deep vein thrombosis) Z86.718 Obesity hypoventilation syndrome E66.2 Subdural hematoma S06.5XAA Thrombocytopenia D69.6 BPH (benign prostatic hyperplasia) N40.0 Hypertension I10 (5) Pneumonia Laterality: bilateral Lung location: lower lobe of lung Pneumonia type: due to unspecified organism Qualified Code(s): J18.9 - Pneumonia, unspecified organism (8) Acute and chronic respiratory failure Respiratory failure complication: hypoxia and hypercapnia Qualified Code(s): J96.21 - Acute and chronic respiratory failure with hypoxia; J96.22 - Acute and chronic respiratory failure with hypercapnia
--- NOTE | 2023-12-28 16:35 | Urology Progress Note ---
Date of Service December 28, 2023 Assessment & Plan (1) Complicated UTI (urinary tract infection): (2) Hematuria: Plan POD #6 s/p cystoscopy with left ureteral stent placement Urology asked to reevaluate patient today due to hematuria. He is afebrile and hemodynamically stable. Labs reviewedWBC 7.03, hemoglobin 14.3, creatinine 0.70. He continues on antibiotics for UTI / bacteremia. Patient failed a voiding trial yesterday 3/ and the Foster catheter was replaced. He subsequently developed hematuria and CBI was initiated. The Foster catheter is draining pink-tinged urine today with CBI on slow drip. Continue CBI for now and monitor, can titrate as needed. Will likely trial stopping CBI tomorrow morning. Continue supportive care. Urology will follow along. Admission and Anticipated Discharge Date Admission Date: December 21, 2023 Subjective Patient examined at bedside this afternoon. Awake, sitting in bedside chair on arrival. No acute distress. Foster draining pink-tinged urine with CBI on slow drip. Denied any significant pain or discomfort at present. Denied fever, chills, nausea, vomiting. Review of Systems Constitutional: as per Subjective / HPI Genitourinary: + as per Subjective / HPI Physical Exam Constitutional: no acute distress Respiratory: no respiratory distress and no labored breathing Neurologic: awake Psychiatric: A+Ox3, euthymic affect Genitourinary: Foster draining pink-tinged urine with CBI on slow Results & Data Vital Signs (Past 12 Hours) Vital Signs Temp Pulse Pulse Resp BP Pulse Ox O2 Del Method 12/28/23 15:50 89 12/28/23 15:01 36.7 C 94 H 18 124/66 96 Nasal Cannula 12/28/23 11:44 36.8 C 88 18 122/71 95 Nasal Cannula 12/28/23 08:07 37.0 C 86 18 121/70 96 Nasal Cannula 12/28/23 08:00 Nasal Cannula O2 Flow Rate 12/28/23 15:50 12/28/23 15:01 2.0 12/28/23 11:44 2.0 12/28/23 08:07 2.0 12/28/23 08:00 2 PG Care Time/CCT Total # of Minutes Spent Total Time Spent with Patient: Total time spent is greater than 50% in coordination of care (as documented) at patient's floor/unit and/or counseling patient: Coding Level of Care Code 79710 SUB INP/OBS CARE MIN Diagnoses Complicated UTI (urinary tract infection) N39.0 Hematuria R31.9
[2023-12-29 06:27] LABS: Hematocrit (blood only) 40.1 % (42.0-52.0); Hemoglobin 13.3 g/dl (14.0-18.0)
[2023-12-29 06:48] LABS: BUN Creatinine Ratio 24.6 (10-20); Calcium 8.5 mg/dl (8.6-10.3); Creatinine Clr Calc Pharmacy 130.3 ml/min; Est GFR (African American) 103.5 ml/min; Est GFR (Non-African American) 89.3 ml/min; Potassium 4.4 mmol/L (3.5-5.1)
--- NOTE | 2023-12-29 09:41 | Urology Progress Note ---
Date of Service December 29, 2023 Assessment & Plan (1) Complicated UTI (urinary tract infection): (2) Hematuria: Plan 83 yo/M admitted for acute and chronic respiratory failure and UTI/bacteremia; found to have obstructing left ureteral calculi. POD #7 s/p cystoscopy with left ureteral stent placement He is afebrile and hemodynamically stable. Labs reviewed hemoglobin 13.3, creatinine 0.65. He continues on Ciprofloxacin for UTI / bacteremia. Foster catheter is draining pink-tinged urine today with CBI on slow drip. Will clamp CBI this morning and monitor - Nursing aware. Can restart CBI if needed. Continue supportive care. Maintain Foster catheter. Urology will follow. Admission and Anticipated Discharge Date Admission Date: December 21, 2023 Subjective Patient examined at bedside this AM. Awake, resting in bed on arrival. No acute distress. Denies any pain or discomfort at present. Foster draining pink- tinged urine with CBI on slow drip. Denies f/c/n/v. Review of Systems Constitutional: as per Subjective / HPI Genitourinary: + as per Subjective / HPI Physical Exam Constitutional: no acute distress Respiratory: no respiratory distress and no labored breathing Neurologic: awake Psychiatric: A+Ox3, euthymic affect Genitourinary: Foster intact draining pink tinged urine with CBI on slow drip Results & Data Vital Signs (Past 12 Hours) Vital Signs Temp Pulse Pulse Resp BP BP Pulse Ox 12/29/23 08:00 12/29/23 07:16 36.9 C 83 20 132/91 96 12/29/23 02:46 36.8 C 85 18 122/78 96 12/28/23 23:04 36.6 C 81 18 123/75 96 12/28/23 22:01 85 O2 Del Method O2 Flow Rate 12/29/23 08:00 CPAP 4 12/29/23 07:16 BiPAP 12/29/23 02:46 CPAP 12/28/23 23:04 Nasal Cannula 12/28/23 22:01 PG Care Time/CCT Total # of Minutes Spent Total Time Spent with Patient: Total time spent is greater than 50% in coordination of care (as documented) at patient's floor/unit and/or counseling patient: Coding Level of Care Code 32654 SUB INP/OBS CARE 2/35MIN Diagnoses Complicated UTI (urinary tract infection) N39.0 Hematuria R31.9
--- NOTE | 2023-12-29 17:29 | Hospitalist Progress Note ---
Date of Service December 29, 2023 Assessment & Plan (1) Urinary tract obstruction by kidney stone: Plan: POD #7 s/p cystoscopy with deployment of L ureteral stent by Dr Willett for left-sided mid-ureteral stone Creatinine cont to remain stable 0.65 Small removed for trial of void on 3/3 - did not go well - significant hematuria and retention after small removal see below Cont abx for Proteus mirabilis UTI / bacteremia -- day #9 of effective abx therapy Definitive stone treatment as outpatient in 2 weeks post-d/c (2) Bacteremia: Plan: 2nd to proteus source - urinary tract repeat blood cx's x 2 negative cont IV cipro he is day #8-9 of effective abx for his pneumonia/bacteremia/UTI plan 14 days of Rx with day #1 of antibiotics being his admission date at hospital d/c can revert to PO cipro to finish his course for the bacteremia at home (3) Hematuria: Plan: 2nd to #1 urine had been clearing nicely over the previous few days small was removed 3/3 voiding trial; prior to discontinuation the small was hand irrigated without any clots obtained upon discontinuation he was voiding small amounts of bloody urine with clots he ultimately was retaining and a 3-way small was placed back CBI was initiated due to the number of clots - CBI held today, assess response. reviewed recommendations in urology note (4) Acute metabolic encephalopathy: Plan: 2nd to pneumonia/UTI/obstructing kidney stone/bacteremia resolved (5) Pneumonia: Plan: b/l lower lobes clinically resolved initially was on cefepime for about 48 hours, then changed to IV levaquin completed 8 days of appropriate antibiotics for pneumonia (6) Complicated UTI (urinary tract infection): Plan: Proteus UTI in the setting of an obstructing kidney stone on left -- see above (7) Sepsis due to Proteus species: Plan: see above sepsis resolved (8) Acute and chronic respiratory failure: Plan: acute resp failure - 2nd to pneumonia; possible decompensated diastolic CHF as well - s/p lasix on hospital day #1 acute component improved/resolved resp biofire negative at admission chronic resp failure - OHS/ABDULLAHI; son reports he does NOT typically use daytime O2; he is on BiPAP at night only will get formal 2-step prior to d/c home he has had numerous documented episodes of o2 sats <88% in room air at rest just need to determine amount of O2 needed with activity (9) Diabetes mellitus type 2, controlled: Plan: Hba1c 6.4% this admission hold metformin controlled - BG at goal 3/5 cont lantus-novolog BSGs ac/hs (10) Elevated troponin: Plan: Peak troponin 184.5 Likely myocardial demand ischemia in the setting of bacteremia/UTI/obstructing kidney stone on left No evidence of ACS Echo with preserved LV function and no regional wall motion abnormalities (11) History of DVT (deep vein thrombosis): Plan: Provoked event - 2018 Not currently on anticoagulation In light of chronic edema could consider dopplers to r/o a new DVT but he reports the edema is unchanged from his chronic baseline thus defer for now (12) Obesity hypoventilation syndrome: Plan: son brought his home BIPAP unit in order placed to allow home BIPAP at HS blend O2 into unit as needed (13) Subdural hematoma: Plan: previous history of - 2022 CT head this admission without any ICH/SDH (14) Thrombocytopenia: Plan: related to infection and resolved (15) BPH (benign prostatic hyperplasia): Plan: cont flomax has small in place at this time see "hematuria" above (16) Hypertension: Plan: hold HCTZ BPs controlled w/o such Plan DVT proph - lovenox daily in light of DVT history I believe the high risk of DVT formation and need for prophylaxis outweighs any risk of potentially causing more hematuria further, H/H remain stable over the last 3 days thus, cautiously cont the lovenox appreciate PT/OT evals rehab advised but he continues to refuse, I discussed with him 12/28 pt's son updated by phone 3/ dispo - home with home PT/OT timing uncertain - next 48 hours Admission and Anticipated Discharge Date Admission Date: December 21, 2023 Subjective Sitting in chair, says he feels well. No dyspnea cough chest or abdominal pain. Urine is pink tinged. Physical Exam 2 Physical Exam: PHYSICAL EXAMINATION Last 24h vital signs reviewed, see documentation in flowsheet General: comfortable appearing, no distress, sitting up in the chair awake and alert HEENT: Normocephalic, atraumatic, pupils round and equal, sclerae anicteric, no conjunctival injection, moist mucus membranes Lungs: Normal respiratory effort. Clear to auscultation bilaterally. No RRW Heart: Regular rate and rhythm, no murmurs. No JVD Abdomen: Soft, nontender, nondistended. Bowel sounds present. Extremities: Warm, dry, well-perfused. 2+ lower extremity edema : pink-tinged urine in Small, there is 1 blood clot in the bag and a mild amount of debris in the tubing Neuro: Alert and oriented x 4, face symmetric, moves 4 extremities well Psych: Normal affect and behavior Results & Data Results & Data Vital Signs (Past 12 Hours) Vital Signs Temp Pulse Pulse Resp BP Pulse Ox O2 Del Method 12/29/23 15:13 85 12/29/23 14:54 36.7 C 86 19 122/78 91 Room Air 12/29/23 10:58 82 12/29/23 10:24 36.6 C 86 20 119/77 91 Room Air 12/29/23 08:00 CPAP 12/29/23 07:16 36.9 C 83 20 132/91 96 BiPAP O2 Flow Rate 12/29/23 15:13 12/29/23 14:54 12/29/23 10:58 12/29/23 10:24 12/29/23 08:00 4 12/29/23 07:16 Laboratory Results 12/29/23 05:54 12/29/23 05:54 PG Care Time/CCT Total # of Minutes Spent Total Time Spent with Patient: Total time spent is greater than 50% in coordination of care (as documented) at patient's floor/unit and/or counseling patient: Coding Level of Care Code 87994 SUB INP/OBS CARE 2/35MIN Diagnoses Urinary tract obstruction by kidney stone N20.0; N13.8 Bacteremia R78.81 Hematuria R31.9 Acute metabolic encephalopathy G93.41 Pneumonia J18.9 Laterality: bilateral Lung location: lower lobe of lung Pneumonia type: due to unspecified organism Complicated UTI (urinary tract infection) N39.0 Sepsis due to Proteus species A41.59 Acute and chronic respiratory failure J96.21; J96.22 Respiratory failure complication: hypoxia and hypercapnia Diabetes mellitus type 2, controlled E11.9 Elevated troponin R79.89 History of DVT (deep vein thrombosis) Z86.718 Obesity hypoventilation syndrome E66.2 Subdural hematoma S06.5XAA Thrombocytopenia D69.6 BPH (benign prostatic hyperplasia) N40.0 Hypertension I10 (5) Pneumonia Laterality: bilateral Lung location: lower lobe of lung Pneumonia type: due to unspecified organism Qualified Code(s): J18.9 - Pneumonia, unspecified organism (8) Acute and chronic respiratory failure Respiratory failure complication: hypoxia and hypercapnia Qualified Code(s): J96.21 - Acute and chronic respiratory failure with hypoxia; J96.22 - Acute and chronic respiratory failure with hypercapnia
--- NOTE | 2023-12-30 09:21 | Urology Progress Note ---
Date of Service December 30, 2023 Assessment & Plan (1) Complicated UTI (urinary tract infection): (2) Hematuria: Plan 83 yo/M admitted for acute and chronic respiratory failure and UTI/bacteremia; found to have obstructing left ureteral calculi. POD #8 s/p cystoscopy with left ureteral stent placement Urology asked to reevaluate patient 12/28/23 as he failed a void trial requiring Foster cath replacement and subsequently developed hematuria requiring CBI. He is afebrile and hemodynamically stable. Labs 12/28 reviewed hemoglobin 13.3, creatinine 0.65. He continues on Ciprofloxacin for UTI / bacteremia. CBI was clamped yesterday 12/28. Hematuria improving. Foster catheter currently draining pink-tinged urine off CBI. He may continue to have some intermittent hematuria due to the stent. Continue to monitor. OK to hand irrigate the catheter as needed for clots, retention, suprapubic pain. Continue supportive care and antibiotics. Maintain Foster catheter for at least 7-10 days. Will arrange outpatient follow-up and voiding trial with our service. Urology will follow peripherally. Please call with any further questions or concerns. Admission and Anticipated Discharge Date Admission Date: December 21, 2023 Subjective Patient examined at bedside this AM. Asleep on arrival, awakened to name. No acute distress. Denies any pain or discomfort at present. Foster draining pink- tinged urine off CBI. Denies f/c/n/v. Review of Systems Constitutional: as per Subjective / HPI Genitourinary: + as per Subjective / HPI Physical Exam Constitutional: no acute distress Respiratory: no respiratory distress and no labored breathing Neurologic: awake Psychiatric: Orientation: alert and oriented x 3 Genitourinary: Foster intact draining pink tinged urine Results & Data Vital Signs (Past 12 Hours) Vital Signs Temp Pulse Resp BP BP Pulse Ox O2 Del Method 12/30/23 08:19 36.6 C 83 20 116/87 96 Nasal Cannula 12/30/23 02:58 36.5 C 83 20 118/71 95 Nasal Cannula 12/29/23 22:58 36.7 C 88 18 123/75 90 Nasal Cannula O2 Flow Rate 12/30/23 08:19 3 12/30/23 02:58 4 12/29/23 22:58 PG Care Time/CCT Total # of Minutes Spent Total Time Spent with Patient: Total time spent is greater than 50% in coordination of care (as documented) at patient's floor/unit and/or counseling patient: Coding Level of Care Code 35872 SUB INP/OBS CARE MIN Diagnoses Complicated UTI (urinary tract infection) N39.0 Hematuria R31.9
--- NOTE | 2023-12-30 16:22 | Hospitalist Progress Note ---
Date of Service December 30, 2023 Assessment & Plan (1) Urinary tract obstruction by kidney stone: Plan: 83 y/o admitted with sepsis due to proteus bacteremia related to obstructing left sided ureteral stone Underwent cystoscopy with deployment of L ureteral stent by Dr Willett for left-sided mid-ureteral stone 12/22 Small removed for trial of void on 12/26 - did not go well - significant hematuria and retention 3-way small had to be placed for CBI CBI discontinued AM of 12/28, no recurrent clotting, urine remains pink tinged with few tiny clots Cont abx for Proteus mirabilis UTI / bacteremia day 08/08 Definitive stone treatment as outpatient in 2 weeks post-d/c, has appt 01/10, small will remain in place until that time. Discussed plan with urology 12/29. (2) Bacteremia: Plan: 2nd to proteus source - urinary tract repeat blood cx's x 2 negative change cipro to po, continue antibiotics through 01/03 which completes 14 days (3) Hematuria: Plan: see above (4) Acute metabolic encephalopathy: Plan: 2nd to pneumonia/UTI/obstructing kidney stone/bacteremia resolved (5) Pneumonia: Plan: b/l lower lobes clinically resolved initially was on cefepime for about 48 hours, then changed to IV levaquin completed 8 days of appropriate antibiotics for pneumonia had some persistent hypoxia with exertion this hospital stay, improved and no longer on oxygen. obtained 2-step test today and was normal, did not require supplemental O2 (6) Complicated UTI (urinary tract infection): Plan: Proteus UTI in the setting of an obstructing kidney stone on left -- see above (7) Sepsis due to Proteus species: Plan: see above sepsis resolved (8) Acute and chronic respiratory failure: Plan: acute resp failure - 2nd to pneumonia; possible decompensated acute on chronic diastolic CHF as well - had lasix on hospital day #1 resolved no longer hypoxic on 2-step 3/6 resp biofire negative at admission chronic resp failure - due to OHS/ABDULLAHI; continue nocturnal bipap (9) Diabetes mellitus type 2, controlled: Plan: Hba1c 6.4% this admission hold metformin controlled - BG at goal 3/ cont lantus-novolog BSGs ac/hs (10) Elevated troponin: Plan: Peak troponin 184.5 Likely myocardial demand ischemia in the setting of bacteremia/UTI/obstructing kidney stone on left No evidence of ACS Echo with preserved LV function and no regional wall motion abnormalities (11) History of DVT (deep vein thrombosis): Plan: Provoked event - 2018 Not currently on anticoagulation (12) Obesity hypoventilation syndrome: Plan: cont HS Bipap (13) Subdural hematoma: Plan: previous history of - 2022 CT head this admission without any ICH/SDH (14) Thrombocytopenia: Plan: related to infection and resolved (15) BPH (benign prostatic hyperplasia): Plan: cont flomax has small in place at this time (16) Hypertension: Plan: resume HCTZ Plan DVT proph - lovenox daily Adamantly refused SNF placement for rehab over multiple discussions. Strength has improved however, stood unassisted today, yesterday PT with 1PA to walker pt's son updated by phone 12/27, 12/29 - reviewed plan of care, he has adequate resources for home care and good home set up (multiple lift chairs, grab bars, on one level) plan for discharge tomorrow with PT/OT and RN for small Admission and Anticipated Discharge Date Admission Date: December 21, 2023 Subjective feels much better, legs getting stronger, no cough or dyspnea lymphedema worse because he's missing his compression device eating/drinking well Physical Exam 2 Physical Exam: PHYSICAL EXAMINATION Last 24h vital signs reviewed, see documentation in flowsheet General: comfortable appearing, no distress, sitting up in the chair awake and alert - same today HEENT: Normocephalic, atraumatic, pupils round and equal, sclerae anicteric, no conjunctival injection, moist mucus membranes Lungs: Normal respiratory effort. Clear to auscultation bilaterally. No RRW - unchanged Heart: Regular rate and rhythm, no murmurs. No JVD Abdomen: Soft, nontender, nondistended. Bowel sounds present. Extremities: Warm, dry, well-perfused. 2+ lower extremity edema unchanged : pink-tinged urine in Small, few tiny clots, no debris Neuro: Alert and oriented x 4, face symmetric, moves 4 extremities well Psych: Normal affect and behavior Results & Data Results & Data Vital Signs (Past 12 Hours) Vital Signs Temp Pulse Pulse Pulse Pulse Resp Resp 12/30/23 14:28 36.7 C 94 H 19 12/30/23 14:23 80 12/30/23 14:18 109 H 90 22 12/30/23 10:05 36.6 C 89 20 12/30/23 08:19 36.6 C 83 20 12/30/23 08:00 80 12/30/23 08:00 Resp BP Pulse Ox Pulse Ox Pulse Ox O2 Del Method O2 Flow Rate 12/30/23 14:28 119/64 91 Room Air 12/30/23 14:23 12/30/23 14:18 18 92 93 12/30/23 10:05 129/67 94 Room Air 12/30/23 08:19 116/87 96 Nasal Cannula 3 12/30/23 08:00 12/30/23 08:00 Nasal Cannula 2 Laboratory Results 12/29/23 05:54 12/29/23 05:54 PG Care Time/CCT Total # of Minutes Spent Total Time Spent with Patient: Total time spent is greater than 50% in coordination of care (as documented) at patient's floor/unit and/or counseling patient: Coding Level of Care Code 31717 SUB INP/OBS CARE 2/35MIN Diagnoses Urinary tract obstruction by kidney stone N20.0; N13.8 Bacteremia R78.81 Hematuria R31.9 Acute metabolic encephalopathy G93.41 Pneumonia J18.9 Laterality: bilateral Lung location: lower lobe of lung Pneumonia type: due to unspecified organism Complicated UTI (urinary tract infection) N39.0 Sepsis due to Proteus species A41.59 Acute and chronic respiratory failure J96.21; J96.22 Respiratory failure complication: hypoxia and hypercapnia Diabetes mellitus type 2, controlled E11.9 Elevated troponin R79.89 History of DVT (deep vein thrombosis) Z86.718 Obesity hypoventilation syndrome E66.2 Subdural hematoma S06.5XAA Thrombocytopenia D69.6 BPH (benign prostatic hyperplasia) N40.0 Hypertension I10 (5) Pneumonia Laterality: bilateral Lung location: lower lobe of lung Pneumonia type: due to unspecified organism Qualified Code(s): J18.9 - Pneumonia, unspecified organism (8) Acute and chronic respiratory failure Respiratory failure complication: hypoxia and hypercapnia Qualified Code(s): J96.21 - Acute and chronic respiratory failure with hypoxia; J96.22 - Acute and chronic respiratory failure with hypercapnia
[2023-12-30] MEDS: CIPROFLOXACIN 500 MG TAB PO SCH (21:05)
--- NOTE | 2023-12-31 20:44 | Discharge Summary ---
Date of Service December 31, 2023 Admission HPI Per Admitting Provider Erik is an 83-year-old male with PMH of T2DM, gout, dyslipidemia, HTN, OA, pickwickian syndrome, depression with anxiety, DVT, BPH, hemochromatosis, subdural hematoma, and acquired lymphedema. He presented via EMS for worsening SOB times several weeks. Per EMS, patient was 82% on RA. Patient is a poor historian at baseline. He reports that he was feeling "sick" this morning, and had a bit of a fever, but is unable to provide a reason why. He notes that he usually wears a BiPAP at night. Patient is hypertensive at 154/74 and SpO2 is 92% on CPAP at time of admission. ED course: Started on CPAP Vancomycin 2750 mg IV Cefepime 2000 mg IV DuoNeb 3 mL Magnesium sulfate 1 g IV Difficult to obtain ROS in patient's current state, however patient denies chest pain, fever at present, chills, SOB at rest. Spoke on the phone with patient's son/POA (Bassam) who the patient lives with. Patient's son reports that he has been having intermittent chills this past week, and that today he was "feeling sick" and not making sense. Son also reports that he had a fever this morning, and that when he went to put the pulse ox on it was around 74%. Patient's son manages the patient's medications and reports that he took all of his regular morning meds, and that there have been no recent change in medications. He reports that the patient was previously on anticoagulation for DVT PPx following a hip fracture, but is not currently on anticoagulation. Son reconfirms CODE STATUS as DNR/DNI. Principal Diagnosis Sepsis due to proteus bateremia from UTI with obstructing ureteral stone Discharge Exam PHYSICAL EXAMINATION Last 24h vital signs reviewed, see documentation in flowsheet exam unchanged except urine barely pink tinged, now yellow no clots in smlal General: comfortable appearing, no distress, sitting up in the chair awake and alert HEENT: Normocephalic, atraumatic, pupils round and equal, sclerae anicteric, no conjunctival injection, moist mucus membranes Lungs: Normal respiratory effort. Clear to auscultation bilaterally. No RRW - unchanged Heart: Regular rate and rhythm, no murmurs. No JVD Abdomen: Soft, nontender, nondistended. Bowel sounds present. Extremities: Warm, dry, well-perfused. 2+ lower extremity edema unchanged Neuro: Alert and oriented x 4, face symmetric, moves 4 extremities well Psych: Normal affect and behavior Discharge Data Allergies Allergy/AdvReac Type Severity Reaction Status Date / Time No Known Allergies Allergy Unverified 03/26/23 10:15 Consultations 12/21/23 20:54 ED Decision to Admit Stat 12/22/23 12:59 Consult Urology Routine Procedures Performed Operation Date: 12/22/23 09:30 Actual Procedures p Cystoscopy, Retrograde Pyelogram, Left Ureteral Stent Placement(Left) - Pb Willett MD Ordered Studies 12/21/23 20:13 CT angio chest PE protocol Stat CT head/brain wo con Stat 12/22/23 10:34 CT Abd and Pelvis [CT abd pelvis wo con] Routine 12/22/23 15:30 FL KUB Routine Chest X-Ray 12/21/23 18:19 XR chest 1V portable CLINICAL HISTORY: Sepsis TECHNIQUE: Single frontal radiograph of the chest was obtained. Comparison: Comparison is made to chest radiograph 03/23/2023 FINDINGS: No lines and tubes are seen. Cardiomegaly is noted. Prominence and cephalization of the vasculature is seen. Airspace opacities in the bilateral lower lungs cannot be excluded. Small bilateral pleural effusions are seen. IMPRESSION: 1. Cardiomegaly and mild pulmonary edema. 2. Small bilateral pleural effusions. 3. Cannot exclude airspace opacities in the bilateral lower lungs. ACT 112: Negative or not required by law. Electronically signed by: Kenneth Lanza M.D. 12/21/2023 7:18 PM Chest CTA 12/21/23 20:13 Exam(s): CTA CHEST IV Amt: 118 cc opti 320 EXAM: CT Angiography Chest With Intravenous Contrast CLINICAL HISTORY: Reason for exam: sob, elevated trop, r/o PE. TECHNIQUE: Axial computed tomographic angiography images of the chest with intravenous contrast. Automated exposure control was utilized for the study. A dose lowering technique was utilized adhering to the principles of ALARA. MIP reconstructed images were created and reviewed. COMPARISON: CT chest angiogram 12/20/2017. FINDINGS: Pulmonary arteries: Heterogeneous opacification of the pulmonary arteries. No definite pulmonary embolism identified. Aorta: No acute findings. No thoracic aortic aneurysm. Lungs: Bilateral lower lobe opacities. Pleural space: Unremarkable. No significant effusion. No pneumothorax. Heart: Severe coronary artery atherosclerotic calcifications. No cardiomegaly. No significant pericardial effusion. No evidence of RV dysfunction. Bones/joints: Degenerative change in the spine. No acute fracture. No dislocation. Soft tissues: Unremarkable. Lymph nodes: Unremarkable. No enlarged lymph nodes. Gallbladder and bile ducts: Cholecystectomy. Upper abdomen: Elevation the left hemidiaphragm. IMPRESSION: 1. Heterogeneous opacification of the pulmonary arteries. No definite pulmonary embolism identified. 2. Bilateral lower lobe opacities. This may represent atelectasis, aspiration, or pneumonia. 3. Severe coronary artery atherosclerotic calcifications. Electronically signed by: Amilcar Justin MD 12/21/23 22:[address] 12/21/23 20:13 Exam(s): CT HEAD Without Contrast EXAM: CT Head Without Intravenous Contrast CLINICAL HISTORY: Reason for exam: confusion. TECHNIQUE: Axial computed tomography images of the head/brain without intravenous contrast. CTDI is mGy and DLP is mGy-cm. Automated exposure control was utilized for the study. A dose lowering technique was utilized adhering to the principles of ALARA. COMPARISON: CT head 03/29/2023. FINDINGS: Brain: Global parenchymal volume loss chronic microvascular ischemic changes. No hemorrhage. Ventricles: No ventriculomegaly. Bones/joints: Unremarkable. No acute fracture. Soft tissues: Unremarkable. Sinuses: Unremarkable as visualized. Mastoid air cells: Unremarkable as visualized. No mastoid effusion. IMPRESSION: 1. No intracranial hemorrhage or other acute intracranial abnormality. 2. Global parenchymal volume loss with chronic microvascular ischemic changes. Electronically signed by: Amilcar Justin MD 12/21/23 22:18 PM Abdomen/Pelvis CT 12/22/23 10:34 CT abd pelvis wo con CLINICAL HISTORY: UTI/sepsis; eval obstructing stone, etc TECHNIQUE: Helical axial images of the abdomen and pelvis were obtained. Automated dose lowering techniques and/or adjustment according to patient size were utilized for this exam. This exam was performed without intravenous contrast. CT DOSE: 1746.61 mGy.cm COMPARISON: Comparison is made to CT abdomen pelvis 01/30/2018 FINDINGS: Lower chest: Bibasilar atelectasis versus scarring is seen. Severe atherosclerotic disease is seen. Liver: Unremarkable. No focal lesions are seen. Gallbladder and biliary tree: Patient is status post cholecystectomy. No intra- or extrahepatic biliary ductal dilation. Pancreas: Unremarkable, no focal lesions. Spleen: Unremarkable. Adrenals: Unremarkable. Kidneys and ureters: Left-sided nephroureterolithiasis is seen with multiple ureteral stones including a 6 mm stone in the mid ureter which may cause mild obstruction. Bladder: Small catheter is seen. Reproductive organs: Unremarkable. Bowel: Diverticulosis is seen without diverticulitis. The appendix is normal. Lymph nodes Retroperitoneal: Unremarkable. Pelvic: Unremarkable. Mesenteric: Unremarkable. Peritoneum: Normal. Vessels: Unremarkable. Abdominal wall: Unremarkable. Bones: Degenerative changes in the visualized spine. Posterior fixation hardware spans L3-L4. Right femoral nail is seen. IMPRESSION: Likely obstructive left ureteral stone with very mild hydroureteronephrosis. Additional nonobstructive stones are seen. Additional findings as above. ACT 112: Negative or not required by law. Electronically signed by: Kenneth Lanza M.D. 12/22/2023 11:58 AM Abdomen Fluoroscopy 12/22/23 15:30 FL KUB CLINICAL HISTORY: LEFT STENT COMPARISON STUDY: CT of the abdomen and pelvis performed earlier today. FLUOROSCOPY TIME: 40.9 seconds. Ka, r: 26.12 mGy FLUOROSCOPIC IMAGES: 1. FINDINGS: Fluoroscopy was provided during left retrograde exam with left ureteral stent placement. Proximal aspect of the left ureteral stent projects over the left collecting system. IMPRESSION: Fluoroscopy provided during left retrograde exam with left ureteral stent placement. ACT 112: Negative or not required by law. Electronically signed by: Charlie Yeager M.D. 12/22/2023 4:43 PM 12/29/23 05:54 12/29/23 05:54 Hospital Course (1) Urinary tract obstruction by kidney stone: 83 y/o admitted with sepsis due to proteus bacteremia related to obstructing left sided ureteral stone Underwent cystoscopy with deployment of L ureteral stent by Dr Willett for left-sided mid-ureteral stone 12/22 Small removed for trial of void on 12/26 - did not go well - significant hematuria and retention 3-way small had to be placed for CBI CBI discontinued AM of 12/28, no recurrent clotting, urine remains only slightly pink tinged with occasional tiny clots Cont abx for Proteus mirabilis UTI / bacteremia - will complete 14d course. IV cipro changed to po on discharge Definitive stone treatment as outpatient in 2 weeks post-d/c, has appt 3/18, small will remain in place until that time. Discussed plan with urology 12/29. (2) Bacteremia: 2nd to proteus source - urinary tract repeat blood cx's x 2 negative change cipro to po, continue antibiotics through 01/03 which completes 14 days (3) Hematuria: see above (4) Acute metabolic encephalopathy: 2nd to pneumonia/UTI/obstructing kidney stone/bacteremia resolved (5) Pneumonia: b/l lower lobes clinically resolved initially was on cefepime for about 48 hours, then changed to IV levaquin completed 8 days of appropriate antibiotics for pneumonia had some persistent hypoxia with exertion this hospital stay, improved and no longer on oxygen. obtained 2-step test 12/29 and was normal, did not require supplemental O2 (6) Complicated UTI (urinary tract infection): Proteus UTI in the setting of an obstructing kidney stone on left -- see above (7) Sepsis due to Proteus species: see above sepsis resolved (8) Acute and chronic respiratory failure: acute resp failure - 2nd to pneumonia; possible decompensated acute on chronic diastolic CHF as well - had lasix on hospital day #1 resolved no longer hypoxic on 2-step 12/29 resp biofire negative at admission chronic resp failure - due to OHS/ABDULLAHI; continue nocturnal bipap (9) Diabetes mellitus type 2, controlled: Hba1c 6.4% this admission (10) Elevated troponin: Peak troponin 184.5 Likely myocardial demand ischemia in the setting of bacteremia/UTI/obstructing kidney stone on left No evidence of ACS Echo with preserved LV function and no regional wall motion abnormalities (11) History of DVT (deep vein thrombosis): Provoked event - 2018 Not currently on anticoagulation (12) Obesity hypoventilation syndrome: cont HS Bipap (13) Subdural hematoma: previous history of - 2022 CT head this admission without any ICH/SDH (14) Thrombocytopenia: related to infection and resolved (15) BPH (benign prostatic hyperplasia): cont flomax has small in place at this time (16) Hypertension: resume HCTZ Plan DVT proph - lovenox daily Adamantly refused SNF placement for rehab over multiple discussions. Strength has improved however, stood unassisted today, yesterday PT with 1PA to walker pt's son updated by phone 12/27, 12/29 - reviewed plan of care, he has adequate resources for home care and good home set up (multiple lift chairs, grab bars, on one level) discharge home with HH PT/OT and RN for small Total Time Total Time Spent Total Time Spent (In Minutes): 25 minutes Discharge Plan Discharge Items Patient Disposition: Home - Home Health Services Reason For Visit: HYPOXIA, UTI, AMS Discharge Diagnosis: Proteus bacteremia due to UTI, Obstructing ureteral stone, Pneumonia Activity: Resume your previous activity Non-emergency contact: Primary Care Provider and Urologist Call non-emergency contact if: you have any medication questions, your symptoms worsen and you have a fever Follow-up/Referrals: Fortino Bravo CRNP [Primary Care Provider] - 01/12/24 8:20 am Radha Madrid CRNP [Nurse Practitioner] - 01/11/24 10:00 am Diet: Carb Consistent or DM2 and Low Sodium (2gm) Addtl Attending Provider Instructions: You were treated for urinary tract infection with obstructing ureteral kidney stone. This infection was caused by bacteria called Proteus that also crossed into your bloodstream. You may also have had pneumonia. -ureteral stent was placed, follow up with Urology as scheduled for stone treatment -small catheter will remain in place until removed by urologist -you may have ongoing pink urine - see below -continue taking antibiotic (ciprofloxacin) until it runs out continue your bipap at night Home health PT and OT are ordered Addtl Sql Ssis Developer Provider Instructions: Please call the urology office at [phone] with any questions, concerns or need to reschedule appointments for any reason. We are happy to assist you Small Catheter care: Keep the catheter well secured with either a leg back or leg strap with large bag. Empty your bag when it's about half full. You may notice some blood in the bag. This is normal with a stent in place. Use mild soap (such as Dove or Dial) and water to wash the catheter and the head of your penis daily, or more frequently if needed. You may shower as normal. Please avoid tub baths or soaking until catheter removed. While you have a ureteral stent in place: Some discomfort is normal. Certain movements may trigger pain or a feeling that you need to urinate. You may also feel mild soreness or pressure before or during urination. Your urine may be slightly pink or red. This is due to bleeding caused by minor irritation from the stent. This may happen on and off while you have the stent, it is not harmful and is to be expected. Medication to help minimize discomfort or bladder spasms, or to prevent infection may be prescribed. Take this as directed. Drink plenty of fluids to help flush out your urinary tract. When to call [facility] Urology at [phone]: You are constantly leaking urine Fever of 101F or higher, chills, nausea, or vomiting Your pain is not relieved with medication The end of the stent comes out of your urethra Heavy bleeding, clots, or bright red blood from the catheter Catheter that falls out or stops draining Pending Studies at Discharge: No Stand-Alone Forms: My [facility] Angry Citizen, Smoking Cessation Medications and DC Order Prescriptions: New ciprofloxacin HCl 500 mg Tablet 500 mg PO BID Qty: 9 0RF Continued hydrochlorothiazide 25 mg tablet 25 mg PO DAILY Qty: 90 1RF atorvastatin 40 mg tablet 20 mg PO HS Rx Instructions: 40 mg PO TAKE ONE-HALF TABLET HS; tamsulosin 0.4 mg capsule 0.4 mg PO DAILY aspirin 81 mg tablet,delayed release (DR/EC) 81 mg PO DAILY Hold Instructions: hold unless otherwise instructed to resume by your outpatient doctors multivitamin tablet 1 tab PO DAILY metformin 500 mg Tablet 500 mg PO BID venlafaxine 150 mg Capsule,Extended Release 24hr 150 mg PO DAILY hydroxyzine HCl 10 mg Tablet 10 mg PO QID PRN (Reason: Anxiety) Rx Instructions: Usually takes at bedtime pregabalin 75 mg Capsule 75 mg PO BID omega 4-bde-bxp-fish oil [Fish Oil] 1,000 mg (120 mg-180 mg) Capsule 1 cap PO DAILY Discharge Orders: Discharge Order (Routine); Ordered 12/31/23 Ordered By: Araceli Hernandez/Other Patient Handouts: Managing Type 2 Diabetes, Urinary Catheter Bag Empty Clean, Special Foot Care for Diabetes, ED Small Catheter, Care Admission Data Admit Date/Time: 12/21/23 22:36 Attending Provider: Araceli Browning Admit Provider: Curt Chaney Primary Care Provider: Fortino Bravo Other Providers: Curt Chaney; Nishant Wolf [facility] Other Interventions: Discharge Summary Assessment (RN) Last Done: 12/31/23 09:42 Coding Level of Care Code 64027 IN/OBS DISCH 30 MIN/LESS Diagnoses Urinary tract obstruction by kidney stone N20.0; N13.8 Bacteremia R78.81 Hematuria R31.9 Acute metabolic encephalopathy G93.41 Pneumonia J18.9 Laterality: bilateral Lung location: lower lobe of lung Pneumonia type: due to unspecified organism Complicated UTI (urinary tract infection) N39.0 Sepsis due to Proteus species A41.59 Acute and chronic respiratory failure J96.21; J96.22 Respiratory failure complication: hypoxia and hypercapnia Diabetes mellitus type 2, controlled E11.9 Elevated troponin R79.89 History of DVT (deep vein thrombosis) Z86.718 Obesity hypoventilation syndrome E66.2 Subdural hematoma S06.5XAA Thrombocytopenia D69.6 BPH (benign prostatic hyperplasia) N40.0 Hypertension I10
== END 2023-12-31 10:58 | disposition home health service (06) | DRG 853 ==
LOC: ED 18:08 → EDINP 22:36 → SUATTDRO 22:36 → EDINP 12-22 14:50 → 2E 12-22 17:35

== ENCOUNTER 2024-01-12 21:32 | Inpatient (IN) ==
--- NOTE | 2024-01-12 22:21 | Emergency Department Note ---
Impression & Plan AMS (altered mental status), Acute UTI (urinary tract infection), Acute hypotension, Severe sepsis, Acute hypoxemic respiratory failure, Acidosis, Acute exacerbation of CHF (congestive heart failure), Non-ST elevation OR (NSTEMI) ED Provider Note HISTORY OF PRESENT ILLNESS: Patient is an 83-year-old male presenting with altered mental status. History is obtained via EMS, as patient is very confused and unable to provide any history. They report that they were called by patient's son for his progressively worsening weakness throughout the day. Patient was admitted to [facility] recently and was just discharged on 12/31/2023. Patient reportedly had a follow-up appointment today but there was a scheduling conflict and son reports that the patient became more altered and very weak, prompting him to call 911. Patient reportedly was unable to get himself out of the chair per EMS. Patient is alert to self only. ROS: as above PHYSICAL EXAM: Constitutional: Patient appears in no acute distress. HENT: Head: Normocephalic and atraumatic. Eyes: EOMI, PERRL Mouth/Throat: Mucous membranes moist. Neck: Trachea midline. Neck supple. Cardiovascular: RRR, No murmurs, rubs or gallops. Intact distal pulses. Pulmonary/Chest: No respiratory distress. Equal lung sounds bilaterally. Patient is hypoxic on room air to 79%. He was placed on a nonrebreather. Abdominal: Abdomen soft, no tenderness, rebound or guarding. Foster catheter in place. Musculoskeletal: No edema, tenderness or deformity noted. Skin: Warm and dry. No rash, erythema, pallor or cyanosis Psychiatric: Appropriate mood and affect for situation. Neurological: Alert but confused. CN II-XII grossly intact, moving all extremities spontaneously MDM: - Vitals signs showed borderline tachycardia (HR 91) and hypoxia on room air. He was started on 15 L nonrebreather. - Initial VBG showed respiratory acidosis, with pH 7.20 and PCO2 77 mmHG. Patient initiated on BiPAP. - History obtained via EMS, given patient's confusion. History as above. - Chronic conditions affecting care: HTN; HLD; obesity hypoventilation syndrome; morbid obesity; thrombocytopenia - Differential diagnoses include, but are not limited to: pneumonia; UTI; bacteremia; electrolyte abnormality; CVA; intracranial hemorrhage; ACS - Order placed for continuous cardiac monitoring. At this time, monitor showed rate of 78 bpm with normal sinus rhythm, per my interpretation. - External medical records reviewed. EMS run sheet was reviewed. Patient was hypoxic on their arrival and started on supplemental nasal cannula. - EKG interpreted by myself showed normal sinus rhythm. Rate 84 bpm. QT 414. No acute ischemic changes. Noted to have a bifascicular block which has been noted on previous EKGs. - Laboratory workup interpreted by myself showed normal WBC; stable electrolytes; low albumin (2.9); normal procalcitonin; elevated BNP (368); elevated troponin (383.9); normal lactate - UA showed infection. Patient given 2g IV rocephin for antibiotic coverage. - Repeat blood pressures became hypotensive on bipap. May be secondary to increased intrathoracic pressure and decreased pre-load in setting of BiPAP use. - Patient was only given 2L NS for fluid resuscitation, given his history of heart failure and his elevated BNP on today's workup. Previous echo showed left ventricular hypertrophy and EF of 55-60% with grade 1 diastolic dysfunction. - CXR negative for pneumonia, per my interpretation - Repeat VBG after 2 hours on BiPAP showed worsening acidosis with pH 7.18 and pCO2 79 mmHg. - I called and spoke with patient's son and emergency contact, Bassam, at 1:03 AM on 01/13/2024. He confirms that his father is DNR/DNI. However, he reports that the patient would be agreeable to antibiotics and vasopressor therapy. He states that if the patient's heart stops or if he is unable to support his respiratory drive, the patient would not want CPR and would not want to be intubated. - Patient's pressures were still on the hypotensive side, so Levophed was ordered. Repeat assessment for Levophed initiation showed a systolic blood pressure of 98. Requested nursing staff get Levophed at bedside in case the patient has any further hypotensive episodes. - 2 amps of bicarb were ordered for the patient's acidosis. - CT head wo contrast negative for acute intracranial pathology. - Discussion was had with case therapist about patient's case and need for admission - Hospitalist consulted for admission [facility]. I have personally spent 61 minutes of critical care time in the direct management of this patient. This includes bedside care, interpretation of diagnostic studies, and testing, discussion with consultants, patient, and family members, and other required patient management activities. This 61 minutes is in excess of all separately billable procedures. ASSESSMENT AND PLAN: Diagnosis: altered mental status; acute UTI; acute hypotension; severe sepsis; acute hypoxemic respiratory failure; acidosis; CHF exacerbation; NSTEMI Plan: Admit Past Med/Surg History Medical History History of DVT (deep vein thrombosis) Acquired lymphedema Encounter for pre-operative examination Thrombocytopenia Subdural hematoma Morbid obesity with BMI of 45.0-49.9, adult Lumbago with sciatica, right side Neuropathy Olecranon bursitis of left elbow BPH (benign prostatic hyperplasia) Hemochromatosis Depression with anxiety Arthritis Anxiety DVT (deep venous thrombosis) Chronic respiratory failure with hypoxia, on home oxygen therapy Obesity hypoventilation syndrome Paralysis of diaphragm nerve Osteoarthritis Hypertension Dyslipidemia Gout Surgical History Hx of knee surgery H/O umbilical hernia repair Hx of cholecystectomy Right wrist fracture Fracture of right hip Family History Mother Lung cancer Lung disease Brother Lung cancer Lung disease Denies family history of Ovarian cancer Prostate cancer Myocardial infarction Breast cancer Colorectal cancer Social History Smoking Status: Unknown if ever smoked Second Hand Exposure: No; Do You Dip or Chew Tobacco: No; Hx Alcohol Use: No Hx Substance Use: No Preferred Language: Lao Communication Ability: Effective Visual Impairment: No Limitations Hearing Ability: Normal Operator Supply Required: No Beliefs That Will Affect Care: None marital status: / Current Living Situation: Family and Other Current Living Situation Comment: Live with son current occupational status: retired 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 How many Children do You have: 2 Feels Safe at Home: Yes Childhood Exposure to Second-Hand Smoke: No Diet: regular caffeine: Yes during the past year weight has: remained stable Dental Care, Regularly: No Physical Activity Frequency: Daily Seatbelt Use: always Sunscreen Use: No Assistive Devices: Cane, CPAP, Denture - Lower and Walker Allergies Allergies Allergy/AdvReac Type Severity Reaction Status Date / Time No Known Allergies Allergy Unverified 03/26/23 10:15 Home Meds Home Medications Medication Instructions Recorded Confirmed aspirin 81 mg tablet,delayed 81 mg PO DAILY 10/27/19 12/21/23 release atorvastatin 40 mg tablet 20 mg PO HS 10/27/19 12/21/23 multivitamin 1 tab PO DAILY 10/27/19 12/21/23 tamsulosin 0.4 mg capsule 0.4 mg PO DAILY 10/27/19 12/21/23 hydroxyzine HCl 10 mg tablet 10 mg PO QID PRN Anxiety 03/26/23 12/21/23 metformin 500 mg tablet 500 mg PO BID 03/26/23 12/21/23 omega [id number] oil 1,000 mg 1 cap PO DAILY 03/26/23 12/21/23 (120 mg-180 mg) capsule (Fish Oil) pregabalin 75 mg capsule 75 mg PO BID 03/26/23 12/21/23 venlafaxine 150 mg 150 mg PO DAILY 03/26/23 12/21/23 capsule,extended release 24 hr Previous Rx's Medication Instructions Recorded hydrochlorothiazide 25 mg tablet 25 mg PO DAILY #90 tabs 04/09/23 ciprofloxacin HCl 500 mg tablet 500 mg PO BID #9 tabs 12/30/23 Results & Data (ED) Vital Signs Vital Signs - 24 hr 01/12/24 21:53 01/12/24 21:54 01/12/24 21:54 Temperature Temperature Source Pulse Rate 86 Pulse Rate [Apical] Pulse Rate from SpO2 Sensor Pulse Rhythm Respiratory Rate 25 H Respiratory Effort / Characteristics Short of Breath Respiratory Depth Shallow Respiratory Pattern Rapid/Shallow Blood Pressure 101/62 Blood Pressure [Right Arm] Blood Pressure Mean 75 Blood Pressure Mean [Right Arm] Blood Pressure Position Semi-fowlers Blood Pressure Position [Right Arm] Pulse Oximetry 96 Oxygen Delivery Method Non-rebreather Non-rebreather Oxygen Flow Rate 15 15 Fraction of Inspired Oxygen SaO2/FiO2 Ratio Sepsis Recent Fever Within 48 Hours No Sepsis New/Unexplained Change in Mental Status Yes Sepsis Action Taken by Nursing Physician Notified 01/12/24 21:54 01/12/24 22:37 01/12/24 22:56 Temperature 37.2 C Temperature Source Axillary Pulse Rate Pulse Rate [Apical] 91 H Pulse Rate from SpO2 Sensor Pulse Rhythm Respiratory Rate 15 17 Respiratory Effort / Characteristics Non-Labored Spontaneous Non-Labored Spontaneous Respiratory Depth Normal Normal Respiratory Pattern Regular Regular Blood Pressure Blood Pressure [Right Arm] 103/49 L Blood Pressure Mean Blood Pressure Mean [Right Arm] 67 Blood Pressure Position Blood Pressure Position [Right Arm] Semi-fowlers Pulse Oximetry 99 100 Oxygen Delivery Method Non-rebreather Non-rebreather Oxygen Flow Rate 15 Fraction of Inspired Oxygen SaO2/FiO2 Ratio Sepsis Recent Fever Within 48 Hours Sepsis New/Unexplained Change in Mental Status Sepsis Action Taken by Nursing 01/12/24 23:00 01/12/24 23:00 01/12/24 23:00 Temperature Temperature Source Pulse Rate 75 87 Pulse Rate [Apical] 75 Pulse Rate from SpO2 Sensor 87 Pulse Rhythm Regular Respiratory Rate 17 17 16 Respiratory Effort / Characteristics Non-Labored Spontaneous Respiratory Depth Normal Respiratory Pattern Regular Blood Pressure 95/49 L Blood Pressure [Right Arm] 77/37 L Blood Pressure Mean 64 Blood Pressure Mean [Right Arm] 50 Blood Pressure Position Blood Pressure Position [Right Arm] Lying Pulse Oximetry 100 99 100 Oxygen Delivery Method BiPAP BiPAP BiPAP Oxygen Flow Rate Fraction of Inspired Oxygen 40 40 SaO2/FiO2 Ratio 250 Sepsis Recent Fever Within 48 Hours Sepsis New/Unexplained Change in Mental Status Sepsis Action Taken by Nursing 01/12/24 23:15 01/12/24 23:15 01/12/24 23:30 Temperature Temperature Source Pulse Rate 78 82 84 Pulse Rate [Apical] Pulse Rate from SpO2 Sensor 82 78 Pulse Rhythm Respiratory Rate 17 16 17 Respiratory Effort / Characteristics Spontaneous Respiratory Depth Respiratory Pattern Blood Pressure Blood Pressure [Right Arm] Blood Pressure Mean Blood Pressure Mean [Right Arm] Blood Pressure Position Blood Pressure Position [Right Arm] Pulse Oximetry 96 97 97 Oxygen Delivery Method BiPAP BiPAP Oxygen Flow Rate 1 Fraction of Inspired Oxygen 40 40 40 SaO2/FiO2 Ratio Sepsis Recent Fever Within 48 Hours Sepsis New/Unexplained Change in Mental Status Sepsis Action Taken by Nursing 01/12/24 23:45 01/12/24 23:47 01/12/24 23:48 Temperature Temperature Source Pulse Rate 77 75 Pulse Rate [Apical] Pulse Rate from SpO2 Sensor 75 75 Pulse Rhythm Respiratory Rate 22 17 Respiratory Effort / Characteristics Respiratory Depth Respiratory Pattern Blood Pressure 73/50 L 57/41 L 77/37 L Blood Pressure [Right Arm] Blood Pressure Mean 60 46 50 Blood Pressure Mean [Right Arm] Blood Pressure Position Blood Pressure Position [Right Arm] Pulse Oximetry 100 99 Oxygen Delivery Method BiPAP BiPAP Oxygen Flow Rate Fraction of Inspired Oxygen 40 40 SaO2/FiO2 Ratio Sepsis Recent Fever Within 48 Hours Sepsis New/Unexplained Change in Mental Status Sepsis Action Taken by Nursing 01/13/24 00:03 01/13/24 00:07 Temperature Temperature Source Pulse Rate 75 78 Pulse Rate [Apical] Pulse Rate from SpO2 Sensor 75 79 Pulse Rhythm Respiratory Rate 13 24 Respiratory Effort / Characteristics Respiratory Depth Respiratory Pattern Blood Pressure 76/43 L 71/37 L Blood Pressure [Right Arm] Blood Pressure Mean 54 48 Blood Pressure Mean [Right Arm] Blood Pressure Position Blood Pressure Position [Right Arm] Pulse Oximetry 94 94 Oxygen Delivery Method BiPAP BiPAP Oxygen Flow Rate Fraction of Inspired Oxygen 40 40 SaO2/FiO2 Ratio Sepsis Recent Fever Within 48 Hours Sepsis New/Unexplained Change in Mental Status Sepsis Action Taken by Nursing Laboratory Data 01/12/24 22:05 01/12/24 22:55 Lab Results 01/12/24 01/12/24 01/12/24 Range/Units 20:05 22:05 22:30 WBC 6.42 (4.8-10.8) K/ul RBC 4.32 L (4.70-6.10) M/uL Hgb 14.0 (14.0-18.0) g/dl Hct 44.9 (42.0-52.0) % MCV 103.9 H (80.0-100.0) fL MCH 32.4 (25.0-34.0) pg MCHC 31.2 L (32.0-36.0) g/dL RDW Std Deviation 53.4 H (36.4-46.3) fL RDW Coeff of Jessica 13.8 (11.5-14.5) % Plt Count 134 (130-400) K/uL MPV 11.9 (9.4-12.4) fL Immature Gran % (Auto) 0.2 % Neut % (Auto) 65.6 % Lymph % (Auto) 22.0 % [place] % (Auto) 9.2 % Eos % (Auto) 2.5 % Baso % (Auto) 0.5 % Neut # (Auto) 4.22 (1.40-6.50) K/uL Lymph # (Auto) 1.41 (1.20-3.40) K/uL [place] # (Auto) 0.59 (0.11-0.59) K/uL Eos # (Auto) 0.16 (0.00-0.50) K/uL Baso # (Auto) 0.03 (0.00-0.20) K/uL Immature Gran # (Auto) 0.01 (0.01-0.20) K/uL VBG pH (7.36-7.41) VBG pCO2 (38-50) mmHg VBG pO2 mmHg VBG HCO3 mmol/L VBG O2 Saturation % VBG Base Excess mEq/L Sodium Cancelled Potassium Cancelled Chloride Cancelled Carbon Dioxide Cancelled Anion Gap Cancelled BUN Cancelled Creatinine Cancelled Est Cr Clr Drug Dosing Cancelled Est GFR ( Amer) Cancelled Est GFR (Non-Af Amer) Cancelled BUN/Creatinine Ratio Cancelled Glucose Cancelled Lactate 1.6 (0.4-2.0) mmol/L Calcium Cancelled Magnesium Cancelled Total Bilirubin Cancelled Direct Bilirubin Cancelled AST Cancelled ALT Cancelled Alkaline Phosphatase Cancelled Troponin I High Sens 383.9 H* (0-20) pg/ml B-Natriuretic Peptide 368 H (0-100) pg/ml Total Protein Cancelled Albumin Cancelled Procalcitonin Cancelled Urine Color Brown Urine Appearance Turbid A (Clear) Urine pH 6.0 (4.5-7.5) Ur Specific [place] >= 1.030 (1.000-1.030) Urine Protein 3+ H (Negative) Urine Glucose (UA) Negative (Negative) Urine Ketones Trace H (Negative) Urine Blood 3+ H (Negative) Urine Nitrite Negative (Negative) Urine Bilirubin 2+ H (Negative) Urine Urobilinogen Negative (Negative) Ur Leukocyte Esterase 3+ H (Negative) Urine RBC >30 H (0-4) /hpf Urine WBC >30 H (0-5) /hpf Ur Epithelial Cells 0-5 (0-5) /lpf Ur Renal Epithelial Cell 5-10 H (0-5) /lpf Amorphous Sediment Present A (None Prsent) Urine Bacteria 3+ H (Negative) 01/12/24 01/12/24 01/13/24 Range/Units 22:32 22:55 00:30 WBC (4.8-10.8) K/ul RBC (4.70-6.10) M/uL Hgb (14.0-18.0) g/dl Hct (42.0-52.0) % MCV (80.0-100.0) fL MCH (25.0-34.0) pg MCHC (32.0-36.0) g/dL RDW Std Deviation (36.4-46.3) fL RDW Coeff of Jessica (11.5-14.5) % Plt Count (130-400) K/uL MPV (9.4-12.4) fL Immature Gran % (Auto) % Neut % (Auto) % Lymph % (Auto) % [place] % (Auto) % Eos % (Auto) % Baso % (Auto) % Neut # (Auto) (1.40-6.50) K/uL Lymph # (Auto) (1.20-3.40) K/uL [place] # (Auto) (0.11-0.59) K/uL Eos # (Auto) (0.00-0.50) K/uL Baso # (Auto) (0.00-0.20) K/uL Immature Gran # (Auto) (0.01-0.20) K/uL VBG pH 7.20 L 7.18 L (7.36-7.41) VBG pCO2 77 H 79 H (38-50) mmHg VBG pO2 52 40 mmHg VBG HCO3 30 30 mmol/L VBG O2 Saturation 82.7 68.5 % VBG Base Excess -0.4 -1.0 mEq/L Sodium 139 Potassium 4.7 Chloride 106 Carbon Dioxide 30 Anion Gap 3 BUN 26 H Creatinine 1.12 Est Cr Clr Drug Dosing 75.6 Est GFR ( Amer) 69.5 Est GFR (Non-Af Amer) 60.0 BUN/Creatinine Ratio 23.2 H Glucose 119 H Lactate (0.4-2.0) mmol/L Calcium 8.8 Magnesium 1.8 Total Bilirubin 0.6 Direct Bilirubin 0.2 AST 30 ALT 22 Alkaline Phosphatase 124 H Troponin I High Sens (0-20) pg/ml B-Natriuretic Peptide (0-100) pg/ml Total Protein 6.1 Albumin 2.9 L Procalcitonin 0.13 Urine Color Urine Appearance (Clear) Urine pH (4.5-7.5) Ur Specific [place] (1.000-1.030) Urine Protein (Negative) Urine Glucose (UA) (Negative) Urine Ketones (Negative) Urine Blood (Negative) Urine Nitrite (Negative) Urine Bilirubin (Negative) Urine Urobilinogen (Negative) Ur Leukocyte Esterase (Negative) Urine RBC (0-4) /hpf Urine WBC (0-5) /hpf Ur Epithelial Cells (0-5) /lpf Ur Renal Epithelial Cell (0-5) /lpf Amorphous Sediment (None Prsent) Urine Bacteria (Negative) Administered Medications Sodium Chloride (Nss) 2,000 mls @ 999 mls/hr IV .Q2H1M ONE Stop: 01/13/24 01:55 Last Infusion: 01/13/24 01:14 Dose: Infused Documented By: Admin: 01/13/24 00:03 Dose: 999 mls/hr Documented By: KIMBERLY Discontinued Medications Ceftriaxone Sodium (Rocephin) 2,000 mg in 50 mls @ 100 mls/hr IV NOW STA Stop: 01/13/24 00:24 Last Infusion: 01/13/24 00:47 Dose: Infused Documented By: Admin: 01/13/24 00:12 Dose: 100 mls/hr Documented By: KIMBERLY Imaging Data Radiologist's Impression: Head CT 01/12/24 21:54 Exam(s): CT HEAD Without Contrast EXAM: CT Head Without Intravenous Contrast CLINICAL HISTORY: Reason for exam: confusion; weakness. TECHNIQUE: Axial computed tomography images of the head/brain without intravenous contrast. CTDI is 57.69 mGy and DLP is 1123.94 mGy-cm. Automated exposure control was utilized for the study. A dose lowering technique was utilized adhering to the principles of ALARA. COMPARISON: No relevant prior studies available. FINDINGS: No acute intracranial hemorrhage. No midline shift or mass effect. The territorial chavez-white matter differentiation is maintained throughout. Age-related cerebral volume loss. Periventricular and subcortical white matter hypoattenuation, consistent with chronic microangiopathy. The visualized orbits appear grossly unremarkable. The calvarium is intact. The visualized paranasal sinuses and mastoid air cells are grossly clear. IMPRESSION: No acute intracranial hemorrhage, midline shift, or mass effect. Electronically signed by: Andrey Tim MD 01/12/24 23:14 PM Discharge Plan Visit Data Chief Complaint: Altered Mental Status Stated Complaint: ALTERED MENTAL STATUS, LOW O2 ED Provider: Lyndsey Lira Discharge Problem: AMS (altered mental status), Acute UTI (urinary tract infection), Acute hypotension, Severe sepsis, Acute hypoxemic respiratory failure, Acidosis, Acute exacerbation of CHF (congestive heart failure), Non-ST elevation OR (NSTEMI) Forms Stand Alone Forms: My [facility] Prescriptions Prescriptions: No Action hydrochlorothiazide 25 mg tablet 25 mg PO DAILY Qty: 90 1RF atorvastatin 40 mg tablet 20 mg PO HS Rx Instructions: 40 mg PO TAKE ONE-HALF TABLET HS; tamsulosin 0.4 mg capsule 0.4 mg PO DAILY aspirin 81 mg tablet,delayed release (DR/EC) 81 mg PO DAILY Hold Instructions: hold unless otherwise instructed to resume by your outpatient doctors multivitamin tablet 1 tab PO DAILY metformin 500 mg Tablet 500 mg PO BID venlafaxine 150 mg Capsule,Extended Release 24hr 150 mg PO DAILY hydroxyzine HCl 10 mg Tablet 10 mg PO QID PRN (Reason: Anxiety) Rx Instructions: Usually takes at bedtime pregabalin 75 mg Capsule 75 mg PO BID omega [id number]-fish oil [Fish Oil] 1,000 mg (120 mg-180 mg) Capsule 1 cap PO DAILY ciprofloxacin HCl 500 mg Tablet 500 mg PO BID Qty: 9 0RF Referrals Referrals: Fortino Bravo CRNP [Primary Care Provider] -
[2024-01-12 22:33] LABS: Basophils # (auto) 0.03 K/uL (0.00-0.20); Basophils % (auto) 0.5 %; Eosinophils # (auto) 0.16 K/uL (0.00-0.50); Eosinophils % (auto) 2.5 %; Hematocrit (blood only) 44.9 % (42.0-52.0); Immature Granulocytes # (auto) 0.01 K/uL (0.01-0.20); Immature Granulocytes % (auto) 0.2 %; Lymphocytes # (auto) 1.41 K/uL (1.20-3.40); Mean Corpuscular Hemoglobin 32.4 pg (25.0-34.0); Mean Corpuscular Hgb Conc 31.2 g/dL (32.0-36.0); Mean Corpuscular Volume 103.9 fL (80.0-100.0); Mean Platelet Volume 11.9 fL (9.4-12.4); Monocytes # (auto) 0.59 K/uL (0.11-0.59); Monocytes % (auto) 9.2 %; Neutrophils # (auto) 4.22 K/uL (1.40-6.50); Neutrophils % (auto) 65.6 %; Platelet Count 134 K/uL (130-400); RDW Coefficient of Variation 13.8 % (11.5-14.5); RDW Standard Deviation 53.4 fL (36.4-46.3); Red Blood Count 4.32 M/uL (4.70-6.10); White Blood Count 6.42 K/ul (4.8-10.8)
[2024-01-12 22:47] LABS: Base Excess VBG -0.4 mEq/L; HCO3 VBG 30 mmol/L; Oxygen Saturation VBG 82.7 %; PCO2 VBG 77 mmHg (38-50); PO2 VBG 52 mmHg
[2024-01-12 22:49] LABS: Appearance Urine Turbid (Clear); Bilirubin Urine 2+ (Negative); Blood Urine 3+ (Negative); Color Urine Brown; Glucose Urine UA Negative (Negative); Ketones Urine Trace (Negative); Leukocyte Esterase Urine 3+ (Negative); Nitrite Urine Negative (Negative); Protein Urine 3+ (Negative); Specific Gravity Urine >= 1.030 (1.000-1.030); Urobilinogen Urine Negative (Negative)
--- NOTE | 2024-01-12 23:15 | CT Scan Report ---
Exam(s): CT HEAD Without Contrast EXAM: CT Head Without Intravenous Contrast CLINICAL HISTORY: Reason for exam: confusion; weakness. TECHNIQUE: Axial computed tomography images of the head/brain without intravenous contrast. CTDI is 57.69 mGy and DLP is 1123.94 mGy-cm. Automated exposure control was utilized for the study. A dose lowering technique was utilized adhering to the principles of ALARA. COMPARISON: No relevant prior studies available. FINDINGS: No acute intracranial hemorrhage. No midline shift or mass effect. The territorial chavez-white matter differentiation is maintained throughout. Age-related cerebral volume loss. Periventricular and subcortical white matter hypoattenuation, consistent with chronic microangiopathy. The visualized orbits appear grossly unremarkable. The calvarium is intact. The visualized paranasal sinuses and mastoid air cells are grossly clear. IMPRESSION: No acute intracranial hemorrhage, midline shift, or mass effect. Electronically signed by: Andrey Tim MD 01/12/24 23:14 PM
[2024-01-12 23:27] LABS: Epithelial Cell Urine 0-5 /lpf (0-5); RBC Urine >30 /hpf (0-4); WBC Urine >30 /hpf (0-5)
[2024-01-12 23:28] LABS: Amorphous Sediment Urine Present (None Prsent); Bacteria Urine 3+ (Negative)
[2024-01-12 23:39] LABS: Albumin Level 2.9 gm/dl (3.4-5.0); BUN Creatinine Ratio 23.2 (10-20); Bilirubin Direct 0.2 mg/dl (0-0.2); Bilirubin,Total 0.6 mg/dl (0.2-1.0); Calcium 8.8 mg/dl (8.6-10.3); Creatinine Clr Calc Pharmacy 75.6 ml/min; Est GFR (African American) 69.5 ml/min; Magnesium 1.8 mg/dl (1.7-2.4); Potassium 4.7 mmol/L (3.5-5.1); Total Protein 6.1 gm/dl (6.0-8.3)
[2024-01-13] MEDS: SODIUM CHLORIDE 0.9% 2,000 ML IV ONE (00:03)
[2024-01-13] MEDS: cefTRIAXone SODIUM 2,000 MG/50 ML BAG IV STA (00:12)
[2024-01-13 00:39] LABS: HCO3 VBG 30 mmol/L; Oxygen Saturation VBG 68.5 %; PCO2 VBG 79 mmHg (38-50); PO2 VBG 40 mmHg; pH VBG 7.18 (7.36-7.41)
[2024-01-13] MEDS ORDERED: STAT IV Infusion **Titration per Protocol STA (01:06)
[2024-01-13] MEDS: SODIUM BICARB 8.4% INJ 50 MEQ/50 ML SYR IV STA ×2 (01:15→02:28)
[2024-01-13] MEDS: ALBUMIN 25% 25 GM/100 ML VIAL IV SCH (01:29)
--- NOTE | 2024-01-13 01:29 | History & Physical Report ---
Date of Service January 13, 2024 Assessment & Plan (1) Acute hypotension: (2) Severe sepsis: (3) Acute hypoxemic respiratory failure: (4) Non-ST elevation [place] (NSTEMI): (5) Acute UTI (urinary tract infection): (6) Sepsis due to Proteus species: (7) Acute metabolic encephalopathy: (8) Elevated troponin: Plan Severe hypotension/severe sepsis due to UTI/history of Proteus UTI/acute metabolic encephalopathy- Admit to monitored bed Symptoms improved significantly after 2 L fluid bolus of normal saline in ED Also given albumin 50 g IV Continue NSS at 100 mL/h History of pansensitive Proteus urinary tract infection during admission from 12/21-12/31/2023 Ceftriaxone 2 g IV every 24 hours Follow urine culture and sensitivity Diabetes mellitus- Hold metformin Placed on Accu-Cheks with NovoLog SSI For now will be n.p.o. Elevated troponin/hypertension- While n.p.o., hold aspirin, atorvastatin, hydrochlorothiazide Initial troponin 383.9 with serial troponins following Likely type II supply/demand mismatch Depression with anxiety- Hold hydroxyzine, pregabalin and venlafaxine while n.p.o. History of Present Illness Chief Complaint: The patient presented to the emergency department after becoming very confused at rehab, who then called the patient's son, who asked that the patient be brought to the emergency department for assessment Primary Care Provider: HERBERTH Cowart The patient is an 83-year-old male with a past medical history including CHF, urine tract infection, history of sepsis due to Proteus species during admission from 12/21-12/31/2023, pneumonia, history of DVT, diabetes mellitus type 2, subdural hematoma, BPH, depression with anxiety, dyslipidemia and hypertension. When the patient arrived to the emergency department, he was very confused and unable to spot emergency department staff. He was also placed on oxime mask due to mild hypoxia. Upon my assessment, the patient did receive 2 L normal saline, and the patient was able to answer questions, and be conversant, which was significantly improved from his original presentation. Urinalysis was suggestive of recurrent UTI. Patient was somewhat hypotensive prior to receiving fluid resuscitation, with blood pressure at its lowest being 57/41, and did improve significantly as noted after 2 L of fluid to 98/54. Plans are to admit the patient to PCU overflow in the ICU, in the event that he becomes hypotensive again. Allergies Allergy/AdvReac Type Severity Reaction Status Date / Time No Known Allergies Allergy Unverified 03/26/23 10:15 Home Medications Medication Instructions Recorded Confirmed Type aspirin 81 mg tablet,delayed 81 mg PO DAILY 10/27/19 12/21/23 History release atorvastatin 40 mg tablet 20 mg PO HS 10/27/19 12/21/23 History multivitamin 1 tab PO DAILY 10/27/19 12/21/23 History tamsulosin 0.4 mg capsule 0.4 mg PO DAILY 10/27/19 12/21/23 History hydroxyzine HCl 10 mg tablet 10 mg PO QID PRN Anxiety 03/26/23 12/21/23 History metformin 500 mg tablet 500 mg PO BID 03/26/23 12/21/23 History omega 2-usj-tbi-fish oil 1,000 mg 1 cap PO DAILY 03/26/23 12/21/23 History (120 mg-180 mg) capsule (Fish Oil) pregabalin 75 mg capsule 75 mg PO BID 03/26/23 12/21/23 History venlafaxine 150 mg 150 mg PO DAILY 03/26/23 12/21/23 History capsule,extended release 24 hr hydrochlorothiazide 25 mg tablet 25 mg PO DAILY #90 tabs 04/09/23 12/21/23 Rx ciprofloxacin HCl 500 mg tablet 500 mg PO BID #9 tabs 12/30/23 Rx Past Med/Surg History Medical History History of DVT (deep vein thrombosis) Acquired lymphedema Encounter for pre-operative examination Thrombocytopenia Subdural hematoma Morbid obesity with BMI of 45.0-49.9, adult Lumbago with sciatica, right side Neuropathy Olecranon bursitis of left elbow BPH (benign prostatic hyperplasia) Hemochromatosis Depression with anxiety Arthritis Anxiety DVT (deep venous thrombosis) Chronic respiratory failure with hypoxia, on home oxygen therapy Obesity hypoventilation syndrome Paralysis of diaphragm nerve Osteoarthritis Hypertension Dyslipidemia Gout Surgical History Hx of knee surgery H/O umbilical hernia repair Hx of cholecystectomy Right wrist fracture Fracture of right hip Family History Mother Lung cancer Lung disease Brother Lung cancer Lung disease Denies family history of Ovarian cancer Prostate cancer Myocardial infarction Breast cancer Colorectal cancer Social History Smoking Status: Never smoker Second Hand Exposure: No; Do You Dip or Chew Tobacco: No; Tobacco Cessation Education Requested by Patient: No Hx Alcohol Use: No Hx Substance Use: No Preferred Language: Tajik Communication Ability: Effective Visual Impairment: No Limitations Hearing Ability: Normal Nozzle Tender Required: No Beliefs That Will Affect Care: None marital status: / Current Living Situation: Family Current Living Situation Comment: Live with son current occupational status: retired 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 How many Children do You have: 2 Other Information That Helps Us Care for You: No Feels Safe at Home: Yes Safety Concerns: Feels Safe At This Time Childhood Exposure to Second-Hand Smoke: No Diet: regular caffeine: Yes during the past year weight has: remained stable Dental Care, Regularly: No Physical Activity Frequency: Daily Seatbelt Use: always Sunscreen Use: No Assistive Devices: CPAP, Denture - Upper, Denture - Lower, Glasses and Walker Review of Systems Review of Systems: Difficult to obtain due to altered mental status Physical Exam 2 Physical Exam: The patient is awake, improving mentation, well developed and well nourished, normocephalic and atraumatic, lying in bed and in no acute distress. HEENT--PERRL, EOMI, mucous membranes and oropharynx dry. Neck--supple. No JVD. No bruits. Thyroid normal, trachea midline, no adenopathy. Heart--normal S1 and S2. No murmurs, rubs or gallops. Lungs--clear bilaterally, no respiratory distress, no accessory muscle use. Abdomen--normal bowel sounds and soft. Nontender. Nondistended, no hernias or masses, no organomegaly. Extremities--No edema Dermatologic--normal skin turgor, normal color, no abnormal lymph nodes, no rash. Neurologic--cranial nerves II through XII grossly intact. Rheumatologic--normal range of motion. Psychiatric--improving mentation, still mildly confused Results & Data Results & Data Vital Signs (Past 12 Hours) Vital Signs Temp Pulse Pulse Resp BP BP Pulse Ox 01/13/24 01:15 77 19 121/67 94 01/13/24 01:00 77 19 98/54 L 97 01/13/24 00:45 76 21 83/47 L 98 01/13/24 00:30 72 26 H 83/47 L 96 01/13/24 00:15 73 18 77/39 L 96 01/13/24 00:07 78 24 71/37 L 94 01/13/24 00:03 75 13 76/43 L 94 01/12/24 23:48 75 17 77/37 L 99 01/12/24 23:47 77 22 57/41 L 100 01/12/24 23:45 73/50 L 01/12/24 23:30 84 17 97 01/12/24 23:15 82 16 97 01/12/24 23:15 78 17 96 01/12/24 23:00 87 16 95/49 L 100 01/12/24 23:00 75 17 77/37 L 99 01/12/24 23:00 75 17 100 01/12/24 22:56 91 H 17 103/49 L 100 01/12/24 22:37 37.2 C 01/12/24 21:54 15 99 01/12/24 21:54 01/12/24 21:54 25 H 101/62 96 01/12/24 21:53 86 O2 Del Method O2 Flow Rate FiO2 01/13/24 01:15 BiPAP 40 01/13/24 01:00 BiPAP 40 01/13/24 00:45 BiPAP 40 01/13/24 00:30 BiPAP 40 01/13/24 00:15 BiPAP 40 01/13/24 00:07 BiPAP 40 01/13/24 00:03 BiPAP 40 01/12/24 23:48 BiPAP 40 01/12/24 23:47 BiPAP 40 01/12/24 23:45 01/12/24 23:30 BiPAP 40 01/12/24 23:15 BiPAP 40 01/12/24 23:15 1 40 01/12/24 23:00 BiPAP 40 01/12/24 23:00 BiPAP 01/12/24 23:00 BiPAP 40 01/12/24 22:56 Non-rebreather 15 01/12/24 22:37 01/12/24 21:54 Non-rebreather 01/12/24 21:54 Non-rebreather 15 01/12/24 21:54 Non-rebreather 15 01/12/24 21:53 Laboratory Results Laboratory Results WBC 4.89 K/ul (4.8-10.8) 01/13/24 04:45 RBC 3.81 M/uL (4.70-6.10) L 01/13/24 04:45 Hgb 12.4 g/dl (14.0-18.0) L 01/13/24 04:45 Hct 40.1 % (42.0-52.0) L 01/13/24 04:45 MCV 105.2 fL (80.0-100.0) H 01/13/24 04:45 MCH 32.5 pg (25.0-34.0) 01/13/24 04:45 MCHC 30.9 g/dL (32.0-36.0) L 01/13/24 04:45 RDW Std Deviation 54.0 fL (36.4-46.3) H 01/13/24 04:45 RDW Coeff of Jessica 13.7 % (11.5-14.5) 01/13/24 04:45 Plt Count 106 K/uL (130-400) L 01/13/24 04:45 MPV 11.9 fL (9.4-12.4) 01/13/24 04:45 Immature Gran % (Auto) 0.4 % 01/13/24 04:45 Neut % (Auto) 65.9 % 01/13/24 04:45 Lymph % (Auto) 19.6 % 01/13/24 04:45 [place] % (Auto) 10.2 % 01/13/24 04:45 Eos % (Auto) 3.3 % 01/13/24 04:45 Baso % (Auto) 0.6 % 01/13/24 04:45 Neut # (Auto) 3.22 K/uL (1.40-6.50) 01/13/24 04:45 Lymph # (Auto) 0.96 K/uL (1.20-3.40) L 01/13/24 04:45 [place] # (Auto) 0.50 K/uL (0.11-0.59) 01/13/24 04:45 Eos # (Auto) 0.16 K/uL (0.00-0.50) 01/13/24 04:45 Baso # (Auto) 0.03 K/uL (0.00-0.20) 01/13/24 04:45 Immature Gran # (Auto) 0.02 K/uL (0.01-0.20) 01/13/24 04:45 VBG pH 7.18 (7.36-7.41) L 01/13/24 00:30 VBG pCO2 79 mmHg (38-50) H 01/13/24 00:30 VBG pO2 40 mmHg 01/13/24 00:30 VBG HCO3 30 mmol/L 01/13/24 00:30 VBG O2 Saturation 68.5 % 01/13/24 00:30 VBG Base Excess -1.0 mEq/L 01/13/24 00:30 Sodium 139 mmol/L (136-145) 01/12/24 22:55 Potassium 4.7 mmol/L (3.5-5.1) 01/12/24 22:55 Chloride 106 mmol/L (98-107) 01/12/24 22:55 Carbon Dioxide 30 mmol/L (21-32) 01/12/24 22:55 Anion Gap 3 (3-11) 01/12/24 22:55 BUN 26 mg/dl (6-23) H 01/12/24 22:55 Creatinine 1.12 mg/dl (0.6-1.4) 01/12/24 22:55 Est Cr Clr Drug Dosing 75.6 ml/min 01/12/24 22:55 Est GFR ( Amer) 69.5 ml/min 01/12/24 22:55 Est GFR (Non-Af Amer) 60.0 ml/min 01/12/24 22:55 BUN/Creatinine Ratio 23.2 (10-20) H 01/12/24 22:55 Glucose 119 mg/dl (70-99(Fasting)) H 01/12/24 22:55 Lactate 1.6 mmol/L (0.4-2.0) 01/12/24 20:05 Calcium 8.8 mg/dl (8.6-10.3) 01/12/24 22:55 Magnesium 1.8 mg/dl (1.7-2.4) 01/12/24 22:55 Total Bilirubin 0.6 mg/dl (0.2-1.0) 01/12/24 22:55 Direct Bilirubin 0.2 mg/dl (0-0.2) 01/12/24 22:55 AST 30 U/L (13-39) 01/12/24 22:55 ALT 22 U/L (7-52) 01/12/24 22:55 Alkaline Phosphatase 124 U/L (34-104) H 01/12/24 22:55 Troponin I High Sens 456.9 pg/ml (0-20) H* 01/13/24 00:30 B-Natriuretic Peptide 368 pg/ml (0-100) H 01/12/24 22:05 Total Protein 6.1 gm/dl (6.0-8.3) 01/12/24 22:55 Albumin 2.9 gm/dl (3.4-5.0) L 01/12/24 22:55 Procalcitonin 0.13 ng/ml (0-0.5) 01/12/24 22:55 Urine Color Brown 01/12/24 22:30 Urine Appearance Turbid (Clear) A 01/12/24 22:30 Urine pH 6.0 (4.5-7.5) 01/12/24 22:30 Ur Specific [place] >= 1.030 (1.000-1.030) 01/12/24 22:30 Urine Protein 3+ (Negative) H 01/12/24 22:30 Urine Glucose (UA) Negative (Negative) 01/12/24 22:30 Urine Ketones Trace (Negative) H 01/12/24 22:30 Urine Blood 3+ (Negative) H 01/12/24 22:30 Urine Nitrite Negative (Negative) 01/12/24 22:30 Urine Bilirubin 2+ (Negative) H 01/12/24 22:30 Urine Urobilinogen Negative (Negative) 01/12/24 22:30 Ur Leukocyte Esterase 3+ (Negative) H 01/12/24 22:30 Urine RBC >30 /hpf (0-4) H 01/12/24 22:30 Urine WBC >30 /hpf (0-5) H 01/12/24 22:30 Ur Epithelial Cells 0-5 /lpf (0-5) 01/12/24 22:30 Ur Renal Epithelial Cell 5-10 /lpf (0-5) H 01/12/24 22:30 Amorphous Sediment Present (None Prsent) A 01/12/24 22:30 Urine Bacteria 3+ (Negative) H 01/12/24 22:[address] 01/12/24 21:54 Exam(s): CT HEAD Without Contrast EXAM: CT Head Without Intravenous Contrast CLINICAL HISTORY: Reason for exam: confusion; weakness. TECHNIQUE: Axial computed tomography images of the head/brain without intravenous contrast. CTDI is 57.69 mGy and DLP is 1123.94 mGy-cm. Automated exposure control was utilized for the study. A dose lowering technique was utilized adhering to the principles of ALARA. COMPARISON: No relevant prior studies available. FINDINGS: No acute intracranial hemorrhage. No midline shift or mass effect. The territorial chavez-white matter differentiation is maintained throughout. Age-related cerebral volume loss. Periventricular and subcortical white matter hypoattenuation, consistent with chronic microangiopathy. The visualized orbits appear grossly unremarkable. The calvarium is intact. The visualized paranasal sinuses and mastoid air cells are grossly clear. IMPRESSION: No acute intracranial hemorrhage, midline shift, or mass effect. Electronically signed by: Andrey Tim MD 01/12/24 23:14 PM Code Status & VTE Plan Code Status Conditional code: DNR/DNI, will except pressors to improve blood pressure while receiving other treatments VTE Prophylaxis Plan VTE Prophylaxis will be ordered: Yes PG Care Time/CCT Total # of Minutes Spent Total Time Spent with Patient: Total time spent is greater than 50% in coordination of care (as documented) at patient's floor/unit and/or counseling patient: Coding Level of Care Code 11876 INT INP/OBS CARE 3/75MIN Diagnoses Acute hypotension I95.9 Severe sepsis A41.9; R65.20 Acute hypoxemic respiratory failure J96.01 Non-ST elevation VT (NSTEMI) I21.4 Acute UTI (urinary tract infection) N39.0 Sepsis due to Proteus species A41.59 Acute metabolic encephalopathy G93.41 Elevated troponin R79.89
[2024-01-13] MEDS: NOREPINEPHRINE/D5W 4 MG/250 ML PLCT IV SCH (02:28)
[2024-01-13] MEDS ORDERED: DEXTROSE 50% 50 ML SYRINGE IV PRN (04:13)
[2024-01-13] MEDS ORDERED: CARBOHYDRATES FOR HYPOGLYCEMIA PO PRN (04:13)
[2024-01-13] MEDS ORDERED: GLUCOSE 40% GEL 15 GM TUBE PO PRN (04:13)
[2024-01-13] MEDS ORDERED: GLUCOSE 10 TAB/TUBE PO PRN (04:13)
[2024-01-13] MEDS ORDERED: ONDANSETRON INJ 2 MG/ML 2 ML VIAL IV PRN (04:13)
[2024-01-13] MEDS ORDERED: GLUCAGON FOR INJ 1 MG VIAL SQ PRN (04:13)
[2024-01-13] MEDS: SODIUM CHLORIDE 0.9% 1,000 ML IV SCH (04:27)
[2024-01-13 05:16] LABS: Basophils # (auto) 0.03 K/uL (0.00-0.20); Basophils % (auto) 0.6 %; Eosinophils # (auto) 0.16 K/uL (0.00-0.50); Eosinophils % (auto) 3.3 %; Hematocrit (blood only) 40.1 % (42.0-52.0); Hemoglobin 12.4 g/dl (14.0-18.0); Immature Granulocytes # (auto) 0.02 K/uL (0.01-0.20); Immature Granulocytes % (auto) 0.4 %; Lymphocytes # (auto) 0.96 K/uL (1.20-3.40); Lymphocytes % (auto) 19.6 %; Mean Corpuscular Hemoglobin 32.5 pg (25.0-34.0); Mean Corpuscular Hgb Conc 30.9 g/dL (32.0-36.0); Mean Corpuscular Volume 105.2 fL (80.0-100.0); Mean Platelet Volume 11.9 fL (9.4-12.4); Monocytes % (auto) 10.2 %; Neutrophils # (auto) 3.22 K/uL (1.40-6.50); Neutrophils % (auto) 65.9 %; Platelet Count 106 K/uL (130-400); RDW Coefficient of Variation 13.7 % (11.5-14.5); Red Blood Count 3.81 M/uL (4.70-6.10); White Blood Count 4.89 K/ul (4.8-10.8)
[2024-01-13 05:28] LABS: Albumin Globulin Ratio 1.1 (0.9-2); BUN Creatinine Ratio 24.5 (10-20); Bilirubin,Total 0.6 mg/dl (0.2-1.0); Calcium 8.2 mg/dl (8.6-10.3); Creatinine Clr Calc Pharmacy 83.1 ml/min; Est GFR (African American) 77.9 ml/min; Est GFR (Non-African American) 67.2 ml/min; Globulin 2.7 gm/dl (2.5-4.0); Potassium 4.4 mmol/L (3.5-5.1); Total Protein 5.7 gm/dl (6.0-8.3)
[2024-01-13 05:41] LABS: Troponin I High Sensitivity 440.6 pg/ml (0-20)
[2024-01-13] MEDS: INSULIN ASPART PER UNIT CHARGE SC SCH (05:54)
[2024-01-13] MEDS: HEPARIN SOD 5,000 UNIT/0.5 ML VIAL SQ SCH (05:54)
--- NOTE | 2024-01-13 07:25 | Communication Note ---
Date of Service: January 13, 2024 83 y/o with chronic respiratory failure discharged 12/31/23 with proteus UTI and nephrolithiasis treated with ureteral stent treated with 14d antibiotics Presented with acute encephalopathy, acute on chronic hypercarbic respiratory failure and sepsis, admitted to ICU (1) Acute hypotension: (2) Severe sepsis: (3) Acute hypoxemic respiratory failure: (4) Non-ST elevation [place] (NSTEMI): (5) Acute UTI (urinary tract infection): (6) Sepsis due to Proteus species: (7) Acute metabolic encephalopathy: (8) Elevated troponin: Plan Severe hypotension/severe sepsis due to UTI/history of Proteus UTI/acute metabolic encephalopathy- Admit to monitored bed Symptoms improved significantly after 2 L fluid bolus of normal saline in ED, albumin 50 g IV, no longer on norepi this AM and hypotension resolved History of pansensitive Proteus urinary tract infection during admission from 12/21-12/31/2023 GPC in chains in one blood culture, strep by molecular Ceftriaxone 2 g IV every 24 hours - continue Follow urine culture and sensitivity Diabetes mellitus- Hold metformin Placed on Accu-Cheks with NovoLog SSI For now will be n.p.o. Acute on chronic hypercarbic respiratory failure, underlying ABDULLAHI/OHS on home bipap -abg did not improve overnight but alertness improved -continue Bipap Acute metabolic encephalopathy - seems improved, awake and talking today Elevated troponin/hypertension- Troponin peaked in 400s now downtrending, no evidence of ACS, consistent with demand ischemia similar to last admission While n.p.o., hold aspirin, atorvastatin, hydrochlorothiazide Obstructing left ureteral stone with stent -was planned for urology follow up 01/10-01/11 but became ill and was admitted Depression with anxiety- Hold hydroxyzine, pregabalin and venlafaxine while n.p.o. DNR/DNI as per previously stated wishes and confirmed with his son Bassam on admission. Would want to have antibiotics, pressors and noninvasive ventil ation.
[2024-01-13 07:57] LABS: Estimated Average Glucose 146 mg/dl; Hemoglobin A1C 6.7 % (4.5-5.6)
--- NOTE | 2024-01-13 08:01 | XRay Report ---
XR chest 1V portable HISTORY: Sepsis COMPARISON: Chest 12/21/2023. FINDINGS: There are low lung volumes. The heart remains enlarged. Mild interstitial pulmonary edema h as improved. Persistent elevation of the left hemidiaphragm. There is a small left pleural effusion. Patchy bibasilar densities persist. No pneumothorax. IMPRESSION: 1. Cardiomegaly and mild interstitial pulmonary edema. This has slightly improved. 2. There is a small left pleural effusion and patchy bibasilar densities. This is similar to the prio r study. ACT 112: Negative or not required by law. Electronically signed by: Daniel Valdez M.D. 01/13/2024 7:58 AM
[2024-01-13 08:54] LABS: iSTAT Allen Test Pass; iSTAT Art Bld Gas pCO2 Correct 71 mmHg (35-46); iSTAT Art Bld Gas pH Corrected 7.247 (7.35-7.45); iSTAT Arterial Blood Gas HCO3 31 meg/L (19-24); iSTAT Arterial Blood Gas pCO2 73 mmHg (35-46); iSTAT Arterial Blood Gas pH 7.24 (7.35-7.45); iSTAT Arterial Blood Gas pO2 113 mmHg (80-95); iSTAT Arterial Blood Gas pO2 C 109; iSTAT Carbon Dioxide 33 mmol/L (24-31); iSTAT Hematocrit 36 % (42-52); iSTAT Hemoglobin 12.2 g/dl (14.0-18.0); iSTAT Potassium 3.9 mmol/L (3.3-5.0); iSTAT Site R Radial; iSTAT Sodium 143 mmol/L (135-144)
[2024-01-13 12:52] LABS: A calco-baum cmplx NotReported Not Detected (NotDetected); Bact fragilis Not Reported Not Detected (NotDetected); Blood Culture Id Panel See PCR Comment (NotDetected); C auris Not Reported Not Detected (NotDetected); Calbicans Not Reported Not Detected (NotDetected); Candida glabrata Not Reported Not Detected (NotDetected); Candida krusei Not Reported Not Detected (NotDetected); Cneoformans/gatti Not Reported Not Detected (NotDetected); Cparapsilosis Not Reported Not Detected (NotDetected); E cloacae compx Not Reported Not Detected (NotDetected); Efaecalis Not Reported Not Detected (NotDetected); Efaecium Not Reported Not Detected (NotDetected); Enterobacterales Not Reported Not Detected (NotDetected); Escherichia coli Not Reported Not Detected (NotDetected); H influenzae Not Reported Not Detected (NotDetected); K aerogenes Not Reported Not Detected (NotDetected); Koxytoca Not Reported Not Detected (NotDetected); Kpneumoniae grp Not Reported Not Detected (NotDetected); Lmonocyt Not Reported Not Detected (NotDetected); N meningitidis Not Reported Not Detected (NotDetected); P aeruginosa Not Reported Not Detected (NotDetected); Proteus spp Not Reported Not Detected (NotDetected); Salmonella spp Not Reported Not Detected (NotDetected); Smarcescens Not Reported Not Detected (NotDetected); Staph lugdunensis Not Reported Not Detected (NotDetected); Staph spp. Not Reported Not Detected (NotDetected); Staphaureus Not Reported Not Detected (NotDetected); Staphepi Not Reported Not Detected (NotDetected); Stenmaltophilia Not Reported Not Detected (NotDetected); Strep agal(GrpB) Not Reported Not Detected (NotDetected); Strep pneum Not Reported Not Detected (NotDetected); Strep pyog (GrpA) Not Reported Not Detected (NotDetected); Strep spp Not Reported DETECTED (NotDetected)
[2024-01-13 13:25] LABS: Streptococcus spp DETECTED (NotDetected)
--- NOTE | 2024-01-13 15:44 | Electrocardiogram Report ---
Test Reason : Blood Pressure : / mmHG Vent. Rate : 084 BPM Atrial Rate : 084 BPM P-R Int : 224 ms QRS Dur : 146 ms QT Int : 414 ms P-R-T Axes : 012 -58 -21 degrees QTc Int : 489 ms Sinus rhythm with 1st degree A-V block Right bundle branch block Left anterior fascicular block Bifascicular block Abnormal ECG When compared with ECG of 21-DEC-2023 18:44, Premature ventricular complexes are no longer Present PA interval has increased Inverted T waves have replaced nonspecific T wave abnormality in Anterior leads Confirmed by Pb Ramires ([id number]) on 01/13/2024 3:44:02 PM Referred By: REFERRED SELF Confirmed By:Tee Ramires
[2024-01-13 19:04] LABS: Base Excess VBG 3.1 mEq/L; HCO3 VBG 32 mmol/L; Oxygen Saturation VBG < 60.0 %; PCO2 VBG 70 mmHg (38-50); PO2 VBG 30 mmHg; pH VBG 7.27 (7.36-7.41)
--- NOTE | 2024-01-13 19:24 | Communication Note ---
Date of Service: January 13, 2024 I updated his son Bassam by phone tonight. Hypotension has resolved but vbg with slight improvement on pH and CO2 after bipap throughout the day
[2024-01-13] MEDS: cefTRIAXone SODIUM 2,000 MG in DEXTROSE 5 % MINI-B 50 ML IV SCH (20:59)
[2024-01-14] MEDS: ACETAMINOPHEN 1,000 MG/100 ML VIAL IV PRN (01:01)
[2024-01-14 04:23] LABS: Base Excess VBG 3.1 mEq/L; HCO3 VBG 30 mmol/L; Oxygen Saturation VBG 88.9 %; PCO2 VBG 56 mmHg (38-50); PO2 VBG 55 mmHg; pH VBG 7.34 (7.36-7.41)
[2024-01-14 04:43] LABS: Basophils # (auto) 0.02 K/uL (0.00-0.20); Basophils % (auto) 0.5 %; Eosinophils # (auto) 0.19 K/uL (0.00-0.50); Eosinophils % (auto) 4.5 %; Hematocrit (blood only) 38.3 % (42.0-52.0); Hemoglobin 12.6 g/dl (14.0-18.0); Immature Granulocytes # (auto) 0.01 K/uL (0.01-0.20); Immature Granulocytes % (auto) 0.2 %; Lymphocytes # (auto) 0.93 K/uL (1.20-3.40); Lymphocytes % (auto) 21.8 %; Mean Corpuscular Hemoglobin 33.2 pg (25.0-34.0); Mean Corpuscular Hgb Conc 32.9 g/dL (32.0-36.0); Mean Corpuscular Volume 100.8 fL (80.0-100.0); Mean Platelet Volume 11.9 fL (9.4-12.4); Monocytes # (auto) 0.41 K/uL (0.11-0.59); Monocytes % (auto) 9.6 %; Neutrophils % (auto) 63.4 %; Platelet Count 92 K/uL (130-400); RDW Coefficient of Variation 13.6 % (11.5-14.5); RDW Standard Deviation 50.7 fL (36.4-46.3); White Blood Count 4.26 K/ul (4.8-10.8)
[2024-01-14 05:26] LABS: Albumin Globulin Ratio 1.2 (0.9-2); BUN Creatinine Ratio 31.1 (10-20); Bilirubin,Total 0.7 mg/dl (0.2-1.0); Calcium 8.3 mg/dl (8.6-10.3); Creatinine Clr Calc Pharmacy 139.4 ml/min; Est GFR (African American) 106.3 ml/min; Est GFR (Non-African American) 91.7 ml/min; Globulin 2.6 gm/dl (2.5-4.0); Magnesium 1.5 mg/dl (1.7-2.4); Potassium 3.7 mmol/L (3.5-5.1); Total Protein 5.6 gm/dl (6.0-8.3); Troponin I High Sensitivity 279.6 pg/ml (0-20)
[2024-01-14] MEDS: MAGNESIUM SULFATE / D5W 1 GM/100 ML BAG IV SCH (07:46)
--- NOTE | 2024-01-14 09:45 | Electrocardiogram Report ---
Test Reason : Blood Pressure : / mmHG Vent. Rate : 071 BPM Atrial Rate : 071 BPM P-R Int : 190 ms QRS Dur : 144 ms QT Int : 422 ms P-R-T Axes : 035 -54 -32 degrees QTc Int : 458 ms Sinus rhythm with Premature atrial complexes Right bundle branch block Left anterior fascicular block Bifascicular block Abnormal ECG Confirmed by Pb Ramires ([id number]) on 01/14/2024 9:45:12 AM Referred By: REFERRED SELF Confirmed By:Tee Ramires
[2024-01-14] MEDS ORDERED: ACETAMINOPHEN 325 MG TAB PO PRN (09:51)
[2024-01-14] MEDS: ASPIRIN 81 MG ECTAB PO SCH (11:24)
[2024-01-14] MEDS: VENLAFAXINE HCL XR 150 MG CAPXR PO SCH (11:24)
[2024-01-14] MEDS: DICLOFENAC SOD 1% GEL 100 GM TUBE EXT SCH (11:25)
[2024-01-14] MEDS ORDERED: Nursing to Pharmacy Communication SCH (12:30)
--- NOTE | 2024-01-14 15:26 | Hospitalist Progress Note ---
Date of Service January 14, 2024 Assessment & Plan (1) Acute and chronic respiratory failure with hypercapnia: Plan: 83 y/o with ABDULLAHI/OHS and paralyzed hemidiaphragm with chronic respiratory failure on nocturnal bipap at home Recently admitted 12/21-12/30 with proteus bacteremia related to left sided obstructing nephrolithiasis, ureteral stent placed, completed 14 course antibiotics with oral cipro on discharge. During that admission he also had acute on chronic hypoxemic and hypercapneic respiratory failure and was treated for acute on chronic diastolic heart failure and pneumonia, hypoxia resolved. Did well at home for a time and was due for his urology appointment for stone procedure 01/10-01/11 but was admitted when found to be confused and somnolent at therapy. Was hypotensive, requiring fluid and albumin boluses and brief pressors at time of admission. Was also hypercarbic with CO2 of 79. acute metabolic encephalopathy related to acute on chronic hypercarbic respiratory failure -improved with continuous bipap - vbg this AM 7.34/56 -continue nocturnal bipap -stop IV fluids and allow diet -O2 sat goal 88-92% (2) Acute hypotension: Plan: Significant hypotension on admission, resolved Suspected severe sepsis on admission, however, remains unclear to me whether infected Proteus UTI and bacteremia last admission completed 14d of ABX Ureteral stent in place -saline lock IV fluids -may eventually require diuresis -continue IV ceftriaxone for now pending cultures - pinpoint on urine. Blood cultures one bottle with a strep that is likely contaminant. vancomycin stopped. (3) Acute hypoxemic respiratory failure: Plan: present on admission and resolved, seems likely related to hypoventilation (4) Non-ST elevation [place] (NSTEMI): Plan: Type 2 nstemi / myocardial strain related to respiratory failure and sepsis Mild troponin elevation now downtrending No chest pain or acute EKG changes, no evidence of ACS -Echo 12/24/23 with normal EF 55-60%, mild conc LVH, no rwma's, technically limited study - will not repeat right now unless worsening/symptomatic -continue ASA, atorvastatin (5) Acute UTI (urinary tract infection): Plan: possible UTI - see above urine cx pinpoint Underwent cystoscopy with deployment of L ureteral stent by Dr Willett for left-sided mid-ureteral stone 12/22 -was planned for stone procedure and stent exchange this week -discuss with urology when more stable BPH - continue tamsulosin (6) Acute metabolic encephalopathy: Plan: see above resolving (7) Morbid obesity with BMI of 45.0-49.9, adult: Plan: and ABDULLAHI/OHS with respiratory failure Plan Diabetes mellitus- Hold metformin Resume diabetic diet -premeal short acting insulin History of hypertension Chronic diastolic heart failure -weight is up since last discharge 148-->156.9 kg. likely to need eventual diuresis Bilateral LE lymphedema -uses compression machine at home Depression with anxiety- Hold hydroxyzine, pregabalin until more alert cont venlafaxine replacing hypomagnesemia 01/13 IV -AM BMP, mag DVT ppx - Hx DVT in 2018. SQ heparin q8h Dispo - lives at home with son, JEFF, uses walker, has multiple lift chairs. Has refused rehab in past but family stongly wishes him to accept rehab this time Updated evan Banegas by phone 01/12, plans visit today Admission and Anticipated Discharge Date Admission Date: January 13, 2024 Subjective more alert this morning knows he's in the hospital, denies dyspnea CP or abdominal pain and dysuria states leg swelling better than when he left hospital Physical Exam 2 Physical Exam: PHYSICAL EXAMINATION Last 24h vital signs reviewed, see documentation in flowsheet General: comfortable appearing, no distress HEENT: Normocephalic, atraumatic, pupils round and equal, sclerae anicteric, no conjunctival injection, moist mucus membranes Lungs: Normal respiratory effort. Clear to auscultation bilaterally. No RRW Heart: Regular rate and rhythm, no murmurs. No JVD Abdomen: Soft, nontender, nondistended. Bowel sounds present. Extremities: Warm, dry, well-perfused. 2-3+ lower extremity edema. Neuro: Alert and oriented x person place and basic situation, improved, face symmetric, moves 4 extremities, +mild asterixis Psych: Normal affect and behavior Results & Data Results & Data Vital Signs (Past 12 Hours) Vital Signs Temp Pulse Pulse Resp BP BP Pulse Ox 01/14/24 13:58 36.2 C L 98 01/14/24 12:00 86 31 H 135/82 89 L 01/14/24 08:00 84 01/14/24 08:00 01/14/24 07:30 36.4 C L 75 22 158/79 H 94 01/14/24 04:13 01/14/24 03:41 36.4 C L 71 23 135/71 96 O2 Del Method O2 Del Method O2 Flow Rate 01/14/24 13:58 BiPAP 01/14/24 12:00 Room Air 01/14/24 08:00 01/14/24 08:00 Nasal Cannula 2 01/14/24 07:30 BiPAP 01/14/24 04:13 BiPAP 01/14/24 03:41 BiPAP Laboratory Results 01/14/24 04:02 01/14/24 04:02 PG Care Time/CCT Total # of Minutes Spent Total Time Spent with Patient: Total time spent is greater than 50% in coordination of care (as documented) at patient's floor/unit and/or counseling patient: Coding Level of Care Code 59266 SUB INP/OBS CARE 3/50MIN Diagnoses Acute and chronic respiratory failure with hypercapnia J96.22 Acute hypotension I95.9 Acute hypoxemic respiratory failure J96.01 Non-ST elevation [place] (NSTEMI) I21.4 Acute UTI (urinary tract infection) N39.0 Acute metabolic encephalopathy G93.41 Morbid obesity with BMI of 45.0-49.9, adult E66.01; Z68.42
[2024-01-14] MEDS: INSULIN ASPART PER UNIT CHARGE SC SCH (17:34)
[2024-01-14 18:39] LABS: iSTAT Allen Test Pass; iSTAT Art Bld Gas pCO2 Correct 104 mmHg (35-46); iSTAT Art Bld Gas pH Corrected 7.099 (7.35-7.45); iSTAT Arterial Blood Gas HCO3 32 meg/L (19-24); iSTAT Arterial Blood Gas pCO2 104 mmHg (35-46); iSTAT Arterial Blood Gas pO2 113 mmHg (80-95); iSTAT Arterial Blood Gas pO2 C 114; iSTAT Carbon Dioxide 35 mmol/L (24-31); iSTAT FiO2 60 %; iSTAT Hematocrit 46 % (42-52); iSTAT Hemoglobin 15.6 g/dl (14.0-18.0); iSTAT Potassium 3.9 mmol/L (3.3-5.0); iSTAT Site R Radial; iSTAT Sodium 142 mmol/L (135-144)
[2024-01-14] MEDS ORDERED: STAT IV Infusion **Titration per Protocol STA (18:53)
[2024-01-14] MEDS ORDERED: MoRPHine SULFATE 2 MG/ML CARP IV PRN (18:53)
[2024-01-14] MEDS ORDERED: ONDANSETRON INJ 2 MG/ML 2 ML VIAL IV PRN (18:53)
[2024-01-14] MEDS ORDERED: ACETAMINOPHEN 650 MG SUPP PR PRN (18:53)
[2024-01-14] MEDS ORDERED: LORazepam 0.5 MG in SYRINGE 0.25 ML IV PRN (18:53)
[2024-01-14] MEDS ORDERED: MoRPHine BOLUS from BAG IV PRN (18:53)
--- NOTE | 2024-01-14 18:53 | Communication Note ---
Date of Service: January 14, 2024 Called to bedside in ICU for abrupt deterioration in vital signs. Had a good day, was alert, visited with his son, was more sleepy late afternoon so placed back on bipap. After 6pm began dropping O2 sats, became tachycardic, hypertensive and unresponsive. RTs and RN at bedside. On exam unresponsive to voice and sternal rub, pupils 1.5 mm equal and reactive with roving eye mvt but not tracking to voice, poor chest rise on Bipap with ineffective ventilation, apneas, minimal tidal volumes. abg 7.09 / 104 / 113 on 100% FiO2 by bipap. EKG with sinus tachycardia and RBBB unchanged. A/P: Progressive acute on chronic hypercarbic respiratory failure, respiratory acidosis. Bipap has been ineffective to achieve adequate ventilation and now comatose and unresponsive. I called his son Bassam by phone. Mr. Medrano has been very consistent in his wishes that he would not want mechanical ventilation or CPR and Bassam reports that he has been "waiting for it" [his dying] since the of his seven years ago. Transitioning to comfort measures at this time.
[2024-01-14] MEDS: MoRPHine SULFATE 2 MG/ML CARP IV PRN (19:17)
[2024-01-14] MEDS: MoRPHine SULF/NSS 100 MG/100 ML BAG IV SCH (20:17)
[2024-01-14] MEDS ORDERED: TAMSULOSIN HCL 0.4 MG CAP PO SCH (21:00)
[2024-01-14] MEDS ORDERED: ATORVASTATIN 20 MG TAB PO SCH (21:00)
--- NOTE | 2024-01-15 12:06 | Electrocardiogram Report ---
Test Reason : Blood Pressure : / mmHG Vent. Rate : 121 BPM Atrial Rate : 121 BPM P-R Int : 164 ms QRS Dur : 136 ms QT Int : 310 ms P-R-T Axes : 030 -65 011 degrees QTc Int : 440 ms Sinus tachycardia Left axis deviation Right bundle branch block Left anterior fascicular block Abnormal ECG When compared with ECG of 14-JAN-2024 05:36, Premature atrial complexes are no longer Present Vent. rate has increased BY 50 BPM Confirmed by Pb Ramires ([id number]) on 01/15/2024 12:06:11 PM Referred By: REFERRED SELF Confirmed By:Tee Ramires
--- NOTE | 2024-01-15 12:20 | Electrocardiogram Report ---
Test Reason : Blood Pressure : / mmHG Vent. Rate : 077 BPM Atrial Rate : 078 BPM P-R Int : 000 ms QRS Dur : 148 ms QT Int : 406 ms P-R-T Axes : 000 -51 001 degrees QTc Int : 459 ms Poor data quality, interpretation may be adversely affected sinus rhyth with PACs Right bundle branch block Left anterior fascicular block Bifascicular block Abnormal ECG When compared with ECG of 12-JAN-2024 21:43, (unconfirmed) T wave inversion no longer evident in Anterior leads Confirmed by Pb Ramires ([id number]) on 01/15/2024 12:19:51 PM Referred By: REFERRED SELF Confirmed By:Tee Ramires
--- NOTE | 2024-01-15 16:48 | Hospitalist Progress Note ---
Date of Service January 15, 2024 Assessment & Plan (1) Acute and chronic respiratory failure with hypercapnia: Plan: 83 y/o with ABDULLAHI/OHS and paralyzed hemidiaphragm with chronic respiratory failure on nocturnal bipap at home Recently admitted 12/21-12/30 with proteus bacteremia related to left sided obstructing nephrolithiasis, ureteral stent placed, completed 14 course antibiotics with oral cipro on discharge. During that admission he also had acute on chronic hypoxemic and hypercapneic respiratory failure and was treated for acute on chronic diastolic heart failure and pneumonia, hypoxia resolved. Did well at home for a time and was due for his urology appointment for stone procedure 01/10-01/11 but was admitted when found to be confused and somnolent at therapy. Was hypotensive, requiring fluid and albumin boluses and brief pressors at time of admission. Was also hypercarbic with CO2 of 79. acute metabolic encephalopathy related to acute on chronic hypercarbic respiratory failure -initially improved after admission with continuous bipap. Had a good vbg on AM of 01/14 and had a good day was more alert and visited with son. Afternoon more sleepy and placed on bipap. Evening 01/14 had precipitous worsening with loss of alertness/responsiveness, hypoxia, worsening vital signs. Found to be in recurrent acute hypercarbic respiratory failure abg 7.10/104/113 on 100%FiO2 with bipap. Was struggling, tachycardic, hypertensive, and had ineffective ve ntilation with bipap. Mr. Medrano had consistently maintained that he did now want intubation and mechanical ventilation. Decision was made with his son to transition to comfort care. -overnight has been on low dose continuous morphine from 1-2 mg/h and is much more comfortable, respirations nonlabored, but is not alert and has been minimally verbal -updated his son Bassam at bedside 01/14. (2) Acute hypotension: Plan: Significant hypotension on admission, resolved Treated for suspected severe sepsis on admission, however, remains unclear to me whether infected, unable to determine Proteus UTI and bacteremia last admission completed 14d of ABX Ureteral stent in place Was initially treated with broad-spectrum antibiotics. Urine culture has only grown yeast and blood cultures one bottle with a strep that is likely contaminant (3) Acute hypoxemic respiratory failure: Plan: present on admission, related to hypoventilation (4) Non-ST elevation [place] (NSTEMI): Plan: Type 2 nstemi / myocardial strain related to respiratory failure and sepsis Mild troponin elevation which downtrended No chest pain or acute EKG changes, no evidence of ACS -Echo 12/24/23 with normal EF 55-60%, mild conc LVH, no rwma's, technically limited study (5) Acute UTI (urinary tract infection): Plan: Thought to have UTI on admission but urine culture grew only yeast, thus ruled out. Underwent cystoscopy with deployment of L ureteral stent by Dr Willett for left-sided mid-ureteral stone 12/22 -was planned for stone procedure and stent exchange this week but became acutely ill BPH - continue tamsulosin (6) Acute metabolic encephalopathy: Plan: present on admission related to hypercarbia, hypoxia, hypotension, possible sepsis (7) Morbid obesity with BMI of 45.0-49.9, adult: Plan: and ABDULLAHI/OHS with respiratory failure Plan Other chronic medical problems addressed this admission: Diabetes mellitus type 2 History of hypertension Chronic diastolic heart failure Bilateral LE lymphedema Depression with anxiety hypomagnesemia Updated son Bassam by phone 01/12, 01/13, in person 01/14 Admission and Anticipated Discharge Date Admission Date: January 13, 2024 Subjective awake but minimally verbal, son and another family member visiting in room appears much more comfortable than last night Physical Exam Physical Exam: PHYSICAL EXAMINATION Last 24h vital signs reviewed, see documentation in flowsheet General: comfortable appearing, no distress HEENT: Normocephalic, atraumatic, pupils round and equal, sclerae anicteric, no conjunctival injection, moist mucus membranes Lungs: Resp nonlabored, even, shallow, Clear to auscultation bilaterally. No RRW Heart: Regular rate and rhythm, no murmurs. No JVD Abdomen: Soft, nontender, nondistended. Extremities: Warm, dry, well-perfused. 2-3+ lower extremity edema. Neuro: Awake but staring off, at times tracked me and gave one word answer Psych: calm no agitation or distress Results & Data Results & Data Vital Signs (Past 12 Hours) Vital Signs O2 Del Method 01/15/24 11:00 Room Air PG Care Time/CCT Total # of Minutes Spent Total Time Spent with Patient: Total time spent is greater than 50% in coordination of care (as documented) at patient's floor/unit and/or counseling patient: Coding Level of Care Code 69066 SUB INP/OBS CARE 2MIN Diagnoses Acute and chronic respiratory failure with hypercapnia J96.22 Acute hypotension I95.9 Acute hypoxemic respiratory failure J96.01 Non-ST elevation [place] (NSTEMI) I21.4 Acute UTI (urinary tract infection) N39.0 Acute metabolic encephalopathy G93.41 Morbid obesity with BMI of 45.0-49.9, adult E66.01; Z68.42
[2024-01-16] MEDS: GLYCOPYRROLATE 0.2 MG/ML VIAL IV PRN (10:40)
--- NOTE | 2024-01-16 14:18 | Hospitalist Progress Note ---
Date of Service January 16, 2024 Assessment & Plan (1) Acute and chronic respiratory failure with hypercapnia: Plan: 83 y/o with ABDULLAHI/OHS and paralyzed hemidiaphragm with chronic respiratory failure on nocturnal bipap at home Recently admitted 12/21-12/30 with proteus bacteremia related to left sided obstructing nephrolithiasis, ureteral stent placed, completed 14 course antibiotics with oral cipro on discharge. During that admission he also had acute on chronic hypoxemic and hypercapneic respiratory failure and was treated for acute on chronic diastolic heart failure and pneumonia, hypoxia resolved. Did well at home for a time and was due for his urology appointment for stone procedure 01/10-01/11 but was admitted when found to be confused and somnolent at therapy. Was hypotensive, requiring fluid and albumin boluses and brief pressors at time of admission. Was also hypercarbic with CO2 of 79. acute metabolic encephalopathy related to acute on chronic hypercarbic respiratory failure -initially improved after admission with continuous bipap. Had a good vbg on AM of 01/14 and had a good day was more alert and visited with son. Afternoon more sleepy and placed on bipap. Evening 01/14 had precipitous worsening with loss of alertness/responsiveness, hypoxia, worsening vital signs. Found to be in recurrent acute hypercarbic respiratory failure abg 7.10/104/113 on 100%FiO2 with bipap. Was struggling, tachycardic, hypertensive, and had ineffective ve ntilation with bipap. Mr. Medrano had consistently maintained that he did now want intubation and mechanical ventilation. Decision was made with his son to transition to comfort care. -comfortable on low dose continuous morphine 2 mg/h, no longer alert - continue -updated his son Bassam at bedside 01/14. (2) Acute hypotension: Plan: Significant hypotension on admission, resolved Treated for suspected severe sepsis on admission, however, remains unclear to me whether infected, unable to determine Proteus UTI and bacteremia last admission completed 14d of ABX Ureteral stent in place Was initially treated with broad-spectrum antibiotics. Urine culture has only grown yeast and blood cultures one bottle with a strep that is likely contaminant (3) Acute hypoxemic respiratory failure: Plan: present on admission, related to hypoventilation (4) Non-ST elevation [place] (NSTEMI): Plan: Type 2 nstemi / myocardial strain related to respiratory failure and sepsis Mild troponin elevation which downtrended No chest pain or acute EKG changes, no evidence of ACS -Echo 12/24/23 with normal EF 55-60%, mild conc LVH, no rwma's, technically limited study Bifascicular block present on admission - monitored with tele, serial EKG, monitored electrolytes (5) Acute UTI (urinary tract infection): Plan: Thought to have UTI on admission but urine culture grew only yeast, thus ruled out. Underwent cystoscopy with deployment of L ureteral stent by Dr Willett for left-sided mid-ureteral stone 12/22 -was planned for stone procedure and stent exchange this week but became acutely ill BPH - continue tamsulosin (6) Acute metabolic encephalopathy: Plan: present on admission related to hypercarbia, hypoxia, hypotension, possible sepsis (7) Morbid obesity with BMI of 45.0-49.9, adult: Plan: and ABDULLAHI/OHS with respiratory failure Plan Other chronic medical problems addressed this admission: Diabetes mellitus type 2 History of hypertension Chronic diastolic heart failure Bilateral LE lymphedema Depression with anxiety hypomagnesemia Updated son Bassam by phone 01/12, 01/13, in person 01/14 Admission and Anticipated Discharge Date Admission Date: January 13, 2024 Subjective has declined today, gurgling secretions and unaroused by voice and exam family not in room currently Physical Exam Physical Exam: PHYSICAL EXAMINATION Last 24h vital signs reviewed, see documentation in flowsheet General: comfortable appearing HEENT: eyes closed, dry MM Lungs: Upper airway gurgling, not controlling secretions. Resp nonlabored, ev en, shallow, Clear to auscultation bilaterally. No RRW Heart: Regular rate and rhythm, no murmurs. No JVD Abdomen: Soft, nontender, nondistended. Extremities: Warm, dry, well-perfused. 2-3+ lower extremity edema. Neuro: Unresponsive to voice and exam Psych: unresponsive PG Care Time/CCT Total # of Minutes Spent Total Time Spent with Patient: Total time spent is greater than 50% in coordination of care (as documented) at patient's floor/unit and/or counseling patient: Coding Level of Care Code 00551 SUB INP/OBS CARE 125MIN Diagnoses Acute and chronic respiratory failure with hypercapnia J96.22 Acute hypotension I95.9 Acute hypoxemic respiratory failure J96.01 Non-ST elevation [place] (NSTEMI) I21.4 Acute UTI (urinary tract infection) N39.0 Acute metabolic encephalopathy G93.41 Morbid obesity with BMI of 45.0-49.9, adult E66.01; Z68.42
[2024-01-17] MEDS: ATROPINE SULFATE 1% OP SOLN 5 ML BTL SL PRN (03:15)
--- NOTE | 2024-01-17 06:45 | Death Pronouncement Note ---
Date of Service January 17, 2024 Pronouncement Note Admission Date January 13, 2024 Date and Time of Date of : 01/17/24 Time of : 06:20 Preliminary Cause of (1) Acute and chronic respiratory failure with hypercapnia: (2) Acute hypotension: (3) Acute hypoxemic respiratory failure: (4) Non-ST elevation [place] (NSTEMI): (5) Acute UTI (urinary tract infection): (6) Acute metabolic encephalopathy: (7) Morbid obesity with BMI of 45.0-49.9, adult: Summary Called to bedside when nursing noted patient had ceased respirations. Evaluated and confirmed at 0620 that patient was without pulse, respirations, or heart sounds. Pupils were fixed and dilated. Family contacted. home documented. Family will not be coming to bedside. Additional Data Confirmation of : no pulse, no respirations, no heart sounds and pupils fixed and dilated Pronouncement Performed By: Resident Physician Family: contacted (son) Attending/PCP notified?: Yes Attending physician: Araceli Browning MD Resident Activity Tracking Resident Involvement: Resident Care Provided Care Provided: Adult Hospital Medicine (night)
--- NOTE | 2024-01-17 15:45 | Discharge Summary ---
Date of Service January 17, 2024 Admission HPI Per Admitting Provider The patient is an 83-year-old male with a past medical history including CHF, urine tract infection, history of sepsis due to Proteus species during admission from 12/21-12/31/2023, pneumonia, history of DVT, diabetes mellitus type 2, subdural hematoma, BPH, depression with anxiety, dyslipidemia and hypertension. When the patient arrived to the emergency department, he was very confused and unable to spot emergency department staff. He was also placed on oxime mask due to mild hypoxia. Upon my assessment, the patient did receive 2 L normal saline, and the patient was able to answer questions, and be conversant, which was significantly improved from his original presentation. Urinalysis was suggestive of recurrent UTI. Patient was somewhat hypotensive prior to receiving fluid resuscitation, with blood pressure at its lowest being 57/41, and did improve significantly as noted after 2 L of fluid to 98/54. Plans are to admit the patient to PCU overflow in the ICU, in the event that he becomes hypotensive again. Principal Diagnosis acute on chronic hypercapnic respiratory failure related to ABDULLAHI/OHS and chronically paralyzed left hemidiaphragm Discharge Data Allergies Allergy/AdvReac Type Severity Reaction Status Date / Time No Known Allergies Allergy Unverified 03/26/23 10:15 Consultations 01/13/24 01:08 ED Decision to Admit Stat Ordered Studies 01/12/24 21:54 CT head/brain wo con Stat Hospital Course (1) Acute and chronic respiratory failure with hypercapnia: 83 y/o with ABDULLAHI/OHS and paralyzed hemidiaphragm with chronic respiratory failure on nocturnal bipap at home Recently admitted 12/21-12/30 with proteus bacteremia related to left sided obstructing nephrolithiasis, ureteral stent placed, completed 14 course antibiotics with oral cipro on discharge. During that admission he also had acute on chronic hypoxemic and hypercapneic respiratory failure and was treated for acute on chronic diastolic heart failure and pneumonia, hypoxia resolved. Did well at home for a time and was due for his urology appointment for stone procedure 01/10-01/11 but was admitted when found to be confused and somnolent at therapy. Was hypotensive, requiring fluid and albumin boluses and brief pressors at time of admission. Was also hypercarbic with CO2 of 79. acute metabolic encephalopathy related to acute on chronic hypercarbic respiratory failure -initially improved after admission with continuous bipap. Had a good vbg on AM of 01/14 and had a good day was more alert and visited with son. Afternoon more sleepy and placed on bipap. Evening 01/14 had precipitous worsening with loss of alertness/responsiveness, hypoxia, worsening vital signs. Found to be in recurrent acute hypercarbic respiratory failure abg 7.10/104/113 on 100%FiO2 with bipap. Was struggling, tachycardic, hypertensive, and had ineffective ventilation with bipap. Mr. Medrano had consistently maintained that he did now want intubation and mechanical ventilation. Decision was made with his son to transition to comfort care. -was treated for possible sepsis at admission but infection was never lewis ntified. Suspect he had progressive loss of functional status and loss of respiratory muscle strength over time, that accelerated with recent illness and hospitalization in late November, and eventually bipap was ineffective for his respiratory failure. -remained comfortable on low dose continuous morphine but did not regain alertness, peacefully a few days later (2) Acute hypotension: Significant hypotension on admission, resolved Treated for suspected severe sepsis on admission, however, infection was not confirmed and cultures were negative, unable to determine whether sepsis was present on admission Proteus UTI and bacteremia last admission completed 14d of ABX Ureteral stent in place Was initially treated with broad-spectrum antibiotics until transition to comfort measures. Urine culture has only grown yeast and blood cultures one bottle with a strep that is likely skin contaminant, procalcitonin was negative making pneumonia unlikely. (3) Acute hypoxemic respiratory failure: present on admission, related to hypoventilation (4) Non-ST elevation [place] (NSTEMI): Type 2 nstemi / myocardial strain related to respiratory failure and sepsis Mild troponin elevation which downtrended No chest pain or acute EKG changes, no evidence of ACS -Echo 12/24/23 with normal EF 55-60%, mild conc LVH, no rwma's, technically limited study Bifascicular block present on admission - monitored with tele, serial EKG, monitored electrolytes (5) Acute UTI (urinary tract infection): Thought to have UTI on admission but urine culture grew only yeast, thus ruled out. Underwent cystoscopy with deployment of L ureteral stent by Dr Willett for left-sided mid-ureteral stone 12/22 -was planned for stone procedure and stent exchange this week but became acutely ill BPH - continue tamsulosin (6) Acute metabolic encephalopathy: present on admission related to hypercarbia, hypoxia, hypotension, possible sepsis (7) Morbid obesity with BMI of 45.0-49.9, adult: and ABDULLAHI/OHS with respiratory failure Plan Other chronic medical problems addressed this admission: Diabetes mellitus type 2 History of hypertension Chronic diastolic heart failure Bilateral LE lymphedema Depression with anxiety hypomagnesemia Updated son Bassam by phone 01/12, 01/13, in person 01/14 Total Time Total Time Spent Total Time Spent (In Minutes): 25 minutes Discharge Plan Discharge Items Patient Disposition: Other Date/Time: 01/17/24 06:20 Coding Level of Care Code 08787 INP/OBS DISCH >30 MIN Diagnoses Acute and chronic respiratory failure with hypercapnia J96.22 Acute hypotension I95.9 Acute hypoxemic respiratory failure J96.01 Non-ST elevation [place] (NSTEMI) I21.4 Acute UTI (urinary tract infection) N39.0 Acute metabolic encephalopathy G93.41 Morbid obesity with BMI of 45.0-49.9, adult E66.01; Z68.42
== END 2024-01-17 06:57 | disposition expired | DRG 871 ==
LOC: ED 21:32 → 1E 01-13 01:28 → SUATTDRO 01-13 01:28 → 1E 01-13 03:13 → 3W 01-14 22:06